=== PATIENT | male | born 1950 | race Caucasian/White ===

== ENCOUNTER 2019-11-05 11:06 | Inpatient (IN) | payer MEDICARE, SELFPAY ==
[2019-11-05] VITALS (22 sets, daily range): BP systolic 121–153; BP diastolic 53–76; PULSE 72–90; RESP 16–32; TEMP 37.1; O2SAT 85–100; BMI 29.0
--- NOTE | ~2019-11-05 | XR_ITS ---
EXAMINATION: XR chest 1V portable INDICATION: Acute respiratory failure TECHNIQUE: Portable AP chest at 0506 hours COMPARISON: 11/06/2019 FINDINGS: Diffuse airspace opacities persist with slight worsening in the left midlung zone. There is subsegmental atelectasis in the right midlung zone. No pleural effusion or pneumothorax is identifie d. The cardiomediastinal silhouette is normal. IMPRESSION: 1. Diffuse airspace opacities with slight worsening in the left midlung zone, likely pneumonia. Reviewed, dictated and finalized at location A. NEERING OPERATOR IMPRESSION: 1. Diffuse airspace opacities with slight worsening in the left midlung zone, l ikely pneumonia.
--- NOTE | ~2019-11-05 | US_ITS ---
EXAMINATION:US venous doppler LE BI INDICATION:Acute respiratory failure with edema. TECHNIQUE: Multiple grayscale, color flow and Doppler images of the lower extremity deep venous syste ms were obtained and reviewed. COMPARISON:No prior studies for comparison. FINDINGS: The common femoral, superficial femoral and popliteal veins demonstrate normal respiratory variation, augmentation and compressibility. Color flow is also seen within the posterior tibial, pe roneal, greater saphenous and profunda veins. IMPRESSION: 1: No lower extremity deep venous thrombosis. Reviewed, dictated and finalized at location A. ERECTOR
--- NOTE | ~2019-11-05 | XR_ITS ---
EXAMINATION: XR chest 1V portable EXAM DATE: 11/05/2019 12:44 INDICATION: Shortness of breath and respiratory distress. TECHNIQUE: Portable AP frontal chest x-ray was obtained. There is no prior study for comparison. FINDINGS: Extensive bilateral reticulonodular airspace disease, could be acute or chronic infectious process or edema. Also possibility of superimposed chronic interstitial lung disease. Please clinical ly correlate. There is no pneumothorax suspected. There are no pleural effusions. Cardiomediastinal s ilhouette is normal. IMPRESSION: Extensive bilateral reticulonodular airspace disease appearance most consistent with inf ectious process but please clinically correlate. Reviewed, dictated and finalized at location B. ETRIC ANAESTHETIST IMPRESSION: Extensive bilateral reticulonodular airspace disease appearance mo st consistent with infectious process but please clinically correlate.
--- NOTE | ~2019-11-05 | XR_ITS ---
XR chest 1V portable DATE: 11/06/2019 07:55 INDICATION: Shortness of breath, respiratory distress. COPD. TECHNIQUE: Portable AP chest on 11/06/2019 at 0751 hours COMPARISON: 11/05/2019 portable AP chest FINDINGS: There are persistent diffuse bilateral reticulonodular infiltrates, mildly increased since 11/05/2019. There is mild discoid atelectasis or scarring in the right upper lung. Heart size appears normal. There is aortic calcification. No apparent pleural effusion. No pneumothor ax. Osteopenia. IMPRESSION: Diffuse bilateral reticulonodular infiltrates, mildly increased since 11/05/2019 Reviewed, dictated and finalized at location A. ING LOT CHAUFFEUR IMPRESSION: Diffuse bilateral reticulonodular infiltrates, mildly increased sin ce 11/05/2019
--- NOTE | ~2019-11-05 | XR_ITS ---
EXAMINATION: XR chest 1V portable DATE: 11/08/2019 05:51 INDICATION: Chronic obstructive pulmonary disease exacerbation. TECHNIQUE: A single frontal view of the chest was obtained on 2 radiographs. COMPARISON: Chest single view 11/07/2019, chest 2 views 06/03/2019 FINDINGS: The patient is rotated to his right. There are airspace opacities in all right lung zones a nd in left mid and lower lung zones. No pleural effusion or pneumothorax. The heart size is normal. IMPRESSION: 1. Diffuse lung disease with worsening on the left, consistent with pulmonary edema versus pneumonia. Reviewed, dictated and finalized at location A. CTOR OF MECHANICAL ENGINEERING IMPRESSION: 1. Diffuse lung disease with worsening on the left, consistent with pulmonary e robert versus pneumonia.
--- NOTE | 2019-11-05 11:24 | ED.SOB ---
HPI - SOB/Dyspnea General Chief Complaint: Shortness of Breath/Dyspnea Stated Complaint: RESP DISTRESS Time Seen by Provider: 11/05/19 11:21 Source: patient Mode of arrival: EMS Limitations: no limitations History of Present Illness HPI Narrative: Pt is a 69 y/o male with a H/o COPD, who presents to the ED, via EMS, from home with c/o SOB. He reports associated cough, but denies CP or a fever. Pt is on 3L home O2. His Pulmonoligist is Dr. Bonilla and his PCP is Dr. Shi. Per spouse, pt has bronchiectasis and the mid level game designer wanted to admit him to the hospital 2 days ago but he was stubborn and went home instead. Pt's spouse woke up at 3AM and the pt's O2 Sat was non-detectable and she upped his O2 and got a reading of 86%. Per spouse, pt's dilantin levels have been low and he is supposed to see a neurologist. Pt's spouse states that he refused to go to the ED and finally she decided she was not going to wait any longer and she called EMS. MD elicited complaint: shortness of breath Pertinent past history: COPD Onset (ago): unknown Context: recent illness (bronchiectasis) Timing: progressively worsening Relieving factors: oxygen Known history of: COPD Associated symptoms: cough Treatment prior to arrival: oxygen Related Data Home oxygen amount: 3 liters Home Medications Medication Instructions Recorded Confirmed albuterol sulfate 11/05/19 aspirin 81 mg PO DAILY 11/05/19 11/05/19 atorvastatin 11/05/19 lisinopril 11/05/19 phenytoin sodium extended PO 11/05/19 Allergies Allergy/AdvReac Type Severity Reaction Status Date / Time No Known Allergies Allergy Verified 11/05/19 11:31 Review of Systems Review of Systems: All systems reviewed & are unremarkable except as noted in HPI and below Constitutional: Constitutional: Denies fever(s) Cardiovascular: Cardiovascular: Denies chest pain Respiratory: Respiratory: Reports cough and Reports dyspnea PMFSH Past Medical History Medical History (Updated 11/05/19 @ 14:01 by Oumar Sumner MD) Bronchiectasis COPD (chronic obstructive pulmonary disease) On home O2 Surgical History Surgical History (Updated 11/05/19 @ 12:38 by Imtiaz Krishnan) No significant past surgical history Family History Family History (Updated 07/02/18 @ 15:03 by DOCTOR UNKNOWN) Other Diabetes mellitus Family history of coronary artery disease Social History Social History Smoking status: Former smoker Smoking end date: 10/08/10 Alcohol intake: never Gender identity (if verbalized by the patient): Male Exam Const: General: alert Nutritional Appearance: well nourished Limitations: no limitations HENMT: Head: normal to inspection Eyes: Pupils: Equal, round and reactive pupils present Neck: Neck: normal visual inspection Chest: Chest palpation & inspection: normal inspection of the chest Resp: Auscultation: wheezes and diminished lung sounds Cardio: Rate: regular rate GI: GI Palp: Yes Soft to palpation Skin: General skin exam: normal color Neuro: General: patient oriented x3 and moves all extremities Extrem: General: normal to inspection Course Course Emergency Course: Obtained history from his as well patient is been in and out with respiratory to difficulty over the last several years. After placing patient on the BiPAP for 1 and half hour his blood gases have markedly improved. I have discussed labs, EKG chest x-ray findings with the patient and the . We will admit him to the ICU for respiratory failure. Discussed with the Dr. Villafuerte and Dr. Lauren . Consultations Consultation #1: Discussed case with Dr. Lauren, the outpatient therapist. Accepted admission to the ICU. Date: 11/05/19 Time: 12:56 Vital Signs Vital signs: Vital Signs Pulse Rate 89 11/05/19 11:16 Respiratory Rate 32 H 11/05/19 11:16 Blood Pressure 139/64 11/05/19 11:16 Pulse Oximetry 100 11/05/19 11:16
--- NOTE | 2019-11-05 11:27 | ECG_ITS ---
Measurements Intervals [place] Rate: 88 P: 71 IL: 153 QRS: 75 QRSD: 91 T: 52 QT: 335 QTc: 406 Interpretive Statements SINUS RHYTHM BASELINE ARTIFACT- V1-V2 NORMAL ECG Electronically Signed On 11-05-2019 16:00:38 CASH SALES AUDIT CLERK by Julien Ku D.O.
[2019-11-05 11:50] LABS: Basophils Absolute Auto 0.1 K/mm3 (0.0-0.1); Basophils Percent Auto 0.5 % (0.2-1.2); Eosinophils Absolute Auto 0.1 K/mm3 (0-0.3); Eosinophils Percent Auto 1.1 % (0-4.4); Hematocrit 43.1 % (42.0-52.0); Hemoglobin 12.6 g/dL (14.0-18.0); Immature Granulocyte Percent A 1.1 % (0-0.5); Lymphocytes Absolute Auto 0.75 K/mm3 (0.9-3.2); Lymphocytes Percent Auto 8.1 % (18.3-44.2); Mean Corpuscular HGB Conc 29.2 g/dl (32-36); Mean Corpuscular Hemoglobin 31.8 pg (26-34); Mean Corpuscular Volume 108.8 fl (80-100); Mean Platelet Volume 9.8 fl (7.4-10.4); Monocytes Absolute Auto 0.9 K/mm3 (0.1-0.6); Monocytes Percent Auto 9.3 % (2.6-8.5); Neutrophils Absolute Auto 7.4 K/mm3 (1.3-6.7); Neutrophils Percent Auto 79.9 % (45.5-73.1); Nucleated Red Blood Cells Perc 0.2 % (0.0-0.2); Platelet Count Result 156 k/mm3 (150-375); Red Blood Count 3.96 M/mm3 (4.6-6.20); Red Cell Distribution Width 17.6 % (11.5-14.5); White Blood Count 9.3 K/mm3 (4.5-10.0)
[2019-11-05 11:52] LABS: Base Excess ABG 21.7 mEq/l (+/-2.0); Fractional Inspired Oxygen 32 %; HCO3 ABG 56.3 mEq/l (22.0-26.0); Oxygen Content ABG 15.3 %vol (16.0-22.0); Oxyhemoglobin 81.8 % THb (90.0-100.0); PO2 ABG 53.7 mmHg (80.0-100.0); PO2 FiO2 Ratio Arterial Blood 1.68 %; Total Hemoglobin 13.3 g/dL (12.0-18.0)
[2019-11-05 12:13] LABS: Add Urine Microscopic? YES; Appearance Urine Cloudy (Clear); Bilirubin Urine Negative (Negative); Blood Urine Negative (Negative); Color Urine Amber (Yellow); Glucose Urine UA Negative (Negative); Ketones Urine Negative (Negative); Leukocyte Esterase Ur Negative LEU/UL (Negative); Nitrate Urine Negative (Negative); Protein Urine 2+ mg/dL (Negative); RBC Urine 0-2 /hpf (0-2); Specific Grav Ur 1.028 (1.001-1.035); Squamous Epithelial Cell Urine Occasional /hpf (Few); WBC Urine 0-3 /hpf
[2019-11-05 12:29] LABS: Platelet Estimate Adequate (Adequate)
[2019-11-05 12:31] LABS: Device NASAL CANNULA; Modified Allen's Test Pass; Oxygen Saturation ABG 76.7 % (95.0-100.0); PCO2 ABG 140.6 mmHg (35.0-45.0); Site Drawn RIGHT RADIAL
[2019-11-05 13:28] LABS: Fractional Inspired Oxygen 40 %; HCO3 ABG 43.7 mEq/l (22.0-26.0); Methemoglobin ABG 0.2 %THb (0-1.5); Oxygen Content ABG 15.2 %vol (16.0-22.0); Oxyhemoglobin 81.8 % THb (90.0-100.0); PO2 FiO2 Ratio Arterial Blood 1.27 %; Total Hemoglobin 13.2 g/dL (12.0-18.0)
[2019-11-05 13:28] LABS: Alanine Aminotransferase 16 U/L (4-50); Albumin Level 3.3 g/dL (3.5-5.1); Alkaline Phosphatase 112 U/L (38-126); Aspartate Amino Transferase 28 U/L (17-59); Bilirubin,Total 0.2 mg/dL (0.2-1.3); Blood Urea Nitrogen 28 mg/dL (9-20); Calcium 8.6 mg/dL (8.4-10.2); Carbon Dioxide > 40 mmol/L (22-30); Chloride 90 mmol/L (98-107); Estimated CRCL calculation 62 ml/min; Estimated Glomerular Filt Rate > 60; Glucose 90 mg/dL (75-110); Potassium 5.1 mmol/L (3.4-5.0); Sodium 141 mmol/L (137-145)
[2019-11-05 13:31] LABS: pH ABG 7.246 (7.350-7.450)
[2019-11-05 13:32] LABS: Device NON-INVASIVE VENT; Modified Allen's Test Pass; PCO2 ABG 102.8 mmHg (35.0-45.0); Site Drawn RIGHT RADIAL
[2019-11-05 13:33] LABS: Non-Invasive Expiratory Pressure 12 CMH2O; Non-Invasive Inspiratory Pressure 20 CMH2O; Non-Invasive Vent Rate 14 /MIN
[2019-11-05 13:36] LABS: NT Pro B Type Natriuretic Pept 754 PG/ML (5-100)
--- NOTE | 2019-11-05 15:27 | ADMGEN ---
This patient, Manuel Zavaleta, was admitted to Intensive Care Unit-3. Patient/family oriented to hospital policies and general routines including ID bracelet, bed and alarms, visiting hours, pain management, procedures, bathroom and other care routines, personal items, smoking policy, room service/diet, and visiting hours. Valuables list has been completed. Information on how to activate the Rapid Response Team has been discussed. Patient/Family are encouraged to report perceived risks to care and to ask questions if they do not understand what they are told or what they should do.
[2019-11-05] MEDS: SODIUM CHLORIDE 0.9% IV 1,000 ML 100 ML IV CONT (16:09)
--- NOTE | 2019-11-05 16:46 | WPDCNINT ---
Assessment and Plan Assessment and plan (1) Acute and chronic respiratory failure: Qualifiers: Respiratory failure complication: hypercapnia Qualified Code(s): J96.22 - Acute and chronic respiratory failure with hypercapnia Code(s): J96.20 - Acute and chronic respiratory failure, unspecified whether with hypoxia or hypercapnia Status: Acute Assessment and Plan: Patient with acute on chronic respiratory failure with severe hypercapnia and hypoxia . However patient`s clinical presentation and vital signs not co-relating with ABG values. Cxr with chronic changes with no acute dense infiltrate or PVC. Patient has been started on Iv steroids for presumed COPD exacerbation . Will check influenza panel . WBC count is normal with no fever. Will hold off on abx. Continue nebs . Multiple BIPAP changes made however no improvement noted in ABG`s. Placed on AVAPS. May need intubation however alert and awake . Echo in past with severe pulmonary HTN . No significant PVC on cxr per my assessment . No LE edema . Hence will hold off any diuresis . However with significant hypoxia there is concern for opening of shunt from worsening pul HTN from long standing COPD. Will check echo in am . Continue supportive care with BIPAP for now . (2) COPD (chronic obstructive pulmonary disease): Code(s): J44.9 - Chronic obstructive pulmonary disease, unspecified Status: Acute Assessment and Plan: Placed on IV steroids , nebs . No significant wheezing but decreased b/l air entry noted.Patient is a current active smoker. started on levaquin . (3) Elevated troponin: Code(s): R79.89 - Other specified abnormal findings of blood chemistry Status: Acute Assessment and Plan: Troponin has gone up to 2. There is no EKG change. Could be secondary to the respiratory failure and demand ischemia. No chest pain. will place on full dose anticoagulation with sq lovenox and will recheck echo in am for wall motion abnormalities (4) Hypertension: Code(s): I10 - Essential (primary) hypertension Status: Acute Assessment and Plan: Blood pressure adequate . BMP with hyperkalemia. hold lisinopril. (5) Obstructive sleep apnea: Code(s): G47.33 - Obstructive sleep apnea (adult) (pediatric) Status: Acute Assessment and Plan: currently on continous BIPAP (6) Seizure disorder: Code(s): G40.909 - Epilepsy, unspecified, not intractable, without status epilepticus Status: Acute Assessment and Plan: Since on continous BIPAP , will change dilantin to IV. (7) DVT prophylaxis: Code(s): Z29.9 - Encounter for prophylactic measures, unspecified Status: Acute Assessment and Plan: on full dose lovenox [place]ider Consult Note Consult date: 11/05/19 Time Seen: 16:00 HPI: Manuel Zavaleta is a 69 year old male with PMHx of COPD, ? bronchiectasis and severe pulmonary HTN who presented to emergency room today due to worsening lethargy and respiratory distress. Per patient had seen his bulb grader on 11/03 who advised him to get admitted due to worsening respiratory status . However patient refused and went back home. Per today he was feeling very tired and lethargic and difficult to arouse . she had also noted edema of b/l LE . Hence she called EMS to bring him to hospital . In ER patient was noted to be in hypercapnic and hypoxic respiratory failure with Ph of 7.2 and Pco2 of 140 with Po2 of 47. He was however awake and alert and able to follow all commands. He was placed on BIPAP and there was some improvement in his ABG. He was tx to ICU for further care. In ICU further changes were made to his BIPAP settings and he was started on IV steroids and nebs. He continued to remain awake and alert with stable vitals . Review of Systems Review of Systems: All systems reviewed & are unremarkable except as noted in HPI and below Constitutional: Constitutional: Den
[2019-11-05 17:08] LABS: Alveolar/Arterial O2 Gradient 101.3 mmHg; Base Excess ABG 18.5 mEq/l (+/-2.0); Fractional Inspired Oxygen 40 %; HCO3 ABG 50.8 mEq/l (22.0-26.0); Oxygen Content ABG 15.3 %vol (16.0-22.0); Oxyhemoglobin 84.2 % THb (90.0-100.0); PO2 ABG 54.1 mmHg (80.0-100.0); PO2 FiO2 Ratio Arterial Blood 1.35 %; Total Hemoglobin 12.9 g/dL (12.0-18.0)
[2019-11-05 17:09] LABS: Oxygen Saturation ABG 80.4 % (95.0-100.0); PCO2 ABG 112.9 mmHg (35.0-45.0); Site Drawn LEFT BRACHIAL; pH ABG 7.271 (7.350-7.450)
[2019-11-05 17:10] LABS: Device NON-INVASIVE VENT; Non-Invasive Expiratory Pressure 10 CMH2O; Non-Invasive Inspiratory Pressure 20 CMH2O; Non-Invasive Vent Rate 14 /MIN
--- NOTE | 2019-11-05 17:36 | PM.IMHP ---
H&P: HPI History of Present Illness Chief complaint: Acute on chronic respiratory failure Narrative: Date of visit 11/05/2019 1630. Manuel Zavaleta is a 69 year old hypertensive white male with COPD and bronchiectasis on home O2 who presented to the emergency room with increasing lethargy she shortness of breath and edema. Been on home O2 for number of years with CPAP at night for his obstructive sleep apnea. He had seen his solar/renewable energy sales Dr. Joiner on 11/03 and was encouraged be admitted at that time but refused to return home. He has gotten more lethargic again short of breath still his brought him to the emergency room today. He denies any increasing cough fever chills or chest pain. Has had some pedal edema ,this somewhat chronic. He has been taking his medication regularly and uses updrafts at home. Been hospitalized here last May for COPD exacerbation respiratory failure he had an echo which showed severe pulmonary hypertension with normal size right ventricle and normal EF with over 70%. No history of DVT or PE. And as stated has chronic cough that has not changed Review of Systems Review of Systems: Narrative: Constitutional: No fever chills. Appetite has been decreased somewhat but weight has been stable Eye: No double vision scotoma Mouth no pharyngitis laryngitis Pulmonary as per present illness CV is stated no chest pain and no palpitation GI no melena hematochezia diarrhea constipation no dysuria no hematuria with history of radiation for prostate cancer Muscle skeletal occasionally upper back discomfort nothing new Integument no skin breakdown rashes Neuro as history of seizures but none since 2011 Psych affect appropriate cooperative The remainder review of systems if not documented here were evaluated and found to be negative [facility] Past Medical History Medical History (Updated 11/05/19 @ 17:46 by Bandar Villafuerte MD) Bronchiectasis COPD (chronic obstructive pulmonary disease) On home O2 Surgical History Surgical History (Updated 11/05/19 @ 12:38 by Imtiaz rKishnan) No significant past surgical history Family History Family History (Updated 07/02/18 @ 15:03 by DOCTOR UNKNOWN) Other Diabetes mellitus Family history of coronary artery disease Social History Social History Smoking packs per day: 0.2 Smoking cigarettes per day: 4.0 Years smoked: 55 Smoking pack-years: 11.00 Smoking status: Current every day smoker Tobacco type: cigarettes Smoking end date: 10/08/10 Alcohol intake: former Gender identity (if verbalized by the patient): Male Spiritual care concerns: No Agree to blood products: Yes Meds Home Medications and Allergies Home Medications Medication Instructions Recorded Confirmed Type albuterol sulfate 11/05/19 History aspirin 81 mg PO DAILY 11/05/19 11/05/19 History atorvastatin 11/05/19 History lisinopril 11/05/19 History phenytoin sodium extended PO 11/05/19 History Allergies Allergy/AdvReac Type Severity Reaction Status Date / Time No Known Allergies Allergy Verified 11/05/19 11:31 Vital Signs Vital Signs - 24 hr 11/05/19 11:16 11/05/19 11:19 11/05/19 11:32 Temperature 37.1 C Pulse Rate 89 89 90 Respiratory Rate 32 H 32 H 25 H Blood Pressure 139/64 139/64 143/58 H Pulse Oximetry 100 100 100 11/05/19 11:47 11/05/19 12:02 11/05/19 12:15 Temperature Pulse Rate 89 88 84 Respiratory Rate 28 H 30 H 28 H Blood Pressure 150/62 H 153/63 H Pulse Oximetry 91 100 11/05/19 12:46 11/05/19 14:33 11/05/19 14:45 Temperature Pulse Rate 85 82 80 Respiratory Rate 21 H 18 26 H Blood Pressure 121/53 L 140/63 Pulse Oximetry 90 98 90 11/05/19 15:05 11/05/19 15:57 11/05/19 16:00 Temperature Pulse Rate 79 78 Respiratory Rate 26 H 29 H Blood Pressure Pulse Oximetry 92 11/05/19 17:11 11/05/19 17:29 Temperature Pul
--- NOTE | 2019-11-05 18:00 | PM.IMHP ---
H&P: HPI History of Present Illness Chief complaint: Acute on chronic respiratory failure Narrative: Manuel Zavaleta is a 69 year old male [facility] Past Medical History Medical History (Updated 11/05/19 @ 17:46 by Bandar Villafuerte MD) Bronchiectasis COPD (chronic obstructive pulmonary disease) On home O2 Surgical History Surgical History (Updated 11/05/19 @ 18:03 by Bandar Villafuerte MD) No significant past surgical history AAA repair endoluminal Family History Family History (Updated 07/02/18 @ 15:03 by DOCTOR UNKNOWN) Other Diabetes mellitus Family history of coronary artery disease Social History Social History Smoking packs per day: 0.2 Smoking cigarettes per day: 4.0 Years smoked: 55 Smoking pack-years: 11.00 Smoking status: Current every day smoker Tobacco type: cigarettes Smoking end date: 10/08/10 Alcohol intake: former Gender identity (if verbalized by the patient): Male Spiritual care concerns: No Agree to blood products: Yes Meds Home Medications and Allergies Home Medications Medication Instructions Recorded Confirmed Type albuterol sulfate 11/05/19 History aspirin 81 mg PO DAILY 11/05/19 11/05/19 History atorvastatin 11/05/19 History lisinopril 11/05/19 History phenytoin sodium extended PO 11/05/19 History Allergies Allergy/AdvReac Type Severity Reaction Status Date / Time No Known Allergies Allergy Verified 11/05/19 11:31 Vital Signs Vital Signs - 24 hr 11/05/19 11:16 11/05/19 11:19 11/05/19 11:32 Temperature 37.1 C Pulse Rate 89 89 90 Respiratory Rate 32 H 32 H 25 H Blood Pressure 139/64 139/64 143/58 H Pulse Oximetry 100 100 100 11/05/19 11:47 11/05/19 12:02 11/05/19 12:15 Temperature Pulse Rate 89 88 84 Respiratory Rate 28 H 30 H 28 H Blood Pressure 150/62 H 153/63 H Pulse Oximetry 91 100 11/05/19 12:46 11/05/19 14:33 11/05/19 14:45 Temperature Pulse Rate 85 82 80 Respiratory Rate 21 H 18 26 H Blood Pressure 121/53 L 140/63 Pulse Oximetry 90 98 90 11/05/19 15:05 01/29/20 15:57 11/05/19 16:00 Temperature Pulse Rate 79 78 Respiratory Rate 26 H 29 H Blood Pressure Pulse Oximetry 92 11/05/19 17:11 11/05/19 17:29 Temperature Pulse Rate 81 77 Respiratory Rate 28 H 17 Blood Pressure Pulse Oximetry 92 95 H&P: Results Labs Labs: Short CBC 11/05/19 Range/Units 11:42 WBC 9.3 (4.5-10.0) K/mm3 Hgb 12.6 L (14.0-18.0) g/dL Hct 43.1 (42.0-52.0) % Plt Count 156 (150-375) k/mm3 BMP 11/05/19 13:08 Sodium 141 Potassium 5.1 H Chloride 90 L Carbon Dioxide > 40 H BUN 28 H Creatinine 1.00 Glucose 90 Calcium 8.6 Cardiac Enzymes 11/05/19 11/05/19 Range/Units 13:08 16:08 Troponin I 1.160 H* 2.160 H* D (0.000-0.034) ng/mL Liver Function 11/05/19 Range/Units 13:08 Total Bilirubin 0.2 (0.2-1.3) mg/dL AST 28 (17-59) U/L ALT 16 (4-50) U/L Alkaline Phosphatase 112 (38-126) U/L Albumin 3.3 L (3.5-5.1) g/dL Urine 11/05/19 Range/Units 12:05 Urine Color Maisha (Yellow) Urine Appearance Cloudy H (Clear) Urine pH 5.0 (5.0-9.0) Ur Specific [place] 1.028 (1.001-1.035) Urine Protein 2+ H (Negative) mg/dL Urine Glucose (UA) Negative (Negative) mg/dL
[2019-11-05] MEDS: MORPHINE SULFATE 4 MG/ML INJ 2 MG IV PUSH (18:02)
[2019-11-05] MEDS: ENOXAPARIN 100 MG/ML SYRINGE 90 MG SUB-Q (18:03)
[2019-11-05] MEDS: ALBUTEROL SULFATE NEB 2.5 MG/0.5 ML INH 5 MG INHALATION (19:56)
[2019-11-05] MEDS: IPRATROPIUM BR 0.02% INH SOLN 0.5 MG/2.5 ML VIAL INHALATION (19:56)
[2019-11-05 20:22] LABS: Alveolar/Arterial O2 Gradient 218.1 mmHg; Base Excess ABG 21.3 mEq/l (+/-2.0); Fractional Inspired Oxygen 60 %; HCO3 ABG 54.9 mEq/l (22.0-26.0); Oxygen Content ABG 16.1 %vol (16.0-22.0); Oxyhemoglobin 89.1 % THb (90.0-100.0); PO2 ABG 65.9 mmHg (80.0-100.0); Total Hemoglobin 12.8 g/dL (12.0-18.0)
[2019-11-05 20:25] LABS: Device NON-INVASIVE VENT; Modified Allen's Test Pass; Non-Invasive Expiratory Pressure 8 CMH2O; Non-Invasive Inspiratory Pressure 20 CMH2O; Non-Invasive Vent Rate 14 /MIN; Oxygen Saturation ABG 86.8 % (95.0-100.0); PCO2 ABG 130.7 mmHg (35.0-45.0); Site Drawn RIGHT RADIAL; pH ABG 7.241 (7.350-7.450)
[2019-11-05] MEDS: FAMOTIDINE 20 MG/2 ML VIAL IV PUSH (21:17)
[2019-11-05] MEDS: PHENYTOIN SODIUM INJ 100 MG/2 ML VIAL (*BKC) IV PUSH (21:17)
[2019-11-05] MEDS: methylPREDNISolone SOD SUCC 125 MG VIAL 60 MG IV PUSH (21:21)
[2019-11-05 22:45] LABS: Alveolar/Arterial O2 Gradient 216.3 mmHg; Base Excess ABG 21.6 mEq/l (+/-2.0); Carboxyhemoglobin 1.4 % THb (0-2.0); Fractional Inspired Oxygen 60 %; Methemoglobin ABG 0.4 %THb (0-1.5); Oxygen Content ABG 15.9 %vol (16.0-22.0); Oxygen Saturation ABG 88.2 % (95.0-100.0); Oxyhemoglobin 89.8 % THb (90.0-100.0); PO2 ABG 68.6 mmHg (80.0-100.0); PO2 FiO2 Ratio Arterial Blood 1.14 %; Reduced Hemoglobin 8.4 %THb (0-5.0); Total Hemoglobin 12.6 g/dL (12.0-18.0); pH ABG 7.245 (7.350-7.450)
[2019-11-05 22:46] LABS: Device NON-INVASIVE VENT; Modified Allen's Test Pass; Non-Invasive Vent Rate 20 /MIN; PCO2 ABG 129.9 mmHg (35.0-45.0); Site Drawn RIGHT RADIAL
[2019-11-05 22:47] LABS: Non-Invasive Expiratory Pressure 10 CMH2O
[2019-11-05 23:10] LABS: Influenza Control Positive
[2019-11-06] VITALS (28 sets, daily range): BP systolic 109–170; BP diastolic 64–76; PULSE 65–94; RESP 16–25; TEMP 36.6–36.9; O2SAT 90–96
--- NOTE | 2019-11-06 | ECHO_ITS ---
Patient Info Name: Quentin Zavaleta Age: 69 years : 1950 Gender: Male Ht: 69 in Wt: 197 lbs BSA: 2.11 m2 HR: 80 bpm BP: 147 / 72 mmHg Heart Rhythm: Sinus Rhythm Technical Quality: Fair Exam Date: 11/06/2019 10:07 AM Exam Location: [facility] Patient Status: Inpatient Admit Date: 11/05/2019 Staff Ordering Physician: Jessi Lauren MD Supervisor Rose Grading: Michele Carney RDCS Attending Provider: Bandar Villafuerte MD Exam Type: CA echo dop color flow w con Study Info Indications J96.02 - Acute respiratory failure with hypercapnia Complete two-dimensional, color flow and Doppler transthoracic echocardiogram is performed with contrast to opacify the left ventrical and to improve the deliniation of the left ventrical endocarial boarders. Strain analysis performed. Contrast/Agitated Saline Contrast/Ag. Saline: Definity Amount: 3.00 ml Administered By: Aj Teague RN IV Access Condition: patent with no signs of infiltration History/Risk Factors Acute on chronic respiratory failure; elevated trops, COPD, pHTN, Edema. Summary 1. There is mildly increased left ventricular wall thickness. 2. Left ventricular wall motion is grossly normal, however endocardial definition is limited. Definity Echo contrast used. EF estimated to be > 70%. 3. The left ventricular diastolic function is grade I diastolic dysfunction. 4. Global longitudinal strain is moderately decreased at -12 %, suggesting early systolic dysfunction. 5. Left atrial chamber dimension is mildly enlarged. 6. Severe pulmonary hypertension, estimated pulmonary arterial systolic pressure is 70 mmHg. 7. There is mild tricuspid valve regurgitation. Left Ventricle Left ventricular chamber dimension is normal. Left ventricular systolic function is normal, estimated at >70%. There is mildly increased left ventricular wall thickness. Left ventricular wall motion is grossly normal, however endocardial definition is limited. Definity Echo contrast used. EF estimated to be > 70%. The left ventricular diastolic function is grade I diastolic dysfunction. Global longitudinal strain is moderately decreased at -12 %, suggesting early systolic dysfunction. Right Ventricle Right ventricular chamber dimension is normal. Right ventricular systolic function is normal. Left Atria Left atrial chamber dimension is mildly enlarged. Right Atria Right atrial chamber dimension is normal. Aortic Valve The aortic valve is trileaflet. There is mild aortic valve sclerosis. There is no aortic valve stenosis. There is no aortic valve regurgitation. Pulmonic Valve The pulmonic valve is normal. There is no pulmonic valve stenosis. There is trace pulmonic regurgitation. Mitral Valve The mitral valve has normal leaflets. There is no mitral valve stenosis. There is no mitral valve regurgitation. Tricuspid Valve The tricuspid valve leaflets are normal. There is no significant tricuspid valve stenosis. There is mild tricuspid valve regurgitation. Severe pulmonary hypertension, estimated pulmonary arterial systolic pressure is 70 mmHg. Pericardium/Pleural The pericardium appears normal. There is no pericardial effusion. Inferior Vena Cava Normal inferior vena cava with >50% collapse upon inspiration consistent with Empty right atrial pressure, 15 mmHg. Aorta The aortic root size at the sinus of Valsalva is normal. The prox ascending aorta
[2019-11-06 00:53] LABS: Alveolar/Arterial O2 Gradient 272.2 mmHg; Base Excess ABG 16.2 mEq/l (+/-2.0); Carboxyhemoglobin 1.2 % THb (0-2.0); Device NON-INVASIVE VENT; Fractional Inspired Oxygen 60 %; Methemoglobin ABG 0.4 %THb (0-1.5); Oxygen Content ABG 15.7 %vol (16.0-22.0); Oxygen Saturation ABG 87.4 % (95.0-100.0); Oxyhemoglobin 88.6 % THb (90.0-100.0); PCO2 ABG 87.5 mmHg (35.0-45.0); PO2 ABG 59.4 mmHg (80.0-100.0); PO2 FiO2 Ratio Arterial Blood 0.99 %; Reduced Hemoglobin 9.8 %THb (0-5.0); Site Drawn RIGHT FEMORAL; Total Hemoglobin 12.6 g/dL (12.0-18.0); pH ABG 7.339 (7.350-7.450)
[2019-11-06 00:54] LABS: Non-Invasive Vent Rate 20 /MIN
[2019-11-06 00:55] LABS: Non-Invasive Expiratory Pressure 8 CMH2O; Non-Invasive Inspiratory Pressure 26 CMH2O
--- NOTE | 2019-11-06 01:03 | PM.EVENT ---
Event Note Event Note Event Note: 11/04/2019 at 11:00 p.m. with repeat evaluation at 11/05/2019 approximately 00:30 I was called by the finisher fiberglass boat parts to evaluate patient due to ABG's that were not improving despite multiple BiPAP/ventilator adjustments. The patient had been started out on BiPAP of 20/12 with a rate of 14 in the ER. Demonstrated worsening pH in his CO2 and climbed from 112 up to 130. His PO2 improved from 54-65. His BiPAP was changed to 20/8 with a rate of 14. However the patient himself was breathing at a rate of around 20. His repeat ABG remained the same. Patient was switched to assist control with no improvement in his ABG. The patient remained alert and oriented. The finisher fiberglass boat parts requested I evaluate the patient as he may need intubation. When I evaluated the patient he was actually alert and oriented x4 and joking with staff. Hit id intubate the patient when he was so alert and seemed relatively well compensated despite his ABG values. The patient did have a martino and had a significant leak around the BiPAP mask. I asked the patient if he would mind being shaved as this would hopefully help him ventilate better and prevent intubation. The patient agreed to being shaved. He stated that his home settings were between 8 and 20. I am unclear if this was 20/8 or on a auto titrating CPAP with a range between 8 and 20. Either way, I change the patient's BiPAP settings to 26/8 with a rate of 20 repeat ABG demonstrated pH is 7.33 pCO2 of 87 and PO2 of 59 with a bicarb of 46 the specimen was a slightly mixed specimen. I obtained the specimen with ultrasound guidance in the right femoral. However the vessel was deep and difficult to access with a 1.5 inch needle. The patient's oxygen saturations were between 93 and 96% while I was in the patient's room performing procedure. Given the significant improvement in the patient's ABG a will continue patient on current settings of 26/8 with a rate of 20. Will repeat ABG at 6:00 a.m.. I updated the finisher fiberglass boat parts on the patient's condition and she agrees with current plan. 30 minutes was spent in critical care activities including reviewing the patient's chart, discussion the patient's case with the finisher fiberglass boat parts, discussion with the patient, and nursing staff/RT.
[2019-11-06] MEDS: IPRATROPIUM BR 0.02% INH SOLN 0.5 MG/2.5 ML VIAL INHALATION ×4 (03:07→19:59)
[2019-11-06] MEDS: ALBUTEROL SULFATE NEB 2.5 MG/0.5 ML INH 5 MG INHALATION ×4 (03:07→19:59)
[2019-11-06 04:33] LABS: Basophils Percent Auto 0.5 % (0.2-1.2); Eosinophils Percent Auto 0.2 % (0-4.4); Hematocrit 38.2 % (42.0-52.0); Hemoglobin 11.2 g/dL (14.0-18.0); Immature Granulocyte Absolute 0.04 K/mm3 (0.00-0.031); Immature Granulocyte Percent A 0.7 % (0-0.5); Lymphocytes Absolute Auto 0.68 K/mm3 (0.9-3.2); Lymphocytes Percent Auto 11.7 % (18.3-44.2); Mean Corpuscular HGB Conc 29.3 g/dl (32-36); Mean Corpuscular Hemoglobin 31.4 pg (26-34); Mean Platelet Volume 9.4 fl (7.4-10.4); Monocytes Absolute Auto 0.5 K/mm3 (0.1-0.6); Monocytes Percent Auto 8.1 % (2.6-8.5); Neutrophils Absolute Auto 4.6 K/mm3 (1.3-6.7); Neutrophils Percent Auto 78.8 % (45.5-73.1); Platelet Count Result 133 k/mm3 (150-375); Red Blood Count 3.57 M/mm3 (4.6-6.20); Red Cell Distribution Width 17.2 % (11.5-14.5); White Blood Count 5.8 K/mm3 (4.5-10.0)
[2019-11-06 04:50] LABS: Blood Urea Nitrogen 35 mg/dL (9-20); Calcium 8.4 mg/dL (8.4-10.2); Carbon Dioxide > 40 mmol/L (22-30); Chloride 89 mmol/L (98-107); Estimated CRCL calculation 69 ml/min; Estimated Glomerular Filt Rate > 60; Glucose 90 mg/dL (75-110); Lactate Dehydrogenase 310 U/L (313-618); Potassium 5.1 mmol/L (3.4-5.0); Sodium 137 mmol/L (137-145)
[2019-11-06 05:07] LABS: Platelet Estimate Adequate (Adequate)
[2019-11-06 05:09] LABS: Hypochromasia 1+ (NORMAL)
[2019-11-06 05:12] LABS: Large Platelets Present; Stomatocytes 1+ (NORMAL)
[2019-11-06 05:37] LABS: Iron 29 ug/dL (49-181)
[2019-11-06 05:46] LABS: Percent Iron Saturation 9 % (20-50)
[2019-11-06 06:16] LABS: Alveolar/Arterial O2 Gradient 309.2 mmHg; Base Excess ABG 17.9 mEq/l (+/-2.0); Carboxyhemoglobin 0.8 % THb (0-2.0); Fractional Inspired Oxygen 65 %; HCO3 ABG 47.5 mEq/l (22.0-26.0); Methemoglobin ABG 0.3 %THb (0-1.5); Oxygen Content ABG 15.3 %vol (16.0-22.0); Oxygen Saturation ABG 88.2 % (95.0-100.0); PO2 ABG 59.9 mmHg (80.0-100.0); PO2 FiO2 Ratio Arterial Blood 0.92 %; Reduced Hemoglobin 9.9 %THb (0-5.0); Total Hemoglobin 12.2 g/dL (12.0-18.0); pH ABG 7.356 (7.350-7.450)
[2019-11-06 06:18] LABS: Device NON-INVASIVE VENT; Modified Allen's Test Pass; PCO2 ABG 86.8 mmHg (35.0-45.0); Site Drawn RIGHT RADIAL
[2019-11-06 06:19] LABS: Non-Invasive Expiratory Pressure 8 CMH2O; Non-Invasive Inspiratory Pressure 26 CMH2O; Non-Invasive Vent Rate 20 /MIN
[2019-11-06] MEDS: ENOXAPARIN 100 MG/ML SYRINGE 90 MG SUB-Q ×2 (06:34→16:36)
[2019-11-06] MEDS: PHENYTOIN SODIUM INJ 100 MG/2 ML VIAL (*BKC) IV PUSH ×3 (06:34→21:47)
[2019-11-06] MEDS: methylPREDNISolone SOD SUCC 125 MG VIAL 60 MG IV PUSH ×3 (06:40→21:47)
--- NOTE | 2019-11-06 07:03 | ECG_ITS ---
Measurements Intervals [place] Rate: 86 P: 11 SC: 133 QRS: 63 QRSD: 92 T: 56 QT: 337 QTc: 404 Interpretive Statements SINUS RHYTHM BORDERLINE R WAVE PROGRESSION, ANTERIOR LEADS BASELINE ARTIFACT- II, III, AVL BORDERLINE ECG Electronically Signed On 11-06-2019 10:36:07 SALES PROMOTION MANAGER by Julien Ku D.O.
[2019-11-06] MEDS: FAMOTIDINE 20 MG/2 ML VIAL IV PUSH ×2 (08:23→21:46)
--- NOTE | 2019-11-06 09:10 | WPDINTPN ---
Progress Note: A&P Assessment and Plan (1) Acute and chronic respiratory failure: Qualifiers: Respiratory failure complication: hypercapnia Qualified Code(s): J96.22 - Acute and chronic respiratory failure with hypercapnia Code(s): J96.20 - Acute and chronic respiratory failure, unspecified whether with hypoxia or hypercapnia Status: Acute Assessment and Plan: Patient with acute on chronic respiratory failure with severe hypercapnia and hypoxia . - However patient`s clinical presentation and vital signs not co-relating with ABG values. - Cxr and ABGs reviewed - if patient is more stable will obtain CT chest - continue IV steroids for presumed COPD exacerbation. - influenza panel is negativenegative - Echo in past with severe pulmonary HTN . No LE edema . Hence will hold off any diuresis. - However with significant hypoxia there is concern for opening of shunt from worsening pul HTN from long standing COPD. Will check echo in today . Continue supportive care with BIPAP for now . - pulmonology has been consulted (2) COPD (chronic obstructive pulmonary disease): Code(s): J44.9 - Chronic obstructive pulmonary disease, unspecified Status: Acute Assessment and Plan: Placed on IV steroids , nebs . No significant wheezing but decreased b/l air entry noted.Patient is a current active smoker. continue levaquin . (3) Elevated troponin: Code(s): R79.89 - Other specified abnormal findings of blood chemistry Status: Acute Assessment and Plan: Troponin has gone up to 2. There is no EKG change. Could be secondary to the respiratory failure and demand ischemia. No chest pain. - on full-dose Lovenox will check echocardiogram today for wall motion abnormalities (4) Hypertension: Code(s): I10 - Essential (primary) hypertension Status: Acute Assessment and Plan: Blood pressure adequate. BMP with hyperkalemia. hold lisinopril. - will add hydralazine p.r.n. (5) Obstructive sleep apnea: Code(s): G47.33 - Obstructive sleep apnea (adult) (pediatric) Status: Acute Assessment and Plan: currently on continous BIPAP (6) Seizure disorder: Code(s): G40.909 - Epilepsy, unspecified, not intractable, without status epilepticus Status: Acute Assessment and Plan: Since on continous BIPAP , - on IV Dilantin. (7) DVT prophylaxis: Code(s): Z29.9 - Encounter for prophylactic measures, unspecified Status: Acute Assessment and Plan: on full dose lovenox Additional Plan discussed with patient updated with his condition and plan of care. Code status: Full code Critical care time spent: 34 minutes Due to a high probability of clinically significant, life threatening deterioration, the patient required my highest level of preparedness to intervene emergently and I personally spent this critical care time directly and personally managing the patient. This critical care time included obtaining a history; examining the patient; pulse oximetry; ordering and review of studies; arranging urgent treatment with development of a management plan; evaluation of patient's response to treatment; frequent reassessment; and discussions with other providers. It was exclusive of separately billable procedures and treating other patients and teaching time. Please see Assessment and Plan section and the rest of the note for further information on patient assessment and treatment Subjective Date/time seen: 11/06/19 09:10 Reason for consult: Hypercapnic respiratory failure, troponin elevation 11/06/2019: Patient seen and examined the ICU, is alert, awake, follows simple commands. On BiPAP 26/8, 60% FiO2 with good O2 sats, ABGs this morning shows improvement in his pCO2, which is down to 86. urine output has been adequate. Patient is hemodynamically stable. Patient denies any chest pain, abdominal pain, nausea, vo
[2019-11-06] MEDS: MORPHINE SULFATE 4 MG/ML INJ 2 MG IV PUSH ×3 (09:22→19:36)
[2019-11-06] MEDS: hydrALAZINE HCL 20 MG/ML VIAL 10 MG IV PUSH ×2 (10:37→21:50)
[2019-11-06] MEDS: methylPREDNISolone SOD SUCC 125 MG VIAL IV PUSH (10:37)
[2019-11-06] MEDS: PERFLUTREN LIPID MICROSPHERES 1.5 ML VIAL DILUTED TO 10 ML TOTAL VOLUME IV PUSH (10:38)
[2019-11-06 10:46] LABS: Phenytoin Dilantin 4 ug/mL (10-20)
--- NOTE | 2019-11-06 16:54 | PM.IMPN ---
Progress Note: A&P Assessment and Plan (1) Acute and chronic respiratory failure: Qualifiers: Respiratory failure complication: hypercapnia Qualified Code(s): J96.22 - Acute and chronic respiratory failure with hypercapnia Code(s): J96.20 - Acute and chronic respiratory failure, unspecified whether with hypoxia or hypercapnia Status: Acute Assessment and Plan: His blood gases are not correlating clinically with a pulse ox. Also with the degree of CO2 retention would expect pH to be much lower since when he was here before his pH is were in the 7.3 range when his pCO2 was only in the 70s. Must be getting a mixed arterial venous or venous gas on the blood gas. Chest x-ray reticular nodular could be is chronic bronchiectasis, but could be infectious also. Blood cultures obtained and calcitonin level ordered, emperic levafloxacin Full-dose anticoagulation initially though doubt PE but if improves probable CTA, venous Doppler is negative of lower extremities (2) COPD (chronic obstructive pulmonary disease): Code(s): J44.9 - Chronic obstructive pulmonary disease, unspecified Status: Acute Assessment and Plan: Continue updrafts and steroids and initially cover with Levaquin for atypical infection also (3) Elevated troponin: Code(s): R79.89 - Other specified abnormal findings of blood chemistry Status: Acute Assessment and Plan: Troponin has gone up to 2. There is no EKG change. Could be secondary to the respiratory failure and demand ischemia. No chest pain. Snuff Container Inspector has started full anticoagulation and will recheck echo for wall motion abnormalities (4) Hypertension: Code(s): I10 - Essential (primary) hypertension Status: Acute Assessment and Plan: Blood pressure slightly higher in with potassium up sawmill relief worker started hydralazine (5) Obstructive sleep apnea: Code(s): G47.33 - Obstructive sleep apnea (adult) (pediatric) Status: Acute Assessment and Plan: Continue nocturnal BiPAP (6) Seizure disorder: Code(s): G40.909 - Epilepsy, unspecified, not intractable, without status epilepticus Status: Acute Assessment and Plan: Continue Dilantin therapy (7) Anemia: Code(s): D64.9 - Anemia, unspecified Status: Acute Assessment and Plan: Hemoglobin mildly depressed and much is same as it had been before. In May anemia parameters were compatible with iron deficiency anemia. Recheck iron studies and still more compatible with iron deficiency. Ferritin only 20. B12 is normal again above 500 (8) DVT prophylaxis: Code(s): Z29.9 - Encounter for prophylactic measures, unspecified Status: Acute Assessment and Plan: Full-dose Lovenox Subjective Date/time seen: 11/06/19 16:54 Interval history: Date of visit 11/06/19. 69-year-old hypertensive white male with COPD on home O2 admitted with acute on chronic respiratory failure and elevated troponin. No chest pain. According to he had been getting worse last few days. Today feels slightly better with the BiPAP all night Exam Narrative: Exam Narrative: Blood pressure is 160/66 pulse is 86 respirations 26 per minute on the BiPAP at 40% sat 92% with pulse ox Pupils equal reactive to light sclera anicteric BiPAP not removed to examine mouth Neck supple no adenopathy no carotid bruits Lungs prolonged expiratory phase there is some faint crackles throughout and some faint end expiratory wheezes CV slightly tacky no murmurs or gallops Abdomen soft nontender no masses slightly obese Extremities trace edema dorsalis pedis posterior tibial 0 1+ Neuro no focal deficits cranial nerves 2-12 are intact and mentating well to present time oriented x3 Objective Data Vital Signs Vital Signs: Vital Signs - 24 hr 11/05/19 17:11 11/05/19 17:29 11/05/19 18:00 Temperature Pulse Rate 81 77 79 Respiratory Rate 28 H 17 Blood Pre
[2019-11-07] VITALS (34 sets, daily range): BP systolic 122–151; BP diastolic 57–75; PULSE 74–108; RESP 15–28; TEMP 36.7–37; O2SAT 87–98
[2019-11-07] MEDS: ALBUTEROL SULFATE NEB 2.5 MG/0.5 ML INH 5 MG INHALATION ×4 (02:36→19:36)
[2019-11-07] MEDS: IPRATROPIUM BR 0.02% INH SOLN 0.5 MG/2.5 ML VIAL INHALATION ×4 (02:36→19:36)
[2019-11-07 04:32] LABS: Basophils Percent Auto 0.2 % (0.2-1.2); Hemoglobin 11.3 g/dL (14.0-18.0); Immature Granulocyte Absolute 0.07 K/mm3 (0.00-0.031); Immature Granulocyte Percent A 0.6 % (0-0.5); Immature Platelet Fraction Pct 2.3 % (0.9-11.2); Lymphocytes Absolute Auto 0.56 K/mm3 (0.9-3.2); Lymphocytes Percent Auto 4.7 % (18.3-44.2); Mean Corpuscular HGB Conc 30.5 g/dl (32-36); Mean Corpuscular Hemoglobin 31.8 pg (26-34); Mean Corpuscular Volume 104.2 fl (80-100); Mean Platelet Volume 9.3 fl (7.4-10.4); Monocytes Percent Auto 8.3 % (2.6-8.5); Neutrophils Absolute Auto 10.4 K/mm3 (1.3-6.7); Neutrophils Percent Auto 86.2 % (45.5-73.1); Platelet Count Result 163 k/mm3 (150-375); Red Blood Count 3.55 M/mm3 (4.6-6.20); Red Cell Distribution Width 17.1 % (11.5-14.5)
[2019-11-07 04:58] LABS: Alveolar/Arterial O2 Gradient 260.9 mmHg; Carboxyhemoglobin 0.3 % THb (0-2.0); Fractional Inspired Oxygen 60 %; HCO3 ABG 41.6 mEq/l (22.0-26.0); Methemoglobin ABG 0.4 %THb (0-1.5); Oxygen Content ABG 20.2 %vol (16.0-22.0); Oxygen Saturation ABG 96.5 % (95.0-100.0); Oxyhemoglobin 95.5 % THb (90.0-100.0); PO2 ABG 89.8 mmHg (80.0-100.0); Reduced Hemoglobin 3.8 %THb (0-5.0); pH ABG 7.391 (7.350-7.450)
[2019-11-07 04:59] LABS: PCO2 ABG 70.1 mmHg (35.0-45.0)
[2019-11-07 05:00] LABS: Device NON-INVASIVE VENT; Modified Allen's Test Pass; Site Drawn RIGHT RADIAL
[2019-11-07 05:01] LABS: Non-Invasive Expiratory Pressure 8 CMH2O; Non-Invasive Inspiratory Pressure 26 CMH2O; Non-Invasive Vent Rate 20 /MIN
[2019-11-07 05:01] LABS: Blood Urea Nitrogen 27 mg/dL (9-20); Calcium 8.5 mg/dL (8.4-10.2); Carbon Dioxide > 40 mmol/L (22-30); Chloride 88 mmol/L (98-107); Estimated CRCL calculation 77 ml/min; Estimated Glomerular Filt Rate > 60; Glucose 109 mg/dL (75-110); Magnesium 1.8 mg/dL (1.6-2.3); Phosphorus 3.7 mg/dL (2.5-4.5); Potassium 4.3 mmol/L (3.4-5.0); Sodium 135 mmol/L (137-145)
[2019-11-07] MEDS: ENOXAPARIN 100 MG/ML SYRINGE 90 MG SUB-Q (05:47)
[2019-11-07] MEDS: PHENYTOIN SODIUM INJ 100 MG/2 ML VIAL (*BKC) IV PUSH (05:47)
[2019-11-07] MEDS: methylPREDNISolone SOD SUCC 125 MG VIAL 60 MG IV PUSH ×2 (05:47→13:04)
--- NOTE | 2019-11-07 06:32 | P.CDI_ITS ---
CDI Query Clarification Request -COPD documented on problem list -Dr Fisher has documented, continue IV steroids for presumed COPD exac erbation. -No mention of exacerbation of COPD by hospitalist Please clarify if COPD is: * Exacerbated * Stable * Unable to determine
--- NOTE | 2019-11-07 06:32 | WPDCDIQUERY2 ---
CDI Query Clarification Request -COPD documented on problem list -Dr Fisher has documented, continue IV steroids for presumed COPD exacerbation. -No mention of exacerbation of COPD by hospitalist Please clarify if COPD is: Exacerbated Stable Unable to determine
[2019-11-07] MEDS: MORPHINE SULFATE 4 MG/ML INJ 2 MG IV PUSH (07:54)
[2019-11-07] MEDS: FAMOTIDINE 20 MG/2 ML VIAL IV PUSH ×2 (07:54→20:25)
--- NOTE | 2019-11-07 12:32 | WPDINTPN ---
Progress Note: A&P Assessment and Plan (1) Acute and chronic respiratory failure: Qualifiers: Respiratory failure complication: hypercapnia Qualified Code(s): J96.22 - Acute and chronic respiratory failure with hypercapnia Code(s): J96.20 - Acute and chronic respiratory failure, unspecified whether with hypoxia or hypercapnia Status: Acute Assessment and Plan: Patient with acute on chronic respiratory failure with severe hypercapnia and hypoxia . - However patient`s clinical presentation and vital signs not co-relating with ABG values. - Cxr and ABGs reviewed - if patient is able to lay flat will obtain CT chest - continue IV steroids for presumed COPD exacerbation. - influenza panel is negative - echocardiogram shows severe pulmonary hypertension with RVSP of 70 mmHg, LVEF 70%, Grade 1 diastolic dysfunction. - However with significant hypoxia there is concern for opening of shunt from worsening pul HTN from long standing COPD. . Continue supportive care with BIPAP for now . - pulmonology has been consulted (2) COPD (chronic obstructive pulmonary disease): Code(s): J44.9 - Chronic obstructive pulmonary disease, unspecified Status: Acute Assessment and Plan: continue IV steroids , bronchodilators and Levaquin. - Bilateral air entry is much improved - Patient is a current active smoker. (3) Elevated troponin: Code(s): R79.89 - Other specified abnormal findings of blood chemistry Status: Acute Assessment and Plan: Troponin has gone up to 2. There is no EKG change. Could be secondary to the respiratory failure and demand ischemia. No chest pain. - No wall motion abnormalities were seen on the echocardiogram, - stop full-dose Lovenox and start on prophylactic Lovenox dose. (4) Hypertension: Code(s): I10 - Essential (primary) hypertension Status: Acute Assessment and Plan: Restarted lisinopril since potassium is improved - also on hydralazine p.r.n. 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 it to the forensic social worker to decide (6) Seizure disorder: Code(s): G40.909 - Epilepsy, unspecified, not intractable, without status epilepticus Status: Acute Assessment and Plan: Since on continous BIPAP , - Dilantin levels were low, Dilantin dose has been increased - family requested neurology to evaluate the patient which was done. (7) DVT prophylaxis: Code(s): Z29.9 - Encounter for prophylactic measures, unspecified Status: Acute Assessment and Plan: On prophylactic Lovenox does SQ Additional Plan discussed with patient, his and daughter updated with his condition and plan of care. I did updated them with his lab and radiology reports. They aware that a forensic social worker will be evaluating the patient later today Code status: Full code Critical care time spent: 32 minutes Due to a high probability of clinically significant, life threatening deterioration, the patient required my highest level of preparedness to intervene emergently and I personally spent this critical care time directly and personally managing the patient. This critical care time included obtaining a history; examining the patient; pulse oximetry; ordering and review of studies; arranging urgent treatment with development of a management plan; evaluation of patient's response to treatment; frequent reassessment; and discussions with other providers. It was exclusive of separately billable procedures and treating other patients and teaching time. Please see Assessment and Plan section and the rest of the note for further information on patient assessment and treatment Subjective Date/time seen:
[2019-11-07] MEDS: PHENYTOIN SODIUM INJ 100 MG/2 ML VIAL (*BKC) 150 MG IV PUSH ×2 (13:04→23:03)
--- NOTE | 2019-11-07 15:09 | PM.IMPN ---
Progress Note: A&P Assessment and Plan (1) Acute and chronic respiratory failure: Qualifiers: Respiratory failure complication: hypercapnia Qualified Code(s): J96.22 - Acute and chronic respiratory failure with hypercapnia Code(s): J96.20 - Acute and chronic respiratory failure, unspecified whether with hypoxia or hypercapnia Status: Acute Assessment and Plan: Innitial blood gases were not correlating clinically with a pulse ox. Also with the degree of CO2 retention would expect pH to be much lower since when he was here before his pH is were in the 7.3 range when his pCO2 was only in the 70s. Must be getting a mixed arterial venous or venous gas on the blood gas. Chest x-ray reticular nodular could be is chronic bronchiectasis, but could be infectious also. Blood cultures negative still and calcitonin level ordered, emperic levafloxacin Full-dose anticoagulation initially and now back to prophylactic dose, venous Doppler is negative of lower extremities (2) COPD (chronic obstructive pulmonary disease): Code(s): J44.9 - Chronic obstructive pulmonary disease, unspecified Status: Acute Assessment and Plan: Continue updrafts and steroids and initially cover with Levaquin for atypical infection and possible acute acerbation (3) Elevated troponin: Code(s): R79.89 - Other specified abnormal findings of blood chemistry Status: Acute Assessment and Plan: Troponin has gone up to 2. There is no EKG change. Could be secondary to the respiratory failure and demand ischemia. No chest pain. Haacke old no wall motion abnormalities so back to prophylactic dose of Lovenox (4) Hypertension: Code(s): I10 - Essential (primary) hypertension Status: Acute Assessment and Plan: Blood pressure slightly higher and Armaan restarted now with lower potassium (5) Obstructive sleep apnea: Code(s): G47.33 - Obstructive sleep apnea (adult) (pediatric) Status: Acute Assessment and Plan: Continue nocturnal BiPAP (6) Seizure disorder: Code(s): G40.909 - Epilepsy, unspecified, not intractable, without status epilepticus Status: Acute Assessment and Plan: Continue Dilantin therapy and increase dose with low level (7) Anemia: Code(s): D64.9 - Anemia, unspecified Status: Acute Assessment and Plan: Hemoglobin mildly depressed and much is same as it had been before. In May anemia parameters were compatible with iron deficiency anemia. Recheck iron studies and still more compatible with iron deficiency. Ferritin only 20. B12 is normal again above 500 (8) DVT prophylaxis: Code(s): Z29.9 - Encounter for prophylactic measures, unspecified Status: Acute Assessment and Plan: [place] Subjective Date/time seen: 11/07/19 15:09 Interval history: Date of visit 11/07/19. 69-year-old hypertensive white male with COPD on home O2 admitted with acute on chronic respiratory failure and elevated troponin. No chest pain. According to he had been getting worse last few days. feels slightly better each day. Exam Narrative: Exam Narrative: Blood pressure is 136/64 pulse is 80 respirations 26 per minute on the BiPAP at 40% sat 92% with pulse ox Pupils equal reactive to light sclera anicteric BiPAP not removed to examine mouth Neck supple no adenopathy no carotid bruits Lungs prolonged expiratory phase and no wheezes today, moving air better CV slightly tacky no murmurs or gallops Abdomen soft nontender no masses slightly obese Extremities trace edema dorsalis pedis posterior tibial 0 1+ Neuro no focal deficits cranial nerves 2-12 are intact and mentating well, oriented x3 Objective Data Vital Signs Vital Signs: Vital Signs - 24 hr 11/06/19 15:18 11/06/19 16:00 11/06/19 17:00 Temperature 36.8 C Pulse Rate 86 88 90 Respiratory Rate 22 H 21 H 21 H Blood Pressure 166/68 H Pulse Oximetry 95 92
--- NOTE | 2019-11-07 16:48 | PM.PNPUL ---
Progress Note: A&P Assessment and Plan (1) Acute and chronic respiratory failure: Qualifiers: Respiratory failure complication: hypercapnia Qualified Code(s): J96.22 - Acute and chronic respiratory failure with hypercapnia Code(s): J96.20 - Acute and chronic respiratory failure, unspecified whether with hypoxia or hypercapnia Status: Acute Assessment and Plan: He was admitted with extreme elevation of pCO2 @ 102.8 mm Hg ; has been on BiPAP with improvement. His decompensation is a combination of possible pneumonia with increased infiltrates, leukocytosis with left shift, underlying COPD/ bronchiectasis -at home uses a vibratory vest twice a day for 30 minutes; on-going smoking; untreated FERNANDO; he was seen by his pulmonary doctor Nov 03 and was recommended to be admitted, however the patient refused, worsening on Nov 05 with extreme respiratory failure. 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 (2) COPD (chronic obstructive pulmonary disease): Qualifiers: COPD type: unspecified COPD Qualified Code(s): J44.9 - Chronic obstructive pulmonary disease, unspecified Code(s): J44.9 - Chronic obstructive pulmonary disease, unspecified Status: Acute Assessment and Plan: Has COPD and bronchiectasis. Home meds include Symbicort 160/4.5 TWO puffs bid and nebulizer with Duoneb 4 times a day. Will wean steroids as he is not wheezing, has improved gas exchange with normal pH, has (3) Obstructive sleep apnea: Code(s): G47.33 - Obstructive sleep apnea (adult) (pediatric) Status: Acute Assessment and Plan: Jul 22, 2019 CPAP titraiton showed optimal pressure 22/28 with 6 L/min O2 with an option for NPPV such as Trilogy or Astral device. says that he used NPPV for 2 weeks, could not tolerate it, and was on CPAP for the month or so before this admission. (4) Secondary pulmonary hypertension: Status: Acute Assessment and Plan: Severe increase in pulmonary artery pressures due to COPD, hypoxemia, untreated FERNANDO. (5) Tobacco abuse: Code(s): Z72.0 - Tobacco use Status: Acute Assessment and Plan: Has smoked 55 years, and was smoking 5 cigarettes per day before this admission. Smoked up to 2 ppd for about 10 years ~ 65-70 pack year history. Subjective Date/time seen: 11/07/19 16:48 Thank you for the consult. Please see dictation #[id number]. Diagnoses listed. Objective Data Vital Signs Vital Signs: Vital Signs - 24 hr 11/06/19 17:00 11/06/19 18:00 11/06/19 20:00 Temperature 36.9 C Pulse Rate 90 87 83 Respiratory Rate 21 H 20 16 Blood Pressure 161/75 H 154/76 H Pulse Oximetry 93 93 95 11/06/19 20:13 11/06/19 22:00 11/06/19 23:10 Temperature Pulse Rate 84 83 80 Respiratory Rate 20 20 23 H Blood Pressure 156/76 H Pulse Oximetry 93 96 94 11/07/19 00:00 11/07/19 02:00 11/07/19 02:36 Temperature 36.7 C Pulse Rate 85 84 84 Respiratory Rate 21 H 21 H 20 Blood Pressure 151/69 H 142/71 H Pulse Oximetry 94 96 11/07/19 02:43 11/07/19 04:00 11/07/19 05:07 Temperature 36.7 C Pulse Rate 86 82 82 Respiratory Rate 21 H 20 20 Blood Pressure 136/72 Pulse Oximetry 95 95 11/07/19 06:00 11/07/19 07:52 11/07/19 07:53 Temperature Pulse Rate 81 78 78 Respiratory Rate 20 21 H 21 H Blood Pressure 147/73 H Pulse Oximetry 97 97 11/07/19 07:57 11/07/19 08:00 11/07/19 08:01 Temperature 37.0 C Pulse Rate 91 83 88 Respiratory Rate 19 23 H
--- NOTE | 2019-11-07 20:36 | CONS_ITS ---
DATE OF CONSULTATION: 11/05/2019 HISTORY OF PRESENT ILLNESS: A 69-year-old right-handed male has been admitted to [facility] for the complaints of respiratory difficulties for which the patient has been on multiple BiPAP and ventilator adjustment in addition to the history of acute on chronic respiratory failure, COPD, elevated troponin, essential hypertension, obstructive sleep apnea, and seizure disorder. As per the information available from the patient's , the patient has been taking the Dilantin for long duration, though they were out of this fate. Most recently, he is taking Dilantin 400 mg per day. In addition, she was concerned about the possibility of the Parkinson disease because of his shaking. PHYSICAL EXAMINATION: GENERAL: He was awake, alert, cooperative, in no obvious acute distress. Throughout the examination when he was resting and when we were not paying attention to him, there was no evidence of any resting tremors. HEENT: Head was normocephalic with no cranial bruit. Ear, nose, throat exam was normal. NECK: Supple with no cervical bruit. No thyromegaly. No lymphadenopathy. HEART: Regular. LUNGS: Clear. ABDOMEN: Soft, and protuberant. NEUROLOGICAL: He was awake, alert, was able to follow the instructions. Pupils were round and regular. Razo of vision full. Extraocular full. Face symmetrical. Tongue midline. Motor examination revealed him to have symmetrical strength in upper and lower extremities. Plantars were downgoing. There was no evidence of gross cerebellar deficit on fnieck-ow-dcbz-to-finger. IMPRESSION: Ongoing history of seizure disorder in addition to the concern about the possibly Parkinson disease. At this stage, the patient has had the venous Doppler study, which is normal. Doppler echocardiogram, which has mild increased left ventricular wall thickness and motion abnormality, global strain and mild valvular regurgitation. I will obtain the CT scan of the head or else MRI of the brain once it came out of the ICU. In the meantime, I have advised the that we are not dealing with Parkinson disease. For the diagnosis of seizure disorder, we will follow him. VIKAS GARLAND M.D. [employer]ATER STEEL HEATER D I MT: Emily
[2019-11-07] MEDS: methylPREDNISolone SOD SUCC 40 MG VIAL IV PUSH (20:44)
[2019-11-08] VITALS (28 sets, daily range): BP systolic 129–153; BP diastolic 54–84; PULSE 65–97; RESP 16–26; TEMP 36.1–36.7; O2SAT 92–100
--- NOTE | 2019-11-08 00:01 | CONS_ITS ---
DATE OF CONSULTATION: 11/07/2019 REASON FOR THE CONSULTATION: Dr. Villafuerte consulted me to see this patient for [id number] respiratory failure. HISTORY OF PRESENT ILLNESS: This is a pleasant 69-year-old gentleman with multiple longstanding pulmonary problems. His provides much of the history as the patient is wearing high-flow cannula with moderate shortness of breath. He was seen by his pulmonary doctor, Dr. Wang on November 03 and was sick enough to be admitted to the hospital at [facility] in [place], [place]. The patient did not want to be admitted, went home and continued to deteriorate. He was admitted here at [facility] on November 05 with a pCO2 of 103 with extreme shortness of breath. He was placed on BiPAP at 22/18 with 6 L/minute. His blood gases have improved with pCO2 decreasing down into the 80 and in the 70 range. Currently, he is on a high-flow nasal cannula with oxygen at 55 L a minute and 50% oxygen. His saturation is now 96% and we are adjusting his high-flow settings. History from the indicates that he has had a long history of COPD. He has over a [id number]-larg history of smoking, at 1 point smoked 2 packs a day for 10 years. He had has a history of bronchiectasis, which was made about a year ago. The patient is using an Acapella valve at home and a vibratory vest for 30 minutes twice a day. He is also on Symbicort and DuoNeb 4 times a day. He has had 3 episodes of pneumonia since moving to [place] from [place] 2 years ago. He was last admitted at [facility] from July 01 through the and was seen on June 04. The patient has a diagnosis of severe obstructive sleep apnea syndrome and has had recent sleep studies. His most recent one was on July 22. He had a difficult CPAP titration. His final settings showed a pressure of 22/18 with 6 L of oxygen or his recommended use of a noninvasive positive-pressure device. His says that he did get the noninvasive positive pressure device, but he could only use it for 2 weeks because he could not tolerate it. His physician then switched him over to CPAP not BiPAP. The patient has been on CPAP for a month or more at home. His says that he has not had leg swelling or chest pain. His troponin has been elevated this admission. He did not have EKG change. ALLERGIES: NO KNOWN DRUG ALLERGIES. MEDICATIONS: Current hospital medications: 1. Albuterol nebulized 5 mg q.6 hours. 2. Enoxaparin 40 mg subcu daily. 3. Pepcid 20 mg IV q.12 hours. 4. Hydralazine 10 mg IV p.r.n. elevated blood pressure over 160 every 4 hours. 5. Ipratropium 0.02% 0.5 mg nebulized q.6 hours. 6. Levaquin 750 mg IV daily. 7. Lisinopril 10 mg p.o. daily. 8. Methylprednisolone 60 mg IV q.8 hours. 9. Morphine sulfate 2 mg IV q.4 hours p.r.n. severe pain. 10. Phenytoin 150 mg IV q.8 hours for seizure disorder. His home medication list does not show the Symbicort or the DuoNeb, which his says he takes. PAST MEDICAL HISTORY: 1. COPD with bronchiectasis. 2. Home oxygen use for over 2 years. 3. Recurrent pneumonia 3 times in the last 2 years. 4. Seizure disorder, which started 18 years ago. 5. Hypertension. 6. Severe obstructive sleep apnea syndrome. Most recent study was on July 22, 2019, at [facility] with an optimal pressure of 12/18 and 6 L of oxygen. 7. Pulmonary hypertension. 8. Peripheral vascular disease with history of bilateral iliac artery stents and an endovascular AAA stent. 9. Renal artery stenosis. SURGICAL HISTORY: As listed above. SOCIAL HISTORY: , is at the bedside. The patient has 2 biologic daughters. He has smoked since age of 14, 55 years total, longest quit attempt was 6 months. He also has a history of prostate cancer and has been treated with Linsey
[2019-11-08] MEDS: IPRATROPIUM BR 0.02% INH SOLN 0.5 MG/2.5 ML VIAL INHALATION ×5 (02:12→20:01)
[2019-11-08] MEDS: ALBUTEROL SULFATE NEB 2.5 MG/0.5 ML INH 5 MG INHALATION ×5 (02:12→20:02)
[2019-11-08 04:30] LABS: Alveolar/Arterial O2 Gradient 193.8 mmHg; Base Excess ABG 13.2 mEq/l (+/-2.0); Carboxyhemoglobin 0.5 % THb (0-2.0); Fractional Inspired Oxygen 50 %; HCO3 ABG 42.2 mEq/l (22.0-26.0); Methemoglobin ABG 0.4 %THb (0-1.5); Oxygen Content ABG 17.6 %vol (16.0-22.0); Oxygen Saturation ABG 94.2 % (95.0-100.0); Oxyhemoglobin 93.3 % THb (90.0-100.0); PO2 ABG 76.5 mmHg (80.0-100.0); PO2 FiO2 Ratio Arterial Blood 1.53 %; Reduced Hemoglobin 5.8 %THb (0-5.0); Total Hemoglobin 13.4 g/dL (12.0-18.0); pH ABG 7.359 (7.350-7.450)
[2019-11-08 04:32] LABS: Device NON-INVASIVE VENT; Modified Allen's Test Pass; Non-Invasive Expiratory Pressure 8 CMH2O; Non-Invasive Inspiratory Pressure 26 CMH2O; Non-Invasive Vent Rate 20 /MIN; PCO2 ABG 76.6 mmHg (35.0-45.0); Site Drawn LEFT RADIAL
[2019-11-08 04:55] LABS: Basophils Percent Auto 0.2 % (0.2-1.2); Hemoglobin 11.5 g/dL (14.0-18.0); Immature Granulocyte Absolute 0.04 K/mm3 (0.00-0.031); Immature Granulocyte Percent A 0.5 % (0-0.5); Lymphocytes Absolute Auto 0.65 K/mm3 (0.9-3.2); Lymphocytes Percent Auto 7.5 % (18.3-44.2); Mean Corpuscular HGB Conc 30.3 g/dl (32-36); Mean Corpuscular Hemoglobin 31.8 pg (26-34); Mean Platelet Volume 9.7 fl (7.4-10.4); Monocytes Absolute Auto 0.8 K/mm3 (0.1-0.6); Neutrophils Absolute Auto 7.2 K/mm3 (1.3-6.7); Neutrophils Percent Auto 82.8 % (45.5-73.1); Platelet Count Result 163 k/mm3 (150-375); Red Blood Count 3.62 M/mm3 (4.6-6.20); Red Cell Distribution Width 16.8 % (11.5-14.5); White Blood Count 8.7 K/mm3 (4.5-10.0)
[2019-11-08 05:18] LABS: Alanine Aminotransferase 14 U/L (4-50); Albumin Level 3.3 g/dL (3.5-5.1); Alkaline Phosphatase 86 U/L (38-126); Aspartate Amino Transferase 23 U/L (17-59); Bilirubin,Total 0.2 mg/dL (0.2-1.3); Blood Urea Nitrogen 25 mg/dL (9-20); Calcium 8.8 mg/dL (8.4-10.2); Carbon Dioxide > 40 mmol/L (22-30); Chloride 91 mmol/L (98-107); Estimated CRCL calculation 86 ml/min; Estimated Glomerular Filt Rate > 60; Glucose 95 mg/dL (75-110); Phosphorus 4.8 mg/dL (2.5-4.5); Potassium 4.4 mmol/L (3.4-5.0); Sodium 137 mmol/L (137-145)
[2019-11-08] MEDS: PHENYTOIN SODIUM INJ 100 MG/2 ML VIAL (*BKC) 150 MG IV PUSH ×3 (05:19→20:54)
[2019-11-08] MEDS: methylPREDNISolone SOD SUCC 40 MG VIAL IV PUSH ×2 (08:11→20:54)
[2019-11-08] MEDS: FAMOTIDINE 20 MG/2 ML VIAL IV PUSH ×2 (08:11→20:53)
[2019-11-08] MEDS: lisinopriL 10 MG TABLET PO (08:11)
[2019-11-08] MEDS: ENOXAPARIN 40 MG/0.4 ML SYRINGE SUB-Q (11:44)
--- NOTE | 2019-11-08 13:01 | PC.NURSE ---
Pt transferred to room 214 on tele and O2, bedside report given to ZEESHAN Acevedo. Belongings sent with pt.
--- NOTE | 2019-11-08 13:02 | WPDINTPN ---
Progress Note: A&P Assessment and Plan (1) Acute and chronic respiratory failure: Qualifiers: Respiratory failure complication: hypercapnia Qualified Code(s): J96.22 - Acute and chronic respiratory failure with hypercapnia Code(s): J96.20 - Acute and chronic respiratory failure, unspecified whether with hypoxia or hypercapnia Status: Acute Assessment and Plan: Patient with acute on chronic respiratory failure with severe hypercapnia and hypoxia . - Cxr and ABGs reviewed - if patient is able to lay flat will obtain CT chest - continue IV steroids for presumed COPD exacerbation. - influenza panel is negative - echocardiogram shows severe pulmonary hypertension with RVSP of 70 mmHg, LVEF 70%, Grade 1 diastolic dysfunction. - continue BiPAP at night and during the day when sleeping - appreciate pulmonology evaluation recommendation (2) COPD (chronic obstructive pulmonary disease): Qualifiers: COPD type: unspecified COPD Qualified Code(s): J44.9 - Chronic obstructive pulmonary disease, unspecified Code(s): J44.9 - Chronic obstructive pulmonary disease, unspecified Status: Acute Assessment and Plan: continue IV steroids , bronchodilators and Levaquin. - Bilateral air entry is much improved - Patient is a current active smoker. counseled patient on cessation of smoking to which the states that he will quit smoking from here onwards (3) Elevated troponin: Code(s): R79.89 - Other specified abnormal findings of blood chemistry Status: Acute Assessment and Plan: Troponin has gone up to 2. There is no EKG change. Could be secondary to the respiratory failure and demand ischemia. No chest pain. - No wall motion abnormalities were seen on the echocardiogram, - full-dose Lovenox will discontinued on 11/07/2019 and started on prophylactic Lovenox dose. (4) Hypertension: Code(s): I10 - Essential (primary) hypertension Status: Acute Assessment and Plan: continue lisinopril - also on hydralazine p.r.n. 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 I counseled on tobacco cessation and also wearing his BiPAP at night and during the day when sleeping Code status: Full code Critical care time spent: 31 minutes Due to a high probability of clinically significant, life threatening deterioration, the patient required my highest level of preparedness to intervene emergently and I personally spent this critical care time directly and personally managing the patient. This critical care time included obtaining a history; examining the patient; pulse oximetry; ordering and review of studies; arranging urgent treatment with development of a management plan; evaluation of patient's response to treatment; frequent reassessment; and discussions with other providers. It was exclusive of separately billable procedures and treating other patients and teaching time. Please see Assessment and Plan section and the rest of the note for further information on patient assessment and daily
[2019-11-08 14:10] LABS: Procalcitonin 0.33 ng/mL (<0.10)
--- NOTE | 2019-11-08 14:59 | PM.PNPUL ---
Progress Note: A&P Assessment and Plan (1) Acute and chronic respiratory failure: Qualifiers: Respiratory failure complication: hypoxia and hypercapnia Qualified Code(s): J96.21 - Acute and chronic respiratory failure with hypoxia; J96.22 - Acute and chronic respiratory failure with hypercapnia Code(s): J96.20 - Acute and chronic respiratory failure, unspecified whether with hypoxia or hypercapnia Status: Acute Assessment and Plan: He was admitted with extreme elevation of pCO2 @ 102.8 mm Hg ; has been on BiPAP with improvement since admission to the hospital. His decompensation is a combination of possible pneumonia with increased infiltrates, leukocytosis with left shift, underlying COPD/ bronchiectasis -at home uses a vibratory vest twice a day for 30 minutes; on-going smoking; untreated FERNANDO; he was seen by his pulmonary doctor Nov 03 and was recommended to be admitted, however the patient refused, worsening on Nov 05 with extreme respiratory failure. 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 (2) COPD (chronic obstructive pulmonary disease): Qualifiers: COPD type: unspecified COPD Qualified Code(s): J44.9 - Chronic obstructive pulmonary disease, unspecified Code(s): J44.9 - Chronic obstructive pulmonary disease, unspecified Status: Acute Assessment and Plan: Has COPD and bronchiectasis. Home meds include Symbicort 160/4.5 TWO puffs bid and nebulizer with Duoneb 4 times a day. Will wean steroids as he is not wheezing, has improved gas exchange with normal pH. (3) Obstructive sleep apnea: Code(s): G47.33 - Obstructive sleep apnea (adult) (pediatric) Status: Acute Assessment and Plan: Jul 22, 2019 CPAP titraiton showed optimal pressure 22/28 with 6 L/min O2 with an option for NPPV such as Trilogy or Astral device. says that he used NPPV for 2 weeks, could not tolerate it, and was on CPAP for the month or so before this admission. (4) Secondary pulmonary hypertension: Status: Acute Assessment and Plan: Severe increase in pulmonary artery pressures due to COPD, hypoxemia, untreated FERNANDO. This hsould improve with treatmentof FERNANDO and stopping smoking. (5) Tobacco abuse: Code(s): Z72.0 - Tobacco use Status: Acute Assessment and Plan: Has smoked 55 years, and was smoking 5 cigarettes per day before this admission. Smoked up to 2 ppd for about 10 years ~ 65-70 pack year history. Subjective Date/time seen: 11/08/19 14:59 This 69 yo man is seen in follow up for acute on chronic reps failure, COPD, tobacco; moved out of ICU . His is at the bedside. He is feeling less short of breath. Still weraing high flow nasal cannula at 45% and 50 L/minute. Review of Systems Review of Systems: All systems reviewed & are unremarkable except as noted in HPI and below Exam Narrative: Exam Narrative: 99 Const: General: cooperative and comfortable HENMT: Face and sinus: normal facial exam Mouth: Yes Normal oral and palatal mucosa present Eyes: General: appearance normal, both eyes and all related structures Neck: Neck: no lymphadenopathy Resp: Effort & Inspection: normal respiratory effort Auscultation: diminished lung sounds (overall better exam, not labored) Cardio: Rate: regular rate Rhythm: regular rhythm Heart sounds: S1 normal heart sound present and S2 normal heart sound present GI: Auscultation: normal bowel sounds Neuro: Speech: normal speech Extre
[2019-11-08 15:09] LABS: Pneumococcal Antigen Urine Not Detected (Not Detected)
--- NOTE | 2019-11-08 15:17 | PM.IMPN ---
Progress Note: A&P Assessment and Plan (1) Acute and chronic respiratory failure: Qualifiers: Respiratory failure complication: hypercapnia Qualified Code(s): J96.22 - Acute and chronic respiratory failure with hypercapnia Code(s): J96.20 - Acute and chronic respiratory failure, unspecified whether with hypoxia or hypercapnia Status: Acute Assessment and Plan: Innitial blood gases were not correlating clinically with a pulse ox. Also with the degree of CO2 retention would expect pH to be much lower since when he was here before his pH is were in the 7.3 range when his pCO2 was only in the 70s. Must be getting a mixed arterial venous or venous gas on the blood gas. Chest x-ray reticular nodular could be is chronic bronchiectasis, but could be infectious also. Blood cultures negative still and calcitonin level ordered, emperic levafloxacin Full-dose anticoagulation initially and now back to prophylactic dose, venous Doppler is negative of lower extremities (2) COPD (chronic obstructive pulmonary disease): Qualifiers: COPD type: unspecified COPD Qualified Code(s): J44.9 - Chronic obstructive pulmonary disease, unspecified Code(s): J44.9 - Chronic obstructive pulmonary disease, unspecified Status: Acute Assessment and Plan: Continue updrafts and steroids and initially cover with Levaquin for atypical infection and possible acute acerbation (3) Elevated troponin: Code(s): R79.89 - Other specified abnormal findings of blood chemistry Status: Acute Assessment and Plan: Troponin has gone up to 2. There is no EKG change. Could be secondary to the respiratory failure and demand ischemia. No chest pain. Haacke old no wall motion abnormalities so back to prophylactic dose of Lovenox 11/07 (4) Hypertension: Code(s): I10 - Essential (primary) hypertension Status: Acute Assessment and Plan: Blood pressure slightly higher and Armaan restarted now with lower potassium and better bp today (5) Obstructive sleep apnea: Code(s): G47.33 - Obstructive sleep apnea (adult) (pediatric) Status: Acute Assessment and Plan: Continue nocturnal BiPAP (6) Seizure disorder: Code(s): G40.909 - Epilepsy, unspecified, not intractable, without status epilepticus Status: Acute Assessment and Plan: Continue Dilantin therapy and increased dose and recheck level am (7) Anemia: Code(s): D64.9 - Anemia, unspecified Status: Acute Assessment and Plan: Hemoglobin mildly depressed and much is same as it had been before. In May anemia parameters were compatible with iron deficiency anemia. Recheck iron studies and still more compatible with iron deficiency. Ferritin only 20. B12 is normal again above 500 (8) DVT prophylaxis: Code(s): Z29.9 - Encounter for prophylactic measures, unspecified Status: Acute Assessment and Plan: Lovenox Subjective Date/time seen: 11/08/19 15:17 Interval history: Date of visit 11/08/19. 69-year-old hypertensive white male with COPD on home O2 admitted with acute on chronic respiratory failure and elevated troponin. No chest pain. According to he had been getting worse last few days prior to admission feels slightly better each day. off bipap most of day 11/07 Exam Narrative: Exam Narrative: Blood pressure is 140/64 pulse is 86 respirations 18 per minute on high flow 02 with 95% Pupils equal reactive to light sclera anicteric BiPAP not removed to examine mouth Neck supple no adenopathy no carotid bruits Lungs prolonged expiratory phase and no wheezes today, moving air better CV slightly tacky no murmurs or gallops Abdomen soft nontender no masses slightly obese Extremities trace edema dorsalis pedis posterior tibial 0 1+ Neuro no focal deficits cranial nerves 2-12 are intact and mentating well, oriented x3 Objective Data Vital Signs Vital Signs: Vital Si
[2019-11-08 16:25] LABS: Legionella pneumophila Ag Ur Not Detected (Not Detected)
[2019-11-09] VITALS (18 sets, daily range): BP systolic 126–149; BP diastolic 50–61; PULSE 68–84; RESP 16–26; TEMP 36.3–36.9; O2SAT 92–99
[2019-11-09] MEDS: ALBUTEROL SULFATE NEB 2.5 MG/0.5 ML INH 5 MG INHALATION ×4 (01:52→21:58)
[2019-11-09] MEDS: IPRATROPIUM BR 0.02% INH SOLN 0.5 MG/2.5 ML VIAL INHALATION ×4 (01:52→21:58)
[2019-11-09 04:39] LABS: Basophils Percent Auto 0.3 % (0.2-1.2); Eosinophils Absolute Auto 0.1 K/mm3 (0-0.3); Hematocrit 38.3 % (42.0-52.0); Hemoglobin 11.4 g/dL (14.0-18.0); Immature Granulocyte Absolute 0.03 K/mm3 (0.00-0.031); Immature Granulocyte Percent A 0.4 % (0-0.5); Lymphocytes Absolute Auto 0.65 K/mm3 (0.9-3.2); Lymphocytes Percent Auto 9.1 % (18.3-44.2); Mean Corpuscular HGB Conc 29.8 g/dl (32-36); Mean Corpuscular Hemoglobin 31.5 pg (26-34); Mean Corpuscular Volume 105.8 fl (80-100); Mean Platelet Volume 9.3 fl (7.4-10.4); Monocytes Absolute Auto 0.7 K/mm3 (0.1-0.6); Monocytes Percent Auto 9.1 % (2.6-8.5); Neutrophils Absolute Auto 5.8 K/mm3 (1.3-6.7); Neutrophils Percent Auto 80.1 % (45.5-73.1); Platelet Count Result 150 k/mm3 (150-375); Red Blood Count 3.62 M/mm3 (4.6-6.20); Red Cell Distribution Width 16.4 % (11.5-14.5); White Blood Count 7.2 K/mm3 (4.5-10.0)
[2019-11-09 04:59] LABS: Blood Urea Nitrogen 22 mg/dL (9-20); Calcium 8.6 mg/dL (8.4-10.2); Carbon Dioxide > 40 mmol/L (22-30); Chloride 91 mmol/L (98-107); Estimated CRCL calculation 77 ml/min; Estimated Glomerular Filt Rate > 60; Glucose 132 mg/dL (75-110); Phosphorus 4.5 mg/dL (2.5-4.5); Potassium 4.6 mmol/L (3.4-5.0); Sodium 137 mmol/L (137-145)
[2019-11-09 05:10] LABS: Platelet Estimate Adequate (Adequate)
[2019-11-09 05:11] LABS: Macrocytosis 1+ (NORMAL); Microcytosis 1+ (NORMAL)
[2019-11-09] MEDS: PHENYTOIN SODIUM INJ 100 MG/2 ML VIAL (*BKC) 150 MG IV PUSH (06:32)
[2019-11-09 08:46] LABS: Phenytoin Dilantin < 3 ug/mL (10-20)
[2019-11-09] MEDS: ENOXAPARIN 40 MG/0.4 ML SYRINGE SUB-Q (09:21)
[2019-11-09] MEDS: methylPREDNISolone SOD SUCC 40 MG VIAL IV PUSH ×2 (09:21→21:05)
[2019-11-09] MEDS: lisinopriL 10 MG TABLET PO (09:21)
--- NOTE | 2019-11-09 10:50 | PC.NURSE ---
This patient, Quentin Zavaleta, was received from [ ] on 11/09/19 at 1050. Personal belongings list checked and signed. Patient/family oriented to unit policies and routines
--- NOTE | 2019-11-09 10:53 | PC.NURSE ---
This patient, Quentin Zavaleta, was transferred to [ [id number]] on 11/09/19 at 1053. Personal belongings sent with patient. Belongings list checked and signed with receiving [ ]. Report given to [ rocky fernandez]. Appropriate documentation sent with patient.
[2019-11-09] MEDS: PHENYTOIN SODIUM 100 MG CAP 200 MG PO ×2 (15:42→21:05)
--- NOTE | 2019-11-09 16:43 | PM.IMPN ---
Progress Note: A&P Assessment and Plan (1) Acute and chronic respiratory failure: Qualifiers: Respiratory failure complication: hypercapnia Qualified Code(s): J96.22 - Acute and chronic respiratory failure with hypercapnia Code(s): J96.20 - Acute and chronic respiratory failure, unspecified whether with hypoxia or hypercapnia Status: Acute Assessment and Plan: Innitial blood gases were not correlating clinically with a pulse ox. Also with the degree of CO2 retention would expect pH to be much lower since when he was here before his pH is were in the 7.3 range when his pCO2 was only in the 70s. Must have been getting a mixed arterial venous or venous gas on the blood gas. Chest x-ray reticular nodular could be is chronic bronchiectasis, but could be infectious also. Blood cultures negative still and calcitonin level ordered, emperic levafloxacin( D#5) Full-dose anticoagulation initially and now back to prophylactic dose, venous Doppler is negative of lower extremities (2) COPD (chronic obstructive pulmonary disease): Qualifiers: COPD type: unspecified COPD Qualified Code(s): J44.9 - Chronic obstructive pulmonary disease, unspecified Code(s): J44.9 - Chronic obstructive pulmonary disease, unspecified Status: Acute Assessment and Plan: Continue updrafts and steroids with further taper to po 2/3 and cover with Levaquin for atypical infection and possible acute acerbation (3) Elevated troponin: Code(s): R79.89 - Other specified abnormal findings of blood chemistry Status: Acute Assessment and Plan: Troponin went up to 2. There is no EKG change. Could be secondary to the respiratory failure and demand ischemia. No chest pain. Had old no wall motion abnormalities so back to prophylactic dose of Lovenox 11/07 (4) Hypertension: Code(s): I10 - Essential (primary) hypertension Status: Acute Assessment and Plan: Blood pressure slightly higher and Armaan restarted now with lower potassium and better bp today (5) Obstructive sleep apnea: Code(s): G47.33 - Obstructive sleep apnea (adult) (pediatric) Status: Acute Assessment and Plan: Continue nocturnal BiPAP (6) Seizure disorder: Code(s): G40.909 - Epilepsy, unspecified, not intractable, without status epilepticus Status: Acute Assessment and Plan: Continue Dilantin therapy and increased dose 200 tid with level still low today after 450 qd (7) Anemia: Code(s): D64.9 - Anemia, unspecified Status: Acute Assessment and Plan: Hemoglobin mildly depressed and much is same as it had been before. In May anemia parameters were compatible with iron deficiency anemia. Recheck iron studies and still more compatible with iron deficiency. Ferritin only 20. B12 is normal again above 500 (8) DVT prophylaxis: Code(s): Z29.9 - Encounter for prophylactic measures, unspecified Status: Acute Assessment and Plan: Lovenox Subjective Date/time seen: 11/09/19 16:43 Interval history: Date of visit 11/09/19. 69-year-old hypertensive white male with COPD on home O2 admitted with acute on chronic respiratory failure and elevated troponin. No chest pain. According to he had been getting worse last few days prior to admission feels slightly better each day. off bipap most of day since 11/07 no cough per say Exam Narrative: Exam Narrative: Blood pressure is 146/60 pulse is 68 respirations 18 per minute on high flow 02 with 99% Pupils equal reactive to light sclera anicteric Neck supple no adenopathy no carotid bruits Lungs prolonged expiratory phase and no wheezes today, moving air better CV slightly tacky no murmurs or gallops Abdomen soft nontender no masses slightly obese Extremities trace edema dorsalis pedis posterior tibial 0 1+ Neuro no focal deficits cranial nerves 2-12 are intact and mentating well, oriented x3 Objective
--- NOTE | 2019-11-09 19:36 | PM.PNPUL ---
Progress Note: A&P Assessment and Plan (1) Acute and chronic respiratory failure: Qualifiers: Respiratory failure complication: hypoxia and hypercapnia Qualified Code(s): J96.21 - Acute and chronic respiratory failure with hypoxia; J96.22 - Acute and chronic respiratory failure with hypercapnia Code(s): J96.20 - Acute and chronic respiratory failure, unspecified whether with hypoxia or hypercapnia Status: Acute Assessment and Plan: He was admitted with extreme elevation of pCO2 at 102.8 mm Hg ; was on BiPAP with improvement then switched to high flow nasal cannula, with decreased O2 requirement. His decompensation is a combination of possible pneumonia with increased infiltrates, leukocytosis with left shift, underlying COPD/ bronchiectasis -at home uses a vibratory vest twice a day for 30 minutes; on-going smoking; untreated FERNANDO; he was seen by his pulmonary doctor Dr. Wang Nov 03 and was recommended to be admitted at [facility] in [place], however the patient refused, worsened Nov 05 with extreme respiratory failure. 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 (2) COPD (chronic obstructive pulmonary disease): Qualifiers: COPD type: unspecified COPD Qualified Code(s): J44.9 - Chronic obstructive pulmonary disease, unspecified Code(s): J44.9 - Chronic obstructive pulmonary disease, unspecified Status: Acute Assessment and Plan: Has COPD and bronchiectasis. Home meds include Symbicort 160/4.5 TWO puffs bid and nebulizer with Duoneb 4 times a day. Will wean steroids as he is not wheezing, has improved gas exchange with normal pH. Now on Iv and can transition to oral prednisone. (3) Obstructive sleep apnea: Code(s): G47.33 - Obstructive sleep apnea (adult) (pediatric) Status: Acute Assessment and Plan: Jul 22, 2019 CPAP titration showed optimal pressure 22/28 with 6 L/min O2 with an option for NPPV such as Trilogy or Astral device. says that he used NPPV for 2 weeks, could not tolerate it, and was on CPAP for the month or so before this admission. CPAP would not be expected to control his CO2 as well as Bipap or NPPV. This may have cotributed to his deterioration. (4) Secondary pulmonary hypertension: Status: Acute Assessment and Plan: Severe increase in pulmonary artery pressures due to COPD, hypoxemia, untreated FERNANDO. This hsould improve with treatmentof FERNANDO and stopping smoking. (5) Tobacco abuse: Code(s): Z72.0 - Tobacco use Status: Acute Assessment and Plan: Has smoked 55 years, and was smoking 5 cigarettes per day before this admission. Smoked up to 2 ppd for about 10 years ~ 65-70 pack year history. (6) Bronchiectasis: Code(s): J47.9 - Bronchiectasis, uncomplicated Status: Acute Assessment and Plan: He uses a vibratory vest at home; will arrange to have respiratory therapy see if we can arrange this while he is here, 30 min twice a day. Subjective Date/time seen: 11/09/19 19:36 This 69 yo man is seen in follow up for acute on chronic respiratory failure, COPD, tobacco; now in Room 324, feeling better, still has moist cough with little sputum expectorated. He is on lower settings on high flow cannula, 45% and 50 L/minute. He is dumping bicarbonate on his own, HCO3 was 56 and is now 42 so he is handling his post hypercapnic alkalosis without extra help from acetazolam
[2019-11-10] VITALS (14 sets, daily range): BP systolic 123–140; BP diastolic 49–68; PULSE 66–88; RESP 16–20; TEMP 36.6–36.8; O2SAT 86–99
[2019-11-10] MEDS: ALBUTEROL SULFATE NEB 2.5 MG/0.5 ML INH 5 MG INHALATION ×4 (01:17→22:07)
[2019-11-10] MEDS: IPRATROPIUM BR 0.02% INH SOLN 0.5 MG/2.5 ML VIAL INHALATION ×4 (01:17→22:07)
[2019-11-10] MEDS: lisinopriL 10 MG TABLET PO (08:58)
[2019-11-10] MEDS: ENOXAPARIN 40 MG/0.4 ML SYRINGE SUB-Q (08:58)
[2019-11-10] MEDS: PHENYTOIN SODIUM 100 MG CAP 200 MG PO ×3 (08:58→21:26)
[2019-11-10] MEDS: predniSONE 40 MG, predniSONE 10 MG 50 MG PO (09:00)
--- NOTE | 2019-11-10 17:57 | PM.IMPN ---
Progress Note: A&P Assessment and Plan (1) Acute and chronic respiratory failure: Qualifiers: Respiratory failure complication: hypoxia and hypercapnia Qualified Code(s): J96.21 - Acute and chronic respiratory failure with hypoxia; J96.22 - Acute and chronic respiratory failure with hypercapnia Code(s): J96.20 - Acute and chronic respiratory failure, unspecified whether with hypoxia or hypercapnia Status: Acute Assessment and Plan: Innitial blood gases were not correlating clinically with a pulse ox. Also with the degree of CO2 retention would expect pH to be much lower since when he was here before his pH is were in the 7.3 range when his pCO2 was only in the 70s. Must have been getting a mixed arterial venous or venous gas on the blood gas. Chest x-ray reticular nodular could be is chronic bronchiectasis, but could be infectious also. Blood cultures negative still and calcitonin level ordered, emperic levafloxacin( D#6) Full-dose anticoagulation initially and now back to prophylactic dose, venous Doppler is negative of lower extremities (2) COPD (chronic obstructive pulmonary disease): Qualifiers: COPD type: unspecified COPD Qualified Code(s): J44.9 - Chronic obstructive pulmonary disease, unspecified Code(s): J44.9 - Chronic obstructive pulmonary disease, unspecified Status: Acute Assessment and Plan: Continue updrafts and steroids with taper to po today and cover with Levaquin for atypical infection and possible acute acerbation urine antigens negative too (3) Elevated troponin: Code(s): R79.89 - Other specified abnormal findings of blood chemistry Status: Acute Assessment and Plan: Troponin went up to 2. There were no EKG change. Could be secondary to the respiratory failure and demand ischemia. No chest pain. Had no wall motion abnormalities so back to prophylactic dose of Lovenox 11/07 (4) Hypertension: Code(s): I10 - Essential (primary) hypertension Status: Acute Assessment and Plan: Blood pressure slightly higher and Armaan restarted now with lower potassium and better bp (5) Obstructive sleep apnea: Code(s): G47.33 - Obstructive sleep apnea (adult) (pediatric) Status: Acute Assessment and Plan: Continue nocturnal BiPAP (6) Seizure disorder: Code(s): G40.909 - Epilepsy, unspecified, not intractable, without status epilepticus Status: Acute Assessment and Plan: Continue Dilantin therapy and increased dose 200 tid 11/09 with level still low after 450 qd (7) Anemia: Code(s): D64.9 - Anemia, unspecified Status: Acute Assessment and Plan: Hemoglobin mildly depressed and much is same as it had been before. In May anemia parameters were compatible with iron deficiency anemia. Recheck iron studies and still more compatible with iron deficiency. Ferritin only 20. B12 is normal again above 500 (8) DVT prophylaxis: Code(s): Z29.9 - Encounter for prophylactic measures, unspecified Status: Acute Assessment and Plan: Lovenox Subjective Date/time seen: 11/10/19 17:57 Interval history: Date of visit 11/10/19. 69-year-old hypertensive white male with COPD on home O2 admitted with acute on chronic respiratory failure and elevated troponin. No chest pain. According to he had been getting worse last few days prior to admission feels slightly better each day. off bipap most of day since 11/07 no cough per say.and still on high flow. Feel better up with PT and wants to go home Exam Narrative: Exam Narrative: Blood pressure is 140/68 pulse is 76 respirations 18 per minute on high flow 02 with 92% Pupils equal reactive to light sclera anicteric Neck supple no adenopathy no carotid bruits Lungs prolonged expiratory phase and no wheezes today, moving air better today CV no murmurs or gallops Abdomen soft nontender no masses slightly obese Extremitie
[2019-11-10] MEDS: PANTOPRAZOLE 40 MG TABLET PO (18:22)
--- NOTE | 2019-11-10 19:06 | PM.PNPUL ---
Progress Note: A&P Assessment and Plan (1) Acute and chronic respiratory failure: Qualifiers: Respiratory failure complication: hypoxia and hypercapnia Qualified Code(s): J96.21 - Acute and chronic respiratory failure with hypoxia; J96.22 - Acute and chronic respiratory failure with hypercapnia Code(s): J96.20 - Acute and chronic respiratory failure, unspecified whether with hypoxia or hypercapnia Status: Acute Assessment and Plan: He was admitted with extreme elevation of pCO2 at 102.8 mm Hg ; was on BiPAP with improvement then switched to high flow nasal cannula, with decreased O2 requirement. His decompensation is a combination of possible pneumonia with increased infiltrates, leukocytosis with left shift, underlying COPD/ bronchiectasis -at home uses a vibratory vest twice a day for 30 minutes; on-going smoking; untreated FERNANDO; pulmonary doctor Dr. Wang Nov 03 recommended admission at [facility], pt refused; worsened Nov 05 with extreme respiratory failure. 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 (2) COPD (chronic obstructive pulmonary disease): Qualifiers: COPD type: unspecified COPD Qualified Code(s): J44.9 - Chronic obstructive pulmonary disease, unspecified Code(s): J44.9 - Chronic obstructive pulmonary disease, unspecified Status: Acute Assessment and Plan: Has COPD and bronchiectasis. Home meds include Symbicort 160/4.5 TWO puffs bid and nebulizer with Duoneb 4 times a day. Will continue to wean steroids as he is not wheezing, has improved gas exchange with normal pH. (3) Obstructive sleep apnea: Code(s): G47.33 - Obstructive sleep apnea (adult) (pediatric) Status: Acute Assessment and Plan: Jul 22, 2019 CPAP titration showed optimal pressure 22/28 with 6 L/min O2 with an option for NPPV such as Trilogy or Astral device. says that he used NPPV for 2 weeks, could not tolerate it, and was on CPAP for the month or so before this admission. CPAP would not be expected to control his CO2 as well as Bipap or NPPV. This may have cotributed to his deterioration. (4) Secondary pulmonary hypertension: Status: Acute Assessment and Plan: Severe increase in pulmonary artery pressures due to COPD, hypoxemia, untreated FERNANDO. This hsould improve with treatmentof FERNANDO and stopping smoking. (5) Tobacco abuse: Code(s): Z72.0 - Tobacco use Status: Acute Assessment and Plan: Has smoked 55 years, and was smoking 5 cigarettes per day before this admission. Smoked up to 2 ppd for about 10 years ~ 65-70 pack year history. (6) Bronchiectasis: Code(s): J47.9 - Bronchiectasis, uncomplicated Status: Acute Assessment and Plan: He uses a vibratory vest at home; continue use while in-patient. Subjective Date/time seen: 11/10/19 19:06 69 yo man is seen in follow up for acute on chronic respiratory failure, COPD, tobacco; Room 324, feeling better, still has moist cough with little sputum expectorated. He is on lower settings 40L/min, 40%. He is sitting on the side of the bed, appears comfortable. His WBC count was normal Feb 2. Review of Systems Review of Systems: All systems reviewed & are unremarkable except as noted in HPI and below Exam Narrative: Exam Narrative: 99 Const: General: cooperative and comfortable HENMT: Face and sinus: normal facial exam Mouth: Yes Nor
[2019-11-11] VITALS (8 sets, daily range): BP systolic 122–138; BP diastolic 56; PULSE 63–94; RESP 16–20; TEMP 36.4–36.7; O2SAT 91–99
[2019-11-11] MEDS: IPRATROPIUM BR 0.02% INH SOLN 0.5 MG/2.5 ML VIAL INHALATION ×3 (03:09→14:48)
[2019-11-11] MEDS: ALBUTEROL SULFATE NEB 2.5 MG/0.5 ML INH 5 MG INHALATION ×3 (03:09→14:48)
[2019-11-11] MEDS: PHENYTOIN SODIUM 100 MG CAP 200 MG PO ×2 (05:24→14:47)
[2019-11-11 06:13] LABS: Basophils Percent Auto 0.6 % (0.2-1.2); Eosinophils Absolute Auto 0.3 K/mm3 (0-0.3); Eosinophils Percent Auto 5.3 % (0-4.4); Hemoglobin 12.1 g/dL (14.0-18.0); Immature Granulocyte Absolute 0.03 K/mm3 (0.00-0.031); Immature Granulocyte Percent A 0.5 % (0-0.5); Lymphocytes Absolute Auto 1.24 K/mm3 (0.9-3.2); Lymphocytes Percent Auto 19.7 % (18.3-44.2); Mean Corpuscular HGB Conc 29.5 g/dl (32-36); Mean Corpuscular Hemoglobin 31.5 pg (26-34); Mean Corpuscular Volume 106.8 fl (80-100); Mean Platelet Volume 9.8 fl (7.4-10.4); Monocytes Absolute Auto 0.7 K/mm3 (0.1-0.6); Monocytes Percent Auto 11.5 % (2.6-8.5); Neutrophils Absolute Auto 3.9 K/mm3 (1.3-6.7); Neutrophils Percent Auto 62.4 % (45.5-73.1); Platelet Count Result 174 k/mm3 (150-375); Red Blood Count 3.84 M/mm3 (4.6-6.20); Red Cell Distribution Width 15.9 % (11.5-14.5); White Blood Count 6.3 K/mm3 (4.5-10.0)
[2019-11-11 06:29] LABS: Blood Urea Nitrogen 26 mg/dL (9-20); Carbon Dioxide > 40 mmol/L (22-30); Chloride 93 mmol/L (98-107); Estimated CRCL calculation 69 ml/min; Estimated Glomerular Filt Rate > 60; Glucose 94 mg/dL (75-110); Potassium 4.2 mmol/L (3.4-5.0); Sodium 139 mmol/L (137-145)
[2019-11-11 08:44] LABS: Platelet Estimate Adequate (Adequate)
[2019-11-11 08:45] LABS: Anisocytosis 1+ (NORMAL); Hypochromasia 1+ (NORMAL)
[2019-11-11] MEDS: predniSONE 40 MG, predniSONE 10 MG 50 MG PO (09:30)
[2019-11-11] MEDS: ENOXAPARIN 40 MG/0.4 ML SYRINGE SUB-Q (09:30)
[2019-11-11] MEDS: PANTOPRAZOLE 40 MG TABLET PO (09:30)
[2019-11-11] MEDS: lisinopriL 10 MG TABLET PO (09:31)
--- NOTE | 2019-11-11 14:10 | PM.IMPN ---
Progress Note: A&P Assessment and Plan (1) Acute and chronic respiratory failure: Qualifiers: Respiratory failure complication: hypoxia and hypercapnia Qualified Code(s): J96.21 - Acute and chronic respiratory failure with hypoxia; J96.22 - Acute and chronic respiratory failure with hypercapnia Code(s): J96.20 - Acute and chronic respiratory failure, unspecified whether with hypoxia or hypercapnia Status: Acute Assessment and Plan: Innitial blood gases were not correlating clinically with a pulse ox. Also with the degree of CO2 retention would expect pH to be much lower since when he was here before his pH is were in the 7.3 range when his pCO2 was only in the 70s. Must have been getting a mixed arterial venous or venous gas on the blood gas. Chest x-ray reticular nodular could be is chronic bronchiectasis, but could be infectious also. Blood cultures negative still and calcitonin level ordered, emperic levafloxacin( D#6) Full-dose anticoagulation initially and now back to prophylactic dose, venous Doppler is negative of lower extremities (2) COPD (chronic obstructive pulmonary disease): Qualifiers: COPD type: unspecified COPD Qualified Code(s): J44.9 - Chronic obstructive pulmonary disease, unspecified Code(s): J44.9 - Chronic obstructive pulmonary disease, unspecified Status: Acute Assessment and Plan: Continue updrafts and steroids with taper to po today and cover with Levaquin for atypical infection and possible acute acerbation urine antigens negative too (3) Elevated troponin: Code(s): R79.89 - Other specified abnormal findings of blood chemistry Status: Acute Assessment and Plan: Troponin went up to 2. There were no EKG change. Could be secondary to the respiratory failure and demand ischemia. No chest pain. Had no wall motion abnormalities so back to prophylactic dose of Lovenox 11/07 (4) Hypertension: Code(s): I10 - Essential (primary) hypertension Status: Acute Assessment and Plan: Blood pressure slightly higher and Armaan restarted now with lower potassium and better bp (5) Obstructive sleep apnea: Code(s): G47.33 - Obstructive sleep apnea (adult) (pediatric) Status: Acute Assessment and Plan: Continue nocturnal BiPAP (6) Seizure disorder: Code(s): G40.909 - Epilepsy, unspecified, not intractable, without status epilepticus Status: Acute Assessment and Plan: Continue Dilantin therapy and increased dose 200 tid 2/ with level still low after 450 qd (7) Anemia: Code(s): D64.9 - Anemia, unspecified Status: Acute Assessment and Plan: Hemoglobin mildly depressed and much is same as it had been before. In May anemia parameters were compatible with iron deficiency anemia. Recheck iron studies and still more compatible with iron deficiency. Ferritin only 20. B12 is normal again above 500 (8) DVT prophylaxis: Code(s): Z29.9 - Encounter for prophylactic measures, unspecified Status: Acute Assessment and Plan: Lovenox Subjective Date/time seen: 11/11/19 14:10 Interval history: 69-year-old hypertensive white male with COPD on home O2 admitted with acute on chronic respiratory failure and elevated troponin. No chest pain. He had been getting worse last few days prior to admission feels slightly better each day. off bipap most of day since 11/07 No cough per say.and still on high flow. Feel better up with PT and wants to go home Review of Systems Review of Systems: All systems reviewed & are unremarkable except as noted in HPI and below Exam Narrative: Exam Narrative: Blood pressure is 140/68 pulse is 76 respirations 18 per minute on high flow 02 with 92% Pupils equal reactive to light sclera anicteric Neck supple no adenopathy no carotid bruits Lungs prolonged expiratory phase and no wheezes today, moving air better today CV no murm
--- NOTE | 2019-11-11 14:17 | PM.DS ---
DS: Diagnosis Admitting Diagnosis Admitting Diagnosis: Acute and chronic respiratory failure with hypercapnia Discharge Diagnosis (1) Acute and chronic respiratory failure: Qualifiers: Respiratory failure complication: hypoxia and hypercapnia Qualified Code(s): J96.21 - Acute and chronic respiratory failure with hypoxia; J96.22 - Acute and chronic respiratory failure with hypercapnia Code(s): J96.20 - Acute and chronic respiratory failure, unspecified whether with hypoxia or hypercapnia Status: Acute Assessment and Plan: Compoeted 7 days IV levofloxacin (2) COPD (chronic obstructive pulmonary disease): Qualifiers: COPD type: unspecified COPD Qualified Code(s): J44.9 - Chronic obstructive pulmonary disease, unspecified Code(s): J44.9 - Chronic obstructive pulmonary disease, unspecified Status: Acute Assessment and Plan: Continue steroid taper, bronchodilators, CPT, bipap while sleeping. (3) Elevated troponin: Code(s): R79.89 - Other specified abnormal findings of blood chemistry Status: Acute Assessment and Plan: Troponin went up to 2. There were no EKG change. Could be secondary to the respiratory failure and demand ischemia. No chest pain. Had no wall motion abnormalities so back to prophylactic dose of Lovenox 11/07 (4) Hypertension: Code(s): I10 - Essential (primary) hypertension Status: Acute Assessment and Plan: Blood pressure slightly higher and Armaan restarted now with lower potassium and better bp (5) Obstructive sleep apnea: Code(s): G47.33 - Obstructive sleep apnea (adult) (pediatric) Status: Acute Assessment and Plan: Continue nocturnal BiPAP (6) Seizure disorder: Code(s): G40.909 - Epilepsy, unspecified, not intractable, without status epilepticus Status: Acute Assessment and Plan: Continue Dilantin therapy and increased dose 200 tid 2/ with level still low after 450 qd (7) Anemia: Code(s): D64.9 - Anemia, unspecified Status: Acute Assessment and Plan: Hemoglobin mildly depressed and much is same as it had been before. In May anemia parameters were compatible with iron deficiency anemia. Recheck iron studies and still more compatible with iron deficiency. Ferritin only 20. B12 is normal again above 500 (8) DVT prophylaxis: Code(s): Z29.9 - Encounter for prophylactic measures, unspecified Status: Acute Assessment and Plan: Lovenox while inpatient DS: Summary Hospital Course Reason for hospitalization: dyspnea Hospital Course: 69-year-old hypertensive white male with COPD on home O2 admitted with acute on chronic respiratory failure and elevated troponin. No chest pain. He had been getting worse last few days prior to admission feels slightly better each day. off bipap most of day since 11/07 Responded with to steroids, bronchodilators, levaquin, cpt, bipap while sleeping, and oxygen at 4 L by NC. Walked over 200 ft with standby with PT. No cough per say.and still on high flow. Feel better up with PT and wants to go home Time Spent with Patient Time attestation: Total time spent providing and/or coordinating discharge services: 35 min Exam Narrative: Exam Narrative: Pupils equal reactive to light sclera anicteric Neck supple no adenopathy no carotid bruits Lungs prolonged expiratory phase and no wheezes but mild rhonchi in lower lobes CV no murmurs or gallops Abdomen soft nontender no masses slightly obese Extremities trace edema dorsalis pedis posterior tibial 0 1+ Neuro no focal deficits, aerlt & oriented x3, CN grossly intact DS: Data Data Completed and Pending Labs on day of discharge: Labs from last 24 hours 11/11/19 11/11/19 05:54 05:54 WBC 6.3 RBC 3.84 L Hgb 12.1 L Hct 41.0 L MCV 106.8 H MCH 31.5 MCHC 29.5 L RDW 15.9 H Plt Count 174 MPV 9.8 Immature Gran % (Auto) 0.5 Ne
[2019-11-11 15:06] LABS: Procalcitonin 0.17 ng/mL (<0.10)
--- NOTE | 2019-11-11 16:16 | PM.PNPUL ---
Progress Note: A&P Assessment and Plan (1) Acute and chronic respiratory failure: Qualifiers: Respiratory failure complication: hypoxia and hypercapnia Qualified Code(s): J96.21 - Acute and chronic respiratory failure with hypoxia; J96.22 - Acute and chronic respiratory failure with hypercapnia Code(s): J96.20 - Acute and chronic respiratory failure, unspecified whether with hypoxia or hypercapnia Status: Acute Assessment and Plan: Admitted extreme elevation of pCO2 at 140 mm Hg ; was on BiPAP 31/05 with improvement then switched to high flow nasal cannula, with decreased O2 requirement. Now on 2.5 L/min. His decompensation is a combination of possible pneumonia with increased infiltrates, leukocytosis now normal; underlying COPD/ bronchiectasis -at home uses a vibratory vest twice a day for 30 minutes; on-going smoking; untreated FERNANDO; pulmonary doctor Dr. Wang Nov 03 recommended admission at [facility], pt refused; worsened Nov 05 with extreme respiratory failure. 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 PLAN: Call Dr. Dumont's office for follow up including instructions for use of BiPAP or Trilogy. Regular CPAP will not be sufficient. Do not smoke. Use your vibratory vest at home. (2) COPD (chronic obstructive pulmonary disease): Qualifiers: COPD type: unspecified COPD Qualified Code(s): J44.9 - Chronic obstructive pulmonary disease, unspecified Code(s): J44.9 - Chronic obstructive pulmonary disease, unspecified Status: Acute Assessment and Plan: Has COPD and bronchiectasis. Home meds include Symbicort 160/4.5 TWO puffs bid and nebulizer with Duoneb 4 times a day. Will continue to oral wean of prednisone. Has improved gas exchange with normal pH. (3) Obstructive sleep apnea: Code(s): G47.33 - Obstructive sleep apnea (adult) (pediatric) Status: Acute Assessment and Plan: Jul 22, 2019 CPAP titration showed optimal pressure 22/28 with 6 L/min O2 with an option for NPPV such as Trilogy or Astral device. says that he used NPPV for 2 weeks, could not tolerate it, and was on CPAP for the month or so before this admission. CPAP would not be expected to control his CO2 as well as Bipap or NPPV. This may have cotributed to his deterioration. (4) Secondary pulmonary hypertension: Status: Acute Assessment and Plan: Severe increase in pulmonary artery pressures due to COPD, hypoxemia, untreated FERNANDO. This hsould improve with treatmentof FERNANDO and stopping smoking. (5) Tobacco abuse: Code(s): Z72.0 - Tobacco use Status: Acute Assessment and Plan: Has smoked 55 years, and was smoking 5 cigarettes per day before this admission. Smoked up to 2 ppd for about 10 years ~ 65-70 pack year history. (6) Bronchiectasis: Code(s): J47.9 - Bronchiectasis, uncomplicated Status: Acute Assessment and Plan: He uses a vibratory vest at home; continue use while in-patient. Subjective Date/time seen: 11/11/19 16:16 This 69 yo man is seen for acute on chronic respiratory failure, down to 2.5 L/min; he is feeling better, is ready for discharge. He has a CPAP at home, needs to be on either bipap or NPPV at home due to hypercapnic resp failure. He was treated with a week of Levaquin, steroid taper. Review of Systems Review of Systems: All systems reviewed & are unremarkable except as noted in
== END 2019-11-11 19:05 | disposition home or self-care (01) | DRG 189 ==
LOC: ANHED 13:50 → ANHICU 14:01 → ANHIMU 11-08 19:35 → ANH3MEDSUR 11-10 04:39 → ANHICU 11-13 12:47 → ANHIMU 11-13 12:47
PROVIDERS: Internal Medicine; Internal Medicine Critical Care Medicine; Admitting Provider Internal Medicine; Emergency Provider Family Medicine; PCP Student in an Organized Health Care Education/Training Program; Visit Provider Internal Medicine
DX: J96.22 Acute and chronic respiratory failure with hypercapnia (principal); J44.1 Chronic obstructive pulmonary disease with (acute) exacerbation; I10 Essential (primary) hypertension; J44.9 Chronic obstructive pulmonary disease, unspecified; Z99.81 Dependence on supplemental oxygen; G47.33 Obstructive sleep apnea (adult) (pediatric); I27.20 Pulmonary hypertension, unspecified; F17.210 Nicotine dependence, cigarettes, uncomplicated; G40.909 Epilepsy, unspecified, not intractable, without status epilepticus; D64.9 Anemia, unspecified; Z85.46 Personal history of malignant neoplasm of prostate; Z85.828 Personal history of other malignant neoplasm of skin; G89.29 Other chronic pain; M54.9 Dorsalgia, unspecified; J96.21 Acute and chronic respiratory failure with hypoxia
CPT/HCPCS: 36415; 36600; 51701; 71045; 80048; 80053; 80069; 80185; 81001; 82375; 82607; 82728; 82805; 83050; 83540; 83550; 83615; 83735; 83880; 84100; 84145; 84484; 85025; 85055; 87040; 87070; 87081; 87205; 87449; 87804; 87899; 93005; 93970; 94002; 94003; 94640; 94669; 97110; 97116; 97161; 97165; 99285; A9270; C8929; J0360; J0696; J1165; J1650; J1956; J2270; J2920; J2930; J7030; J7512; Q9957

== ENCOUNTER 2019-11-25 10:02 | Outpatient (CLI) | payer MEDICARE, SELFPAY ==
--- NOTE | ~2019-11-25 | US_ITS ---
EXAMINATION: US venous doppler [facility] DATE: 11/25/2019 10:50 INDICATION: Left lower limb swelling TECHNIQUE: Grayscale ultrasound images without and with compression and Doppler ultrasound images of the left lower extremity veins were obtained. COMPARISON: 11/05/2019 FINDINGS: The visualized portions of left common femoral vein, profunda (deep) femoral vein, femoral vein, popl iteal vein, peroneal veins, posterior tibial veins, gastrocnemius vein and greater saphenous vein out flow are patent. IMPRESSION: 1. No deep venous thrombosis in the left lower limb. Reviewed, dictated and finalized at location A. [facility] [employer] MANAGER
== END 2019-11-25 10:03 | disposition home or self-care (01) ==
LOC: ANHIMG 10:03
PROVIDERS: PCP Student in an Organized Health Care Education/Training Program; Visit Provider Student in an Organized Health Care Education/Training Program
DX: M79.89 Other specified soft tissue disorders (principal)
CPT/HCPCS: 93971

== ENCOUNTER 2020-01-25 08:04 | Inpatient (IN) | payer MEDICARE, SELFPAY ==
[2020-01-25] VITALS (25 sets, daily range): BP systolic 115–167; BP diastolic 55–83; PULSE 76–98; RESP 17–36; TEMP 36.3–36.6; O2SAT 82–100; BMI 32.5
--- NOTE | ~2020-01-25 | XR_ITS ---
EXAMINATION: XR chest 1V portable DATE: 01/28/2020 06:05 INDICATION: Pneumonia. COPD exacerbation. TECHNIQUE: frontal view of the chest was obtained. COMPARISON: Chest radiograph dated 01/27/2020 FINDINGS: Endotracheal tube tip 3.4 cm above the luciano. Nasogastric tube extends below the left hemidiaphragm with distal tip collimated off the study. Interval increase in the diffuse increased indistinct interstitial pattern throughout both lungs. Ban dlike discoid atelectasis projects over the right hilum. There are few scattered calcified pulmonary nodules consistent with old granulomatous disease. No pneumothorax or pleural effusion. The cardiomed iastinal silhouette is normal. Visualized bones and soft tissues are unremarkable. IMPRESSION: 1. Slight increase in bilateral lung disease which could represent pulmonary edema, pneumonia or some combination thereof. Reviewed, dictated and finalized at location A. IMPRESSION: 1. Slight increase in bilateral lung disease which could represent pulmonary ed amy, pneumonia or some combination thereof.
--- NOTE | ~2020-01-25 | XR_ITS ---
EXAMINATION: XR chest 1V portable INDICATION: Pneumonia, COPD exacerbation TECHNIQUE: Portable AP chest at 0531 hours COMPARISON: 01/30/2020 FINDINGS: Airspace opacities in the lung bases and right midlung zone persist but have improved. Ther e is no pleural effusion or pneumothorax. The cardiomediastinal silhouette is normal. IMPRESSION: 1. Persistent but improved airspace opacities of the lung bases and right midlung zone, consistent wi th atelectasis and/or pneumonia and/or pulmonary edema. Reviewed, dictated and finalized at location A. IMPRESSION: 1. Persistent but improved airspace opacities of the lung bases and right midlu ng zone, consistent with atelectasis and/or pneumonia and/or pulmonary edema.
--- NOTE | ~2020-01-25 | XR_ITS ---
XR chest ET placement DATE: 01/26/2020 09:39 INDICATION: ET tube placement; confirm position TECHNIQUE: Portable AP chest on 01/26/2020 at 0921 hours COMPARISON: 01/26/2020 portable AP chest at 0521 hours FINDINGS: ET tube approximately 3.7 cm above luciano in satisfactory position. NG tube in stomach. There are patchy infiltrates involving primarily the right mid and lower lung zones. Normal heart siz e. Aortic calcification. IMPRESSION: ET and NG tubes in satisfactory position Patchy right mid and lower lung zone infiltrates Reviewed, dictated and finalized at Location A. Reviewed, dictated and finalized at location A.
--- NOTE | ~2020-01-25 | XR_ITS ---
XR abdomen NG/feed tube insert DATE: 01/26/2020 09:39 INDICATION: OG tube placement TECHNIQUE: Portable supine AP view on 01/26/2020 at 0923 hours COMPARISON: None FINDINGS: There is an orogastric tube extending approximately 10 cm into the stomach. Nonspecific bowel gas pattern. IMPRESSION: OG tube in proximal stomach Reviewed, dictated and finalized at Location A. Reviewed, dictated and finalized at location A. IMPRESSION: OG tube in proximal stomach
--- NOTE | ~2020-01-25 | XR_ITS ---
EXAMINATION: XR chest 1V portable DATE: 01/26/2020 06:20 INDICATION: Acute on chronic hypoxic respiratory failure. TECHNIQUE: frontal view of the chest was obtained. COMPARISON: Chest radiograph dated 01/25/2020 and 11/07/2019 FINDINGS: Bilateral increased interstitial pattern in the mid to lower lung zones, right greater than left whic h has progressed since the most recent study but which is decreased since 11/07/2019. Linear band of d iscoid atelectasis in the right midlung zone. Multiple scattered bilateral small calcified pulmonary nodules consistent with old granulomatous disease. No pleural effusion or pneumothorax. The cardiomed iastinal silhouette is normal. IMPRESSION: 1. Worsening lung disease in the bilateral mid and lower lung zones, right greater than left, which c ould represent increasing pulmonary edema or pneumonia. Reviewed, dictated and finalized at location A. IMPRESSION: 1. Worsening lung disease in the bilateral mid and lower lung zones, right grea ter than left, which could represent increasing pulmonary edema or pneumonia.
--- NOTE | ~2020-01-25 | XR_ITS ---
EXAMINATION: XR chest 1V portable DATE: 01/29/2020 05:45 INDICATION: Pneumonia. COPD exacerbation. TECHNIQUE: frontal view of the chest was obtained. COMPARISON: Chest radiograph dated 01/28/2020 FINDINGS: Endotracheal tube and nasogastric tube have been removed. Interval improvement in the increased inter stitial pattern throughout both lungs. Persistent bandlike discoid atelectasis/scarring in the right midlung zone. No pleural effusion or pneumothorax. Again seen are a few scattered bilateral small enrique cified pulmonary nodules consistent with old granulomatous disease. The cardiomediastinal silhouette is normal. IMPRESSION: 1. Slight improvement in bilateral interstitial opacities which could represent pulmonary edema, pneu monia or some combination thereof. Reviewed, dictated and finalized at location A. IMPRESSION: 1. Slight improvement in bilateral interstitial opacities which could represent pulmonary edema, pneumonia or some combination thereof.
--- NOTE | ~2020-01-25 | XR_ITS ---
EXAMINATION: XR chest 1V portable EXAM DATE: 01/25/2020 08:38 INDICATION: Dyspnea, labored breathing. TECHNIQUE: Portable AP frontal chest x-ray was obtained. Comparison is made to prior examination from 11/08/2019. FINDINGS: There is right basilar indistinct reticulation consistent with edema and/or pneumonia. Plea se note that there was much more extensive similar-appearing airspace disease on prior study from Fe ruary 1. The cardiomediastinal silhouette is prominent but magnified on this AP technique. Cardiac si lhouette is stable in size compared to prior exam. There is no pneumothorax suspected. There are no p leural effusions. There are no osseous abnormalities identified. IMPRESSION: Ill-defined multisegmental right basilar edema and/or pneumonia. Reviewed, dictated and finalized at location A.
--- NOTE | ~2020-01-25 | XR_ITS ---
EXAMINATION: XR chest 1V portable DATE: 01/30/2020 05:44 INDICATION: Pneumonia. COPD exacerbation. TECHNIQUE: frontal view of the chest was obtained. COMPARISON: Chest radiograph dated 01/29/2020 FINDINGS: No significant interval change in a reticular and mild airspace opacities in the right mid to lower a nd left lower lung zones. No pleural effusion or pneumothorax.. The cardiomediastinal silhouette is n ormal. IMPRESSION: 1. No significant change in opacities in the right mid to lower and left lower lung zones which could represent pneumonia, pulmonary edema, atelectasis or some combination thereof. Reviewed, dictated and finalized at location A. IMPRESSION: 1. No significant change in opacities in the right mid to lower and left lower lung zones which could represent pneumonia, pulmonary edema, atelectasis or lucina e combination thereof.
--- NOTE | ~2020-01-25 | XR_ITS ---
EXAMINATION: XR chest 1V portable DATE: 01/27/2020 06:14 INDICATION: Pneumonia. COPD exacerbation. TECHNIQUE: frontal view of the chest was obtained. COMPARISON: Chest radiograph dated 01/26/2020 FINDINGS: Endotracheal tube tip 4.3 cm above the luciano. Nasogastric tube extends below the left hemidiaphragm with distal tip collimated off the study. Oblique linear band of discoid atelectasis in the right midlung zone. Improvement in additional less well-defined opacities throughout the left lung and in the left lower lung zone. Scattered bilateral small calcified pulmonary nodules consistent with old granulomatous disease. The cardiomediastinal si lhouette is normal. IMPRESSION: 1. Slight improvement in bilateral lung disease which could represent pulmonary edema, pneumonia, ate lectasis or some combination thereof. Reviewed, dictated and finalized at location A. IMPRESSION: 1. Slight improvement in bilateral lung disease which could represent pulmonary edema, pneumonia, atelectasis or some combination thereof.
--- NOTE | 2020-01-25 08:27 | ECG_ITS ---
Measurements Intervals [place] Rate: 94 P: 69 NV: 163 QRS: 74 QRSD: 105 T: 57 QT: 327 QTc: 410 Interpretive Statements SINUS RHYTHM BORDERLINE ST ABNORMALITY- ANT/INF LEADS BASELINE WANDER- V3-V4 BORDERLINE ECG Electronically Signed On 01-25-2020 15:02:37 CDT by Julien Ku D.O.
--- NOTE | 2020-01-25 08:39 | ED.SOB ---
HPI - SOB/Dyspnea General Chief Complaint: Shortness of Breath/Dyspnea Stated Complaint: lethargic Time Seen by Provider: 01/25/20 08:08 Source: patient and old records reviewed Mode of arrival: EMS Limitations: clinical condition History of Present Illness HPI Narrative: Patient is a 69-year-old male presents to the emergency department with complaint of shortness of breath. Patient has history of severe COPD, bronchiectasis, chronic respiratory failure, and obstructive sleep apnea. Patient was hospitalized with similar symptoms and respiratory failure at the end of October. Patient and report he has been short of breath for the past couple of days. Patient said he did not wish to be intubated when asked by nursing staff and myself on arrival, but states he would want intubation. Patient of note had severe elevation of his PCO2 during previous hospitalization but was able to be managed with noninvasive ventilation and did not require intubation. Patient is awake and answering questions. Patient was noted to be rather hypoxic on arrival of EMS and placed on CPAP and remains hypoxic on arrival to the ED, hence transition to BiPAP and started on continuous neb treatment. MD elicited complaint: shortness of breath Pertinent past history: COPD Onset (ago): day(s) Timing: constant Known history of: COPD Treatment prior to arrival: oxygen and NIPPV (CPAP) Related Data Home oxygen amount: other (2.5 liters per D/C summary 11/11/19) Home Medications Medication Instructions Recorded Confirmed aspirin 81 mg PO DAILY 11/05/19 11/05/19 atorvastatin 20 mg PO DAILY 11/05/19 11/05/19 lisinopril 10 mg PO DAILY 11/05/19 11/05/19 bicalutamide 50 mg PO DAILY 01/25/20 budesonide-formoterol [Symbicort] 2 puff INHALATION DAILY 01/25/20 hydrocodone-acetaminophen 1 tablet PO Q8H PRN 01/25/20 phenytoin sodium extended 200 mg PO QID 01/25/20 [Dilantin Extended] ranitidine HCl 150 mg PO HS 01/25/20 Allergies Allergy/AdvReac Type Severity Reaction Status Date / Time No Known Allergies Allergy Verified 01/25/20 08:20 Review of Systems Review of Systems: All systems reviewed & are unremarkable except as noted in HPI and below Respiratory: Respiratory: Reports dyspnea PMFSH Past Medical History Medical History (Updated 01/25/20 @ 13:09 by Modesta Wisdom MD) Bronchiectasis COPD (chronic obstructive pulmonary disease) Hyperlipidemia Hypertension Obstructive sleep apnea On home O2 PAD (peripheral artery disease) Secondary pulmonary hypertension Seizure disorder Surgical History Surgical History (Updated 01/25/20 @ 08:47 by Modesta Wisdom MD) History of AAA (abdominal aortic aneurysm) repair Family History Family History (System 11/13/19 @ 14:02 by Pam Carmona) Other Diabetes mellitus Family history of coronary artery disease Social History Social History Smoking packs per day: 0.2 Smoking cigarettes per day: 4.0 Years smoked: 55 Smoking pack-years: 11.00 Smoking status: Former smoker Tobacco type: cigarettes Smoking end date: 10/08/10 Alcohol intake: never Gender identity (if verbalized by the patient): Male Spiritual care concerns: No Agree to blood products: Yes Exam Const: General: cooperative, alert and ill appearing acutely Nutritional Appearance: obese Orientation/consciousness: patient oriented x3 HENMT: Mouth: Yes lip normal and Yes moist mucous membranes Resp: Effort & Inspection: labored, respiratory distress and tachypneic Auscultation: diminished lung sounds diffuse Cardio: Rate: regular rate Rhythm: regular rhythm Peripheral pulses: radial pulses present bilateral 3+ and dorsalis pedis present bilateral 1+ GI: GI Palp: Yes Soft to palpation and No Tenderness to palpation present (GI) Auscultation: normal bowel sounds Skin: General skin exam: normal color Neuro: General: patient
[2020-01-25] MEDS: methylPREDNISolone SOD SUCC 125 MG VIAL IV PUSH (08:47)
[2020-01-25] MEDS: IPRATROPIUM BR 0.02% INH SOLN 0.5 MG/2.5 ML VIAL 1.5 MG INHALATION (08:59)
[2020-01-25] MEDS: ALBUTEROL SULFATE NEB 2.5 MG/0.5 ML INH 15 MG INHALATION (08:59)
--- NOTE | 2020-01-25 08:59 | PC.NURSE ---
Called lab to add on BNP.
[2020-01-25 09:03] LABS: Basophils Percent Auto 0.5 % (0.2-1.2); Eosinophils Absolute Auto 0.4 K/mm3 (0-0.3); Hematocrit 44.3 % (42.0-52.0); Hemoglobin 13.1 g/dL (14.0-18.0); Immature Granulocyte Absolute 0.14 K/mm3 (0.00-0.031); Immature Granulocyte Percent A 1.7 % (0-0.5); Immature Platelet Fraction Pct 3.6 % (0.9-11.2); Mean Corpuscular HGB Conc 29.6 g/dl (32-36); Mean Corpuscular Hemoglobin 32.3 pg (26-34); Mean Corpuscular Volume 109.1 fl (80-100); Mean Platelet Volume 10.1 fl (7.4-10.4); Monocytes Absolute Auto 0.9 K/mm3 (0.1-0.6); Monocytes Percent Auto 11.2 % (2.6-8.5); Neutrophils Absolute Auto 6.3 K/mm3 (1.3-6.7); Neutrophils Percent Auto 75.6 % (45.5-73.1); Platelet Count Result 111 k/mm3 (150-375); Red Blood Count 4.06 M/mm3 (4.6-6.20); Red Cell Distribution Width 16.8 % (11.5-14.5); White Blood Count 8.3 K/mm3 (4.5-10.0)
[2020-01-25 09:11] LABS: Basophilic Stippling 1+ (NORMAL); Platelet Estimate Decreased (Adequate); Stomatocytes 3+ (NORMAL)
[2020-01-25 09:18] LABS: Alanine Aminotransferase 13 U/L (4-50); Albumin Level 3.6 g/dL (3.5-5.1); Alkaline Phosphatase 142 U/L (38-126); Aspartate Amino Transferase 33 U/L (17-59); Bilirubin,Total 0.7 mg/dL (0.2-1.3); Blood Urea Nitrogen 20 mg/dL (9-20); Calcium 8.8 mg/dL (8.4-10.2); Carbon Dioxide > 40 mmol/L (22-30); Chloride 95 mmol/L (98-107); Estimated Glomerular Filt Rate > 60; Glucose 98 mg/dL (75-110); Potassium 4.9 mmol/L (3.4-5.0); Sodium 137 mmol/L (137-145)
[2020-01-25 09:19] LABS: NT Pro B Type Natriuretic Pept 260 PG/ML (5-100)
[2020-01-25 09:57] LABS: Lactic Acid Reflex 0.7 mmol/L (0.7-2.1)
[2020-01-25 10:23] LABS: Alveolar/Arterial O2 Gradient 504.7 mmHg; Base Excess ABG 14.2 mEq/l (+/-2.0); Fractional Inspired Oxygen 100 %; HCO3 ABG 50.9 mEq/l (22.0-26.0); Oxygen Content ABG 14.3 %vol (16.0-22.0); Oxyhemoglobin 71.2 % THb (90.0-100.0); PO2 FiO2 Ratio Arterial Blood 0.43 %; Total Hemoglobin 14.3 g/dL (12.0-18.0)
[2020-01-25 10:24] LABS: PCO2 ABG 164.9 mmHg (35.0-45.0); PO2 ABG 43.4 mmHg (80.0-100.0); pH ABG 7.107 (7.350-7.450)
[2020-01-25 10:25] LABS: Device NON-INVASIVE VENT; Modified Allen's Test Pass; Non-Invasive Expiratory Pressure 10 CMH2O; Non-Invasive Inspiratory Pressure 0 CMH2O; Non-Invasive Vent Rate 0 /MIN; Oxygen Saturation ABG 57.4 % (95.0-100.0); Site Drawn LEFT RADIAL
[2020-01-25 10:36] LABS: Alveolar/Arterial O2 Gradient 101.7 mmHg; Base Excess ABG 13.8 mEq/l (+/-2.0); Carboxyhemoglobin 2.8 % THb (0-2.0); Fractional Inspired Oxygen 50 %; HCO3 ABG 49.3 mEq/l (22.0-26.0); Methemoglobin ABG 0.2 %THb (0-1.5); Oxygen Content ABG 17.7 %vol (16.0-22.0); Oxygen Saturation ABG 90.9 % (95.0-100.0); Oxyhemoglobin 91.5 % THb (90.0-100.0); PO2 FiO2 Ratio Arterial Blood 1.68 %; Reduced Hemoglobin 5.5 %THb (0-5.0); Total Hemoglobin 13.7 g/dL (12.0-18.0)
[2020-01-25 10:39] LABS: Device NON-INVASIVE VENT; Modified Allen's Test Pass; PCO2 ABG 151.8 mmHg (35.0-45.0); Site Drawn LEFT RADIAL; pH ABG 7.129 (7.350-7.450)
[2020-01-25 10:41] LABS: Non-Invasive Expiratory Pressure 8 CMH2O; Non-Invasive Inspiratory Pressure 26 CMH2O; Non-Invasive Vent Rate 16 /MIN
--- NOTE | 2020-01-25 13:26 | PC.NURSE ---
PT O2 SATURATION NOTED TO BE 87% ON BIPAP AT 30% FIO2. PER ERP GELDMACHER FIO2 TO BE TURNED UP TO 40% FIO2. SETTINGS CHANGED AT THIS TIME, PT REPOSITIONED AND SAT UPRIGHT, RESPONDING WELL TO INCREASED FIO2, O2 SATURATION AT 93%.
--- NOTE | 2020-01-25 13:58 | WPDCNINT ---
Assessment and Plan Assessment and plan (1) Acute on chronic respiratory failure with hypoxia and hypercapnia: Code(s): J96.21 - Acute and chronic respiratory failure with hypoxia; J96.22 - Acute and chronic respiratory failure with hypercapnia Status: Acute Assessment and Plan: His baseline pCO2 seems to be in 70s/80s range. He is lethargic but easily arousable and alert when you have communication with him even with pCO2 of 150s and 160s. Will switch BiPAP to AVAPS settings as he did not respond to BiPAP with conventional sliding in the past. ABG in few hours from now after his settings are adjusted. Low threshold for intubation if his mental status deteriorated or ABG does not respond well to noninvasive mechanical ventilation. Will keep him on hypoxic side with oxygen saturation target between 89-92%. Adjust FiO2 on BiPAP. (2) COPD exacerbation: Code(s): J44.1 - Chronic obstructive pulmonary disease with (acute) exacerbation Status: Acute Assessment and Plan: Continue IV steroid. Start tapering the dose depending upon his clinical response. Will hold off nebulization for now until he is ruled out of COVID19 because of the concern for aerosole formation. Once he is ruled out then he can be started on DuoNebs nebulization. He can be on albuterol inhaler until then. (3) Secondary pulmonary hypertension: Status: Acute Assessment and Plan: Likely group 3 in nature. Continue to monitor. (4) Seizure disorder: Code(s): G40.909 - Epilepsy, unspecified, not intractable, without status epilepticus Status: Acute Assessment and Plan: He will be NPO. May switch Dilantin to IV if he remained NPO. (5) Obstructive sleep apnea: Code(s): G47.33 - Obstructive sleep apnea (adult) (pediatric) Status: Acute Assessment and Plan: He will be on BiPAP for now. (6) Hypertension: Code(s): I10 - Essential (primary) hypertension Status: Acute Assessment and Plan: Continue lisinopril. Continue to monitor renal parameters. (7) Suspected COVID-19 virus infection: Code(s): R68.89 - Other general symptoms and signs Status: Acute Assessment and Plan: Follow COVID19 testing. He will be in contact and droplet precaution. He will be placed in negative pressure room because of the BiPAP though he is being ruled out of COVID19. The likelihood of him having avalos virus infection is low as he remains at home with minimal contact with outside world. His does not have any suspected symptoms. Ideally he should be intubated but considering his significant respiratory comorbidities, he may need prolonged ventilation if he gets intubated (8) Pneumonia: Qualifiers: Laterality: right Lung location: lower lobe of lung Pneumonia type: due to unspecified organism Qualified Code(s): J18.9 - Pneumonia, unspecified organism Code(s): J18.9 - Pneumonia, unspecified organism Status: Acute Assessment and Plan: He has been started with ceftriaxone and azithromycin by the primary team for concern for possible pneumonia. Chest x-ray seems congested rather than true airspace disease. Will stop IV fluid and give him 1 dose of Lasix and repeat chest x-ray in a.m. Deescalate antibiotics if chest x-ray Shows resolution of the airspace disease. Will check procalcitonin level as well. Additional Plan DVT prophylaxis with Lovenox critical care time spent for more than 35 minutes Due to a high probability of clinically significant, life threatening deterioration, the patient required my highest level of preparedness to intervene emergently and I personally spent this critical care time directly and personally managing the patient. This critical care time included obtaining a history; examining the patient; pulse oximetry; ordering and review of studies; arranging urgent treatment wit
--- NOTE | 2020-01-25 14:36 | ADMGEN ---
This patient, Quentin Zavaleta, was admitted to Intensive Care Unit-4. Patient/family oriented to hospital policies and general routines including ID bracelet, bed and alarms, visiting hours, pain management, procedures, bathroom and other care routines, personal items, smoking policy, room service/diet, and visiting hours. Valuables list has been completed. Information on how to activate the Rapid Response Team has been discussed. Patient/Family are encouraged to report perceived risks to care and to ask questions if they do not understand what they are told or what they should do.
[2020-01-25] MEDS: FUROSEMIDE INJ 40 MG/4 ML VIAL IV PUSH (15:17)
[2020-01-25] MEDS: methylPREDNISolone SOD SUCC 125 MG VIAL 60 MG IV PUSH ×2 (15:17→21:41)
[2020-01-25 18:23] LABS: Alveolar/Arterial O2 Gradient 78.6 mmHg; Base Excess ABG 15.5 mEq/l (+/-2.0); Fractional Inspired Oxygen 35 %; HCO3 ABG 46.6 mEq/l (22.0-26.0); Oxygen Content ABG 16.8 %vol (16.0-22.0); PCO2 ABG 96.5 mmHg (35.0-45.0); PO2 ABG 58.8 mmHg (80.0-100.0); PO2 FiO2 Ratio Arterial Blood 1.68 %; Total Hemoglobin 13.6 g/dL (12.0-18.0); pH ABG 7.302 (7.350-7.450)
[2020-01-25 18:24] LABS: Device NON-INVASIVE VENT; Modified Allen's Test Pass; Oxygen Saturation ABG 85.7 % (95.0-100.0); Site Drawn LEFT RADIAL
[2020-01-25 18:28] LABS: Non-Invasive Vent Rate 32 /MIN
[2020-01-25] MEDS: ALBUTEROL SULFATE NEB 2.5 MG/0.5 ML INH 5 MG INHALATION (20:56)
[2020-01-25] MEDS: IPRATROPIUM BR 0.02% INH SOLN 0.5 MG/2.5 ML VIAL INHALATION (20:56)
--- NOTE | 2020-01-25 22:45 | PM.IMHP ---
H&P: HPI History of Present Illness Chief complaint: Shortness of breath. Narrative: Quentin Zavaleta is a 69 year old male with chronic hypoxic and hypercarbic respiratory failure on home oxygen, COPD, questionable history of bronchiectasis, obstructive sleep apnea, severe pulmonary hypertension, hypertension, peripheral vascular disease, and several other comorbidities who presented to the emergency department earlier this morning via EMS from home for evaluation of shortness of breath. At the time my evaluation, he is on a BiPAP but is able to provide a pretty good history despite the mask. He smoked up to 2 packs of cigarettes per day for at least 10 years, however smoked around a pack per day for nearly 40 years. He has told several providers that he has quit smoking, however his carboxyhemoglobin was a bit elevated on arrival today. In any regard, he has had worsening of his chronic dyspnea on exertion over the past several days. He has also been confused, much more so this morning, and that is what prompted to call 911 today. On EMS arrival, his SpO2 was 82% on his usual 3 liters of oxygen. Oxygen was increased to 6 liters with improvement in saturations to 90%. Ultimately he was placed on a non-rebreather and subsequently CPAP due to declining mental status during transport. On arrival to the emergency department, his SpO2 was 70% and he was started on BiPAP immediately. At the time of my evaluation, he is alert and oriented x4. He reports compliance with BiPAP at home. He has not had fever, chills, or sweats. He has a chronic cough, which is unchanged. He and his have been staying at home, and he denies known contact with anybody positive for COVID-19. No anosmia or dysgeusia. He denies nausea, vomiting, and diarrhea. No chest pain or pleuritic pain. Review of Systems Review of Systems: Narrative: Twelve systems were reviewed with pertinent positives and negatives as per HPI. Except as documented, all other systems were reviewed and are negative. [facility] Past Medical History Medical History (Updated 01/25/20 @ 23:54 by Maribel Ordaz PA-C) Bronchiectasis Apparently uses vibratory vest b.i.d. for [address] Wang. Chronic back pain COPD (chronic obstructive pulmonary disease) Diastolic dysfunction Echocardiogram in November 06, 2019 showed mild increase in LV wall thickness, grossly normal LV wall motion, ejection fraction estimated > 70%, grade 1 diastolic dysfunction, and mild tricuspid valve regurgitation. Hyperlipidemia Hypertension Macrocytic anemia Obstructive sleep apnea On home O2 PAD (peripheral artery disease) Prostate cancer Status post radiation. On anti androgens. Secondary pulmonary hypertension Noted on echocardiogram 11/06/2019 with an estimated peak RVSP of 70 millimeters of mercury. Seizure disorder Surgical History Surgical History (Updated 01/25/20 @ 23:49 by Maribel Ordaz PA-C) History of AAA (abdominal aortic aneurysm) repair History of vascular surgery Stents to bilateral lower extremities. Family History Family History Other Diabetes mellitus Family history of coronary artery disease Social History Social History (Updated 01/25/20 @ 23:50 by Maribel Ordaz PA-C) Social History: The patient is live in [place]. They have 4 children. He designates his , Jeanette, as his surrogate decision maker. He is currently listed as a full code at the urging of his . He has smoked for 55 years, smoking as much as 2 packs of cigarettes per day for 10 years. It is unclear if or when he actually has quit smoking. No alcohol or drug use. Smoking packs per day: 0.2 Smoking cigarettes per day: 4.0 Years smoked: 55 Smoking pack-years: 11.00 Smoking status: Former smoker Tobacco type: cigarettes Smoking end date: 10/08/10 Alcohol intake: never Substance use: ne
[2020-01-26] VITALS (26 sets, daily range): BP systolic 98–158; BP diastolic 56–134; PULSE 64–102; RESP 16–30; TEMP 36.2–37.7; O2SAT 91–100; BMI 32.8
[2020-01-26] MEDS: methylPREDNISolone SOD SUCC 125 MG VIAL 60 MG IV PUSH ×4 (02:54→20:30)
[2020-01-26] MEDS: ALBUTEROL SULFATE NEB 2.5 MG/0.5 ML INH 5 MG INHALATION ×3 (02:56→19:59)
[2020-01-26] MEDS: IPRATROPIUM BR 0.02% INH SOLN 0.5 MG/2.5 ML VIAL INHALATION ×3 (02:56→19:59)
[2020-01-26] MEDS: RAPID SEQUENCE INTUBATION KIT 1 EACH (09:20)
[2020-01-26] MEDS: ENOXAPARIN 40 MG/0.4 ML SYRINGE SUB-Q (09:47)
[2020-01-26 10:05] LABS: Alveolar/Arterial O2 Gradient 273.6 mmHg; Base Excess ABG 17.8 mEq/l (+/-2.0); Carboxyhemoglobin 1.4 % THb (0-2.0); Fractional Inspired Oxygen 60 %; HCO3 ABG 43.9 mEq/l (22.0-26.0); Methemoglobin ABG 0.3 %THb (0-1.5); Oxygen Content ABG 17.1 %vol (16.0-22.0); Oxygen Saturation ABG 97.3 % (95.0-100.0); Oxyhemoglobin 95.2 % THb (90.0-100.0); PCO2 ABG 57.9 mmHg (35.0-45.0); PO2 ABG 90.5 mmHg (80.0-100.0); PO2 FiO2 Ratio Arterial Blood 1.51 %; Reduced Hemoglobin 3.1 %THb (0-5.0); Total Hemoglobin 12.7 g/dL (12.0-18.0); pH ABG 7.498 (7.350-7.450)
[2020-01-26 10:06] LABS: Arterial Blood Gas PEEP 5 cmH2O; Arterial Blood Gas Pressure Support 0 cmH2O; Arterial Blood Gas Tidal Volume 490 ml; Arterial Blood Gas Vent Mode ASSIST CONTROL; Arterial Blood Gas Ventilator rate 18 /MIN; Device VENTILATOR; Site Drawn RIGHT BRACHIAL
[2020-01-26 10:07] LABS: Basophils Percent Auto 0.4 % (0.2-1.2); Eosinophils Absolute Auto 0.1 K/mm3 (0-0.3); Eosinophils Percent Auto 1.3 % (0-4.4); Hematocrit 38.1 % (42.0-52.0); Hemoglobin 11.6 g/dL (14.0-18.0); Immature Granulocyte Absolute 0.06 K/mm3 (0.00-0.031); Immature Granulocyte Percent A 0.7 % (0-0.5); Immature Platelet Fraction Pct 3.6 % (0.9-11.2); Lymphocytes Percent Auto 9.7 % (18.3-44.2); Mean Corpuscular HGB Conc 30.4 g/dl (32-36); Mean Corpuscular Volume 105.2 fl (80-100); Mean Platelet Volume 10.1 fl (7.4-10.4); Monocytes Absolute Auto 1.2 K/mm3 (0.1-0.6); Neutrophils Absolute Auto 6.1 K/mm3 (1.3-6.7); Neutrophils Percent Auto 73.9 % (45.5-73.1); Nucleated Red Blood Cells Perc 0.2 % (0.0-0.2); Platelet Count Result 111 k/mm3 (150-375); Red Blood Count 3.62 M/mm3 (4.6-6.20); Red Cell Distribution Width 16.4 % (11.5-14.5); White Blood Count 8.2 K/mm3 (4.5-10.0)
[2020-01-26 10:20] LABS: Blood Urea Nitrogen 25 mg/dL (9-20); Calcium 8.6 mg/dL (8.4-10.2); Carbon Dioxide > 40 mmol/L (22-30); Chloride 88 mmol/L (98-107); Estimated CRCL calculation 87 ml/min; Estimated Glomerular Filt Rate > 60; Glucose 93 mg/dL (75-110); Potassium 4.5 mmol/L (3.4-5.0); Sodium 138 mmol/L (137-145)
[2020-01-26] MEDS: PROPOFOL IV EMULSION 100 ML 17.6 MG IV CONT (10:23)
[2020-01-26 10:32] LABS: Phenytoin Dilantin < 3 ug/mL (10-20)
--- NOTE | 2020-01-26 11:42 | WPDPROCEDUR ---
Procedures Central Line Placement: Right Femoral: Discussed w/ patient and/or surrogate, the non-emergent placement of a central venous catheter, including its clinical necessity/indication & associated potential risks & complications.: Yes The patient and/or surrogate understand(s) and acknowledge(s) the need to proceed with central venous catheter insertion as an important element of the patient's clinical management.: Yes Emergently Placed - (Given emergent patient conditions, temporal constraints may not have permitted and aforementioned informed consent.): No Central Line Date: 01/26/20 Central Line Time: 08:20 Pre-procedural Time-Out was completed immediately before starting the procedure and confirmed: Patient Identification, Site, Procedure, Patient Position and the Availability of Requisite Equipment.: Yes Patient Position: supine Patient placed on monitor/pulse ox: Yes Provider Prep: mask, sterile gown, sterile gloves, Max. sterile barrier precautions and hand hygiene Central line prep: Chlorhexidine scrub and sterile full body sheet applied Local anesthesia used: lidocaine 1% Amount of anesthesia used (ml): 4 Ultrasound used for placement: Yes Central line lumen inserted: triple Icelandic: 16 Length (cm): 16 Depth of Insertion (cm): 16 Post procedure: sutured in place, good blood return, all ports aspirated, flushed, capped, tegaderm, hemostatic disc, antimicrobial disc and aseptic technique maintained throughout procedure Post procedure x-ray: tip of catheter in good position and no pneumothorax seen Patient tolerated procedure: well Complications: none
--- NOTE | 2020-01-26 11:52 | P.PCNBED_ITS ---
Procedures Intubation: Intubation Date: 01/26/20 Intubation Time: 08:50 A pre- procedural Time-Out was completed immediately before starting the procedure and confirmed: Patient Identification, Site, Procedure, Patient Position and the Availability of Requisite Equipment: Yes Sedative: etomidate Paralytic: succinylcholine Laryngoscope: fiber optic video scope Assist device used: fiber optic device ET tube size: 8 Tube secured depth (cm): 24 Tube secured location: lips Tube placement confirmation: visualized tube passing through cords, equal breath sounds bilaterally, no breath sounds over epigastrium and confirmation by capnometry Patient tolerated procedure: well Intubation complications: none Additional comments: After obtaining consent from the patient and explaining the rationale for intubation. it was decided to go ahead and intubate the patient. The patient was lying in the supine position. Preoxygenation via BVM was provided for a minimum of 3 minutes. The patient had continuous cardiac as well as pulse oximetry monitoring during the procedure. Rapid sequence induction was provided by administration of Etomidate and Succinylcholine. A Glidescope blade 4 was used to directly visualize the vocal cords. A 8 mm endotracheal tube was visualized advancing between the cords to a level of 24 cm at the lip. The stylette was then removed. Tube placement was also noted by fogging in the tube, equal and bilateral breath sounds, no sounds over the epigastrium, and end-tidal colorimetric monitoring. The cuff was then inflated with 10 ml of air and the tube secured using a commercially available device. A good pulse oximetry wave form was seen on the monitor throughout the procedure. The patient was then connected to the ventilator at a tidal volume of 490 ml; rate of 18; FiO2 of 60%; and PEEP of 5. A portable chest x-ray has been ordered for placement. Continued sedation will be provided by propofol continuous infusion titrated to a RASS of -2. The patient tolerated the procedure well.
--- NOTE | 2020-01-26 12:41 | WPDINTPN ---
Progress Note: A&P Assessment and Plan (1) Acute on chronic respiratory failure with hypoxia and hypercapnia: Code(s): J96.21 - Acute and chronic respiratory failure with hypoxia; J96.22 - Acute and chronic respiratory failure with hypercapnia Status: Acute Assessment and Plan: acute on chronic hypercapnic respiratory failure likely related to COPD exacerbation, noncompliance. - Patient was on BiPAP and was switched to AVAPS, patient was not tolerating the BiPAP mask and was pulling on it. Was confused but following simple commands and answer in a question. - His baseline pCO2 seems to be in the 70s and 80s range. - Patient was intubated on 01/26/2020 as he was not moving much air, was getting confused and agitated. - Maintain O2 sats > 88% - sedated with propofol (2) COPD exacerbation: Code(s): J44.1 - Chronic obstructive pulmonary disease with (acute) exacerbation Status: Acute Assessment and Plan: Continue IV steroid, mechanical ventilation, antibiotic - patient on ceftriaxone and azithromycin - rule out COVID19 and SArS-COV-2 PCR pending. - continue bronchodilators (3) Secondary pulmonary hypertension: Status: Acute Assessment and Plan: Likely group 3 in nature. Continue to monitor. (4) Seizure disorder: Code(s): G40.909 - Epilepsy, unspecified, not intractable, without status epilepticus Status: Acute Assessment and Plan: will switch Dilantin to IV (5) Hypertension: Qualifiers: Hypertension type: essential hypertension Qualified Code(s): I10 - Essential (primary) hypertension Code(s): I10 - Essential (primary) hypertension Status: Acute Assessment and Plan: hold all antihypertensives at this time (6) Suspected COVID-19 virus infection: Code(s): R68.89 - Other general symptoms and signs Status: Acute Assessment and Plan: Follow COVID19 testing. He will be in contact and droplet precaution. - he was placed a negative pressure room as he was on BiPAP. Currently intubated and sedated on mechanical ventilation (7) Pneumonia: Qualifiers: Laterality: right Lung location: lower lobe of lung Pneumonia type: due to unspecified organism Qualified Code(s): J18.9 - Pneumonia, unspecified organism Code(s): J18.9 - Pneumonia, unspecified organism Status: Acute Assessment and Plan: chest x-ray with patchy right mid and lower lung zone infiltrates - continue ceftriaxone and azithromycin (8) Obstructive sleep apnea: Code(s): G47.33 - Obstructive sleep apnea (adult) (pediatric) Status: Acute Assessment and Plan: currently intubated, once extubated patient may require BiPAP or CPAP. (9) DVT prophylaxis: Code(s): Z29.9 - Encounter for prophylactic measures, unspecified Status: Acute Assessment and Plan: DVT prophylaxis: Lovenox. stress ulcer prophylaxis: Protonix Additional Plan Will discuss with family code status: Full code Critical care time spent: 49 minutes Due to a high probability of clinically significant, life threatening deterioration, the patient required my highest level of preparedness to intervene emergently and I personally spent this critical care time directly and personally managing the patient. This critical care time included obtaining a history; examining the patient; pulse oximetry; ordering and review of studies; arranging urgent treatment with development of a management plan; evaluation of patient's response to treatment; frequent reassessment; and discussions with other providers. It was exclusive of separately billable procedures and treating other patients and teaching time. Please see Assessment and Plan section and the rest of the note for further information on patient assessment and treatment. Subjective Date/time seen: 01/26/20 12:41 reason for consult: Jean-Paul
[2020-01-26] MEDS: PROPOFOL IV EMULSION 100 ML 23.5 MG IV CONT ×3 (12:45→21:21)
[2020-01-26] MEDS: PANTOPRAZOLE SODIUM IV 40 MG VIAL IV PUSH (12:46)
[2020-01-26] MEDS: ALBUTEROL SULFATE NEB 2.5 MG/0.5 ML INH 15 MG INHALATION (13:16)
[2020-01-26] MEDS: IPRATROPIUM BR 0.02% INH SOLN 0.5 MG/2.5 ML VIAL 1.5 MG INHALATION (13:17)
[2020-01-26 13:55] LABS: SARS-CoV-2 RNA PCR Negative
[2020-01-26] MEDS: PHENYTOIN SODIUM INJ 100 MG/2 ML VIAL (*BKC) IV PUSH ×2 (14:31→20:31)
--- NOTE | 2020-01-26 18:40 | PM.IMPN ---
Progress Note: A&P Assessment and Plan (1) Acute on chronic respiratory failure with hypoxia and hypercapnia: Code(s): J96.21 - Acute and chronic respiratory failure with hypoxia; J96.22 - Acute and chronic respiratory failure with hypercapnia Status: Acute Assessment and Plan: Alert and oriented x4 at the time of my evaluation, with improvements and blood gases. These are currently being managed by trauma therapist whose input is appreciated. 01/26/20 18:40 Patient is 69-year-old male with long history heavy smoking history of severe COPD and hypercapnia his baseline pCO2 is close to 70, however last few days patient was more confused and desaturating at 3 L, his called the EMS upon arrival his his oxygen saturation was 82% on 3 L patient oxygen was increased to 6 L which did improve his pO2, upon arrival to emergency department was placed on BiPAP and was transferred to ICU, patient was more confused and was not able to maintain his BiPAP and patient was eventually intubated, and is found to have pneumonia there was a concern the patient may have COVID-19 and he was placed on isolation however COVID-19 was found to be negative, currently is on the vent unable to provide any history review of symptom (2) COPD exacerbation: Code(s): J44.1 - Chronic obstructive pulmonary disease with (acute) exacerbation Status: Acute Assessment and Plan: Been started on IV steroids. Albuterol MDI available. As he is COVID-19 rule out, will avoid nebulizers for now. Patient is seen trauma therapist COVID-19 is negative (3) Pneumonia: Qualifiers: Laterality: right Lung location: lower lobe of lung Pneumonia type: due to unspecified organism Qualified Code(s): J18.9 - Pneumonia, unspecified organism Code(s): J18.9 - Pneumonia, unspecified organism Status: Acute Assessment and Plan: He has been started on azithromycin and ceftriaxone. COVID-19 testing pending as detailed above. Which is negative Sputum to be attempted for culture. (4) Obstructive sleep apnea: Code(s): G47.33 - Obstructive sleep apnea (adult) (pediatric) Status: Acute Assessment and Plan: Currently on vent States compliance with such at home. (5) Hypertension: Qualifiers: Hypertension type: essential hypertension Qualified Code(s): I10 - Essential (primary) hypertension Code(s): I10 - Essential (primary) hypertension Status: Acute Assessment and Plan: Blood pressures were reviewed and they are running a bit high, and 160 systolic. Continue antihypertensives and monitor daily. (6) Seizure disorder: Code(s): G40.909 - Epilepsy, unspecified, not intractable, without status epilepticus Status: Acute Assessment and Plan: Continue phenytoin and check level in a.m. Time Spent With Patient Time with patient: 15 - 25 minutes Subjective Date/time seen: 01/26/20 18:40 Patient is 69-year-old male with long history heavy smoking history of severe COPD and hypercapnia his baseline pCO2 is close to 70, however last few days patient was more confused and desaturating at 3 L, his called the EMS upon arrival his his oxygen saturation was 82% on 3 L patient oxygen was increased to 6 L which did improve his pO2, upon arrival to emergency department was placed on BiPAP and was transferred to ICU, patient was more confused and was not able to maintain his BiPAP and patient was eventually intubated, and is found to have pneumonia there was a concern the patient may have COVID-19 and he was placed on isolation however COVID-19 was found to be negativ
[2020-01-27] VITALS (23 sets, daily range): BP systolic 106–150; BP diastolic 57–85; PULSE 51–635; RESP 14–16; TEMP 36.1–37.2; O2SAT 92–100
[2020-01-27] MEDS: PROPOFOL IV EMULSION 100 ML 29.3 MG IV CONT ×4 (01:09→21:34)
[2020-01-27] MEDS: IPRATROPIUM BR 0.02% INH SOLN 0.5 MG/2.5 ML VIAL INHALATION ×4 (02:13→20:23)
[2020-01-27] MEDS: ALBUTEROL SULFATE NEB 2.5 MG/0.5 ML INH 5 MG INHALATION ×4 (02:13→20:23)
[2020-01-27] MEDS: methylPREDNISolone SOD SUCC 125 MG VIAL 60 MG IV PUSH ×4 (02:24→20:29)
[2020-01-27 04:56] LABS: Alveolar/Arterial O2 Gradient 145.9 mmHg; Base Excess ABG 16.4 mEq/l (+/-2.0); Carboxyhemoglobin 0.5 % THb (0-2.0); Fractional Inspired Oxygen 40 %; HCO3 ABG 42.6 mEq/l (22.0-26.0); Methemoglobin ABG 0.3 %THb (0-1.5); Oxygen Content ABG 17.1 %vol (16.0-22.0); Oxygen Saturation ABG 95.3 % (95.0-100.0); PCO2 ABG 57.7 mmHg (35.0-45.0); PO2 ABG 72.9 mmHg (80.0-100.0); PO2 FiO2 Ratio Arterial Blood 1.82 %; Reduced Hemoglobin 5.2 %THb (0-5.0); Total Hemoglobin 12.9 g/dL (12.0-18.0); pH ABG 7.486 (7.350-7.450)
[2020-01-27 04:57] LABS: Hematocrit 36.7 % (42.0-52.0); Hemoglobin 11.5 g/dL (14.0-18.0); Mean Corpuscular HGB Conc 31.3 g/dl (32-36); Mean Corpuscular Volume 102.2 fl (80-100); Mean Platelet Volume 9.9 fl (7.4-10.4); Platelet Count Result 108 k/mm3 (150-375); Red Blood Count 3.59 M/mm3 (4.6-6.20); Red Cell Distribution Width 15.8 % (11.5-14.5); White Blood Count 7.1 K/mm3 (4.5-10.0)
[2020-01-27 04:57] LABS: Device VENTILATOR; Modified Allen's Test Pass; Site Drawn LEFT RADIAL
[2020-01-27 04:58] LABS: Arterial Blood Gas PEEP 5 cmH2O; Arterial Blood Gas Pressure Support 0 cmH2O; Arterial Blood Gas Tidal Volume 490 ml; Arterial Blood Gas Vent Mode CMV; Arterial Blood Gas Ventilator rate 16 /MIN
[2020-01-27] MEDS: PHENYTOIN SODIUM INJ 100 MG/2 ML VIAL (*BKC) IV PUSH ×3 (05:20→20:30)
[2020-01-27 05:22] LABS: Blood Urea Nitrogen 24 mg/dL (9-20); Calcium 8.8 mg/dL (8.4-10.2); Carbon Dioxide > 40 mmol/L (22-30); Chloride 87 mmol/L (98-107); Estimated CRCL calculation 77 ml/min; Estimated Glomerular Filt Rate > 60; Glucose 153 mg/dL (75-110); Potassium 3.5 mmol/L (3.4-5.0); Sodium 135 mmol/L (137-145)
[2020-01-27] MEDS: PROPOFOL IV EMULSION 100 ML 23.5 MG IV CONT ×2 (08:29→12:00)
[2020-01-27] MEDS: ENOXAPARIN 40 MG/0.4 ML SYRINGE SUB-Q (08:30)
[2020-01-27] MEDS: PANTOPRAZOLE SODIUM IV 40 MG VIAL IV PUSH (08:30)
--- NOTE | 2020-01-27 11:05 | PCDIET ---
Nutrition Follow-Up Complete: Nutrition Diagnosis: Inadequate oral intake related to oral intubation as evidenced by NPO status. Nutrition Goal: Patient to meet estimated nutritional needs. Goal in progress. Patient tolerating Vital at 40mL/hr (goal of 50mL/hr) with residuals 100mL and below. Last recorded weight is 93.8 kg which is decreased from last review. -I/O. Bowel Motility: No documented bowel movements. Labs Reviewed: Glu (153), BUN (24), Na (135) Meds Noted: Albuterol, Atrovent, Zithromax, Solu Medrol, IV Dilantin, Protonix, Propofol (current rate of 23.5mL/hr provides 620kcal over 24 hour period) Additional Notes: No reported skin breakdown. Tube feeding with Propofol providing 1940kcal/day. RN reports coming down on Propofol. No new recommendations at this time; would continue to advance tube feeding, as tolerated, to 50mL/hr. Nutrition Monitoring and Evaluation: Follow up every Sunday/Sunday. Follow daily in ICU rounds.
--- NOTE | 2020-01-27 12:29 | WPDINTPN ---
Progress Note: A&P Assessment and Plan (1) Acute on chronic respiratory failure with hypoxia and hypercapnia: Code(s): J96.21 - Acute and chronic respiratory failure with hypoxia; J96.22 - Acute and chronic respiratory failure with hypercapnia Status: Acute Assessment and Plan: acute on chronic hypercapnic respiratory failure likely related to COPD exacerbation, noncompliance. - Patient was on BiPAP and was switched to AVAPS, patient was not tolerating the BiPAP mask and was pulling on it. Was confused but following simple commands and answer in a question. - His baseline pCO2 seems to be in the 70s and 80s range. - Patient was intubated on 01/26/2020 as he was not moving much air, was getting confused and agitated. - Maintain O2 sats > 88% - sedated with propofol (2) COPD exacerbation: Code(s): J44.1 - Chronic obstructive pulmonary disease with (acute) exacerbation Status: Acute Assessment and Plan: Continue IV steroid, mechanical ventilation, antibiotic - patient on ceftriaxone and azithromycin - COVID19 and SArS-COV-2 PCR NEGATIVE - continue bronchodilators (3) Secondary pulmonary hypertension: Status: Acute Assessment and Plan: Likely group 3 in nature. Continue to monitor. (4) Seizure disorder: Code(s): G40.909 - Epilepsy, unspecified, not intractable, without status epilepticus Status: Acute Assessment and Plan: continue Dilantin IV (5) Hypertension: Qualifiers: Hypertension type: essential hypertension Qualified Code(s): I10 - Essential (primary) hypertension Code(s): I10 - Essential (primary) hypertension Status: Acute Assessment and Plan: hold all antihypertensives at this time (6) Suspected COVID-19 virus infection: Code(s): R68.89 - Other general symptoms and signs Status: Acute Assessment and Plan: COVID-19 test NEGATIVE. OFF contact and droplet precaution. (7) Pneumonia: Qualifiers: Laterality: right Lung location: lower lobe of lung Pneumonia type: due to unspecified organism Qualified Code(s): J18.9 - Pneumonia, unspecified organism Code(s): J18.9 - Pneumonia, unspecified organism Status: Acute Assessment and Plan: chest x-ray with patchy right mid and lower lung zone infiltrates - continue ceftriaxone and azithromycin (8) Obstructive sleep apnea: Code(s): G47.33 - Obstructive sleep apnea (adult) (pediatric) Status: Acute Assessment and Plan: currently intubated, once extubated patient may require BiPAP or CPAP. (9) DVT prophylaxis: Code(s): Z29.9 - Encounter for prophylactic measures, unspecified Status: Acute Assessment and Plan: DVT prophylaxis: Lovenox. stress ulcer prophylaxis: Protonix Additional Plan Will discuss with family code status: Full code Critical care time spent: 34 minutes Due to a high probability of clinically significant, life threatening deterioration, the patient required my highest level of preparedness to intervene emergently and I personally spent this critical care time directly and personally managing the patient. This critical care time included obtaining a history; examining the patient; pulse oximetry; ordering and review of studies; arranging urgent treatment with development of a management plan; evaluation of patient's response to treatment; frequent reassessment; and discussions with other providers. It was exclusive of separately billable procedures and treating other patients and teaching time. Please see Assessment and Plan section and the rest of the note for further information on patient assessment and treatment. Subjective Date/time seen: 01/27/20 12:29 reason for consult: Acute on chronic hypercapnic respiratory failure, pneumonia - 01/26/2020: patient intubated, central line placed 01/27/2020: Pt seen and examined.
--- NOTE | 2020-01-27 17:43 | PM.IMPN ---
Progress Note: A&P Assessment and Plan (1) Acute on chronic respiratory failure with hypoxia and hypercapnia: Code(s): J96.21 - Acute and chronic respiratory failure with hypoxia; J96.22 - Acute and chronic respiratory failure with hypercapnia Status: Acute Assessment and Plan: 01/26/20 18:40 Patient is 69-year-old male with long history heavy smoking history of severe COPD and hypercapnia his baseline pCO2 is close to 70, however last few days patient was more confused and desaturating at 3 L, his called the EMS upon arrival his his oxygen saturation was 82% on 3 L patient was eventually intubated and mechanically ventilated with further deterioration. (2) COPD exacerbation: Code(s): J44.1 - Chronic obstructive pulmonary disease with (acute) exacerbation Status: Acute Assessment and Plan: Been started on IV steroids. Albuterol MDI available. As he is COVID-19 negative, can use updrafts (3) Pneumonia: Qualifiers: Laterality: right Lung location: lower lobe of lung Pneumonia type: due to unspecified organism Qualified Code(s): J18.9 - Pneumonia, unspecified organism Code(s): J18.9 - Pneumonia, unspecified organism Status: Acute Assessment and Plan: on azithromycin and ceftriaxone. Day 3. COVID-19 testing pending as detailed above. Which is negative Sputum to be attempted for culture. So far negative (4) Obstructive sleep apnea: Code(s): G47.33 - Obstructive sleep apnea (adult) (pediatric) Status: Acute Assessment and Plan: Currently on vent (5) Hypertension: Qualifiers: Hypertension type: essential hypertension Qualified Code(s): I10 - Essential (primary) hypertension Code(s): I10 - Essential (primary) hypertension Status: Acute Assessment and Plan: Blood pressures were reviewed and they are running a bit high, and 160 systolic. Continue antihypertensives and monitor daily. (6) Seizure disorder: Code(s): G40.909 - Epilepsy, unspecified, not intractable, without status epilepticus Status: Acute Assessment and Plan: Continue phenytoin Subjective Date/time seen: 01/27/20 17:43 Interval history: Date of visit 01/26. 69-year-old white male with pneumonia and COPD on home O2 her with acute on chronic respiratory failure and now on a ventilator Exam Narrative: Exam Narrative: Flu blood pressure 130/64 pulse 60 sat 92% FiO2 of 45 of peep afebrile General: Well-nourished male . On ventilator. HEENT: Pupils reactive. Neck: Supple. Respiratory. . Diminished breath sounds at the bases with faint crackles. Cardiovascular: Regular rate and rhythm with S1-S2. Gastrointestinal: Abdomen is soft, nontender, and nondistended with positive bowel sounds. Skin: Warm and dry. Extremities: No edema. Radial and pedal pulses intact. Neurological: Sedated on a ventilator Psychiatric: Pleasant and cooperative with normal mood and affect. Objective Data Vital Signs Vital Signs: Vital Signs - 24 hr 01/26/20 19:59 01/26/20 20:00 01/26/20 20:16 Temperature 36.2 C L Pulse Rate 74 72 73 Respiratory Rate 16 16 16 Blood Pressure 121/66 Pulse Oximetry 96 96 01/26/20 22:00 01/26/20 23:18 01/26/20 23:48 Temperature 36.2 C L Pulse Rate 64 64 66 Respiratory Rate 20 16 Blood Pressure 139/71 158/81 H Pulse Oximetry 97 96 96 01/27/20 02:00 01/27/20 02:14 01/27/20 02:16 Temperature Pulse Rate 60 62 62 Respiratory Rate 16 16 Blood Pressure 131/64 Pulse Oximetry 96 96 01/27/20 04:00 01/27/20 04:08 01/27/20 06:00 Temperat
[2020-01-28] VITALS (24 sets, daily range): BP systolic 116–185; BP diastolic 58–92; PULSE 52–85; RESP 16–23; TEMP 35.6–37; O2SAT 89–100
[2020-01-28 00:04] LABS: Pneumococcal Antigen Urine Not Detected (Not Detected)
[2020-01-28] MEDS: PROPOFOL IV EMULSION 100 ML 29.3 MG IV CONT ×2 (01:03→04:38)
[2020-01-28] MEDS: ALBUTEROL SULFATE NEB 2.5 MG/0.5 ML INH 5 MG INHALATION ×4 (01:55→19:41)
[2020-01-28] MEDS: IPRATROPIUM BR 0.02% INH SOLN 0.5 MG/2.5 ML VIAL INHALATION ×4 (01:56→19:41)
[2020-01-28] MEDS: methylPREDNISolone SOD SUCC 125 MG VIAL 60 MG IV PUSH ×4 (02:02→20:33)
[2020-01-28 05:05] LABS: Alveolar/Arterial O2 Gradient 125.1 mmHg; Base Excess ABG 14.5 mEq/l (+/-2.0); Carboxyhemoglobin 0.3 % THb (0-2.0); Fractional Inspired Oxygen 40 %; HCO3 ABG 40.7 mEq/l (22.0-26.0); Methemoglobin ABG 0.3 %THb (0-1.5); Oxygen Content ABG 17.5 %vol (16.0-22.0); Oxygen Saturation ABG 97.4 % (95.0-100.0); PCO2 ABG 57.6 mmHg (35.0-45.0); PO2 ABG 93.9 mmHg (80.0-100.0); PO2 FiO2 Ratio Arterial Blood 2.35 %; Reduced Hemoglobin 3.4 %THb (0-5.0); Total Hemoglobin 12.9 g/dL (12.0-18.0); pH ABG 7.467 (7.350-7.450)
[2020-01-28 05:06] LABS: Arterial Blood Gas PEEP 5 cmH2O; Arterial Blood Gas Tidal Volume 490 ml; Arterial Blood Gas Vent Mode CMV; Arterial Blood Gas Ventilator rate 16 /MIN; Device VENTILATOR; Modified Allen's Test Unable to perform; Site Drawn RIGHT RADIAL
[2020-01-28 05:19] LABS: Hematocrit 35.7 % (42.0-52.0); Hemoglobin 11.4 g/dL (14.0-18.0); Mean Corpuscular HGB Conc 31.9 g/dl (32-36); Mean Corpuscular Hemoglobin 32.2 pg (26-34); Mean Corpuscular Volume 100.8 fl (80-100); Mean Platelet Volume 9.9 fl (7.4-10.4); Platelet Count Result 120 k/mm3 (150-375); Red Blood Count 3.54 M/mm3 (4.6-6.20); Red Cell Distribution Width 15.9 % (11.5-14.5); White Blood Count 7.4 K/mm3 (4.5-10.0)
[2020-01-28 05:38] LABS: Blood Urea Nitrogen 23 mg/dL (9-20); Calcium 8.8 mg/dL (8.4-10.2); Carbon Dioxide > 40 mmol/L (22-30); Chloride 90 mmol/L (98-107); Estimated CRCL calculation 85 ml/min; Estimated Glomerular Filt Rate > 60; Glucose 160 mg/dL (75-110); Magnesium 2.2 mg/dL (1.6-2.3); Phosphorus 4.1 mg/dL (2.5-4.5); Potassium 3.5 mmol/L (3.4-5.0); Sodium 132 mmol/L (137-145)
[2020-01-28] MEDS: PHENYTOIN SODIUM INJ 100 MG/2 ML VIAL (*BKC) IV PUSH ×3 (05:39→20:33)
--- NOTE | 2020-01-28 08:15 | WPDINTPN ---
Progress Note: A&P Assessment and Plan (1) Acute on chronic respiratory failure with hypoxia and hypercapnia: Code(s): J96.21 - Acute and chronic respiratory failure with hypoxia; J96.22 - Acute and chronic respiratory failure with hypercapnia Status: Acute Assessment and Plan: acute on chronic hypercapnic respiratory failure likely related to COPD exacerbation, noncompliance. - Patient was on BiPAP and was switched to AVAPS, patient was not tolerating the BiPAP mask and was pulling on it. Was confused but following simple commands and answer in a question. - His baseline pCO2 seems to be in the 70s and 80s range. - Patient was intubated on 01/26/2020 as he was not moving much air, was getting confused and agitated. Continue full mechanical ventilation support to prevent hypoxemia/hypercarbia and end organ damage. ABG and PCXR reviewed and will repeat in am. decrease tidal volume to 450 mL continue Bronchodilators - sedated with propofol. will start Precedex infusion to allow safe sedation holiday and breathing trial (2) COPD exacerbation: Code(s): J44.1 - Chronic obstructive pulmonary disease with (acute) exacerbation Status: Acute Assessment and Plan: Continue IV steroid, mechanical ventilation, antibiotic - patient on ceftriaxone and azithromycin - COVID19 and SArS-COV-2 PCR NEGATIVE - continue bronchodilators (3) Seizure disorder: Code(s): G40.909 - Epilepsy, unspecified, not intractable, without status epilepticus Status: Acute Assessment and Plan: continue Dilantin IV (4) Hypertension: Qualifiers: Hypertension type: essential hypertension Qualified Code(s): I10 - Essential (primary) hypertension Code(s): I10 - Essential (primary) hypertension Status: Acute Assessment and Plan: hold all antihypertensives at this time treat p.r.n. as needed (5) Suspected COVID-19 virus infection: Code(s): R68.89 - Other general symptoms and signs Status: Acute Assessment and Plan: COVID-19 test NEGATIVE. OFF contact and droplet precaution. (6) Pneumonia: Qualifiers: Laterality: right Lung location: lower lobe of lung Pneumonia type: due to unspecified organism Qualified Code(s): J18.9 - Pneumonia, unspecified organism Code(s): J18.9 - Pneumonia, unspecified organism Status: Acute Assessment and Plan: chest x-ray with patchy right mid and lower lung zone infiltrates - continue ceftriaxone and azithromycin (7) Obstructive sleep apnea: Code(s): G47.33 - Obstructive sleep apnea (adult) (pediatric) Status: Acute Assessment and Plan: currently intubated, once extubated patient may require BiPAP or CPAP. (8) DVT prophylaxis: Code(s): Z29.9 - Encounter for prophylactic measures, unspecified Status: Acute Assessment and Plan: DVT prophylaxis: Lovenox. stress ulcer prophylaxis: Protonix Additional Plan Nutrition - Tube Feeds Code Status - Full Code Critical care time spent: 32 minutes Due to a high probability of clinically significant, life threatening deterioration, the patient required my highest level of preparedness to intervene emergently and I personally spent this critical care time directly and personally managing the patient. This critical care time included obtaining a history; examining the patient; pulse oximetry; ordering and review of studies; arranging urgent treatment with development of a management plan; evaluation of patient's response to treatment; frequent reassessment; and discussions with other providers. It was exclusive of separately billable procedures and treating other patients and teaching time. Please see Assessment and Plan section and the rest of the note for further information on patient assessment and treatment. Subjective Date/time seen: 01/28/20 0815 Overnight events reviewed Afebrile Co
[2020-01-28] MEDS: PROPOFOL IV EMULSION 100 ML 23.5 MG IV CONT (09:06)
[2020-01-28] MEDS: PANTOPRAZOLE SODIUM IV 40 MG VIAL IV PUSH (09:16)
[2020-01-28] MEDS: ENOXAPARIN 40 MG/0.4 ML SYRINGE SUB-Q (09:17)
--- NOTE | 2020-01-28 10:36 | PCDIET ---
ICU Rounding Note: Patient tolerating Vital 1.2 at 50mL/hr goal rate. Residuals 175mL and below. Goal tube feeding x 22 hours/day with current Propofol infusion providing 1940kcal and 82g protein daily. Last recorded weight is 93.1kg which is stable. Bowel Motility: No reported bowel movement. Labs Reviewed: Glu (160), BUN (23), Na (132) Meds Noted: Albuterol, Atrovent, Zithromax, Solu Medrol, Rocephin, Protonix, Precedex, IV Dilantin, Propofol (current rate of 23.5mL/hr provides 620kcal over 24 hour period) Additional Notes: No documented skin breakdown. Recommend continuing present tube feeding. Following daily in ICU rounds. Assessing/reassessing every Sunday and Sunday.
[2020-01-28] MEDS: FUROSEMIDE INJ 40 MG/4 ML VIAL IV PUSH (11:51)
[2020-01-28 11:57] LABS: Glucose Point of Care 130 (65-105)
[2020-01-28 13:46] LABS: Alveolar/Arterial O2 Gradient 128.4 mmHg; Base Excess ABG 14.4 mEq/l (+/-2.0); Fractional Inspired Oxygen 40 %; HCO3 ABG 41.2 mEq/l (22.0-26.0); Oxygen Content ABG 17.9 %vol (16.0-22.0); Oxygen Saturation ABG 96.6 % (95.0-100.0); Oxyhemoglobin 95.2 % THb (90.0-100.0); PO2 ABG 86.5 mmHg (80.0-100.0); PO2 FiO2 Ratio Arterial Blood 2.16 %; Total Hemoglobin 13.3 g/dL (12.0-18.0); pH ABG 7.447 (7.350-7.450)
[2020-01-28 13:47] LABS: Device VENTILATOR; Modified Allen's Test Pass; PCO2 ABG 61.1 mmHg (35.0-45.0); Site Drawn LEFT RADIAL
[2020-01-28 13:48] LABS: Arterial Blood Gas Minute Volume 0 LPM; Arterial Blood Gas PEEP 5 cmH2O; Arterial Blood Gas Pressure Support 5 cmH2O; Arterial Blood Gas Tidal Volume 0 ml; Arterial Blood Gas Vent Mode SPONTANEOUS; Arterial Blood Gas Ventilator rate 0 /MIN; Peak Inspiratory Pressure 0 cmH2O
--- NOTE | 2020-01-28 13:49 | PM.EVENT ---
Event Note Event Note Event Note: 5/5 PSV SBT done for more than 1 hour. RSBI, ABGI and Vitals acceptable. Pt awake and following commands. Will extubate and monitor. NPO for now. Bipap PRN
--- NOTE | 2020-01-28 16:36 | PM.IMPN ---
Progress Note: A&P Assessment and Plan (1) Acute on chronic respiratory failure with hypoxia and hypercapnia: Code(s): J96.21 - Acute and chronic respiratory failure with hypoxia; J96.22 - Acute and chronic respiratory failure with hypercapnia Status: Acute Assessment and Plan: Patient is 69-year-old male with long history heavy smoking history of severe COPD and hypercapnia his baseline pCO2 is close to 70, however last few days prior to admission patient was more confused and desaturating at 3 L, his called the EMS upon arrival his his oxygen saturation was 82% on 3 L patient was eventually intubated and mechanically ventilated with further deterioration. Has steadily improved spontaneous breathing trial planned for today (2) COPD exacerbation: Code(s): J44.1 - Chronic obstructive pulmonary disease with (acute) exacerbation Status: Acute Assessment and Plan: on IV steroids. Albuterol MDI available. As he is COVID-19 negative, can use updrafts (3) Pneumonia: Qualifiers: Laterality: right Lung location: lower lobe of lung Pneumonia type: due to unspecified organism Qualified Code(s): J18.9 - Pneumonia, unspecified organism Code(s): J18.9 - Pneumonia, unspecified organism Status: Acute Assessment and Plan: on azithromycin and ceftriaxone. Day 4. COVID-19 testing is negative Sputum to be attempted for culture. So far negative BC negative (4) Obstructive sleep apnea: Code(s): G47.33 - Obstructive sleep apnea (adult) (pediatric) Status: Acute Assessment and Plan: Currently on vent (5) Hypertension: Qualifiers: Hypertension type: essential hypertension Qualified Code(s): I10 - Essential (primary) hypertension Code(s): I10 - Essential (primary) hypertension Status: Acute Assessment and Plan: Blood pressures were reviewed and they are running a bit high, and 160 systolic. Continue antihypertensives and monitor daily. (6) Seizure disorder: Code(s): G40.909 - Epilepsy, unspecified, not intractable, without status epilepticus Status: Acute Assessment and Plan: Continue phenytoin Subjective Date/time seen: 01/28/20 16:36 Interval history: Date of visit 01/27. 69-year-old white male with pneumonia and COPD on home O2 her with acute on chronic respiratory failure and now on a ventilator, off some sedation and awake and alert Exam Narrative: Exam Narrative: Flu blood pressure 144/62 pulse 52 sat 95% FiO2 of 44 afebrile General: Well-nourished male . On ventilator. HEENT: Pupils reactive. Neck: Supple. Respiratory. . Diminished breath sounds at the bases with faint crackles. Cardiovascular: Regular rate and rhythm with S1-S2. Gastrointestinal: Abdomen is soft, nontender, and nondistended with positive bowel sounds. Skin: Warm and dry. Extremities: No edema. Radial and pedal pulses intact. Neurological: on a ventilator and moving all extremities now Psychiatric: Coming off sedation Objective Data Vital Signs Vital Signs: Vital Signs - 24 hr 01/27/20 17:15 01/27/20 18:00 01/27/20 20:00 Temperature 36.1 C L Pulse Rate 58 L 61 56 L Respiratory Rate 16 16 Blood Pressure 106/76 119/57 L Pulse Oximetry 94 96 95 01/27/20 20:24 01/27/20 20:55 01/27/20 21:46 Temperature Pulse Rate 54 L 51 L 54 L Respiratory Rate 16 16 16 Blood Pressure 118/61 Pulse Oximetry 95 97 01/27/20 23:35 01/28/20 00:00 01/28/20 01:56 Temperature 36.1 C L Pulse Rate 58 L 54 L 52 L Respiratory Rate 16 Blood Pressure 128/63
[2020-01-28 18:00] LABS: Glucose Point of Care 144 (65-105)
[2020-01-28 18:28] LABS: Legionella pneumophila Ag Ur Not Detected (Not Detected)
--- NOTE | 2020-01-28 23:18 | PC.NURSE ---
pt. did not want his blood sugar taken tonight due to pt. states he is not a diabetic. Will check blood sugar with am blood draws.
[2020-01-29] VITALS (26 sets, daily range): BP systolic 135–183; BP diastolic 60–91; PULSE 58–82; RESP 14–24; TEMP 36–37.2; O2SAT 86–97
[2020-01-29] MEDS: ALBUTEROL SULFATE NEB 2.5 MG/0.5 ML INH 5 MG INHALATION ×4 (01:46→20:37)
[2020-01-29] MEDS: IPRATROPIUM BR 0.02% INH SOLN 0.5 MG/2.5 ML VIAL INHALATION ×4 (01:46→20:38)
[2020-01-29] MEDS: methylPREDNISolone SOD SUCC 125 MG VIAL 60 MG IV PUSH ×4 (02:16→20:46)
[2020-01-29] MEDS: ACETAMINOPHEN 500 MG TABLET 1000 MG PO (02:17)
[2020-01-29] MEDS: PHENYTOIN SODIUM INJ 100 MG/2 ML VIAL (*BKC) IV PUSH ×2 (05:21→15:06)
[2020-01-29 05:54] LABS: Hematocrit 39.9 % (42.0-52.0); Hemoglobin 12.8 g/dL (14.0-18.0); Mean Corpuscular HGB Conc 32.1 g/dl (32-36); Mean Corpuscular Hemoglobin 32.2 pg (26-34); Mean Corpuscular Volume 100.5 fl (80-100); Mean Platelet Volume 9.9 fl (7.4-10.4); Platelet Count Result 137 k/mm3 (150-375); Red Blood Count 3.97 M/mm3 (4.6-6.20); Red Cell Distribution Width 15.8 % (11.5-14.5)
[2020-01-29 06:01] LABS: Potassium 3.7 mmol/L (3.4-5.0)
[2020-01-29 06:08] LABS: Blood Urea Nitrogen 27 mg/dL (9-20); Calcium 8.9 mg/dL (8.4-10.2); Carbon Dioxide > 40 mmol/L (22-30); Chloride 94 mmol/L (98-107); Estimated CRCL calculation 85 ml/min; Estimated Glomerular Filt Rate > 60; Glucose 114 mg/dL (75-110); Magnesium 2.1 mg/dL (1.6-2.3); Phosphorus 5.2 mg/dL (2.5-4.5); Sodium 137 mmol/L (137-145)
--- NOTE | 2020-01-29 07:50 | WPDINTPN ---
Progress Note: A&P Assessment and Plan (1) Acute on chronic respiratory failure with hypoxia and hypercapnia: Code(s): J96.21 - Acute and chronic respiratory failure with hypoxia; J96.22 - Acute and chronic respiratory failure with hypercapnia Status: Acute Assessment and Plan: acute on chronic hypercapnic respiratory failure likely related to COPD exacerbation, noncompliance. - Patient was on BiPAP and was switched to AVAPS, patient was not tolerating the BiPAP mask and was pulling on it. Was confused but following simple commands and answer in a question. - His baseline pCO2 seems to be in the 70s and 80s range. - Patient was intubated on 01/26/2020 as he was not moving much air, was getting confused and agitated. - 01/27 patient was extubated after a successful weaning trial. Patient has done well overnight and wore BiPAP tonight and is now on nasal cannula. ABG and PCXR reviewed continue Bronchodilators continue BiPAP at night and p.r.n. - patient was given Lasix 40 mg IV x1 yesterday. will repeat another dose today (2) COPD exacerbation: Code(s): J44.1 - Chronic obstructive pulmonary disease with (acute) exacerbation Status: Acute Assessment and Plan: Continue IV steroid, mechanical ventilation, antibiotic - patient on ceftriaxone and azithromycin - COVID19 and SArS-COV-2 PCR NEGATIVE - continue bronchodilators (3) Seizure disorder: Code(s): G40.909 - Epilepsy, unspecified, not intractable, without status epilepticus Status: Acute Assessment and Plan: continue Dilantin IV will check level in the morning (4) Hypertension: Qualifiers: Hypertension type: essential hypertension Qualified Code(s): I10 - Essential (primary) hypertension Code(s): I10 - Essential (primary) hypertension Status: Acute Assessment and Plan: hold all antihypertensives at this time treat p.r.n. as needed (5) Suspected COVID-19 virus infection: Code(s): R68.89 - Other general symptoms and signs Status: Acute Assessment and Plan: COVID-19 test NEGATIVE. OFF contact and droplet precaution. (6) Pneumonia: Qualifiers: Laterality: right Lung location: lower lobe of lung Pneumonia type: due to unspecified organism Qualified Code(s): J18.9 - Pneumonia, unspecified organism Code(s): J18.9 - Pneumonia, unspecified organism Status: Acute Assessment and Plan: chest x-ray with patchy right mid and lower lung zone infiltrates - continue ceftriaxone and azithromycin (7) Obstructive sleep apnea: Code(s): G47.33 - Obstructive sleep apnea (adult) (pediatric) Status: Acute Assessment and Plan: currently intubated, once extubated patient may require BiPAP or CPAP. (8) DVT prophylaxis: Code(s): Z29.9 - Encounter for prophylactic measures, unspecified Status: Acute Assessment and Plan: DVT prophylaxis: Lovenox. stress ulcer prophylaxis: Protonix Additional Plan Nutrition - Advance diet Incentive spirometry PT consult Code Status - Full Code Transfer out of ICU today Subjective Date/time seen: 01/29/20 0750 Interval history: Date of visit 01/27. 69-year-old white male with pneumonia and COPD on home O2 her with acute on chronic respiratory failure requiring mechanical ventilation. Patient was extubated yesterday after a successful weaning trial. Patient has done well overnight and wore BiPAP tonight and is now on nasal cannula. He feels much better and denies any shortness of breath or respiratory distress. He does admit to having cough productive but is unable to tell me the color of the sputum. He denies any chest pain fever or shortness of breath Review of Systems Constitutional: Constitutional: Reports weakness Eyes: Eyes: Reports no additional eye complaints ENT: Reports system reviewed and no additional complaints, excep
[2020-01-29] MEDS: FUROSEMIDE INJ 40 MG/4 ML VIAL IV PUSH (08:12)
[2020-01-29] MEDS: PANTOPRAZOLE SODIUM IV 40 MG VIAL IV PUSH (08:15)
[2020-01-29] MEDS: ENOXAPARIN 40 MG/0.4 ML SYRINGE SUB-Q (08:15)
--- NOTE | 2020-01-29 10:13 | PCDIET ---
Nutrition Follow-Up Complete: Nutrition Diagnosis: Inadequate oral intake related to oral intubation as evidenced by NPO status. Nutrition Goal: Patient to meet estimated nutritional needs. Goal not met. However, MD notes suggest plan to advance diet today. Patient extubated 01/28/20. Last recorded weight is 92.9 kg which is stable. -I/O noted. Bowel Motility: No documented bowel movements. Labs Reviewed: Glu (114), BUN (27), PO4 (5.2) Meds Noted: Albuterol, Zithromax, Rocephin, Novolog, Atrovent, Protonix, Solu Medrol, IV Dilantin Additional Notes: No documented skin breakdown. Agree with diet advancement as tolerated. Will follow closely to ensure tolerance/adequate intake. If medically appropriate, would consider medication to promote BM. Nutrition Monitoring and Evaluation: Follow up every 3 days.
[2020-01-29 13:35] LABS: Glucose Point of Care 196 (65-105)
--- NOTE | 2020-01-29 16:34 | PM.IMPN ---
Progress Note: A&P Assessment and Plan (1) Acute on chronic respiratory failure with hypoxia and hypercapnia: Code(s): J96.21 - Acute and chronic respiratory failure with hypoxia; J96.22 - Acute and chronic respiratory failure with hypercapnia Status: Acute Assessment and Plan: Patient is 69-year-old male with long history heavy smoking history of severe COPD and hypercapnia his baseline pCO2 is close to 70, however last few days prior to admission patient was more confused and desaturating at 3 L, his called the EMS upon arrival his his oxygen saturation was 82% on 3 L patient was eventually intubated and mechanically ventilated with further deterioration. Has steadily improved and extubated 01/28 PM and now sat 90% 4L NC (2) COPD exacerbation: Code(s): J44.1 - Chronic obstructive pulmonary disease with (acute) exacerbation Status: Acute Assessment and Plan: on IV steroids tapering to q12h. Albuterol MDI available. As he is COVID-19 negative, can use updrafts (3) Pneumonia: Qualifiers: Laterality: right Lung location: lower lobe of lung Pneumonia type: due to unspecified organism Qualified Code(s): J18.9 - Pneumonia, unspecified organism Code(s): J18.9 - Pneumonia, unspecified organism Status: Acute Assessment and Plan: on azithromycin and ceftriaxone. Day 5. COVID-19 testing is negative Sputum to be attempted for culture. So far negative BC negative (4) Obstructive sleep apnea: Code(s): G47.33 - Obstructive sleep apnea (adult) (pediatric) Status: Acute Assessment and Plan: apparently noncomplliant at home (5) Hypertension: Qualifiers: Hypertension type: essential hypertension Qualified Code(s): I10 - Essential (primary) hypertension Code(s): I10 - Essential (primary) hypertension Status: Acute Assessment and Plan: Blood pressures were reviewed and they are running a bit high, and 160 systolic. restart richard (6) Seizure disorder: Code(s): G40.909 - Epilepsy, unspecified, not intractable, without status epilepticus Status: Acute Assessment and Plan: Continue phenytoin , now po (7) Thrombocytopenia: Code(s): D69.6 - Thrombocytopenia, unspecified Status: Acute Assessment and Plan: probable secondary to infectious process. up to 137K today and continuing lovenox Subjective Date/time seen: 01/29/20 16:34 Interval history: Date of visit 01/28. 69-year-old white male with pneumonia and COPD on home O2 her with acute on chronic respiratory failure, extubated 01/28, off some sedation and awake and alert. with no complaints Exam Narrative: Exam Narrative: Flu blood pressure 160/80 pulse 78 sat 92% 4 L afebrile General: Well-nourished male . . HEENT: Pupils reactive. Neck: Supple. Respiratory. . Diminished breath sounds at the bases with faint rhonchi Cardiovascular: Regular rate and rhythm with S1-S2. Gastrointestinal: Abdomen is soft, nontender, and nondistended with positive bowel sounds. Skin: Warm and dry. Extremities: No edema. Radial and pedal pulses intact. Neurological: No focal deficits Psychiatric: alert and appropriate Objective Data Vital Signs Vital Signs: Vital Signs - 24 hr 01/28/20 18:00 01/28/20 19:44 01/28/20 19:45 Temperature Pulse Rate 82 64 64 Pulse Rate [With Activity During Therapy Session] Respiratory Rate 20 18 18 Blood Pressure 168/74 H Pulse Oximetry 92 90 Pulse Oximetry [With Activity During Therapy Session] 01/28/20 19:51 01/28/20 20:00 01/28/20 22
[2020-01-29] MEDS: NEOMYCIN/POLYMYXIN/BACITRACIN OINTMENT PACKET 1 PACKET (17:33)
[2020-01-29] MEDS: PHENYTOIN SODIUM 100 MG CAP 200 MG PO ×2 (17:33→20:46)
[2020-01-29 17:41] LABS: Glucose Point of Care 90 (65-105)
--- NOTE | 2020-01-29 18:18 | PCDIET ---
Transfer received from ICU. Report received from ZEESHAN Luong.
--- NOTE | 2020-01-29 18:27 | PC.NURSE ---
This patient, Quentin Zavaleta, was transferred to [ [facility]] on 01/29/20 at 1820. Personal belongings sent with patient. Belongings list checked and signed with receiving [ ]. Report given to [ sofy]. Appropriate documentation sent with patient.
[2020-01-29] MEDS: FAMOTIDINE 20 MG TABLET PO (20:46)
[2020-01-30] VITALS (17 sets, daily range): BP systolic 127–157; BP diastolic 52–67; PULSE 60–78; RESP 16–24; TEMP 36.3–36.7; O2SAT 94–99
[2020-01-30] MEDS: ALBUTEROL SULFATE NEB 2.5 MG/0.5 ML INH 5 MG INHALATION ×4 (01:52→19:45)
[2020-01-30] MEDS: IPRATROPIUM BR 0.02% INH SOLN 0.5 MG/2.5 ML VIAL INHALATION ×4 (01:52→19:45)
[2020-01-30 05:47] LABS: Phenytoin Dilantin 4 ug/mL (10-20)
[2020-01-30 05:51] LABS: Blood Urea Nitrogen 35 mg/dL (9-20); Calcium 8.9 mg/dL (8.4-10.2); Carbon Dioxide 39 mmol/L (22-30); Chloride 95 mmol/L (98-107); Estimated CRCL calculation 85 ml/min; Estimated Glomerular Filt Rate > 60; Glucose 98 mg/dL (75-110); Sodium 137 mmol/L (137-145)
[2020-01-30 05:56] LABS: Hematocrit 43.8 % (42.0-52.0); Hemoglobin 13.7 g/dL (14.0-18.0); Mean Corpuscular HGB Conc 31.3 g/dl (32-36); Mean Corpuscular Hemoglobin 31.7 pg (26-34); Mean Corpuscular Volume 101.4 fl (80-100); Mean Platelet Volume 9.7 fl (7.4-10.4); Platelet Count Result 132 k/mm3 (150-375); Red Blood Count 4.32 M/mm3 (4.6-6.20); Red Cell Distribution Width 15.9 % (11.5-14.5); White Blood Count 8.1 K/mm3 (4.5-10.0)
[2020-01-30 07:24] LABS: Phosphorus 4.7 mg/dL (2.5-4.5)
[2020-01-30 07:25] LABS: Magnesium 2.2 mg/dL (1.6-2.3)
[2020-01-30] MEDS: ATORVASTATIN 20 MG TABLET PO (08:08)
[2020-01-30] MEDS: BICALUTAMIDE (*CHEMO) 50 MG TABLET PO (08:08)
[2020-01-30] MEDS: ENOXAPARIN 40 MG/0.4 ML SYRINGE SUB-Q (08:08)
[2020-01-30] MEDS: lisinopriL 10 MG TABLET PO (08:08)
[2020-01-30] MEDS: ASPIRIN 81 MG ENTERIC TABLET PO (08:08)
[2020-01-30] MEDS: methylPREDNISolone SOD SUCC 125 MG VIAL 60 MG IV PUSH (08:09)
[2020-01-30] MEDS: PANTOPRAZOLE SODIUM IV 40 MG VIAL IV PUSH (08:09)
[2020-01-30] MEDS: PHENYTOIN SODIUM 100 MG CAP 200 MG PO ×4 (08:09→20:44)
--- NOTE | 2020-01-30 15:28 | PM.IMPN ---
Progress Note: A&P Assessment and Plan (1) Acute on chronic respiratory failure with hypoxia and hypercapnia: Code(s): J96.21 - Acute and chronic respiratory failure with hypoxia; J96.22 - Acute and chronic respiratory failure with hypercapnia Status: Acute Assessment and Plan: Patient is 69-year-old male with long history heavy smoking history of severe COPD and hypercapnia his baseline pCO2 is close to 70, however last few days prior to admission patient was more confused and desaturating at 3 L, his called the EMS upon arrival his his oxygen saturation was 82% on 3 L patient was eventually intubated and mechanically ventilated with further deterioration. Has steadily improved and extubated 01/27 PM and now sat 98% 3L NC (2) COPD exacerbation: Code(s): J44.1 - Chronic obstructive pulmonary disease with (acute) exacerbation Status: Acute Assessment and Plan: on IV steroids tapering to po this pm. Albuterol MDI available. As he is COVID-19 negative, can use updrafts (3) Pneumonia: Qualifiers: Laterality: right Lung location: lower lobe of lung Pneumonia type: due to unspecified organism Qualified Code(s): J18.9 - Pneumonia, unspecified organism Code(s): J18.9 - Pneumonia, unspecified organism Status: Acute Assessment and Plan: on azithromycin and ceftriaxone. Day 6. COVID-19 testing is negative Sputum to be attempted for culture. So far negative BC negative (4) Obstructive sleep apnea: Code(s): G47.33 - Obstructive sleep apnea (adult) (pediatric) Status: Acute Assessment and Plan: apparently noncomplliant at home (5) Hypertension: Qualifiers: Hypertension type: essential hypertension Qualified Code(s): I10 - Essential (primary) hypertension Code(s): I10 - Essential (primary) hypertension Status: Acute Assessment and Plan: Blood pressures better after restarting richard 01/28 restart richard (6) Seizure disorder: Code(s): G40.909 - Epilepsy, unspecified, not intractable, without status epilepticus Status: Acute Assessment and Plan: Continue phenytoin , now po (7) Thrombocytopenia: Code(s): D69.6 - Thrombocytopenia, unspecified Status: Acute Assessment and Plan: probable secondary to infectious process. up to 132K today and continuing lovenox Subjective Date/time seen: 01/30/20 15:28 Interval history: Date of visit 01/29. 69-year-old white male with pneumonia and COPD on home O2 her with acute on chronic respiratory failure, extubated 01/28, off sedation and awake and alert. with no complaints. Feeling stronger Exam Narrative: Exam Narrative: Flu blood pressure 138/66 pulse 64 sat 98% 3 L afebrile . . HEENT: Pupils reactive.sclera anicteric Neck: Supple. Respiratory. . Diminished breath sounds at the bases with faint crackle R post base Cardiovascular: Regular rate and rhythm with S1-S2. Gastrointestinal: Abdomen is soft, nontender, and nondistended with positive bowel sounds. Skin: Warm and dry. Extremities: No edema. Radial and pedal pulses intact. Neurological: No focal deficits Psychiatric: alert and appropriate Objective Data Vital Signs Vital Signs: Vital Signs - 24 hr 01/29/20 16:00 01/29/20 18:00 01/29/20 20:39 Temperature 36.7 C Pulse Rate 68 70 65 Respiratory Rate 18 16 20 Blood Pressure 135/91 H 183/81 H Pulse Oximetry 91 97 01/29/20 20:42 01/29/20 20:48 01/29/20 20:59 Temperature 36.9 C Pulse Rate 64 66 Respiratory Rate 20 20 Blood Pressure 161/62 H Pulse Oximetry
--- NOTE | 2020-01-30 16:08 | PCDIET ---
Nutrition Follow-Up Complete: Inadequate oral intake related to oral intubation as evidenced by NPO status. Patient to meet estimated nutritional needs. Goal:Progressing towards goal. Continue current goal. Pt current nutrition is 4gm Na. Nutrition recommendation: Agree Last recorded weight is 88.6 kg. Bowel Motility: No BM yet since admit01/25. Just starting to eat per pt. Recommend magnesium citrate if no BM tomorrow Labs Reviewed:PO4 4.7, BUN 35 Meds Noted:Protonix Additional Notes: Pt extubated 01/27. No PO intakes documented but pt states he ate a large breakfast and lunch. Pt declined need for oral supplements. No BM since admit. Recommend mg citrate if no BM tomorrow. Wt is down to 88.6kg from admit wt of 97.8kg. We will continue to monitor for adequate intake, BM, and steady wt every five days.
[2020-01-30] MEDS: predniSONE 20 MG, predniSONE 10 MG 30 MG PO (16:47)
[2020-01-30] MEDS: FAMOTIDINE 20 MG TABLET PO (20:44)
[2020-01-30] MEDS: ACETAMINOPHEN 500 MG TABLET 1000 MG PO (20:56)
[2020-01-31] VITALS (9 sets, daily range): BP systolic 134; BP diastolic 58; PULSE 63–70; RESP 20–24; TEMP 36.6; O2SAT 94–96
[2020-01-31] MEDS: IPRATROPIUM BR 0.02% INH SOLN 0.5 MG/2.5 ML VIAL INHALATION ×3 (01:41→13:46)
[2020-01-31] MEDS: ALBUTEROL SULFATE NEB 2.5 MG/0.5 ML INH 5 MG INHALATION ×3 (01:41→13:46)
[2020-01-31] MEDS: PHENYTOIN SODIUM 100 MG CAP 200 MG PO ×2 (09:52→12:19)
[2020-01-31] MEDS: BICALUTAMIDE (*CHEMO) 50 MG TABLET PO (09:53)
[2020-01-31] MEDS: ATORVASTATIN 20 MG TABLET PO (09:53)
[2020-01-31] MEDS: lisinopriL 10 MG TABLET PO (09:53)
[2020-01-31] MEDS: ENOXAPARIN 40 MG/0.4 ML SYRINGE SUB-Q (09:53)
[2020-01-31] MEDS: ASPIRIN 81 MG ENTERIC TABLET PO (09:54)
[2020-01-31] MEDS: PANTOPRAZOLE SODIUM IV 40 MG VIAL IV PUSH (09:54)
[2020-01-31] MEDS: predniSONE 20 MG, predniSONE 10 MG 30 MG PO (11:06)
--- NOTE | 2020-01-31 18:09 | PM.DS ---
DS: Diagnosis Admitting Diagnosis Admitting Diagnosis: Acute and chronic respiratory failure with hypoxia Discharge Diagnosis (1) Acute on chronic respiratory failure with hypoxia and hypercapnia: Code(s): J96.21 - Acute and chronic respiratory failure with hypoxia; J96.22 - Acute and chronic respiratory failure with hypercapnia Status: Acute Assessment and Plan: Patient is 69-year-old male with long history heavy smoking history of severe COPD and hypercapnia his baseline pCO2 is close to 70, however last few days prior to admission patient was more confused and desaturating at 3 L, his called the EMS upon arrival his his oxygen saturation was 82% on 3 L patient was eventually intubated and mechanically ventilated with further deterioration. Has steadily improved and extubated 01/27 PM and now sat 94% 3L NC at time of discharge (2) COPD exacerbation: Code(s): J44.1 - Chronic obstructive pulmonary disease with (acute) exacerbation Status: Acute Assessment and Plan: Tapered to p.o. steroids before discharge and will have short course of tapering at home Albuterol MDI available. was COVID-19 negative (3) Pneumonia: Qualifiers: Laterality: right Lung location: lower lobe of lung Pneumonia type: due to unspecified organism Qualified Code(s): J18.9 - Pneumonia, unspecified organism Code(s): J18.9 - Pneumonia, unspecified organism Status: Acute Assessment and Plan: Completed 7 day course of azithromycin and ceftriaxone. COVID-19 testing was negative Sputum to be attempted for culture. So far negative BC negative (4) Obstructive sleep apnea: Code(s): G47.33 - Obstructive sleep apnea (adult) (pediatric) Status: Acute Assessment and Plan: apparently noncomplliant at home (5) Hypertension: Qualifiers: Hypertension type: essential hypertension Qualified Code(s): I10 - Essential (primary) hypertension Code(s): I10 - Essential (primary) hypertension Status: Acute Assessment and Plan: Restarted days and continue at home (6) Seizure disorder: Code(s): G40.909 - Epilepsy, unspecified, not intractable, without status epilepticus Status: Acute Assessment and Plan: Continue phenytoin po at discharge not active problem while here (7) Thrombocytopenia: Code(s): D69.6 - Thrombocytopenia, unspecified Status: Acute Assessment and Plan: probable secondary to infectious process. up to 132K date prior to discharge and had nadired at 108 DS: Summary Hospital Course Hospital Course: 69-year-old white male COPD home O2 presented with progressive shortness of breath and found to be in respiratory failure necessitating intubation. His mechanically ventilated from 01/24-01/27 and did well post extubation. By time of discharge saturating 94% on 3 L his usual O2 rated home. Chest x-ray revealed right middle lobe infiltrate and receive 7 days ceftriaxone and azithromycin. COVID testing was negative. He was ambulating in halls with physical therapy by discharge Follow-up with his primary care within the next 2 weeks and will have a repeat chest x-ray in the future Time Spent with Patient Time attestation: Total time spent providing and/or coordinating discharge services: 35 minutes Exam Narrative: Exam Narrative: Condition on discharge Blood pressure 134/50 D 8 pulse is 66 saturating 94% on 3 L cannula Lungs prolonged expiratory phase but no wheezing very faint crackle right posterior base CV regular rate rhythm no murmurs Abdomen soft nontender Extremities without kim
[2020-02-01 21:53] LABS: Phenytoin Dilantin Free 0.6 mg/L (1.0-2.0)
== END 2020-01-31 14:50 | disposition home health service (06) | DRG 208 ==
LOC: ANHED 13:09 → ANHICU 15:12 → ANH3MED 01-29 22:33 → ANHICU 02-03 13:29
PROVIDERS: Internal Medicine; Internal Medicine Critical Care Medicine; Physician Assistant; Admitting Provider Internal Medicine; Emergency Provider Emergency Medicine; PCP Student in an Organized Health Care Education/Training Program; Visit Provider Internal Medicine
DX: J18.9 Pneumonia, unspecified organism (principal); J96.21 Acute and chronic respiratory failure with hypoxia; J96.22 Acute and chronic respiratory failure with hypercapnia; J44.1 Chronic obstructive pulmonary disease with (acute) exacerbation; J44.0 Chronic obstructive pulmonary disease with (acute) lower respiratory infection; Z20.828 Contact with and (suspected) exposure to other viral communicable diseases; G47.33 Obstructive sleep apnea (adult) (pediatric); G40.909 Epilepsy, unspecified, not intractable, without status epilepticus; D69.59 Other secondary thrombocytopenia; I10 Essential (primary) hypertension; E78.5 Hyperlipidemia, unspecified; I73.9 Peripheral vascular disease, unspecified; D53.9 Nutritional anemia, unspecified; I27.20 Pulmonary hypertension, unspecified; Z99.81 Dependence on supplemental oxygen; Z87.891 Personal history of nicotine dependence; Z85.46 Personal history of malignant neoplasm of prostate; Z79.82 Long term (current) use of aspirin
CPT/HCPCS: 31500; 36415; 36600; 71045; 80048; 80053; 80185; 80186; 82375; 82805; 83050; 83605; 83735; 83880; 84100; 85025; 85027; 85055; 87040; 87070; 87077; 87086; 87184; 87186; 87205; 87449; 87635; 87899; 93005; 94002; 94003; 94640; 96365; 96375; 97110; 97116; 97162; 97165; 97530; 99291; A9270; C1751; C9113; J0456; J0696; J1165; J1650; J1940; J2250; J2704; J2930; J7512; U0003

== ENCOUNTER 2020-03-09 10:22 | Outpatient (CLI) | payer MEDICARE, SELFPAY ==
--- NOTE | ~2020-03-09 | CT_ITS ---
EXAMINATION: CTA abdomen pelvis EXAM DATE: 03/09/2020 11:07 INDICATION: Abdominal aortic aneurysm follow-up. History of prostate cancer. TECHNIQUE: Spiral CT of the abdomen and pelvis was performed following intravenous injection of 100 m L Omnipaque 350. Axial, coronal and sagittal images were reviewed. The dose-length product (DLP) fo r this examination was 1862.20 mGy-cm. The exposure was tailored according to patient size (auto mA exposure control), and iterative reconstruction (ASIR) was used as additional dose reduction techniqu e. There is no prior study for comparison. Correlation was made with lumbar spine MR 05/03/2019. FINDINGS: Abdominal aortic aneurysm has an aortobiiliac stent. The aneurysm measures 4.0 x 3.7 cm. Ot herwise moderate scattered arteriosclerotic disease. There is no evidence of endoleak. There are scattered liver and splenic calcified granulomas. Spleen, adrenal glands, pancreas are un remarkable. There are gallstones within an otherwise unremarkable gallbladder. No evidence of obstru ctive biliary disease. Portal and splenic veins are patent. Kidneys enhance symmetrically. There i s no hydronephrosis. There is no nephrolithiasis. The prostate is unremarkable. The bladder is unre markable. There is no retroperitoneal or pelvic lymphadenopathy. Small bilateral inguinal fat-cont aining hernias. The appendix is normal. The stomach and small bowel are unremarkable. There is moderate amount of c olonic stool. No free intraperitoneal gas. The heart is normal in size. There are no pericardial or pleural effusions. There is severe right basilar bronchiectasis with multiple tree-in-bud distribution reticular nodular opacities, with some more focal regions of confluence. There is mild right hilar lymphadenopathy. Th ere are 9 and 5 mm nodules identified in the posterior sulcus right lower lobe on image #30 of the omar ng window sequence. Larger 1.6 cm nodule more inferiorly located on image 37. These are most likely f rom chronic infectious process. Difficult to exclude malignancy for the larger nodules. Recommend 3-s ix-month follow-up low-dose chest CT. The bones are unremarkable. IMPRESSION: 1. Extensive right basilar bronchiectasis, reticular nodular opacities and several more sizable nodu les. Chronic infectious process. Mycobacterium or fungal infection should be considered. Consider 3-6 month follow-up chest CT. 2. Stented 4 cm abdominal aortic aneurysm without evidence of endoleak. 3. Cholelithiasis. 4. No evidence of metastatic disease. Reviewed, dictated and finalized at location A. IMPRESSION: 1. Extensive right basilar bronchiectasis, reticular nodular opacities and sev eral more sizable nodules. Chronic infectious process. Mycobacterium or fungal infection should be considered. Consider 3-6 month follow-up chest CT. 2. Stented 4 cm abdominal aortic aneurysm without evidence of endoleak. 3. Cholelithiasis. 4. No evidence of metastatic disease.
[2020-03-09 10:49] LABS: Estimated Glomerular Filt Rate > 60
== END 2020-03-09 10:23 | disposition home or self-care (01) ==
PROVIDERS: PCP Student in an Organized Health Care Education/Training Program; Visit Provider Specialist
DX: I71.4 Abdominal aortic aneurysm, without rupture (principal); K80.20 Calculus of gallbladder without cholecystitis without obstruction; J47.9 Bronchiectasis, uncomplicated
CPT/HCPCS: 36415; 74174; Q9967

== ENCOUNTER → 2020-07-22 10:09 | Outpatient (CLI) | payer MEDICARE, SELFPAY ==
--- NOTE | ~2020-07-22 | DEXA_ITS ---
Bone Density Report Name: Quentin Zavaleta Age: 69 Sex: Male Ethnicity: White Date of : 1950 Indication: cancer; seizure disorder; Referring Provider: Jose Guadalupe, Philip Study: Bone densitometry was performed. Exam Date: July 22, 2020 Accession number: [id number] Bone Density: Region BMD T-score Z-score Classification AP Spine (L1-L4) 1.142 0.5 1.3 Normal Femoral Neck (Left) 0.685 -1.8 -0.7 Osteopenia Total Hip (Left) 0.811 -1.5 -0.8 Osteopenia Femoral Neck (Right) 0.650 -2.1 -0.9 Osteopenia Total Hip (Right) 0.862 -1.1 -0.5 Osteopenia Total Hip Mean 0.837 -1.3 -0.7 Osteopenia World Health Organization criteria for BMD impression classify patients as: Normal (T-score at or above -1.0), Osteopenia (T-score between -1.0 and -2.5), or Osteoporosis (T-score at or below -2.5). 10-year Fracture Risk: FRAX not reported because: Treated for osteoporosis Clinical Information Provided by Patient: Is being treated for osteoporosis Has used the following medications: HRT (i.e. estrogen/hormone therapy), Vitamin D, MTV, hormone treatment in Oct 2019 Has the following medical conditions: Any Seizure Disorders, Cancer, asthma as a child, COPD, current prostate Cancer Patient maximum height was 69 No regular weight bearing exercise Does not regularly consume dairy products Drinks caffeinated beverages Impression: The patient has low bone mass, based on the Right Femoral Neck T-score. Discussion: It is important to ask patients whether they are taking their medications and to encourage continued and appropriate compliance with their osteoporosis therapies to reduce fracture risk. It is also important to review their risk factors and encourage appropriate calcium and vitamin D intakes, exercise, fall prevention and other lifestyle measures. Follow-Up: Consider repeating this study in 2 years to reassess this patient's status, or sooner if there is some new clinical indication. Reported by: TREASURE on 07/22/2020 11:38:00 AM. Reviewed, dictated and finalized at location A. NOELLE
== END ==
PROVIDERS: PCP Student in an Organized Health Care Education/Training Program; Visit Provider Student in an Organized Health Care Education/Training Program
DX: M85.852 Other specified disorders of bone density and structure, left thigh (principal); M85.851 Other specified disorders of bone density and structure, right thigh
CPT/HCPCS: 77080

== ENCOUNTER 2020-09-03 10:18 | Outpatient (NON) | payer MEDICARE, SELFPAY ==
[2020-09-04 13:43] LABS: SARS-CoV-2 RNA PCR Negative
== END 2020-09-03 10:19 ==
PROVIDERS: PCP Student in an Organized Health Care Education/Training Program; Visit Provider Student in an Organized Health Care Education/Training Program
DX: Z20.828 Contact with and (suspected) exposure to other viral communicable diseases (principal); J44.1 Chronic obstructive pulmonary disease with (acute) exacerbation
CPT/HCPCS: 87635; C9803; U0003

== ENCOUNTER → 2020-12-21 00:28 | Outpatient (CLI) | payer MEDICARE, SELFPAY ==
[2020-12-21 18:32] LABS: SARS-CoV-2 RNA PCR Negative
== END ==
PROVIDERS: PCP Student in an Organized Health Care Education/Training Program; Visit Provider Internal Medicine Gastroenterology
DX: Z01.812 Encounter for preprocedural laboratory examination (principal); Z20.822 Contact with and (suspected) exposure to COVID-19
CPT/HCPCS: C9803; U0003; U0005

== ENCOUNTER 2020-12-24 01:26 | Day surgery (SDC) | payer MEDICARE, SELFPAY ==
[2020-12-10 10:11] VITALS: BMI 31.9
[2020-12-24 10:57] VITALS: BP 152/57; PULSE 73; RESP 24; TEMP 36.6; O2SAT 91
--- NOTE | 2020-12-24 11:03 | WPDANESEPPF ---
Anes - Initial Pre Proc Eval Procedure: Operation Date: 12/24/20 12:00 Proposed Procedures p Screening Colonoscopy - Guy El MD Date/Time: 12/24/20 11:03 Surgeon: Guy El MD Pre Op Diagnosis: Neoplasm Screening Patient Data Age: 70 Gender: M Height: 5 ft 9 in Weight: 99.5 kg Last Vital Signs Temp 36.6 C 12/24/20 10:57 Pulse 73 12/24/20 10:57 Resp 24 H 12/24/20 10:57 BP 152/57 H 12/24/20 10:57 Pulse Ox 91 12/24/20 10:57 Allergies Allergy/AdvReac Type Severity Reaction Status Date / Time No Known Allergies Allergy Verified 12/24/20 10:53 Home Medications Medication Instructions Recorded Confirmed Type aspirin 81 mg PO DAILY 11/05/19 12/10/20 History atorvastatin 40 mg PO DAILY 11/05/19 12/10/20 History lisinopril 20 mg PO DAILY 11/05/19 12/10/20 History bicalutamide [Casodex] 50 mg PO DAILY 01/25/20 12/10/20 History budesonide-formoterol [Symbicort] 2 puff INHALATION DAILY 01/25/20 12/10/20 History hydrocodone-acetaminophen 1 tablet PO Q8H PRN 01/25/20 12/10/20 History phenytoin sodium extended 200 mg PO QID 01/25/20 12/10/20 History [Dilantin Extended] ranitidine HCl 150 mg PO HS 01/25/20 12/10/20 History prednisone 20 mg PO DIRECTED #8 tablet 01/31/20 12/10/20 Rx Neuriva De-Stress % 12/10/20 History azithromycin 500 mg PO 3XW 12/10/20 12/10/20 History Patient hx anesthesia problems: none Family hx anesthesia problems: none PMFSH Past Medical History Medical History Bronchiectasis Apparently uses vibratory vest b.i.d. for [address] Wang. Chronic back pain COPD (chronic obstructive pulmonary disease) Diastolic dysfunction Echocardiogram in November 06, 2019 showed mild increase in LV wall thickness, grossly normal LV wall motion, ejection fraction estimated > 70%, grade 1 diastolic dysfunction, and mild tricuspid valve regurgitation. Hyperlipidemia Hypertension Macrocytic anemia Obstructive sleep apnea On home O2 PAD (peripheral artery disease) Prostate cancer Status post radiation. On anti androgens. Secondary pulmonary hypertension Noted on echocardiogram 11/06/2019 with an estimated peak RVSP of 70 millimeters of mercury. Seizure disorder Surgical History Surgical History History of AAA (abdominal aortic aneurysm) repair History of vascular surgery Stents to bilateral lower extremities. Family History Family History Other Diabetes mellitus Family history of coronary artery disease Social History Social History Social History: The patient is live in [place]. They have 4 children. He designates his , Jeanette, as his surrogate decision maker. He is currently listed as a full code at the urging of his . He has smoked for 55 years, smoking as much as 2 packs of cigarettes per day for 10 years. It is unclear if or when he actually has quit smoking. No alcohol or drug use. Smoking packs per day: 0.2 Smoking cigarettes per day: 4.0 Years smoked: 50 Smoking pack-years: 10.00 Smoking status: Former smoker Tobacco type: cigarettes Smoking end date: 10/08/10 Alcohol intake: never Substance use: never Substance use type: does not use Living arrangements: with family Gender identity (if verbalized by the patient): Male Spiritual care concerns: No Agree to blood products: Yes Anes - Eval Final PreProcedure Day of Procedure 12/24/20 11:03 Patient weight: obese Heart: regular rate and rhythm Lungs: decreased breath sounds Airway: Mallampati scale class II Neurological: alert and oriented Last oral intake: >/= 8 hours ASA classification: IV Emergent: no Anesthetic plan: proceed Anesthesia type and monitoring: general
[2020-12-24] MEDS: LACTATED RINGERS 1,000 ML 150 ML IV CONT (11:10)
--- NOTE | 2020-12-24 11:43 | PM.HPGS ---
History of Present Illness History of Present Illness Consent: Risks, benefits, and alternatives have been discussed and questions answered. Patient agrees to proceed with procedure. Chief complaint: Neoplasm Screening Narrative: Quentin Zavaleta is a 70 year old male here for screening colonoscopy, last one ~ 12 years ago. Review of Systems Constitutional: Constitutional: Denies headache(s) and Denies weakness Eyes: Eyes: Denies blurry vision ENT: Reports Normal hearing present, Denies headache(s) and Denies neck pain Cardiovascular: Cardiovascular: Denies chest pain and Denies dyspnea Respiratory: Respiratory: Denies dyspnea Gastrointestinal: Gastrointestinal: Reports no additional gastrointestinal complaints Genitourinary: Genitourinary: Denies dysuria Musculoskeletal: Musculoskeletal: Denies neck pain Integumentary/Breasts: Skin/Breast: Denies dry skin Neurologic: Reports Normal hearing present, Denies headache(s) and Denies weakness Psychiatric: Psychiatric: Denies anxiety Endocrine: Endocrine: Denies change in body appearance Hematologic/Lymphatic: Hematologic/Lymphatic: Denies easy bleeding Allergic/Immunologic: Allergic/Immunologic: Denies urticaria PMFSH Past Medical History Medical History Bronchiectasis Apparently uses vibratory vest b.i.d. for [address] Wang. Chronic back pain COPD (chronic obstructive pulmonary disease) Diastolic dysfunction Echocardiogram in November 06, 2019 showed mild increase in LV wall thickness, grossly normal LV wall motion, ejection fraction estimated > 70%, grade 1 diastolic dysfunction, and mild tricuspid valve regurgitation. Hyperlipidemia Hypertension Macrocytic anemia Obstructive sleep apnea On home O2 PAD (peripheral artery disease) Prostate cancer Status post radiation. On anti androgens. Secondary pulmonary hypertension Noted on echocardiogram 11/06/2019 with an estimated peak RVSP of 70 millimeters of mercury. Seizure disorder Surgical History Surgical History History of AAA (abdominal aortic aneurysm) repair History of vascular surgery Stents to bilateral lower extremities. Family History Family History Other Diabetes mellitus Family history of coronary artery disease Social History Social History Social History: The patient is live in [place]. They have 4 children. He designates his , Jeanette, as his surrogate decision maker. He is currently listed as a full code at the urging of his . He has smoked for 55 years, smoking as much as 2 packs of cigarettes per day for 10 years. It is unclear if or when he actually has quit smoking. No alcohol or drug use. Smoking packs per day: 0.2 Smoking cigarettes per day: 4.0 Years smoked: 50 Smoking pack-years: 10.00 Smoking status: Former smoker Tobacco type: cigarettes Smoking end date: 10/08/10 Alcohol intake: never Substance use: never Substance use type: does not use Living arrangements: with family Gender identity (if verbalized by the patient): Male Spiritual care concerns: No Agree to blood products: Yes Meds Home Medications and Allergies Home Medications Medication Instructions Recorded Confirmed Type aspirin 81 mg PO DAILY 11/05/19 12/10/20 History atorvastatin 40 mg PO DAILY 11/05/19 12/10/20 History lisinopril 20 mg PO DAILY 11/05/19 12/10/20 History bicalutamide [Casodex] 50 mg PO DAILY 01/25/20 12/10/20 History budesonide-formoterol [Symbicort] 2 puff INHALATION DAILY 01/25/20 12/10/20 History hydrocodone-acetaminophen 1 tablet PO Q8H PRN 01/25/20 12/10/20 History phenytoin sodium extended 200 mg PO QID 01/25/20 12/10/20 History [Dilantin Extended] ranitidine HCl 150 mg PO HS
[2020-12-24 12:11] VITALS: BP 123/58; PULSE 78; RESP 26; O2SAT 96
[2020-12-24 12:21] VITALS: BP 136/71; PULSE 75; RESP 20; O2SAT 98
[2020-12-24 12:31] VITALS: BP 133/68; PULSE 75; RESP 15; O2SAT 92
== END 2020-12-24 12:49 | disposition home or self-care (01) ==
PROVIDERS: PCP Student in an Organized Health Care Education/Training Program; Visit Provider Internal Medicine Gastroenterology
PROC: 0DJD8ZZ Inspection of Lower Intestinal Tract, Via Natural or Artificial Opening Endoscopic (ICD-10-PCS; CPT 45378; principal; 2020-12-24 12:00)
DX: Z12.11 Encounter for screening for malignant neoplasm of colon (principal); K57.30 Diverticulosis of large intestine without perforation or abscess without bleeding; K63.5 Polyp of colon; K62.1 Rectal polyp; K64.8 Other hemorrhoids; J44.9 Chronic obstructive pulmonary disease, unspecified; I11.0 Hypertensive heart disease with heart failure; E78.5 Hyperlipidemia, unspecified; D64.9 Anemia, unspecified; G47.33 Obstructive sleep apnea (adult) (pediatric); I73.9 Peripheral vascular disease, unspecified; G40.909 Epilepsy, unspecified, not intractable, without status epilepticus; Z85.46 Personal history of malignant neoplasm of prostate; Z79.51 Long term (current) use of inhaled steroids; Z79.52 Long term (current) use of systemic steroids; Z99.81 Dependence on supplemental oxygen; E66.9 Obesity, unspecified; Z68.32 Body mass index [BMI] 32.0-32.9, adult; Z87.891 Personal history of nicotine dependence
CPT/HCPCS: 45385; 88305; C9803; J2704; J7120; U0003; U0005

== ENCOUNTER 2021-02-15 13:20 | Outpatient (CLI) | payer MEDICARE, SELFPAY ==
--- NOTE | ~2021-02-15 | US_ITS ---
EXAMINATION: US venous doppler LE RT DATE: 02/15/2021 13:48 INDICATION: Right lower limb swelling TECHNIQUE: Grayscale ultrasound images without and with compression and Doppler ultrasound images of the right lower extremity veins were obtained. COMPARISON: None. FINDINGS: The visualized portions of right common femoral vein, profunda (deep) femoral vein, femoral vein, pop liteal vein, peroneal trunk, posterior tibial veins, peroneal veins, gastrocnemius vein and greater s aphenous vein outflow are patent. IMPRESSION: 1. No deep venous thrombosis in the right lower limb. Reviewed, dictated and finalized at location A.
== END 2021-02-15 13:21 | disposition home or self-care (01) ==
PROVIDERS: PCP Student in an Organized Health Care Education/Training Program; Visit Provider Student in an Organized Health Care Education/Training Program
DX: R60.0 Localized edema (principal)
CPT/HCPCS: 93971

== ENCOUNTER 2021-03-02 16:25 | Day surgery (SDC) | payer MEDICARE, SELFPAY ==
[2021-03-02] VITALS (13 sets, daily range): BP systolic 119–177; BP diastolic 62–88; PULSE 68–84; RESP 16–29; TEMP 36.2–36.6; O2SAT 93–100
[2021-03-02] MEDS: HYOSCYAMINE SULFATE 0.5 MG/ML AMPUL 0.25 MG IM (18:12)
[2021-03-02] MEDS: GLUCAGON FOR INJ 1 MG VIAL IV PUSH (18:15)
--- NOTE | 2021-03-02 18:15 | ED.GENADULT ---
HPI - General Adult General Chief complaint: Skin/Abscess/Foreign Body Stated complaint: food bolus Time Seen by Provider: 03/02/21 17:32 Source: patient and RN notes reviewed Mode of arrival: ambulatory Limitations: no limitations History of Present Illness HPI narrative: Patient is a 70-year-old male who presents with esophageal foreign body with mild discomfort in the epigastrium that began at 11:00 last night after swallowing some steak has been unable to tolerate liquids, patient notes he has had this happen before but has been able to pass the food patient has been unable to do so today, patient is followed by Dr. Tse for gastroenterology, patient notes he had felt fine prior to this and denies other complaints or symptoms Related Data Home Medications Medication Instructions Recorded Confirmed aspirin 81 mg PO DAILY 11/05/19 12/10/20 atorvastatin 40 mg PO DAILY 11/05/19 12/10/20 lisinopril 20 mg PO DAILY 11/05/19 12/10/20 bicalutamide [Casodex] 50 mg PO DAILY 01/25/20 12/10/20 budesonide-formoterol [Symbicort] 2 puff INHALATION DAILY 01/25/20 12/10/20 hydrocodone-acetaminophen 1 tablet PO Q8H PRN 01/25/20 12/10/20 phenytoin sodium extended 200 mg PO QID 01/25/20 12/10/20 [Dilantin Extended] ranitidine HCl 150 mg PO HS 01/25/20 12/10/20 Neuriva De-Stress % 12/10/20 azithromycin 500 mg PO 3XW 12/10/20 12/10/20 Allergies Allergy/AdvReac Type Severity Reaction Status Date / Time No Known Allergies Allergy Verified 12/24/20 10:53 Review of Systems Review of Systems: All systems reviewed & are unremarkable except as noted in HPI and below PMFSH Past Medical History Medical History Bronchiectasis Apparently uses vibratory vest b.i.d. for [address] Wang. Chronic back pain Colon cancer screening COPD (chronic obstructive pulmonary disease) Diastolic dysfunction Echocardiogram in November 06, 2019 showed mild increase in LV wall thickness, grossly normal LV wall motion, ejection fraction estimated > 70%, grade 1 diastolic dysfunction, and mild tricuspid valve regurgitation. Hyperlipidemia Hypertension Macrocytic anemia Obstructive sleep apnea On home O2 PAD (peripheral artery disease) Prostate cancer Status post radiation. On anti androgens. Secondary pulmonary hypertension Noted on echocardiogram 11/06/2019 with an estimated peak RVSP of 70 millimeters of mercury. Seizure disorder Surgical History Surgical History History of AAA (abdominal aortic aneurysm) repair History of vascular surgery Stents to bilateral lower extremities. Family History Family History Other Diabetes mellitus Family history of coronary artery disease Social History Social History Social History: The patient is live in [place]. They have 4 children. He designates his , Jeanette, as his surrogate decision maker. He is currently listed as a full code at the urging of his . He has smoked for 55 years, smoking as much as 2 packs of cigarettes per day for 10 years. It is unclear if or when he actually has quit smoking. No alcohol or drug use. Smoking packs per day: 0.2 Smoking cigarettes per day: 4.0 Years smoked: 50 Smoking pack-years: 10.00 Smoking status: Former smoker Tobacco type: cigarettes Smoking end date: 10/08/10 Alcohol intake: never Substance use: never Substance use type: does not use Gender identity (if verbalized by the patient): Male Spiritual care concerns: No Agree to blood products: Yes Exam Narrative: Exam Narrative: GENERAL: Well-appearing, well-nourished, and in no acute distress. HEAD: Normocephalic, atraumatic. EYES: PERRLA and EOMI. ENT: Nares clear, no rhinorrhea or epistaxis. Mucous membranes lise
[2021-03-02] MEDS: NITROGLYCERIN SL 0.4 MG TABLET SUBLINGUAL (18:16)
[2021-03-02 18:32] LABS: Basophils Absolute Auto 0.1 K/mm3 (0.0-0.1); Basophils Percent Auto 0.5 % (0.2-1.2); Eosinophils Absolute Auto 0.5 K/mm3 (0-0.3); Eosinophils Percent Auto 5.6 % (0-4.4); Hematocrit 40.5 % (42.0-52.0); Hemoglobin 13.1 g/dL (14.0-18.0); Immature Granulocyte Absolute 0.07 K/mm3 (0.00-0.031); Immature Granulocyte Percent A 0.8 % (0-0.5); Lymphocytes Absolute Auto 0.97 K/mm3 (0.9-3.2); Lymphocytes Percent Auto 10.6 % (18.3-44.2); Mean Corpuscular HGB Conc 32.3 g/dl (32-36); Mean Corpuscular Hemoglobin 34.1 pg (26-34); Mean Corpuscular Volume 105.5 fl (80-100); Mean Platelet Volume 9.2 fl (7.4-10.4); Monocytes Absolute Auto 0.7 K/mm3 (0.1-0.6); Monocytes Percent Auto 7.7 % (2.6-8.5); Neutrophils Absolute Auto 6.8 K/mm3 (1.3-6.7); Neutrophils Percent Auto 74.8 % (45.5-73.1); Platelet Count Result 164 k/mm3 (150-375); Red Blood Count 3.84 M/mm3 (4.6-6.20); Red Cell Distribution Width 14.7 % (11.5-14.5); White Blood Count 9.1 K/mm3 (4.5-10.0)
[2021-03-02 18:48] LABS: Alanine Aminotransferase 22 U/L (4-50); Alkaline Phosphatase 138 U/L (38-126); Anion Gap 4 mmol/L (8-16); Aspartate Amino Transferase 35 U/L (17-59); Bilirubin,Total 0.4 mg/dL (0.2-1.3); Blood Urea Nitrogen 23 mg/dL (9-20); Calcium 9.1 mg/dL (8.4-10.2); Carbon Dioxide 39 mmol/L (22-30); Chloride 94 mmol/L (98-107); Estimated CRCL calculation 65 ml/min; Estimated Glomerular Filt Rate > 60; Glucose 102 mg/dL (75-110); Potassium 5.7 mmol/L (3.4-5.0); Sodium 137 mmol/L (137-145)
--- NOTE | 2021-03-02 18:52 | ECG_ITS ---
Measurements Intervals [place] Rate: 81 P: 68 ME: 173 QRS: 73 QRSD: 98 T: 71 QT: 339 QTc: 394 Interpretive Statements SINUS RHYTHM BASELINE ARTIFACT- I, II, AVR, V1-V2 NORMAL ECG Electronically Signed On 03-02-2021 20:00:40 CDT by Julien Ku D.O.
--- NOTE | 2021-03-02 19:36 | PC.NURSE ---
Glucose 121. Pt presents to ED after food bolus went down the wrong way . Per , onset was at 2300 yesterday night and states pt has several occurrences of food bolus and states he is usually able to expel food within one hour. Pt remains alert and oriented x4 and in no obvious distress. breathing noted to be even and unlabored at this time. is present at bedside. Pt advised to press call button for assistance.
--- NOTE | 2021-03-02 19:42 | PC.NURSE ---
EDPA states to hold meds until EKG is completed and then prep pt for GI lab.
[2021-03-02 20:10] LABS: Glucose Point of Care 121 mg/dl (65-105)
--- NOTE | 2021-03-02 20:10 | WPDANESEPP ---
Anes - Eval Pre Procedure Procedure: Labor epidural Operation Date: 03/02/21 21:15 Proposed Procedures p Esophagogastroduodenoscopy - Guy El MD Date/Time: 03/02/21 20:10 Surgeon: Dedrick Pre Op Diagnosis: food bolus Patient Data Age: 70 Gender: M Height: 5 ft 8 in Weight: 102 kg Last Vital Signs Temp 97.8 F 03/02/21 16:27 Pulse 81 03/02/21 19:41 Resp 21 H 03/02/21 19:41 BP 147/74 H 03/02/21 19:41 Pulse Ox 98 03/02/21 19:41 Allergies Allergy/AdvReac Type Severity Reaction Status Date / Time No Known Allergies Allergy Verified 12/24/20 10:53 Home Medications Medication Instructions Recorded Confirmed Type aspirin 81 mg PO DAILY 11/05/19 12/10/20 History atorvastatin 40 mg PO DAILY 11/05/19 12/10/20 History lisinopril 20 mg PO DAILY 11/05/19 12/10/20 History bicalutamide [Casodex] 50 mg PO DAILY 01/25/20 12/10/20 History budesonide-formoterol [Symbicort] 2 puff INHALATION DAILY 01/25/20 12/10/20 History hydrocodone-acetaminophen 1 tablet PO Q8H PRN 01/25/20 12/10/20 History phenytoin sodium extended 200 mg PO QID 01/25/20 12/10/20 History [Dilantin Extended] ranitidine HCl 150 mg PO HS 01/25/20 12/10/20 History prednisone 20 mg PO DIRECTED #8 tablet 01/31/20 12/10/20 Rx Neuriva De-Stress % 12/10/20 History azithromycin 500 mg PO 3XW 12/10/20 12/10/20 History Laboratory Tests 03/02/21 03/02/21 18:19 18:19 WBC 9.1 K/mm3 K/mm3 (4.5-10.0) RBC 3.84 M/mm3 L M/mm3 (4.6-6.20) Hgb 13.1 g/dL L g/dL (14.0-18.0) Hct 40.5 % L % (42.0-52.0) MCV 105.5 fl H fl (80-100) MCH 34.1 pg H pg (26-34) MCHC 32.3 g/dl g/dl (32-36) RDW 14.7 % H % (11.5-14.5) Plt Count 164 k/mm3 k/mm3 (150-375) MPV 9.2 fl fl (7.4-10.4) Immature Gran % (Auto) 0.8 % H % (0-0.5) Neut % (Auto) 74.8 % H % (45.5-73.1) Lymph % (Auto) 10.6 % L % (18.3-44.2) [place] % (Auto) 7.7 % % (2.6-8.5) Eos % (Auto) 5.6 % H % (0-4.4) Baso % (Auto) 0.5 % % (0.2-1.2) Lymph # (Auto) 0.97 K/mm3 K/mm3 (0.9-3.2) [place] # (Auto) 0.7 K/mm3 H K/mm3 (0.1-0.6) Eos # (Auto) 0.5 K/mm3 H K/mm3 (0-0.3) Baso # (Auto) 0.1 K/mm3 K/mm3 (0.0-0.1) Abs Immat Gran (auto) 0.07 K/mm3 H K/mm3 (0.00-0.031) Absolute Neuts (auto) 6.8 K/mm3 H K/mm3 (1.3-6.7) Absolute Nucleated RBC 0.0 K/mm3 K/mm3 (0.0-0.012) Nucleated RBC % 0.0 % % (0.0-0.2) Sodium 137 mmol/L mmol/L (137-145) Potassium 5.7 mmol/L H mmol/L (3.4-5.0) Chloride 94 mmol/L L mmol/L (98-107) Carbon Dioxide 39 mmol/L H mmol/L (22-30) Anion Gap 4 mmol/L L mmol/L (8-16) BUN 23 mg/dL H D mg/dL (9-20) Creatinine 1.10 mg/dL mg/dL (0.7-1.3) Estim Creat Clear Calc 65 ml/min ml/min Estimated GFR > 60 (59 - ) Glucose 102 mg/dL mg/dL (75-110) Calcium 9.1 mg/dL mg/dL (8.4-10.2) Total Bilirubin 0.4 mg/dL mg/dL (0.2-1.3) AST 35 U/L U/L (17-59) ALT 22 U/L U/L (4-50) Alkaline Phosphatase 138 U/L H U/L (38-126) Total Protein 8.0 g/dL g/dL (6.3-8.2) Albumin 4.0 g/dL g/dL (3.5-5.1) Patient hx anesthesia problems: none Family hx anesthesia problems: none [facility] Past Medical History Medical History Bronchiectasis Apparently uses vibratory vest b.i.d. for [address] Wang. Chronic back pain Colon cancer screening COPD (chronic obstructive pulmonary disease) Diastolic dysfunction Echocardiogram in November 06, 2019 showed mild increase in LV wall thickness, grossly normal LV wall motion, ejection fraction estimated > 70%, grade 1 diastolic dysfunction, and mild tricuspid valve regurgitation. Hyperlipidemia Hypertension Macrocytic anemia Obstructive sleep apnea On brenda
--- NOTE | 2021-03-02 20:14 | PC.NURSE ---
Spoke with Chantel in Endoscopy and report was given. States she will be down to get pt. Consent forms are at bedside.
--- NOTE | 2021-03-02 20:24 | PC.NURSE ---
Pt to GI lab with nurses. Pt noted to be alert and oriented x4. Breathing even and unlabored with stable vitals.
--- NOTE | 2021-03-02 20:29 | PM.HPGS ---
History of Present Illness History of Present Illness Consent: Risks, benefits, and alternatives have been discussed and questions answered. Patient agrees to proceed with procedure. Chief complaint: food bolus Narrative: Quentin Zavaleta is a 70 year old male here with history of dysphagia, last night ate piece of steak and since then unable to swallow. Came to ER, medical treatment did not help. He does not remember having EGD Review of Systems Constitutional: Constitutional: Denies headache(s) and Denies weakness Eyes: Eyes: Denies blurry vision ENT: Reports Normal hearing present, Denies headache(s) and Denies neck pain Cardiovascular: Cardiovascular: Denies chest pain and Denies dyspnea Respiratory: Respiratory: Denies dyspnea Gastrointestinal: Gastrointestinal: Reports no additional gastrointestinal complaints Genitourinary: Genitourinary: Denies dysuria Musculoskeletal: Musculoskeletal: Denies neck pain Integumentary/Breasts: Skin/Breast: Denies dry skin Neurologic: Reports Normal hearing present, Denies headache(s) and Denies weakness Psychiatric: Psychiatric: Denies anxiety Endocrine: Endocrine: Denies change in body appearance Hematologic/Lymphatic: Hematologic/Lymphatic: Denies easy bleeding Allergic/Immunologic: Allergic/Immunologic: Denies urticaria [facility] Past Medical History Medical History (Updated 03/02/21 @ 20:30 by Guy El MD) Bronchiectasis Apparently uses vibratory vest b.i.d. for [address] Wang. Chronic back pain Colon cancer screening COPD (chronic obstructive pulmonary disease) Diastolic dysfunction Echocardiogram in November 06, 2019 showed mild increase in LV wall thickness, grossly normal LV wall motion, ejection fraction estimated > 70%, grade 1 diastolic dysfunction, and mild tricuspid valve regurgitation. Dysphagia Hyperlipidemia Hypertension Macrocytic anemia Obstructive sleep apnea On home O2 PAD (peripheral artery disease) Prostate cancer Status post radiation. On anti androgens. Secondary pulmonary hypertension Noted on echocardiogram 11/06/2019 with an estimated peak RVSP of 70 millimeters of mercury. Seizure disorder Surgical History Surgical History History of AAA (abdominal aortic aneurysm) repair History of vascular surgery Stents to bilateral lower extremities. Family History Family History Other Diabetes mellitus Family history of coronary artery disease Social History Social History Social History: The patient is live in [place]. They have 4 children. He designates his , Jeanette, as his surrogate decision maker. He is currently listed as a full code at the urging of his . He has smoked for 55 years, smoking as much as 2 packs of cigarettes per day for 10 years. It is unclear if or when he actually has quit smoking. No alcohol or drug use. Smoking packs per day: 0.2 Smoking cigarettes per day: 4.0 Years smoked: 50 Smoking pack-years: 10.00 Smoking status: Former smoker Tobacco type: cigarettes Smoking end date: 10/08/10 Alcohol intake: never Substance use: never Substance use type: does not use Gender identity (if verbalized by the patient): Male Spiritual care concerns: No Agree to blood products: Yes Meds Home Medications and Allergies Home Medications Medication Instructions Recorded Confirmed Type aspirin 81 mg PO DAILY 11/05/19 12/10/20 History atorvastatin 40 mg PO DAILY 11/05/19 12/10/20 History lisinopril 20 mg PO DAILY 11/05/19 12/10/20 History bicalutamide [Casodex] 50 mg PO DAILY 01/25/20 12/10/20 History budesonide-formoterol [Symbicort] 2 puff INHALATION DAILY 01/25/20 12/10/20 History hydrocodone-acetaminophen 1 tablet PO Q8H PRN 01/25/20 12/10/20 History phenytoin sodium ex
[2021-03-02] MEDS: LACTATED RINGERS 1,000 ML 150 ML IV CONT (20:59)
== END 2021-03-02 21:41 | disposition home or self-care (01) ==
LOC: ANHED 19:25 → ANHSURGERY 19:26
PROVIDERS: Emergency Medicine Emergency Medical Services; Emergency Provider Emergency Medicine; PCP Student in an Organized Health Care Education/Training Program; Visit Provider Internal Medicine Gastroenterology
PROC: 0DJ08ZZ Inspection of Upper Intestinal Tract, Via Natural or Artificial Opening Endoscopic (ICD-10-PCS; CPT 43235; principal; 2021-03-02 21:15)
DX: T18.128A Food in esophagus causing other injury, initial encounter (principal); E87.5 Hyperkalemia; E86.0 Dehydration; K22.2 Esophageal obstruction; K44.9 Diaphragmatic hernia without obstruction or gangrene; J44.9 Chronic obstructive pulmonary disease, unspecified; I11.9 Hypertensive heart disease without heart failure; E78.5 Hyperlipidemia, unspecified; G47.33 Obstructive sleep apnea (adult) (pediatric); I73.9 Peripheral vascular disease, unspecified; Z99.81 Dependence on supplemental oxygen; G40.909 Epilepsy, unspecified, not intractable, without status epilepticus; D64.9 Anemia, unspecified; I27.20 Pulmonary hypertension, unspecified; Z85.46 Personal history of malignant neoplasm of prostate; Z92.3 Personal history of irradiation; Z79.82 Long term (current) use of aspirin; Z79.51 Long term (current) use of inhaled steroids; Z79.891 Long term (current) use of opiate analgesic; Z87.891 Personal history of nicotine dependence; E66.9 Obesity, unspecified; Z68.34 Body mass index [BMI] 34.0-34.9, adult
CPT/HCPCS: 43247; 36415; 80053; 82948; 85025; 93005; 96372; 96374; 99285; A9270; J1610; J1980; J7120

== ENCOUNTER → 2021-05-14 00:23 | Outpatient (CLI) | payer MEDICARE, SELFPAY ==
[2021-05-14 21:26] LABS: SARS-CoV-2 RNA PCR Negative
== END ==
PROVIDERS: PCP Student in an Organized Health Care Education/Training Program; Visit Provider Internal Medicine Gastroenterology
DX: Z01.812 Encounter for preprocedural laboratory examination (principal); Z20.822 Contact with and (suspected) exposure to COVID-19
CPT/HCPCS: C9803; U0003; U0005

== ENCOUNTER 2021-05-17 00:58 | Day surgery (SDC) | payer MEDICARE, SELFPAY ==
[2021-05-06 15:10] VITALS: BMI 39.5
--- NOTE | 2021-05-16 15:17 | PC.NURSE ---
Addendum entered by Madelin Oliveira RN 05/16/21 15:29: Printed note. Original Note: Pt. takes Plavix daily for history of BLE stents. Plavix is managed by Dr. Andrew Alatorre-vascular surgeon. Request was faxed to Dr. Alatorre's office on 05/09/21 to advise on Plavix for pt's EGD on 05/17/21. Called Dr[address] Alatorre's office 05/16/21 at 1003. Office states they could not locate faxed request, suggested Dr. Alatorre may have it. Called patient to see if he had possibly already stopped Plavix in anticipation of procedure, but no answer. Called Dr. Tse, updated with above information. States he will proceed with EGD tomorrow regardless. Lynette Isaac RN-Endo Manager Of Case Management made aware also. Edilma Oliveira RN 05/16/2021 [id number].
[2021-05-17 11:50] VITALS: BP 159/63; PULSE 87; RESP 22; TEMP 36.1; O2SAT 88
[2021-05-17] MEDS: LACTATED RINGERS 1,000 ML 150 ML IV CONT (11:53)
--- NOTE | 2021-05-17 11:56 | WPDANESEPPF ---
Anes - Initial Pre Proc Eval Procedure: Operation Date: 05/17/21 13:00 Proposed Procedures p Esophagogastroduodenoscopy - Guy El MD Date/Time: 05/17/21 11:56 Surgeon: Guy El MD Pre Op Diagnosis: dysphagia Patient Data Age: 70 Gender: M Height: 1.73 m Weight: 105.6 kg Last Vital Signs Temp 36.1 C L 05/17/21 11:50 Pulse 87 05/17/21 11:50 Resp 22 H 05/17/21 11:50 BP 159/63 H 05/17/21 11:50 Pulse Ox 88 L 05/17/21 11:50 Allergies Allergy/AdvReac Type Severity Reaction Status Date / Time No Known Allergies Allergy Verified 05/06/21 15:26 Home Medications Medication Instructions Recorded Confirmed Type aspirin 81 mg PO DAILY 11/05/19 05/06/21 History atorvastatin 40 mg PO DAILY 11/05/19 05/06/21 History lisinopril 20 mg PO DAILY 11/05/19 05/06/21 History bicalutamide [Casodex] 50 mg PO DAILY 01/25/20 05/06/21 History budesonide-formoterol [Symbicort] 2 puff INHALATION DAILY 01/25/20 05/06/21 History hydrocodone-acetaminophen 1 tablet PO Q8H PRN 01/25/20 05/06/21 History phenytoin sodium extended 200 mg PO QID 01/25/20 05/06/21 History [Dilantin Extended] Neuriva De-Stress % 12/10/20 History azithromycin 500 mg PO 3XW 12/10/20 05/06/21 History omeprazole 40 mg capsule,delayed 40 mg PO DAILY #30 cap 03/02/21 05/06/21 Rx release topiramate 25 mg tablet See Rx Instructions .ROUTE 05/03/21 05/06/21 Rx .COMPLEX #30 tablet clopidogrel 75 mg DAILY 05/06/21 05/06/21 History Patient hx anesthesia problems: none Family hx anesthesia problems: none PMFSH Past Medical History Medical History Bronchiectasis Apparently uses vibratory vest b.i.d. for [address] Wang. Chronic back pain Colon cancer screening COPD (chronic obstructive pulmonary disease) Diastolic dysfunction Echocardiogram in November 06, 2019 showed mild increase in LV wall thickness, grossly normal LV wall motion, ejection fraction estimated > 70%, grade 1 diastolic dysfunction, and mild tricuspid valve regurgitation. Dysphagia Hyperlipidemia Hypertension Macrocytic anemia Obstructive sleep apnea On home O2 PAD (peripheral artery disease) Prostate cancer Status post radiation. On anti androgens. Secondary pulmonary hypertension Noted on echocardiogram 11/06/2019 with an estimated peak RVSP of 70 millimeters of mercury. Seizure disorder Surgical History Surgical History History of AAA (abdominal aortic aneurysm) repair History of vascular surgery Stents to bilateral lower extremities. Family History Family History Other Diabetes mellitus Family history of coronary artery disease Social History Social History Social History: The patient is live in [place]. They have 4 children. He designates his , Jeanette, as his surrogate decision maker. He is currently listed as a full code at the urging of his . He has smoked for 55 years, smoking as much as 2 packs of cigarettes per day for 10 years. It is unclear if or when he actually has quit smoking. No alcohol or drug use. Smoking packs per day: 1 Smoking cigarettes per day: 20.0 Years smoked: 48 Smoking pack-years: 48.00 Smoking status: Former smoker Tobacco type: cigarettes Smoking end date: 10/08/10 Alcohol intake: never Substance use: never Substance use type: does not use Living arrangements: with family Gender identity (if verbalized by the patient): Male Spiritual care concerns: No Agree to blood products: Yes Anes - Eval Final PreProcedure Day of Procedure 05/17/21 11:56 Patient weight: obese Heart: regular rate and rhythm Lungs: decreased breath sounds Airway: Mallampati scale class II Neurological: alert and oriented
--- NOTE | 2021-05-17 12:38 | PM.HPGS ---
History of Present Illness History of Present Illness Consent: Risks, benefits, and alternatives have been discussed and questions answered. Patient agrees to proceed with procedure. Chief complaint: dysphagia Narrative: Quentin Zavaleta is a 70 year old male with food bolus that required egd 02/2021, taking omeprazole. No report of dysphagia. Review of Systems Constitutional: Constitutional: Denies headache(s) and Denies weakness Eyes: Eyes: Denies blurry vision ENT: Reports Normal hearing present, Denies headache(s) and Denies neck pain Cardiovascular: Cardiovascular: Denies chest pain and Denies dyspnea Respiratory: Respiratory: Denies dyspnea Gastrointestinal: Gastrointestinal: Reports no additional gastrointestinal complaints Genitourinary: Genitourinary: Denies dysuria Musculoskeletal: Musculoskeletal: Denies neck pain Integumentary/Breasts: Skin/Breast: Denies dry skin Neurologic: Reports Normal hearing present, Denies headache(s) and Denies weakness Psychiatric: Psychiatric: Denies anxiety Endocrine: Endocrine: Denies change in body appearance Hematologic/Lymphatic: Hematologic/Lymphatic: Denies easy bleeding Allergic/Immunologic: Allergic/Immunologic: Denies urticaria PMFSH Past Medical History Medical History Bronchiectasis Apparently uses vibratory vest b.i.d. for [address] Wang. Chronic back pain Colon cancer screening COPD (chronic obstructive pulmonary disease) Diastolic dysfunction Echocardiogram in November 06, 2019 showed mild increase in LV wall thickness, grossly normal LV wall motion, ejection fraction estimated > 70%, grade 1 diastolic dysfunction, and mild tricuspid valve regurgitation. Dysphagia Hyperlipidemia Hypertension Macrocytic anemia Obstructive sleep apnea On home O2 PAD (peripheral artery disease) Prostate cancer Status post radiation. On anti androgens. Secondary pulmonary hypertension Noted on echocardiogram 11/06/2019 with an estimated peak RVSP of 70 millimeters of mercury. Seizure disorder Surgical History Surgical History History of AAA (abdominal aortic aneurysm) repair History of vascular surgery Stents to bilateral lower extremities. Family History Family History Other Diabetes mellitus Family history of coronary artery disease Social History Social History Social History: The patient is live in [place]. They have 4 children. He designates his , Jeanette, as his surrogate decision maker. He is currently listed as a full code at the urging of his . He has smoked for 55 years, smoking as much as 2 packs of cigarettes per day for 10 years. It is unclear if or when he actually has quit smoking. No alcohol or drug use. Smoking packs per day: 1 Smoking cigarettes per day: 20.0 Years smoked: 48 Smoking pack-years: 48.00 Smoking status: Former smoker Tobacco type: cigarettes Smoking end date: 10/08/10 Alcohol intake: never Substance use: never Substance use type: does not use Living arrangements: with family Gender identity (if verbalized by the patient): Male Spiritual care concerns: No Agree to blood products: Yes Meds Home Medications and Allergies Home Medications Medication Instructions Recorded Confirmed Type aspirin 81 mg PO DAILY 11/05/19 05/06/21 History atorvastatin 40 mg PO DAILY 11/05/19 05/06/21 History lisinopril 20 mg PO DAILY 11/05/19 05/06/21 History bicalutamide [Casodex] 50 mg PO DAILY 01/25/20 05/06/21 History budesonide-formoterol [Symbicort] 2 puff INHALATION DAILY 01/25/20 05/06/21 History hydrocodone-acetaminophen 1 tablet PO Q8H PRN 01/25/20 05/06/21 History phenytoin sodium extended 200 mg PO QID 01/25/20 05/06/21 History [Dilantin Exte
[2021-05-17] MEDS: BENZOCAINE (*SP) 60 ML SPRAY CAN (HURRICAINE) 1 SPRAY MUCOUS MEM (12:46)
[2021-05-17 13:00] VITALS: BP 153/72; PULSE 75; RESP 24; O2SAT 95
[2021-05-17 13:10] VITALS: BP 148/73; PULSE 77; RESP 24; O2SAT 91
[2021-05-17 13:19] VITALS: BP 155/78; PULSE 74; RESP 24; O2SAT 94
== END 2021-05-17 13:40 | disposition home or self-care (01) ==
PROVIDERS: PCP Student in an Organized Health Care Education/Training Program; Visit Provider Internal Medicine Gastroenterology
PROC: 0DJ08ZZ Inspection of Upper Intestinal Tract, Via Natural or Artificial Opening Endoscopic (ICD-10-PCS; CPT 43235; principal; 2021-05-17 13:00)
DX: R13.19 Other dysphagia (principal); J44.9 Chronic obstructive pulmonary disease, unspecified; E78.5 Hyperlipidemia, unspecified; I11.9 Hypertensive heart disease without heart failure; D53.9 Nutritional anemia, unspecified; G47.33 Obstructive sleep apnea (adult) (pediatric); I73.9 Peripheral vascular disease, unspecified; G40.909 Epilepsy, unspecified, not intractable, without status epilepticus; Z87.891 Personal history of nicotine dependence; Z79.82 Long term (current) use of aspirin; Z85.46 Personal history of malignant neoplasm of prostate; Z92.3 Personal history of irradiation; I27.20 Pulmonary hypertension, unspecified
CPT/HCPCS: 43235; C9803; J2704; J7120; U0003; U0005

== ENCOUNTER 2021-06-01 13:28 | Emergency (ER) | payer MEDICARE, SELFPAY ==
[2021-06-01 13:37] VITALS: BP 176/64; PULSE 67; RESP 21; TEMP 36.3; O2SAT 100
--- NOTE | 2021-06-01 14:41 | ED.EPISTAXIS ---
HPI - Epistaxis General Chief complaint: Epistaxis Stated complaint: NOSE BLEED Time Seen by Provider: 06/01/21 14:13 Source: patient Mode of arrival: EMS Limitations: no limitations History of Present Illness HPI Narrative: This is a 70 year old male that presents to the ER for nosebleed present since this morning. No known injury or trauma to the area. Reports epistaxis from the right nare. He was unable to get the bleed to stop which prompted him to be seen. He does take Plavix and Aspirin. Was noted by EMS to have an oxygen saturation in the 70s on their arrival. He is usually on 3L via [place], but had tissue packed in the right nare. Was placed on NRB. Denies fever. Related Data Home Medications Medication Instructions Recorded Confirmed aspirin 81 mg PO DAILY 11/05/19 05/06/21 atorvastatin 40 mg PO DAILY 11/05/19 05/06/21 lisinopril 20 mg PO DAILY 11/05/19 05/06/21 bicalutamide [Casodex] 50 mg PO DAILY 01/25/20 05/06/21 budesonide-formoterol [Symbicort] 2 puff INHALATION DAILY 01/25/20 05/06/21 hydrocodone-acetaminophen 1 tablet PO Q8H PRN 01/25/20 05/06/21 phenytoin sodium extended 200 mg PO QID 01/25/20 05/06/21 [Dilantin Extended] Neuriva De-Stress % 12/10/20 azithromycin 500 mg PO 3XW 12/10/20 05/06/21 clopidogrel 75 mg DAILY 05/06/21 05/06/21 Allergies Allergy/AdvReac Type Severity Reaction Status Date / Time No Known Allergies Allergy Verified 05/06/21 15:26 Review of Systems Review of Systems: CONSTITUTIONAL: Denies fever ENT: Reports epistaxis RESPIRATORY: Denies current dyspnea. All systems reviewed & are unremarkable except as noted in HPI and below PMFSH Past Medical History Medical History Bronchiectasis Apparently uses vibratory vest b.i.d. for [address] Wang. Chronic back pain Colon cancer screening COPD (chronic obstructive pulmonary disease) Diastolic dysfunction Echocardiogram in November 06, 2019 showed mild increase in LV wall thickness, grossly normal LV wall motion, ejection fraction estimated > 70%, grade 1 diastolic dysfunction, and mild tricuspid valve regurgitation. Dysphagia Hyperlipidemia Hypertension Macrocytic anemia Obstructive sleep apnea On home O2 PAD (peripheral artery disease) Prostate cancer Status post radiation. On anti androgens. Secondary pulmonary hypertension Noted on echocardiogram 11/06/2019 with an estimated peak RVSP of 70 millimeters of mercury. Seizure disorder Surgical History Surgical History History of AAA (abdominal aortic aneurysm) repair History of vascular surgery Stents to bilateral lower extremities. Family History Family History Other Diabetes mellitus Family history of coronary artery disease Social History Social History Social History: The patient is live in [place]. They have 4 children. He designates his , Jeanette, as his surrogate decision maker. He is currently listed as a full code at the urging of his . He has smoked for 55 years, smoking as much as 2 packs of cigarettes per day for 10 years. It is unclear if or when he actually has quit smoking. No alcohol or drug use. Smoking packs per day: 1 Smoking cigarettes per day: 20.0 Years smoked: 48 Smoking pack-years: 48.00 Smoking status: Former smoker Tobacco type: cigarettes Smoking end date: 10/08/10 Alcohol intake: never Substance use: never Substance use type: does not use Gender identity (if verbalized by the patient): Male Spiritual care concerns: No Agree to blood products: Yes Exam Narrative: GENERAL: Well-appearing, well-nourished, and in no acute distress. HEAD: Normocephalic, atraumatic. EYES: EOMI. ENT: Right nare with dried blood, no active bleeding. Mucous membranes moist
[2021-06-01 15:08] VITALS: O2SAT 93
[2021-06-01 16:01] LABS: Basophils Absolute Auto 0.1 K/mm3 (0.0-0.1); Basophils Percent Auto 0.7 % (0.2-1.2); Eosinophils Absolute Auto 0.6 K/mm3 (0-0.3); Eosinophils Percent Auto 7.3 % (0-4.4); Hematocrit 40.6 % (42.0-52.0); Hemoglobin 12.8 g/dL (14.0-18.0); Immature Granulocyte Absolute 0.04 K/mm3 (0.00-0.031); Immature Granulocyte Percent A 0.5 % (0-0.5); Lymphocytes Absolute Auto 0.84 K/mm3 (0.9-3.2); Lymphocytes Percent Auto 10.3 % (18.3-44.2); Mean Corpuscular HGB Conc 31.5 g/dl (32-36); Mean Corpuscular Hemoglobin 31.4 pg (26-34); Mean Corpuscular Volume 99.5 fl (80-100); Monocytes Absolute Auto 0.9 K/mm3 (0.1-0.6); Monocytes Percent Auto 10.5 % (2.6-8.5); Neutrophils Absolute Auto 5.8 K/mm3 (1.3-6.7); Neutrophils Percent Auto 70.7 % (45.5-73.1); Platelet Count Result 209 k/mm3 (150-375); Red Blood Count 4.08 M/mm3 (4.6-6.20); Red Cell Distribution Width 15.8 % (11.5-14.5); White Blood Count 8.2 K/mm3 (4.5-10.0)
[2021-06-01 16:23] LABS: INR 0.9; Prothrombin Time 11.8 Seconds (11.1-14.7)
[2021-06-01 16:24] LABS: Partial Thromboplastin Time 27.4 SECONDS (22.3-36.8)
[2021-06-01 17:23] VITALS: BP 166/67; PULSE 69; RESP 18; O2SAT 94
== END 2021-06-01 17:24 | disposition home or self-care (01) ==
PROVIDERS: Physician Assistant; Emergency Provider Emergency Medicine; PCP Student in an Organized Health Care Education/Training Program
DX: R04.0 Epistaxis (principal); E78.5 Hyperlipidemia, unspecified; I10 Essential (primary) hypertension
CPT/HCPCS: 30901; 36415; 85025; 85610; 85730; 99282; A9270

== ENCOUNTER 2021-06-22 11:53 | Inpatient (IN) | payer MEDICARE, SELFPAY ==
[2021-06-22] VITALS (24 sets, daily range): BP systolic 113–168; BP diastolic 47–79; PULSE 65–99; RESP 14–26; TEMP 36.2–37; O2SAT 79–99; BMI 35.6
--- NOTE | ~2021-06-22 | CT_ITS ---
EXAMINATION: CTA chest PE protocol DATE: 06/26/2021 10:34 INDICATION: COPD with hypoxemia TECHNIQUE: Computed tomography angiography (CTA) of the chest was performed with 100 mL Omnipaque-350 intravenous contrast timed to evaluate the pulmonary arteries. Coronal maximum intensity projection 3D-reconstructions were created by the technologist. The dose-length product (DLP) was 742.45 mGy-cm. Automated exposure control and iterative reconstruction technique were employed. COMPARISON: None. FINDINGS: The pulmonary arteries are well-opacified. No pulmonary embolism is identified. There is mo derate emphysema. There are multiple pulmonary nodules which measure 6 mm. There are thin and thick w alled cysts throughout the lungs, right greater than left. There is a small right pleural effusion. N o pneumothorax is identified. There is bilateral hilar lymphadenopathy. Calcified coronary artery ath erosclerosis is noted. The heart size is normal. There is bilateral gynecomastia. A subcutaneous flui d attenuation lesion to the left of midline overlying the sternum likely represents a sebaceous cyst. Stones are present in the nondistended gallbladder. There are calcified periportal lymph nodes. IMPRESSION: 1. No pulmonary embolus identified. 2. Widespread nodular and cystic change of the lungs which may reflect pulmonary langerhans cell hist iocytosis. Follow-up CT in 3-6 months is recommended. 3. Moderate emphysema. Reviewed, dictated and finalized at location A. IMPRESSION: 1. No pulmonary embolus identified. 2. Widespread nodular and cystic change of the lungs which may reflect pulmonar y langerhans cell histiocytosis. Follow-up CT in 3-6 months is recommended. 3. Moderate emphysema.
--- NOTE | ~2021-06-22 | XR_ITS ---
EXAMINATION: XR chest 1V portable EXAM DATE: 06/22/2021 12:16 INDICATION: Shortness of breath. History hypertension COPD, prostate cancer. TECHNIQUE: Portable AP frontal chest x-ray was obtained. Comparison is made to prior examination from 01/31/2020. FINDINGS: Diffuse abnormal reticulation again noted. Could be chronic infectious process. No confluen t consolidation. Please correlate with prior CT report 03/09/2020, and prior chest x-ray reports delio mirza this year. There is no pneumothorax suspected. There are no pleural effusions. The cardiomediastinal silhouette is prominent but magnified on this AP technique. There are no osseous abnormalities identified. IMPRESSION: Diffuse abnormal reticulonodular airspace disease, not significant change compared to Ap ril. Consider chronic infectious process. Reviewed, dictated and finalized at location B. IMPRESSION: Diffuse abnormal reticulonodular airspace disease, not significant change compared to January. Consider chronic infectious process.
--- NOTE | ~2021-06-22 | XR_ITS ---
EXAMINATION: XR chest 1V portable INDICATION: Shortness of breath TECHNIQUE: Portable AP chest at 0531 hours COMPARISON: 06/22/2021 FINDINGS: Again noted are widespread reticular and nodular opacities with slight worsening in the rig ht upper lung zone. There is no pleural effusion or pneumothorax. The cardiomediastinal silhouette is normal. IMPRESSION: 1. Widespread reticular nodular opacities with slight worsening in the right upper lung zone which co uld reflect acute on chronic infection/inflammation. Reviewed, dictated and finalized at location A. IMPRESSION: 1. Widespread reticular nodular opacities with slight worsening in the right up per lung zone which could reflect acute on chronic infection/inflammation.
--- NOTE | ~2021-06-22 | US_ITS ---
EXAMINATION: US venous doppler [facility] DATE: 06/23/2021 10:59 INDICATION: Bilateral lower limb swelling TECHNIQUE: Cai scale images without and with compression and Doppler images of the bilateral lower e xtremity veins were obtained. COMPARISON: 02/15/2021 FINDINGS: The right common femoral vein, profunda femoral vein, femoral vein, popliteal vein, peroneal trunk, p osterior tibial veins, and greater saphenous vein are patent. The left common femoral vein, profunda femoral vein, femoral vein, popliteal vein, peroneal trunk, po sterior tibial veins, and greater saphenous vein are patent. IMPRESSION: 1. Patent bilateral lower extremity veins. No evidence of deep venous thrombosis. Reviewed, dictated and finalized at location A. IMPRESSION: 1. Patent bilateral lower extremity veins. No evidence of deep venous thrombosi s.
--- NOTE | 2021-06-22 12:02 | ECG_ITS ---
Measurements Intervals [place] Rate: 74 P: 59 FL: 175 QRS: 69 QRSD: 102 T: 66 QT: 358 QTc: 399 Interpretive Statements SINUS RHYTHM WITH SINUS ARRHYTHMIA BASELINE ARTIFACT- I, II, III, AVR, AVF, V1-V6 NORMAL ECG Electronically Signed On 06-22-2021 12:53:58 CDT by Julien Ku D.O.
--- NOTE | 2021-06-22 12:46 | ED.GENADULT ---
HPI - General Adult General Chief complaint: Shortness of Breath/Dyspnea Stated complaint: SOB Time Seen by Provider: 06/22/21 12:46 History of Present Illness HPI narrative: Patient is 70-year-old gentleman who presents the emergency department with chief complaint of shortness of breath. The patient reports that he has history of COPD and is normally on 3 L of oxygen and noticed over the last several weeks he has been having increasing shortness of breath. The patient states he was getting to see his doctor today but whenever he was ambulating on his 3 L got very short of breath. The patient called EMS when EMS arrived they found his pulse ox to be in the 80s on 3 L they decreased his oxygen to 4 L and his pulse ox improved to the low 90s. The patient reports that he has not been vaccinated for COVID-19 reports has not had any fevers or body aches but does report that he has had a cough that has been productive. Related Data Home Medications Medication Instructions Recorded Confirmed aspirin 81 mg PO DAILY 11/05/19 05/06/21 budesonide-formoterol [Symbicort] 2 puff INHALATION DAILY 01/25/20 05/06/21 Neuriva De-Stress % 12/10/20 atorvastatin 06/22/21 clopidogrel 06/22/21 fluoxetine mg 06/22/21 furosemide 06/22/21 hydrochlorothiazide 06/22/21 ipratropium-albuterol ml INHALATION 06/22/21 lisinopril 06/22/21 omeprazole 06/22/21 phenytoin sodium extended PO 06/22/21 topiramate 06/22/21 Allergies Allergy/AdvReac Type Severity Reaction Status Date / Time No Known Allergies Allergy Verified 06/22/21 12:17 Review of Systems Review of Systems: A 10 system review of systems was completed on the patient and is negative except for what is stated in the HPI. Nursing and ancillary documentation was reviewed. [facility] Past Medical History Medical History Bronchiectasis Apparently uses vibratory vest b.i.d. for [address] Wang. Chronic back pain Colon cancer screening COPD (chronic obstructive pulmonary disease) Diastolic dysfunction Echocardiogram in November 06, 2019 showed mild increase in LV wall thickness, grossly normal LV wall motion, ejection fraction estimated > 70%, grade 1 diastolic dysfunction, and mild tricuspid valve regurgitation. Dysphagia Hyperlipidemia Hypertension Macrocytic anemia Obstructive sleep apnea On home O2 PAD (peripheral artery disease) Prostate cancer Status post radiation. On anti androgens. Secondary pulmonary hypertension Noted on echocardiogram 11/06/2019 with an estimated peak RVSP of 70 millimeters of mercury. Seizure disorder Surgical History Surgical History History of AAA (abdominal aortic aneurysm) repair History of vascular surgery Stents to bilateral lower extremities. Family History Family History Other Diabetes mellitus Family history of coronary artery disease Social History Social History Social History: The patient is live in [place]. They have 4 children. He designates his , Jeanette, as his surrogate decision maker. He is currently listed as a full code at the urging of his . He has smoked for 55 years, smoking as much as 2 packs of cigarettes per day for 10 years. It is unclear if or when he actually has quit smoking. No alcohol or drug use. Smoking packs per day: 1 Smoking cigarettes per day: 20.0 Years smoked: 48 Smoking pack-years: 48.00 Smoking status: Former smoker Tobacco type: cigarettes Smoking end date: 10/08/10 Alcohol intake: never Substance use: never Substance use type: does not use Gender identity (if verbalized by the patient): Male Spiritual care concerns: No Agree to blood products: Yes Exam Narrative: GENE
[2021-06-22] MEDS: methylPREDNISolone SOD SUCC 125 MG VIAL IV PUSH (12:59)
[2021-06-22] MEDS: ALBUTEROL SULFATE NEB 2.5 MG/0.5 ML INH 5 MG INHALATION (13:00)
[2021-06-22] MEDS: IPRATROPIUM BR 0.02% INH SOLN 0.5 MG/2.5 ML VIAL INHALATION (13:00)
[2021-06-22 14:50] LABS: Alveolar/Arterial O2 Gradient 137.2 mmHg; Base Excess ABG 12.7 mEq/l (+/-2.0); Carboxyhemoglobin 1.4 % THb (0-2.0); Fractional Inspired Oxygen 40 %; HCO3 ABG 41.5 mEq/l (22.0-26.0); Methemoglobin ABG 0.2 %THb (0-1.5); Oxygen Saturation ABG 88.7 % (95.0-100.0); Oxyhemoglobin 88.7 % THb (90.0-100.0); PO2 ABG 60.3 mmHg (80.0-100.0); PO2 FiO2 Ratio Arterial Blood 1.51 %; Reduced Hemoglobin 9.7 %THb (0-5.0); Total Hemoglobin 12.8 g/dL (12.0-18.0); pH ABG 7.353 (7.350-7.450)
[2021-06-22 15:01] LABS: Basophils Absolute Auto 0.1 K/mm3 (0.0-0.1); Basophils Percent Auto 0.6 % (0.2-1.2); Eosinophils Absolute Auto 0.6 K/mm3 (0-0.3); Eosinophils Percent Auto 6.7 % (0-4.4); Hematocrit 37.5 % (42.0-52.0); Hemoglobin 11.8 g/dL (14.0-18.0); Immature Granulocyte Absolute 0.06 K/mm3 (0.00-0.031); Immature Granulocyte Percent A 0.7 % (0-0.5); Lymphocytes Absolute Auto 0.82 K/mm3 (0.9-3.2); Lymphocytes Percent Auto 9.3 % (18.3-44.2); Mean Corpuscular HGB Conc 31.5 g/dl (32-36); Mean Corpuscular Hemoglobin 31.5 pg (26-34); Mean Platelet Volume 9.7 fl (7.4-10.4); Monocytes Absolute Auto 1.1 K/mm3 (0.1-0.6); Monocytes Percent Auto 12.4 % (2.6-8.5); Neutrophils Absolute Auto 6.2 K/mm3 (1.3-6.7); Neutrophils Percent Auto 70.3 % (45.5-73.1); PCO2 ABG 76.3 mmHg (35.0-45.0); Platelet Count Result 178 k/mm3 (150-375); Red Blood Count 3.75 M/mm3 (4.6-6.20); Red Cell Distribution Width 15.7 % (11.5-14.5); White Blood Count 8.8 K/mm3 (4.5-10.0)
[2021-06-22 15:45] LABS: Anion Gap 5 mmol/L (8-16); Carbon Dioxide 39 mmol/L (22-30); Chloride 85 mmol/L (98-107); Potassium 4.1 mmol/L (3.4-5.0); Sodium 129 mmol/L (137-145)
[2021-06-22 15:46] LABS: Blood Urea Nitrogen 22 mg/dL (9-20); Calcium 8.6 mg/dL (8.4-10.2); Estimated CRCL calculation 79 ml/min; Estimated Glomerular Filt Rate > 60; Glucose 71 mg/dL (65-110); NT Pro B Type Natriuretic Pept 54 pg/mL (5-100); Troponin I < 0.012 ng/mL (0.000-0.034)
[2021-06-22 16:04] LABS: Device NASAL CANNULA; Modified Allen's Test Pass; Site Drawn LEFT RADIAL
[2021-06-22 16:39] LABS: INR 0.9; Partial Thromboplastin Time 29.2 SECONDS (22.3-36.8); Prothrombin Time 12.2 Seconds (11.1-14.7)
[2021-06-22] MEDS: methylPREDNISolone SOD SUCC 125 MG VIAL 60 MG IV PUSH (22:48)
--- NOTE | 2021-06-22 23:22 | PM.IMHP ---
H&P: HPI History of Present Illness Date/Time: 06/22/21 23:22 this is a 70-year-old male patient who has chronic hypoxic again is typically on oxygen at 3 L per nasal cannula. He also has COPD and he wears a vibrating vest twice a day. The patient came to the emergency room with complaints of shortness of breath. The patient has been hospitalized multiple times for COPD. Over the last several weeks the patient has increasing shortness of breath. The patient states he going to see the doctor but whenever he ambulates on the 3 L he gets very short of breath easily. Patient's pulse ox was found to be 80s on 3 L and was increased oxygen at 4 L per nasal cannula and then his oxygen levels came up to 90%. The patient reports that he has not been vaccinated for COVID-19. He has not had any fever chills but states that he has been having a cough that is productive. Chest x-ray was read as diffuse abnormal reticulonodular airspace disease, not significant change compared January. Consider chronic infectious process. The patient was started on azithromycin Rocephin, nebulizer treatment and Solu-Medrol. The patient also complained of increased edema to lower extremities. H&H 11.8 and 37.5. Arterial blood gases pH 7.353 and CO2 76.2. After reviewing his previous ABGs it looks like patient is a CO2 retainer. Sodium 129. Patient's COVID PCR is pending. The patient is being admitted for observation status on the date of service of 06/22/2021 Chief Complaint: Shortness of breath Review of Systems Review of Systems: All systems reviewed & are unremarkable except as noted in HPI and below Constitutional: Constitutional: Reports as per HPI and Reports no additional constitutional complaints Eyes: Eyes: Reports as per HPI and Reports no additional eye complaints ENT: Reports system reviewed and no additional complaints, except as documented and Reports Normal hearing present Cardiovascular: Cardiovascular: Reports no additional cardiovascular complaints Respiratory: Respiratory: Reports no additional respiratory complaints and Reports no additional respiratory complaints Gastrointestinal: Gastrointestinal: Reports as per HPI and Reports no additional gastrointestinal complaints Musculoskeletal: Musculoskeletal: Reports no additional musculoskeletal complaints Integumentary/Breasts: Skin/Breast: Reports system reviewed and no additional complaints, except as docu and Reports as per HPI Neurologic: Reports system reviewed and no additional complaints, except as documented, Reports as per HPI and Reports Normal hearing present Psychiatric: Psychiatric: Reports no additional psychiatric complaints and Reports as per HPI Endocrine: Endocrine: Reports no additional endocrine complaints Hematologic/Lymphatic: Hematologic/Lymphatic: Reports no additional hematologic/lymphatic complaints Allergic/Immunologic: Allergic/Immunologic: Reports no additional allergic/immunologic complaints [facility] Past Medical History Medical History (Updated 06/22/21 @ 23:45 by Mirian Medina NP) Bronchiectasis Apparently uses vibratory vest b.i.d. for [address] Wang. Chronic back pain Colon cancer screening COPD (chronic obstructive pulmonary disease) Diastolic dysfunction Echocardiogram in November 06, 2019 showed mild increase in LV wall thickness, grossly normal LV wall motion, ejection fraction estimated > 70%, grade 1 diastolic dysfunction, and mild tricuspid valve regurgitation. Dysphagia Hyperlipidemia Hypertension Macrocytic anemia Obstructive sleep apnea On home O2 PAD (peripheral artery disease) Prostate cancer Status post radiation. On anti androgens. Secondary pulmonary hypertension Noted on echocardiogram 11/06/2019 with an estimated peak RVSP of 70 millimeters of mercury. Seizure disorder Surgical History Surgical History (Updated 06/22/21 @ 23:36 by Mirian Medina NP) H/O eye surgery Left eye History of AAA (ab
[2021-06-23] VITALS (11 sets, daily range): BP systolic 140–163; BP diastolic 51–71; PULSE 60–71; RESP 18–25; TEMP 36.2–36.7; O2SAT 92–98
[2021-06-23] MEDS: ALBUTEROL SULFATE (*SP) INHALER 2 PUFF INHALATION ×2 (02:45→08:23)
[2021-06-23] MEDS: methylPREDNISolone SOD SUCC 125 MG VIAL 60 MG IV PUSH ×3 (05:17→20:42)
[2021-06-23 07:01] LABS: Basophils Percent Auto 0.3 % (0.2-1.2); Eosinophils Absolute Auto 0.4 K/mm3 (0-0.3); Eosinophils Percent Auto 4.4 % (0-4.4); Hemoglobin 12.4 g/dL (14.0-18.0); Immature Granulocyte Absolute 0.07 K/mm3 (0.00-0.031); Immature Granulocyte Percent A 0.8 % (0-0.5); Lymphocytes Absolute Auto 0.63 K/mm3 (0.9-3.2); Lymphocytes Percent Auto 7.1 % (18.3-44.2); Mean Corpuscular HGB Conc 31.8 g/dl (32-36); Mean Corpuscular Hemoglobin 31.5 pg (26-34); Mean Platelet Volume 9.5 fl (7.4-10.4); Monocytes Absolute Auto 0.6 K/mm3 (0.1-0.6); Monocytes Percent Auto 7.1 % (2.6-8.5); Neutrophils Absolute Auto 7.2 K/mm3 (1.3-6.7); Neutrophils Percent Auto 80.3 % (45.5-73.1); Platelet Count Result 177 k/mm3 (150-375); Red Blood Count 3.94 M/mm3 (4.6-6.20); Red Cell Distribution Width 15.7 % (11.5-14.5); White Blood Count 8.9 K/mm3 (4.5-10.0)
[2021-06-23 07:19] LABS: Lactic Acid Reflex 0.7 mmol/L (0.7-2.1)
[2021-06-23 07:25] LABS: Alanine Aminotransferase 16 U/L (4-50); Albumin Level 3.7 g/dL (3.5-5.1); Alkaline Phosphatase 150 U/L (38-126); Anion Gap 8 mmol/L (8-16); Aspartate Amino Transferase 27 U/L (17-59); Bilirubin,Total 0.4 mg/dL (0.2-1.3); Blood Urea Nitrogen 19 mg/dL (9-20); Calcium 8.5 mg/dL (8.4-10.2); Carbon Dioxide 37 mmol/L (22-30); Chloride 84 mmol/L (98-107); Estimated CRCL calculation 80 ml/min; Estimated Glomerular Filt Rate > 60; Glucose 100 mg/dL (65-110); Lactate Dehydrogenase 352 U/L (313-618); Potassium 4.3 mmol/L (3.4-5.0); Sodium 129 mmol/L (137-145)
--- NOTE | 2021-06-23 07:43 | P.PNIM_ITS ---
Progress Note: A&P Assessment and Plan (1) Acute on chronic respiratory failure with hypoxia and hypercapnia: Code(s): J96.21 - Acute and chronic respiratory failure with hypoxia; J96.22 - Acute and chronic respiratory failure with hypercapnia Status: Acute Assessment and Plan: * Chronic oxygen 3LNC at home * ABG shows compensated resp acidosis pH 7.353, pCO2 76.3, pO2 60.3, HCO3 41.5, Sat 88.7 (06/22/21) * Chest ray shows possible chronic infection (06/22/21) * supplemental oxygen to maintain saturation >90% * Last visit patient was intubated * CPAP at night * Trend SPO2 * PT/OT (2) COPD exacerbation: Code(s): J44.1 - Chronic obstructive pulmonary disease with (acute) exacerbation Status: Acute Assessment and Plan: * COPD exacerbation acute on chronic * Chest xray shows Diffuse abnormal reticulonodular airspace disease, not significant change compared to January. Consider chronic infectious process. * azithromycin and Rocephin * inhaler albuterol and symbicort * Solu-Medrol 60mg IV Q8hr * CPT or cornette therapy which ever is available * Supplemental oxygen wean to maintain saturation >90% * Home O2 3LNC (3) Asthma exacerbation in COPD: Code(s): J44.1 - Chronic obstructive pulmonary disease with (acute) exacerbation; J45.901 - Unspecified asthma with (acute) exacerbation Status: Acute Assessment and Plan: * See above (4) Suspected COVID-19 virus infection: Code(s): R68.89 - Other general symptoms and signs Status: Acute Assessment and Plan: * Covid swab pending * droplet and contact isolation for now * Solu-Medrol 60mg IV Q8hr * Supplemental oxygen wean to maintain saturation >90% (5) Hypertension: Qualifiers: Hypertension type: essential hypertension Qualified Code(s): I10 - Essential (primary) hypertension Code(s): I10 - Essential (primary) hypertension Status: Acute Assessment and Plan: * Current BP 163/69 * Continue home lisinopril 20mg PO daily, hydrochlorothiazide 12.5 PO Daily, and Lasix 20mg PO daily * Trend BP * Adjust medications as needed (6) Obstructive sleep apnea: Code(s): G47.33 - Obstructive sleep apnea (adult) (pediatric) Status: Acute Assessment and Plan: * Continue with home treatment * Cpap/Bipap ordered (7) Seizure disorder: Code(s): G40.909 - Epilepsy, unspecified, not intractable, without status epilepticus Status: Acute Assessment and Plan: * Continue home phenytoin if patient is still on topiramate * Phenytoin levels low on labs * Might need dosing adjustments if still on it (8) Depression with anxiety: Code(s): F41.8 - Other specified anxiety disorders Status: Acute Assessment and Plan: * Continue with Prozac * Monitor mood (9) Diastolic dysfunction: Code(s): I51.89 - Other ill-defined heart diseases Status: Chronic Assessment and Plan: * Echo from Oct shows wall thickness * Complaints of BLE edema * Repeat echo ordered * Could be contributing to shortness of breath * Could possibly be CHF, new onset since no report of history, but lasix 20mg PO daily * BNP 54 * venous dopple to BLE Time Spent With Patient Time with patient: Greater than 35 minutes Subjective Date/time seen: 06/23/21 07:43
--- NOTE | 2021-06-23 07:43 | PM.IMPN ---
Progress Note: A&P Assessment and Plan (1) Acute on chronic respiratory failure with hypoxia and hypercapnia: Code(s): J96.21 - Acute and chronic respiratory failure with hypoxia; J96.22 - Acute and chronic respiratory failure with hypercapnia Status: Acute Assessment and Plan: Chronic oxygen 3LNC at home ABG shows compensated resp acidosis pH 7.353, pCO2 76.3, pO2 60.3, HCO3 41.5, Sat 88.7 (06/22/21) Chest ray shows possible chronic infection (06/22/21) supplemental oxygen to maintain saturation >90% Last visit patient was intubated CPAP at night Trend SPO2 PT/OT (2) COPD exacerbation: Code(s): J44.1 - Chronic obstructive pulmonary disease with (acute) exacerbation Status: Acute Assessment and Plan: COPD exacerbation acute on chronic Chest xray shows Diffuse abnormal reticulonodular airspace disease, not significant change compared to January. Consider chronic infectious process. azithromycin and Rocephin inhaler albuterol and symbicort Solu-Medrol 60mg IV Q8hr CPT or cornette therapy which ever is available Supplemental oxygen wean to maintain saturation >90% Home O2 3LNC (3) Asthma exacerbation in COPD: Code(s): J44.1 - Chronic obstructive pulmonary disease with (acute) exacerbation; J45.901 - Unspecified asthma with (acute) exacerbation Status: Acute Assessment and Plan: See above (4) Suspected COVID-19 virus infection: Code(s): R68.89 - Other general symptoms and signs Status: Acute Assessment and Plan: Covid swab pending droplet and contact isolation for now Solu-Medrol 60mg IV Q8hr Supplemental oxygen wean to maintain saturation >90% (5) Hypertension: Qualifiers: Hypertension type: essential hypertension Qualified Code(s): I10 - Essential (primary) hypertension Code(s): I10 - Essential (primary) hypertension Status: Acute Assessment and Plan: Current BP 163/69 Continue home lisinopril 20mg PO daily, hydrochlorothiazide 12.5 PO Daily, and Lasix 20mg PO daily Trend BP Adjust medications as needed (6) Obstructive sleep apnea: Code(s): G47.33 - Obstructive sleep apnea (adult) (pediatric) Status: Acute Assessment and Plan: Continue with home treatment Cpap/Bipap ordered (7) Seizure disorder: Code(s): G40.909 - Epilepsy, unspecified, not intractable, without status epilepticus Status: Acute Assessment and Plan: Continue home phenytoin if patient is still on topiramate Phenytoin levels low on labs Might need dosing adjustments if still on it (8) Depression with anxiety: Code(s): F41.8 - Other specified anxiety disorders Status: Acute Assessment and Plan: Continue with Prozac Monitor mood (9) Diastolic dysfunction: Code(s): I51.89 - Other ill-defined heart diseases Status: Chronic Assessment and Plan: Echo from Oct shows wall thickness Complaints of BLE edema Repeat echo ordered Could be contributing to shortness of breath Could possibly be CHF, new onset since no report of history, but lasix 20mg PO daily BNP 54 venous dopple to BLE Time Spent With Patient Time with patient: Greater than 35 minutes Subjective Date/time seen: 06/23/21 07:43 Interval history: Patient is a 70 year old male who is here for shortness of breath. Patient stated that he is just very short of breath. Feels ok when getting up. He did state that worse SOB with activity. He also wears a CPAP at home. He did states that he is eating fine. He has a cough that is non-productive. Patient does seem short of breath just walking around the bed. He denies chest pain, weakness, fatigue, fevers, sweats, or chills. He did talk about his bilateral lower extremity swelling which he did state was better. He did say that the left is always worse the
[2021-06-23] MEDS: FLUoxetine HCL 10 MG CAPSULE PO (09:05)
[2021-06-23] MEDS: lisinopriL 20 MG TABLET PO (09:05)
[2021-06-23] MEDS: FUROSEMIDE 20 MG TABLET PO (09:05)
[2021-06-23] MEDS: CLOPIDOGREL BISULFATE 75 MG TABLET PO (09:05)
[2021-06-23] MEDS: PHENYTOIN SODIUM 100 MG CAP PO (09:05)
[2021-06-23] MEDS: ATORVASTATIN 40 MG TABLET PO (09:05)
[2021-06-23] MEDS: hydroCHLOROthiazide 12.5 MG CAPSULE PO (09:06)
[2021-06-23] MEDS: ENOXAPARIN 40 MG/0.4 ML SYRINGE SUB-Q (09:06)
[2021-06-23] MEDS: ASPIRIN 81 MG ENTERIC TABLET PO (10:13)
[2021-06-23] MEDS: PHENYTOIN SODIUM 100 MG CAP 200 MG PO ×2 (14:10→17:40)
[2021-06-23 19:52] LABS: SARS-CoV-2 RNA PCR Negative
[2021-06-23] MEDS: IPRATROPIUM BR 0.02% INH SOLN 0.5 MG/2.5 ML VIAL INHALATION (21:51)
[2021-06-23] MEDS: ALBUTEROL SULFATE NEB 2.5 MG/0.5 ML INH INHALATION (21:51)
[2021-06-24] VITALS (7 sets, daily range): BP systolic 124–171; BP diastolic 53–62; PULSE 55–64; RESP 18–23; TEMP 36.1–36.6; O2SAT 92–97
--- NOTE | 2021-06-24 | ECHO_ITS ---
Patient Info Name: Quentin Zavaleta Age: 70 years : 1950 Gender: Male Ht: 68 in Wt: 234 lbs BSA: 2.30 m2 HR: 62 bpm BP: 160 / 69 mmHg Heart Rhythm: Sinus Rhythm Exam Date: 06/24/2021 10:50 AM Exam Location: [facility] Patient Status: Inpatient Admit Date: 06/24/2021 Staff Ordering Physician: Mirian Medina NP Director Visual: Kanika Hays RDCS Attending Provider: Talon Centeno MD Referring Physician: Adam BRADY; Exam Type: CA echo dop color flow w con Study Info Indications - DIASTOLIC DYSFUNCTION AND EDEMA Complete two-dimensional, color flow and Doppler transthoracic echocardiogram is performed with contrast to opacify the left ventricle and to improve the deliniation of the left ventricle endocardial borders. Contrast/Agitated Saline Contrast/Ag. Saline: Definity Amount: 1.00 ml IV Access Condition: patent with no signs of infiltration New IV Access: Dorsum of Hand and Left Summary 1. Definity contrast used to improve visualization. 2. Left ventricular systolic function is normal, estimated at 65-70%. 3. The left ventricular diastolic function is grade II diastolic dysfunction. 4. Left atrial chamber dimension is mildly enlarged. 5. Compared to previous exam not much change. 6. Cannot accurately comment on PA pressure since tricuspid insufficiency was not seen. Left Ventricle Left ventricular chamber dimension is normal. Left ventricular systolic function is normal, estimated at 65-70%. The left ventricular diastolic function is grade II diastolic dysfunction. Definity contrast used to improve visualization. Right Ventricle Right ventricular chamber dimension is normal. Left Atria Left atrial chamber dimension is mildly enlarged. Right Atria Right atrial chamber dimension is normal. Aortic Valve The aortic valve is trileaflet. There is mild aortic valve sclerosis. Pulmonic Valve The pulmonic valve is not well visualized. Mitral Valve The mitral valve has normal leaflets. Tricuspid Valve The tricuspid valve leaflets are normal. Pericardium/Pleural The pericardium appears normal. Aorta The aortic root size at the sinus of Valsalva is normal. Left Ventricular Outflow Tract Name Value Normal LVOT 2D LVOT Diameter 2.10 cm LVOT Doppler LVOT Peak Gradient 5 mmHg LVOT Mean Gradient 3 mmHg LVOT VTI 28.44 cm LVOT VTI/AV VTI Ratio 0.83 LVOT Stroke Volume 98.54 ml LVOT CO 17.12 l/min LVOT CI 7.85 L/min/m2 Pulmonic Valve Name Value Normal PV Doppler PV Peak Gradient 3 mmHg Mitral Valve
[2021-06-24 06:25] LABS: Basophils Percent Auto 0.4 % (0.2-1.2); Eosinophils Absolute Auto 0.1 K/mm3 (0-0.3); Eosinophils Percent Auto 0.6 % (0-4.4); Hematocrit 36.5 % (42.0-52.0); Hemoglobin 11.9 g/dL (14.0-18.0); Immature Granulocyte Absolute 0.04 K/mm3 (0.00-0.031); Immature Granulocyte Percent A 0.5 % (0-0.5); Lymphocytes Absolute Auto 0.83 K/mm3 (0.9-3.2); Lymphocytes Percent Auto 9.8 % (18.3-44.2); Mean Corpuscular HGB Conc 32.6 g/dl (32-36); Mean Corpuscular Hemoglobin 31.2 pg (26-34); Mean Corpuscular Volume 95.5 fl (80-100); Mean Platelet Volume 9.5 fl (7.4-10.4); Monocytes Absolute Auto 1.1 K/mm3 (0.1-0.6); Monocytes Percent Auto 12.7 % (2.6-8.5); Neutrophils Absolute Auto 6.5 K/mm3 (1.3-6.7); Platelet Count Result 201 k/mm3 (150-375); Red Blood Count 3.82 M/mm3 (4.6-6.20); Red Cell Distribution Width 15.6 % (11.5-14.5); White Blood Count 8.5 K/mm3 (4.5-10.0)
[2021-06-24] MEDS: methylPREDNISolone SOD SUCC 125 MG VIAL 60 MG IV PUSH (06:48)
[2021-06-24 06:50] LABS: Alanine Aminotransferase 17 U/L (4-50); Albumin Level 3.8 g/dL (3.5-5.1); Alkaline Phosphatase 124 U/L (38-126); Aspartate Amino Transferase 29 U/L (17-59); Bilirubin,Total 0.2 mg/dL (0.2-1.3); Blood Urea Nitrogen 19 mg/dL (9-20); Calcium 8.7 mg/dL (8.4-10.2); Carbon Dioxide > 40 mmol/L (22-30); Chloride 82 mmol/L (98-107); Estimated CRCL calculation 80 ml/min; Estimated Glomerular Filt Rate > 60; Glucose 87 mg/dL (65-110); Potassium 4.4 mmol/L (3.4-5.0); Sodium 126 mmol/L (137-145)
[2021-06-24] MEDS: ASPIRIN 81 MG ENTERIC TABLET PO (09:10)
[2021-06-24] MEDS: ATORVASTATIN 40 MG TABLET PO (09:11)
[2021-06-24] MEDS: FLUoxetine HCL 10 MG CAPSULE PO (09:11)
[2021-06-24] MEDS: ENOXAPARIN 40 MG/0.4 ML SYRINGE SUB-Q (09:11)
[2021-06-24] MEDS: FUROSEMIDE 20 MG TABLET PO (09:12)
[2021-06-24] MEDS: CLOPIDOGREL BISULFATE 75 MG TABLET PO (09:12)
[2021-06-24] MEDS: lisinopriL 20 MG TABLET PO (09:12)
[2021-06-24] MEDS: hydroCHLOROthiazide 12.5 MG CAPSULE PO (09:12)
[2021-06-24] MEDS: PHENYTOIN SODIUM 100 MG CAP 200 MG PO ×3 (09:19→18:56)
[2021-06-24] MEDS: ALBUTEROL SULFATE (*SP) INHALER 2 PUFF INHALATION ×3 (09:24→20:19)
[2021-06-24 11:10] LABS: NT Pro B Type Natriuretic Pept 99 pg/mL (5-100)
[2021-06-24] MEDS: PERFLUTREN LIPID MICROSPHERES 1.5 ML VIAL DILUTED TO 10 ML TOTAL VOLUME IV PUSH (11:10)
[2021-06-24] MEDS: acetaZOLAMIDE SODIUM FOR INJ 500 MG VIAL IV PUSH (12:06)
--- NOTE | 2021-06-24 13:40 | P.PNIM_ITS ---
Progress Note: A&P Assessment and Plan (1) Acute on chronic respiratory failure with hypoxia and hypercapnia: Code(s): J96.21 - Acute and chronic respiratory failure with hypoxia; J96.22 - Acute and chronic respiratory failure with hypercapnia Status: Acute Assessment and Plan: * Chronic oxygen 3LNC at home * ABG shows compensated resp acidosis pH 7.353, pCO2 76.3, pO2 60.3, HCO3 41.5, Sat 88.7 (06/22/21) * Chest ray shows possible chronic infection (06/22/21) * supplemental oxygen to maintain saturation >90%, back to baseline oxygen needs * IV antibiotics * Last visit patient was intubated * CPAP at night * Trend SPO2 * PT/OT (2) COPD exacerbation: Code(s): J44.1 - Chronic obstructive pulmonary disease with (acute) exacerbation Status: Acute Assessment and Plan: * COPD exacerbation acute on chronic * Chest xray shows Diffuse abnormal reticulonodular airspace disease, not significant change compared to January. Consider chronic infectious process. * azithromycin and Rocephin * inhaler albuterol and symbicort * Solu-Medrol 60mg IV Q8hr, changed to prednisone 50mg PO daily * CPT or cornette therapy which ever is available * Supplemental oxygen wean to maintain saturation >90% * Home O2 3LNC (3) Asthma exacerbation in COPD: Code(s): J44.1 - Chronic obstructive pulmonary disease with (acute) exacerbation; J45.901 - Unspecified asthma with (acute) exacerbation Status: Acute Assessment and Plan: * See above (4) Suspected COVID-19 virus infection: Code(s): R68.89 - Other general symptoms and signs Status: Acute Assessment and Plan: * Covid swab pending * droplet and contact isolation for now * Solu-Medrol 60mg IV Q8hr, changed to 50mg PO daily * Supplemental oxygen wean to maintain saturation >90% (5) Hypertension: Qualifiers: Hypertension type: essential hypertension Qualified Code(s): I10 - Essential (primary) hypertension Code(s): I10 - Essential (primary) hypertension Status: Acute Assessment and Plan: * Current BP 171/59 * Continue home lisinopril 20mg PO daily, hydrochlorothiazide 12.5 PO Daily, and Lasix 20mg PO daily * Trend BP * Adjust medications as needed (6) Obstructive sleep apnea: Code(s): G47.33 - Obstructive sleep apnea (adult) (pediatric) Status: Acute Assessment and Plan: * Continue with home treatment * Cpap/Bipap ordered (7) Seizure disorder: Code(s): G40.909 - Epilepsy, unspecified, not intractable, without status epilepticus Status: Acute Assessment and Plan: * Continue home phenytoin if patient is still on topiramate * Phenytoin levels low on labs * Might need dosing adjustments if still on it (8) Depression with anxiety: Code(s): F41.8 - Other specified anxiety disorders Status: Acute Assessment and Plan: * Continue with Prozac * Monitor mood (9) Diastolic dysfunction: Code(s): I51.89 - Other ill-defined heart diseases Status: Chronic Assessment and Plan: * Echo from Oct shows wall thickness * Complaints of BLE edema * Repeat echo pending * Could be contributing to shortness of breath * Could possibly be CHF, new onset since no report of history, but lasix 20mg PO daily * BNP 99 * venous dopple to BLE
--- NOTE | 2021-06-24 13:40 | PM.IMPN ---
Progress Note: A&P Assessment and Plan (1) Acute on chronic respiratory failure with hypoxia and hypercapnia: Code(s): J96.21 - Acute and chronic respiratory failure with hypoxia; J96.22 - Acute and chronic respiratory failure with hypercapnia Status: Acute Assessment and Plan: Chronic oxygen 3LNC at home ABG shows compensated resp acidosis pH 7.353, pCO2 76.3, pO2 60.3, HCO3 41.5, Sat 88.7 (06/22/21) Chest ray shows possible chronic infection (06/22/21) supplemental oxygen to maintain saturation >90%, back to baseline oxygen needs IV antibiotics Last visit patient was intubated CPAP at night Trend SPO2 PT/OT (2) COPD exacerbation: Code(s): J44.1 - Chronic obstructive pulmonary disease with (acute) exacerbation Status: Acute Assessment and Plan: COPD exacerbation acute on chronic Chest xray shows Diffuse abnormal reticulonodular airspace disease, not significant change compared to January. Consider chronic infectious process. azithromycin and Rocephin inhaler albuterol and symbicort Solu-Medrol 60mg IV Q8hr, changed to prednisone 50mg PO daily CPT or cornette therapy which ever is available Supplemental oxygen wean to maintain saturation >90% Home O2 3LNC (3) Asthma exacerbation in COPD: Code(s): J44.1 - Chronic obstructive pulmonary disease with (acute) exacerbation; J45.901 - Unspecified asthma with (acute) exacerbation Status: Acute Assessment and Plan: See above (4) Suspected COVID-19 virus infection: Code(s): R68.89 - Other general symptoms and signs Status: Acute Assessment and Plan: Covid swab pending droplet and contact isolation for now Solu-Medrol 60mg IV Q8hr, changed to 50mg PO daily Supplemental oxygen wean to maintain saturation >90% (5) Hypertension: Qualifiers: Hypertension type: essential hypertension Qualified Code(s): I10 - Essential (primary) hypertension Code(s): I10 - Essential (primary) hypertension Status: Acute Assessment and Plan: Current BP 171/59 Continue home lisinopril 20mg PO daily, hydrochlorothiazide 12.5 PO Daily, and Lasix 20mg PO daily Trend BP Adjust medications as needed (6) Obstructive sleep apnea: Code(s): G47.33 - Obstructive sleep apnea (adult) (pediatric) Status: Acute Assessment and Plan: Continue with home treatment Cpap/Bipap ordered (7) Seizure disorder: Code(s): G40.909 - Epilepsy, unspecified, not intractable, without status epilepticus Status: Acute Assessment and Plan: Continue home phenytoin if patient is still on topiramate Phenytoin levels low on labs Might need dosing adjustments if still on it (8) Depression with anxiety: Code(s): F41.8 - Other specified anxiety disorders Status: Acute Assessment and Plan: Continue with Prozac Monitor mood (9) Diastolic dysfunction: Code(s): I51.89 - Other ill-defined heart diseases Status: Chronic Assessment and Plan: Echo from Oct shows wall thickness Complaints of BLE edema Repeat echo pending Could be contributing to shortness of breath Could possibly be CHF, new onset since no report of history, but lasix 20mg PO daily BNP 99 venous dopple to BLE Subjective Date/time seen: 06/24/21 11:15 Interval history: Patient is a 70-year-old male who is here for shortness of breath. Patient stated that he is ready to go home today however his labs are little off. His sodium is 126 any still very short of breath just talking to me. Patient stated that he is ready to go other is why he is here is because he took his oxygen off at home for few minutes and became very short of breath. When he put his oxygen back on he was unable to recuperate so came to the ED to make sure nothing was wrong. Patient still has 3+ pitting e
[2021-06-25] VITALS (9 sets, daily range): BP systolic 126–157; BP diastolic 54–61; PULSE 65–78; RESP 20–26; TEMP 36.4–36.7; O2SAT 92–100
[2021-06-25] MEDS: ALBUTEROL SULFATE (*SP) INHALER 2 PUFF INHALATION ×4 (02:35→21:38)
[2021-06-25] MEDS: ENOXAPARIN 40 MG/0.4 ML SYRINGE SUB-Q (08:55)
[2021-06-25] MEDS: ASPIRIN 81 MG ENTERIC TABLET PO (08:56)
[2021-06-25] MEDS: CLOPIDOGREL BISULFATE 75 MG TABLET PO (08:57)
[2021-06-25] MEDS: PHENYTOIN SODIUM 100 MG CAP 200 MG PO ×3 (08:57→18:56)
[2021-06-25] MEDS: hydroCHLOROthiazide 12.5 MG CAPSULE PO (08:57)
[2021-06-25] MEDS: FUROSEMIDE 20 MG TABLET PO (08:58)
[2021-06-25] MEDS: FLUoxetine HCL 10 MG CAPSULE PO (08:58)
[2021-06-25] MEDS: lisinopriL 20 MG TABLET PO (08:58)
[2021-06-25] MEDS: ATORVASTATIN 40 MG TABLET PO (08:58)
[2021-06-25] MEDS: predniSONE 40 MG, predniSONE 10 MG 50 MG PO (08:58)
[2021-06-25 10:40] LABS: Basophils Absolute Auto 0.1 K/mm3 (0.0-0.1); Basophils Percent Auto 0.6 % (0.2-1.2); Eosinophils Absolute Auto 0.4 K/mm3 (0-0.3); Hematocrit 40.9 % (42.0-52.0); Immature Granulocyte Absolute 0.05 K/mm3 (0.00-0.031); Immature Granulocyte Percent A 0.6 % (0-0.5); Lymphocytes Absolute Auto 0.91 K/mm3 (0.9-3.2); Lymphocytes Percent Auto 11.3 % (18.3-44.2); Mean Corpuscular HGB Conc 31.8 g/dl (32-36); Mean Corpuscular Hemoglobin 31.3 pg (26-34); Mean Corpuscular Volume 98.6 fl (80-100); Mean Platelet Volume 9.5 fl (7.4-10.4); Monocytes Percent Auto 12.1 % (2.6-8.5); Neutrophils Absolute Auto 5.7 K/mm3 (1.3-6.7); Neutrophils Percent Auto 70.4 % (45.5-73.1); Platelet Count Result 208 k/mm3 (150-375); Red Blood Count 4.15 M/mm3 (4.6-6.20); Red Cell Distribution Width 16.1 % (11.5-14.5); White Blood Count 8.1 K/mm3 (4.5-10.0)
[2021-06-25 10:56] LABS: Alanine Aminotransferase 21 U/L (4-50); Alkaline Phosphatase 131 U/L (38-126); Aspartate Amino Transferase 32 U/L (17-59); Bilirubin,Total 0.2 mg/dL (0.2-1.3); Blood Urea Nitrogen 19 mg/dL (9-20); Calcium 8.9 mg/dL (8.4-10.2); Carbon Dioxide > 40 mmol/L (22-30); Chloride 81 mmol/L (98-107); Estimated CRCL calculation 67 ml/min; Estimated Glomerular Filt Rate > 60; Glucose 140 mg/dL (65-110); Potassium 3.9 mmol/L (3.4-5.0); Sodium 125 mmol/L (137-145)
[2021-06-25] MEDS: FUROSEMIDE INJ 40 MG/4 ML VIAL 20 MG IV PUSH (16:00)
[2021-06-25 16:40] LABS: Alveolar/Arterial O2 Gradient 69.5 mmHg; Base Excess ABG 4.5 mEq/l (+/-2.0); Fractional Inspired Oxygen 32 %; HCO3 ABG 33.3 mEq/l (22.0-26.0); Oxygen Content ABG 16.8 %vol (16.0-22.0); Oxygen Saturation ABG 92.6 % (95.0-100.0); Oxyhemoglobin 92.4 % THb (90.0-100.0); PO2 ABG 74.2 mmHg (80.0-100.0); PO2 FiO2 Ratio Arterial Blood 2.32 %; Total Hemoglobin 12.9 g/dL (12.0-18.0)
[2021-06-25 16:44] LABS: pH ABG 7.282 (7.350-7.450)
[2021-06-25 16:45] LABS: PCO2 ABG 72.2 mmHg (35.0-45.0); Site Drawn LEFT RADIAL
[2021-06-25 16:46] LABS: Device NASAL CANNULA; Modified Allen's Test Pass
--- NOTE | 2021-06-25 18:41 | P.PNIM_ITS ---
Progress Note: A&P Assessment and Plan (1) Acute on chronic respiratory failure with hypoxia and hypercapnia: Code(s): J96.21 - Acute and chronic respiratory failure with hypoxia; J96.22 - Acute and chronic respiratory failure with hypercapnia Status: Acute Assessment and Plan: * Chronic oxygen 3LNC at home * ABG shows worsening resp acidosis pH 7.28, pCO2 72, pO2 74., HCO3 33, Sat 92.6 (06/22/21) * Chest ray shows possible chronic infection (06/25/21).Widespread reticular nodular opacities with slight worsening in the right upper lung zone which could reflect acute on chronic infection/inflammation. Rales on exam: added lasix 20 mg IV once today. * Pulmonary consult * supplemental oxygen to maintain saturation >90%, back to baseline oxygen needs * Continue IV antibiotics * Last visit patient was intubated * Continue CPAP at night * Trend SPO2 * PT/OT (2) COPD exacerbation: Code(s): J44.1 - Chronic obstructive pulmonary disease with (acute) exacerbation Status: Acute Assessment and Plan: * COPD exacerbation acute on chronic * Chest xray shows Diffuse abnormal reticulonodular airspace disease, not significant change compared to January. Consider chronic infectious process. * Continue azithromycin and Rocephin * inhaler albuterol and symbicort * Solu-Medrol 60mg IV Q8hr, changed to prednisone 50mg PO daily * CPT or cornette therapy which ever is available * Supplemental oxygen wean to maintain saturation >90% * Home O2 3LNC (3) Asthma exacerbation in COPD: Code(s): J44.1 - Chronic obstructive pulmonary disease with (acute) exacerbation; J45.901 - Unspecified asthma with (acute) exacerbation Status: Acute Assessment and Plan: * See above (4) Suspected COVID-19 virus infection: Code(s): R68.89 - Other general symptoms and signs Status: Acute Assessment and Plan: * Covid swab pending * droplet and contact isolation for now * Solu-Medrol 60mg IV Q8hr, changed to 50mg PO daily * Supplemental oxygen wean to maintain saturation >90% (5) Hypertension: Qualifiers: Hypertension type: essential hypertension Qualified Code(s): I10 - Essential (primary) hypertension Code(s): I10 - Essential (primary) hypertension Status: Acute Assessment and Plan: * Current BP 157/61 * Continue home lisinopril 20mg PO daily, hydrochlorothiazide 12.5 PO Daily, and Lasix 20mg PO daily * Trend BP * Adjust medications as needed (6) Obstructive sleep apnea: Code(s): G47.33 - Obstructive sleep apnea (adult) (pediatric) Status: Acute Assessment and Plan: * Continue with home treatment * Cpap/Bipap ordered per home parameters. (7) Seizure disorder: Code(s): G40.909 - Epilepsy, unspecified, not intractable, without status epilepticus Status: Acute Assessment and Plan: * Continue home phenytoin if patient is still on topiramate * Phenytoin levels low on labs * Might need dosing adjustments if still on it * seizure precautions. (8) Depression with anxiety: Code(s): F41.8 - Other specified anxiety disorders Status: Acute Assessment and Plan: * Continue with Prozac * Monitor mood (9) Diastolic dysfunction: Code(s): I51.89 - Other ill-defined heart diseases Status: Chronic Assessment and Plan: * Echo from
--- NOTE | 2021-06-25 18:41 | PM.IMPN ---
Progress Note: A&P Assessment and Plan (1) Acute on chronic respiratory failure with hypoxia and hypercapnia: Code(s): J96.21 - Acute and chronic respiratory failure with hypoxia; J96.22 - Acute and chronic respiratory failure with hypercapnia Status: Acute Assessment and Plan: Chronic oxygen 3LNC at home ABG shows worsening resp acidosis pH 7.28, pCO2 72, pO2 74., HCO3 33, Sat 92.6 (06/22/21) Chest ray shows possible chronic infection (06/25/21).Widespread reticular nodular opacities with slight worsening in the right upper lung zone which could reflect acute on chronic infection/inflammation. Rales on exam: added lasix 20 mg IV once today. Pulmonary consult supplemental oxygen to maintain saturation >90%, back to baseline oxygen needs Continue IV antibiotics Last visit patient was intubated Continue CPAP at night Trend SPO2 PT/OT (2) COPD exacerbation: Code(s): J44.1 - Chronic obstructive pulmonary disease with (acute) exacerbation Status: Acute Assessment and Plan: COPD exacerbation acute on chronic Chest xray shows Diffuse abnormal reticulonodular airspace disease, not significant change compared to January. Consider chronic infectious process. Continue azithromycin and Rocephin inhaler albuterol and symbicort Solu-Medrol 60mg IV Q8hr, changed to prednisone 50mg PO daily CPT or cornette therapy which ever is available Supplemental oxygen wean to maintain saturation >90% Home O2 3LNC (3) Asthma exacerbation in COPD: Code(s): J44.1 - Chronic obstructive pulmonary disease with (acute) exacerbation; J45.901 - Unspecified asthma with (acute) exacerbation Status: Acute Assessment and Plan: See above (4) Suspected COVID-19 virus infection: Code(s): R68.89 - Other general symptoms and signs Status: Acute Assessment and Plan: Covid swab pending droplet and contact isolation for now Solu-Medrol 60mg IV Q8hr, changed to 50mg PO daily Supplemental oxygen wean to maintain saturation >90% (5) Hypertension: Qualifiers: Hypertension type: essential hypertension Qualified Code(s): I10 - Essential (primary) hypertension Code(s): I10 - Essential (primary) hypertension Status: Acute Assessment and Plan: Current BP 157/61 Continue home lisinopril 20mg PO daily, hydrochlorothiazide 12.5 PO Daily, and Lasix 20mg PO daily Trend BP Adjust medications as needed (6) Obstructive sleep apnea: Code(s): G47.33 - Obstructive sleep apnea (adult) (pediatric) Status: Acute Assessment and Plan: Continue with home treatment Cpap/Bipap ordered per home parameters. (7) Seizure disorder: Code(s): G40.909 - Epilepsy, unspecified, not intractable, without status epilepticus Status: Acute Assessment and Plan: Continue home phenytoin if patient is still on topiramate Phenytoin levels low on labs Might need dosing adjustments if still on it seizure precautions. (8) Depression with anxiety: Code(s): F41.8 - Other specified anxiety disorders Status: Acute Assessment and Plan: Continue with Prozac Monitor mood (9) Diastolic dysfunction: Code(s): I51.89 - Other ill-defined heart diseases Status: Chronic Assessment and Plan: Echo from Oct shows wall thickness Complaints of BLE edema Repeat echo pending Could be contributing to shortness of breath Could possibly be CHF, new onset since no report of history, but lasix 20mg PO daily. Added lasix 20 mg IV once today. BNP 99 venous doppler to BLE Subjective Date/time seen: 06/25/21 18:41 Interval history: Patient is a 70-year-old male who was admitted for worsening shortness of breath and has a history of acute on chronic respiratory failure. Review of Systems Review of Systems: All systems reviewed
[2021-06-25] MEDS: CALCIUM CARBONATE (TUMS) 500 MG (200 MG ELEMENTAL) 400 MG PO (23:36)
[2021-06-26] VITALS (10 sets, daily range): BP systolic 104–148; BP diastolic 46–52; PULSE 64–87; RESP 14–22; TEMP 36.4–36.6; O2SAT 90–96
[2021-06-26] MEDS: ALBUTEROL SULFATE (*SP) INHALER 2 PUFF INHALATION ×3 (02:44→13:49)
--- NOTE | 2021-06-26 06:52 | PM.CNPUL ---
Assessment and Plan Assessment and plan (1) COPD (chronic obstructive pulmonary disease): Qualifiers: COPD type: COPD with acute exacerbation Qualified Code(s): J44.1 - Chronic obstructive pulmonary disease with (acute) exacerbation Code(s): J44.9 - Chronic obstructive pulmonary disease, unspecified Status: Acute Assessment and Plan: 70-year-old male with a history of COPD followed by Dr. 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 of note patient does have eosinophilia this admission with a white blood cell count of 8.8 with 6.7% eosinophils resulting in 590 per micro L and a white blood cell count of 8.2 with 7.3% eosinophils on resulting in 599 eosinophils per micro L on 06/01/2021. He may have a component of asthma. Patient has been treated for COPD exacerbation with steroids, bronchodilators and antibiotics for possible pneumonia. He has improved and currently states he is at his baseline. I did perform a D-dimer and it is positive and will perform perform a CT angiogram which is negative for PE but with emphysema, bronchiectasis and multiple thin and thick walled cysts. Patient does have negative lower extremity Dopplers on 06/23/2021. the CT scan should be forwarded to his pipe installer for further review and to determine if any additional workup needs to be performed. Prednisone 50 mg p.o. Q days last dose 06/28 Levaquin 750 mg PO Q day X 5 days (last dose 07/01) Symbicort 160-4.5 at 2 puffs b.i.d. DuoNebs q.i.d. p.r.n. Oxygen per home O2 assess,emt ( I have ordered) continuation of his home BiPAP settings with 3 L bleed in. Follow up with his pipe installer, Dr Bonilla by phone on 06/27 to determine when they would like to see him in their clinic. (2) Obstructive sleep apnea: Code(s): G47.33 - Obstructive sleep apnea (adult) (pediatric) Status: Acute Assessment and Plan: Patient states that he wears BiPAP at home with 3 L nasal cannula bleed in. Currently he states that the hospital mask is uncomfortable but the current settings of 22/18 feel like they provide him with the same pressures that his home machine does. Would continue these while he is in the hospital. Follow-up as above. History of Present Illness History of Present Illness Consult date: 06/26/21 Reason for consult: COPD Chief complaint: COPD exacerbation, hypoxia Narrative: This is a new pulmonary encounter for COPD exacerbation with hypoxemia 70-year-old male with a history of COPD Followed by Dr. 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 [place] with chronic hypercarbic and hypoxemic respiratory failure on 3 L nasal cannula oxygen 24-7 and BiPAP, bronchiectasis, obstructive sleep apnea with an AHI of 32 on 12/16/2018 and a CPAP titration on 07/22/2019 demonstrated he needed BiPAP with 6 L bleed in resulting in an AHI of 1.2, severe pulmonary hypertension with a estimated pulmonary arterial systolic pressure of 70 and normal right ventricular size and function and normal right atrial size and function on echo 11/06/2019, hypertension, prostate cancer status post radiation, diastolic dysfunction presented to the hospital on 06/22 with worsening shortness of breath. Patient denied any fever, chills, rigors, chest pain, worsening cough, change in phlegm volume or change in phlegm production. At baseline patient states that he can walk 1 and half blocks and then has to stop for shortness of breath. Patient does states he uses a
[2021-06-26 08:33] LABS: D Dimer 2.66 ug/mL (<0.48)
[2021-06-26] MEDS: hydroCHLOROthiazide 12.5 MG CAPSULE PO (09:18)
[2021-06-26] MEDS: CLOPIDOGREL BISULFATE 75 MG TABLET PO (09:18)
[2021-06-26] MEDS: lisinopriL 20 MG TABLET PO (09:18)
[2021-06-26] MEDS: ATORVASTATIN 40 MG TABLET PO (09:18)
[2021-06-26] MEDS: ASPIRIN 81 MG ENTERIC TABLET PO (09:18)
[2021-06-26] MEDS: FLUoxetine HCL 10 MG CAPSULE PO (09:18)
[2021-06-26] MEDS: predniSONE 40 MG, predniSONE 10 MG 50 MG PO (09:18)
[2021-06-26] MEDS: ENOXAPARIN 40 MG/0.4 ML SYRINGE SUB-Q (09:18)
[2021-06-26] MEDS: PHENYTOIN SODIUM 100 MG CAP 200 MG PO ×2 (09:18→12:29)
[2021-06-26] MEDS: FUROSEMIDE 20 MG TABLET PO (09:19)
--- NOTE | 2021-06-26 11:41 | PCRCNOTE ---
HOME OXYGEN EVALUATION DONE. PT DOES NOT REQUIRE ANY CHANGES IN HOME OXYGEN PLAN. PATIENT CURRENTLY WEARS 3L AT HOME.
[2021-06-26] MEDS: CALCIUM CARBONATE (TUMS) 500 MG (200 MG ELEMENTAL) 400 MG PO (12:29)
--- NOTE | 2021-06-26 18:11 | PM.DS ---
DS: Admitting Diagnosis Discharge Date 06/26/21 Admitting Diagnosis Acute COPD exacerbation Acute asthma exacerbation DS: Discharge Diagnosis Discharge Diagnosis (1) Asthma exacerbation in COPD: Code(s): J44.1 - Chronic obstructive pulmonary disease with (acute) exacerbation; J45.901 - Unspecified asthma with (acute) exacerbation Status: Acute (2) COPD exacerbation: Code(s): J44.1 - Chronic obstructive pulmonary disease with (acute) exacerbation Status: Acute (3) Acute on chronic respiratory failure with hypoxia and hypercapnia: Code(s): J96.21 - Acute and chronic respiratory failure with hypoxia; J96.22 - Acute and chronic respiratory failure with hypercapnia Status: Acute (4) COPD (chronic obstructive pulmonary disease): Qualifiers: COPD type: COPD with acute exacerbation Qualified Code(s): J44.1 - Chronic obstructive pulmonary disease with (acute) exacerbation Code(s): J44.9 - Chronic obstructive pulmonary disease, unspecified Status: Acute (5) Bronchiectasis: Code(s): J47.9 - Bronchiectasis, uncomplicated Status: Acute (6) Secondary pulmonary hypertension: Status: Acute DS: Summary Hospital Course Reason for hospitalization: shortness of breath Hospital Course: This is a 70-year-old male patient with a complex medical history including but not limited to COPD, chronbic hypoxic hypercarbic respiratory failure, on home oxygen at at 3 L per nasal cannula. For his COPD, he wears a vibrating vest twice a day. HE also carries a diagnosis of severe pulmonary hypertension and obstructive sleep apnea on home CPAP. The patient was admitted after presenting to the emergency room with complaints of shortness of breath. The patient has been hospitalized multiple times for COPD. Over the last several weeks prior to presentation, the patient has noticed increasing shortness of breath. The patient states he going to see the doctor but whenever he ambulates on the 3 L he gets very short of breath easily. Patient's pulse ox was found to be 80s on 3 L and was increased oxygen at 4 L per nasal cannula on arrival and then his oxygen levels came up to 90%. The patient reports that he has not been vaccinated for COVID-19. He has not had any fever chills but states that he has been having a cough that is productive. Chest x-ray was read as diffuse abnormal reticulonodular airspace disease, not significant change compared January. Consider chronic infectious process. The patient was appropriately started on azithromycin Rocephin, receiving aggressive nebulizer treatments and intravenous Solu-Medrol. The patient also complained of increased edema to lower extremities. H&H 11.8 and 37.5. Arterial blood gases pH 7.353 and CO2 76.2. Patient tested negative for COVID. With aggressive management, the patient improved clinically. due to persistent faint rales he was given a single dose of intravenous 20 mg IV once. Noted he is already on oral lasix at home. At baseline he is a chronic CO2 retainer and after his ABG revealed 7.28/72/74/33/[address] pulmonary was consulted. 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 A home O2 assessment confirmed a baseline O2 requireement of 3 liters per minute which is his baseline. Patient was dischargeed home on a 5-day course of oral levofloxacin. He is scheduled to follow up with his head of loss prevention in [place] Dr Donte Bonilla. Follow-up CT in 3-6 months is recommended. Status at Discharge Functional status at discharge: uses cane/walker Overall status at discharge: patient is back to baseline Time Spent with Patient Time attestation: Total time spent providing and/or coordinating discharge services: Time spent: Greater than 30 minutes Exam Const: General: no acute distress Eyes: General
== END 2021-06-26 14:40 | disposition home or self-care (01) | DRG 190 ==
LOC: ANHED 12:54 → ANH3MEDSUR 18:29
PROVIDERS: Internal Medicine Pulmonary Disease; Nurse Practitioner; Admitting Provider Internal Medicine; Emergency Provider Emergency Medicine; PCP Student in an Organized Health Care Education/Training Program; Visit Provider Internal Medicine
DX: J44.1 Chronic obstructive pulmonary disease with (acute) exacerbation (principal); J96.22 Acute and chronic respiratory failure with hypercapnia; J96.21 Acute and chronic respiratory failure with hypoxia; G47.33 Obstructive sleep apnea (adult) (pediatric); Z20.822 Contact with and (suspected) exposure to COVID-19; E78.5 Hyperlipidemia, unspecified; I10 Essential (primary) hypertension; I51.89 Other ill-defined heart diseases; F41.8 Other specified anxiety disorders; D53.9 Nutritional anemia, unspecified; G40.909 Epilepsy, unspecified, not intractable, without status epilepticus; I27.20 Pulmonary hypertension, unspecified; Z85.46 Personal history of malignant neoplasm of prostate; Z99.81 Dependence on supplemental oxygen; Z87.891 Personal history of nicotine dependence
CPT/HCPCS: 36415; 36600; 71045; 71275; 80048; 80053; 82375; 82805; 83050; 83605; 83615; 83735; 83880; 84443; 84484; 85025; 85380; 85610; 85730; 87040; 93005; 93970; 94002; 94003; 94618; 94640; 94669; 96365; 96367; 96372; 96375; 96376; 97110; 97116; 97161; 97165; 99285; A9270; C8929; C9803; G0378; J0456; J0696; J1120; J1650; J1940; J2930; J7512; Q9957; Q9967; U0003; U0005

== ENCOUNTER 2021-07-18 13:00 | Inpatient (IN) | payer MEDICARE, SELFPAY ==
[2021-07-18] VITALS (14 sets, daily range): BP systolic 101–154; BP diastolic 56–83; PULSE 65–96; RESP 12–32; TEMP 36.6–37.2; O2SAT 96–100; BMI 31.4
--- NOTE | ~2021-07-18 | XR_ITS ---
EXAMINATION: XR chest 2V EXAM DATE: 07/18/2021 13:29 INDICATION: Shortness of breath. TECHNIQUE: Frontal and lateral projections of the chest obtained and reviewed. Comparison is made to prior examination from 06/25/2021. FINDINGS: Diffuse abnormal reticulation, similar appearance on previous examination. This is chronic airspace disease, correlate with recent pulmonary CT report. No evidence of superimposed confluent co nsolidation, superimposed acute airspace disease. No pneumothorax or pleural effusion. Cardiomediasti nal silhouette is normal. There are no osseous abnormalities identified. IMPRESSION: Chronic reticulonodular airspace disease, correlate with recent CT pulmonary report. Reviewed, dictated and finalized at location A.
--- NOTE | 2021-07-18 13:14 | ECG_ITS ---
Measurements Intervals [place] Rate: 83 P: 74 UT: 166 QRS: 66 QRSD: 100 T: 57 QT: 351 QTc: 414 Interpretive Statements SINUS RHYTHM WITH SINUS ARRHYTHMIA BASELINE WANDER- I, II, III, AVR, AVL, AVF, V1, V3 NORMAL ECG Electronically Signed On 07-18-2021 14:45:29 CDT by Julien Ku D.O.
--- NOTE | 2021-07-18 13:37 | ED.GENADULT ---
HPI - General Adult General Chief complaint: Shortness of Breath/Dyspnea Stated complaint: SOB Time Seen by Provider: 07/18/21 13:24 Source: patient and RN notes reviewed History of Present Illness HPI narrative: Patient is a 70 y/o male complaining of mild SOB since this morning. There is no known alleviating or exacerbating factor. He states that he is on 3L O2 at home for COPD. He has no chest pain, cough or fever. Related Data Home Medications Medication Instructions Recorded Confirmed aspirin 81 mg PO DAILY 11/05/19 07/18/21 atorvastatin 40 mg PO DAILY 06/22/21 07/18/21 clopidogrel 75 mg PO DAILY 06/22/21 07/18/21 fluoxetine 10 mg PO BID 06/22/21 07/18/21 hydrochlorothiazide 12.5 mg PO DAILY 06/22/21 07/18/21 ipratropium-albuterol 0.5 ml INHALATION QID PRN 06/22/21 07/18/21 lisinopril 20 mg PO DAILY 06/22/21 07/18/21 phenytoin sodium extended 100 mg PO Q8H 06/22/21 07/18/21 azithromycin [Zithromax] 500 mg PO QMWF 07/18/21 07/18/21 bicalutamide 50 mg PO DAILY 07/18/21 07/18/21 furosemide 20 mg PO DAILY PRN 07/18/21 07/18/21 omeprazole 40 mg PO DAILY 07/18/21 07/18/21 topiramate 25 mg PO DAILY 07/18/21 07/18/21 Allergies Allergy/AdvReac Type Severity Reaction Status Date / Time No Known Allergies Allergy Verified 06/22/21 12:17 Review of Systems Constitutional: Constitutional: Denies chills, Denies fever(s), Denies headache(s) and Denies weakness Eyes: Eyes: Denies blurry vision ENT: Denies headache(s) and Denies neck pain Cardiovascular: Cardiovascular: Denies chest pain and Reports dyspnea Respiratory: Respiratory: Denies cough and Reports dyspnea Gastrointestinal: Gastrointestinal: Denies abdominal pain, Denies diarrhea, Denies nausea and Denies vomiting Genitourinary: Genitourinary: Denies hematuria and Denies dysuria Musculoskeletal: Musculoskeletal: Denies back pain and Denies neck pain Neurologic: Denies headache(s) and Denies weakness [facility] Past Medical History Medical History Bronchiectasis Apparently uses vibratory vest b.i.d. for [address] Wang. Chronic back pain Colon cancer screening COPD (chronic obstructive pulmonary disease) Diastolic dysfunction Echocardiogram in November 06, 2019 showed mild increase in LV wall thickness, grossly normal LV wall motion, ejection fraction estimated > 70%, grade 1 diastolic dysfunction, and mild tricuspid valve regurgitation. Dysphagia Hyperlipidemia Hypertension Macrocytic anemia Obstructive sleep apnea On home O2 PAD (peripheral artery disease) Prostate cancer Status post radiation. On anti androgens. Secondary pulmonary hypertension Noted on echocardiogram 11/06/2019 with an estimated peak RVSP of 70 millimeters of mercury. Seizure disorder Surgical History Surgical History H/O eye surgery Left eye History of AAA (abdominal aortic aneurysm) repair History of vascular surgery Stents to bilateral lower extremities. Family History Family History Sibling Diabetes mellitus Mother Heart disease Social History Social History (Updated 07/18/21 @ 20:31 by Mirian Medina NP) Social History: The patient lives with his in [place]. They have 4 children. He designates his , Jeanette, as his surrogate decision maker. He is currently listed as a full code at the urging of his . He has smoked for 55 years, smoking as much as 2 packs of cigarettes per day for 10 years. It is unclear when he actually has quit smoking. No alcohol or drug use. Code status full code Smoking packs per day: 1 Smoking cigarettes per day: 20.0 Years smoked: 60 Smoking pack-years: 60.00 Smoking status: Former smoker Alcohol intake: never Substance use: never Substance use type: does not use Gender identity (if verbalized by the patient):
[2021-07-18] MEDS: IPRATROPIUM BR 0.02% INH SOLN 0.5 MG/2.5 ML VIAL INHALATION (13:53)
[2021-07-18] MEDS: ALBUTEROL SULFATE NEB 2.5 MG/0.5 ML INH INHALATION (13:53)
[2021-07-18 13:57] LABS: Base Excess ABG 11.3 mEq/l (+/-2.0); Fractional Inspired Oxygen 21 %; HCO3 ABG 42.7 mEq/l (22.0-26.0); Oxygen Content ABG 14.9 %vol (16.0-22.0); Oxyhemoglobin 80.7 % THb (90.0-100.0); PO2 ABG 51.8 mmHg (80.0-100.0); PO2 FiO2 Ratio Arterial Blood 2.47 %; Total Hemoglobin 13.1 g/dL (12.0-18.0)
[2021-07-18 13:58] LABS: pH ABG 7.245 (7.350-7.450)
[2021-07-18 13:59] LABS: Oxygen Saturation ABG 77.9 % (95.0-100.0); PCO2 ABG 100.8 mmHg (35.0-45.0)
[2021-07-18 14:00] LABS: Device ROOM AIR; Modified Allen's Test Unable to perform; Site Drawn RIGHT RADIAL
[2021-07-18] MEDS: methylPREDNISolone SOD SUCC 125 MG VIAL IV PUSH (14:24)
[2021-07-18 14:50] LABS: Basophils Absolute Auto 0.1 K/mm3 (0.0-0.1); Basophils Percent Auto 0.7 % (0.2-1.2); Eosinophils Absolute Auto 0.9 K/mm3 (0-0.3); Eosinophils Percent Auto 9.9 % (0-4.4); Hematocrit 38.6 % (42.0-52.0); Hemoglobin 11.8 g/dL (14.0-18.0); Immature Granulocyte Absolute 0.09 K/mm3 (0.00-0.031); Lymphocytes Absolute Auto 0.65 K/mm3 (0.9-3.2); Lymphocytes Percent Auto 7.5 % (18.3-44.2); Mean Corpuscular HGB Conc 30.6 g/dl (32-36); Mean Corpuscular Hemoglobin 30.4 pg (26-34); Mean Corpuscular Volume 99.5 fl (80-100); Mean Platelet Volume 9.1 fl (7.4-10.4); Monocytes Absolute Auto 0.8 K/mm3 (0.1-0.6); Monocytes Percent Auto 9.4 % (2.6-8.5); Neutrophils Absolute Auto 6.2 K/mm3 (1.3-6.7); Neutrophils Percent Auto 71.5 % (45.5-73.1); Platelet Count Result 183 k/mm3 (150-375); Red Blood Count 3.88 M/mm3 (4.6-6.20); Red Cell Distribution Width 16.2 % (11.5-14.5); White Blood Count 8.6 K/mm3 (4.5-10.0)
[2021-07-18 15:05] LABS: Blood Urea Nitrogen 27 mg/dL (9-20); Calcium 8.3 mg/dL (8.4-10.2); Carbon Dioxide > 40 mmol/L (22-30); Chloride 86 mmol/L (98-107); Estimated CRCL calculation 66 ml/min; Estimated Glomerular Filt Rate > 60; Glucose 126 mg/dL (65-110); Potassium 4.8 mmol/L (3.4-5.0); Sodium 132 mmol/L (137-145)
[2021-07-18 15:15] LABS: Alveolar/Arterial O2 Gradient 40.6 mmHg; Base Excess ABG 9.9 mEq/l (+/-2.0); Fractional Inspired Oxygen 30 %; HCO3 ABG 40.4 mEq/l (22.0-26.0); Oxygen Content ABG 16.3 %vol (16.0-22.0); Oxygen Saturation ABG 88.8 % (95.0-100.0)
[2021-07-18 15:16] LABS: Device NON-INVASIVE VENT; Modified Allen's Test Unable to perform; PCO2 ABG 91.3 mmHg (35.0-45.0); Site Drawn LEFT RADIAL; pH ABG 7.264 (7.350-7.450)
[2021-07-18 15:17] LABS: Non-Invasive Expiratory Pressure 16 CMH2O; Non-Invasive Inspiratory Pressure 22 CMH2O; Non-Invasive Vent Rate 12 /MIN
[2021-07-18 15:47] LABS: Troponin I < 0.012 ng/mL (0.000-0.034)
--- NOTE | 2021-07-18 17:46 | ADMGEN ---
This patient, Quentin Zavaleta, was admitted to IMU Room 204-01 at 1744. Patient/family oriented to hospital policies and general routines including ID bracelet, bed and alarms, visiting hours, pain management, procedures, bathroom and other care routines, personal items, smoking policy, room service/diet, and visiting hours. Information on how to activate the Rapid Response Team has been discussed. Patient/Family are encouraged to report perceived risks to care and to ask questions if they do not understand what they are told or what they should do.
[2021-07-18 18:40] LABS: Troponin I < 0.012 ng/mL (0.000-0.034)
[2021-07-18 19:09] LABS: Phenytoin Dilantin 6 ug/mL (10-20)
--- NOTE | 2021-07-18 20:12 | PM.IMHP ---
H&P: HPI History of Present Illness Date/Time: 07/18/21 20:12 this is a 70 year old male patient has a history of COPD and is chronically on oxygen at 3 L per nasal. Chest x-ray was read as chronic reticular nodular airspace disease, correlate with recent CT pulmonary report. His CTA from 06/26/2021 was read as the following 1. No pulmonary embolus identified. 2. 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 Follow-up CT in 3-6 months is recommended. 3. Moderate emphysema. H&H 11.8 and 38.6. Arterial blood gases were read as pH 7.264, CO2 91.3, PO2 66.0, and O2 saturation 88.8. Sodium 132. Phenytoin level was low at 6. The patient was placed on a BiPAP machine. Patient was given nebulizer treatments and Solu-Medrol in the emergency room. The patient was given nebulizer treatments and Solu-Medrol in the emergency The patient was admitted to inpatient services on the date of service of 07/18/2021. Chief Complaint: Shortness of breath Review of Systems Review of Systems: All systems reviewed & are unremarkable except as noted in HPI and below Constitutional: Constitutional: Reports as per HPI and Reports no additional constitutional complaints Eyes: Eyes: Reports as per HPI and Reports no additional eye complaints ENT: Reports system reviewed and no additional complaints, except as documented and Reports Normal hearing present Cardiovascular: Cardiovascular: Reports no additional cardiovascular complaints Respiratory: Respiratory: Reports no additional respiratory complaints and Reports no additional respiratory complaints Gastrointestinal: Gastrointestinal: Reports as per HPI and Reports no additional gastrointestinal complaints Musculoskeletal: Musculoskeletal: Reports no additional musculoskeletal complaints Integumentary/Breasts: Skin/Breast: Reports system reviewed and no additional complaints, except as docu and Reports as per HPI Neurologic: Reports system reviewed and no additional complaints, except as documented, Reports as per HPI and Reports Normal hearing present Psychiatric: Psychiatric: Reports no additional psychiatric complaints and Reports as per HPI Endocrine: Endocrine: Reports no additional endocrine complaints Hematologic/Lymphatic: Hematologic/Lymphatic: Reports no additional hematologic/lymphatic complaints Allergic/Immunologic: Allergic/Immunologic: Reports no additional allergic/immunologic complaints PMFSH Past Medical History Medical History Bronchiectasis Apparently uses vibratory vest b.i.d. for [address] Wang. Chronic back pain Colon cancer screening COPD (chronic obstructive pulmonary disease) Diastolic dysfunction Echocardiogram in November 06, 2019 showed mild increase in LV wall thickness, grossly normal LV wall motion, ejection fraction estimated > 70%, grade 1 diastolic dysfunction, and mild tricuspid valve regurgitation. Dysphagia Hyperlipidemia Hypertension Macrocytic anemia Obstructive sleep apnea On home O2 PAD (peripheral artery disease) Prostate cancer Status post radiation. On anti androgens. Secondary pulmonary hypertension Noted on echocardiogram 11/06/2019 with an estimated peak RVSP of 70 millimeters of mercury. Seizure disorder Surgical History Surgical History H/O eye surgery Left eye History of AAA (abdominal aortic aneurysm) repair History of vascular surgery Stents to bilateral lower extremities. Family History Family History Sibling Diabetes mellitus Mother Heart disease Social History Social History (Updated 07/18/21 @ 20:31 by Mirian Medina NP) Social History: The patient lives with his in [place]. They have 4 children. He designates his , Jeanette, as his surrogate decision maker. H
[2021-07-18 21:23] LABS: Alveolar/Arterial O2 Gradient 107.2 mmHg; Base Excess ABG 8.3 mEq/l (+/-2.0); Fractional Inspired Oxygen 45 %; HCO3 ABG 39.1 mEq/l (22.0-26.0); Oxygen Content ABG 18.1 %vol (16.0-22.0); Oxygen Saturation ABG 96.9 % (95.0-100.0); Oxyhemoglobin 95.8 % THb (90.0-100.0); PO2 FiO2 Ratio Arterial Blood 2.42 %; Total Hemoglobin 13.3 g/dL (12.0-18.0)
[2021-07-18 21:25] LABS: Device NON-INVASIVE VENT; Modified Allen's Test Pass; Site Drawn RIGHT RADIAL; pH ABG 7.246 (7.350-7.450)
[2021-07-18 21:26] LABS: Non-Invasive Expiratory Pressure 16 CMH2O; Non-Invasive Inspiratory Pressure 22 CMH2O; Non-Invasive Vent Rate 20 /MIN
[2021-07-18 21:30] LABS: Troponin I < 0.012 ng/mL (0.000-0.034)
[2021-07-18] MEDS: PANTOPRAZOLE 40 MG TABLET PO (22:05)
[2021-07-18] MEDS: FLUoxetine HCL 10 MG CAPSULE PO (22:05)
[2021-07-18] MEDS: PHENYTOIN SODIUM 100 MG CAP PO (22:05)
[2021-07-18] MEDS: methylPREDNISolone SOD SUCC 125 MG VIAL 80 MG IV PUSH (23:20)
[2021-07-19] VITALS (26 sets, daily range): BP systolic 138–153; BP diastolic 41–65; PULSE 64–88; RESP 18–25; TEMP 36.1–36.9; O2SAT 90–100
[2021-07-19] MEDS: IPRATROPIUM BR 0.02% INH SOLN 0.5 MG/2.5 ML VIAL INHALATION ×4 (02:02→20:21)
[2021-07-19] MEDS: ALBUTEROL SULFATE NEB 2.5 MG/0.5 ML INH 5 MG INHALATION ×2 (02:02→07:47)
[2021-07-19] MEDS: methylPREDNISolone SOD SUCC 125 MG VIAL 80 MG IV PUSH (04:57)
[2021-07-19] MEDS: PHENYTOIN SODIUM 100 MG CAP PO ×3 (04:57→20:40)
[2021-07-19 05:21] LABS: Basophils Percent Auto 0.3 % (0.2-1.2); Hematocrit 37.7 % (42.0-52.0); Hemoglobin 11.4 g/dL (14.0-18.0); Immature Granulocyte Absolute 0.09 K/mm3 (0.00-0.031); Immature Granulocyte Percent A 1.5 % (0-0.5); Lymphocytes Absolute Auto 0.26 K/mm3 (0.9-3.2); Lymphocytes Percent Auto 4.4 % (18.3-44.2); Mean Corpuscular HGB Conc 30.2 g/dl (32-36); Mean Corpuscular Hemoglobin 30.6 pg (26-34); Mean Corpuscular Volume 101.1 fl (80-100); Mean Platelet Volume 9.5 fl (7.4-10.4); Monocytes Absolute Auto 0.1 K/mm3 (0.1-0.6); Monocytes Percent Auto 2.2 % (2.6-8.5); Neutrophils Absolute Auto 5.5 K/mm3 (1.3-6.7); Neutrophils Percent Auto 91.6 % (45.5-73.1); Platelet Count Result 181 k/mm3 (150-375); Red Blood Count 3.73 M/mm3 (4.6-6.20)
[2021-07-19 05:42] LABS: Lactic Acid Reflex 0.8 mmol/L (0.7-2.1)
[2021-07-19 05:48] LABS: Alanine Aminotransferase 15 U/L (4-50); Albumin Level 3.7 g/dL (3.5-5.1); Alkaline Phosphatase 139 U/L (38-126); Aspartate Amino Transferase 23 U/L (17-59); Bilirubin,Total 0.4 mg/dL (0.2-1.3); Blood Urea Nitrogen 26 mg/dL (9-20); CRP 2.7 mg/dL (<1.0); Calcium 8.1 mg/dL (8.4-10.2); Carbon Dioxide > 40 mmol/L (22-30); Chloride 86 mmol/L (98-107); Estimated CRCL calculation 68 ml/min; Estimated Glomerular Filt Rate > 60; Glucose 146 mg/dL (65-110); Lactate Dehydrogenase 296 U/L (313-618); Magnesium 2.1 mg/dL (1.6-2.3); Sodium 131 mmol/L (137-145)
[2021-07-19 08:17] LABS: Alveolar/Arterial O2 Gradient 111.1 mmHg; Base Excess ABG 10.2 mEq/l (+/-2.0); Fractional Inspired Oxygen 36 %; HCO3 ABG 39.2 mEq/l (22.0-26.0); Oxygen Content ABG 15.7 %vol (16.0-22.0); Oxyhemoglobin 86.6 % THb (90.0-100.0); PO2 ABG 56.3 mmHg (80.0-100.0); PO2 FiO2 Ratio Arterial Blood 1.56 %; Total Hemoglobin 12.9 g/dL (12.0-18.0); pH ABG 7.325 (7.350-7.450)
[2021-07-19 08:19] LABS: Device NASAL CANNULA; Modified Allen's Test Pass; Oxygen Saturation ABG 85.6 % (95.0-100.0); Site Drawn RIGHT RADIAL
--- NOTE | 2021-07-19 09:03 | PM.IMPN ---
Progress Note: A&P Assessment and Plan (1) Acute and chronic respiratory failure: Qualifiers: Respiratory failure complication: hypoxia and hypercapnia Qualified Code(s): J96.21 - Acute and chronic respiratory failure with hypoxia; J96.22 - Acute and chronic respiratory failure with hypercapnia Code(s): J96.20 - Acute and chronic respiratory failure, unspecified whether with hypoxia or hypercapnia Status: Acute Assessment and Plan: The patient is chronically on 3 L per nasal cannula. Most likely has chronic hypercapnia. Chronic hypoxia. The patient is currently on 4L, took bipap off around 0400 as he was unable to tolerate it. ABG this morning with improved pH of 7.325 and Co2 of 77. Po2 decreased to 56. Increased to 5L nasal cannula. Will consider putting him back on bipap pending pulm consult. Pulm Dr. Gonzalez states to leave patient on 4L NC with Bipap overnight and as needed throughout the day. Will recheck ABG tomorrow morning. (2) COPD exacerbation: Code(s): J44.1 - Chronic obstructive pulmonary disease with (acute) exacerbation Status: Acute Assessment and Plan: Continue Solu-Medrol and nebulizer treatments. Continue Azithromycin 3x weekly. (3) Diastolic dysfunction: Code(s): I51.89 - Other ill-defined heart diseases Status: Chronic Assessment and Plan: Continue with Lasix. Continue hydrochlorothiazide. (4) Depression with anxiety: Code(s): F41.8 - Other specified anxiety disorders Status: Acute Assessment and Plan: Continue with Prozac (5) Hypertension: Qualifiers: Hypertension type: essential hypertension Qualified Code(s): I10 - Essential (primary) hypertension Code(s): I10 - Essential (primary) hypertension Status: Acute Assessment and Plan: Continue with lisinopril and hydrochlorothiazide (6) Obstructive sleep apnea: Code(s): G47.33 - Obstructive sleep apnea (adult) (pediatric) Status: Acute Assessment and Plan: The patient is currently on a BiPAP machine overnight, will continue with CPAP after he is off of the BiPAP (7) Seizure disorder: Code(s): G40.909 - Epilepsy, unspecified, not intractable, without status epilepticus Status: Acute Assessment and Plan: Patient seizure medicine level is on the low side. Continue with phenytoin and topiramate. (8) Anemia: Code(s): D64.9 - Anemia, unspecified Status: Acute Assessment and Plan: Press to be stable continue to monitor. Subjective Date/time seen: Date/Time: 07/18/21 20:12 this is a 70 year old male patient has a history of COPD and is chronically on oxygen at 3 L per nasal. Chest x-ray was read as chronic reticular nodular airspace disease, correlate with recent CT pulmonary report. His CTA from 06/26/2021 was read as the following 1. No pulmonary embolus identified. 2. 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 Follow-up CT in 3-6 months is recommended. 3. Moderate emphysema. H&H 11.8 and 38.6. Arterial blood gases were read as pH 7.264, CO2 91.3, PO2 66.0, and O2 saturation 88.8. Sodium 132. Phenytoin level was low at 6. The patient was placed on a BiPAP machine. Patient was given nebulizer treatments and Solu-Medrol in the emergency room. The patient was given nebulizer treatments and Solu-Medrol in the emergency The patient was admitted to inpatient services on the date of service of 07/18/2021. Interval change: 07/19/21 09:03 Pt states he is feeling better this morning, however remains mildly short of breath. Also notes slight dizziness when standing up. Pt was placed on Bipap yesterday at 22/16 but was unable to tolerate it throughout the night. He was taken down to 4L nasal cannula around 0400 today. Review of Systems Constitutional:
[2021-07-19] MEDS: FUROSEMIDE 20 MG TABLET PO (10:09)
[2021-07-19] MEDS: CLOPIDOGREL BISULFATE 75 MG TABLET PO (10:09)
[2021-07-19] MEDS: lisinopriL 20 MG TABLET PO (10:09)
[2021-07-19] MEDS: ATORVASTATIN 40 MG TABLET PO (10:09)
[2021-07-19] MEDS: ASPIRIN 81 MG ENTERIC TABLET PO (10:09)
[2021-07-19] MEDS: BICALUTAMIDE (*CHEMO) 50 MG TABLET PO (10:09)
[2021-07-19] MEDS: PANTOPRAZOLE 40 MG TABLET PO ×2 (10:09→16:40)
[2021-07-19] MEDS: TOPIRAMATE 25 MG TABLET PO (10:09)
[2021-07-19] MEDS: hydroCHLOROthiazide 12.5 MG CAPSULE PO (10:09)
[2021-07-19] MEDS: FLUoxetine HCL 10 MG CAPSULE PO ×2 (10:10→16:40)
--- NOTE | 2021-07-19 11:22 | PM.CNPUL ---
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 of note patient does have eosinophilia this admission with a white blood cell count of 8.8 with 6.7% eosinophils resulting in 590 per micro L and a white blood cell count of 8.2 with 7.3% eosinophils on resulting in 599 eosinophils per micro L on 06/01/2021. He may have a component of asthma. CT angiogram which is negative for PE but with emphysema, bronchiectasis and multiple thin and thick walled cysts. Patient does have negative lower extremity Dopplers on 06/23/2021. the CT scan should be forwarded to his forest fire warden for further review and to determine if any additional workup needs to be performed. 07/19/21 Patient has worsening shortness of breath, worsening dry cough with no fever, no leukocytosis, no purulence sputum and has been treated for possible COPD exacerbation with systemic steroids Solu-Medrol 80 mg IV q.6, albuterol 5 mg nebulized q.6 hours and ipratropium 0.5 mg nebs q.6 hours. His azithromycin at 500 3 times a week on Sunday has been continued. Patient currently states he is 60% better overnight with this treatment along with BiPAP which he is now off. I will change his Solu-Medrol to prednisone 40 mg p.o. q.day, I will continue his albuterol at 2.5 mg nebs q.6 hours standing and ipratropium 0.5 mg nebs q.6 hours standing. He has no change in his phlegm and no purulence phlegm and at this time I will not treat with antibiotics other than to continue his azithromycin 500 on Sunday. Patient is not COVID vaccinated and refuses to get is COVID vaccine at this time. He has no evidenceof COVID symptoms or infection at this time. will follow. (2) Obstructive sleep apnea: Code(s): G47.33 - Obstructive sleep apnea (adult) (pediatric) Status: Acute Assessment and Plan: Patient states that he wears BiPAP at home with 4 L nasal cannula bleed in And this was set up by his outpatient forest fire warden. I have told him to bring in his home machine including the electrical cord, machine, tubing and fullface nasal mask as his mask and machine or more comfortable than the hospital settings. If he cannot bring in his home machine I will continue his BiPAP with a rate of 20, pressure is 22/16 (states 18 is too much pressure on our machine) and 4 L bleed in. patient should use his home machine tonight if it is available. Will follow with you History of Present Illness History of Present Illness Consult date: 07/19/21 Chief complaint: Acute respiratory failure Narrative: 07/19/21 This is a new Pulmonary consult for acute on chronic hypoxemic and hypercarbic respiratory failure. 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
[2021-07-19] MEDS: predniSONE 20 MG TABLET 40 MG PO (12:43)
[2021-07-19] MEDS: ALBUTEROL SULFATE NEB 2.5 MG/0.5 ML INH INHALATION ×2 (14:04→20:21)
[2021-07-19] MEDS: WATER FOR IRRIGATION, STERILE 1,000 ML BOTTLE 1000 ML (20:40)
[2021-07-20] VITALS (22 sets, daily range): BP systolic 135–158; BP diastolic 55–65; PULSE 58–85; RESP 16–26; TEMP 36.6–36.9; O2SAT 90–100
[2021-07-20] MEDS: IPRATROPIUM BR 0.02% INH SOLN 0.5 MG/2.5 ML VIAL INHALATION ×4 (02:34→21:45)
[2021-07-20] MEDS: ALBUTEROL SULFATE NEB 2.5 MG/0.5 ML INH INHALATION ×4 (02:34→21:45)
[2021-07-20 05:00] LABS: Hematocrit 34.5 % (42.0-52.0); Hemoglobin 10.8 g/dL (14.0-18.0); Mean Corpuscular HGB Conc 31.3 g/dl (32-36); Mean Corpuscular Hemoglobin 30.4 pg (26-34); Mean Corpuscular Volume 97.2 fl (80-100); Mean Platelet Volume 8.8 fl (7.4-10.4); Platelet Count Result 201 k/mm3 (150-375); Red Blood Count 3.55 M/mm3 (4.6-6.20); Red Cell Distribution Width 15.9 % (11.5-14.5); White Blood Count 7.5 K/mm3 (4.5-10.0)
[2021-07-20 05:30] LABS: Blood Urea Nitrogen 29 mg/dL (9-20); Calcium 8.3 mg/dL (8.4-10.2); Carbon Dioxide > 40 mmol/L (22-30); Chloride 85 mmol/L (98-107); Estimated CRCL calculation 68 ml/min; Estimated Glomerular Filt Rate > 60; Glucose 96 mg/dL (65-110); Potassium 4.6 mmol/L (3.4-5.0); Sodium 130 mmol/L (137-145)
[2021-07-20] MEDS: PHENYTOIN SODIUM 100 MG CAP PO ×3 (05:32→21:13)
[2021-07-20 05:46] LABS: Alveolar/Arterial O2 Gradient 120.4 mmHg; Base Excess ABG 15.4 mEq/l (+/-2.0); Fractional Inspired Oxygen 40 %; HCO3 ABG 44.5 mEq/l (22.0-26.0); Oxygen Content ABG 15.9 %vol (16.0-22.0); Oxygen Saturation ABG 92.5 % (95.0-100.0); Oxyhemoglobin 92.4 % THb (90.0-100.0); PO2 ABG 70.6 mmHg (80.0-100.0); PO2 FiO2 Ratio Arterial Blood 1.76 %; Total Hemoglobin 12.2 g/dL (12.0-18.0); pH ABG 7.353 (7.350-7.450)
[2021-07-20 05:48] LABS: Device NASAL CANNULA; Modified Allen's Test Pass; PCO2 ABG 81.9 mmHg (35.0-45.0); Site Drawn RIGHT RADIAL
--- NOTE | 2021-07-20 08:11 | PM.PNPUL ---
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 of note patient does have eosinophilia this admission with a white blood cell count of 8.8 with 6.7% eosinophils resulting in 590 per micro L and a white blood cell count of 8.2 with 7.3% eosinophils on resulting in 599 eosinophils per micro L on 06/01/2021. He may have a component of asthma. CT angiogram which is negative for PE but with emphysema, bronchiectasis and multiple thin and thick walled cysts. Patient does have negative lower extremity Dopplers on 06/23/2021. the CT scan should be forwarded to his motor bike mechanic for further review and to determine if any additional workup needs to be performed. 07/19/21 Patient has worsening shortness of breath, worsening dry cough with no fever, no leukocytosis, no purulence sputum and has been treated for possible COPD exacerbation with systemic steroids Solu-Medrol 80 mg IV q.6, albuterol 5 mg nebulized q.6 hours and ipratropium 0.5 mg nebs q.6 hours. His azithromycin at 500 3 times a week on Sunday has been continued. Patient currently states he is 60% better overnight with this treatment along with BiPAP which he is now off. I will change his Solu-Medrol to prednisone 40 mg p.o. q.day, I will continue his albuterol at 2.5 mg nebs q.6 hours standing and ipratropium 0.5 mg nebs q.6 hours standing. He has no change in his phlegm and no purulence phlegm and at this time I will not treat with antibiotics other than to continue his azithromycin 500 on Sunday. Patient is not COVID vaccinated and refuses to get is COVID vaccine at this time. He has no evidenceof COVID symptoms or infection at this time. will follow. 07/20 Patient states that he is 90% back to normal with only an increased dry cough at this time while on prednisone 40 (day 3 steroids), albuterol 2.5 nebs q.6 hours and ipratropium 0.5 mg nebs q.6 hours. Will continue this regimen. (2) Obstructive sleep apnea: Code(s): G47.33 - Obstructive sleep apnea (adult) (pediatric) Status: Acute Assessment and Plan: 07/19 Patient states that he wears BiPAP at home with 4 L nasal cannula bleed in And this was set up by his outpatient motor bike mechanic. I have told him to bring in his home machine including the electrical cord, machine, tubing and fullface nasal mask as his mask and machine or more comfortable than the hospital settings. If he cannot bring in his home machine I will continue his BiPAP with a rate of 20, pressure is 22/16 (states 18 is too much pressure on our machine) and 4 L bleed in. patient should use his home machine tonight if it is available. 07/20 Speaking with patient and his nurse he was able to bring in his home BiPAP machine which was placed on him at 10:15 p.m. with 5 L bleed in. patient tells me he wore the machine for about an hour and then they switched him to the hospital machine because the patient had low saturations in the 60s per the respiratory therapy note and he was switched to the hospital BiPAP machine with a rate of
[2021-07-20] MEDS: ATORVASTATIN 40 MG TABLET PO (09:22)
[2021-07-20] MEDS: BICALUTAMIDE (*CHEMO) 50 MG TABLET PO (09:22)
[2021-07-20] MEDS: AZITHROMYCIN 250 MG TABLET 500 MG PO (09:22)
[2021-07-20] MEDS: hydroCHLOROthiazide 12.5 MG CAPSULE PO (09:22)
[2021-07-20] MEDS: PANTOPRAZOLE 40 MG TABLET PO ×2 (09:22→17:21)
[2021-07-20] MEDS: lisinopriL 20 MG TABLET PO (09:22)
[2021-07-20] MEDS: CLOPIDOGREL BISULFATE 75 MG TABLET PO (09:22)
[2021-07-20] MEDS: ASPIRIN 81 MG ENTERIC TABLET PO (09:22)
[2021-07-20] MEDS: TOPIRAMATE 25 MG TABLET PO (09:22)
[2021-07-20] MEDS: FUROSEMIDE 20 MG TABLET PO (09:24)
[2021-07-20] MEDS: FLUoxetine HCL 10 MG CAPSULE PO ×2 (09:26→17:21)
[2021-07-20] MEDS: predniSONE 20 MG TABLET 40 MG PO (09:26)
--- NOTE | 2021-07-20 11:08 | PM.IMPN ---
Progress Note: A&P Assessment and Plan (1) Acute and chronic respiratory failure: Qualifiers: Respiratory failure complication: hypoxia and hypercapnia Qualified Code(s): J96.21 - Acute and chronic respiratory failure with hypoxia; J96.22 - Acute and chronic respiratory failure with hypercapnia Code(s): J96.20 - Acute and chronic respiratory failure, unspecified whether with hypoxia or hypercapnia Status: Acute Assessment and Plan: The patient is chronically on 3 L per nasal cannula. Most likely has chronic hypercapnia. Chronic hypoxia. The patient is currently on 4L, took bipap off around 0400 as he was unable to tolerate it. ABG this morning with improved pH of 7.325 and Co2 of 77. Po2 decreased to 56. Increased to 5L nasal cannula. Will consider putting him back on bipap pending pulm consult. Pulm Dr. Gonzalez states to leave patient on 4L NC with Bipap overnight and as needed throughout the day. Will recheck ABG tomorrow morning. 07/20/21 Pt was on his home bipap last night for 1 hour but oxygen sats were reportedly in the 60s. He was switched to hospital Bipap after that with settings of 22/16 which patient has a very difficult time tolerating. He was on 5L NC when I evaluated him this morning. Pt evaluated this morning by Dr. Gonzalez. Plan is to continue prednisone, neb treatments, azithromycin 3x/week. He is also going to obtain a download from [facility] medical supplies to determine his settings and assess his compliance. Dr. Gonzalez is also going to put pt on his home machine and titer his oxygen up while on overnight oximetry so as to maintain adequate oxygenation. Appreciate Dr. Gonzalez's input. Will check another ABG tomorrow morning. (2) COPD exacerbation: Code(s): J44.1 - Chronic obstructive pulmonary disease with (acute) exacerbation Status: Acute Assessment and Plan: Continue Solu-Medrol and nebulizer treatments. Continue Azithromycin 3x weekly. (3) Diastolic dysfunction: Code(s): I51.89 - Other ill-defined heart diseases Status: Chronic Assessment and Plan: Continue with Lasix. Continue hydrochlorothiazide. (4) Depression with anxiety: Code(s): F41.8 - Other specified anxiety disorders Status: Acute Assessment and Plan: Continue with Prozac (5) Hypertension: Qualifiers: Hypertension type: essential hypertension Qualified Code(s): I10 - Essential (primary) hypertension Code(s): I10 - Essential (primary) hypertension Status: Acute Assessment and Plan: Continue with lisinopril and hydrochlorothiazide (6) Obstructive sleep apnea: Code(s): G47.33 - Obstructive sleep apnea (adult) (pediatric) Status: Acute Assessment and Plan: The patient is currently on a BiPAP machine overnight, will continue with CPAP after he is off of the BiPAP (7) Seizure disorder: Code(s): G40.909 - Epilepsy, unspecified, not intractable, without status epilepticus Status: Acute Assessment and Plan: Patient seizure medicine level is on the low side. Continue with phenytoin and topiramate. (8) Anemia: Code(s): D64.9 - Anemia, unspecified Status: Acute Assessment and Plan: Press to be stable continue to monitor. Subjective Date/time seen: 07/18/21 20:12 this is a 70 year old male patient has a history of COPD and is chronically on oxygen at 3 L per nasal. Chest x-ray was read as chronic reticular nodular airspace disease, correlate with recent CT pulmonary report. His CTA from 06/26/2021 was read as the following 1. No pulmonary embolus identified. 2. 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 Follow-up CT in 3-6 months is recommended. 3. Moderate emphysema. H&H 11.8 and 38.6. Arterial blood gases were read as pH 7.264, CO2 91.3, PO2 66.0, an
--- NOTE | 2021-07-20 12:00 | PC.NURSE ---
This patient, Quentin Zavaleta, was transferred to [facility] on 07/20/21 at 1120. Personal belongings sent with patient. Report given to ZEESHAN Rothman. Appropriate documentation sent with patient.
--- NOTE | 2021-07-20 12:18 | PC.NURSE ---
This patient, Quentin Zavaleta, was received from [facility] on 07/20/21 at 1120. Patient/family oriented to unit policies and routines
[2021-07-21] VITALS (20 sets, daily range): BP systolic 142–157; BP diastolic 58–68; PULSE 56–80; RESP 18–25; TEMP 36.6–36.8; O2SAT 85–97
[2021-07-21 03:18] LABS: Alveolar/Arterial O2 Gradient 89.8 mmHg; Base Excess ABG 14.6 mEq/l (+/-2.0); Fractional Inspired Oxygen 40 %; HCO3 ABG 44.7 mEq/l (22.0-26.0); Oxygen Content ABG 16.4 %vol (16.0-22.0); Oxygen Saturation ABG 95.5 % (95.0-100.0); PO2 ABG 89.9 mmHg (80.0-100.0); PO2 FiO2 Ratio Arterial Blood 2.25 %; Total Hemoglobin 12.2 g/dL (12.0-18.0); pH ABG 7.306 (7.350-7.450)
[2021-07-21 03:27] LABS: PCO2 ABG 91.7 mmHg (35.0-45.0)
[2021-07-21 03:28] LABS: Device NON-INVASIVE VENT; Modified Allen's Test Pass; Non-Invasive Vent Rate 20 /MIN; Site Drawn RIGHT RADIAL
[2021-07-21 03:29] LABS: Non-Invasive Expiratory Pressure 12 CMH2O
--- NOTE | 2021-07-21 03:42 | PCRCNOTE ---
ApneaLink used to obtain oximetry data. Pt on AVAPs for duration of study with the following settings per doctor order: target Vt 500, rate 20, EPAP 12, min I 13, max I 30, 40%. Pt woke up frequently during study and pulled off his mask several times, resulting in desaturation events. It was always put back on immediately and pt O2 saturation recovered. Pt remained intolerant to AVAPs and, after approximately 4 hours, pt demanded to come off AVAPs and be put back on nasal cannula. As ordered, ABG was obtained prior to taking off AVAPs. ABG results as reported to nurse were pH 7.306, pCO2 91.7, pO2 89.9, and HCO3 44.7.
[2021-07-21] MEDS: PHENYTOIN SODIUM 100 MG CAP PO ×2 (05:41→14:55)
[2021-07-21] MEDS: ALBUTEROL SULFATE NEB 2.5 MG/0.5 ML INH INHALATION ×2 (08:02→14:32)
[2021-07-21] MEDS: IPRATROPIUM BR 0.02% INH SOLN 0.5 MG/2.5 ML VIAL INHALATION ×2 (08:02→14:32)
[2021-07-21] MEDS: TOPIRAMATE 25 MG TABLET PO (08:48)
[2021-07-21] MEDS: CLOPIDOGREL BISULFATE 75 MG TABLET PO (08:48)
[2021-07-21] MEDS: BICALUTAMIDE (*CHEMO) 50 MG TABLET PO (08:48)
[2021-07-21] MEDS: lisinopriL 20 MG TABLET PO (08:49)
[2021-07-21] MEDS: FLUoxetine HCL 10 MG CAPSULE PO (08:49)
[2021-07-21] MEDS: ASPIRIN 81 MG ENTERIC TABLET PO (08:49)
[2021-07-21] MEDS: PANTOPRAZOLE 40 MG TABLET PO (08:49)
[2021-07-21] MEDS: ATORVASTATIN 40 MG TABLET PO (08:49)
[2021-07-21] MEDS: predniSONE 20 MG TABLET 40 MG PO (08:49)
[2021-07-21] MEDS: hydroCHLOROthiazide 12.5 MG CAPSULE PO (08:49)
[2021-07-21] MEDS: FUROSEMIDE 20 MG TABLET PO (08:50)
--- NOTE | 2021-07-21 09:54 | PM.PNPUL ---
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 of note patient does have eosinophilia this admission with a white blood cell count of 8.8 with 6.7% eosinophils resulting in 590 per micro L and a white blood cell count of 8.2 with 7.3% eosinophils on resulting in 599 eosinophils per micro L on 06/01/2021. He may have a component of asthma. CT angiogram which is negative for PE but with emphysema, bronchiectasis and multiple thin and thick walled cysts. Patient does have negative lower extremity Dopplers on 06/23/2021. the CT scan should be forwarded to his leasing agent for further review and to determine if any additional workup needs to be performed. 07/19/21 Patient has worsening shortness of breath, worsening dry cough with no fever, no leukocytosis, no purulence sputum and has been treated for possible COPD exacerbation with systemic steroids Solu-Medrol 80 mg IV q.6, albuterol 5 mg nebulized q.6 hours and ipratropium 0.5 mg nebs q.6 hours. His azithromycin at 500 3 times a week on Sunday has been continued. Patient currently states he is 60% better overnight with this treatment along with BiPAP which he is now off. I will change his Solu-Medrol to prednisone 40 mg p.o. q.day, I will continue his albuterol at 2.5 mg nebs q.6 hours standing and ipratropium 0.5 mg nebs q.6 hours standing. He has no change in his phlegm and no purulence phlegm and at this time I will not treat with antibiotics other than to continue his azithromycin 500 on Sunday. Patient is not COVID vaccinated and refuses to get is COVID vaccine at this time. He has no evidenceof COVID symptoms or infection at this time. will follow. 07/20 Patient states that he is 90% back to normal with only an increased dry cough at this time while on prednisone 40 (day 3 steroids), albuterol 2.5 nebs q.6 hours and ipratropium 0.5 mg nebs q.6 hours. Will continue this regimen. 07/21 Patient states that he is back to normal other than mildly increased cough. Patient is suitable for discharge from pulmonary perspective on these pulmonary medicines: Prednisone 40 mg PO X 1 day Symbicort 160-4.5 at 2 puffs b.i.d. DuoNeb q.i.d. rescue albuterol 2 puffs q.4 hours p.r.n. shortness of breath or wheezing oxygen per formal home O2 assessment prior to discharge, I have ordered this test we will coordinate discharge with noninvasive ventilation using AVAPS-AE mode: rate of 24, tidal volume 550, EPAP min 5, EPAP max 16, IPAP min 10, IPAP max 25, 5 L bleed in I spoke to the and he will follow up with us in the Pulmonary Clinic in 3-4 weeks. I have notified our sales expert. (2) Obstructive sleep apnea: Code(s): G47.33 - Obstructive sleep apnea (adult) (pediatric) Status: Acute Assessment and Plan: 07/19 Patient states that he wears BiPAP at home with 4 L nasal cannula bleed in And this was set up by his outpatient leasing agent. I have told him to bring in his home machine including the electrical cord, machine, tubing and fullface nasal
--- NOTE | 2021-07-21 10:16 | PCRCNOTE ---
Making arrangements for home Trilogy and overnight oximetry study with patient's DME company, [facility] ([phone])
--- NOTE | 2021-07-21 11:17 | PM.DS ---
DS: Admitting Diagnosis Discharge Date 07/21/21 <Maryana Valenzuela PA-C - Last Filed: 07/21/21 14:56> Admitting Diagnosis COPD exacerbation, acute and chronic respiratory failure <Maryana Valenzuela PA-C - Last Filed: 07/21/21 14:56> DS: Discharge Diagnosis Discharge Diagnosis (1) Acute and chronic respiratory failure: Qualifiers: Respiratory failure complication: hypoxia and hypercapnia Qualified Code(s): J96.21 - Acute and chronic respiratory failure with hypoxia; J96.22 - Acute and chronic respiratory failure with hypercapnia <Maryana Valenzuela PA-C - Last Filed: 07/21/21 14:56> Code(s): J96.20 - Acute and chronic respiratory failure, unspecified whether with hypoxia or hypercapnia <Maryana Valenzuela PA-C - Last Filed: 07/21/21 14:56> Status: Acute <Maryana Valenzuela PA-C - Last Filed: 07/21/21 14:56> Assessment and Plan: The patient is chronically on 3 L per nasal cannula. Most likely has chronic hypercapnia. Chronic hypoxia. The patient is currently on 4L, took bipap off around 0400 as he was unable to tolerate it. ABG this morning with improved pH of 7.325 and Co2 of 77. Po2 decreased to 56. Increased to 5L nasal cannula. Will consider putting him back on bipap pending pulm consult. Pulm Dr. Gonzalez states to leave patient on 4L NC with Bipap overnight and as needed throughout the day. Will recheck ABG tomorrow morning. 07/20/21 Pt was on his home bipap last night for 1 hour but oxygen sats were reportedly in the 60s. He was switched to hospital Bipap after that with settings of /16 which patient has a very difficult time tolerating. He was on 5L NC when I evaluated him this morning. Pt evaluated this morning by Dr. Gonzalez. Plan is to continue prednisone, neb treatments, azithromycin 3x/week. He is also going to obtain a download from [facility] medical supplies to determine his settings and assess his compliance. Dr. Gonzalez is also going to put pt on his home machine and titer his oxygen up while on overnight oximetry so as to maintain adequate oxygenation. Appreciate Dr. Gonzalez's input. Will check another ABG tomorrow morning. 07/21/[address] Gonzalez this morning. Pt w/ severe hypercapnic respiratory failure, ABG this morning w/ pH 7.[address] Gonzalez pulmonology states patient is ready for discharge. He would like pt to go home on Prednisone for 5 days total 40 mg BID, and continue his home meds including symbicort, duonebs QID, and azithromycin 3x/weekly. He also notes that he is currently working on coordinating an at home ventilator for the patient at this time. In the meantime he should go home on 5L NC, but is ordering a home O2 assessment. Pt will follow up in clinic 3-4 weeks. Appreciate the consult. Home O2 assessment, pt will go home on 3L at rest and 6L w/ exertion. <Maryana Valenzuela PA-C - Last Filed: 07/21/21 14:56> (2) COPD exacerbation: Code(s): J44.1 - Chronic obstructive pulmonary disease with (acute) exacerbation <Maryana Valenzuela PA-C - Last Filed: 07/21/21 14:56> Status: Acute <Maryana Valenzuela PA-C - Last Filed: 07/21/21 14:56> Assessment and Plan: As above. <Maryana Valenzuela PA-C - Last Filed: 07/21/21 14:56> (3) Diastolic dysfunction: Code(s): I51.89 - Other ill-defined heart diseases <Maryana Valenzuela PA-C - Last Filed: 07/21/21 14:56> Status: Chronic <Maryana Valenzuela PA-C - Last Filed: 07/21/21 14:56> Assessment and Plan: Continued his lasix and hydrochlorothiazide. <Maryana Valenzuela PA-C - Last Filed: 07/21/21 14:56> (4) Depression with anxiety: Code(s): F41.8 - Other specified anxiety disorders <Maryana Valenzuela PA-C - Last Filed: 07/21/21 14:56> Status: Acute <Maryana Valenzuela PA-C - Last Filed: 07/21/21 14:56> Assessment and Plan:
--- NOTE | 2021-07-21 11:22 | HOMEO2EVAL ---
Evaluation was performed at [facility] Home Oxygen Evaluation RC: Home Oxygen (O2) Evaluation Start: 07/21/21 08:52 Freq: ONCE Status: Active Protocol: RPE Activity Type Activity Date Activity User E-Sign Co-Sign Detail Recorded Client Recorded Date Recorded By Document 07/21/21 11:00 EMILE [email or web address] 07/21/21 11:22 EMILE Document 07/21/21 11:01 EMILE [email or web address] 07/21/21 11:22 EMILE Document 07/21/21 11:02 EMILE [email or web address] 07/21/21 11:22 EMILE Document 07/21/21 11:03 EMILE [email or web address] 07/21/21 11:22 EMILE Document 07/21/21 11:04 EMILE [email or web address] 07/21/21 11:22 EMILE Document 07/21/21 11:05 EMILE [email or web address] 07/21/21 11:22 EMILE Document 07/21/21 11:06 EMILE [email or web address] 07/21/21 11:22 EMILE Document 07/21/21 11:15 EMILE [email or web address] 07/21/21 11:22 EMILE 07/21/21 07/21/21 07/21/21 11:00 11:01 11:02 Home O2 Evaluation Test Phase Resting Resting Resting Oxygen Delivery Room Air Nasal Cannula Nasal Cannula Oxygen Flow Rate (L/min) 2 3 Pulse Oximetry (90-100 %) 87 L 87 L 93 Pulse Rate (60-100 beats/min) 66 Ambulation Distance (feet) Home Oxygen Evaluation Comments Treatment Charges O2 Evaluation - Inpatient 07/21/21 07/21/21 07/21/21 11:03 11:04 11:05 Home O2 Evaluation Test Phase Exercise Exercise Exercise Oxygen Delivery Nasal Cannula Nasal Cannula Nasal Cannula Oxygen Flow Rate (L/min) 3 4 5 Pulse Oximetry (90-100 %) 85 L 87 L 87 L Pulse Rate (60-100 beats/min) 80 Ambulation Distance (feet) Home Oxygen Evaluation Comments Treatment Charges 07/21/21 07/21/21 11:06 11:15 Home O2 Evaluation Test Phase Exercise Resting Oxygen Delivery Nasal Cannula Nasal Cannula Oxygen Flow Rate (L/min) 6 3 Pulse Oximetry (90-100 %) 89 L 94 Pulse Rate (60-100 beats/min) 64 Ambulation Distance (feet) 150 Home Oxygen Evaluation Comments Pt requires 3 L at rest and 6 L with exertion Treatment Charges
--- NOTE | 2021-07-21 11:22 | PCRCNOTE ---
Will bring pt a tank for transport home, now reqjuires 6L with exertion. Also, I will contact [facility] [employer] to ensure pt has all required o2 equipment at home to provide higher O2 flow requirement ( 6L with exertion and 5L blled-in with Trilogy unit)
--- NOTE | 2021-07-21 17:42 | PC.NURSE ---
Patient was discharged to home and [facility] was to bring out his supplies. He was due to have a trillogy machine to be set up at home. Call was made to PFT lab before discharge and they stated the paperwork for the trillogy was finished and the patient should be able to discharge. [facility] brought the family a concentrator and supplies but did not bring the trillogy or portable tanks. Family had called [facility] and stated that they open at 0800 the next day and she will follow up with them. Family said they will use their home cpap tonight until they can get the equipment tomorrow.
== END 2021-07-21 16:50 | disposition home or self-care (01) | DRG 190 ==
LOC: ANHED 13:24 → ANHIMU 07-19 04:11 → ANH3MEDSUR 07-21 13:51 → ANHIMU 07-25 14:28
PROVIDERS: Internal Medicine Pulmonary Disease; Nurse Practitioner; Admitting Provider Internal Medicine; Emergency Provider Emergency Medicine; PCP Student in an Organized Health Care Education/Training Program; Visit Provider Physician Assistant
DX: J44.1 Chronic obstructive pulmonary disease with (acute) exacerbation (principal); J96.21 Acute and chronic respiratory failure with hypoxia; J96.22 Acute and chronic respiratory failure with hypercapnia; E87.1 Hypo-osmolality and hyponatremia; G47.33 Obstructive sleep apnea (adult) (pediatric); I10 Essential (primary) hypertension; F41.8 Other specified anxiety disorders; G40.909 Epilepsy, unspecified, not intractable, without status epilepticus; D64.9 Anemia, unspecified; I51.89 Other ill-defined heart diseases; E78.5 Hyperlipidemia, unspecified; I73.9 Peripheral vascular disease, unspecified; Z99.81 Dependence on supplemental oxygen; Z79.82 Long term (current) use of aspirin; Z85.46 Personal history of malignant neoplasm of prostate; Z87.891 Personal history of nicotine dependence
CPT/HCPCS: 36415; 36600; 71046; 80048; 80053; 80185; 82805; 83605; 83615; 83735; 84443; 84484; 85025; 85027; 86140; 93005; 94002; 94003; 94618; 94640; 94762; 96374; 97116; 97162; 97165; 99285; A9270; J2930; J7512

== ENCOUNTER 2021-08-06 23:33 | Inpatient (IN) | payer MEDICARE, SELFPAY ==
--- NOTE | ~2021-08-06 | XR_ITS ---
EXAMINATION: XR abdomen NG/feed tube insert EXAM DATE: 08/07/2021 05:43 INDICATION: Orogastric tube placement. TECHNIQUE: Frontal projection(s) of the abdomen for interpretation. There is no prior study for franchesca christine. FINDINGS: Feeding tube tip overlies left upper quadrant, side port at the gastroesophageal junction level. This could be safely advanced 5-10 cm. The right upper quadrant calcifications are calcified p eriportal lymph nodes, correlate with a prior CT abdomen. There is aortoiliac stent. Nonobstructive u pper abdominal bowel gas pattern. Right basilar predominant airspace disease. IMPRESSION: 1. Feeding tube tip in stomach, but could be safely advanced 5-10 cm. Reviewed, dictated and finalized at location A.
--- NOTE | ~2021-08-06 | XR_ITS ---
EXAMINATION: XR chest 1V portable EXAM DATE: 08/06/2021 23:45 INDICATION: Shortness of breath TECHNIQUE: Portable AP frontal chest x-ray was obtained. Comparison is made to prior examination from 07/18/2021, 06/25/2021, 06/22/2021. FINDINGS: Again there is diffuse abnormal reticulonodular airspace disease which does not appear sign ificantly changed going back to 06/22/2021. Correlating with prior CT pulmonary scan, Langerhans' cell histiocytosis and/or chronic infectious process. No confluent consolidation, pneumothorax or pleural effusion suspected. Cardiomediastinal silhouette is normal. There is aortic arteriosclerosis. There are no osseous abnormalities identified. IMPRESSION: Chronic diffuse abnormal reticulonodular airspace disease. Correlating with prior CT pulm onary scan, Langerhans' cell histiocytosis and/or chronic infectious process. Reviewed, dictated and finalized at location A. IMPRESSION: Chronic diffuse abnormal reticulonodular airspace disease. Correlat ing with prior CT pulmonary scan, Langerhans' cell histiocytosis and/or chronic infectious process.
--- NOTE | ~2021-08-06 | XR_ITS ---
EXAMINATION: XR chest ET placement EXAM DATE: 08/07/2021 05:43 INDICATION: Respiratory failure. TECHNIQUE: Portable AP frontal chest x-ray was obtained. Comparison is made to prior examination from 08/06/2021. FINDINGS: Endotracheal tube tip is 2 centimeters above the luciano. There is a nasogastric tube seen with tip collimated off the study, but below the left hemidiaphragm. Again there is moderate amount o f right-sided, mild left-sided abnormal reticulation, consistent with edema and/or pneumonia. Please clinically correlate. The cardiomediastinal silhouette is prominent but magnified on this AP techniqu e. There is no pneumothorax suspected. There are no pleural effusions. IMPRESSION: 1. Tubes in position. 2. Moderate right, mild left abnormal reticulation, pneumonia and/or edema. Reviewed, dictated and finalized at location A.
--- NOTE | ~2021-08-06 | XR_ITS ---
EXAMINATION: XR chest 1V portable DATE: 08/10/2021 06:02 INDICATION: Acute hypercapnic respiratory failure. Pneumonia. TECHNIQUE: frontal view of the chest was obtained. COMPARISON: Chest radiograph dated 08/09/2021 and 01/29/2020 FINDINGS: No significant change in reticular nodular opacities throughout the right lung and in the left lower lung zone which remains above the baseline from several months prior. No pleural effusion or pneumoth orax. The cardiomediastinal silhouette is normal. Left internal jugular central venous catheter with distal tip at the cephalad superior vena cava. IMPRESSION: 1. Unchanged opacities scattered throughout the right lung and in the left lower lung zone consistent with pneumonia versus less likely pulmonary edema superimposed over chronic emphysema and bronchiect atic varicose bronchiectasis better appreciated on prior CT. Reviewed, dictated and finalized at location A. IMPRESSION: 1. Unchanged opacities scattered throughout the right lung and in the left lowe r lung zone consistent with pneumonia versus less likely pulmonary edema superi mposed over chronic emphysema and bronchiectatic varicose bronchiectasis better appreciated on prior CT.
--- NOTE | ~2021-08-06 | XR_ITS ---
EXAMINATION: XR chest 2V DATE: 08/15/2021 08:36 INDICATION: Pneumonia and pulmonary edema TECHNIQUE: AP and lateral views of the chest are obtained. COMPARISON: 08/10/2021 FINDINGS: Patchy opacities persist throughout the right lung and in the left lung base with slight im provement. There is no pleural effusion or pneumothorax. The cardiomediastinal silhouette is normal. There is mild thoracic spondylosis. IMPRESSION: 1. Patchy bilateral airspace opacities with slight improvement, likely improving pneumonia. Reviewed, dictated and finalized at location B. ROOM CULTIVATOR IMPRESSION: 1. Patchy bilateral airspace opacities with slight improvement, likely improvin g pneumonia.
--- NOTE | ~2021-08-06 | XR_ITS ---
EXAMINATION: XR chest 1V portable EXAM DATE: 08/07/2021 08:18 INDICATION: central line placement. TECHNIQUE: Portable AP frontal chest x-ray was obtained. Comparison is made to prior examination from 08/07/2021. FINDINGS: Endotracheal tube tip is 3 centimeters above the luciano. There is a nasogastric tube seen with tip collimated off the study, but below the left hemidiaphragm. There is left IJ venous line. Moderate amount of right-sided, mild left-sided abnormal reticulation, pneumonia and/or asymmetric ed amy. No pneumothorax or sizable pleural effusion. The cardiomediastinal silhouette is prominent but m agnified on this AP technique. The bones and soft tissues are unremarkable. There is no significant interval change compared to prior exam. IMPRESSION: 1. Line and tube(s) in position. 2. Stable airspace disease as above. Reviewed, dictated and finalized at location A.
--- NOTE | ~2021-08-06 | XR_ITS ---
EXAMINATION: XR chest 1V portable DATE: 08/08/2021 06:02 INDICATION: Acute hypercapnic respiratory failure TECHNIQUE: frontal view of the chest was obtained. COMPARISON: Chest radiograph dated 08/07/[address] dated 06/26/2021 FINDINGS: Endotracheal tube tip 3.6 cm above the luciano. Nasogastric tube extends below the left hemidiaphragm with distal tip collimated off the study. Unchanged airspace opacities throughout the right mid to lower and in the left lower lung zones cyst with pneumonia. Increased lucency at the upper lung zones consistent with emphysema which along with underlying bronchiectasis is better appreciated on prior CT. No pneumothorax or definitive pleural ef fusion. The cardiomediastinal silhouette is within normal limits conifer rightward rotation of the pa tient. IMPRESSION: 1. Unchanged right-sided and basilar predominant airspace disease consistent with pneumonia and/or pu lmonary edema superimposed over emphysema and bronchiectasis. Reviewed, dictated and finalized at location A. IMPRESSION: 1. Unchanged right-sided and basilar predominant airspace disease consistent wi th pneumonia and/or pulmonary edema superimposed over emphysema and bronchiecta sis.
--- NOTE | ~2021-08-06 | XR_ITS ---
EXAMINATION: XR chest 1V portable DATE: 08/09/2021 05:43 INDICATION: Acute hypercapnic respiratory failure. Pneumonia. TECHNIQUE: frontal view of the chest was obtained. COMPARISON: Chest radiograph dated 08/08/2021 FINDINGS: Endotracheal tube tip 4.1 cm above the luciano. Nasogastric tube extends to at least the distal esopha shar with distal tip collimated off the study. Left internal jugular central venous catheter with dist al tip at the cephalad superior vena cava. Persistent opacities scattered throughout the right lung and in the left lower lung zone superimposed over emphysema bronchiectasis which is better appreciated on prior CT. No pleural effusion or pneumo thorax. The cardiomediastinal silhouette is normal. IMPRESSION: 1. Unchanged opacity scattered throughout the right lung and in the left lower lung zone consistent w ith pneumonia and/or pulmonary edema superimposed over emphysema and bronchiectasis. Reviewed, dictated and finalized at location A. IMPRESSION: 1. Unchanged opacity scattered throughout the right lung and in the left lower lung zone consistent with pneumonia and/or pulmonary edema superimposed over em physema and bronchiectasis.
[2021-08-06 23:32] VITALS: BP 145/72; PULSE 87; RESP 26; TEMP 35.5; O2SAT 98
[2021-08-06 23:38] VITALS: PULSE 92; RESP 29; O2SAT 98
[2021-08-06 23:43] VITALS: O2SAT 100
[2021-08-06 23:43] LABS: Basophils Absolute Auto 0.1 K/mm3 (0.0-0.1); Basophils Percent Auto 0.5 % (0.2-1.2); Eosinophils Absolute Auto 0.2 K/mm3 (0-0.3); Eosinophils Percent Auto 1.4 % (0-4.4); Hematocrit 42.5 % (42.0-52.0); Hemoglobin 12.4 g/dL (14.0-18.0); Immature Granulocyte Absolute 0.15 K/mm3 (0.00-0.031); Immature Granulocyte Percent A 1.3 % (0-0.5); Lymphocytes Absolute Auto 0.49 K/mm3 (0.9-3.2); Lymphocytes Percent Auto 4.3 % (18.3-44.2); Mean Corpuscular HGB Conc 29.2 g/dl (32-36); Mean Corpuscular Volume 106.3 fl (80-100); Mean Platelet Volume 9.6 fl (7.4-10.4); Monocytes Percent Auto 9.1 % (2.6-8.5); Neutrophils Absolute Auto 9.5 K/mm3 (1.3-6.7); Neutrophils Percent Auto 83.4 % (45.5-73.1); Nucleated Red Blood Cells Perc 0.2 % (0.0-0.2); Platelet Count Result 159 k/mm3 (150-375); Red Cell Distribution Width 16.8 % (11.5-14.5); White Blood Count 11.4 K/mm3 (4.5-10.0)
[2021-08-07] VITALS (55 sets, daily range): BP systolic 83–166; BP diastolic 46–66; PULSE 65–99; RESP 17–29; TEMP 34.5–37.8; O2SAT 85–100; BMI 34.0
--- NOTE | 2021-08-07 00:01 | PC.NURSE ---
at bedside at this time. she states pt was here about 2 weeks ago for the same reason. she states he is normally alert and oriented but today he was not. updated on treatment and tests we have done so far.
[2021-08-07 00:07] LABS: Alveolar/Arterial O2 Gradient 419.7 mmHg; Base Excess ABG 14.4 mEq/l (+/-2.0); Fractional Inspired Oxygen 100 %; HCO3 ABG 49.9 mEq/l (22.0-26.0); Oxygen Content ABG 17.2 %vol (16.0-22.0); Oxygen Saturation ABG 96.8 % (95.0-100.0); Oxyhemoglobin 96.1 % THb (90.0-100.0); PO2 ABG 129.5 mmHg (80.0-100.0); PO2 FiO2 Ratio Arterial Blood 1.29 %; Total Hemoglobin 12.6 g/dL (12.0-18.0)
[2021-08-07 00:09] LABS: pH ABG 7.102 (7.350-7.450)
[2021-08-07 00:10] LABS: Device BIPAP; PCO2 ABG 163.8 mmHg (35.0-45.0); Site Drawn RIGHT RADIAL
[2021-08-07 00:11] LABS: Expiratory Pressure 8 cmH2O; Inspiratory Pressure 16 cmH2O
[2021-08-07 00:17] LABS: INR 0.9; Prothrombin Time 11.7 Seconds (11.1-14.7)
[2021-08-07 00:19] LABS: Alanine Aminotransferase 17 U/L (4-50); Albumin Level 3.8 g/dL (3.5-5.1); Alkaline Phosphatase 156 U/L (38-126); Aspartate Amino Transferase 23 U/L (17-59); Bilirubin,Total 0.8 mg/dL (0.2-1.3); Blood Urea Nitrogen 24 mg/dL (9-20); Calcium 9.2 mg/dL (8.4-10.2); Carbon Dioxide > 40 mmol/L (22-30); Chloride 92 mmol/L (98-107); Estimated CRCL calculation 75 ml/min; Estimated Glomerular Filt Rate > 60; Glucose 168 mg/dL (65-110); Potassium 5.5 mmol/L (3.4-5.0); Sodium 140 mmol/L (137-145)
[2021-08-07 00:28] LABS: NT Pro B Type Natriuretic Pept 81 pg/mL (5-100)
[2021-08-07] MEDS: ALBUTEROL SULFATE NEB 2.5 MG/0.5 ML INH 15 MG INHALATION (01:06)
[2021-08-07] MEDS: IPRATROPIUM BR 0.02% INH SOLN 0.5 MG/2.5 ML VIAL 1.5 MG INHALATION (01:06)
--- NOTE | 2021-08-07 01:18 | ED.SOB ---
HPI - SOB/Dyspnea General Chief Complaint: Shortness of Breath/Dyspnea Stated Complaint: respiratory distress History of Present Illness HPI Narrative: Patient is a 70-year-old male who presents ER with respiratory distress. Patient has had increased confusion and difficulty breathing according to my for the last couple days. He has been attempting to use his BiPAP without improvement. No new fevers or chills or sweats. Denies any productive cough. Per EMS patient was found with pulse oximetry in the 50s/60s. Minimal improvement with CPAP in route. Related Data Home Medications Medication Instructions Recorded Confirmed aspirin 81 mg PO DAILY 11/05/19 07/18/21 atorvastatin 40 mg PO DAILY 06/22/21 07/18/21 clopidogrel 75 mg PO DAILY 06/22/21 07/18/21 fluoxetine 10 mg PO BID 06/22/21 07/18/21 hydrochlorothiazide 12.5 mg PO DAILY 06/22/21 07/18/21 ipratropium-albuterol 0.5 ml INHALATION QID PRN 06/22/21 07/18/21 lisinopril 20 mg PO DAILY 06/22/21 07/18/21 phenytoin sodium extended 100 mg PO Q8H 06/22/21 07/18/21 azithromycin [Zithromax] 500 mg PO QMWF 07/18/21 07/18/21 bicalutamide 50 mg PO DAILY 07/18/21 07/18/21 furosemide 20 mg PO DAILY PRN 07/18/21 07/18/21 omeprazole 40 mg PO DAILY 07/18/21 07/18/21 topiramate 25 mg PO DAILY 07/18/21 07/18/21 Allergies Allergy/AdvReac Type Severity Reaction Status Date / Time No Known Allergies Allergy Verified 06/22/21 12:17 Review of Systems Review of Systems: ROS unobtainable: Yes unobtainable due to mental status PMFSH Past Medical History Medical History Bronchiectasis Apparently uses vibratory vest b.i.d. for [address] Wang. Chronic back pain Colon cancer screening COPD (chronic obstructive pulmonary disease) Diastolic dysfunction Echocardiogram in November 06, 2019 showed mild increase in LV wall thickness, grossly normal LV wall motion, ejection fraction estimated > 70%, grade 1 diastolic dysfunction, and mild tricuspid valve regurgitation. Dysphagia Hyperlipidemia Hypertension Macrocytic anemia Obstructive sleep apnea On home O2 PAD (peripheral artery disease) Prostate cancer Status post radiation. On anti androgens. Secondary pulmonary hypertension Noted on echocardiogram 11/06/2019 with an estimated peak RVSP of 70 millimeters of mercury. Seizure disorder Surgical History Surgical History H/O eye surgery Left eye History of AAA (abdominal aortic aneurysm) repair History of vascular surgery Stents to bilateral lower extremities. Family History Family History Sibling Diabetes mellitus Mother Heart disease Social History Social History (Updated 07/18/21 @ 20:31 by Mirian Medina NP) Social History: The patient lives with his in [place]. They have 4 children. He designates his , Jeanette, as his surrogate decision maker. He is currently listed as a full code at the urging of his . He has smoked for 55 years, smoking as much as 2 packs of cigarettes per day for 10 years. It is unclear when he actually has quit smoking. No alcohol or drug use. Code status full code Smoking packs per day: 1 Smoking cigarettes per day: 20.0 Years smoked: 60 Smoking pack-years: 60.00 Smoking status: Former smoker Alcohol intake: never Substance use: never Substance use type: does not use Gender identity (if verbalized by the patient): Male Spiritual care concerns: No Agree to blood products: Yes Exam Narrative: GENERAL: Ill-appearing, well-nourished, and in moderate distress. HEAD: Normocephalic, atraumatic. EYES: PERRL and EOMI. ENT: Mucous membranes moist. CHEST: Poor air movement and diffuse wheezing. Patient with moderate respiratory distress. HEART: Regular rate and rhythm. Normal peripheral pulses. ABDOMEN: So
[2021-08-07] MEDS: ALBUTEROL SULFATE NEB 2.5 MG/0.5 ML INH 5 MG INHALATION ×3 (02:02→20:44)
[2021-08-07] MEDS: IPRATROPIUM BR 0.02% INH SOLN 0.5 MG/2.5 ML VIAL INHALATION ×3 (02:03→20:44)
[2021-08-07 04:06] LABS: Alveolar/Arterial O2 Gradient 233.8 mmHg; Base Excess ABG 13.9 mEq/l (+/-2.0); Fractional Inspired Oxygen 100 %; HCO3 ABG 49.4 mEq/l (22.0-26.0); Oxygen Content ABG 17.1 %vol (16.0-22.0); Oxygen Saturation ABG 99.4 % (95.0-100.0); Oxyhemoglobin 97.8 % THb (90.0-100.0); PO2 ABG 308.3 mmHg (80.0-100.0); PO2 FiO2 Ratio Arterial Blood 3.08 %; Total Hemoglobin 11.9 g/dL (12.0-18.0)
[2021-08-07 04:08] LABS: Device NON-INVASIVE VENT; Modified Allen's Test Pass; PCO2 ABG 170.9 mmHg (35.0-45.0); Site Drawn RIGHT RADIAL; pH ABG 7.079 (7.350-7.450)
[2021-08-07 04:09] LABS: Non-Invasive Expiratory Pressure 8 CMH2O; Non-Invasive Inspiratory Pressure 16 CMH2O; Non-Invasive Vent Rate 24 /MIN
--- NOTE | 2021-08-07 04:24 | PC.NURSE ---
EDP at bedside at this time for intubation.
[2021-08-07] MEDS: FENTANYL 2,500MCG/NS250ML(*CRX 2,500 MCG/250 ML BAG IV CONT (04:55)
[2021-08-07 04:57] LABS: Lactic Acid Reflex 0.5 mmol/L (0.7-2.1)
[2021-08-07] MEDS: MIDAZOLAM 100MG/NS 100ML(*CRX) 100 MG/100 ML BAG IV CONT (04:57)
[2021-08-07] MEDS: FUROSEMIDE INJ 40 MG/4 ML VIAL (05:01)
[2021-08-07] MEDS: MIDAZOLAM HCL (*CRX) 2 MG/2 ML VIAL IV PUSH ×2 (05:19→07:50)
--- NOTE | 2021-08-07 05:19 | PM.IMHP ---
H&P: HPI History of Present Illness Date/Time: 08/07/21 05:19 Chief Complaint: Altered mental status Narrative: This is a 70-year-old male with past medical history significant for pulmonary hypertension, emphysema/COPD/asthma, chronic hypercarbic respiratory failure, hypo chronic hypoxic respiratory failure, patient is on 3 L of supplemental oxygen at rest and 6 L of oxygen with activity, obstructive sleep apnea on noninvasive home ventilator at nighttime. Patient does had a recent admission and discharge for COPD exacerbation and was discharged home most of the history has been obtained for upon review of medical records and who is at bedside in the emergency room according to her the patient really never did well after discharge she noticed a progressive decline on his mentation and today he was very sleepy on acid were getting ready for bed she walked him to the bathroom and decided to check his oxygen saturation according to the home O2 saturation devise his oxygen saturation was 50% call ambulance and the patient was rushed to the hospital. Preliminary workup was significant for a blood gas with pH of 7.1, a pCO2 of 160 a PO2 of 129 patient was placed on BiPAP but after temporary recovery patient then declined progressively requiring intubation and ventilator support. Review of Systems Review of Systems: ROS unobtainable: Yes unobtainable due to medical condition (On BiPAP) and unobtainable due to mental status (Altered mental status) [facility] Past Medical History Medical History (Updated 08/07/21 @ 05:34 by Byron Lee MD) Bronchiectasis Apparently uses vibratory vest b.i.d. for [address] Wang. Chronic back pain Colon cancer screening COPD (chronic obstructive pulmonary disease) Diastolic dysfunction Echocardiogram in November 06, 2019 showed mild increase in LV wall thickness, grossly normal LV wall motion, ejection fraction estimated > 70%, grade 1 diastolic dysfunction, and mild tricuspid valve regurgitation. Dysphagia Hyperlipidemia Hypertension Macrocytic anemia Obstructive sleep apnea On home O2 PAD (peripheral artery disease) Prostate cancer Status post radiation. On anti androgens. Secondary pulmonary hypertension Noted on echocardiogram 11/06/2019 with an estimated peak RVSP of 70 millimeters of mercury. Seizure disorder Surgical History Surgical History H/O eye surgery Left eye History of AAA (abdominal aortic aneurysm) repair History of vascular surgery Stents to bilateral lower extremities. Family History Family History Sibling Diabetes mellitus Mother Heart disease Social History Social History (Updated 07/18/21 @ 20:31 by Mirian Medina NP) Social History: The patient lives with his in [place]. They have 4 children. He designates his , Jeanette, as his surrogate decision maker. He is currently listed as a full code at the urging of his . He has smoked for 55 years, smoking as much as 2 packs of cigarettes per day for 10 years. It is unclear when he actually has quit smoking. No alcohol or drug use. Code status full code Smoking packs per day: 1 Smoking cigarettes per day: 20.0 Years smoked: 60 Smoking pack-years: 60.00 Smoking status: Former smoker Alcohol intake: never Substance use: never Substance use type: does not use Gender identity (if verbalized by the patient): Male Spiritual care concerns: No Agree to blood products: Yes Meds Home Medications and Allergies Home Medications Medication Instructions Recorded Confirmed Type aspirin 81 mg PO DAILY 11/05/19 07/18/21 History atorvastatin 40 mg PO DAILY 06/22/21 08/07/21 History clopidogrel 75 mg PO DAILY 06/22/21 08/07/21 History fluoxetine 10 mg PO BID 06/22/21 07/18/21 History hydrochlorothiazide 12.5 mg PO DAILY 06/22/21 08/07/21
[2021-08-07] MEDS: methylPREDNISolone SOD SUCC 125 MG VIAL IV PUSH ×2 (06:25→11:00)
--- NOTE | 2021-08-07 06:40 | PC.NURSE ---
This patient, Quentin Zavaleta, was admitted to Intensive Care Unit-6. Patient/family oriented to hospital policies and general routines including ID bracelet, bed and alarms, visiting hours, pain management, procedures, bathroom and other care routines, personal items, smoking policy, room service/diet, and visiting hours. Information on how to activate the Rapid Response Team has been discussed. Patient/Family are encouraged to report perceived risks to care and to ask questions if they do not understand what they are told or what they should do.
--- NOTE | 2021-08-07 07:07 | PC.NURSE ---
30mg of etomidate and 100mg of succinylcholine given at 0436 per EDP Tuan. pt intubated at 0438. 7.5 tube and 25cm at the lip. Barehugger applied to pt at 0441. 2mg of versed given IV push per EDP Cam for pt getting agitated. pt Blood pressure 83/54, EDP Tuan notified. VORB 200mL bolus of Normal Saline given at 0534.
--- NOTE | 2021-08-07 07:26 | PM.IMPN ---
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 Patient He was recently hospitalized from 07/18/21-07/21/21 He presented to ED with shortness of breath and appropriately started on BiPAP. Patient was failing BiPAP with PCO2 increasing to 170. Patient was intubated and accepted by Dr. Fisher to the ICU. Currently patient remains on ventilator support. V Continue albuterol and ipratropium nebulization. Chest x-ray: Chronic diffuse abnormal reticulonodular airspace disease. Correlating with prior CT pulmonary scan, Langerhans' cell histiocytosis and/or chronic infectious process. [id number] Sepsis workup in progress. Blood cultures are pending at the time of this dictation. Patient developed hypothermia Patient with recent hospitalization Will start broad-spectrum antibiotics Await cultures (2) Secondary pulmonary hypertension: Status: Acute Assessment and Plan: Currently on ventilator support (3) Obstructive sleep apnea: Code(s): G47.33 - Obstructive sleep apnea (adult) (pediatric) Status: Acute Assessment and Plan: On ventilator support (4) Bronchiectasis: Code(s): J47.9 - Bronchiectasis, uncomplicated Status: Acute Assessment and Plan: Pulmonary toilet with albuterol and ipratropium. (5) Altered mental status: Code(s): R41.82 - Altered mental status, unspecified Status: Acute Assessment and Plan: Likely secondary to hypercarbic respiratory failure. Currently intubated and sedated on mechanical ventilation. (6) Chronic back pain: Code(s): M54.9 - Dorsalgia, unspecified; G89.29 - Other chronic pain Status: Acute Assessment and Plan: Currently on fentanyl and Versed for sedation ventilator support (7) Diastolic dysfunction: Code(s): I51.89 - Other ill-defined heart diseases Status: Chronic Assessment and Plan: Medel in Creatinine is 1, BUN is 24. Strict monitoring of intake and output daily. Subjective Date/time seen: Background: This is a 70-year-old male with past medical history significant for pulmonary hypertension, emphysema/COPD/asthma, chronic hypercarbic respiratory failure, hypo chronic hypoxic respiratory failure, patient is on 3 L of supplemental oxygen at rest and 6 L of oxygen with activity, obstructive sleep apnea on noninvasive home ventilator at nighttime. Patient does had a recent admission and discharge for COPD exacerbation and was discharged home most of the history has been obtained for upon review of medical records and who is at bedside in the emergency room according to her the patient really never did well after discharge she noticed a progressive decline on his mentation and today he was very sleepy on acid were getting ready for bed she walked him to the bathroom and decided to check his oxygen saturation according to the home O2 saturation devise his oxygen saturation was 50% call ambulance and the patient was rushed to the hospital. Preliminary workup was significant for a blood gas with pH of 7.1, a pCO2 of 160 a PO2 of 129 patient was placed on BiPAP but after temporary recovery patient then declined progressively requiring intubation and ventilator support. Patient intubated and accepted by Dr. Fisher to
[2021-08-07] MEDS: LACTATED RINGERS 1,000 ML 999 ML IV CONT ×2 (07:30→09:24)
[2021-08-07 08:52] LABS: Alveolar/Arterial O2 Gradient 340.4 mmHg; Base Excess ABG 14.1 mEq/l (+/-2.0); Carboxyhemoglobin 0.2 % THb (0-2.0); Fractional Inspired Oxygen 100 %; HCO3 ABG 43.6 mEq/l (22.0-26.0); Methemoglobin ABG 0.3 %THb (0-1.5); Oxygen Content ABG 16.4 %vol (16.0-22.0); Oxygen Saturation ABG 99.6 % (95.0-100.0); Oxyhemoglobin 98.4 % THb (90.0-100.0); PO2 ABG 285.5 mmHg (80.0-100.0); PO2 FiO2 Ratio Arterial Blood 2.86 %; Reduced Hemoglobin 1.1 %THb (0-5.0); Total Hemoglobin 11.3 g/dL (12.0-18.0); pH ABG 7.317 (7.350-7.450)
[2021-08-07 08:55] LABS: PCO2 ABG 87.1 mmHg (35.0-45.0)
[2021-08-07 08:56] LABS: Arterial Blood Gas PEEP 5 cmH2O; Arterial Blood Gas Tidal Volume 350 ml; Arterial Blood Gas Vent Mode CMV; Arterial Blood Gas Ventilator rate 24 /MIN; Device VENTILATOR; Modified Allen's Test Pass; Site Drawn RIGHT RADIAL
[2021-08-07] MEDS: NOREPINEPHRINE 8 MG/D5W 250 ML 8 MG/250 ML BAG 9.38 MG IV CONT (10:35)
[2021-08-07] MEDS: ALBUTEROL SULFATE NEB 2.5 MG/0.5 ML INH 20 MG INHALATION (10:46)
[2021-08-07] MEDS: PANTOPRAZOLE SODIUM IV 40 MG VIAL IV PUSH (11:11)
[2021-08-07] MEDS: ENOXAPARIN 40 MG/0.4 ML SYRINGE SUB-Q (11:11)
[2021-08-07 11:13] LABS: Hematocrit 32.9 % (42.0-52.0); Mean Corpuscular HGB Conc 30.4 g/dl (32-36); Mean Corpuscular Hemoglobin 31.5 pg (26-34); Mean Corpuscular Volume 103.8 fl (80-100); Mean Platelet Volume 9.1 fl (7.4-10.4); Platelet Count Result 129 k/mm3 (150-375); Red Blood Count 3.17 M/mm3 (4.6-6.20); Red Cell Distribution Width 16.8 % (11.5-14.5); White Blood Count 10.7 K/mm3 (4.5-10.0)
[2021-08-07 11:26] LABS: Alanine Aminotransferase 15 U/L (4-50); Albumin Level 3.1 g/dL (3.5-5.1); Alkaline Phosphatase 110 U/L (38-126); Aspartate Amino Transferase 24 U/L (17-59); Bilirubin,Total 1.4 mg/dL (0.2-1.3); Blood Urea Nitrogen 27 mg/dL (9-20); Calcium 8.7 mg/dL (8.4-10.2); Carbon Dioxide > 40 mmol/L (22-30); Chloride 92 mmol/L (98-107); Estimated CRCL calculation 56 ml/min; Estimated Glomerular Filt Rate 55; Glucose 96 mg/dL (65-110); Magnesium 1.9 mg/dL (1.6-2.3); Phosphorus 3.6 mg/dL (2.5-4.5); Potassium 5.5 mmol/L (3.4-5.0); Sodium 137 mmol/L (137-145)
[2021-08-07 11:36] LABS: Anisocytosis 1+ (NORMAL); Band Neutrophils Percent 17 % (0-6); Monocytes Absolute Manual 0.85 K/mm3 (0.1-0.90); Monocytes Percent Manual 8 % (3-9); Neutrophils Absolute Manual 9.84 K/mm3 (1.3-6.7); Neutrophils Percent Manual 75 % (46-73); Platelet Estimate Decreased (Adequate); Total Cells Counted 100
[2021-08-07] MEDS: methylPREDNISolone SOD SUCC 125 MG VIAL 60 MG IV PUSH ×3 (12:07→23:18)
--- NOTE | 2021-08-07 12:26 | WPDCNINT ---
Assessment and Plan Assessment and plan (1) Acute and chronic respiratory failure with hypercapnia: Code(s): J96.22 - Acute and chronic respiratory failure with hypercapnia Status: Acute Assessment and Plan: Acute hypercapnic respiratory failure likely related to COPD exacerbation, possible pneumonia -patient was encephalopathic which could be likely related to hypercapnia -currently on CMV mode of ventilation peep of 5, FiO2 decreased to 50%. Patient has had elevated peak pressures, will give continues nebulizer -sedated with fentanyl and Versed infusion -continue bronchodilators -will add Pulmicort (2) COPD exacerbation: Code(s): J44.1 - Chronic obstructive pulmonary disease with (acute) exacerbation Status: Acute Assessment and Plan: Significant hypercapnia on ABGs, failed BiPAP -continue steroids, antibiotics, bronchodilators (3) Shock: Code(s): R57.9 - Shock, unspecified Status: Acute Assessment and Plan: Shock could be related to sepsis, positive-pressure ventilation, hypovolemia -patient has been adequately fluid resuscitated -lactic acid is 0.5 -will continue maintenance IV fluids -patient on Levophed, will target mean arterial pressures > 65 mmHg for adequate end organ perfusion -continue vancomycin and Zosyn -blood cultures have been obtained and pending -patient has thick ETT secretions, will check sputum culture (4) Encephalopathy: Code(s): G93.40 - Encephalopathy, unspecified Status: Acute Assessment and Plan: Encephalopathy likely related to severe hypercapnia with a pCO2 level of 170 -currently on mechanical ventilation, pCO2 trending down -sedation vacation to evaluate mentation (5) DVT prophylaxis: Code(s): Z29.9 - Encounter for prophylactic measures, unspecified Status: Acute Assessment and Plan: DVT prophylaxis: Lovenox Stress ulcer prophylaxis: Protonix Additional Plan Code status: Full code Critical care time spent: 46 minutes This dictation may have been done utilizing a voice recognition system. Attempts have been made to correct errors. However, there may be uncorrected grammatical, spelling, and recognition errors present. Due to a high probability of clinically significant, life threatening deterioration, the patient required my highest level of preparedness to intervene emergently and I personally spent this critical care time directly and personally managing the patient. This critical care time included obtaining a history; examining the patient; pulse oximetry; ordering and review of studies; arranging urgent treatment with development of a management plan; evaluation of patient's response to treatment; frequent reassessment; and discussions with other providers. It was exclusive of separately billable procedures and treating other patients and teaching time. Please see Assessment and Plan section and the rest of the note for further information on patient assessment and treatment [facility] Consult Note Consult date: 08/07/21 Time Seen: 06:58 Reason for consult: Acute respiratory failure, COPD exacerbation, possible pneumonia HPI: Quentin Zavaleta is a 70 year old male with past medical history of COPD, chronic respiratory failure on 3 L oxygen at rest and 6 L oxygen via nasal cannula with activity, hyperlipidemia, anemia, obstructive sleep apnea, peripheral artery disease, prostate cancer status post radiation, seizure disorder, chronic back pain, bronchiectasis presented the ED with increasing shortness of breath and respiratory distress along with confusion for the last few days. According the since his discharge on 07/21 patient has not been doing too well and has had progressive decline of his mentation and has been very somnolent on the day of admission. She checked his O2 sats at home which were 50% in the EMS was called. In the ER ABGs showed a pH of 7.1 pCO2 of 160 and PO2 of 129. Patient was p
--- NOTE | 2021-08-07 12:53 | P.PCNBED_ITS ---
Procedures Central Line Placement Left IJ: Central Line Date: 08/07/21 Performed Emergently - Given emergent patient condition, temporal constraints may have precluded informed consent.: Yes Time Out Performed: Yes Patient Position: supine Patient placed on monitor/pulse ox: Yes Provider Prep: mask, sterile gown, sterile gloves, Max. sterile barrier precautions, cap and hand hygiene with conventional soap/water or alcohol based hand rub Central line prep: 2% Chlorhexidine scrub Local anesthesia used: lidocaine 1% Amount of anesthesia used (ml): 3 Sterile US Technique with sterile gel/sterile probe covers: Yes Central line lumen inserted: triple [place] Citizen: 12 Length (cm): 16 Depth of Insertion (cm): 16 Post Procedure: sutured in place, good blood return, all ports aspirated, flushed, capped, transparent dressing, hemostatic product, antimicrobial product, securement product and aseptic technique maintained throughout procedure Post procedure x-ray: tip of catheter in good position Patient tolerated procedure: well and no complications Complications: none
[2021-08-07] MEDS: SODIUM CHLORIDE 0.9% IV 1,000 ML 75 ML IV CONT (12:57)
[2021-08-07] MEDS: CENTRAL LINE FLUSH 10 ML IV PUSH ×3 (14:10→19:53)
--- NOTE | 2021-08-07 18:05 | PC.NURSE ---
Updated spouse, Jenaette, on patient condition and plan of care.
[2021-08-07] MEDS: BUDESONIDE RESPULE NEB 0.5 MG/2 ML AMP INHALATION (20:44)
[2021-08-08] VITALS (32 sets, daily range): BP systolic 105–138; BP diastolic 53–106; PULSE 72–89; RESP 24–25; TEMP 36.4–37.8; O2SAT 90–98; BMI 33.9
[2021-08-08] MEDS: IPRATROPIUM BR 0.02% INH SOLN 0.5 MG/2.5 ML VIAL INHALATION ×4 (02:28→20:22)
[2021-08-08] MEDS: ALBUTEROL SULFATE NEB 2.5 MG/0.5 ML INH 5 MG INHALATION ×4 (02:28→20:21)
[2021-08-08 04:37] LABS: Basophils Percent Auto 0.2 % (0.2-1.2); Eosinophils Percent Auto 0.1 % (0-4.4); Hematocrit 30.7 % (42.0-52.0); Hemoglobin 9.3 g/dL (14.0-18.0); Immature Granulocyte Absolute 0.11 K/mm3 (0.00-0.031); Immature Granulocyte Percent A 0.9 % (0-0.5); Lymphocytes Absolute Auto 0.27 K/mm3 (0.9-3.2); Lymphocytes Percent Auto 2.2 % (18.3-44.2); Mean Corpuscular HGB Conc 30.3 g/dl (32-36); Mean Corpuscular Hemoglobin 30.4 pg (26-34); Mean Corpuscular Volume 100.3 fl (80-100); Mean Platelet Volume 9.6 fl (7.4-10.4); Monocytes Absolute Auto 0.7 K/mm3 (0.1-0.6); Neutrophils Absolute Auto 11.3 K/mm3 (1.3-6.7); Neutrophils Percent Auto 90.6 % (45.5-73.1); Platelet Count Result 139 k/mm3 (150-375); Red Blood Count 3.06 M/mm3 (4.6-6.20); Red Cell Distribution Width 16.6 % (11.5-14.5); White Blood Count 12.4 K/mm3 (4.5-10.0)
[2021-08-08 04:50] LABS: Alveolar/Arterial O2 Gradient 127.9 mmHg; Base Excess ABG 10.4 mEq/l (+/-2.0); Carboxyhemoglobin 0.9 % THb (0-2.0); Fractional Inspired Oxygen 40 %; HCO3 ABG 39.9 mEq/l (22.0-26.0); Methemoglobin ABG 0.3 %THb (0-1.5); Oxygen Content ABG 15.9 %vol (16.0-22.0); Oxygen Saturation ABG 88.8 % (95.0-100.0); Oxyhemoglobin 89.4 % THb (90.0-100.0); PO2 ABG 63.2 mmHg (80.0-100.0); PO2 FiO2 Ratio Arterial Blood 1.58 %; Reduced Hemoglobin 9.4 %THb (0-5.0); Total Hemoglobin 12.6 g/dL (12.0-18.0); pH ABG 7.306 (7.350-7.450)
[2021-08-08 04:51] LABS: Lactic Acid Reflex 0.9 mmol/L (0.7-2.1)
[2021-08-08 04:51] LABS: Modified Allen's Test Pass; PCO2 ABG 81.8 mmHg (35.0-45.0); Site Drawn LEFT RADIAL
[2021-08-08 04:52] LABS: Arterial Blood Gas PEEP 5 cmH2O; Arterial Blood Gas Tidal Volume 350 ml; Arterial Blood Gas Vent Mode CMV; Arterial Blood Gas Ventilator rate 24 /MIN; Device VENTILATOR
[2021-08-08 05:12] LABS: Anisocytosis 1+ (NORMAL); Hypochromasia 1+ (NORMAL)
[2021-08-08 05:36] LABS: Alanine Aminotransferase 15 U/L (4-50); Alkaline Phosphatase 92 U/L (38-126); Aspartate Amino Transferase 24 U/L (17-59); Bilirubin,Total 0.6 mg/dL (0.2-1.3); Blood Urea Nitrogen 30 mg/dL (9-20); Calcium 8.5 mg/dL (8.4-10.2); Carbon Dioxide > 40 mmol/L (22-30); Chloride 92 mmol/L (98-107); Estimated CRCL calculation 65 ml/min; Estimated Glomerular Filt Rate > 60; Glucose 107 mg/dL (65-110); Phosphorus 3.9 mg/dL (2.5-4.5); Potassium 4.7 mmol/L (3.4-5.0); Sodium 136 mmol/L (137-145)
[2021-08-08] MEDS: CENTRAL LINE FLUSH 10 ML IV PUSH ×4 (05:36→23:09)
[2021-08-08] MEDS: methylPREDNISolone SOD SUCC 125 MG VIAL 60 MG IV PUSH ×4 (05:36→23:20)
[2021-08-08] MEDS: SODIUM CHLORIDE 0.9% IV 1,000 ML 75 ML IV CONT ×2 (05:38→23:25)
[2021-08-08] MEDS: ENOXAPARIN 40 MG/0.4 ML SYRINGE SUB-Q (08:14)
[2021-08-08] MEDS: PANTOPRAZOLE SODIUM IV 40 MG VIAL IV PUSH (08:14)
[2021-08-08] MEDS: BUDESONIDE RESPULE NEB 0.5 MG/2 ML AMP INHALATION ×2 (09:12→20:22)
[2021-08-08] MEDS: FENTANYL 2,500MCG/NS250ML(*CRX 2,500 MCG/250 ML BAG 10 MCG IV CONT (12:42)
[2021-08-08] MEDS: MIDAZOLAM 100MG/NS 100ML(*CRX) 100 MG/100 ML BAG IV CONT (12:43)
--- NOTE | 2021-08-08 13:16 | WPDINTPN ---
Progress Note: A&P Assessment and Plan (1) Acute and chronic respiratory failure with hypercapnia: Code(s): J96.22 - Acute and chronic respiratory failure with hypercapnia Status: Acute Assessment and Plan: Acute hypercapnic respiratory failure likely related to COPD exacerbation, possible pneumonia -patient was encephalopathic which could be likely related to hypercapnia -currently on CMV mode of ventilation peep of 5, 40% FiO2. Peak pressures have improved, will increase tidal volume to 430 mL -sedated with fentanyl and Versed infusion -continue bronchodilators -continue Pulmicort (2) COPD exacerbation: Code(s): J44.1 - Chronic obstructive pulmonary disease with (acute) exacerbation Status: Acute Assessment and Plan: Significant hypercapnia on ABGs, failed BiPAP -continue steroids, antibiotics, bronchodilators (3) Shock: Code(s): R57.9 - Shock, unspecified Status: Acute Assessment and Plan: RESOLVED, OFF LEVOPHED Shock could be related to sepsis, positive-pressure ventilation, hypovolemia -patient has been adequately fluid resuscitated -lactic acid is 0.5 -will continue maintenance IV fluids -patient on Levophed, will target mean arterial pressures > 65 mmHg for adequate end organ perfusion -continue vancomycin and Zosyn -08/07: BLOOD CULTURES NEGATIVE X2, -08/07: SPUTUM CULTURE -no organism seen (4) Encephalopathy: Code(s): G93.40 - Encephalopathy, unspecified Status: Acute Assessment and Plan: Encephalopathy likely related to severe hypercapnia with a pCO2 level of 170 -currently on mechanical ventilation, pCO2 trending down -sedation vacation to evaluate mentation -improving, patient opens his eyes, follows simple commands in all extremities mother is pCO2 levels in the 80s (5) DVT prophylaxis: Code(s): Z29.9 - Encounter for prophylactic measures, unspecified Status: Acute Assessment and Plan: DVT prophylaxis: Lovenox Stress ulcer prophylaxis: Protonix Additional Plan D/w , Jeanette, in the conference room. And updated with patient's condition plan of care. She stated that he did not want to be intubated but consented to the ER physician's to intubate him. She is feeling remorseful about that. She stated that she will withdraw support by , 08/11/2021 if he is not extubated by then. But she wants her 4 children who are out of state to come and visit him. The bedside nurse did tell her that there is a visitor policy of 1 person per day, I did tell her that we will try our best to see if we can get all her 4 children to see the patient for withdrawal of support. Code status: Full code Critical care time spent: 36 minutes This dictation may have been done utilizing a voice recognition system. Attempts have been made to correct errors. However, there may be uncorrected grammatical, spelling, and recognition errors present. Due to a high probability of clinically significant, life threatening deterioration, the patient required my highest level of preparedness to intervene emergently and I personally spent this critical care time directly and personally managing the patient. This critical care time included obtaining a history; examining the patient; pulse oximetry; ordering and review of studies; arranging urgent treatment with development of a management plan; evaluation of patient's response to treatment; frequent reassessment; and discussions with other providers. It was exclusive of separately billable procedures and treating other patients and teaching time. Please see Assessment and Plan section and the rest of the note for further information on patient assessment and treatment Subjective Date/time seen: 08/08/21 13:16 Interval history: Reason for consult: Acute respiratory failure, COPD exacerbation, possible pneumonia 08/08/2021: Patient seen and examined the ICU, remains intubated, on CMV mode of ventila
[2021-08-08 14:57] LABS: CRP 28.1 mg/dL (<1.0)
[2021-08-08] MEDS: MINERAL OIL/WHITE PETROLATUM OINTMENT 1 APPLIC EACH EYE (19:58)
[2021-08-08 23:38] LABS: Glucose Point of Care 137 mg/dl (65-105)
[2021-08-09] VITALS (27 sets, daily range): BP systolic 129–165; BP diastolic 51–79; PULSE 67–100; RESP 19–28; TEMP 36.3–36.8; O2SAT 24–100
[2021-08-09] MEDS: ALBUTEROL SULFATE NEB 2.5 MG/0.5 ML INH 5 MG INHALATION ×4 (01:39→20:32)
[2021-08-09] MEDS: IPRATROPIUM BR 0.02% INH SOLN 0.5 MG/2.5 ML VIAL INHALATION ×4 (01:40→20:33)
[2021-08-09 04:50] LABS: Alveolar/Arterial O2 Gradient 132.6 mmHg; Base Excess ABG 7.9 mEq/l (+/-2.0); Carboxyhemoglobin 0.3 % THb (0-2.0); Fractional Inspired Oxygen 40 %; Methemoglobin ABG 0.2 %THb (0-1.5); Oxygen Content ABG 13.4 %vol (16.0-22.0); Oxygen Saturation ABG 94.9 % (95.0-100.0); Oxyhemoglobin 93.5 % THb (90.0-100.0); PO2 ABG 79.2 mmHg (80.0-100.0); PO2 FiO2 Ratio Arterial Blood 1.98 %; Total Hemoglobin 10.1 g/dL (12.0-18.0); pH ABG 7.357 (7.350-7.450)
[2021-08-09 04:52] LABS: Arterial Blood Gas PEEP 5 cmH2O; Arterial Blood Gas Tidal Volume 450 ml; Arterial Blood Gas Vent Mode CMV; Arterial Blood Gas Ventilator rate 24 /MIN; Device VENTILATOR; Modified Allen's Test Pass; PCO2 ABG 63.8 mmHg (35.0-45.0); Site Drawn RIGHT RADIAL
[2021-08-09] MEDS: methylPREDNISolone SOD SUCC 125 MG VIAL 60 MG IV PUSH ×2 (05:36→21:05)
[2021-08-09] MEDS: CENTRAL LINE FLUSH 10 ML IV PUSH ×4 (05:38→21:06)
[2021-08-09 06:54] LABS: Basophils Percent Auto 0.2 % (0.2-1.2); Eosinophils Percent Auto 0.1 % (0-4.4); Hematocrit 28.5 % (42.0-52.0); Hemoglobin 8.8 g/dL (14.0-18.0); Immature Granulocyte Absolute 0.07 K/mm3 (0.00-0.031); Immature Granulocyte Percent A 0.8 % (0-0.5); Lymphocytes Percent Auto 5.6 % (18.3-44.2); Mean Corpuscular HGB Conc 30.9 g/dl (32-36); Mean Corpuscular Hemoglobin 31.5 pg (26-34); Mean Corpuscular Volume 102.2 fl (80-100); Mean Platelet Volume 9.4 fl (7.4-10.4); Monocytes Absolute Auto 0.8 K/mm3 (0.1-0.6); Monocytes Percent Auto 8.7 % (2.6-8.5); Neutrophils Absolute Auto 7.5 K/mm3 (1.3-6.7); Neutrophils Percent Auto 84.6 % (45.5-73.1); Nucleated Red Blood Cells Perc 0.2 % (0.0-0.2); Platelet Count Result 136 k/mm3 (150-375); Red Blood Count 2.79 M/mm3 (4.6-6.20); Red Cell Distribution Width 16.4 % (11.5-14.5); White Blood Count 8.9 K/mm3 (4.5-10.0)
[2021-08-09 07:06] LABS: Lactic Acid Reflex 0.8 mmol/L (0.7-2.1)
[2021-08-09] MEDS: ENOXAPARIN 40 MG/0.4 ML SYRINGE SUB-Q (07:44)
[2021-08-09] MEDS: PANTOPRAZOLE SODIUM IV 40 MG VIAL IV PUSH (07:44)
[2021-08-09] MEDS: MINERAL OIL/WHITE PETROLATUM OINTMENT 1 APPLIC EACH EYE (07:44)
[2021-08-09] MEDS: BUDESONIDE RESPULE NEB 0.5 MG/2 ML AMP INHALATION ×2 (08:03→20:32)
[2021-08-09 08:10] LABS: Alanine Aminotransferase 14 U/L (4-50); Alkaline Phosphatase 82 U/L (38-126); Aspartate Amino Transferase 25 U/L (17-59); Bilirubin,Total 0.3 mg/dL (0.2-1.3); Blood Urea Nitrogen 33 mg/dL (9-20); Calcium 8.5 mg/dL (8.4-10.2); Carbon Dioxide > 40 mmol/L (22-30); Chloride 94 mmol/L (98-107); Estimated CRCL calculation 65 ml/min; Estimated Glomerular Filt Rate > 60; Glucose 139 mg/dL (65-110); Magnesium 2.4 mg/dL (1.6-2.3); Phosphorus 4.6 mg/dL (2.5-4.5); Potassium 4.7 mmol/L (3.4-5.0); Sodium 135 mmol/L (137-145)
[2021-08-09 09:26] LABS: Alveolar/Arterial O2 Gradient 131.5 mmHg; Base Excess ABG 5.7 mEq/l (+/-2.0); Fractional Inspired Oxygen 40 %; HCO3 ABG 33.1 mEq/l (22.0-26.0); Oxygen Content ABG 13.7 %vol (16.0-22.0); Oxygen Saturation ABG 94.5 % (95.0-100.0); Oxyhemoglobin 92.9 % THb (90.0-100.0); PO2 ABG 79.2 mmHg (80.0-100.0); PO2 FiO2 Ratio Arterial Blood 1.98 %; Total Hemoglobin 10.4 g/dL (12.0-18.0); pH ABG 7.326 (7.350-7.450)
[2021-08-09 09:28] LABS: Device VENTILATOR; Modified Allen's Test Pass; PCO2 ABG 64.8 mmHg (35.0-45.0); Site Drawn RIGHT RADIAL
[2021-08-09 09:29] LABS: Arterial Blood Gas PEEP 5 cmH2O; Arterial Blood Gas Pressure Support 8 cmH2O; Arterial Blood Gas Vent Mode SPONTANEOUS
--- NOTE | 2021-08-09 10:59 | PCDIET ---
Nutrition Follow-Up Complete: Nutrition Diagnosis: Inadequate oral intake related to oral intubation as evidenced by NPO status. Nutrition Goal: Patient to meet estimated nutritional needs. Goal in progress. Tube feedings currently held for anticipated extubation. Recommend resuming tube feeds later today if unable to extubate. Last recorded weight is 101.4 kg which is stable with last review. Bowel Motility: No documented BM as of yet. Labs Reviewed: RBC (2.79), Hgb (8.8), Hct (28.5), Glu (139), BUN (33), Na (135), Alb (3.0), PO4 (4.6), Mg (2.4) Meds Noted: Albuterol, Pulmicort, Fentanyl, Atrovent, Solu Medrol, Versed, Protonix, Zosyn, Vancomycin Additional Notes: No documented skin breakdown. Will continue to monitor with same goal. Nutrition Monitoring and Evaluation: Follow up every Sunday/Sunday.
--- NOTE | 2021-08-09 11:00 | WPDINTPN ---
Progress Note: A&P Assessment and Plan (1) Acute and chronic respiratory failure with hypercapnia: Code(s): J96.22 - Acute and chronic respiratory failure with hypercapnia Status: Acute Assessment and Plan: Acute hypercapnic respiratory failure likely related to COPD exacerbation, possible pneumonia -patient was encephalopathic which could be likely related to hypercapnia -currently on CMV mode of ventilation peep of 5, 40% FiO2. - 8/5 PSV SBT done for more than 1 hour. RSBI, ABGI and Vitals acceptable. Pt awake and following commands. Will extubate and monitor. NPO for now. Bipap PRN and nightly -continue bronchodilators -continue Pulmicort (2) COPD exacerbation: Code(s): J44.1 - Chronic obstructive pulmonary disease with (acute) exacerbation Status: Acute Assessment and Plan: Significant hypercapnia on ABGs, failed BiPAP requiring intubation and mechanical ventilation -continue steroids but decrease dose -continue antibiotics, bronchodilators (3) Shock: Code(s): R57.9 - Shock, unspecified Status: Acute Assessment and Plan: RESOLVED, OFF LEVOPHED Shock could be related to sepsis, positive-pressure ventilation, hypovolemia -patient has been adequately fluid resuscitated and off IV fluids -lactic acid is 0.5 -will continue maintenance IV fluids -patient on Levophed, will target mean arterial pressures > 65 mmHg for adequate end organ perfusion -currently on vancomycin and Zosyn -I will deescalate by discontinue vancomycin 1st -08/07: BLOOD CULTURES NEGATIVE X2, -08/07: SPUTUM CULTURE -no organism seen (4) Encephalopathy: Code(s): G93.40 - Encephalopathy, unspecified Status: Acute Assessment and Plan: Encephalopathy likely related to severe hypercapnia with a pCO2 level of 170 Improved (5) DVT prophylaxis: Code(s): Z29.9 - Encounter for prophylactic measures, unspecified Status: Acute Assessment and Plan: DVT prophylaxis: Lovenox Stress ulcer prophylaxis: Protonix (6) Hypertension: Code(s): I10 - Essential (primary) hypertension Status: Acute Assessment and Plan: Resume lisinopril Additional Plan Code status: Full code Critical care time spent: 32 minutes This dictation may have been done utilizing a voice recognition system. Attempts have been made to correct errors. However, there may be uncorrected grammatical, spelling, and recognition errors present. Due to a high probability of clinically significant, life threatening deterioration, the patient required my highest level of preparedness to intervene emergently and I personally spent this critical care time directly and personally managing the patient. This critical care time included obtaining a history; examining the patient; pulse oximetry; ordering and review of studies; arranging urgent treatment with development of a management plan; evaluation of patient's response to treatment; frequent reassessment; and discussions with other providers. It was exclusive of separately billable procedures and treating other patients and teaching time. Please see Assessment and Plan section and the rest of the note for further information on patient assessment and treatment Subjective Date/time seen: 08/09/21 11:00 Overnight events reviewed. Afebrile Continues to be on mechanical ventilation Continues to be on sedation and tube feeds Vitals acceptable Easily arousable despite sedation and follows commands Interval history: Reason for consult: Acute respiratory failure, COPD exacerbation, possible pneumonia Review of Systems Review of Systems: ROS unobtainable: Yes unobtainable due to endotracheal tube Exam Const: General: comfortable and no acute distress HENMT: Other: ETT in place Eyes: Sclera: sclerae normal Pupils: Equal, round and reactive pupils present Neck: Neck: supple Thyroid: abnormal thyroid Resp: Effort & Inspection: normal re
[2021-08-09] MEDS: lisinopriL 20 MG TABLET PO (12:09)
[2021-08-09] MEDS: CLOPIDOGREL BISULFATE 75 MG TABLET PO (12:09)
[2021-08-09] MEDS: ATORVASTATIN 40 MG TABLET PO (12:09)
[2021-08-09] MEDS: ASPIRIN 81 MG ENTERIC TABLET PO (12:09)
[2021-08-09] MEDS: TOPIRAMATE 25 MG TABLET PO (12:09)
[2021-08-09] MEDS: PHENYTOIN SODIUM 100 MG EXTENDED RELEASE CAP PO ×2 (14:30→21:06)
--- NOTE | 2021-08-09 15:47 | PM.IMPN ---
Progress Note: A&P Assessment and Plan (1) Acute and chronic respiratory failure with hypercapnia: Code(s): J96.22 - Acute and chronic respiratory failure with hypercapnia Status: Acute Assessment and Plan: Acute hypercapnic respiratory failure likely related to COPD exacerbation, possible pneumonia -patient was encephalopathic which could be likely related to hypercapnia -currently on CMV mode of ventilation peep of 5, 40% FiO2. -continue bronchodilators -continue Pulmicort Status post extubation 08/09/2021 nasal cannula with BiPAP at night/p.r.n. during daytime was at [facility] setting at home prior to this from his last discharge which did not work out as compared to previous BiPAP settings. He follows with Dr. Gonzalez at pulmonary clinic for his chronic respiratory failure and noninvasive ventilation therapy. Consult Dr. Gonzalez for his BiPAP adjustments (2) COPD exacerbation: Code(s): J44.1 - Chronic obstructive pulmonary disease with (acute) exacerbation Status: Acute Assessment and Plan: Significant hypercapnia on ABGs, failed BiPAP requiring intubation and mechanical ventilation -continue steroids but decrease dose -continue antibiotics, bronchodilators (3) Shock: Code(s): R57.9 - Shock, unspecified Status: Acute Assessment and Plan: RESOLVED, OFF LEVOPHED Shock could be related to sepsis, positive-pressure ventilation, hypovolemia -patient has been adequately fluid resuscitated and off IV fluids -lactic acid is 0.5 On maintenance IV fluids -patient on Levophed, will target mean arterial pressures > 65 mmHg for adequate end organ perfusion -currently on vancomycin and Zosyn -I will deescalate by discontinue vancomycin 1st -08/07: BLOOD CULTURES NEGATIVE X2, -08/07: SPUTUM CULTURE -no organism seen (4) Encephalopathy: Code(s): G93.40 - Encephalopathy, unspecified Status: Acute Assessment and Plan: Encephalopathy likely related to severe hypercapnia with a pCO2 level of 170 Improved (5) DVT prophylaxis: Code(s): Z29.9 - Encounter for prophylactic measures, unspecified Status: Acute Assessment and Plan: DVT prophylaxis: Lovenox Stress ulcer prophylaxis: Protonix (6) Hypertension: Code(s): I10 - Essential (primary) hypertension Status: Acute Assessment and Plan: Resume lisinopril Subjective Date/time seen: 08/09/21 15:47 Interval history: Background: This is a 70-year-old male with past medical history significant for pulmonary hypertension, emphysema/COPD/asthma, chronic hypercarbic respiratory failure, hypo chronic hypoxic respiratory failure, patient is on 3 L of supplemental oxygen at rest and 6 L of oxygen with activity, obstructive sleep apnea on noninvasive home ventilator at nighttime. Patient does had a recent admission and discharge for COPD exacerbation and was discharged home most of the history has been obtained for upon review of medical records and who is at bedside in the emergency room according to her the patient really never did well after discharge she noticed a progressive decline on his mentation and today he was very sleepy on acid were getting ready for bed she walked him to the bathroom and decided to check his oxygen saturation according to the home O2 saturation devise his oxygen saturation was 50% call ambulance and the patient was rushed to the hospital. Preliminary workup was significant for a blood gas with pH of 7.1, a pCO2 of 160 a PO2 of 129 patient was placed on BiPAP but after temporary recovery patient then declined progressively requiring intubation and ventilator support. Patient intubated and accepted by Dr. Fisher to the ICU. 08/09/2021 he was extubated this morning. Remained on oxygen via nasal cannula after that currently back on BiPAP as he is trying to sleep. Discussed with his at bedside. Discussed with the nursing staff Review of Systems Review of Sy
[2021-08-09] MEDS: hydrALAZINE HCL 20 MG/ML VIAL IV PUSH (16:06)
[2021-08-09 18:00] LABS: Alveolar/Arterial O2 Gradient 190.1 mmHg; Base Excess ABG 8.5 mEq/l (+/-2.0); Fractional Inspired Oxygen 50 %; HCO3 ABG 35.6 mEq/l (22.0-26.0); Oxygen Content ABG 14.6 %vol (16.0-22.0); Oxygen Saturation ABG 96.8 % (95.0-100.0); Oxyhemoglobin 95.5 % THb (90.0-100.0); PO2 ABG 94.5 mmHg (80.0-100.0); PO2 FiO2 Ratio Arterial Blood 1.89 %; Total Hemoglobin 10.8 g/dL (12.0-18.0); pH ABG 7.364 (7.350-7.450)
[2021-08-09 18:02] LABS: Device NON-INVASIVE VENT; Modified Allen's Test Pass; PCO2 ABG 63.9 mmHg (35.0-45.0); Site Drawn RIGHT RADIAL
[2021-08-09 18:03] LABS: Non-Invasive Expiratory Pressure 8 CMH2O; Non-Invasive Inspiratory Pressure 16 CMH2O; Non-Invasive Vent Rate 15 /MIN
[2021-08-10] VITALS (21 sets, daily range): BP systolic 117–172; BP diastolic 45–78; PULSE 67–102; RESP 18–75; TEMP 36.4–37.1; O2SAT 93–99
[2021-08-10] MEDS: ALBUTEROL SULFATE NEB 2.5 MG/0.5 ML INH 5 MG INHALATION ×4 (02:10→20:38)
[2021-08-10] MEDS: IPRATROPIUM BR 0.02% INH SOLN 0.5 MG/2.5 ML VIAL INHALATION ×4 (02:11→20:38)
[2021-08-10 04:51] LABS: Basophils Percent Auto 0.2 % (0.2-1.2); Eosinophils Percent Auto 0.1 % (0-4.4); Hematocrit 31.1 % (42.0-52.0); Hemoglobin 9.5 g/dL (14.0-18.0); Immature Granulocyte Absolute 0.09 K/mm3 (0.00-0.031); Immature Granulocyte Percent A 0.9 % (0-0.5); Lymphocytes Absolute Auto 0.42 K/mm3 (0.9-3.2); Lymphocytes Percent Auto 4.3 % (18.3-44.2); Mean Corpuscular HGB Conc 30.5 g/dl (32-36); Mean Corpuscular Hemoglobin 31.3 pg (26-34); Mean Corpuscular Volume 102.3 fl (80-100); Mean Platelet Volume 8.8 fl (7.4-10.4); Monocytes Absolute Auto 0.9 K/mm3 (0.1-0.6); Neutrophils Absolute Auto 8.3 K/mm3 (1.3-6.7); Neutrophils Percent Auto 85.5 % (45.5-73.1); Platelet Count Result 156 k/mm3 (150-375); Red Blood Count 3.04 M/mm3 (4.6-6.20); Red Cell Distribution Width 16.6 % (11.5-14.5); White Blood Count 9.7 K/mm3 (4.5-10.0)
[2021-08-10 05:04] LABS: Base Excess ABG 12.2 mEq/l (+/-2.0); Carboxyhemoglobin 0.4 % THb (0-2.0); Fractional Inspired Oxygen 36 %; HCO3 ABG 39.3 mEq/l (22.0-26.0); Methemoglobin ABG 0.1 %THb (0-1.5); Oxygen Content ABG 13.6 %vol (16.0-22.0); Oxygen Saturation ABG 94.4 % (95.0-100.0); Oxyhemoglobin 92.4 % THb (90.0-100.0); PO2 ABG 75.2 mmHg (80.0-100.0); PO2 FiO2 Ratio Arterial Blood 2.09 %; Reduced Hemoglobin 7.1 %THb (0-5.0); Total Hemoglobin 10.4 g/dL (12.0-18.0); pH ABG 7.388 (7.350-7.450)
[2021-08-10 05:06] LABS: Device NASAL CANNULA; Modified Allen's Test Pass; PCO2 ABG 66.8 mmHg (35.0-45.0); Site Drawn LEFT RADIAL
[2021-08-10 05:20] LABS: Alanine Aminotransferase 19 U/L (4-50); Albumin Level 3.3 g/dL (3.5-5.1); Alkaline Phosphatase 107 U/L (38-126); Aspartate Amino Transferase 28 U/L (17-59); Bilirubin,Total 0.5 mg/dL (0.2-1.3); Blood Urea Nitrogen 28 mg/dL (9-20); Calcium 8.9 mg/dL (8.4-10.2); Carbon Dioxide > 40 mmol/L (22-30); Chloride 96 mmol/L (98-107); Estimated CRCL calculation 65 ml/min; Estimated Glomerular Filt Rate > 60; Glucose 126 mg/dL (65-110); Magnesium 2.2 mg/dL (1.6-2.3); Phosphorus 4.9 mg/dL (2.5-4.5); Potassium 4.4 mmol/L (3.4-5.0); Sodium 139 mmol/L (137-145)
[2021-08-10] MEDS: PHENYTOIN SODIUM 100 MG EXTENDED RELEASE CAP PO ×3 (05:29→20:59)
[2021-08-10] MEDS: CENTRAL LINE FLUSH 10 ML IV PUSH ×4 (05:30→21:06)
--- NOTE | 2021-08-10 05:46 | PC.NURSE ---
Pt weight incorrect. Pt lifted with ceiling lift and bed zeroes-weight still off. Will notify RN caring for pt today.
--- NOTE | 2021-08-10 07:17 | P.CDI_ITS ---
CDI Query Clarification Request 1) -Encephalopathy, unspecified and Encephalopathy likely related to severe hypercapnia has been documented Please further clarify type of encephalopathy: * Metabolic * Toxic * Hypertensive * Hepatic * Other * Unable to determine 2) - Shock could be related to sepsis, positive-pressure ventilation, hypovolemia documented since 08/07 -Possible pneumonia documented Please clarify if sepsis has been ruled in or ruled out or unable to determine. <Sowmya Gore RN - Last Filed: 08/12/21 07:26> sepsis confirmed metabolic encephalopathy <Yudelka Parra MD - Last Filed: 08/12/21 15:54>
[2021-08-10] MEDS: BUDESONIDE RESPULE NEB 0.5 MG/2 ML AMP INHALATION ×2 (08:49→20:39)
[2021-08-10] MEDS: ATORVASTATIN 40 MG TABLET PO (09:48)
[2021-08-10] MEDS: ENOXAPARIN 40 MG/0.4 ML SYRINGE SUB-Q (09:48)
[2021-08-10] MEDS: CLOPIDOGREL BISULFATE 75 MG TABLET PO (09:48)
[2021-08-10] MEDS: ASPIRIN 81 MG ENTERIC TABLET PO (09:48)
[2021-08-10] MEDS: TOPIRAMATE 25 MG TABLET PO (09:48)
[2021-08-10] MEDS: methylPREDNISolone SOD SUCC 125 MG VIAL 60 MG IV PUSH ×2 (09:48→20:57)
[2021-08-10] MEDS: lisinopriL 20 MG TABLET PO (09:48)
[2021-08-10] MEDS: PANTOPRAZOLE SODIUM IV 40 MG VIAL IV PUSH (09:49)
--- NOTE | 2021-08-10 10:08 | WPDINTPN ---
Progress Note: A&P Assessment and Plan (1) Acute and chronic respiratory failure with hypercapnia: Code(s): J96.22 - Acute and chronic respiratory failure with hypercapnia Status: Acute Assessment and Plan: Acute hypercapnic respiratory failure likely related to COPD exacerbation, possible pneumonia 08/09 - 05/12 PSV SBT done for more than 1 hour. RSBI, ABGI and Vitals acceptable. Pt awake and following commands. Patient was extubated - patient has done well and tolerated nasal cannula during the day and wore BiPAP at night - continue Bipap PRN and nightly -continue bronchodilators -continue Pulmicort - discussed with pulmonary (2) COPD exacerbation: Code(s): J44.1 - Chronic obstructive pulmonary disease with (acute) exacerbation Status: Acute Assessment and Plan: Significant hypercapnia on ABGs, failed BiPAP requiring intubation and mechanical ventilation -continue steroids -continue antibiotics, bronchodilators (3) Shock: Code(s): R57.9 - Shock, unspecified Status: Acute Assessment and Plan: RESOLVED, OFF LEVOPHED Shock could be related to sepsis, positive-pressure ventilation, hypovolemia -patient has been adequately fluid resuscitated and off IV fluids -lactic acid is 0.5 -will continue maintenance IV fluids -patient on Levophed, will target mean arterial pressures > 65 mmHg for adequate end organ perfusion -currently on Zosyn - 08/09 vancomycin was discontinued -08/07: BLOOD CULTURES NEGATIVE X2, -08/07: SPUTUM CULTURE -no organism seen (4) Encephalopathy: Code(s): G93.40 - Encephalopathy, unspecified Status: Acute Assessment and Plan: Encephalopathy likely related to severe hypercapnia with a pCO2 level of 170 resolved (5) DVT prophylaxis: Code(s): Z29.9 - Encounter for prophylactic measures, unspecified Status: Acute Assessment and Plan: DVT prophylaxis: Lovenox Stress ulcer prophylaxis: Protonix (6) Hypertension: Code(s): I10 - Essential (primary) hypertension Status: Acute Assessment and Plan: Resume lisinopril Additional Plan Code status: Full code advance p.o. diet DC Medel catheter PT OT consult, up in chair, incentive spirometry Transfer to step-down unit today Subjective Date/time seen: 08/10/21 10:08 patient was extubated yesterday and has done well since then. Patient was saturating well on 4 L nasal cannula which is his home oxygen need. He wore BiPAP at night. ABGs this morning were acceptable and he has stable vital signs otherwise. He states he feels much better. Denies feeling short of breath. Review system is positive for dry cough which is chronic patient also reports pain in his hip which is also chronic. he is requesting that his Medel catheter be removed and he would like to eat food this morning. All other systems were reviewed and were negative. Interval history: Reason for consult: Acute respiratory failure, COPD exacerbation, possible pneumonia Review of Systems Review of Systems: All systems reviewed & are unremarkable except as noted in HPI and below ( Subjective) Exam Narrative: General: Pt is alert awake and in NAD Lungs/Chest: Trachea central coarse BS B/L, No crackles, occasional wheezing. Cardiac: RRR. Normal S1 S2. No murmurs Circulation: Pedal pulses are intact and symmetrical. Abdomen: Normal bowel sounds. obese. Soft. NT. ND. Extremities: No clubbing, cyanosis or edema. Warm : Medel in place Neurologic: Follows commands. Moves all 4 extremities PERRL alert oriented x3 Skin: No Rash Objective Data Vital Signs Vital Signs: Vital Signs - 24 hr 08/09/21 10:50 08/09/21 12:00 08/09/21 14:00 Temperature 36.6 C Pulse Rate 93 80 Respiratory Rate 20 20 Blood Pressure 158/68 H 134/64 Pulse Oximetry 90 91 91 08/09/21 14:49 08/09/21 14:57 08/09/21 15:22 Temperature Pulse Rate 76 67 68 Respiratory Rate 21 H 19 2
--- NOTE | 2021-08-10 10:30 | PM.CNPUL ---
Assessment and Plan Assessment and plan (1) Acute and chronic respiratory failure with hypercapnia: Code(s): J96.22 - Acute and chronic respiratory failure with hypercapnia Status: Acute Assessment and Plan: 70-year-old man with COPD chronic hypoxemic hypercapnic respiratory failure related to COPD and/or sleep disordered breathing, multiple hospitalizations for respiratory failure, presented again with acute on chronic hypercarbic respiratory failure requiring treatment with mechanical ventilation in the intensive care unit. Likely cause of the new episode of acute on chronic hypercapnic respiratory failure is the patients inability to tolerate the new settings of the NIV consisting of relatively high minute ventilation and high pressures with resultant air leak. There is no evidence of COPD/ Bronchiectasis exacerbation as he has no wheezing on physical exam, and has been no change in his sputum color or production. The patient seems to be tolerating the current BiPAP settings 16/8 well with normalization of his pH on arterial blood gases. At this point, we will continue with current BIPAP settings at night and p.r.n. during the day, monitor arterial blood gases, and overnight oximetry. I would discontinue IV steroids, continue with the nebulized short-acting bronchodilators q.i.d. while awake. (2) Obstructive sleep apnea: Code(s): G47.33 - Obstructive sleep apnea (adult) (pediatric) Status: Acute (3) Secondary pulmonary hypertension: Status: Acute (4) Bronchiectasis: Qualifiers: Bronchiectasis type: uncomplicated Qualified Code(s): J47.9 - Bronchiectasis, uncomplicated Code(s): J47.9 - Bronchiectasis, uncomplicated Status: Acute Assessment and Plan: Cause of bronchiectasis unclear. The patient will need further workup to exclude ABPA, possible underlying autoimmune disease such as rheumatoid arthritis, atypical mycobacterial disease. Unlikely to have a forme fruste of cystic fibrosis. in the past he grew Pseudomonas in his sputum. Most recent sputum culture showed no organisms. Will send sputum for atypical mycobacterial culture. History of Present Illness History of Present Illness Consult date: 08/10/21 Chief complaint: Hypercapnic Respiratory Failure Narrative: This 70-year-old man was brought into the hospital with acute mental status changes. The patient has multiple medical problems including COPD bronchiectasis chronic hypoxemic hypercapnic respiratory failure related to COPD and or sleep disorder breathing, on home noninvasive ventilatory support for chronic hypercapnic respiratory failure, with frequent hospitalizations related to COPD exacerbation or or to his poorly controlled sleep disorder breathing. The patient was hospitalized approximately 3 weeks ago with acute on chronic hypercapnic respiratory failure. He was discharged home after he was treated for COPD exacerbation. The patient was switched from Trelegy AVAPS to Astral IVAPS and a DME respiratory therapist went to his home to set him up on the new noninvasive ventilator. The settings on the IVAPS were as follows: rate of 24, tidal volume 550, EPAP minimum 5, EPAP maximum 16, IPAP minimum 10, IPAP maximum 25, 5 L oxygen bleed in. the patient stated that he stopped using the new a ventilator because of increased air leak around his face. Of note the last sleep study done in 2018 suggested BiPAP . The patient became progressively somnolent and short of breath. He was brought into the emergency room where he was found to have acute on chronic hypercapnic respiratory failure with a pH of 7.1 and pCO2 169. The patient was transferred to the intensive care unit where he was initially placed on BiPAP support. Despite treatment with BiPAP support the patient's clinical condition did not improve and the patient was then intubated and placed on mechanical ventilation. He was extubated yesterday to BiPAP
[2021-08-10] MEDS: hydrALAZINE HCL 20 MG/ML VIAL IV PUSH (12:18)
--- NOTE | 2021-08-10 12:54 | PCDIET ---
Nutrition Follow-Up Complete: Nutrition Diagnosis: Inadequate oral intake related to oral intubation as evidenced by NPO status. Nutrition Goal: Patient to meet estimated nutritional needs. Goal in progress. Patient extubated and placed on heart healthy diet. Eating breakfast at time of visit. Reports decreased appetite, but does not feel he needs nutritional supplements at this time. Will follow closely. Last recorded weight is 62.8 kg which is significantly down from previous weights. Recommend re-weighing to ensure accuracy. Bowel Motility: No documented BM. If medically appropriate, could consider medication to promote BM. Labs Reviewed: RBC (3.04), Hgb (9.5), Hct (31.1), Glu (126), BUN (28), Alb (3.3), PO4 (4.9) Meds Noted: Albuterol, Lipitor, Pulmicort, Atrovent, Prinivil, Solu Medrol, Protonix, Dilantin, Zosyn Additional Notes: No documented skin breakdown. Will continue to monitor with same goal. Nutrition Monitoring and Evaluation: Follow up in 3 days.
[2021-08-11] VITALS (28 sets, daily range): BP systolic 146–157; BP diastolic 52–70; PULSE 67–107; RESP 16–24; TEMP 36.4–37.1; O2SAT 92–97
[2021-08-11] MEDS: IPRATROPIUM BR 0.02% INH SOLN 0.5 MG/2.5 ML VIAL INHALATION ×4 (02:40→20:00)
[2021-08-11] MEDS: ALBUTEROL SULFATE NEB 2.5 MG/0.5 ML INH 5 MG INHALATION ×4 (02:40→20:00)
--- NOTE | 2021-08-11 02:40 | PC.NURSE ---
This patient, Quentin Zavaleta, was transferred to [facility] on 08/11/21 at 0240. Personal belongings sent with patient. Report given to Monica. Appropriate documentation sent with patient.
--- NOTE | 2021-08-11 02:50 | PC.NURSE ---
This patient, Quentin Zavaleta, was received from ICU-6 on 08/11/21 at 0230. Patient/family oriented to unit policies and routines
[2021-08-11] MEDS: PHENYTOIN SODIUM 100 MG EXTENDED RELEASE CAP PO ×3 (05:21→21:52)
[2021-08-11] MEDS: CENTRAL LINE FLUSH 10 ML IV PUSH ×4 (05:22→21:52)
[2021-08-11 05:35] LABS: Basophils Percent Auto 0.5 % (0.2-1.2); Eosinophils Percent Auto 0.5 % (0-4.4); Hematocrit 34.8 % (42.0-52.0); Hemoglobin 10.3 g/dL (14.0-18.0); Immature Granulocyte Absolute 0.14 K/mm3 (0.00-0.031); Immature Granulocyte Percent A 1.7 % (0-0.5); Lymphocytes Absolute Auto 0.52 K/mm3 (0.9-3.2); Lymphocytes Percent Auto 6.3 % (18.3-44.2); Mean Corpuscular HGB Conc 29.6 g/dl (32-36); Mean Corpuscular Hemoglobin 30.4 pg (26-34); Mean Corpuscular Volume 102.7 fl (80-100); Mean Platelet Volume 9.2 fl (7.4-10.4); Monocytes Absolute Auto 0.8 K/mm3 (0.1-0.6); Neutrophils Absolute Auto 6.8 K/mm3 (1.3-6.7); Platelet Count Result 185 k/mm3 (150-375); Red Blood Count 3.39 M/mm3 (4.6-6.20); White Blood Count 8.3 K/mm3 (4.5-10.0)
[2021-08-11 06:23] LABS: Alanine Aminotransferase 22 U/L (4-50); Albumin Level 3.4 g/dL (3.5-5.1); Alkaline Phosphatase 119 U/L (38-126); Aspartate Amino Transferase 31 U/L (17-59); Bilirubin,Total 0.5 mg/dL (0.2-1.3); Blood Urea Nitrogen 28 mg/dL (9-20); Calcium 9.1 mg/dL (8.4-10.2); Carbon Dioxide > 40 mmol/L (22-30); Chloride 96 mmol/L (98-107); Estimated CRCL calculation 69 ml/min; Estimated Glomerular Filt Rate > 60; Glucose 174 mg/dL (65-110); Magnesium 2.2 mg/dL (1.6-2.3); Phosphorus 4.3 mg/dL (2.5-4.5); Potassium 4.2 mmol/L (3.4-5.0); Sodium 141 mmol/L (137-145)
[2021-08-11] MEDS: BUDESONIDE RESPULE NEB 0.5 MG/2 ML AMP INHALATION ×2 (08:50→20:00)
[2021-08-11] MEDS: TOPIRAMATE 25 MG TABLET PO (09:23)
[2021-08-11] MEDS: CLOPIDOGREL BISULFATE 75 MG TABLET PO (09:24)
[2021-08-11] MEDS: ASPIRIN 81 MG ENTERIC TABLET PO (09:24)
[2021-08-11] MEDS: ATORVASTATIN 40 MG TABLET PO (09:24)
[2021-08-11] MEDS: lisinopriL 20 MG TABLET PO (09:24)
[2021-08-11] MEDS: ENOXAPARIN 40 MG/0.4 ML SYRINGE SUB-Q (09:25)
[2021-08-11] MEDS: PANTOPRAZOLE SODIUM IV 40 MG VIAL IV PUSH (09:26)
[2021-08-11] MEDS: methylPREDNISolone SOD SUCC 125 MG VIAL 60 MG IV PUSH (09:26)
--- NOTE | 2021-08-11 10:40 | PM.PNPUL ---
Progress Note: A&P Assessment and Plan (1) Acute on chronic respiratory failure with hypoxia and hypercapnia: Code(s): J96.21 - Acute and chronic respiratory failure with hypoxia; J96.22 - Acute and chronic respiratory failure with hypercapnia Status: Acute Assessment and Plan: 70-year-old man with multiple medical problems including obesity sleep apnea, COPD, severe bronchiectasis chronically on Zithromax, history of noncompliance with noninvasive ventilatory support at home presented with episode of acute on chronic hypercapnic respiratory failure. Patient has improved following intubation and mechanical ventilation in the ICU followed by generic BiPAP 16/8 at night and p.r.n. during the day. Respiratory status has been stable for approximately 48 hours. A sputum culture showing Pseudomonas. Susceptibility testing pending. Plan as follows. Check blood gases today. Will continue with the same BiPAP settings and measure overnight oximetry. Continue with current antibiotic until susceptibility testing for Pseudomonas is out. Will require treatment for Pseudomonas in sputum based on susceptibility testing. IV steroids were discontinued and the patient was placed on prednisone 30 mg p.o. daily. Will continue with the nebulized short-acting bronchodilators. Patient will be screened for diseases causing severe bronchiectasis such as acquired immune deficiency, alpha-1 antitrypsin deficiency, autoimmune diseases like rheumatoid arthritis, and ABPA. (2) COPD (chronic obstructive pulmonary disease): Qualifiers: COPD type: COPD with acute exacerbation Qualified Code(s): J44.1 - Chronic obstructive pulmonary disease with (acute) exacerbation Code(s): J44.9 - Chronic obstructive pulmonary disease, unspecified Status: Acute (3) Bronchiectasis: Qualifiers: Bronchiectasis type: uncomplicated Qualified Code(s): J47.9 - Bronchiectasis, uncomplicated Code(s): J47.9 - Bronchiectasis, uncomplicated Status: Acute (4) Obstructive sleep apnea: Code(s): G47.33 - Obstructive sleep apnea (adult) (pediatric) Status: Acute (5) Secondary pulmonary hypertension: Status: Acute Subjective Date/time seen: 08/11/21 10:40 Patient was transferred to regular med/surg [facility]. he has no new respiratory symptoms. Used BiPAP again last night. He stated he slept well on same BiPAP settings. Currently on supplemental oxygen via nasal cannula sitting up in bed. Review of Systems Review of Systems: All systems reviewed & are unremarkable except as noted in HPI and below (H & p and bellow.) Exam Narrative: GENERAL APPEARANCE: Well developed, well nourished, alert and cooperative, and appears to be in mild respiratory distress while breathing oxygen at 3 liters/minute SKIN: Inspection of the skin reveals no rashes, ulcerations or petechiae. HEENT: Sclerae anicteric and conjunctivae pink and moist. Extraocular movements were intact and pupils were equal, round, and reactive to light. NECK: Supple. There was no thyroid enlargement, and no tenderness, or masses were felt. CHEST: Increased AP diameter and normal contour without any kyphoscoliosis. LUNGS: Auscultation of the lungs revealed distant breath sounds with rare crackles at bases. CARDIAC: There was a regular rate and rhythm without any murmurs, gallops, rubs. ABDOMEN: Soft and nontender with normal bowel sounds. LYMPH NODES: No lymphadenopathy was appreciated in the neck. EXTREMITIES: No cyanosis, clubbing; trace edema. NEUROLOGIC: Alert and oriented x 3. Normal affect. Objective Data Vital Signs Vital Signs: Vital Signs - 24 hr 08/10/21 12:00 08/10/21 13:15 08/10/21 13:25 Temperature 36.9 C Pulse Rate 79 92 92 Respiratory Rate 24 H 25 H 27 H Blood Pressure 172/78 H Pulse Oximetry 94 08/10/21 14:00 08/10/21 16:00 08/10/21 18:00 Temperature 36.4 C L Pulse Rate 93 87 94 Respiratory Rate 18 Blood P
[2021-08-11 11:14] LABS: Base Excess ABG 10.7 mEq/l (+/-2.0); Fractional Inspired Oxygen 36 %; HCO3 ABG 38.4 mEq/l (22.0-26.0); Oxygen Content ABG 14.6 %vol (16.0-22.0); Oxygen Saturation ABG 92.4 % (95.0-100.0); Oxyhemoglobin 91.6 % THb (90.0-100.0); PO2 ABG 68.5 mmHg (80.0-100.0); Total Hemoglobin 11.3 g/dL (12.0-18.0); pH ABG 7.363 (7.350-7.450)
--- NOTE | 2021-08-11 11:15 | PM.IMPN ---
Progress Note: A&P Assessment and Plan (1) Acute and chronic respiratory failure with hypercapnia: Code(s): J96.22 - Acute and chronic respiratory failure with hypercapnia Status: Acute Assessment and Plan: Acute hypercapnic respiratory failure likely related to COPD exacerbation, possible pneumonia 08/09 - 05/12 PSV SBT done for more than 1 hour. RSBI, ABGI and Vitals acceptable. Pt awake and following commands. Patient was extubated - patient has done well and tolerated nasal cannula during the day and wore BiPAP at night - continue Bipap PRN and nightly -continue bronchodilators -continue Pulmicort - discussed with pulmonary (2) COPD exacerbation: Code(s): J44.1 - Chronic obstructive pulmonary disease with (acute) exacerbation Status: Acute Assessment and Plan: Significant hypercapnia on ABGs, failed BiPAP requiring intubation and mechanical ventilation -continue steroids -continue antibiotics, bronchodilators (3) Shock: Code(s): R57.9 - Shock, unspecified Status: Acute Assessment and Plan: RESOLVED, OFF LEVOPHED Shock could be related to sepsis, positive-pressure ventilation, hypovolemia -patient has been adequately fluid resuscitated and off IV fluids -lactic acid is 0.5 -will continue maintenance IV fluids -patient on Levophed, will target mean arterial pressures > 65 mmHg for adequate end organ perfusion -currently on Zosyn - 08/09 vancomycin was discontinued -08/07: BLOOD CULTURES NEGATIVE X2, -08/07: SPUTUM CULTURE -no organism seen (4) Encephalopathy: Code(s): G93.40 - Encephalopathy, unspecified Status: Acute Assessment and Plan: Encephalopathy likely related to severe hypercapnia with a pCO2 level of 170 resolved (5) Hypertension: Code(s): I10 - Essential (primary) hypertension Status: Acute Assessment and Plan: Resume lisinopril (6) Pseudomonas pneumonia: Code(s): J15.1 - Pneumonia due to Pseudomonas Status: Acute (7) Tobacco abuse: Code(s): Z72.0 - Tobacco use Status: Acute (8) Seizure disorder: Code(s): G40.909 - Epilepsy, unspecified, not intractable, without status epilepticus Status: Acute (9) Obstructive sleep apnea: Code(s): G47.33 - Obstructive sleep apnea (adult) (pediatric) Status: Acute Additional Plan Code status: Full code advance p.o. diet DC Medel catheter PT OT consult, up in chair, incentive spirometry Transfer to step-down unit today 08/11/21 BiPAP settings and measure overnight oximetry. Continue with current antibiotic until susceptibility testing for Pseudomonas resulted IV steroids were discontinued and the patient was placed on prednisone 30 mg p.o. daily. cont nebulized short-acting bronchodilators. pulm screening for diseases causing severe bronchiectasis such as acquired immune deficiency, alpha-1 antitrypsin deficiency, autoimmune diseases like rheumatoid arthritis, and ABPA. Respiratory status has been stable for approximately 48 hours. cont current care dc planning when cleared by pulm to home Subjective Date/time seen: 08/11/21 11:15 pt states that he is feelign better today would like to know when he can go home pt advised in a couple more days most likely Exam Narrative: Const: Alert and oriented x3 comfortable and no acute distress sitting up in chair HENMT: NCAT EOMI Neck: Neck: supple nontender Resp: Bilateral equal air entry, on full support Cardio: Rate: regular rate Rhythm: regular rhythm GI: Soft obese Skin: normal color and no rashes or lesions noted Neuro: Alert and oriented x3 no focal neurological deficits Extrem: No edema cyanosis or clubbing Objective Data Vital Signs Vital Signs: Vital Signs - 24 hr 08/10/21 12:00 08/10/21 13:15 08/10/21 13:25 Temperature 98.4 F Pulse Rate 79 92 92 Respiratory Rate 24 H 25 H 27 H Blood Pressure 172/78 H Pulse Oximetry
[2021-08-11 11:16] LABS: Device NASAL CANNULA; Modified Allen's Test Pass; Site Drawn LEFT RADIAL
[2021-08-11 11:17] LABS: PCO2 ABG 69.1 mmHg (35.0-45.0)
--- NOTE | 2021-08-11 11:32 | PCOTNOTE ---
Attempted to see Patient for A.M. treatment session at this time. Patient was unavailable due to being with Physical Therapy. Will try back at a later time.
[2021-08-11 11:51] LABS: Immunoglobulin A 262 mg/dL (70-400); Immunoglobulin G 1506 mg/dL (700-1600); Immunoglobulin M 32 mg/dL (40-230); Rheumatoid Factor < 8.6 IU/ML (<12)
--- NOTE | 2021-08-11 12:04 | PCDIET ---
Nutrition Follow-Up Complete: Nutrition Diagnosis: Inadequate oral intake related to oral intubation as evidenced by NPO status. Nutrition Goal: Patient to meet estimated nutritional needs. Goal not met. Patient consuming 25-50% of meals on heart healthy diet. Recommend adding Ensure Compact (220kcal, 9g protein, 32g carb) twice per day. Last recorded weight is 112.8 kg which is increased from previous weights, despite -I/O. Will monitor. Bowel Motility: +BM x 1 today. Labs Reviewed: RBC (3.39), Hgb (10.3), Hct (34.8), Glu (174), Alb (3.4) Meds Noted: Albuterol, Lipitor, Pulmicort, Atrovent, Prinivil, Protonix, Dilantin, Zosyn, Prednisone Additional Notes: No documented skin breakdown. Will continue to monitor with same goal. Nutrition Monitoring and Evaluation: Follow up in 5 days.
--- NOTE | 2021-08-11 13:28 | PC.NURSE ---
On 08/11/21, the student, [Mónica Marshall], provided care and completed [facility] documentation on this patient. I have reviewed the student's documentation and agree with the findings.
[2021-08-12] VITALS (22 sets, daily range): BP systolic 126–166; BP diastolic 52–69; PULSE 64–101; RESP 14–29; TEMP 36.1–37; O2SAT 92–99
[2021-08-12] MEDS: PHENYTOIN SODIUM 100 MG EXTENDED RELEASE CAP PO ×3 (05:48→21:24)
[2021-08-12] MEDS: CENTRAL LINE FLUSH 20 ML IV PUSH (05:49)
[2021-08-12] MEDS: CENTRAL LINE FLUSH 10 ML IV PUSH ×3 (05:49→21:24)
[2021-08-12 06:10] LABS: Basophils Absolute Auto 0.1 K/mm3 (0.0-0.1); Basophils Percent Auto 0.8 % (0.2-1.2); Eosinophils Absolute Auto 0.3 K/mm3 (0-0.3); Eosinophils Percent Auto 4.5 % (0-4.4); Hemoglobin 9.9 g/dL (14.0-18.0); Immature Granulocyte Absolute 0.15 K/mm3 (0.00-0.031); Lymphocytes Absolute Auto 0.65 K/mm3 (0.9-3.2); Lymphocytes Percent Auto 8.9 % (18.3-44.2); Mean Corpuscular Hemoglobin 30.6 pg (26-34); Mean Corpuscular Volume 101.9 fl (80-100); Mean Platelet Volume 8.9 fl (7.4-10.4); Monocytes Absolute Auto 0.9 K/mm3 (0.1-0.6); Monocytes Percent Auto 11.6 % (2.6-8.5); Neutrophils Absolute Auto 5.3 K/mm3 (1.3-6.7); Neutrophils Percent Auto 72.2 % (45.5-73.1); Platelet Count Result 194 k/mm3 (150-375); Red Blood Count 3.24 M/mm3 (4.6-6.20); Red Cell Distribution Width 16.9 % (11.5-14.5); White Blood Count 7.3 K/mm3 (4.5-10.0)
[2021-08-12 06:18] LABS: Alanine Aminotransferase 24 U/L (4-50); Albumin Level 3.3 g/dL (3.5-5.1); Alkaline Phosphatase 104 U/L (38-126); Aspartate Amino Transferase 35 U/L (17-59); Bilirubin,Total 0.5 mg/dL (0.2-1.3); Blood Urea Nitrogen 21 mg/dL (9-20); Calcium 9.1 mg/dL (8.4-10.2); Carbon Dioxide > 40 mmol/L (22-30); Chloride 97 mmol/L (98-107); Estimated CRCL calculation 69 ml/min; Estimated Glomerular Filt Rate > 60; Glucose 100 mg/dL (65-110); Phosphorus 4.2 mg/dL (2.5-4.5); Potassium 4.1 mmol/L (3.4-5.0); Sodium 140 mmol/L (137-145)
[2021-08-12] MEDS: ASPIRIN 81 MG ENTERIC TABLET PO (08:37)
[2021-08-12] MEDS: PANTOPRAZOLE SODIUM IV 40 MG VIAL IV PUSH (08:38)
[2021-08-12] MEDS: ATORVASTATIN 40 MG TABLET PO (08:38)
[2021-08-12] MEDS: lisinopriL 20 MG TABLET PO (08:38)
[2021-08-12] MEDS: predniSONE 20 MG, predniSONE 10 MG 30 MG PO (08:38)
[2021-08-12] MEDS: ENOXAPARIN 40 MG/0.4 ML SYRINGE SUB-Q (08:38)
[2021-08-12] MEDS: CLOPIDOGREL BISULFATE 75 MG TABLET PO (08:38)
[2021-08-12] MEDS: TOPIRAMATE 25 MG TABLET PO (08:38)
[2021-08-12] MEDS: ALBUTEROL SULFATE NEB 2.5 MG/0.5 ML INH 5 MG INHALATION ×3 (08:46→20:39)
[2021-08-12] MEDS: BUDESONIDE RESPULE NEB 0.5 MG/2 ML AMP INHALATION ×2 (08:46→20:39)
[2021-08-12] MEDS: IPRATROPIUM BR 0.02% INH SOLN 0.5 MG/2.5 ML VIAL INHALATION ×3 (08:47→20:39)
--- NOTE | 2021-08-12 11:56 | PM.PNPUL ---
Progress Note: A&P Assessment and Plan (1) Acute on chronic respiratory failure with hypoxia and hypercapnia: Code(s): J96.21 - Acute and chronic respiratory failure with hypoxia; J96.22 - Acute and chronic respiratory failure with hypercapnia Status: Acute Assessment and Plan: 70-year-old man with multiple medical problems including obesity sleep apnea, COPD, severe bronchiectasis chronically on Zithromax, history of noncompliance with noninvasive ventilatory support at home presented with episode of acute on chronic hypercapnic respiratory failure. Patient has improved following intubation and mechanical ventilation in the ICU followed by generic BiPAP 16/8 at night and p.r.n. during the day. Respiratory status has been stable for approximately 72 hours. A sputum culture showing Pseudomonas. Susceptibility testing still pending. With overnight oximetry on BiPAP support 16/8 and FiO2 of 40% showed average saturation 95% and lowest desaturation at 77%. The duration of saturations less than 88% was 3 minutes only or 1%. Overall this is an adequate oxygenation with no clinically significant desaturation on current BiPAP settings and FiO2 40%. Plan as follows: Will continue with the same BiPAP settings. Continue with current antibiotic until susceptibility testing for Pseudomonas is out. Will require treatment for Pseudomonas in sputum based on susceptibility testing. IV steroids were discontinued and the patient was placed on prednisone 30 mg p.o. daily. Will continue with the nebulized short-acting bronchodilators. Patient will be screened for diseases causing severe bronchiectasis such as acquired immune deficiency, alpha-1 antitrypsin deficiency, autoimmune diseases like rheumatoid arthritis, and ABPA. (2) COPD (chronic obstructive pulmonary disease): Qualifiers: COPD type: COPD with acute exacerbation Qualified Code(s): J44.1 - Chronic obstructive pulmonary disease with (acute) exacerbation Code(s): J44.9 - Chronic obstructive pulmonary disease, unspecified Status: Acute (3) Bronchiectasis: Qualifiers: Bronchiectasis type: uncomplicated Qualified Code(s): J47.9 - Bronchiectasis, uncomplicated Code(s): J47.9 - Bronchiectasis, uncomplicated Status: Acute (4) Obstructive sleep apnea: Code(s): G47.33 - Obstructive sleep apnea (adult) (pediatric) Status: Acute (5) Secondary pulmonary hypertension: Status: Acute Subjective Date/time seen: 08/12/21 11:56 patient has no new respiratory symptoms. He slept well last night while on BiPAP support. He underwent overnight pulse oximetry on current supplemental oxygen and BiPAP support 23/05. He has been afebrile. His willing to go home. Still coughing phlegm as before. He has no fever or change in his shortness of breath. Review of Systems Review of Systems: All systems reviewed & are unremarkable except as noted in HPI and below (H & p and bellow.) Exam Narrative: GENERAL APPEARANCE: Well developed, well nourished, alert and cooperative, and appears to be in mild respiratory distress while breathing oxygen at 3 liters/minute SKIN: Inspection of the skin reveals no rashes, ulcerations or petechiae. HEENT: Sclerae anicteric and conjunctivae pink and moist. Extraocular movements were intact and pupils were equal, round, and reactive to light. NECK: Supple. There was no thyroid enlargement, and no tenderness, or masses were felt. CHEST: Increased AP diameter and normal contour without any kyphoscoliosis. LUNGS: Auscultation of the lungs revealed distant breath sounds with rare crackles at bases. CARDIAC: There was a regular rate and rhythm without any murmurs, gallops, rubs. ABDOMEN: Soft and nontender with normal bowel sounds. LYMPH NODES: No lymphadenopathy was appreciated in the neck. EXTREMITIES: No cyanosis, clubbing; trace edema. NEUROLOGIC: Alert and oriented x 3. Normal affect. Object
--- NOTE | 2021-08-12 15:37 | PM.IMPN ---
Progress Note: A&P Assessment and Plan (1) Acute and chronic respiratory failure with hypercapnia: Code(s): J96.22 - Acute and chronic respiratory failure with hypercapnia Status: Acute Assessment and Plan: Acute hypercapnic respiratory failure likely related to COPD exacerbation, possible pneumonia 08/09 - 05/12 PSV SBT done for more than 1 hour. RSBI, ABGI and Vitals acceptable. Pt awake and following commands. Patient was extubated - patient has done well and tolerated nasal cannula during the day and wore BiPAP at night - continue Bipap PRN and nightly -continue bronchodilators -continue Pulmicort - discussed with pulmonary (2) COPD exacerbation: Code(s): J44.1 - Chronic obstructive pulmonary disease with (acute) exacerbation Status: Acute Assessment and Plan: Significant hypercapnia on ABGs, failed BiPAP requiring intubation and mechanical ventilation -continue steroids -continue antibiotics, bronchodilators (3) Shock: Code(s): R57.9 - Shock, unspecified Status: Acute Assessment and Plan: RESOLVED, OFF LEVOPHED Shock could be related to sepsis, positive-pressure ventilation, hypovolemia -patient has been adequately fluid resuscitated and off IV fluids -lactic acid is 0.5 -will continue maintenance IV fluids -patient on Levophed, will target mean arterial pressures > 65 mmHg for adequate end organ perfusion -currently on Zosyn - 08/09 vancomycin was discontinued -08/07: BLOOD CULTURES NEGATIVE X2, -08/07: SPUTUM CULTURE -no organism seen (4) Encephalopathy: Code(s): G93.40 - Encephalopathy, unspecified Status: Acute Assessment and Plan: Encephalopathy likely related to severe hypercapnia with a pCO2 level of 170 resolved (5) Hypertension: Code(s): I10 - Essential (primary) hypertension Status: Acute Assessment and Plan: Resume lisinopril (6) Pseudomonas pneumonia: Code(s): J15.1 - Pneumonia due to Pseudomonas Status: Acute (7) Tobacco abuse: Code(s): Z72.0 - Tobacco use Status: Acute (8) Seizure disorder: Code(s): G40.909 - Epilepsy, unspecified, not intractable, without status epilepticus Status: Acute (9) Obstructive sleep apnea: Code(s): G47.33 - Obstructive sleep apnea (adult) (pediatric) Status: Acute Additional Plan Code status: Full code advance p.o. diet DC Medel catheter PT OT consult, up in chair, incentive spirometry Transfer to step-down unit today 08/11/21 BiPAP settings and measure overnight oximetry. Continue with current antibiotic until susceptibility testing for Pseudomonas resulted IV steroids were discontinued and the patient was placed on prednisone 30 mg p.o. daily. cont nebulized short-acting bronchodilators. pulm screening for diseases causing severe bronchiectasis such as acquired immune deficiency, alpha-1 antitrypsin deficiency, autoimmune diseases like rheumatoid arthritis, and ABPA. Respiratory status has been stable for approximately 48 hours. cont current care dc planning when cleared by pulm to home 08/12/21 pending sensitivities for pseudomas in sputum previously 01/2021 Ceftazidime S Cefepime S Ciprofloxacin S Levofloxacin S Gentamycin S Imipenem S Piperacillin/Tazobactam S Tobramycin S cont zosyn for now follow cultures chronic lung disesase currently at baseline o2 requirements chronic LE swelling on lasix at home dc planning when cleared by pulm home w C Subjective Date/time seen: 08/12/21 15:37 doing ok feels back to baseline wants to go home. pt advised i will speak w pulmonoligist for clearance prior to dc
[2021-08-13] VITALS (27 sets, daily range): BP systolic 124–154; BP diastolic 52–74; PULSE 59–96; RESP 18–24; TEMP 36.2–36.9; O2SAT 63–99
[2021-08-13] MEDS: ALBUTEROL SULFATE NEB 2.5 MG/0.5 ML INH 5 MG INHALATION ×4 (02:09→21:18)
[2021-08-13] MEDS: IPRATROPIUM BR 0.02% INH SOLN 0.5 MG/2.5 ML VIAL INHALATION ×4 (02:09→21:18)
[2021-08-13 05:07] LABS: Basophils Percent Auto 0.5 % (0.2-1.2); Eosinophils Absolute Auto 0.4 K/mm3 (0-0.3); Eosinophils Percent Auto 6.2 % (0-4.4); Hematocrit 30.5 % (42.0-52.0); Hemoglobin 9.2 g/dL (14.0-18.0); Immature Granulocyte Absolute 0.12 K/mm3 (0.00-0.031); Immature Granulocyte Percent A 1.9 % (0-0.5); Lymphocytes Absolute Auto 0.68 K/mm3 (0.9-3.2); Lymphocytes Percent Auto 10.7 % (18.3-44.2); Mean Corpuscular HGB Conc 30.2 g/dl (32-36); Mean Corpuscular Hemoglobin 30.8 pg (26-34); Mean Platelet Volume 8.9 fl (7.4-10.4); Monocytes Absolute Auto 0.7 K/mm3 (0.1-0.6); Monocytes Percent Auto 11.4 % (2.6-8.5); Neutrophils Absolute Auto 4.4 K/mm3 (1.3-6.7); Neutrophils Percent Auto 69.3 % (45.5-73.1); Platelet Count Result 178 k/mm3 (150-375); Red Blood Count 2.99 M/mm3 (4.6-6.20); Red Cell Distribution Width 16.6 % (11.5-14.5); White Blood Count 6.3 K/mm3 (4.5-10.0)
[2021-08-13] MEDS: PHENYTOIN SODIUM 100 MG EXTENDED RELEASE CAP PO ×3 (05:20→21:34)
[2021-08-13] MEDS: CENTRAL LINE FLUSH 10 ML IV PUSH ×3 (05:22→17:05)
[2021-08-13 05:38] LABS: Blood Urea Nitrogen 19 mg/dL (9-20); Calcium 8.8 mg/dL (8.4-10.2); Carbon Dioxide > 40 mmol/L (22-30); Chloride 99 mmol/L (98-107); Estimated CRCL calculation 68 ml/min; Estimated Glomerular Filt Rate > 60; Glucose 93 mg/dL (65-110); Potassium 4.1 mmol/L (3.4-5.0); Sodium 140 mmol/L (137-145)
[2021-08-13] MEDS: ENOXAPARIN 40 MG/0.4 ML SYRINGE SUB-Q (08:56)
[2021-08-13] MEDS: FUROSEMIDE INJ 40 MG/4 ML VIAL 20 MG IV PUSH (08:56)
[2021-08-13] MEDS: lisinopriL 20 MG TABLET PO (08:56)
[2021-08-13] MEDS: PANTOPRAZOLE SODIUM IV 40 MG VIAL IV PUSH (08:56)
[2021-08-13] MEDS: TOPIRAMATE 25 MG TABLET PO (08:56)
[2021-08-13] MEDS: CLOPIDOGREL BISULFATE 75 MG TABLET PO (08:57)
[2021-08-13] MEDS: ATORVASTATIN 40 MG TABLET PO (08:57)
[2021-08-13] MEDS: ASPIRIN 81 MG ENTERIC TABLET PO (08:57)
[2021-08-13] MEDS: predniSONE 20 MG, predniSONE 10 MG 30 MG PO (08:57)
[2021-08-13] MEDS: BUDESONIDE RESPULE NEB 0.5 MG/2 ML AMP INHALATION ×2 (10:57→21:18)
--- NOTE | 2021-08-13 14:43 | PM.PNPUL ---
Progress Note: A&P Assessment and Plan (1) Acute on chronic respiratory failure with hypoxia and hypercapnia: Code(s): J96.21 - Acute and chronic respiratory failure with hypoxia; J96.22 - Acute and chronic respiratory failure with hypercapnia Status: Acute Assessment and Plan: PLAN: 1. Stop piperacillin IV; start oral Levaquin for esteban-sensitive Pseudomonas; 2. I stopped the ondansetron due to the drug interaction with Levaquin. 3. His is going to deliver the Astral NPPV or other unit that he has at home. Will see if he can use this while he is here, and if not, continue BiPAP at 16/6 instead of 16/8. He needs a larger difference between his inspiratory and expiratory pressures to ventilate better. His pCO2 is staying in the high 60s, and he would be better off if this could be reduced. He was intubated this admission. This is a big deal. It is not clear if he really cannot tolerate the Astral or other device, or if he is not complaint, and ended up intubated. He decided to stay with [facility] for all admissions, and he wants to be seen in the pulmonary office here, so all his care is in one place. His DME is [facility]; He is going to keep all his care at [facility] including out patient Treatment. He was seeing a speeder worker Dr Melvin Bonilla in [place], [place]. 4. Continue oral prednisone, nebulized short-acting bronchodilators. Screening for diseases causing severe bronchiectasis such as acquired immune deficiency, alpha-1 antitrypsin deficiency, autoimmune diseases like rheumatoid arthritis, and ABPA. 70-year-old man with multiple medical problems including obesity, sleep apnea, COPD, severe bronchiectasis chronically on Zithromax, history of noncompliance with noninvasive ventilatory support at home presented with episode of acute on chronic hypercapnic respiratory failure. Patient has improved following intubation and mechanical ventilation in the ICU followed by generic BiPAP 16/8 at night and p.r.n. during the day. Respiratory status has been stable for approximately 72 hours. A sputum culture showing Pseudomonas which is esteban-sensitive. With overnight oximetry on BiPAP support 16/8 and FiO2 of 40% showed average saturation 95% and lowest desaturation at 77%. The duration of saturations less than 88% was 3 minutes only or 1%. Overall this is an adequate oxygenation with no clinically significant desaturation on current BiPAP settings and FiO2 40%. (2) COPD (chronic obstructive pulmonary disease): Qualifiers: COPD type: COPD with acute exacerbation Qualified Code(s): J44.1 - Chronic obstructive pulmonary disease with (acute) exacerbation Code(s): J44.9 - Chronic obstructive pulmonary disease, unspecified Status: Acute Assessment and Plan: see above (3) Bronchiectasis: Qualifiers: Bronchiectasis type: uncomplicated Qualified Code(s): J47.9 - Bronchiectasis, uncomplicated Code(s): J47.9 - Bronchiectasis, uncomplicated Status: Acute Assessment and Plan: see above (4) Obstructive sleep apnea: Code(s): G47.33 - Obstructive sleep apnea (adult) (pediatric) Status: Acute Assessment and Plan: using NPPV or BiPAP treats this condition; he has overlap with COPD/ bronchiectasis with FERNANDO (5) Secondary pulmonary hypertension: Status: Acute Assessment and Plan: Echo 06/24/2021 shows RVSP 37 mmHg, technically difficult study Subjective Date/time seen: 08/13/21 14:43 Quentin Zavaleta is 70 years old, seen in follow up for acute on chronic hypercapnic hypoxemic respiratory failure. His is in the room.
--- NOTE | 2021-08-13 15:58 | PM.IMPN ---
Progress Note: A&P Assessment and Plan (1) Acute and chronic respiratory failure with hypercapnia: Code(s): J96.22 - Acute and chronic respiratory failure with hypercapnia Status: Acute Assessment and Plan: Acute hypercapnic respiratory failure likely related to COPD exacerbation, possible pneumonia 08/09 - 05/12 PSV SBT done for more than 1 hour. RSBI, ABGI and Vitals acceptable. Pt awake and following commands. Patient was extubated - patient has done well and tolerated nasal cannula during the day and wore BiPAP at night - continue Bipap PRN and nightly -continue bronchodilators -continue Pulmicort - discussed with pulmonary (2) COPD exacerbation: Code(s): J44.1 - Chronic obstructive pulmonary disease with (acute) exacerbation Status: Acute Assessment and Plan: Significant hypercapnia on ABGs, failed BiPAP requiring intubation and mechanical ventilation -continue steroids -continue antibiotics, bronchodilators (3) Shock: Code(s): R57.9 - Shock, unspecified Status: Acute Assessment and Plan: RESOLVED, OFF LEVOPHED Shock could be related to sepsis, positive-pressure ventilation, hypovolemia -patient has been adequately fluid resuscitated and off IV fluids -lactic acid is 0.5 -will continue maintenance IV fluids -patient on Levophed, will target mean arterial pressures > 65 mmHg for adequate end organ perfusion -currently on Zosyn - 08/09 vancomycin was discontinued -08/07: BLOOD CULTURES NEGATIVE X2, -08/07: SPUTUM CULTURE -no organism seen (4) Encephalopathy: Code(s): G93.40 - Encephalopathy, unspecified Status: Acute Assessment and Plan: Encephalopathy likely related to severe hypercapnia with a pCO2 level of 170 resolved (5) Hypertension: Code(s): I10 - Essential (primary) hypertension Status: Acute Assessment and Plan: Resume lisinopril (6) Pseudomonas pneumonia: Code(s): J15.1 - Pneumonia due to Pseudomonas Status: Acute (7) Tobacco abuse: Code(s): Z72.0 - Tobacco use Status: Acute (8) Seizure disorder: Code(s): G40.909 - Epilepsy, unspecified, not intractable, without status epilepticus Status: Acute (9) Obstructive sleep apnea: Code(s): G47.33 - Obstructive sleep apnea (adult) (pediatric) Status: Acute Additional Plan Code status: Full code advance p.o. diet DC Medel catheter PT OT consult, up in chair, incentive spirometry Transfer to step-down unit today 08/11/21 BiPAP settings and measure overnight oximetry. Continue with current antibiotic until susceptibility testing for Pseudomonas resulted IV steroids were discontinued and the patient was placed on prednisone 30 mg p.o. daily. cont nebulized short-acting bronchodilators. pulm screening for diseases causing severe bronchiectasis such as acquired immune deficiency, alpha-1 antitrypsin deficiency, autoimmune diseases like rheumatoid arthritis, and ABPA. Respiratory status has been stable for approximately 48 hours. cont current care dc planning when cleared by pulm to home 08/12/21 pending sensitivities for pseudomas in sputum previously 01/2021 Ceftazidime S Cefepime S Ciprofloxacin S Levofloxacin S Gentamycin S Imipenem S Piperacillin/Tazobactam S Tobramycin S cont zosyn for now follow cultures chronic lung disesase currently at baseline o2 requirements chronic LE swelling on lasix at home dc planning when cleared by pulm home w [facility] 08/13/21 repeat cultures released 08/12/21 pseudomonas in sputum again pansensitive anticipate dc home on cipro or levofloxacin to complete abx course cont
--- NOTE | 2021-08-13 16:46 | PC.NURSE ---
Home Trelegy machine brought from home. Maintenance and respiratory called.
--- NOTE | 2021-08-13 21:50 | PC.NURSE ---
This patient, Quentin Zavaleta, was transferred to [ [facility]] on 08/13/21 at 2145. Personal belongings sent with patient. Report given to [Aron ]. Appropriate documentation sent with patient.
[2021-08-14] VITALS (16 sets, daily range): BP systolic 127–158; BP diastolic 42–73; PULSE 61–98; RESP 1–23; TEMP 36.3–37.2; O2SAT 90–97
--- NOTE | 2021-08-14 01:59 | PC.NURSE ---
Daylight Savings Time For Daylight Savings Time Ending in the Fall - Clocks are moved back. For Daylight Savings Time Beginning in the Spring - Clocks are moved ahead. For [facility], the time of change occurs at 0200 hrs. Time is taken from the senior sql server developer. This entry on the patient's chart recognizes the change in time reflected during documentation. Example: 2 entries for vital signs may be charted for 0200 hrs.
[2021-08-14] MEDS: IPRATROPIUM BR 0.02% INH SOLN 0.5 MG/2.5 ML VIAL INHALATION ×4 (02:53→20:51)
[2021-08-14] MEDS: ALBUTEROL SULFATE NEB 2.5 MG/0.5 ML INH 5 MG INHALATION ×4 (02:53→20:51)
[2021-08-14 05:06] LABS: Alveolar/Arterial O2 Gradient 93.9 mmHg; Base Excess ABG 10.9 mEq/l (+/-2.0); Fractional Inspired Oxygen 32 %; HCO3 ABG 38.2 mEq/l (22.0-26.0); Oxygen Content ABG 13.1 %vol (16.0-22.0); Oxygen Saturation ABG 87.5 % (95.0-100.0); PO2 ABG 56.3 mmHg (80.0-100.0); PO2 FiO2 Ratio Arterial Blood 1.76 %; Total Hemoglobin 10.7 g/dL (12.0-18.0); pH ABG 7.376 (7.350-7.450)
[2021-08-14 05:09] LABS: Device CPAP; Modified Allen's Test Pass; PCO2 ABG 66.6 mmHg (35.0-45.0); Site Drawn RIGHT RADIAL
[2021-08-14] MEDS: PHENYTOIN SODIUM 100 MG EXTENDED RELEASE CAP PO ×3 (05:33→22:45)
[2021-08-14 08:30] LABS: Blood Urea Nitrogen 21 mg/dL (9-20); Calcium 8.8 mg/dL (8.4-10.2); Carbon Dioxide > 40 mmol/L (22-30); Chloride 97 mmol/L (98-107); Estimated CRCL calculation 74 ml/min; Estimated Glomerular Filt Rate > 60; Glucose 96 mg/dL (65-110); Potassium 3.8 mmol/L (3.4-5.0); Sodium 138 mmol/L (137-145)
[2021-08-14 08:32] LABS: Basophils Absolute Auto 0.1 K/mm3 (0.0-0.1); Basophils Percent Auto 0.7 % (0.2-1.2); Eosinophils Absolute Auto 0.4 K/mm3 (0-0.3); Eosinophils Percent Auto 5.9 % (0-4.4); Hematocrit 31.7 % (42.0-52.0); Hemoglobin 9.5 g/dL (14.0-18.0); Immature Granulocyte Absolute 0.24 K/mm3 (0.00-0.031); Immature Granulocyte Percent A 3.6 % (0-0.5); Lymphocytes Absolute Auto 0.68 K/mm3 (0.9-3.2); Lymphocytes Percent Auto 10.1 % (18.3-44.2); Mean Corpuscular Hemoglobin 30.5 pg (26-34); Mean Corpuscular Volume 101.9 fl (80-100); Mean Platelet Volume 9.5 fl (7.4-10.4); Monocytes Absolute Auto 0.7 K/mm3 (0.1-0.6); Monocytes Percent Auto 9.7 % (2.6-8.5); Neutrophils Absolute Auto 4.7 K/mm3 (1.3-6.7); Platelet Count Result 224 k/mm3 (150-375); Red Blood Count 3.11 M/mm3 (4.6-6.20); Red Cell Distribution Width 16.5 % (11.5-14.5); White Blood Count 6.7 K/mm3 (4.5-10.0)
[2021-08-14] MEDS: BUDESONIDE RESPULE NEB 0.5 MG/2 ML AMP INHALATION ×2 (08:32→20:51)
[2021-08-14] MEDS: FUROSEMIDE INJ 40 MG/4 ML VIAL 20 MG IV PUSH (08:48)
[2021-08-14] MEDS: TOPIRAMATE 25 MG TABLET PO (08:48)
[2021-08-14] MEDS: PANTOPRAZOLE SODIUM IV 40 MG VIAL IV PUSH (08:48)
[2021-08-14] MEDS: levoFLOXacin 500 MG TABLET PO (08:48)
[2021-08-14] MEDS: ENOXAPARIN 40 MG/0.4 ML SYRINGE SUB-Q (08:48)
[2021-08-14] MEDS: CLOPIDOGREL BISULFATE 75 MG TABLET PO (08:49)
[2021-08-14] MEDS: ASPIRIN 81 MG ENTERIC TABLET PO (08:49)
[2021-08-14] MEDS: lisinopriL 20 MG TABLET PO ×2 (08:49→22:44)
[2021-08-14] MEDS: predniSONE 20 MG, predniSONE 10 MG 30 MG PO (08:49)
[2021-08-14] MEDS: ATORVASTATIN 40 MG TABLET PO (08:49)
--- NOTE | 2021-08-14 16:40 | PM.PNPUL ---
Progress Note: A&P Assessment and Plan (1) Acute on chronic respiratory failure with hypoxia and hypercapnia: Code(s): J96.21 - Acute and chronic respiratory failure with hypoxia; J96.22 - Acute and chronic respiratory failure with hypercapnia Status: Acute Assessment and Plan: PLAN: 1. Use hospital BiPAP 16/6 with 4L - 5 L /minute with sleep tonight. Plan to let him go home switching his Astral for BiPAP. He uses [facility] as his DME. 2. Continue oral prednisone, nebulized short-acting bronchodilators. Screening for diseases causing severe bronchiectasis such as acquired immune deficiency, alpha-1 antitrypsin deficiency, autoimmune diseases like rheumatoid arthritis, and ABPA. His DIGNA is pending. Alpha-1 is ordered however I do not see that it has been sent. IgM is slightly low, IgA and IgG are normal. IgE is result is pending. 3. CXR 2 views in am. f/u from Aug 10 with bilateral infiltrates/edema 70-year-old man with multiple medical problems including obesity, sleep apnea, COPD, severe bronchiectasis chronically on Zithromax, history of noncompliance with noninvasive ventilatory support at home presented with episode of acute on chronic hypercapnic respiratory failure. Patient has improved following intubation and mechanical ventilation in the ICU followed by BiPAP 16/8 at night and p.r.n. during the day. This is now changed to 16/6 to increase ventilation. Respiratory status has been stable for 5 days. A sputum culture showing Pseudomonas which is esteban-sensitive. (2) COPD (chronic obstructive pulmonary disease): Qualifiers: COPD type: COPD with acute exacerbation Qualified Code(s): J44.1 - Chronic obstructive pulmonary disease with (acute) exacerbation Code(s): J44.9 - Chronic obstructive pulmonary disease, unspecified Status: Acute Assessment and Plan: see above (3) Bronchiectasis: Qualifiers: Bronchiectasis type: uncomplicated Qualified Code(s): J47.9 - Bronchiectasis, uncomplicated Code(s): J47.9 - Bronchiectasis, uncomplicated Status: Acute Assessment and Plan: see above (4) Obstructive sleep apnea: Code(s): G47.33 - Obstructive sleep apnea (adult) (pediatric) Status: Acute Assessment and Plan: Has had Astral device at home; he likes BiPAP better; he has overlap with COPD/ bronchiectasis with FERNANDO (5) Secondary pulmonary hypertension: Status: Acute Assessment and Plan: Echo 06/24/2021 shows RVSP 37 mmHg, technically difficult study Subjective Date/time seen: 08/14/21 16:40 Quentin Zavaleta is 70 years old, seen in follow up for acute on chronic hypercapnic hypoxemic respiratory failure. He is better, has been moved to [facility], so he is out of the IMU. He wore his Astral last night, did not sleep well. He says that he sleeps better using the hospital BiPAP than his Astral. ABG today after Astral was similar to other ABGs this admission. 7.37/66.6/56.3 pO2/ 38.2 HCO3. He still has a cough, has small amounts of sputum, still feels short of breath, and wants to go home tomorrow. He has been using BiPAP since extubation. His sputum is growing esteban-sensitive Pseudomonas and he was started on Levaquin orally yesterday. . 08/13 - po Levaquin started; Astral from home worn overnight Aug 13 to 08/14 - moved to Room 328; ABG after Astral 7.37/66.6/56.3/38.3 on FiO2 32% Review of Systems Review of Systems: All systems reviewed & are unremarkable except as noted in HPI and below (history) Exam Narrative: GEN: Alert, oriented, not in distress. He is sitting up in a chair, not in distress. HEENT: pupils ar
--- NOTE | 2021-08-14 19:15 | PM.IMPN ---
Progress Note: A&P Assessment and Plan (1) Acute and chronic respiratory failure with hypercapnia: Code(s): J96.22 - Acute and chronic respiratory failure with hypercapnia Status: Acute (2) COPD exacerbation: Code(s): J44.1 - Chronic obstructive pulmonary disease with (acute) exacerbation Status: Acute (3) Shock: Code(s): R57.9 - Shock, unspecified Status: Acute (4) Encephalopathy: Code(s): G93.40 - Encephalopathy, unspecified Status: Acute (5) Hypertension: Code(s): I10 - Essential (primary) hypertension Status: Acute Assessment and Plan: Resume lisinopril (6) Pseudomonas pneumonia: Code(s): J15.1 - Pneumonia due to Pseudomonas Status: Acute (7) Tobacco abuse: Code(s): Z72.0 - Tobacco use Status: Acute (8) Seizure disorder: Code(s): G40.909 - Epilepsy, unspecified, not intractable, without status epilepticus Status: Acute (9) Obstructive sleep apnea: Code(s): G47.33 - Obstructive sleep apnea (adult) (pediatric) Status: Acute Additional Plan 08/10/21 Acute hypercapnic respiratory failure likely related to COPD exacerbation, possible pneumonia 08/09 - 05/12 PSV SBT done for more than 1 hour. RSBI, ABGI and Vitals acceptable. Pt awake and following commands. Patient was extubated - patient has done well and tolerated nasal cannula during the day and wore BiPAP at night - continue Bipap PRN and nightly -continue bronchodilators -continue Pulmicort - discussed with pulmonary Significant hypercapnia on ABGs, failed BiPAP requiring intubation and mechanical ventilation -continue steroids -continue antibiotics, bronchodilators RESOLVED, OFF LEVOPHED Shock could be related to sepsis, positive-pressure ventilation, hypovolemia -patient has been adequately fluid resuscitated and off IV fluids -lactic acid is 0.5 -will continue maintenance IV fluids -patient on Levophed, will target mean arterial pressures > 65 mmHg for adequate end organ perfusion -currently on Zosyn - 08/09 vancomycin was discontinued -08/07: BLOOD CULTURES NEGATIVE X2, -08/07: SPUTUM CULTURE -no organism seen Encephalopathy likely related to severe hypercapnia with a pCO2 level of 170 resolved Code status: Full code advance p.o. diet DC Medel catheter PT OT consult, up in chair, incentive spirometry Transfer to step-down unit today 08/11/21 BiPAP settings and measure overnight oximetry. Continue with current antibiotic until susceptibility testing for Pseudomonas resulted IV steroids were discontinued and the patient was placed on prednisone 30 mg p.o. daily. cont nebulized short-acting bronchodilators. pulm screening for diseases causing severe bronchiectasis such as acquired immune deficiency, alpha-1 antitrypsin deficiency, autoimmune diseases like rheumatoid arthritis, and ABPA. Respiratory status has been stable for approximately 48 hours. cont current care dc planning when cleared by pulm to home 08/12/21 pending sensitivities for pseudomas in sputum previous + culture for pseudomonas on 01/2021 PANSENSITIVE Ceftazidime S Cefepime S Ciprofloxacin S Levofloxacin S Gentamycin S Imipenem S Piperacillin/Tazobactam S Tobramycin S cont zosyn for now follow cultures chronic lung disesase currently at baseline o2 requirements chronic LE swelling on lasix at home dc planning when cleared by pulm home w [facility] 08/13/21 repeat cultures released 08/12/21 pseudomonas in sputum again pansensitive anticipate dc home on cipro or levofloxacin to complete abx course cont home O2 3L pt to bring BIPAP machine to hospital to be adjusted
[2021-08-15] VITALS (16 sets, daily range): BP systolic 116–157; BP diastolic 40–70; PULSE 63–109; RESP 12–18; TEMP 36.1–37.1; O2SAT 82–100
[2021-08-15] MEDS: ALBUTEROL SULFATE NEB 2.5 MG/0.5 ML INH 5 MG INHALATION ×3 (02:01→14:20)
[2021-08-15] MEDS: IPRATROPIUM BR 0.02% INH SOLN 0.5 MG/2.5 ML VIAL INHALATION ×3 (02:01→14:19)
[2021-08-15] MEDS: PHENYTOIN SODIUM 100 MG EXTENDED RELEASE CAP PO ×2 (06:14→13:14)
[2021-08-15 06:49] LABS: Basophils Percent Auto 0.6 % (0.2-1.2); Eosinophils Absolute Auto 0.3 K/mm3 (0-0.3); Eosinophils Percent Auto 4.1 % (0-4.4); Hematocrit 31.8 % (42.0-52.0); Hemoglobin 9.7 g/dL (14.0-18.0); Immature Granulocyte Absolute 0.16 K/mm3 (0.00-0.031); Immature Granulocyte Percent A 2.4 % (0-0.5); Lymphocytes Absolute Auto 0.72 K/mm3 (0.9-3.2); Mean Corpuscular HGB Conc 30.5 g/dl (32-36); Mean Corpuscular Hemoglobin 30.8 pg (26-34); Mean Platelet Volume 9.4 fl (7.4-10.4); Monocytes Absolute Auto 0.7 K/mm3 (0.1-0.6); Monocytes Percent Auto 10.5 % (2.6-8.5); Neutrophils Absolute Auto 4.7 K/mm3 (1.3-6.7); Neutrophils Percent Auto 71.4 % (45.5-73.1); Platelet Count Result 243 k/mm3 (150-375); Red Blood Count 3.15 M/mm3 (4.6-6.20); Red Cell Distribution Width 16.8 % (11.5-14.5); White Blood Count 6.6 K/mm3 (4.5-10.0)
[2021-08-15 07:19] LABS: Blood Urea Nitrogen 18 mg/dL (9-20); Calcium 8.9 mg/dL (8.4-10.2); Carbon Dioxide > 40 mmol/L (22-30); Chloride 97 mmol/L (98-107); Estimated CRCL calculation 78 ml/min; Estimated Glomerular Filt Rate > 60; Glucose 111 mg/dL (65-110); Potassium 3.7 mmol/L (3.4-5.0); Sodium 138 mmol/L (137-145)
[2021-08-15] MEDS: CLOPIDOGREL BISULFATE 75 MG TABLET PO (09:56)
[2021-08-15] MEDS: FUROSEMIDE 20 MG TABLET PO (09:56)
[2021-08-15] MEDS: ATORVASTATIN 40 MG TABLET PO (09:56)
[2021-08-15] MEDS: ENOXAPARIN 40 MG/0.4 ML SYRINGE SUB-Q (09:56)
[2021-08-15] MEDS: predniSONE 20 MG, predniSONE 10 MG 30 MG PO (09:57)
[2021-08-15] MEDS: lisinopriL 20 MG TABLET PO (09:57)
[2021-08-15] MEDS: TOPIRAMATE 25 MG TABLET PO (09:57)
[2021-08-15] MEDS: PANTOPRAZOLE SODIUM IV 40 MG VIAL IV PUSH (09:57)
[2021-08-15] MEDS: ASPIRIN 81 MG ENTERIC TABLET PO (09:57)
[2021-08-15] MEDS: levoFLOXacin 500 MG TABLET PO (09:57)
--- NOTE | 2021-08-15 11:25 | PM.PNPUL ---
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 He was admitted from 07/18/21 to 07/21/21 and discharged on a home noninvasive ventilator with an AVAPS AE mode But could not tolerate this noninvasive ventilator and was switched to an ask straw noninvasive ventilator. At home he said he struggled with this asked for a noninvasive ventilator and was unable to wear it much. 70-year-old man with multiple medical problems including obesity, sleep apnea, COPD, severe bronchiectasis chronically on Zithromax, history of noncompliance with noninvasive ventilatory support at home presented with episode of acute on chronic hypercapnic respiratory failure. Patient has improved following intubation and mechanical ventilation in the ICU followed by BiPAP 16/8 at night and p.r.n. during the day. This is now changed to 16/6 to increase ventilation. Respiratory status has been stable for 5 days. A sputum culture showing Pseudomonas which is esteban-sensitive including levaquin. 08/14 PLAN: 1. Use hospital BiPAP 16/6 with 4L - 5 L /minute with sleep tonight. Plan to let him go home switching his Astral for BiPAP. He uses [facility] [employer] as his DME. 2. Continue oral prednisone, nebulized short-acting bronchodilators. Screening for diseases causing severe bronchiectasis such as acquired immune deficiency, alpha-1 antitrypsin deficiency, autoimmune diseases like rheumatoid arthritis, and ABPA. His DIGNA is pending. Alpha-1 is ordered however I do not see that it has been sent. IgM is slightly low, IgA and IgG are normal. IgE is result is pending. 3. CXR 2 views in am. f/u from Aug 10 with bilateral infiltrates/edema 08/15 Patient states that he is 100% back to his baseline for him. In the past he has been unable to tolerate a noninvasive ventilator with AVAPS-AE mode, an astral noninvasive ventilation and now states he is able to tolerate straight BiPAP with rate of 12 and 16/6. CXR with slight improved in infiltrates. I spoken with the city wellness coordinator and at this time his [employer] company, [employer], will attempt to reprogrammed his Astral to mimic the BiPAP setting of rate 12, I pressure 16, E pressure is 6. Patient should continue 4 L bleed in. I spoke with the patient and at this time he wishes to go home today and wear his Astral tonight and have it reprogrammed in the morning. Patient is suitable from a pulmonary perspective to be discharged home on these pulmonary medicines: Prednisone 30 mg PO Q day last dose 08/16 Levaquin 500 mg PO Q day, last dose 08/20 (14 days total antibiotics) Duonebs QID Budesonide 500 mcg neb BID azithromycin 500 mg PO ,, Daliresp 500 mg PO Q day Oxygen per home O2 assessment today ( I have ordered this test) Astral noninvasive ventilation with BiPAP rate of 12, inspiratory pressure 16, EPAP 6 and 4 L bleed in whenever he sleeps. Follow up in pulmonary clinic in 3-4 weeks. He should have an outpatient overnight oximetry on 4 L bleed in. I have informed our hydroblaster. Discussed with Dr. Green.
--- NOTE | 2021-08-15 12:01 | PCNFU ---
Nutrition Follow-Up Complete: Inadequate oral intake related to oral intubation as evidenced by NPO status. Goal: Patient to meet estimated nutritional needs. Patient is progressing towards goal. No new goal at this time. Pt current nutrition is a heart healthy diet with ensure compact BID providing an additional 220 calories and 9 grams of protein. Last recorded weight is 100.4 kg. Recommend re-weighing pt. prior to discharge to further monitor weight loss/gain. Bowel Motility: + BM 08/12/2021 Labs Reviewed: Hgb 9.7, Hct 31.8, Glu 111 Meds Noted: Albuterol, Lipitor, Plavix, Lovenox, Aspirin, Budesonide, Hydralazine Hcl, Atrovent Neb, Prinivil, Levofloxacin, Topamax, Prednisone Additional Notes: Spoke with patient and patient's . They are aware they need to make some lifestyle changes as they are heading down the wrong path. We discussed taking it one day at a time and incorporating small changes at first to make it a more sustainable lifestyle change. He states having an okay appetite consuming on average 90% of all meals ordered. No significant skin issues documented. Pt. had no additional nutritional questions and/or concerns at this time. Follow up in 5 days.
--- NOTE | 2021-08-15 13:16 | PCRCNOTE ---
Order for Astral setting changes faxed to patient's DME, [facility].
--- NOTE | 2021-08-15 13:33 | PM.DS ---
DS: Admitting Diagnosis Discharge Date 08/15/21 Admitting Diagnosis Respiratory Distress DS: Discharge Diagnosis Discharge Diagnosis (1) Acute and chronic respiratory failure with hypercapnia: Code(s): J96.22 - Acute and chronic respiratory failure with hypercapnia Status: Acute (2) COPD exacerbation: Code(s): J44.1 - Chronic obstructive pulmonary disease with (acute) exacerbation Status: Acute (3) Shock: Code(s): R57.9 - Shock, unspecified Status: Acute (4) Encephalopathy: Code(s): G93.40 - Encephalopathy, unspecified Status: Acute (5) Hypertension: Code(s): I10 - Essential (primary) hypertension Status: Acute (6) Pseudomonas pneumonia: Code(s): J15.1 - Pneumonia due to Pseudomonas Status: Acute (7) Tobacco abuse: Code(s): Z72.0 - Tobacco use Status: Acute (8) Seizure disorder: Code(s): G40.909 - Epilepsy, unspecified, not intractable, without status epilepticus Status: Acute (9) Obstructive sleep apnea: Code(s): G47.33 - Obstructive sleep apnea (adult) (pediatric) Status: Acute DS: Summary Hospital Course Reason for hospitalization: 70yo male with COPD and chronic respiratory failure here for SOB and found to be in acute respiratory failure. Please see H&P for details. Hospital Course: Patient presents to the ED in respiratory failure with increasing confusion and difficulty breathing. BiPAP was attempted without benefit. Per EMS, SpO2 was in the 50-60% range. PH was 7.08/171/308. Patient was intubated and moved to the ICU. Patient also with septic shock requiring Levophed. Patient had bibasilar airspace disease. He was started on broad-spectrum IV antibiotics. Patient was started Solu-Medrol as well. Patient was stabilized. He was able to be extubated on 08/09/2021. Was held weaned off Levophed. Grocery Stock Clerk and pulmonary service were consulted. Blood cultures were negative. Sputum culture grew Pseudomonas that was pansensitive. He was able to weaned down to 3 L nasal cannula which is his baseline. His BiPAP was adjusted which he tolerated well (pulmonary will request [email or web address] company to reset BiPAP with the new changes). He worked with therapy. He is up walking in the room. Antibiotics were adjusted and narrowed. He overall did well. He feels ready for discharge. Patient did well and was able to discharge home on 08/15/2021. Patient is not vaccinated against COVID or influenza and these vaccines were recommended. He refuses to have COVID vaccine and voices understanding of the risks of not having this vaccine including respiratory failure and . Padmini interacts with Dilantin so this was not ordered. Status at Discharge Cognitive/behavioral status at discharge: Stable Time Spent with Patient Time attestation: Total time spent providing and/or coordinating discharge services: 35 minutes Time spent: Greater than 30 minutes Exam Narrative: AF 97.0 116/40 70 18 94% 3L Gen - NARD Chest - bilaterally crackles, nml RR CV - RRR S1/S2 Abd - Soft, NT Ext - trace pedal edema. Negative Pamela's Psych - Nml mood and affect Skin - Warm and dry DS: Data Data Completed and Pending Labs on day of discharge: Labs from last 24 hours 08/15/21 08/15/21 06:13 06:13 WBC 6.6 RBC 3.15 L Hgb 9.7 L Hct 31.8 L MCV 101.0 H MCH 30.8 MCHC 30.5 L RDW 16.8 H Plt Count 243 MPV 9.4 Immature Gran % (Auto) 2.4 H Neut % (Auto) 71.4 Lymph % (Auto) 11.0 L Bay % (Auto) 10.5 H Eos % (Auto) 4.1 Baso % (Auto) 0.6 Lymph # (Auto) 0.72 L Bay # (Auto) 0.7 H Eos # (Auto) 0.3 Baso # (Auto) 0.0 Abs Immat Gran (auto) 0.16 H Absolute Neuts (auto) 4.7 Absolute Nucleated RBC 0.0 Nucleated RBC % 0.0 Sodium 138 Potassium 3.7 Chloride 97 L Carbon Dioxide > 40 H Anion Gap BUN 18 Creatinine 0.90 Estim Creat Clear Calc 78 Estim
--- NOTE | 2021-08-15 13:55 | HOMEO2EVAL ---
Evaluation was performed at [facility] Home Oxygen Evaluation RC: Home Oxygen (O2) Evaluation Start: 08/15/21 11:25 Freq: ONCE Status: Active Protocol: RPE Activity Type Activity Date Activity User E-Sign Co-Sign Detail Recorded Client Recorded Date Recorded By Document 08/15/21 13:37 [email or web address] [email or web address] 08/15/21 13:55 KRM Document 08/15/21 13:37 [email or web address] [email or web address] 08/15/21 13:55 KRM Document 08/15/21 13:38 [email or web address] [email or web address] 08/15/21 13:55 KRM Document 08/15/21 13:39 [email or web address] [email or web address] 08/15/21 13:55 KRM Document 08/15/21 13:40 [email or web address] [email or web address] 08/15/21 13:55 KRM Document 08/15/21 13:41 [email or web address] [email or web address] 08/15/21 13:55 KRM Document 08/15/21 13:42 KRM [email or web address] 08/15/21 13:55 KRM 08/15/21 08/15/21 08/15/21 13:37 13:37 13:38 Home O2 Evaluation Test Phase Resting Resting Resting Oxygen Delivery Room Air Nasal Cannula Nasal Cannula Oxygen Flow Rate (L/min) 1 2 Pulse Oximetry (90-100 %) 86 L 85 L 86 L Pulse Rate (60-100 beats/min) 80 71 71 Activity Tolerance Ambulation Distance (feet) Home Oxygen Evaluation Comments Treatment Charges 08/15/21 08/15/21 08/15/21 13:39 13:40 13:41 Home O2 Evaluation Test Phase Resting Exercise Exercise Oxygen Delivery Nasal Cannula Nasal Cannula Nasal Cannula Oxygen Flow Rate (L/min) 3 3 4 Pulse Oximetry (90-100 %) 90 85 L 82 L Pulse Rate (60-100 beats/min) 73 108 H 109 H Activity Tolerance Fair Fair Ambulation Distance (feet) Home Oxygen Evaluation Comments Treatment Charges 08/15/21 13:42 Home O2 Evaluation Test Phase Exercise Oxygen Delivery Nasal Cannula Oxygen Flow Rate (L/min) 6 Pulse Oximetry (90-100 %) 90 Pulse Rate (60-100 beats/min) 104 H Activity Tolerance Fair Ambulation Distance (feet) 50 Home Oxygen Evaluation Comments 3LPM AT REST, 6LPM WITH ACTIVITY. Treatment Charges O2 Evaluation - Inpatient
--- NOTE | 2021-08-15 13:56 | PCRCNOTE ---
HOME OXYGEN EVALUATION COMPLETE. PT. O2 NEEDS HAVE NOT CHANGED. CURRENT HOME O2 SETTING OF 3LPM AT REST AND 6LPM ARE APPROPRIATE. RN AND PROVIDER AWARE.
--- NOTE | 2021-08-15 14:54 | PCNSR ---
On 08/15/21, the student, Elodia Naranjo, provided care and completed [facility] documentation on this patient. I have reviewed the student's documentation and agree with the findings.
[2021-08-15 16:24] LABS: Aspergillus fumigatus (m3) IgG 96.1 mcg/mL (<2.0)
[2021-08-15 20:59] LABS: ANA Cascade Screen Negative (Negative)
--- NOTE | 2021-08-17 10:10 | PC.NURSE ---
DIGNA is negative.
[2021-08-17 10:15] LABS: Aspergillus Fumigatus K/UL <0.10 (<0.10); Conventional Class 0 (0)
[2021-08-18 00:46] LABS: Anti Cyclic Citrullinated Pept <16 Units (<20)
--- NOTE | 2021-08-23 08:34 | PC.NURSE ---
DIGNA is negative ANTI CCPR WNL ASpergillus IgG elevated at 96.1 IgE is WNL at <0.10 Dr. Norma frazier.
--- NOTE | 2021-08-23 13:18 | PC.NURSE ---
Aspergillus fumigatus IgG antibody is elevated at 96.1. Normal is <2.0. Dr. Norma frazier.
== END 2021-08-15 15:46 | disposition home health service (06) | DRG 871 ==
LOC: ANHED 08-07 01:36 → ANHIMU 08-07 03:32 → ANHICU 08-07 04:25 → ANH3MEDSUR 08-15 13:57 → ANHICU 08-16 10:20 → ANHIMU 08-16 10:20
PROVIDERS: Internal Medicine; Internal Medicine Critical Care Medicine; Internal Medicine Pulmonary Disease; Admitting Provider Internal Medicine; Emergency Provider Emergency Medicine; PCP Student in an Organized Health Care Education/Training Program; Visit Provider Hospitalist
DX: A41.9 Sepsis, unspecified organism (principal); J96.22 Acute and chronic respiratory failure with hypercapnia; R65.21 Severe sepsis with septic shock; G93.41 Metabolic encephalopathy; J15.1 Pneumonia due to Pseudomonas; J96.11 Chronic respiratory failure with hypoxia; J43.9 Emphysema, unspecified; G89.29 Other chronic pain; M54.9 Dorsalgia, unspecified; R13.10 Dysphagia, unspecified; E78.5 Hyperlipidemia, unspecified; I10 Essential (primary) hypertension; G47.33 Obstructive sleep apnea (adult) (pediatric); D53.9 Nutritional anemia, unspecified; Z99.81 Dependence on supplemental oxygen; I73.9 Peripheral vascular disease, unspecified; Z85.46 Personal history of malignant neoplasm of prostate; Z92.3 Personal history of irradiation; I27.20 Pulmonary hypertension, unspecified; G40.909 Epilepsy, unspecified, not intractable, without status epilepticus; Z87.891 Personal history of nicotine dependence; Z79.82 Long term (current) use of aspirin; R68.0 Hypothermia, not associated with low environmental temperature; J47.9 Bronchiectasis, uncomplicated
CPT/HCPCS: 31500; 36415; 36600; 51702; 71045; 71046; 80048; 80053; 80202; 82375; 82784; 82805; 82948; 83050; 83605; 83735; 83880; 84100; 84443; 85025; 85610; 86001; 86003; 86038; 86140; 86200; 86430; 87040; 87070; 87077; 87184; 87186; 87205; 94003; 94618; 94640; 94660; 94762; 96365; 96366; 96367; 96375; 97110; 97116; 97161; 97165; 97530; 97535; 99232; 99291; A9270; C1751; C9113; G0378; J0131; J0330; J0360; J1650; J1940; J2250; J2543; J2930; J3010; J3370; J7030; J7050; J7120; J7512

== ENCOUNTER 2022-01-17 12:47 | Outpatient (CLI) | payer MEDICARE, SELFPAY ==
[2022-01-17] VITALS (9 sets, daily range): PULSE 70–100; O2SAT 85–91
--- NOTE | 2022-01-17 15:00 | HOMEO2EVAL ---
Evaluation was performed at [facility] Home Oxygen Evaluation RC: Home Oxygen (O2) Evaluation Start: 01/17/22 14:51 Freq: Status: Active Protocol: RPE Activity Type Activity Date Activity User E-Sign Co-Sign Detail Recorded Client Recorded Date Recorded By Document 01/17/22 13:45 [email or web address] [email or web address] 01/17/22 15:00 DJO Document 01/17/22 13:50 DJO [email or web address] 01/17/22 15:00 DJO Document 01/17/22 13:55 DJO [email or web address] 01/17/22 15:00 DJO Document 01/17/22 14:00 DJO [email or web address] 01/17/22 15:00 DJO Document 01/17/22 14:05 DJO [email or web address] 01/17/22 15:00 DJO Document 01/17/22 14:10 DJO [email or web address] 01/17/22 15:00 DJO Document 01/17/22 14:15 DJO [email or web address] 01/17/22 15:00 DJO Document 01/17/22 14:20 DJO [email or web address] 01/17/22 15:00 DJO Document 01/17/22 14:35 [email or web address] [email or web address] 01/17/22 15:00 DJO 01/17/22 01/17/22 01/17/22 13:45 13:50 13:55 Home O2 Evaluation Test Phase Resting Resting Resting Oxygen Delivery Room Air Nasal Cannula Nasal Cannula Oxygen Flow Rate (L/min) 1 2 Pulse Oximetry (90-100 %) 85 L 87 L 88 L Pulse Rate (60-100 beats/min) 72 75 74 Activity Tolerance Ambulation Distance (feet) Ambulation Distance (meters) Treatment Charges O2 Evaluation - Outpatient 01/17/22 01/17/22 01/17/22 14:00 14:05 14:10 Home O2 Evaluation Test Phase Resting Exercise Exercise Oxygen Delivery Nasal Cannula Nasal Cannula Nasal Cannula Oxygen Flow Rate (L/min) 3 3 4 Pulse Oximetry (90-100 %) 91 86 L 87 L Pulse Rate (60-100 beats/min) 70 95 96 Activity Tolerance Ambulation Distance (feet) Ambulation Distance (meters) Treatment Charges 01/17/22 01/17/22 01/17/22 14:15 14:20 14:35 Home O2 Evaluation Test Phase Exercise Exercise Resting Oxygen Delivery Nasal Cannula Nasal Cannula Nasal Cannula Oxygen Flow Rate (L/min) 5 6 3 Pulse Oximetry (90-100 %) 88 L 90 90 Pulse Rate (60-100 beats/min) 100 94 75 Activity Tolerance Poor Ambulation Distance (feet) 200 Ambulation Distance (meters) 60.95 Treatment Charges
--- NOTE | 2022-01-17 16:41 | WPDPFTINT ---
PFT Procedure Performed PFT Procedure Performed Spirometry with Pre/Post Bronchodilator Plethysmography (Lung Vol) Diffusing Cap (DLCO) Flow Vol Loop PFT Interpretation This is a pulmonary function test with pre and post-bronchodilator spirometry, plethysmography and diffusing capacity. The test was performed and results interpreted in accordance with the 2019 and 2005 ATS/ERS Task Force guidelines respectively using the Global Lung Function Initiative-2012 reference equations. Patient demonstrated good effort and cooperation. Reproducibility criteria were met. The quality of the pre bronchodilator spirometry maneuver was Grade A and post bronchodilator spirometry maneuver was Grade A. Findings: Spirometry: There is decreased maximal expiratory airflow at all lung volumes with a concave expiratory flow tracing. The contour the inspiratory flow tracing is normal. The pre bronchodilator FVC is 2.31 L, 58% predicted. The pre bronchodilator FEV1 is 0.76 L, 25% predicted. The pre bronchodilator FEV1: FVC ratio is 33%. The post bronchodilator FVC is 2.44 L, representing a 6% increase. The post bronchodilator FEV1 is 0.77 L, representing 1% increase. The post bronchodilator FEV1: FVC is ratio is 31%. Plethysmography: The total lung capacity is 6.63 L, 100% predicted. The functional residual capacity is 5.00 L, 142% predicted. The residual volume is 4.28 L, 182% predicted. Diffusing capacity: The diffusion capacity unadjusted for hemoglobin and carboxyhemoglobin is 6.0, 24% predicted. The diffusing capacity corrected for alveolar volume is 2.19, 54% predicted. Impression: There is a very severe obstructive abnormality without significant improvement after inhaling a single dose of albuterol. The increase in residual volume is consistent with air trapping from an obstructive abnormality. The diffusing capacity unadjusted for hemoglobin and carboxyhemoglobin is severely decreased and remains moderately decreased when adjusted for alveolar volume. There are no prior studies for comparison
== END 2022-01-17 12:48 | disposition home or self-care (01) ==
LOC: ANHPFT 12:49
PROVIDERS: PCP Student in an Organized Health Care Education/Training Program; Visit Provider Internal Medicine Pulmonary Disease
DX: R06.00 Dyspnea, unspecified (principal); R06.02 Shortness of breath; J44.9 Chronic obstructive pulmonary disease, unspecified
CPT/HCPCS: 94060; 94618; 94726; 94729

== ENCOUNTER 2022-02-18 08:27 | Inpatient (IN) | payer MEDICARE, SELFPAY ==
[2022-02-18] VITALS (25 sets, daily range): BP systolic 105–138; BP diastolic 46–69; PULSE 69–112; RESP 13–30; TEMP 36.9–38.1; O2SAT 92–99; BMI 33.0
--- NOTE | 2022-02-18 | ECHO_ITS ---
Patient Info Name: Quentin Zavaleta Age: 71 years : 1950 Gender: Male Ht: 69 in Wt: 223 lbs BSA: 2.25 m2 HR: 63 bpm BP: 113 / 51 mmHg Heart Rhythm: Sinus Rhythm Technical Quality: Poor, Other Exam Date: 02/18/2022 1:31 PM Exam Location: [facility] Pulmonary Patient Status: Inpatient Admit Date: 02/18/2022 Staff Ordering Physician: Zana King MD Electric Drill Operator: Sowmya Chahal RDCS Attending Provider: Joaquin Rees MD Exam Type: CA echo dop color flow w con Study Info Indications I50.20 - Unspecified systolic (congestive) heart failure Complete two-dimensional, color flow and Doppler transthoracic echocardiogram is performed with contrast to opacify the left ventricle and to improve the deliniation of the left ventricle endocardial borders. Patient on bipap, covid postive. Contrast/Agitated Saline Contrast/Ag. Saline: Definity Amount: 3.00 ml Reason for Poor Study: poor echocardiographic windows Summary 1. Left ventricular chamber dimension is normal. 2. Left ventricular systolic function is normal, estimated at 65-70%. 3. There is mildly increased left ventricular wall thickness. 4. The left ventricular diastolic function is normal. 5. Left atrial chamber dimension is mildly enlarged. 6. Dilated inferior vena cava with <50% collapse upon inspiration consistent with elevated right atrial pressure, 15 mmHg. Left Ventricle Left ventricular chamber dimension is normal. Left ventricular systolic function is normal, estimated at 65-70%. There is mildly increased left ventricular wall thickness. The left ventricular diastolic function is normal. Right Ventricle Right ventricular chamber dimension is normal. Right ventricular systolic function is normal. Left Atria Left atrial chamber dimension is mildly enlarged. Right Atria Right atrial chamber dimension is normal. Atrial Septum Intact interatrial septum visualized by color flow imaging. Aortic Valve The aortic valve is not well visualized. Pulmonic Valve The pulmonic valve is not well visualized. Mitral Valve The mitral valve has normal leaflets. There is no mitral valve stenosis. There is trace mitral valve regurgitation. Tricuspid Valve The tricuspid valve leaflets are normal. There is no significant tricuspid valve stenosis. There is trace tricuspid valve regurgitation. Pericardium/Pleural The pericardium appears normal. There is no pericardial effusion. Inferior Vena Cava Dilated inferior vena cava with <50% collapse upon inspiration consistent with elevated right atrial pressure, 15 mmHg. Aorta The aortic root size at the sinus of Valsalva is not well visualized. Left Ventricular Outflow Tract Name Value Normal LVOT Doppler LVOT Peak Gradient 6 mmHg LVOT Mean Gradient 3 mmHg LVOT VTI 27.96 cm LVOT VTI/AV VTI Ratio 1.13 Mitral Valve Name Value Normal MV Doppler --------
--- NOTE | ~2022-02-18 | XR_ITS ---
EXAMINATION: XR chest 1V portable DATE: 02/22/2022 05:58 INDICATION: Respiratory failure. TECHNIQUE: frontal view of the chest was obtained. COMPARISON: Chest radiograph dated 02/21/2022 and 08/15/2021 FINDINGS: Diffuse chronic reticulonodular pattern throughout both lungs. Persistent more recent opacities at th e right lung base silhouetting the right hemidiaphragm. No pneumothorax or definitive pleural effusio n. The cardiomediastinal silhouette is normal. IMPRESSION: 1. Persistent opacities at the right lung base consistent with pneumonia or atelectasis superimposed over more chronic diffuse bilateral interstitial lung disease. Reviewed, dictated and finalized at location A. IMPRESSION: 1. Persistent opacities at the right lung base consistent with pneumonia or ate lectasis superimposed over more chronic diffuse bilateral interstitial lung dis ease.
--- NOTE | ~2022-02-18 | XR_ITS ---
XR chest 1V portable DATE: 02/18/2022 09:15 INDICATION: Shortness of breath. Covid-positive. TECHNIQUE: Portable upright AP views on 02/18/2022 at 0907 hours COMPARISON: 08/15/2021 AP and lateral chest 07/18/2021 2 view chest 06/03/2019 PA and lateral chest FINDINGS: There are patchy infiltrates involving particularly the right mid and both lower lung zones , increased since 07/18/2021, suggesting pneumonia or pulmonary edema superimposed upon chronic inter stitial change. Mild prominence of the minor fissure, minimal right pleural effusion and interval pulmonary vascular redistribution since 07/18/2021 suggest congestive changes. Diffuse osteopenia. IMPRESSION: Increased bilateral pulmonary infiltrates superimposed upon chronic interstitial changes since 07/18/2021, mild prominence of minor fissure, minimal right pleural effusion, avascular redistr ibution, suggesting congestive changes. Pneumonia is not excluded. Reviewed, dictated and finalized at location A. IMPRESSION: Increased bilateral pulmonary infiltrates superimposed upon chronic interstitial changes since 07/18/2021, mild prominence of minor fissure, minim al right pleural effusion, avascular redistribution, suggesting congestive awan ges. Pneumonia is not excluded.
--- NOTE | ~2022-02-18 | XR_ITS ---
EXAMINATION: XR chest PICC line DATE: 02/27/2022 15:56 INDICATION: PICC line placement TECHNIQUE: frontal view of the chest was obtained. COMPARISON: Chest radiograph dated 02/27/2022 FINDINGS: Right upper extremity peripherally inserted central venous catheter (PICC) tip at the mid superior v anatoliy cava. Mild increased interstitial and airspace opacities in the bilateral mid and lower lung zones. No pleu ral effusion or pneumothorax. The cardiomediastinal silhouette is within normal limits for AP techniq ue. IMPRESSION: 1. Slight increase in interstitial and airspace opacities in bilateral mid and lower lung zones consi stent with pneumonia or pulmonary edema superimposed over emphysema and chronic interstitial lung dis ease but appreciated on CT dated 02/18/2022. Reviewed, dictated and finalized at location B. IMPRESSION: 1. Slight increase in interstitial and airspace opacities in bilateral mid and lower lung zones consistent with pneumonia or pulmonary edema superimposed over emphysema and chronic interstitial lung disease but appreciated on CT dated .
--- NOTE | ~2022-02-18 | XR_ITS ---
EXAMINATION: XR chest 1V portable DATE: 02/20/2022 05:19 INDICATION: Respiratory failure. COVID. TECHNIQUE: frontal view of the chest was obtained. COMPARISON: Chest radiograph dated 02/19/2022 08/15/[address] dated 02/18/2022 and 06/26/2021 FINDINGS: Chronic diffuse reticulonodular pattern. No significant change in patchy airspace opacities at the ri ght lower lung zone. No pleural effusion or pneumothorax. Cardiomediastinal silhouette is normal. IMPRESSION: 1. Persistent patchy airspace opacities in the right lower lung zone consistent with pneumonia superi mposed over more diffuse bilateral chronic interstitial lung disease. Reviewed, dictated and finalized at location A. IMPRESSION: 1. Persistent patchy airspace opacities in the right lower lung zone consistent with pneumonia superimposed over more diffuse bilateral chronic interstitial l charito disease.
--- NOTE | ~2022-02-18 | XR_ITS ---
EXAMINATION: XR chest 1V portable DATE: 02/25/2022 05:51 INDICATION: COVID pneumonia. COPD. TECHNIQUE: frontal view of the chest was obtained. COMPARISON: Chest radiograph dated 02/24/2022 FINDINGS: No significant change in diffuse bilateral coarse interstitial and airspace opacities. No pleural eff usion or pneumothorax. The cardiomediastinal silhouette is normal. IMPRESSION: 1. No significant change in diffuse bilateral lung disease consistent with pneumonia superimposed ove r chronic interstitial lung disease. Reviewed, dictated and finalized at location A. IMPRESSION: 1. No significant change in diffuse bilateral lung disease consistent with pneu monia superimposed over chronic interstitial lung disease.
--- NOTE | ~2022-02-18 | XR_ITS ---
EXAMINATION: XR chest 1V portable DATE: 02/27/2022 05:50 INDICATION: COVID-19 pneumonia. Chronic obstructive pulmonary disease. TECHNIQUE: A single frontal view of the chest was obtained. COMPARISON: Chest single view 02/26/2022, chest CT 02/18/2022, chest 2 views 08/15/2021 FINDINGS: There are lucencies and architectural distortion of the lungs, consistent with emphysema. R ight lung is relatively smaller than the left, which is chronic. There are mild airspace opacities in all right lung zones and left mid and lower lung zones. No pleural effusion or pneumothorax. The hea rt size is normal. IMPRESSION: 1. Stable diffuse lung disease, consistent with pneumonia superimposed on emphysema and chronic lung disease. Reviewed, dictated and finalized at location A. IMPRESSION: 1. Stable diffuse lung disease, consistent with pneumonia superimposed on emphy sema and chronic lung disease.
--- NOTE | ~2022-02-18 | XR_ITS ---
EXAMINATION: XR chest 1V portable DATE: 02/23/2022 05:54 INDICATION: COVID 19 pneumonia. COPD. TECHNIQUE: frontal view of the chest was obtained. COMPARISON: Chest radiograph dated 02/22/2022 and 08/15/2021 FINDINGS: Diffuse chronic reticulonodular pattern throughout both lungs. Slight improvement in more recent opac ities at the bilateral lower lung zones. No pleural effusion or pneumothorax. The cardiomediastinal s ilhouette is normal. IMPRESSION: 1. Slight decrease in opacities at the bilateral lower lung zones which could represent improving pne umonia or atelectasis superimposed over an unchanged pattern of more diffuse bilateral chronic inters titial lung disease. Reviewed, dictated and finalized at location A. IMPRESSION: 1. Slight decrease in opacities at the bilateral lower lung zones which could r epresent improving pneumonia or atelectasis superimposed over an unchanged gautam isai of more diffuse bilateral chronic interstitial lung disease.
--- NOTE | ~2022-02-18 | XR_ITS ---
EXAMINATION: XR chest 1V portable INDICATION: COVID 19 pneumonia TECHNIQUE: Portable AP chest at 0515 hours COMPARISON: 02/23/2022 FINDINGS: Patchy bilateral opacities persist without significant change. There is no pleural effusion or pneumothorax. The cardiomediastinal silhouette is stable. IMPRESSION: 1. Stable diffuse lung disease, consistent with pneumonia and/or pulmonary edema. Reviewed, dictated and finalized at location A. IMPRESSION: 1. Stable diffuse lung disease, consistent with pneumonia and/or pulmonary ellis a.
--- NOTE | ~2022-02-18 | US_ITS ---
EXAMINATION: US venous doppler LE DATE: 02/18/2022 15:07 INDICATION: LE edema TECHNIQUE: Grayscale images without and with compression and Doppler images of the bilateral lower ex tremity veins were obtained. COMPARISON: 06/23/2021 FINDINGS: The right common femoral vein, profunda (deep) femoral vein, femoral vein, popliteal vein, peroneal v ein, posterior tibial veins, gastrocnemius and greater saphenous vein are patent. The left common femoral vein, profunda femoral vein, femoral vein, popliteal vein, peroneal vein, pos terior tibial veins, gastrocnemius and greater saphenous vein are patent. IMPRESSION: 1. Patent bilateral lower extremity veins. No evidence of deep venous thrombosis. Reviewed, dictated and finalized at location K. IMPRESSION: 1. Patent bilateral lower extremity veins. No evidence of deep venous thrombos is.
--- NOTE | ~2022-02-18 | XR_ITS ---
XR chest 1V portable DATE: 02/19/2022 05:56 INDICATION: Respiratory failure TECHNIQUE: Portable AP chest on 02/19/2022 at 0532 hours COMPARISON: 02/18/2022 CT thorax 02/18/2022 portable AP chest FINDINGS: There are persistent patchy bilateral pulmonary infiltrates involving the right lung diffus syed, greater in the right mid and particularly lower lung zones and lesser patchy infiltrate in the l eft mid and lower lung zones. These infiltrates are superimposed upon chronic fibrotic and cystic changes. Heart size normal. Aortic arch calcification. Diffuse osteopenia. IMPRESSION: Persistent bilateral pulmonary infiltrates, without significant change since 02/18/2022 Reviewed, dictated and finalized at location A. IMPRESSION: Persistent bilateral pulmonary infiltrates, without significant ricky nge since 02/18/2022
--- NOTE | ~2022-02-18 | XR_ITS ---
EXAMINATION: XR chest 1V portable DATE: 02/26/2022 06:41 INDICATION: COVID 19 pneumonia. COPD. TECHNIQUE: frontal view of the chest was obtained. COMPARISON: Chest radiograph dated 02/25/2022 FINDINGS: No significant change in diffuse bilateral coarse interstitial and airspace opacities. No pleural eff usion or pneumothorax. The cardiomediastinal silhouette is normal. IMPRESSION: 1. No significant change in diffuse bilateral lung disease consistent with pneumonia superimposed ove r chronic interstitial lung disease. Reviewed, dictated and finalized at location A. IMPRESSION: 1. No significant change in diffuse bilateral lung disease consistent with pneu monia superimposed over chronic interstitial lung disease.
--- NOTE | ~2022-02-18 | CT_ITS ---
EXAMINATION: CT diagnostic chest wo con DATE: 02/18/2022 11:31 INDICATION: Positive Covid test. Shortness of breath, weakness. TECHNIQUE: Computed tomography (CT) of the chest was performed without intravenous contrast. Automate d exposure control and iterative reconstruction technique were employed. Exam dose: 822.97 mGy-cm to celina exam DLP. COMPARISON: 02/18/2022 portable AP chest 06/26/2021 CT pulmonary scan FINDINGS: Scattered bilateral pulmonary calcifications and calcified hilar nodes consistent with old pulmonary granulomatous disease. Stable 7 mm medial right upper lobe pulmonary nodule (series 4 image 23). There is extensive septal t hickening and cystic change of the right lung, most pronounced in the right lower lobe. Irregular approximately 10 mm nodule in the middle lobe (image 62), previously measuring 5.5 mm on . Stable 5 mm calcified middle lobe granuloma (image 77). A couple of 3.5 mm left upper lobe peripheral nodules are noted, one calcified, likely due to old gra nulomatous disease, the other noncalcified, indeterminate 7 mm left lower lobe nodule (image 95), measuring 6 mm on 06/26/2021. Couple of additional 25 mm left lobe pulmonary nodules are noted (image 101). Minimal dependent atelectasis at the left lower lobe There is interval right lung infiltrates including patchy consolidation in the right lower lobe in pa rticular. There is patchy interstitial infiltrates involving the lingula and left lower lobe. Increased prominence of mediastinal lymph nodes may be some reactive, secondary to bilateral pneumoni a Aortic and great vessel and coronary artery calcifications. Normal heart size. No pericardial effusio n. No thoracic aortic aneurysm. Cholelithiasis Normal morphology of the adrenal glands. Calcified hepatic and splenic granulomas consistent with old granulomatous disease IMPRESSION: Patchy consolidating right lower lobe infiltrate and scattered patchy new bilateral pulm onary infiltrates since 06/26/2021 suggesting multifocal pneumonia superimposed upon chronic interstit ial and cystic lung changes Reviewed, dictated and finalized at Location A. Reviewed, dictated and finalized at location A. IMPRESSION: Patchy consolidating right lower lobe infiltrate and scattered pat paris new bilateral pulmonary infiltrates since 06/26/2021 suggesting multifocal p neumonia superimposed upon chronic interstitial and cystic lung changes
--- NOTE | ~2022-02-18 | XR_ITS ---
EXAMINATION: XR chest 1V portable DATE: 02/21/2022 05:44 INDICATION: Respiratory failure TECHNIQUE: frontal view of the chest was obtained. COMPARISON: Chest radiograph dated 02/20/2022 and 08/15/2021 FINDINGS: No significant interval change in airspace opacities in the right lower lung zone superimposed over a more diffuse chronic reticular nodular pattern throughout both lungs. No pleural effusion or pneumot horax. The cardiomediastinal silhouette is normal. Left upper extremity peripherally inserted central venous catheter (PICC) tip at the superior cavoatrial junction. IMPRESSION: 1. Persistent opacities in the right lower lung zone consistent with pneumonia or atelectasis superim posed over the more chronic diffuse bilateral interstitial lung disease. Reviewed, dictated and finalized at location A. IMPRESSION: 1. Persistent opacities in the right lower lung zone consistent with pneumonia or atelectasis superimposed over the more chronic diffuse bilateral interstitia l lung disease.
--- NOTE | 2022-02-18 08:40 | ECG_ITS ---
Measurements Intervals [place] Rate: 103 P: 61 NH: 167 QRS: 63 QRSD: 99 T: 50 QT: 303 QTc: 398 Interpretive Statements SINUS TACHYCARDIA FREQUENT VENTRICULAR PREMATURE COMPLEXES BASELINE WANDER- I, III ABNORMAL ECG Electronically Signed On 02-18-2022 15:01:51 CDT by Julien Ku D.O.
[2022-02-18 08:54] LABS: Base Excess ABG 8.2 mEq/l (+/-2.0); Carboxyhemoglobin 0.7 % THb (0-2.0); Fractional Inspired Oxygen 36 %; HCO3 ABG 37.7 mEq/l (22.0-26.0); Methemoglobin ABG 0.2 %THb (0-1.5); Oxygen Content ABG 15.3 %vol (16.0-22.0); Oxygen Saturation ABG 94.2 % (95.0-100.0); Oxyhemoglobin 93.5 % THb (90.0-100.0); PO2 ABG 83.2 mmHg (80.0-100.0); PO2 FiO2 Ratio Arterial Blood 2.31 %; Reduced Hemoglobin 5.6 %THb (0-5.0); Total Hemoglobin 11.6 g/dL (12.0-18.0)
[2022-02-18 08:57] LABS: Device NASAL CANNULA; Modified Allen's Test Pass; Site Drawn RIGHT RADIAL
[2022-02-18 08:57] LABS: Basophils Percent Auto 0.3 % (0.2-1.2); Eosinophils Percent Auto 0.1 % (0-4.4); Hematocrit 35.8 % (42.0-52.0); Hemoglobin 10.7 g/dL (14.0-18.0); Immature Granulocyte Absolute 0.07 K/mm3 (0.00-0.031); Lymphocytes Absolute Auto 0.46 K/mm3 (0.9-3.2); Lymphocytes Percent Auto 6.7 % (18.3-44.2); Mean Corpuscular HGB Conc 29.9 g/dl (32-36); Mean Corpuscular Hemoglobin 31.9 pg (26-34); Mean Corpuscular Volume 106.9 fl (80-100); Monocytes Absolute Auto 0.7 K/mm3 (0.1-0.6); Monocytes Percent Auto 10.7 % (2.6-8.5); Neutrophils Absolute Auto 5.6 K/mm3 (1.3-6.7); Neutrophils Percent Auto 81.2 % (45.5-73.1); Platelet Count Result 113 k/mm3 (150-375); Red Blood Count 3.35 M/mm3 (4.6-6.20); Red Cell Distribution Width 16.6 % (11.5-14.5); White Blood Count 6.9 K/mm3 (4.5-10.0)
--- NOTE | 2022-02-18 09:05 | ED.SOB ---
HPI - SOB/Dyspnea General Chief Complaint: Shortness of Breath/Dyspnea Stated Complaint: SOB, COVID + Time Seen by Provider: 02/18/22 08:58 History of Present Illness HPI Narrative: pt here with sob, cough h/o copd bipap and home oxygen low sats better by increasing his oxygen and positive covid yseterday when symptoms started all family sick with same, no vaccine did get flu vaccine no other symptoms Related Data Home Medications Medication Instructions Recorded Confirmed aspirin 81 mg PO DAILY 11/05/19 11/24/21 atorvastatin 40 mg PO DAILY 06/22/21 11/24/21 clopidogrel 75 mg PO DAILY 06/22/21 11/24/21 fluoxetine 10 mg PO BID 06/22/21 11/24/21 hydrochlorothiazide 12.5 mg PO DAILY 06/22/21 11/24/21 lisinopril 20 mg PO DAILY 06/22/21 11/24/21 phenytoin sodium extended 100 mg PO Q8H 06/22/21 11/24/21 azithromycin [Zithromax] 500 mg PO QMWF 07/18/21 11/24/21 bicalutamide 50 mg PO DAILY 07/18/21 11/24/21 furosemide 20 mg PO DAILY 07/18/21 11/24/21 omeprazole 40 mg PO DAILY 07/18/21 11/24/21 Allergies Allergy/AdvReac Type Severity Reaction Status Date / Time No Known Allergies Allergy Verified 11/24/21 11:24 Review of Systems Review of Systems: CONSTITUTIONAL: Denies fever, chills, or sweats. EYES: Denies visual changes, redness, or discharge. ENT: Denies rhinorrhea, congestion, sore throat, or otalgia. CARDIOVASCULAR: Denies chest pain, palpitations, or edema. RESPIRATORY: has cough/sob GASTROINTESTINAL: Denies abdominal pain, nausea, vomiting, or diarrhea. GENITOURINARY: Denies dysuria or hematuria. SKIN: Denies rash or itching. MUSCULOSKELETAL: Denies back pain, joint pain, or myalgia. NEUROLOGIC: Denies headache, numbness, or weakness. PSYCHIATRIC: Denies anxiety or depression. [facility] Past Medical History Medical History Bronchiectasis Apparently uses vibratory vest b.i.d. for [address] Wang. Chronic back pain Colon cancer screening COPD (chronic obstructive pulmonary disease) Diastolic dysfunction Echocardiogram in November 06, 2019 showed mild increase in LV wall thickness, grossly normal LV wall motion, ejection fraction estimated > 70%, grade 1 diastolic dysfunction, and mild tricuspid valve regurgitation. Dysphagia Hyperlipidemia Hypertension Macrocytic anemia Obstructive sleep apnea On home O2 PAD (peripheral artery disease) Prostate cancer Status post radiation. On anti androgens. Secondary pulmonary hypertension Noted on echocardiogram 11/06/2019 with an estimated peak RVSP of 70 millimeters of mercury. Seizure disorder Surgical History Surgical History H/O eye surgery Left eye History of AAA (abdominal aortic aneurysm) repair History of vascular surgery Stents to bilateral lower extremities. Family History Family History Sibling Diabetes mellitus Mother Heart disease Social History Social History Social History: The patient lives with his in [place]. They have 4 children. He designates his , Jeanette, as his surrogate decision maker. He is currently listed as a full code at the urging of his . He has smoked for 55 years, smoking as much as 2 packs of cigarettes per day for 10 years. It is unclear when he actually has quit smoking. No alcohol or drug use. Code status full code Smoking packs per day: 1 Smoking cigarettes per day: 20.0 Years smoked: 60 Smoking pack-years: 60.00 Smoking status: Former smoker Tobacco type: cigarettes Alcohol intake: unknown Substance use: unknown Substance use type: does not use Gender identity (if verbalized by the patient): Male Spiritual care concerns: No Agree to blood products: Yes Exam Narrative: APPEARANCE: Well appearing, no pain in distress, well-nouris
[2022-02-18 09:09] LABS: INR 1.1; Prothrombin Time 13.7 Seconds (11.1-14.7)
[2022-02-18 09:10] LABS: Partial Thromboplastin Time 35.1 SECONDS (22.3-36.8)
[2022-02-18] MEDS: ALBUTEROL SULFATE NEB 2.5 MG/3 ML INH 5 MG INHALATION (09:11)
[2022-02-18] MEDS: IPRATROPIUM BR 0.02% INH SOLN 0.5 MG/2.5 ML VIAL INHALATION ×2 (09:12→20:29)
[2022-02-18 09:18] LABS: Lactic Acid Reflex 0.8 mmol/L (0.7-2.0)
[2022-02-18 09:22] LABS: Hypochromasia 1+ (NORMAL); Platelet Estimate Decreased (Adequate)
[2022-02-18 09:23] LABS: Stomatocytes 1+ (NORMAL)
[2022-02-18 09:27] LABS: Alanine Aminotransferase 20 U/L (6-50); Albumin Level 3.5 g/dL (3.5-5.1); Alkaline Phosphatase 204 U/L (38-126); Anion Gap 5 mmol/L (8-16); Aspartate Amino Transferase 46 U/L (17-59); Bilirubin,Total 0.4 mg/dL (0.2-1.3); Blood Urea Nitrogen 44 mg/dL (9-20); Calcium 7.5 mg/dL (8.4-10.2); Carbon Dioxide 39 mmol/L (22-30); Chloride 93 mmol/L (98-107); Estimated CRCL calculation 56 ml/min; Estimated Glomerular Filt Rate 55; Glucose 109 mg/dL (65-110); Potassium 4.2 mmol/L (3.4-5.0); Sodium 137 mmol/L (137-145)
[2022-02-18 09:30] LABS: CRP 21.1 mg/dL (<1.0)
[2022-02-18 10:25] LABS: NT Pro B Type Natriuretic Pept 207 pg/mL (5-100)
[2022-02-18 10:59] LABS: Alveolar/Arterial O2 Gradient 392.3 mmHg; Base Excess ABG 7.3 mEq/l (+/-2.0); Fractional Inspired Oxygen 80 %; HCO3 ABG 36.7 mEq/l (22.0-26.0); Oxygen Content ABG 15.6 %vol (16.0-22.0); Oxygen Saturation ABG 95.7 % (95.0-100.0); Oxyhemoglobin 95.2 % THb (90.0-100.0); PO2 ABG 92.7 mmHg (80.0-100.0); PO2 FiO2 Ratio Arterial Blood 1.16 %; Total Hemoglobin 11.6 g/dL (12.0-18.0)
[2022-02-18 11:00] LABS: Device NON-INVASIVE VENT; Modified Allen's Test Pass; PCO2 ABG 81.3 mmHg (35.0-45.0); Site Drawn RIGHT RADIAL; pH ABG 7.272 (7.350-7.450)
[2022-02-18 11:01] LABS: Non-Invasive Expiratory Pressure 8 CMH2O; Non-Invasive Inspiratory Pressure 18 CMH2O; Non-Invasive Vent Rate 20 /MIN
[2022-02-18 11:22] LABS: Influenza A QL RT-PCR Negative (Negative); Influenza B QL RT-PCR Negative (Negative); SARS-CoV-2 RNA PCR Positive
--- NOTE | 2022-02-18 11:40 | WPDCNINT ---
Assessment and Plan Assessment and plan (1) Acute on chronic respiratory failure with hypoxia and hypercapnia: Code(s): J96.21 - Acute and chronic respiratory failure with hypoxia; J96.22 - Acute and chronic respiratory failure with hypercapnia Status: Acute Assessment and Plan: Multifactorial Acute over chronic Respiratory failure secondary to severe baseline COPD, component of heart failure, COVID-19 pneumonia, and possible bacterial infection Patient placed on BiPAP and settings reviewed Repeat ABG reviewed. Will change to AVAPS Wean FiO2 Lasix 40 mg IV x1 Dexamethasone, bronchodilators, remdesivir Check CT chest without contrast Check echo Check procalcitonin Patient grew Pseudomonas on his last admission pansensitive hence will treat empiric antibiotics with cefepime and azithromycin Since he has a mixed picture I will hold on tocilizumab until I review CT scan and see if changes are consistent with COVID-19 pneumonia (2) Pneumonia due to COVID-19 virus: Code(s): U07.1 - COVID-19; J12.82 - Pneumonia due to coronavirus disease 2018 Status: Acute Assessment and Plan: See above (3) COPD exacerbation: Code(s): J44.1 - Chronic obstructive pulmonary disease with (acute) exacerbation Status: Acute Assessment and Plan: See above PFT's 01/17/22 There is a very severe obstructive abnormality without significant improvement after inhaling a single dose of albuterol. The increase in residual volume is consistent with air trapping from an obstructive abnormality. The diffusing capacity unadjusted for hemoglobin and carboxyhemoglobin is severely decreased and remains moderately decreased when adjusted for alveolar volume. (4) Community acquired pneumonia: Code(s): J18.9 - Pneumonia, unspecified organism Status: Acute Assessment and Plan: See above (5) Congestive heart failure: Code(s): I50.9 - Heart failure, unspecified Status: Acute Assessment and Plan: Patient has lower extremity edema and chest x-ray suggestive of pulmonary edema Patient likely has cor pulmonale from COPD Check echocardiogram Lasix IV x1 (6) Seizure disorder: Code(s): G40.909 - Epilepsy, unspecified, not intractable, without status epilepticus Status: Acute Assessment and Plan: Continue phenytoin (7) Hypertension: Code(s): I10 - Essential (primary) hypertension Status: Acute Assessment and Plan: Blood pressure in controlled range at this time. Monitor Hold p.o. meds Additional Plan DVT prophylaxis -Lovenox Stress ulcer prophylaxis -PPI Nutrition -NPO at this Code Status -I discussed with patient in detail about current findings and current treatment plan. He requests to be DNR he does not want CPR or resuscitation in the event of cardiac arrest but he is agreeable to intubation for respiratory failure. He states that he is unsure about intubation also but will give it a thought as of now if his respiratory status deteriorates he is agreeable for intubation and mechanical ventilation Total Critical Care Time - 40 minutes Due to a high probability of clinically significant, life threatening deterioration, the patient required my highest level of preparedness to intervene emergently and I personally spent this critical care time directly and personally managing the patient. This critical care time included obtaining a history; examining the patient; pulse oximetry; ordering and review of studies; arranging urgent treatment with development of a management plan; evaluation of patient's response to treatment; frequent reassessment; and discussions with other providers. It was exclusive of separately billable procedures and treating other patients and teaching time. Please see Assessment and Plan section and the rest of the note for further information on patient assessment and treatment Airline Pilot/First Officer Consult Note Consult date: 02/18/22 HPI:
[2022-02-18] MEDS: ENOXAPARIN 40 MG/0.4 ML SYRINGE SUB-Q (11:50)
[2022-02-18] MEDS: PANTOPRAZOLE SODIUM IV 40 MG VIAL IV PUSH (11:51)
[2022-02-18] MEDS: FUROSEMIDE INJ 40 MG/4 ML VIAL IV PUSH (12:00)
[2022-02-18] MEDS: REMDESIVIR 200 MG/NS 250 ML 200 MG/250 ML BAG 250 MG IVPB (12:06)
--- NOTE | 2022-02-18 12:10 | ADMGEN ---
This patient, Quentin Zavaleta, was admitted to Intensive Care Unit-7 at 1131. Patient/family oriented to hospital policies and general routines including ID bracelet, bed and alarms, visiting hours, pain management, procedures, bathroom and other care routines, personal items, smoking policy, room service/diet, and visiting hours. Information on how to activate the Rapid Response Team has been discussed. Patient/Family are encouraged to report perceived risks to care and to ask questions if they do not understand what they are told or what they should do.
[2022-02-18 12:34] LABS: D Dimer 1.83 ug/mL (<0.48)
[2022-02-18 13:12] LABS: Procalcitonin 0.5 ng/mL
[2022-02-18] MEDS: PERFLUTREN LIPID MICROSPHERES 1.5 ML VIAL DILUTED TO 10 ML TOTAL VOLUME IV PUSH (13:31)
--- NOTE | 2022-02-18 15:15 | PM.IMHP ---
H&P: HPI History of Present Illness Date/Time: 02/18/22 15:15 <Maribel Ordaz PA-C - Last Filed: 02/18/22 23:33> Chief Complaint: Shortness of breath. <Maribel Ordaz PA-C - Last Filed: 02/18/22 23:33> Narrative: This is a pleasant 71-year-old male with chronic hypoxic and hypercarbic respiratory failure on home oxygen, COPD, sleep apnea, severe pulmonary hypertension, hypertension, peripheral vascular disease, and several other comorbidities who presented to the emergency department via EMS from home for evaluation of shortness of breath. He has not felt well for the past 3 days with chills, fever, body aches, poor appetite, cough productive of clear and occasionally oneill sputum, and increasing shortness of breath from baseline. His daughter was recently infected with COVID and the patient tested positive on a home kit 2 days ago. Family members wanted him to come to the ER yesterday however he refused though did acquiesce this morning as he was extremely short of breath. He was found to have acute on chronic hypoxic and hypercarbic respiratory failure and was started on BiPAP. SARS-CoV-2 by PCR was positive and he has since been started on dexamethasone and remdesivir. At the time my evaluation he is resting comfortably on BiPAP and he has no specific complaints. He denies headache, sore throat, chest pain, pleuritic pain, palpitations, vomiting, and diarrhea. <Maribel Ordaz PA-C - Last Filed: 02/18/22 23:33> Review of Systems Review of Systems: Twelve systems were reviewed and are negative except for as per HPI. <Maribel Ordaz PA-C - Last Filed: 02/18/22 23:33> [facility] Past Medical History Medical History: Medical History Bronchiectasis Previously used a vibratory vest b.i.d. for 30 minutes. Chronic back pain Chronic obstructive pulmonary disease Chronic respiratory failure with hypoxia and hypercapnia 3 L with rest and 6 L with ambulation. BiPAP at nighttime, 16/6 with 4 L bleed in. Diastolic dysfunction Echocardiogram in November 06, 2019 showed mild increase in LV wall thickness, grossly normal LV wall motion, ejection fraction estimated > 70%, grade 1 diastolic dysfunction, and mild tricuspid valve regurgitation. Hyperlipidemia Hypertension Macrocytic anemia Obstructive sleep apnea Peripheral arterial disease Prostate cancer Status post radiation. On anti androgens. Secondary pulmonary hypertension Noted on echocardiogram 11/06/2019 with an estimated peak RVSP of 70 millimeters of mercury. Seizure disorder <Maribel Ordaz PA-C - Last Filed: 02/18/22 23:33> Surgical History Surgical History: Surgical History History of abdominal aortic aneurysm repair History of colonoscopy with polypectomy Diverticulosis, internal hemorrhoids, and benign colon and rectal polyps. History of esophagogastroduodenoscopy (02/2021) Esophageal ring and hiatal hernia. History of vascular surgery Stents to bilateral lower extremities. <Maribel Ordaz PA-C - Last Filed: 02/18/22 23:33> Family History Family History: Family History Sibling Diabetes mellitus Mother Heart disease <Maribel Ordaz PA-C - Last Filed: 02/18/22 23:33> Social History Social History: Social History Social History: Lives with his in [place]. They have 4 children. Smoker for 55 years. Two packs a day for 10 years, 1 pack thereafter. He quit for good approximately 4 years ago. No alcohol or illicit substance abuse. Surrogate decision maker: Jeanette Zavaleta, . Code status: No CPR, may consider intubation. Spiritual care concerns: No Agree to blood products: Yes <AMELIA Fitch Last Filed: 02/18/22 23:33> Meds Home Medications and Allergies
[2022-02-18] MEDS: CLOPIDOGREL BISULFATE 75 MG TABLET PO (15:53)
[2022-02-18] MEDS: PHENYTOIN SODIUM 100 MG EXTENDED RELEASE CAP PO (15:53)
[2022-02-18] MEDS: ASPIRIN 325 MG TABLET PO (15:54)
[2022-02-18] MEDS: ATORVASTATIN 40 MG TABLET PO (15:54)
[2022-02-18 16:18] LABS: Glucose Point of Care 150 mg/dl (65-105)
[2022-02-18 16:23] LABS: Glucose Point of Care 120 mg/dl (65-105)
[2022-02-18 17:17] LABS: Add Urine Microscopic? YES; Appearance Urine Clear (Clear); Bilirubin Urine Negative (Negative); Blood Urine Negative (Negative); Color Urine Yellow (Yellow); Glucose Urine UA Negative (Negative); Ketones Urine Negative (Negative); Leukocyte Esterase Ur Negative LEU/UL (Negative); Nitrate Urine Negative (Negative); Protein Urine 1+ mg/dL (Negative); Urobilinogen Urine 0.2 mg/dL (<2.0); pH Urine 5.5 (5.0-9.0)
[2022-02-18 17:32] LABS: Mucus Urine Rare /lpf; WBC Urine 0-3 /hpf
[2022-02-18] MEDS: ALBUTEROL SULFATE NEB 2.5 MG/3 ML INH INHALATION (20:30)
[2022-02-19] VITALS (26 sets, daily range): BP systolic 94–134; BP diastolic 51–66; PULSE 61–99; RESP 14–37; TEMP 36.2–37.7; O2SAT 89–100
[2022-02-19 01:26] LABS: Glucose Point of Care 87 mg/dl (65-105)
[2022-02-19] MEDS: ALBUTEROL SULFATE NEB 2.5 MG/3 ML INH INHALATION ×4 (02:09→20:20)
[2022-02-19] MEDS: IPRATROPIUM BR 0.02% INH SOLN 0.5 MG/2.5 ML VIAL INHALATION ×4 (02:09→20:20)
[2022-02-19 04:50] LABS: Basophils Percent Auto 0.3 % (0.2-1.2); Hematocrit 35.8 % (42.0-52.0); Hemoglobin 10.9 g/dL (14.0-18.0); Immature Granulocyte Absolute 0.06 K/mm3 (0.00-0.031); Immature Granulocyte Percent A 0.8 % (0-0.5); Lymphocytes Absolute Auto 0.59 K/mm3 (0.9-3.2); Lymphocytes Percent Auto 8.2 % (18.3-44.2); Mean Corpuscular HGB Conc 30.4 g/dl (32-36); Mean Corpuscular Hemoglobin 32.3 pg (26-34); Mean Corpuscular Volume 106.2 fl (80-100); Mean Platelet Volume 10.1 fl (7.4-10.4); Monocytes Absolute Auto 0.4 K/mm3 (0.1-0.6); Monocytes Percent Auto 5.7 % (2.6-8.5); Neutrophils Absolute Auto 6.1 K/mm3 (1.3-6.7); Platelet Count Result 102 k/mm3 (150-375); Red Blood Count 3.37 M/mm3 (4.6-6.20); Red Cell Distribution Width 16.9 % (11.5-14.5); White Blood Count 7.2 K/mm3 (4.5-10.0)
[2022-02-19 05:01] LABS: Prothrombin Time 13.1 Seconds (11.1-14.7)
[2022-02-19 05:10] LABS: Alanine Aminotransferase 20 U/L (6-50); Alkaline Phosphatase 188 U/L (38-126); Aspartate Amino Transferase 48 U/L (17-59); Bilirubin,Total 0.3 mg/dL (0.2-1.3); Blood Urea Nitrogen 42 mg/dL (9-20); Calcium 7.6 mg/dL (8.4-10.2); Carbon Dioxide > 40 mmol/L (22-30); Chloride 94 mmol/L (98-107); Estimated CRCL calculation 60 ml/min; Estimated Glomerular Filt Rate 60; Glucose 88 mg/dL (65-110); Phenytoin Dilantin 7 ug/mL (10-20); Potassium 4.3 mmol/L (3.4-5.0); Sodium 137 mmol/L (137-145)
[2022-02-19 05:14] LABS: Stomatocytes 1+ (NORMAL)
[2022-02-19 05:15] LABS: Poikilocytosis 1+ (NORMAL)
[2022-02-19 05:26] LABS: Lactate Dehydrogenase 464 U/L (313-618)
[2022-02-19 05:32] LABS: Alveolar/Arterial O2 Gradient 190.9 mmHg; Base Excess ABG 9.9 mEq/l (+/-2.0); Carboxyhemoglobin 0.4 % THb (0-2.0); Fractional Inspired Oxygen 50 %; HCO3 ABG 40.1 mEq/l (22.0-26.0); Methemoglobin ABG 0.2 %THb (0-1.5); Oxygen Content ABG 14.8 %vol (16.0-22.0); PO2 ABG 62.9 mmHg (80.0-100.0); PO2 FiO2 Ratio Arterial Blood 1.26 %; Reduced Hemoglobin 10.4 %THb (0-5.0); Total Hemoglobin 11.8 g/dL (12.0-18.0)
[2022-02-19 05:38] LABS: Modified Allen's Test Pass; Oxygen Saturation ABG 87.1 % (95.0-100.0); PCO2 ABG 91.3 mmHg (35.0-45.0); Site Drawn LEFT RADIAL
[2022-02-19 05:39] LABS: Device NON-INVASIVE VENT; Non-Invasive Expiratory Pressure 8 CMH2O; Non-Invasive Vent Rate 20 /MIN
[2022-02-19 05:40] LABS: Non-Invasive Inspiratory Pressure 30 CMH2O
--- NOTE | 2022-02-19 08:50 | WPDINTPN ---
Progress Note: A&P Assessment and Plan (1) Acute on chronic respiratory failure with hypoxia and hypercapnia: Code(s): J96.21 - Acute and chronic respiratory failure with hypoxia; J96.22 - Acute and chronic respiratory failure with hypercapnia Status: Acute Assessment and Plan: Multifactorial Acute over chronic Respiratory failure secondary to severe baseline COPD, component of heart failure, COVID-19 pneumonia, and possible bacterial infection Patient placed on BiPAP and settings reviewed Repeat ABG done this morning reviewed and shows some worsening. I reposition the patient and have him set up which led to increase in volumes on the BiPAP Increased FiO2 and titrate to keep his sat above 90 I will repeat Lasix 40 mg IV x1 this morning Continue Dexamethasone, bronchodilators, remdesivir CT chest without contrast IMPRESSION: Patchy consolidating right lower lobe infiltrate and scattered patchy new bilateral pulmonary infiltrates since 06/26/2021 suggesting multifocal pneumonia superimposed upon chronic interstitial and cystic lung change Pending echo Procalcitonin was 0.5 Patient grew Pseudomonas on his last admission pansensitive hence will continue empiric antibiotics with cefepime and azithromycin Since he has a mixed picture and CT is not correct sticks for a COVID-19 pneumonia I will hold on tocilizumab until discussed with pulmonary which has been consulted (2) Pneumonia due to COVID-19 virus: Code(s): U07.1 - COVID-19; J12.82 - Pneumonia due to coronavirus disease 2018 Status: Acute Assessment and Plan: See above (3) COPD exacerbation: Code(s): J44.1 - Chronic obstructive pulmonary disease with (acute) exacerbation Status: Acute Assessment and Plan: See above PFT's 01/17/22 There is a very severe obstructive abnormality without significant improvement after inhaling a single dose of albuterol. The increase in residual volume is consistent with air trapping from an obstructive abnormality. The diffusing capacity unadjusted for hemoglobin and carboxyhemoglobin is severely decreased and remains moderately decreased when adjusted for alveolar volume. (4) Community acquired pneumonia: Code(s): J18.9 - Pneumonia, unspecified organism Status: Acute Assessment and Plan: See above (5) Congestive heart failure: Code(s): I50.9 - Heart failure, unspecified Status: Acute Assessment and Plan: Patient has lower extremity edema and chest x-ray suggestive of pulmonary edema Patient likely has cor pulmonale from COPD Check echocardiogram Continue Lasix (6) Seizure disorder: Code(s): G40.909 - Epilepsy, unspecified, not intractable, without status epilepticus Status: Acute Assessment and Plan: Continue phenytoin (7) Hypertension: Code(s): I10 - Essential (primary) hypertension Status: Acute Assessment and Plan: Blood pressure in controlled range at this time. Monitor Hold p.o. meds Additional Plan DVT prophylaxis -Lovenox Stress ulcer prophylaxis -PPI Nutrition -NPO at this Code Status -02/18 I discussed with patient in detail about current findings and current treatment plan. He requests to be DNR he does not want CPR or resuscitation in the event of cardiac arrest but he is agreeable to intubation for respiratory failure. He states that he is unsure about intubation also but will give it a thought as of now if his respiratory status deteriorates he is agreeable for intubation and mechanical ventilation 02/19 -patient mentioned to the nurse that he is not sure whether he would like to go on a ventilator. I again spoke to patient this morning and mentioned possibility of be needing intubation and mechanical ventilation. He asked me questions regarding what ventilator is and how it works which I answered he told me that he does not think that he would want to go on a ventilator. I explained him that if his respirato
[2022-02-19] MEDS: FUROSEMIDE INJ 40 MG/4 ML VIAL IV PUSH ×2 (09:12→16:07)
[2022-02-19] MEDS: ENOXAPARIN 40 MG/0.4 ML SYRINGE SUB-Q (09:13)
[2022-02-19] MEDS: PANTOPRAZOLE SODIUM IV 40 MG VIAL IV PUSH (09:14)
[2022-02-19] MEDS: TOPIRAMATE 25 MG TABLET PO (09:15)
[2022-02-19] MEDS: ASPIRIN 325 MG TABLET PO (09:16)
[2022-02-19] MEDS: PHENYTOIN SODIUM 100 MG EXTENDED RELEASE CAP PO ×3 (09:16→16:10)
[2022-02-19] MEDS: REMDESIVIR 100 MG/NS 250 ML 100 MG/250 ML BAG 250 MG IVPB (10:02)
[2022-02-19] MEDS: ATORVASTATIN 40 MG TABLET PO (10:02)
[2022-02-19] MEDS: CLOPIDOGREL BISULFATE 75 MG TABLET PO (10:02)
[2022-02-19 10:11] LABS: Glucose Point of Care 157 mg/dl (65-105)
--- NOTE | 2022-02-19 11:48 | PM.CNPUL ---
Assessment and Plan Assessment and plan (1) COVID-19: Code(s): U07.1 - COVID-19 Status: Acute Assessment and Plan: He has severe COVID pneumonia with underlying severe COPD. He has worsening of his underlying hypercapnic hypoxemic respiratory failure. He is currently receiving standard of care including dexamethasone in remdesivir. I agree with not treating with tocilizumab. The patient is able to sit in a chair, has good cognition at this time. He is requiring significant support using NPPV AVAPS mode with FiO2 0.50; considering uses oxygen at home this is not too bad. I recommend continuing his current COVID treatment, management of COPD using short-acting bronchodilator, inhaled corticosteroid, DVT prophylaxis and monitoring of his labs. son he states that he is not to be intubated which is reasonable given his severe underlying medical conditions. The case was discussed with Dr King. (2) Chronic obstructive pulmonary disease: Code(s): J44.9 - Chronic obstructive pulmonary disease, unspecified Status: Acute Assessment and Plan: Severe emphysema, last pulmonary function test January 17 showed an FEV1 of 0.76 L, 25% predicted with severe air trapping RV 182%, TLC 100% and DLCO 24% predicted (3) Acute on chronic respiratory failure with hypoxia and hypercapnia: Code(s): J96.21 - Acute and chronic respiratory failure with hypoxia; J96.22 - Acute and chronic respiratory failure with hypercapnia Status: Acute Assessment and Plan: See above History of Present Illness History of Present Illness Consult date: 02/20/22 Requesting physician: Zana King MD Reason for consult: pneumonia (with COVID, acute on chronic hypercapnic hypoxemic respiratory failure) Chief complaint: COVID Pneumonia, COPD Narrative: NEW CONSULT: Quentin Zavaleta is a 71 year old man, ex-smoker, with centrilobular emphysema with eosinophilia noted on multiple occasions, bronchiectasis who takes on azithromycin 3 times a week, chronic hypercapnic hypoxemic respiratory failure on O2 in the day and BiPAP at night; has failed Trilogy with AVAPS AE settings and Astral in late 2020; severe secondary pulmonary hypertension; he is followed in our pulmonary clinic; he presented with increased shortness of breath, had a COVID test at home that was positive 2 days prior to admission. His COVID PCR Was (+) February 18 on admission. He was started on 10 mg dexamethasone now on 6 mg a day and remdesivir, 200 mg yesterday and 100 mg a day for 5 day. Treatment also includes empiric antibiotics - azithromycin, Cefepime. 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 PMH : HTN, PAD, prostate cancer s/p radiation, seizure disorder, FERNANDO, COPD -chronic hypercarbic and hypoxemic respiratory failure on 3 L rest and 6 L with ambulation, BiPAP rate 12, 16/6 with 4 L bleed in, varicose and cystic bronchiectasis on azithromycin TIW, obstructive sleep apnea with an AHI of 32 on 12/16/2018 and a CPAP titration on 07/22/2019 demonstrated he needed BiPAP 22/18 with 6 L bleed in resulting in an AHI of 1.2, severe pulmonary hypertension with an estimated pulmonary arterial systolic pressure of 70 and normal right ventricular size and function and normal right atrial size and function on echo 11/06/2019. Chronic back pain Prior hospital admissions: *07/18/21 to 07/21/21; discharged on a home noninvasive carlos
[2022-02-20] VITALS (27 sets, daily range): BP systolic 111–136; BP diastolic 41–84; PULSE 64–92; RESP 19–90; TEMP 36.2–37.1; O2SAT 90–100
[2022-02-20 00:13] LABS: Glucose Point of Care 73 mg/dl (65-105)
[2022-02-20] MEDS: IPRATROPIUM BR 0.02% INH SOLN 0.5 MG/2.5 ML VIAL INHALATION ×4 (02:30→20:19)
[2022-02-20] MEDS: ALBUTEROL SULFATE NEB 2.5 MG/3 ML INH INHALATION ×4 (02:30→20:19)
[2022-02-20 04:25] LABS: Hematocrit 37.2 % (42.0-52.0); Hemoglobin 11.1 g/dL (14.0-18.0); Immature Platelet Fraction Pct 3.1 % (0.9-11.2); Mean Corpuscular HGB Conc 29.8 g/dl (32-36); Mean Corpuscular Hemoglobin 31.7 pg (26-34); Mean Corpuscular Volume 106.3 fl (80-100); Mean Platelet Volume 10.1 fl (7.4-10.4); Platelet Count Result 117 k/mm3 (150-375); Red Cell Distribution Width 17.1 % (11.5-14.5); White Blood Count 7.6 K/mm3 (4.5-10.0)
[2022-02-20 04:33] LABS: Prothrombin Time 12.7 Seconds (11.1-14.7)
[2022-02-20 04:36] LABS: Alanine Aminotransferase 19 U/L (6-50); Alkaline Phosphatase 180 U/L (38-126); Aspartate Amino Transferase 50 U/L (17-59); Bilirubin,Total 0.3 mg/dL (0.2-1.3); Blood Urea Nitrogen 50 mg/dL (9-20); Calcium 7.7 mg/dL (8.4-10.2); Carbon Dioxide > 40 mmol/L (22-30); Chloride 93 mmol/L (98-107); Estimated CRCL calculation 55 ml/min; Estimated Glomerular Filt Rate 55; Glucose 103 mg/dL (65-110); Potassium 4.7 mmol/L (3.4-5.0); Sodium 137 mmol/L (137-145)
[2022-02-20 04:56] LABS: Band Neutrophils Percent 7 % (0-6); Monocytes Percent Manual 8 % (3-9); Neutrophils Absolute Manual 6.38 K/mm3 (1.3-6.7); Neutrophils Percent Manual 77 % (46-73); Platelet Estimate Adequate (Adequate); Total Cells Counted 100
[2022-02-20 05:50] LABS: Alveolar/Arterial O2 Gradient 249.9 mmHg; Base Excess ABG 12.4 mEq/l (+/-2.0); Carboxyhemoglobin 0.1 % THb (0-2.0); Fractional Inspired Oxygen 60 %; HCO3 ABG 43.6 mEq/l (22.0-26.0); Methemoglobin ABG 0.2 %THb (0-1.5); Oxygen Content ABG 15.4 %vol (16.0-22.0); Oxyhemoglobin 90.2 % THb (90.0-100.0); PO2 ABG 64.6 mmHg (80.0-100.0); PO2 FiO2 Ratio Arterial Blood 1.08 %; Reduced Hemoglobin 9.5 %THb (0-5.0); Total Hemoglobin 12.1 g/dL (12.0-18.0)
[2022-02-20 05:54] LABS: Modified Allen's Test Pass; Oxygen Saturation ABG 87.2 % (95.0-100.0); Site Drawn RIGHT RADIAL; pH ABG 7.245 (7.350-7.450)
[2022-02-20 05:55] LABS: Device NON-INVASIVE VENT
[2022-02-20 05:57] LABS: Non-Invasive Expiratory Pressure 8 CMH2O; Non-Invasive Vent Rate 20 /MIN
[2022-02-20 06:09] LABS: Glucose Point of Care 163 mg/dl (65-105)
[2022-02-20] MEDS: PANTOPRAZOLE SODIUM IV 40 MG VIAL IV PUSH (08:46)
[2022-02-20] MEDS: ENOXAPARIN 40 MG/0.4 ML SYRINGE SUB-Q (08:46)
[2022-02-20] MEDS: ATORVASTATIN 40 MG TABLET PO (08:46)
[2022-02-20] MEDS: CLOPIDOGREL BISULFATE 75 MG TABLET PO (08:46)
[2022-02-20] MEDS: TOPIRAMATE 25 MG TABLET PO (08:46)
[2022-02-20] MEDS: PHENYTOIN SODIUM 100 MG EXTENDED RELEASE CAP 200 MG PO ×2 (08:46→20:35)
--- NOTE | 2022-02-20 08:46 | WPDINTPN ---
Progress Note: A&P Assessment and Plan (1) Acute on chronic respiratory failure with hypoxia and hypercapnia: Code(s): J96.21 - Acute and chronic respiratory failure with hypoxia; J96.22 - Acute and chronic respiratory failure with hypercapnia Status: Acute Assessment and Plan: Multifactorial Acute over chronic Respiratory failure secondary to severe baseline COPD, component of heart failure, COVID-19 pneumonia, and possible bacterial infection Patient has been on AVAPS since admission Chest x-ray reviewed Repeat ABG done this morning reviewed and shows worsening I again position the patient and changed EPAP. repeat ABG in 30-45 minutes. ABG does not show improvement to proceed with intubation And mechanical ventilation. currently on 60% FiO2 Continue Lasix Continue Dexamethasone, bronchodilators, remdesivir CT chest without contrast IMPRESSION: Patchy consolidating right lower lobe infiltrate and scattered patchy new bilateral pulmonary infiltrates since 06/26/2021 suggesting multifocal pneumonia superimposed upon chronic interstitial and cystic lung change Echo reviewed Procalcitonin was 0.5 Patient grew Pseudomonas on his last admission pansensitive hence will continue empiric antibiotics with cefepime and azithromycin Since he has a mixed picture and CT is not consistent with classical picture for a COVID-19 pneumonia, I have not administered tocilizumab. Pulmonary consulted and discussed case with Dr. Powell. Recommends continuing current treatment (2) Pneumonia due to COVID-19 virus: Code(s): U07.1 - COVID-19; J12.82 - Pneumonia due to coronavirus disease 2019 Status: Acute Assessment and Plan: See above (3) COPD exacerbation: Code(s): J44.1 - Chronic obstructive pulmonary disease with (acute) exacerbation Status: Acute Assessment and Plan: See above PFT's 01/17/22 There is a very severe obstructive abnormality without significant improvement after inhaling a single dose of albuterol. The increase in residual volume is consistent with air trapping from an obstructive abnormality. The diffusing capacity unadjusted for hemoglobin and carboxyhemoglobin is severely decreased and remains moderately decreased when adjusted for alveolar volume. (4) Community acquired pneumonia: Code(s): J18.9 - Pneumonia, unspecified organism Status: Acute Assessment and Plan: See above (5) Congestive heart failure: Code(s): I50.9 - Heart failure, unspecified Status: Acute Assessment and Plan: Patient has lower extremity edema and chest x-ray suggestive of pulmonary edema Patient likely has cor pulmonale from COPD echocardiogram shows dilated IVC with volume overload Continue Lasix (6) Seizure disorder: Code(s): G40.909 - Epilepsy, unspecified, not intractable, without status epilepticus Status: Acute Assessment and Plan: Continue phenytoin but increase dose to 200 mg q.12 hours (7) Hypertension: Code(s): I10 - Essential (primary) hypertension Status: Acute Assessment and Plan: Blood pressure in controlled range at this time. Monitor Hold p.o. meds Additional Plan DVT prophylaxis -Lovenox Stress ulcer prophylaxis -PPI Nutrition -NPO at this Code Status -02/18 I discussed with patient in detail about current findings and current treatment plan. He requests to be DNR he does not want CPR or resuscitation in the event of cardiac arrest but he is agreeable to intubation for respiratory failure. He states that he is unsure about intubation also but will give it a thought as of now if his respiratory status deteriorates he is agreeable for intubation and mechanical ventilation 02/19 -patient mentioned to the nurse that he is not sure whether he would like to go on a ventilator. I again spoke to patient this morning and mentioned possibility of be needing intubation and mechanical ventilation. He asked me questions re
[2022-02-20] MEDS: ASPIRIN 325 MG TABLET PO (08:48)
[2022-02-20 10:08] LABS: Alveolar/Arterial O2 Gradient 232.2 mmHg; Base Excess ABG 9.4 mEq/l (+/-2.0); Fractional Inspired Oxygen 55 %; HCO3 ABG 39.5 mEq/l (22.0-26.0); Oxygen Content ABG 15.1 %vol (16.0-22.0); Oxyhemoglobin 88.7 % THb (90.0-100.0); PO2 ABG 60.2 mmHg (80.0-100.0); PO2 FiO2 Ratio Arterial Blood 1.09 %; Total Hemoglobin 12.1 g/dL (12.0-18.0)
[2022-02-20 10:15] LABS: pH ABG 7.262 (7.350-7.450)
[2022-02-20 10:16] LABS: Oxygen Saturation ABG 85.6 % (95.0-100.0); PCO2 ABG 89.7 mmHg (35.0-45.0)
[2022-02-20 10:17] LABS: Device NON-INVASIVE VENT; Modified Allen's Test Pass; Non-Invasive Expiratory Pressure 6 CMH2O; Non-Invasive Vent Rate 16 /MIN; Site Drawn RIGHT RADIAL
--- NOTE | 2022-02-20 10:32 | PM.PNPUL ---
Progress Note: A&P Assessment and Plan (1) COVID-19: Code(s): U07.1 - COVID-19 Status: Acute (2) Chronic obstructive pulmonary disease: Code(s): J44.9 - Chronic obstructive pulmonary disease, unspecified Status: Acute (3) Acute on chronic respiratory failure with hypoxia and hypercapnia: Code(s): J96.21 - Acute and chronic respiratory failure with hypoxia; J96.22 - Acute and chronic respiratory failure with hypercapnia Status: Acute Assessment and Plan: 71-year-old man with multiple medical problems including advanced COPD, chronic hypoxemic hypercapnic respiratory failure on home ventilatory support via BiPAP and supplemental oxygen, history of bronchiectasis with previous sputum culture positive for Pseudomonas sensitive to antibiotics presented with acute on chronic hypercapnic respiratory failure related to COVID-19 infection. Patient has been on treatment for COVID-19 pneumonia as well as noninvasive ventilatory support for acute on chronic hypercapnic respiratory failure. Patient is DNR and may not consider intubation at this point. his AVAP settings were changed this a.m. by lowering his EPAP and also lower his backup respiratory rate as he had evidence of lung hyperinflation on physical exam. Blood gases are being monitored. case was discussed with Dr. King, the asphalt still operator. We will repeat sputum culture. (4) Bronchiectasis: Qualifiers: Bronchiectasis type: uncomplicated Qualified Code(s): J47.9 - Bronchiectasis, uncomplicated Code(s): J47.9 - Bronchiectasis, uncomplicated Status: Acute Subjective Date/time seen: 02/20/22 10:32 70-year-old male with a history of COPD with chronic hypercarbic and hypoxemic respiratory failure On supplemental oxygen at home as well as BiPAP support with history of severe bronchiectasis and previous culture of Pseudomonas in his sputum presented with worsening respiratory failure related to COVID 19 infection. The patient has been on antibiotics for possible coinfection as well as on remdesivir and Solu-Medrol. Has been receiving AVAPS treatment for acute on chronic hypercapnic respiratory failure. Currently sitting in chair while receiving noninvasive ventilatory support. He stated his breathing is better. He has no other respiratory symptoms such as cough wheezing or sputum production. He is afebrile. Review of Systems Review of Systems: All systems reviewed & are unremarkable except as noted in HPI and below Exam Narrative: GEN: Alert, oriented, In mild respiratory distress tachypneic while on noninvasive ventilatory support sitting in chair. HEENT: pupils are equal, EOMI, symmetrical NECK: Trachea is midline CHEST: Distant breath sounds bilaterally with a rare crackles at bases posteriorly, no wheezing CV: Regular S1S2 no m/g/r ABD : (+) bowel sounds Extremities : no clubbing, cyanosis; he has edema 1-2+ lower legs with erythema PSYCH: normal thought and speech Objective Data Vital Signs Vital Signs: Vital Signs - 24 hr 02/19/22 10:38 02/19/22 12:00 02/19/22 13:52 Temperature 37.1 C Pulse Rate 95 74 67 Respiratory Rate 30 H 21 H 21 H Blood Pressure 130/58 L Pulse Oximetry 90 93 93 02/19/22 14:00 02/19/22 14:05 02/19/22 16:00 Temperature 36.2 C L Pulse Rate 65 73 68 Respiratory Rate 14 26 H 21 H Blood Pressure 103/64 118/66 Pulse Oximetry 100 90 02/19/22 16:57 02/19/22 18:00 02/19/22 20:00 Temperature 36.2 C L 36.4 C L Pulse Rate 61 65 69 Respiratory Rate 22 H 14 28 H Blood Pressure 94/61 L 119/55 L Pulse Oximetry 91 98 93 02/19/22 20:19 02/19/22 20:20 02/19/22 20:30 Temperature Pulse Rate 73 74 69 Respiratory Rate 29 H 26 H 23 H Blood Pressure Pulse Oximetry 95 02/19/22 22:00 02/19/22 23:03 02/20/22 00:00 Temperature 36.6 C Pulse Rate 71 78 75 Respiratory Rate 37 H 25 H 23 H Blood Pressure 119/55 L 119/58 L Pulse Oximetry 94 93 91 0
[2022-02-20] MEDS: REMDESIVIR 100 MG/NS 250 ML 100 MG/250 ML BAG 250 MG IVPB (11:43)
[2022-02-20] MEDS: FUROSEMIDE INJ 40 MG/4 ML VIAL IV PUSH (11:58)
[2022-02-20] MEDS: LIDOCAINE HCL 1% PF INJ 5 ML VIAL INFILTRATE (12:35)
[2022-02-20 16:45] LABS: Glucose Point of Care 216 mg/dl (65-105)
[2022-02-20 16:45] LABS: Glucose Point of Care 171 mg/dl (65-105)
[2022-02-20] MEDS: CENTRAL LINE FLUSH 10 ML IV PUSH ×2 (18:10→20:35)
[2022-02-20] MEDS: INSULIN ASPART (*BKC) 100 UNITS/ML SUB-Q (18:10)
[2022-02-20 23:19] LABS: Glucose Point of Care 141 mg/dl (65-105)
[2022-02-21] VITALS (33 sets, daily range): BP systolic 118–165; BP diastolic 48–104; PULSE 59–80; RESP 18–30; TEMP 36.2–36.9; O2SAT 92–99
[2022-02-21] MEDS: IPRATROPIUM BR 0.02% INH SOLN 0.5 MG/2.5 ML VIAL INHALATION ×4 (02:09→20:11)
[2022-02-21] MEDS: ALBUTEROL SULFATE NEB 2.5 MG/3 ML INH INHALATION ×4 (02:09→20:11)
[2022-02-21 04:42] LABS: Alveolar/Arterial O2 Gradient 226.9 mmHg; Carboxyhemoglobin 0.3 % THb (0-2.0); Fractional Inspired Oxygen 55 %; HCO3 ABG 41.3 mEq/l (22.0-26.0); Methemoglobin ABG 0.2 %THb (0-1.5); Oxygen Content ABG 14.3 %vol (16.0-22.0); Oxygen Saturation ABG 91.4 % (95.0-100.0); Oxyhemoglobin 92.4 % THb (90.0-100.0); PO2 ABG 70.4 mmHg (80.0-100.0); PO2 FiO2 Ratio Arterial Blood 1.28 %; Reduced Hemoglobin 7.1 %THb (0-5.0); pH ABG 7.303 (7.350-7.450)
[2022-02-21 04:45] LABS: Modified Allen's Test Unable to perform; PCO2 ABG 85.3 mmHg (35.0-45.0); Site Drawn RIGHT RADIAL
[2022-02-21 04:46] LABS: Device OTHER DEVICE
[2022-02-21 05:31] LABS: Hematocrit 33.7 % (42.0-52.0); Hemoglobin 10.1 g/dL (14.0-18.0); Mean Corpuscular Hemoglobin 31.8 pg (26-34); Mean Platelet Volume 10.6 fl (7.4-10.4); Platelet Count Result 94 k/mm3 (150-375); Red Blood Count 3.18 M/mm3 (4.6-6.20); Red Cell Distribution Width 16.6 % (11.5-14.5)
[2022-02-21 05:49] LABS: Alanine Aminotransferase 17 U/L (6-50); Albumin Level 2.8 g/dL (3.5-5.1); Alkaline Phosphatase 161 U/L (38-126); Aspartate Amino Transferase 44 U/L (17-59); Bilirubin,Total 0.4 mg/dL (0.2-1.3); Blood Urea Nitrogen 61 mg/dL (9-20); Calcium 7.7 mg/dL (8.4-10.2); Carbon Dioxide > 40 mmol/L (22-30); Chloride 94 mmol/L (98-107); Estimated CRCL calculation 55 ml/min; Estimated Glomerular Filt Rate 55; Glucose 81 mg/dL (65-110); Potassium 4.5 mmol/L (3.4-5.0); Sodium 137 mmol/L (137-145)
[2022-02-21] MEDS: CENTRAL LINE FLUSH 10 ML IV PUSH ×3 (05:56→21:26)
[2022-02-21 06:09] LABS: Band Neutrophils Percent 16 % (0-6); Lymphocytes Absolute Manual 0.66 K/mm3 (1.1-4.5); Monocytes Absolute Manual 0.18 K/mm3 (0.1-0.90); Monocytes Percent Manual 3 % (3-9); Neutrophils Absolute Manual 5.16 K/mm3 (1.3-6.7); Neutrophils Percent Manual 70 % (46-73); Total Cells Counted 100
[2022-02-21 06:10] LABS: Platelet Estimate Adequate (Adequate)
[2022-02-21] MEDS: PHENYTOIN SODIUM 100 MG EXTENDED RELEASE CAP 200 MG PO ×2 (08:26→21:27)
[2022-02-21] MEDS: ENOXAPARIN 40 MG/0.4 ML SYRINGE SUB-Q (08:27)
[2022-02-21] MEDS: ATORVASTATIN 40 MG TABLET PO (08:27)
[2022-02-21] MEDS: ASPIRIN 325 MG TABLET PO (08:27)
[2022-02-21] MEDS: CLOPIDOGREL BISULFATE 75 MG TABLET PO (08:28)
[2022-02-21] MEDS: TOPIRAMATE 25 MG TABLET PO (08:29)
[2022-02-21] MEDS: PANTOPRAZOLE SODIUM IV 40 MG VIAL IV PUSH (08:29)
--- NOTE | 2022-02-21 09:31 | PM.PNPUL ---
Progress Note: A&P Assessment and Plan (1) COVID-19: Code(s): U07.1 - COVID-19 Status: Acute (2) Chronic obstructive pulmonary disease: Code(s): J44.9 - Chronic obstructive pulmonary disease, unspecified Status: Acute (3) Acute on chronic respiratory failure with hypoxia and hypercapnia: Code(s): J96.21 - Acute and chronic respiratory failure with hypoxia; J96.22 - Acute and chronic respiratory failure with hypercapnia Status: Acute Assessment and Plan: 71-year-old man with multiple medical problems including advanced COPD, chronic hypoxemic hypercapnic respiratory failure on home ventilatory support via BiPAP and supplemental oxygen, history of bronchiectasis with previous sputum culture positive for Pseudomonas sensitive to antibiotics presented with acute on chronic hypercapnic respiratory failure related to COVID-19 infection. Patient has been on treatment for COVID-19 pneumonia as well as noninvasive ventilatory support for acute on chronic hypercapnic respiratory failure. Patient is DNR and may not consider intubation at this point. Arterial blood gases have improved on current BiPAP settings. Chest x-ray no significant waste/materials exchange specialist the last 24 hours. Continue with current BiPAP settings, antibiotics. will repeat sputum culture. OOB to chair. (4) Bronchiectasis: Qualifiers: Bronchiectasis type: uncomplicated Qualified Code(s): J47.9 - Bronchiectasis, uncomplicated Code(s): J47.9 - Bronchiectasis, uncomplicated Status: Acute Subjective Date/time seen: 02/21/22 09:31 patient with no new respiratory symptoms. Remaining on BiPAP support. Receiving treatment for COVID-19 infection and also for possible coinfection. Review of Systems Review of Systems: All systems reviewed & are unremarkable except as noted in HPI and below Exam Narrative: GEN: Alert, oriented, In mild respiratory distress tachypneic while on noninvasive ventilatory support. HEENT: pupils are equal, EOMI, symmetrical NECK: Trachea is midline CHEST: Distant breath sounds bilaterally with a rare crackles at bases posteriorly, no wheezing CV: Regular S1S2 no m/g/r ABD : (+) bowel sounds Extremities : no clubbing, cyanosis; he has edema 1-2+ lower legs with erythema PSYCH: normal thought and speech Objective Data Vital Signs Vital Signs: Vital Signs - 24 hr 02/20/22 10:00 02/20/22 10:20 02/20/22 12:00 Temperature 36.6 C 36.5 C Pulse Rate 72 72 92 Respiratory Rate 90 H 26 H 24 H Blood Pressure 111/57 L 115/53 L Pulse Oximetry 90 91 92 02/20/22 14:00 02/20/22 14:40 02/20/22 16:00 Temperature 36.2 C L Pulse Rate 73 77 68 Respiratory Rate 21 H 30 H 27 H Blood Pressure 123/59 L 129/84 Pulse Oximetry 92 95 94 02/20/22 17:40 02/20/22 18:00 02/20/22 19:52 Temperature Pulse Rate 68 67 64 Respiratory Rate 28 H 20 Blood Pressure 136/47 L Pulse Oximetry 95 99 02/20/22 20:00 02/20/22 20:20 02/20/22 20:22 Temperature 36.4 C L Pulse Rate 71 70 67 Respiratory Rate 20 19 26 H Blood Pressure 127/41 L Pulse Oximetry 97 95 02/20/22 20:27 02/20/22 21:57 02/20/22 22:00 Temperature 36.4 C L Pulse Rate 64 69 69 Respiratory Rate 25 H 20 Blood Pressure 130/43 L Pulse Oximetry 98 02/20/22 23:19 02/21/22 00:00 02/21/22 02:00 Temperature 36.6 C 36.9 C Pulse Rate 67 65 77 Respiratory Rate 25 H 20 20 Blood Pressure 130/48 L 121/48 L Pulse Oximetry 95 96 95 02/21/22 02:10 02/21/22 02:12 02/21/22 02:19 Temperature Pulse Rate 78 75 67 Respiratory Rate 26 H 23 H 24 H Blood Pressure Pulse Oximetry 95 02/21/22 04:00 02/21/22 04:39 02/21/22 06:00 Temperature 36.9 C 36.9 C Pulse Rate 77 74 72 Respiratory Rate 20 27 H 20 Blood Pressure 131/48 L 122/48 L Pulse Oximetry 94 95 94 02/21/22 08:01 02/21/22 08:02 02/21/22 08:12 Temperature Pulse Rate 73 71 71 Respiratory Rate 26 H 25 H 25 H Blood Pressure
[2022-02-21] MEDS: REMDESIVIR 100 MG/NS 250 ML 100 MG/250 ML BAG 250 MG IVPB (11:06)
[2022-02-21] MEDS: INSULIN ASPART (*BKC) 100 UNITS/ML SUB-Q ×2 (11:06→18:03)
[2022-02-21 11:19] LABS: Glucose Point of Care 203 mg/dl (65-105)
--- NOTE | 2022-02-21 12:11 | WPDINTPN ---
Progress Note: A&P Assessment and Plan (1) Acute on chronic respiratory failure with hypoxia and hypercapnia: Code(s): J96.21 - Acute and chronic respiratory failure with hypoxia; J96.22 - Acute and chronic respiratory failure with hypercapnia Status: Acute Assessment and Plan: Multifactorial Acute over chronic Respiratory failure secondary to severe baseline COPD, component of heart failure, COVID-19 pneumonia, and possible bacterial infection Patient has been on AVAPS since admission Chest x-ray and ABGs reviewed -this morning ABGs seemed to be better, patient feels a little better too. Currently on 50% FiO2 with good O2 sats -hold Lasix as patient with contraction alkalosis, elevated BUN and increasing creatinine and -Continue Dexamethasone, bronchodilators, remdesivir 02/18:CT chest without contrast IMPRESSION: Patchy consolidating right lower lobe infiltrate and scattered patchy new bilateral pulmonary infiltrates since 06/26/2021 suggesting multifocal pneumonia superimposed upon chronic interstitial and cystic lung change 02/18/2022: Sputum cultures growing Pseudomonas , susceptible to cefepime. Will continue cefepime and azithromycin Patient grew Pseudomonas on his last admission (08/07/21) pansensitive Since he has a mixed picture and CT is not consistent with classical picture for a COVID-19 pneumonia, Dr. King decided not to administer tocilizumab, after discussion with pulmonology (2) Pneumonia due to COVID-19 virus: Code(s): U07.1 - COVID-19; J12.82 - Pneumonia due to coronavirus disease 2018 Status: Acute Assessment and Plan: See above (3) COPD exacerbation: Code(s): J44.1 - Chronic obstructive pulmonary disease with (acute) exacerbation Status: Acute Assessment and Plan: See above PFT's 01/17/22 There is a very severe obstructive abnormality without significant improvement after inhaling a single dose of albuterol. The increase in residual volume is consistent with air trapping from an obstructive abnormality. The diffusing capacity unadjusted for hemoglobin and carboxyhemoglobin is severely decreased and remains moderately decreased when adjusted for alveolar volume. (4) Community acquired pneumonia: Code(s): J18.9 - Pneumonia, unspecified organism Status: Acute Assessment and Plan: See above (5) Congestive heart failure: Code(s): I50.9 - Heart failure, unspecified Status: Acute Assessment and Plan: Patient has lower extremity edema and chest x-ray suggestive of pulmonary edema Patient likely has cor pulmonale from COPD 02/18/2022 echocardiogram: EF 65-70%, LV diastolic function is normal, dilated inferior vena cava with elevated right atrial pressures -patient on Lasix, currently on hold due to contraction alkalosis and elevated BUN (6) Seizure disorder: Code(s): G40.909 - Epilepsy, unspecified, not intractable, without status epilepticus Status: Acute Assessment and Plan: Continue phenytoin 200 mg q.12 hours (7) Hypertension: Code(s): I10 - Essential (primary) hypertension Status: Acute Assessment and Plan: Blood pressure in controlled range at this time. Monitor Hold p.o. meds Additional Plan DVT prophylaxis -Lovenox Stress ulcer prophylaxis -PPI Nutrition -full liquid diet for now Code Status -02/18 Dr King discussed with patient in detail about current findings and current treatment plan. He requested to be DNR, he does not want CPR or resuscitation in the event of cardiac arrest but he is agreeable to intubation for respiratory failure. He states that he is unsure about intubation also but will give it a thought as of now if his respiratory status deteriorates he is agreeable for intubation and mechanical ventilation 02/19 -patient mentioned to the nurse that he is not sure whether he would like to go on a ventilator. Dr King again spoke to patient on 02/20 and mention
--- NOTE | 2022-02-21 15:12 | PM.IMPN ---
Progress Note: A&P Assessment and Plan (1) Acute on chronic respiratory failure with hypoxia and hypercapnia: Code(s): J96.21 - Acute and chronic respiratory failure with hypoxia; J96.22 - Acute and chronic respiratory failure with hypercapnia Status: Acute Assessment and Plan: Multifactorial Acute over chronic Respiratory failure secondary to severe baseline COPD, component of heart failure, COVID-19 pneumonia, and possible bacterial infection Patient has been on AVAPS since admission Chest x-ray and ABGs reviewed -this morning ABGs seemed to be better, patient feels a little better too. Currently on 50% FiO2 with good O2 sats -hold Lasix as patient with contraction alkalosis, elevated BUN and increasing creatinine and -Continue Dexamethasone, bronchodilators, remdesivir 02/18:CT chest without contrast IMPRESSION: Patchy consolidating right lower lobe infiltrate and scattered patchy new bilateral pulmonary infiltrates since 06/26/2021 suggesting multifocal pneumonia superimposed upon chronic interstitial and cystic lung change 02/18/2022: Sputum cultures growing Pseudomonas , susceptible to cefepime. Will continue cefepime and azithromycin Patient grew Pseudomonas on his last admission (08/07/21) pansensitive Since he has a mixed picture and CT is not consistent with classical picture for a COVID-19 pneumonia, Dr. King decided not to administer tocilizumab, after discussion with pulmonology (2) Pneumonia due to COVID-19 virus: Code(s): U07.1 - COVID-19; J12.82 - Pneumonia due to coronavirus disease 2018 Status: Acute Assessment and Plan: See above (3) COPD exacerbation: Code(s): J44.1 - Chronic obstructive pulmonary disease with (acute) exacerbation Status: Acute Assessment and Plan: See above PFT's 01/17/22 There is a very severe obstructive abnormality without significant improvement after inhaling a single dose of albuterol. The increase in residual volume is consistent with air trapping from an obstructive abnormality. The diffusing capacity unadjusted for hemoglobin and carboxyhemoglobin is severely decreased and remains moderately decreased when adjusted for alveolar volume. 02/20/2022 interval history: patient is 71-year-old male with history of severe COPD emphysema on CT scan concerning for bronchiectasis he presented emergency department with a complaint of shortness of breath and patient is positive for COVID-19, patient is seen astrochemist patient is started on dexamethasone, remdesivir and bronchodilator, I discussed with astrochemist he is not convinced the patient is a true COVID-[address] scan does not show ground-glass appearance classically known COVID 19, patient is seen by flexographic press plate setter recommended to continue present management and will continue to monitor and appreciate (4) Community acquired pneumonia: Code(s): J18.9 - Pneumonia, unspecified organism Status: Acute Assessment and Plan: See above (5) Congestive heart failure: Code(s): I50.9 - Heart failure, unspecified Status: Acute Assessment and Plan: Patient has lower extremity edema and chest x-ray suggestive of pulmonary edema Patient likely has cor pulmonale from COPD 02/18/2022 echocardiogram: EF 65-70%, LV diastolic function is normal, dilated inferior vena cava with elevated right atrial pressures -patient on Lasix, currently on hold due to contraction alkalosis and elevated BUN (6) Seizure disorder: Code(s): G40.909 - Epilepsy, unspecified, not intractable, without status epilepticus Status: Acute Assessment and Plan: Continue phenytoin 200 mg q.12 hours (7) Hypertension: Code(s): I10 - Essential (primary) hypertension Status: Acute Assessment and Plan: Blood pressure in controlled range at this time. Monitor Hold p.o. meds Subjective Date/time seen: 02/20/22 15:12 HPI This is a pleasant 71-year-old male with chr
--- NOTE | 2022-02-21 15:26 | PM.IMPN ---
Progress Note: A&P Assessment and Plan (1) Acute on chronic respiratory failure with hypoxia and hypercapnia: Code(s): J96.21 - Acute and chronic respiratory failure with hypoxia; J96.22 - Acute and chronic respiratory failure with hypercapnia Status: Acute Assessment and Plan: Multifactorial Acute over chronic Respiratory failure secondary to severe baseline COPD, component of heart failure, COVID-19 pneumonia, and possible bacterial infection Patient has been on AVAPS since admission Chest x-ray and ABGs reviewed -this morning ABGs seemed to be better, patient feels a little better too. Currently on 50% FiO2 with good O2 sats -hold Lasix as patient with contraction alkalosis, elevated BUN and increasing creatinine and -Continue Dexamethasone, bronchodilators, remdesivir 02/18:CT chest without contrast IMPRESSION: Patchy consolidating right lower lobe infiltrate and scattered patchy new bilateral pulmonary infiltrates since 06/26/2021 suggesting multifocal pneumonia superimposed upon chronic interstitial and cystic lung change 02/18/2022: Sputum cultures growing Pseudomonas , susceptible to cefepime. Will continue cefepime and azithromycin Patient grew Pseudomonas on his last admission (08/07/21) pansensitive Since he has a mixed picture and CT is not consistent with classical picture for a COVID-19 pneumonia, Dr. King decided not to administer tocilizumab, after discussion with pulmonology (2) Pneumonia due to COVID-19 virus: Code(s): U07.1 - COVID-19; J12.82 - Pneumonia due to coronavirus disease 2018 Status: Acute Assessment and Plan: See above (3) COPD exacerbation: Code(s): J44.1 - Chronic obstructive pulmonary disease with (acute) exacerbation Status: Acute Assessment and Plan: See above PFT's 01/17/22 There is a very severe obstructive abnormality without significant improvement after inhaling a single dose of albuterol. The increase in residual volume is consistent with air trapping from an obstructive abnormality. The diffusing capacity unadjusted for hemoglobin and carboxyhemoglobin is severely decreased and remains moderately decreased when adjusted for alveolar volume. 02/20/2022 interval history: patient is 71-year-old male with history of severe COPD emphysema on CT scan concerning for bronchiectasis he presented emergency department with a complaint of shortness of breath and patient is positive for COVID-19, patient is seen log yard manager patient is started on dexamethasone, remdesivir and bronchodilator, I discussed with log yard manager he is not convinced the patient is a true COVID-[address] scan does not show ground-glass appearance classically known COVID 19, patient is seen by sports lawyer recommended to continue present management and will continue to monitor and appreciate. 02/21/2022 interval history: patient is 71-year-old male with history of severe COPD emphysema on CT scan concerning for bronchiectasis he presented emergency department with a complaint of shortness of breath and patient is positive for COVID-19, patient is seen log yard manager patient is started on dexamethasone, remdesivir and bronchodilator, again today I discussed with log yard manager he is not convinced the patient has a true COVID-[address] scan does not show ground-glass appearance classically known COVID 19, patient is seen by sports lawyer recommended to continue present management with BiPAP as patient has hypercarbic respiratory failure patient is a DNR and may not be intubated, and will continue to monitor and appreciate (4) Community acquired pneumonia: Code(s): J18.9 - Pneumonia, unspecified organism Status: Acute Assessment and Plan: See above (5) Congestive heart failure: Code(s): I50.9 - Heart failure, unspecified Status: Acute Assessment and Plan: Patient has lower extremity edema and chest x-ray suggestive of pulmonary edema Patient likely has cor
[2022-02-21 21:21] LABS: Glucose Point of Care 267 mg/dl (65-105)
[2022-02-21 22:42] LABS: Pneumococcal Antigen Urine Not Detected (Not Detected)
[2022-02-21 23:55] LABS: Glucose Point of Care 122 mg/dl (65-105)
[2022-02-22] VITALS (30 sets, daily range): BP systolic 134–187; BP diastolic 56–88; PULSE 64–78; RESP 19–34; TEMP 36.1–36.7; O2SAT 90–96; BMI 31.7
[2022-02-22] MEDS: ALBUTEROL SULFATE NEB 2.5 MG/3 ML INH INHALATION ×4 (02:18→20:22)
[2022-02-22] MEDS: IPRATROPIUM BR 0.02% INH SOLN 0.5 MG/2.5 ML VIAL INHALATION ×4 (02:18→20:22)
[2022-02-22 04:06] LABS: Basophils Percent Auto 0.5 % (0.2-1.2); Eosinophils Percent Auto 0.2 % (0-4.4); Hematocrit 33.6 % (42.0-52.0); Hemoglobin 10.2 g/dL (14.0-18.0); Immature Granulocyte Absolute 0.18 K/mm3 (0.00-0.031); Immature Granulocyte Percent A 3.3 % (0-0.5); Lymphocytes Percent Auto 10.9 % (18.3-44.2); Mean Corpuscular HGB Conc 30.4 g/dl (32-36); Mean Corpuscular Hemoglobin 31.9 pg (26-34); Mean Platelet Volume 10.2 fl (7.4-10.4); Monocytes Absolute Auto 0.7 K/mm3 (0.1-0.6); Neutrophils Percent Auto 72.1 % (45.5-73.1); Platelet Count Result 98 k/mm3 (150-375); Red Cell Distribution Width 16.2 % (11.5-14.5); White Blood Count 5.5 K/mm3 (4.5-10.0)
[2022-02-22 05:12] LABS: Alanine Aminotransferase 19 U/L (6-50); Alkaline Phosphatase 180 U/L (38-126); Aspartate Amino Transferase 49 U/L (17-59); Bilirubin,Total 0.4 mg/dL (0.2-1.3); Blood Urea Nitrogen 55 mg/dL (9-20); Calcium 8.2 mg/dL (8.4-10.2); Carbon Dioxide > 40 mmol/L (22-30); Chloride 95 mmol/L (98-107); Estimated CRCL calculation 65 ml/min; Estimated Glomerular Filt Rate > 60; Glucose 77 mg/dL (65-110); Potassium 4.5 mmol/L (3.4-5.0); Sodium 138 mmol/L (137-145)
[2022-02-22 05:23] LABS: Alveolar/Arterial O2 Gradient 162.5 mmHg; Base Excess ABG 9.7 mEq/l (+/-2.0); Carboxyhemoglobin 0.3 % THb (0-2.0); Fractional Inspired Oxygen 45 %; HCO3 ABG 38.2 mEq/l (22.0-26.0); Methemoglobin ABG 0.2 %THb (0-1.5); Oxygen Content ABG 15.3 %vol (16.0-22.0); Oxygen Saturation ABG 93.1 % (95.0-100.0); Oxyhemoglobin 92.8 % THb (90.0-100.0); PO2 ABG 73.7 mmHg (80.0-100.0); PO2 FiO2 Ratio Arterial Blood 1.64 %; Reduced Hemoglobin 6.7 %THb (0-5.0); Total Hemoglobin 11.7 g/dL (12.0-18.0); pH ABG 7.328 (7.350-7.450)
[2022-02-22 05:25] LABS: Modified Allen's Test Pass; PCO2 ABG 74.4 mmHg (35.0-45.0); Site Drawn RIGHT RADIAL
[2022-02-22 05:26] LABS: Device OTHER DEVICE
[2022-02-22] MEDS: CENTRAL LINE FLUSH 10 ML IV PUSH ×2 (05:47→18:08)
[2022-02-22 07:30] LABS: Glucose Point of Care 90 mg/dl (65-105)
--- NOTE | 2022-02-22 08:37 | P.PNINT_ITS ---
Progress Note: A&P Assessment and Plan (1) Acute on chronic respiratory failure with hypoxia and hypercapnia: Code(s): J96.21 - Acute and chronic respiratory failure with hypoxia; J96.22 - Acute and chronic respiratory failure with hypercapnia Status: Acute Assessment and Plan: Multifactorial Acute over chronic Respiratory failure secondary to severe baseline COPD, component of heart failure, COVID-19 pneumonia, and possible bacterial infection Patient has been on AVAPS since admission Chest x-ray and ABGs reviewed -this morning ABGs seemed to be better, patient feels a little better too. Currently on 50% FiO2 with good O2 sats -hold Lasix as patient with contraction alkalosis, elevated BUN and increasing creatinine and -Continue Dexamethasone, bronchodilators, remdesivir 02/18:CT chest without contrast IMPRESSION: Patchy consolidating right lower lobe infiltrate and scattered patchy new bilateral pulmonary infiltrates since 06/26/2021 suggesting multifocal pneumonia superimposed upon chronic interstitial and cystic lung change 02/18/2022: Sputum cultures growing Pseudomonas , susceptible to cefepime. Will continue cefepime and azithromycin Patient grew Pseudomonas on his last admission (08/07/21) pansensitive Since he has a mixed picture and CT is not consistent with classical picture for a COVID-19 pneumonia, Dr. King decided not to administer tocilizumab, after discussion with pulmonology (2) Pneumonia due to COVID-19 virus: Code(s): U07.1 - COVID-19; J12.82 - Pneumonia due to coronavirus disease 2018 Status: Acute Assessment and Plan: See above (3) COPD exacerbation: Code(s): J44.1 - Chronic obstructive pulmonary disease with (acute) exacerbation Status: Acute Assessment and Plan: See above PFT's 01/17/22 There is a very severe obstructive abnormality without significant improvement after inhaling a single dose of albuterol. The increase in residual volume is consistent with air trapping from an obstructive abnormality. The diffusing capacity unadjusted for hemoglobin and carboxyhemoglobin is severely decreased and remains moderately decreased when adjusted for alveolar volume. (4) Community acquired pneumonia: Code(s): J18.9 - Pneumonia, unspecified organism Status: Acute Assessment and Plan: See above (5) Congestive heart failure: Code(s): I50.9 - Heart failure, unspecified Status: Acute Assessment and Plan: Patient has lower extremity edema and chest x-ray suggestive of pulmonary edema Patient likely has cor pulmonale from COPD 02/18/2022 echocardiogram: EF 65-70%, LV diastolic function is normal, dilated inferior vena cava with elevated right atrial pressures -patient on Lasix, currently on hold due to contraction alkalosis and elevated BUN (6) Seizure disorder: Code(s): G40.909 - Epilepsy, unspecified, not intractable, without status epilepticus Status: Acute Assessment and Plan: Continue phenytoin 200 mg q.12 hours (7) Hypertension: Code(s): I10 - Essential (primary) hypertension Status: Acute Assessment and Plan: Blood pressure in controlled range at this time. Monitor Hold p.o. meds Additional Plan DVT prophylaxis -Lovenox Stress ulcer prophylaxis -PPI Nutrition -full liquid diet for now Code Status -02/18 Dr King discussed with patient in detail about current findings and current treatment plan. He requested to be DNR, he does not want CPR or resuscitation in the event of cardiac arrest but he is agreeable to intubation fo
[2022-02-22] MEDS: REMDESIVIR 100 MG/NS 250 ML 100 MG/250 ML BAG 250 MG IVPB (09:24)
[2022-02-22] MEDS: ATORVASTATIN 40 MG TABLET PO (09:40)
[2022-02-22] MEDS: PANTOPRAZOLE SODIUM IV 40 MG VIAL IV PUSH (09:40)
[2022-02-22] MEDS: ASPIRIN 325 MG TABLET PO (09:40)
[2022-02-22] MEDS: TOPIRAMATE 25 MG TABLET PO (09:41)
[2022-02-22] MEDS: ENOXAPARIN 40 MG/0.4 ML SYRINGE SUB-Q (09:41)
[2022-02-22] MEDS: CLOPIDOGREL BISULFATE 75 MG TABLET PO (09:41)
[2022-02-22] MEDS: PHENYTOIN SODIUM 100 MG EXTENDED RELEASE CAP 200 MG PO ×2 (09:41→21:51)
[2022-02-22 11:53] LABS: Glucose Point of Care 389 mg/dl (65-105)
[2022-02-22] MEDS: INSULIN ASPART (*BKC) 100 UNITS/ML SUB-Q (12:10)
--- NOTE | 2022-02-22 15:01 | PM.IMPN ---
Progress Note: A&P Assessment and Plan (1) Acute on chronic respiratory failure with hypoxia and hypercapnia: Code(s): J96.21 - Acute and chronic respiratory failure with hypoxia; J96.22 - Acute and chronic respiratory failure with hypercapnia Status: Acute Assessment and Plan: Multifactorial Acute over chronic Respiratory failure secondary to severe baseline COPD, component of heart failure, COVID-19 pneumonia, and possible bacterial infection Patient has been on AVAPS since admission Chest x-ray and ABGs reviewed Continued treatment for COVID hand COPD (2) Pneumonia due to COVID-19 virus: Code(s): U07.1 - COVID-19; J12.82 - Pneumonia due to coronavirus disease 2019 Status: Acute Assessment and Plan: See above (3) COPD exacerbation: Code(s): J44.1 - Chronic obstructive pulmonary disease with (acute) exacerbation Status: Acute (4) Community acquired pneumonia: Code(s): J18.9 - Pneumonia, unspecified organism Status: Acute Assessment and Plan: Azithromycin and cefepime (5) Congestive heart failure: Code(s): I50.9 - Heart failure, unspecified Status: Acute Assessment and Plan: Continue to monitor volume status (6) Seizure disorder: Code(s): G40.909 - Epilepsy, unspecified, not intractable, without status epilepticus Status: Acute Assessment and Plan: Continue phenytoin 200 mg q.12 hours (7) Hypertension: Code(s): I10 - Essential (primary) hypertension Status: Acute Assessment and Plan: Blood pressure in controlled range at this time. Monitor Hold p.o. meds Subjective Date/time seen: 02/22/22 15:01 Patient appears to be in good spirits. Currently on BiPAP Exam Narrative: General: Pt is alert awake and on BiPAP Lungs/Chest: Trachea central Clear BS B/L, bilateral crackles present no respiratory distress or use of accessory muscles Decreased air entry bilaterally Cardiac: RRR. Normal S1 S2. No murmurs Circulation: Feet are warm. Abdomen: Normal bowel sounds. Obese. Soft. NT. ND. Extremities: No clubbing, cyanosis, bilateral lower extremity pitting edema, Warm : Medel in place Neurologic: Follows commands. Moves all 4 extremities PERRL AO x3 follows commands with all 4 extremities Skin: No Rash Objective Data Vital Signs Vital Signs: Vital Signs - 24 hr 02/21/22 16:00 02/21/22 16:08 02/21/22 17:40 Temperature 97.4 F L Pulse Rate 68 67 66 Respiratory Rate 25 H 18 27 H Blood Pressure 165/75 H Pulse Oximetry 93 94 97 02/21/22 18:00 02/21/22 19:52 02/21/22 19:53 Temperature 97.5 F L Pulse Rate 63 63 63 Respiratory Rate 25 H 22 H Blood Pressure 160/62 H Pulse Oximetry 99 97 02/21/22 20:00 02/21/22 20:11 02/21/22 20:12 Temperature 97.2 F L Pulse Rate 63 59 L 61 Respiratory Rate 20 27 H 27 H Blood Pressure 140/64 Pulse Oximetry 96 96 02/21/22 20:13 02/21/22 20:26 02/21/22 22:00 Temperature 97.8 F Pulse Rate 64 67 Respiratory Rate 25 H 20 Blood Pressure 137/56 L Pulse Oximetry 95 92 02/21/22 23:10 02/22/22 00:00 02/22/22 02:00 Temperature 98.1 F 97.6 F Pulse Rate 66 73 68 Respiratory Rate 23 H 20 22 H Blood Pressure 137/56 L 147/86 H Pulse Oximetry 95 95 94 02/22/22 02:17 02/22/22 02:18 02/22/22 02:32 Temperature Pulse Rate 71 71 73 Respiratory Rate 21 H 21 H 21 H Blood Pressure Pulse Oximetry 94 02/22/22 04:00 02/22/22 05:06 02/22/22 05:52 Temperature 97.3 F L Pulse Rate 70 64 73 Respiratory Rate 22 H 23 H Blood Pressure 148/63 H Pulse Oximetry 93 92 02/22/22 06:00 02/22/22 08:00 02/22/22 08:13 Temperature 97 F L 97.2 F L Pulse Rate 72 74 78 Respiratory Rate 20 23 H 21 H Blood Pressure 160/65 H 139/85 Pulse Oximetry 92 93 02/22/22 08:16 02/22/22 08:20 02/22/22 10:00 Temperature Pulse Rate 66 77 72 Respiratory Rate 22 H 21 H Blood Pressure Pulse Oximetry 94 02/22/22 1
[2022-02-22 17:05] LABS: Legionella pneumophila Ag Ur Not Detected (Not Detected)
[2022-02-22 18:24] LABS: Glucose Point of Care 155 mg/dl (65-105)
[2022-02-23] VITALS (35 sets, daily range): BP systolic 133–191; BP diastolic 63–79; PULSE 58–95; RESP 13–32; TEMP 36–36.6; O2SAT 88–100
[2022-02-23 00:49] LABS: Glucose Point of Care 84 mg/dl (65-105)
[2022-02-23] MEDS: ALBUTEROL SULFATE NEB 2.5 MG/3 ML INH INHALATION ×4 (01:54→20:39)
[2022-02-23] MEDS: IPRATROPIUM BR 0.02% INH SOLN 0.5 MG/2.5 ML VIAL INHALATION ×4 (01:54→20:39)
[2022-02-23] MEDS: hydrALAZINE HCL 20 MG/ML VIAL IV PUSH (02:14)
[2022-02-23 04:49] LABS: Basophils Percent Auto 0.3 % (0.2-1.2); Eosinophils Percent Auto 0.6 % (0-4.4); Hematocrit 34.7 % (42.0-52.0); Hemoglobin 10.4 g/dL (14.0-18.0); Immature Granulocyte Percent A 3.2 % (0-0.5); Immature Platelet Fraction Pct 3.5 % (0.9-11.2); Lymphocytes Absolute Auto 0.71 K/mm3 (0.9-3.2); Lymphocytes Percent Auto 11.4 % (18.3-44.2); Mean Corpuscular Hemoglobin 31.3 pg (26-34); Mean Corpuscular Volume 104.5 fl (80-100); Mean Platelet Volume 9.7 fl (7.4-10.4); Monocytes Absolute Auto 0.8 K/mm3 (0.1-0.6); Monocytes Percent Auto 12.8 % (2.6-8.5); Neutrophils Absolute Auto 4.5 K/mm3 (1.3-6.7); Neutrophils Percent Auto 71.7 % (45.5-73.1); Platelet Count Result 154 k/mm3 (150-375); Red Blood Count 3.32 M/mm3 (4.6-6.20); Red Cell Distribution Width 15.8 % (11.5-14.5); White Blood Count 6.2 K/mm3 (4.5-10.0)
[2022-02-23 05:08] LABS: Alanine Aminotransferase 23 U/L (6-50); Albumin Level 2.9 g/dL (3.5-5.1); Alkaline Phosphatase 179 U/L (38-126); Aspartate Amino Transferase 51 U/L (17-59); Bilirubin,Total 0.5 mg/dL (0.2-1.3); Blood Urea Nitrogen 44 mg/dL (9-20); Calcium 8.8 mg/dL (8.4-10.2); Carbon Dioxide > 40 mmol/L (22-30); Chloride 94 mmol/L (98-107); Estimated CRCL calculation 70 ml/min; Estimated Glomerular Filt Rate > 60; Glucose 123 mg/dL (65-110); Magnesium 2.2 mg/dL (1.6-2.3); Phosphorus 3.4 mg/dL (2.5-4.5); Potassium 4.3 mmol/L (3.4-5.0); Sodium 141 mmol/L (137-145)
[2022-02-23 06:09] LABS: Alveolar/Arterial O2 Gradient 158.3 mmHg; Base Excess ABG 14.9 mEq/l (+/-2.0); Carboxyhemoglobin 0.3 % THb (0-2.0); Fractional Inspired Oxygen 45 %; HCO3 ABG 42.9 mEq/l (22.0-26.0); Methemoglobin ABG 0.1 %THb (0-1.5); Oxygen Content ABG 15.3 %vol (16.0-22.0); Oxygen Saturation ABG 95.1 % (95.0-100.0); Oxyhemoglobin 94.2 % THb (90.0-100.0); PO2 ABG 79.7 mmHg (80.0-100.0); PO2 FiO2 Ratio Arterial Blood 1.77 %; Reduced Hemoglobin 5.4 %THb (0-5.0); Total Hemoglobin 11.5 g/dL (12.0-18.0); pH ABG 7.388 (7.350-7.450)
[2022-02-23 06:12] LABS: Device NON-INVASIVE VENT; Modified Allen's Test Pass; Non-Invasive Vent Rate 16 /MIN; PCO2 ABG 72.8 mmHg (35.0-45.0); Site Drawn RIGHT RADIAL
[2022-02-23 06:13] LABS: Non-Invasive Expiratory Pressure 6 CMH2O
[2022-02-23] MEDS: ASPIRIN 325 MG TABLET PO (08:07)
[2022-02-23] MEDS: PANTOPRAZOLE SODIUM IV 40 MG VIAL IV PUSH (08:08)
[2022-02-23] MEDS: ENOXAPARIN 40 MG/0.4 ML SYRINGE SUB-Q (08:08)
[2022-02-23] MEDS: PHENYTOIN SODIUM 100 MG EXTENDED RELEASE CAP 200 MG PO ×2 (08:11→21:14)
[2022-02-23] MEDS: CLOPIDOGREL BISULFATE 75 MG TABLET PO (08:12)
[2022-02-23] MEDS: TOPIRAMATE 25 MG TABLET PO (08:13)
[2022-02-23] MEDS: ATORVASTATIN 40 MG TABLET PO (08:13)
[2022-02-23 10:38] LABS: Prothrombin Time 12.8 Seconds (11.1-14.7)
--- NOTE | 2022-02-23 10:58 | PCFNICU ---
ICU Rounding Note: Pt current nutrition is Heart Healthy with Ensure Enlive and Nutritional Ice Cream TID. Last recorded weight is 105.9 kg, up from 97.5 kg on admit. Bowel Motility: No BM reported Labs Reviewed: Glu 123, BUN 44, Alb 2.9,Hct 34.7, Hgb 10.4 Meds Noted:Albuterol, Lipitor, Zithromax,Maxipime, Plavix, Remdesivir, Decadron, Topamax, Lovenox, Atrovent, Protonix. Skin: WNL Additional Notes: Diet order has advanced to a regular feedings, diet order changed today to heart healthy diet. Patient has been drinking diet supplements of Ensure Enlive providing 350 kcals and 20 gms protein. Nutritional Ice cream providing an additional 290 kcals and 9 gms protein. High Flow with Nasal Canula for O2 delivery. PT/OT ordered. Nursing getting patient food and up in chair. Agree with diet orders. Following daily in ICU rounds. RD will monitor every 3 days.
[2022-02-23] MEDS: REMDESIVIR 100 MG/NS 250 ML 100 MG/250 ML BAG 250 MG IVPB (11:23)
[2022-02-23 11:28] LABS: Glucose Point of Care 176 mg/dl (65-105)
--- NOTE | 2022-02-23 11:43 | PM.IMPN ---
Progress Note: A&P Assessment and Plan (1) Acute on chronic respiratory failure with hypoxia and hypercapnia: Code(s): J96.21 - Acute and chronic respiratory failure with hypoxia; J96.22 - Acute and chronic respiratory failure with hypercapnia Status: Acute Assessment and Plan: Multifactorial Acute over chronic Respiratory failure secondary to severe baseline COPD, component of heart failure, COVID-19 pneumonia, and possible bacterial infection Patient has been on AVAPS since admission Chest x-ray and ABGs reviewed Continued treatment for COVID hand COPD (2) Pneumonia due to COVID-19 virus: Code(s): U07.1 - COVID-19; J12.82 - Pneumonia due to coronavirus disease 2019 Status: Acute Assessment and Plan: See above (3) COPD exacerbation: Code(s): J44.1 - Chronic obstructive pulmonary disease with (acute) exacerbation Status: Acute (4) Community acquired pneumonia: Code(s): J18.9 - Pneumonia, unspecified organism Status: Acute Assessment and Plan: Azithromycin and cefepime (5) Congestive heart failure: Code(s): I50.9 - Heart failure, unspecified Status: Acute Assessment and Plan: Continue to monitor volume status (6) Seizure disorder: Code(s): G40.909 - Epilepsy, unspecified, not intractable, without status epilepticus Status: Acute Assessment and Plan: Continue phenytoin 200 mg q.12 hours (7) Hypertension: Code(s): I10 - Essential (primary) hypertension Status: Acute Assessment and Plan: Blood pressure in controlled range at this time. Monitor Hold p.o. meds Subjective Date/time seen: 02/23/22 11:43 no new issues overnight Exam Narrative: General: Pt is alert awake and on BiPAP Lungs/Chest: Trachea central Clear BS B/L, bilateral crackles present no respiratory distress or use of accessory muscles Decreased air entry bilaterally Cardiac: RRR. Normal S1 S2. No murmurs Circulation: Feet are warm. Abdomen: Normal bowel sounds. Obese. Soft. NT. ND. Extremities: No clubbing, cyanosis, bilateral lower extremity pitting edema, Warm : Medel in place Neurologic: Follows commands. Moves all 4 extremities PERRL AO x3 follows commands with all 4 extremities Skin: No Rash Objective Data Vital Signs Vital Signs: Vital Signs - 24 hr 02/22/22 11:49 02/22/22 12:00 02/22/22 14:00 Temperature 97.2 F L 97.2 F L Pulse Rate 72 74 72 Respiratory Rate 22 H 23 H 22 H Blood Pressure 139/69 158/67 H Pulse Oximetry 93 93 94 02/22/22 14:01 02/22/22 14:07 02/22/22 16:00 Temperature 97.6 F Pulse Rate 68 75 69 Respiratory Rate 22 H 20 24 H Blood Pressure 166/68 H Pulse Oximetry 94 93 02/22/22 18:00 02/22/22 20:00 02/22/22 20:02 Temperature 97.5 F L 97.4 F L Pulse Rate 68 74 72 Respiratory Rate 26 H 31 H Blood Pressure 163/73 H 187/88 H Pulse Oximetry 95 96 96 02/22/22 20:22 02/22/22 20:25 02/22/22 20:28 Temperature Pulse Rate 71 69 70 Respiratory Rate 34 H 30 H 30 H Blood Pressure Pulse Oximetry 95 02/22/22 21:02 02/22/22 22:00 02/22/22 22:02 Temperature 97.7 F 97.5 F L Pulse Rate 66 77 75 Respiratory Rate 19 23 H Blood Pressure 134/76 172/69 H Pulse Oximetry 93 90 02/22/22 23:30 02/23/22 00:00 02/23/22 00:02 Temperature 97.8 F Pulse Rate 77 81 67 Respiratory Rate 23 H 26 H Blood Pressure 154/77 H Pulse Oximetry 90 93 94 02/23/22 00:43 02/23/22 01:53 02/23/22 01:55 Temperature 97.8 F Pulse Rate 69 75 74 Respiratory Rate 30 H 32 H 32 H Blood Pressure 149/72 H Pulse Oximetry 90 92 02/23/22 02:00 02/23/22 02:01 02/23/22 03:56 Temperature 97.5 F L Pulse Rate 74 73 Respiratory Rate 27 H Blood Pressure 167/73 H Pulse Oximetry 91 88 L 02/23/22 04:00 02/23/22 04:01 02/23/22 05:51 Temperature 97.0 F L Pulse Rate 94 95 85 Respiratory Rate 30 H 32 H Blood Pressure 144/63 H Pulse Oximetry 88 L 94 02/23/22
--- NOTE | 2022-02-23 12:19 | WPDINTPN ---
Progress Note: A&P Assessment and Plan (1) Acute on chronic respiratory failure with hypoxia and hypercapnia: Code(s): J96.21 - Acute and chronic respiratory failure with hypoxia; J96.22 - Acute and chronic respiratory failure with hypercapnia Status: Acute Assessment and Plan: Multifactorial Acute over chronic Respiratory failure secondary to severe baseline COPD, component of heart failure, COVID-19 pneumonia, and possible bacterial infection Patient has been on AVAPS since admission, will switch patient to high-flow therapy with Airvo Chest x-ray and ABGs reviewed -ABGs have continue to improve . Currently on 45% FiO2 with good O2 sats -hold Lasix as patient with contraction alkalosis, elevated BUN and increasing creatinine and -Continue Dexamethasone, bronchodilators, will re-dose remdesivir for additional 5 days 02/18:CT chest without contrast IMPRESSION: Patchy consolidating right lower lobe infiltrate and scattered patchy new bilateral pulmonary infiltrates since 06/26/2021 suggesting multifocal pneumonia superimposed upon chronic interstitial and cystic lung change 02/18/2022: Sputum cultures growing Pseudomonas , susceptible to cefepime. Will continue cefepime and azithromycin (02/18) Patient grew Pseudomonas on his last admission (08/07/21) pansensitive Since he has a mixed picture and CT is not consistent with classical picture for a COVID-19 pneumonia, Dr. King decided not to administer tocilizumab, after discussion with pulmonology (2) Pneumonia due to COVID-19 virus: Code(s): U07.1 - COVID-19; J12.82 - Pneumonia due to coronavirus disease 2018 Status: Acute Assessment and Plan: See above (3) COPD exacerbation: Code(s): J44.1 - Chronic obstructive pulmonary disease with (acute) exacerbation Status: Acute Assessment and Plan: See above PFT's 01/17/22 There is a very severe obstructive abnormality without significant improvement after inhaling a single dose of albuterol. The increase in residual volume is consistent with air trapping from an obstructive abnormality. The diffusing capacity unadjusted for hemoglobin and carboxyhemoglobin is severely decreased and remains moderately decreased when adjusted for alveolar volume. (4) Community acquired pneumonia: Code(s): J18.9 - Pneumonia, unspecified organism Status: Acute Assessment and Plan: See above (5) Congestive heart failure: Code(s): I50.9 - Heart failure, unspecified Status: Acute Assessment and Plan: Patient has lower extremity edema and chest x-ray suggestive of pulmonary edema Patient likely has cor pulmonale from COPD 02/18/2022 echocardiogram: EF 65-70%, LV diastolic function is normal, dilated inferior vena cava with elevated right atrial pressures -patient on Lasix, currently on hold due to contraction alkalosis and elevated BUN (6) Seizure disorder: Code(s): G40.909 - Epilepsy, unspecified, not intractable, without status epilepticus Status: Acute Assessment and Plan: Continue phenytoin 200 mg q.12 hours (7) Hypertension: Code(s): I10 - Essential (primary) hypertension Status: Acute Assessment and Plan: Blood pressure in controlled range at this time. Monitor Hold p.o. meds Additional Plan DVT prophylaxis -Lovenox Stress ulcer prophylaxis -PPI Nutrition -full liquid diet for now Discussed with patient updated with his condition and plan of care, answered all questions. I did tell him that the COVID-19 may have tipped him into COPD exacerbation as he has severe obstructive lung disease on the PFTs that were done of in January 2022. I did updated that his kidney functions are better, his oxygen requirements are trending down and that we will switch him to a different kind of oxygen support with Airvo/high-flow therapy Code Status -02/18 Dr King discussed with patient in detail about current findings and current treatment p
--- NOTE | 2022-02-23 15:17 | PC.NURSE ---
Patient on phone with spouse. Patient states i m done, I want to give up. Dr. Fisher aware of patient wishes and was notified patient spoke to spouse.
[2022-02-23 18:07] LABS: Glucose Point of Care 154 mg/dl (65-105)
[2022-02-24] VITALS (34 sets, daily range): BP systolic 123–170; BP diastolic 45–103; PULSE 62–96; RESP 18–35; TEMP 36.1–36.8; O2SAT 89–96
[2022-02-24 01:02] LABS: Glucose Point of Care 90 mg/dl (65-105)
[2022-02-24] MEDS: hydrALAZINE HCL 20 MG/ML VIAL IV PUSH (02:15)
[2022-02-24] MEDS: ALBUTEROL SULFATE NEB 2.5 MG/3 ML INH INHALATION ×4 (02:34→20:15)
[2022-02-24] MEDS: IPRATROPIUM BR 0.02% INH SOLN 0.5 MG/2.5 ML VIAL INHALATION ×4 (02:34→20:15)
[2022-02-24 04:59] LABS: Alveolar/Arterial O2 Gradient 172.5 mmHg; Base Excess ABG 9.9 mEq/l (+/-2.0); Carboxyhemoglobin 0.4 % THb (0-2.0); Fractional Inspired Oxygen 45 %; HCO3 ABG 37.6 mEq/l (22.0-26.0); Methemoglobin ABG 0.1 %THb (0-1.5); Oxygen Content ABG 18.5 %vol (16.0-22.0); Oxygen Saturation ABG 94.4 % (95.0-100.0); Oxyhemoglobin 93.1 % THb (90.0-100.0); PO2 FiO2 Ratio Arterial Blood 1.67 %; Reduced Hemoglobin 6.4 %THb (0-5.0); Total Hemoglobin 14.1 g/dL (12.0-18.0); pH ABG 7.383 (7.350-7.450)
[2022-02-24 05:00] LABS: Device HIGH FLOW THERAPY; Modified Allen's Test Pass; PCO2 ABG 64.5 mmHg (35.0-45.0); Site Drawn RIGHT RADIAL
[2022-02-24 05:15] LABS: Basophils Percent Auto 0.6 % (0.2-1.2); Eosinophils Absolute Auto 0.1 K/mm3 (0-0.3); Eosinophils Percent Auto 1.8 % (0-4.4); Hematocrit 35.1 % (42.0-52.0); Hemoglobin 10.4 g/dL (14.0-18.0); Immature Granulocyte Absolute 0.29 K/mm3 (0.00-0.031); Immature Granulocyte Percent A 4.6 % (0-0.5); Lymphocytes Absolute Auto 0.69 K/mm3 (0.9-3.2); Mean Corpuscular HGB Conc 29.6 g/dl (32-36); Mean Corpuscular Volume 104.8 fl (80-100); Mean Platelet Volume 9.5 fl (7.4-10.4); Monocytes Absolute Auto 0.8 K/mm3 (0.1-0.6); Monocytes Percent Auto 13.4 % (2.6-8.5); Neutrophils Absolute Auto 4.3 K/mm3 (1.3-6.7); Neutrophils Percent Auto 68.6 % (45.5-73.1); Platelet Count Result 144 k/mm3 (150-375); Red Blood Count 3.35 M/mm3 (4.6-6.20); Red Cell Distribution Width 15.7 % (11.5-14.5); White Blood Count 6.3 K/mm3 (4.5-10.0)
[2022-02-24 05:24] LABS: Alanine Aminotransferase 23 U/L (6-50); Estimated CRCL calculation 79 ml/min; Estimated Glomerular Filt Rate > 60; Magnesium 2.2 mg/dL (1.6-2.3); Phosphorus 3.8 mg/dL (2.5-4.5)
[2022-02-24 05:28] LABS: INR 1.1
[2022-02-24 06:20] LABS: Anion Gap 7 mmol/L (8-16); Blood Urea Nitrogen 40 mg/dL (9-20); Calcium 8.7 mg/dL (8.4-10.2); Carbon Dioxide 37 mmol/L (22-30); Chloride 98 mmol/L (98-107); Estimated CRCL calculation 79 ml/min; Estimated Glomerular Filt Rate > 60; Glucose 115 mg/dL (65-110); Potassium 4.4 mmol/L (3.4-5.0); Sodium 142 mmol/L (137-145)
--- NOTE | 2022-02-24 08:59 | WPDINTPN ---
Progress Note: A&P Assessment and Plan (1) Acute on chronic respiratory failure with hypoxia and hypercapnia: Code(s): J96.21 - Acute and chronic respiratory failure with hypoxia; J96.22 - Acute and chronic respiratory failure with hypercapnia Status: Acute Assessment and Plan: Multifactorial Acute over chronic Respiratory failure secondary to severe baseline COPD, component of heart failure, COVID-19 pneumonia, and possible bacterial infection Patient has been on AVAPS since admission, will switch patient to high-flow therapy with Airvo Chest x-ray and ABGs reviewed -ABGs have continue to improve . -patient placed on Airvo 02/23, currently on 45% FiO2 and 60 L flow rate and tolerating well. Maintain O2 sats greater than 90% -Continue Dexamethasone, bronchodilators, will re-dose remdesivir for additional 5 days (02/23) 02/18:CT chest without contrast IMPRESSION: Patchy consolidating right lower lobe infiltrate and scattered patchy new bilateral pulmonary infiltrates since 06/26/2021 suggesting multifocal pneumonia superimposed upon chronic interstitial and cystic lung change 02/18/2022: Sputum cultures growing Pseudomonas , susceptible to cefepime. Will continue cefepime and azithromycin (02/19) Patient grew Pseudomonas on his last admission (08/07/21) pansensitive Since he has a mixed picture and CT is not consistent with classical picture for a COVID-19 pneumonia, Dr. King decided not to administer tocilizumab, after discussion with pulmonology (2) Pneumonia due to COVID-19 virus: Code(s): U07.1 - COVID-19; J12.82 - Pneumonia due to coronavirus disease 2019 Status: Acute Assessment and Plan: See above (3) COPD exacerbation: Code(s): J44.1 - Chronic obstructive pulmonary disease with (acute) exacerbation Status: Acute Assessment and Plan: See above PFT's 01/17/22 There is a very severe obstructive abnormality without significant improvement after inhaling a single dose of albuterol. The increase in residual volume is consistent with air trapping from an obstructive abnormality. The diffusing capacity unadjusted for hemoglobin and carboxyhemoglobin is severely decreased and remains moderately decreased when adjusted for alveolar volume. (4) Community acquired pneumonia: Code(s): J18.9 - Pneumonia, unspecified organism Status: Acute Assessment and Plan: See above (5) Congestive heart failure: Code(s): I50.9 - Heart failure, unspecified Status: Acute Assessment and Plan: Patient has lower extremity edema and chest x-ray suggestive of pulmonary edema Patient likely has cor pulmonale from COPD 02/18/2022 echocardiogram: EF 65-70%, LV diastolic function is normal, dilated inferior vena cava with elevated right atrial pressures -patient on Lasix, currently on hold due to contraction alkalosis and elevated BUN (6) Seizure disorder: Code(s): G40.909 - Epilepsy, unspecified, not intractable, without status epilepticus Status: Acute Assessment and Plan: Continue phenytoin 200 mg q.12 hours (7) Hypertension: Code(s): I10 - Essential (primary) hypertension Status: Acute Assessment and Plan: Blood pressure in controlled range at this time. Monitor Will restart his blood pressure medications along with statin,Aspirin, Plavix which were his home meds Additional Plan DVT prophylaxis -Lovenox Stress ulcer prophylaxis -PPI Nutrition -fHeart healthy diet 02/24: Discussed with patient updated with his condition and plan of care, answered all questions. I did tell him that the COVID-19 may have tipped him into COPD exacerbation as he has severe obstructive lung disease on the PFTs that were done of in January 2022. I did updated that his kidney functions are better, his oxygen requirements are trending down. He is more comfortable on the Airvo. He is sitting up in the chair Code Status -02/18 Dr King discussed
[2022-02-24] MEDS: PANTOPRAZOLE SODIUM IV 40 MG VIAL IV PUSH (09:12)
[2022-02-24] MEDS: ENOXAPARIN 40 MG/0.4 ML SYRINGE SUB-Q (09:14)
[2022-02-24] MEDS: CLOPIDOGREL BISULFATE 75 MG TABLET PO (09:15)
[2022-02-24] MEDS: PHENYTOIN SODIUM 100 MG EXTENDED RELEASE CAP 200 MG PO ×2 (09:15→21:05)
[2022-02-24] MEDS: TOPIRAMATE 25 MG TABLET PO (09:15)
[2022-02-24] MEDS: FLUoxetine HCL 20 MG CAPSULE PO ×2 (09:16→21:05)
[2022-02-24] MEDS: ASPIRIN 81 MG ENTERIC TABLET PO (09:16)
[2022-02-24] MEDS: hydroCHLOROthiazide 12.5 MG CAPSULE PO (09:17)
[2022-02-24] MEDS: lisinopriL 20 MG TABLET PO (09:17)
[2022-02-24] MEDS: REMDESIVIR 100 MG/NS 250 ML 100 MG/250 ML BAG 250 MG IVPB (10:47)
--- NOTE | 2022-02-24 11:35 | WPDCDIQUERY2 ---
CDI Query Clarification Request 02/24 Speech Language Pathologist Prn documented: Congestive heart failure: Code(s): I50.9 - Heart failure, unspecified Status: Acute Assessment and Plan: Patient has lower extremity edema and chest x-ray suggestive of pulmonary edema Patient likely has cor pulmonale from COPD 02/18/2022 echocardiogram: EF 65-70%, LV diastolic function is normal, dilated inferior vena cava with elevated right atrial pressures -patient on Lasix, currently on hold due to contraction alkalosis and elevated BUN CXR 02/24 results: Ordering Physician: Cleve Fisher MD Date of Service: 02/24/22 Procedure(s): XR chest 1V portable Accession Number(s): [id number] cc: Joaquin Rees MD; Cleve Fisher MD; Jose Guadalupe, Philip SETH EXAMINATION: XR chest 1V portable INDICATION: COVID 19 pneumonia TECHNIQUE: Portable AP chest at 0515 hours COMPARISON: 02/23/2022 FINDINGS: Patchy bilateral opacities persist without significant change. There is no pleural effusion or pneumothorax. The cardiomediastinal silhouette is stable. IMPRESSION: 1. Stable diffuse lung disease, consistent with pneumonia and/or pulmonary edema. Please clarify if diagnosis Congestive Heart Failure is Systolic, Diastolic, combined, other or undetermined. For coding purposes, lab values/reports cannot be used for diagnosis
--- NOTE | 2022-02-24 11:51 | PCNFU ---
Nutrition Follow-Up Complete: Inadequate Oral Intake as related to COVID pneumonia as evidenced by poor po intake. Goal: Adequate Intake of at least 75% of meals/supplements Patient has limited progress towards goal. We will continue current goal. Pt current nutrition is Heart Healthy with diet supplements Last recorded weight is 102.1 kg, up from 97.5 kg on admit. Bowel Motility:+Bm reported 02/24 Labs Reviewed:Hct 35.1,Hgb 10.4,Glu 113,BUN 40 Meds Noted:Albuterol, Lipitor, Zithromax,Maxipime, Plavix, Remdesivir, Decadron, Topamax, Lovenox, Atrovent, Protonix. Skin: WNL Additional Notes: Patient currently on heart healthy diet. Breakfast today patient had eggs. Diet supplements orders for Ensure Enlive BID and Nutritional Ice cream providing an additional 290 kcals and 9 gms protein. O2 requirements high flow with Airvo. Patient was up in the chair today. PO intake encouraged. Agree with diet orders. Monitoring in ICU rounds and reassessing every 3 days.
[2022-02-24] MEDS: INSULIN ASPART (*BKC) 100 UNITS/ML SUB-Q (12:05)
[2022-02-24 12:20] LABS: Glucose Point of Care 240 mg/dl (65-105)
[2022-02-24] MEDS: ATORVASTATIN 40 MG TABLET PO (21:05)
[2022-02-24 21:21] LABS: Glucose Point of Care 147 mg/dl (65-105)
[2022-02-25] VITALS (33 sets, daily range): BP systolic 127–162; BP diastolic 59–100; PULSE 59–80; RESP 16–27; TEMP 36.1–37.2; O2SAT 87–100
[2022-02-25] MEDS: ACETAMINOPHEN 500 MG TABLET 1000 MG PO (02:33)
[2022-02-25] MEDS: ALBUTEROL SULFATE NEB 2.5 MG/3 ML INH INHALATION ×3 (02:38→20:05)
[2022-02-25] MEDS: IPRATROPIUM BR 0.02% INH SOLN 0.5 MG/2.5 ML VIAL INHALATION ×3 (02:39→20:05)
[2022-02-25 04:47] LABS: Anion Gap 2 mmol/L (8-16); Blood Urea Nitrogen 36 mg/dL (9-20); Calcium 8.7 mg/dL (8.4-10.2); Carbon Dioxide 39 mmol/L (22-30); Chloride 94 mmol/L (98-107); Estimated CRCL calculation 81 ml/min; Estimated Glomerular Filt Rate > 60; Glucose 97 mg/dL (65-110); Magnesium 2.2 mg/dL (1.6-2.3); Phosphorus 4.6 mg/dL (2.5-4.5); Potassium 4.7 mmol/L (3.4-5.0); Sodium 135 mmol/L (137-145)
[2022-02-25 05:47] LABS: Alveolar/Arterial O2 Gradient 153.5 mmHg; Base Excess ABG 11.5 mEq/l (+/-2.0); Carboxyhemoglobin 0.1 % THb (0-2.0); Fractional Inspired Oxygen 45 %; HCO3 ABG 40.3 mEq/l (22.0-26.0); Methemoglobin ABG 0.2 %THb (0-1.5); Oxygen Content ABG 16.5 %vol (16.0-22.0); Oxygen Saturation ABG 94.6 % (95.0-100.0); Oxyhemoglobin 93.6 % THb (90.0-100.0); PO2 ABG 80.3 mmHg (80.0-100.0); PO2 FiO2 Ratio Arterial Blood 1.78 %; Reduced Hemoglobin 6.1 %THb (0-5.0); Total Hemoglobin 12.5 g/dL (12.0-18.0); pH ABG 7.339 (7.350-7.450)
[2022-02-25 05:50] LABS: Device NON-INVASIVE VENT; Modified Allen's Test Pass; PCO2 ABG 76.5 mmHg (35.0-45.0); Site Drawn RIGHT RADIAL
[2022-02-25 05:51] LABS: Non-Invasive Expiratory Pressure 6 CMH2O; Non-Invasive Vent Rate 16 /MIN
[2022-02-25 05:52] LABS: Non-Invasive Inspiratory Pressure 30 CMH2O
[2022-02-25 06:03] LABS: Glucose Point of Care 147 mg/dl (65-105)
[2022-02-25 06:52] LABS: Basophils Percent Auto 0.6 % (0.2-1.2); Eosinophils Absolute Auto 0.2 K/mm3 (0-0.3); Eosinophils Percent Auto 3.8 % (0-4.4); Hematocrit 34.2 % (42.0-52.0); Hemoglobin 10.2 g/dL (14.0-18.0); Immature Granulocyte Absolute 0.29 K/mm3 (0.00-0.031); Immature Granulocyte Percent A 4.6 % (0-0.5); Lymphocytes Absolute Auto 0.84 K/mm3 (0.9-3.2); Lymphocytes Percent Auto 13.2 % (18.3-44.2); Mean Corpuscular HGB Conc 29.8 g/dl (32-36); Mean Corpuscular Hemoglobin 30.9 pg (26-34); Mean Corpuscular Volume 103.6 fl (80-100); Mean Platelet Volume 9.4 fl (7.4-10.4); Monocytes Absolute Auto 0.9 K/mm3 (0.1-0.6); Monocytes Percent Auto 13.7 % (2.6-8.5); Neutrophils Absolute Auto 4.1 K/mm3 (1.3-6.7); Neutrophils Percent Auto 64.1 % (45.5-73.1); Platelet Count Result 171 k/mm3 (150-375); Red Cell Distribution Width 15.8 % (11.5-14.5); White Blood Count 6.4 K/mm3 (4.5-10.0)
[2022-02-25 07:13] LABS: Alanine Aminotransferase 21 U/L (6-50); INR 1.1; Prothrombin Time 13.9 Seconds (11.1-14.7)
[2022-02-25] MEDS: PHENYTOIN SODIUM 100 MG EXTENDED RELEASE CAP 200 MG PO ×2 (08:48→20:43)
[2022-02-25] MEDS: PANTOPRAZOLE SODIUM IV 40 MG VIAL IV PUSH (08:48)
[2022-02-25] MEDS: lisinopriL 20 MG TABLET PO (08:48)
[2022-02-25] MEDS: TOPIRAMATE 25 MG TABLET PO (08:48)
[2022-02-25] MEDS: hydroCHLOROthiazide 12.5 MG CAPSULE PO (08:49)
[2022-02-25] MEDS: ASPIRIN 81 MG ENTERIC TABLET PO (08:49)
[2022-02-25] MEDS: CLOPIDOGREL BISULFATE 75 MG TABLET PO (08:49)
[2022-02-25] MEDS: ENOXAPARIN 40 MG/0.4 ML SYRINGE SUB-Q (08:49)
[2022-02-25] MEDS: FLUoxetine HCL 20 MG CAPSULE PO ×2 (08:49→20:43)
[2022-02-25] MEDS: REMDESIVIR 100 MG/NS 250 ML 100 MG/250 ML BAG 250 MG IVPB (09:54)
--- NOTE | 2022-02-25 10:11 | PM.IMPN ---
Progress Note: A&P Assessment and Plan (1) Acute on chronic respiratory failure with hypoxia and hypercapnia: Code(s): J96.21 - Acute and chronic respiratory failure with hypoxia; J96.22 - Acute and chronic respiratory failure with hypercapnia Status: Acute Assessment and Plan: Currently on Airvo -Continue Dexamethasone, bronchodilators, will re-dose remdesivir for additional 5 days (02/23) +sputum cx - on abx for pna (2) Pneumonia due to COVID-19 virus: Code(s): U07.1 - COVID-19; J12.82 - Pneumonia due to coronavirus disease 2018 Status: Acute Assessment and Plan: See above (3) COPD exacerbation: Code(s): J44.1 - Chronic obstructive pulmonary disease with (acute) exacerbation Status: Acute Assessment and Plan: monitor continue suppoortive care (4) Community acquired pneumonia: Code(s): J18.9 - Pneumonia, unspecified organism Status: Acute Assessment and Plan: See above (5) Congestive heart failure: Code(s): I50.9 - Heart failure, unspecified Status: Acute Assessment and Plan: monitor volume status (6) Seizure disorder: Code(s): G40.909 - Epilepsy, unspecified, not intractable, without status epilepticus Status: Acute Assessment and Plan: Continue phenytoin 200 mg q.12 hours (7) Hypertension: Code(s): I10 - Essential (primary) hypertension Status: Acute Assessment and Plan: Monitor Subjective Date/time seen: 02/25/22 10:11 currently on Airvo no new complaints Exam Narrative: General: Pt is alert awake and on airvo Lungs/Chest: Trachea central Clear BS B/L, bilateral crackles present no respiratory distress or use of accessory muscles Decreased air entry bilaterally Cardiac: RRR. Normal S1 S2. No murmurs Circulation: Feet are warm. Abdomen: Normal bowel sounds. Obese. Soft. NT. ND. Extremities: No clubbing, cyanosis, bilateral lower extremity pitting edema, Warm : Medel in place Neurologic: Follows commands. Moves all 4 extremities PERRL AO x3 follows commands with all 4 extremities Skin: No Rash Objective Data Vital Signs Vital Signs: Vital Signs - 24 hr 02/24/22 10:26 02/24/22 12:00 02/24/22 14:00 Temperature 97.0 F L 97.0 F L Pulse Rate 75 74 Respiratory Rate 32 H 28 H Blood Pressure 156/70 H 158/69 H Pulse Oximetry 96 90 91 02/24/22 14:15 02/24/22 14:16 02/24/22 14:26 Temperature Pulse Rate 81 78 Respiratory Rate 24 H 22 H Blood Pressure Pulse Oximetry 95 02/24/22 14:27 02/24/22 15:05 02/24/22 16:00 Temperature 97.3 F L Pulse Rate 69 65 Respiratory Rate 22 H 26 H Blood Pressure 150/67 H Pulse Oximetry 94 91 92 02/24/22 16:41 02/24/22 18:00 02/24/22 20:00 Temperature 97.5 F L 98.2 F Pulse Rate 71 78 82 Respiratory Rate 20 18 28 H Blood Pressure 155/70 H 164/65 H Pulse Oximetry 93 92 94 02/24/22 20:19 02/24/22 20:29 02/24/22 21:00 Temperature Pulse Rate 75 75 Respiratory Rate 24 H 24 H Blood Pressure Pulse Oximetry 96 92 02/24/22 21:17 02/24/22 22:00 02/24/22 22:15 Temperature 98.3 F Pulse Rate 66 79 62 Respiratory Rate 26 H 24 H 24 H Blood Pressure 150/67 H 154/77 H Pulse Oximetry 96 96 96 02/25/22 00:00 02/25/22 00:56 02/25/22 02:00 Temperature 97.7 F 97.4 F L Pulse Rate 70 65 75 Respiratory Rate 22 H 25 H 23 H Blood Pressure 127/100 H 154/73 H Pulse Oximetry 97 92 93 02/25/22 02:39 02/25/22 02:49 02/25/22 04:00 Temperature 97.4 F L Pulse Rate 67 67 72 Respiratory Rate 26 H 27 H 25 H Blood Pressure 143/79 H Pulse Oximetry 93 92 02/25/22 05:30 02/25/22 05:47 02/25/22 05:53 Temperature Pulse Rate 64 64 Respiratory Rate 24 H 24 H Blood Pressure Pulse Oximetry 92 94 92 02/25/22 05:54 02/25/22 06:00 02/25/22 08:00 Temperature 97.3 F L Pulse Rate 68 68 Respiratory Rate 24 H 24 H Blood Pressure 142/59 H Pulse Oximetry 92 93 93 0
--- NOTE | 2022-02-25 11:19 | WPDINTPN ---
Progress Note: A&P Assessment and Plan (1) Acute on chronic respiratory failure with hypoxia and hypercapnia: Code(s): J96.21 - Acute and chronic respiratory failure with hypoxia; J96.22 - Acute and chronic respiratory failure with hypercapnia Status: Acute Assessment and Plan: Multifactorial Acute over chronic Respiratory failure secondary to severe baseline COPD, component of heart failure, COVID-19 pneumonia, and possible bacterial infection Patient has been on Airvo 40% FiO2 and 40 L flow rate and tolerating well with adequate O2 sats. -patient is on BiPAP/AVAPS overnight Chest x-ray and ABGs reviewed -will continue to wean FiO2 to maintain O2 sats greater than 90% -Continue Dexamethasone, bronchodilators, on 2nd round of remdesivir for additional 5 days (02/23) 02/18:CT chest without contrast IMPRESSION: Patchy consolidating right lower lobe infiltrate and scattered patchy new bilateral pulmonary infiltrates since 06/26/2021 suggesting multifocal pneumonia superimposed upon chronic interstitial and cystic lung change 02/18/2022: Sputum cultures growing Pseudomonas , susceptible to cefepime. Will continue cefepime and azithromycin (02/19) Patient grew Pseudomonas on his last admission (08/07/21) pansensitive Since he has a mixed picture and CT is not consistent with classical picture for a COVID-19 pneumonia, Dr. King decided not to administer tocilizumab, after discussion with pulmonology (2) Pneumonia due to COVID-19 virus: Code(s): U07.1 - COVID-19; J12.82 - Pneumonia due to coronavirus disease 2018 Status: Acute Assessment and Plan: See above (3) COPD exacerbation: Code(s): J44.1 - Chronic obstructive pulmonary disease with (acute) exacerbation Status: Acute Assessment and Plan: See above PFT's 01/17/22 There is a very severe obstructive abnormality without significant improvement after inhaling a single dose of albuterol. The increase in residual volume is consistent with air trapping from an obstructive abnormality. The diffusing capacity unadjusted for hemoglobin and carboxyhemoglobin is severely decreased and remains moderately decreased when adjusted for alveolar volume. (4) Community acquired pneumonia: Code(s): J18.9 - Pneumonia, unspecified organism Status: Acute Assessment and Plan: See above (5) Congestive heart failure: Code(s): I50.9 - Heart failure, unspecified Status: Acute Assessment and Plan: Patient has lower extremity edema and chest x-ray suggestive of pulmonary edema Patient likely has cor pulmonale from COPD 02/18/2022 echocardiogram: EF 65-70%, LV diastolic function is normal, dilated inferior vena cava with elevated right atrial pressures -patient on Lasix, currently on hold due to contraction alkalosis and elevated BUN (6) Seizure disorder: Code(s): G40.909 - Epilepsy, unspecified, not intractable, without status epilepticus Status: Acute Assessment and Plan: Continue phenytoin 200 mg q.12 hours (7) Hypertension: Code(s): I10 - Essential (primary) hypertension Status: Acute Assessment and Plan: Blood pressure in controlled range at this time. Monitor Continue home blood pressure medicationswith statin,Aspirin, Plavix Additional Plan DVT prophylaxis -Lovenox Stress ulcer prophylaxis -PPI Nutrition -Heart healthy diet Discussed with hospitalist, lalito Gibbs to transfer to intermediate Unit 02/25: Discussed with patient updated with his condition and plan of care, answered all questions. I did tell him that the COVID-19 may have tipped him into COPD exacerbation as he has severe obstructive lung disease on the PFTs that were done of in January 2022. I did updated that his kidney functions are better, his oxygen requirements are trending down. He is more comfortable on the Airvo. He is sitting up in the chair Code Status -02/18 Dr King discussed with lita
[2022-02-25] MEDS: ATORVASTATIN 40 MG TABLET PO (20:43)
[2022-02-26] VITALS (26 sets, daily range): BP systolic 124–159; BP diastolic 52–65; PULSE 58–79; RESP 19–25; TEMP 35.8–36.9; O2SAT 92–100
[2022-02-26] MEDS: ALBUTEROL SULFATE NEB 2.5 MG/3 ML INH INHALATION ×4 (02:05→20:30)
[2022-02-26] MEDS: IPRATROPIUM BR 0.02% INH SOLN 0.5 MG/2.5 ML VIAL INHALATION ×4 (02:05→20:30)
[2022-02-26 04:51] LABS: Basophils Absolute Auto 0.1 K/mm3 (0.0-0.1); Basophils Percent Auto 0.9 % (0.2-1.2); Eosinophils Absolute Auto 0.4 K/mm3 (0-0.3); Eosinophils Percent Auto 6.5 % (0-4.4); Hemoglobin 10.5 g/dL (14.0-18.0); Immature Granulocyte Absolute 0.27 K/mm3 (0.00-0.031); Lymphocytes Absolute Auto 0.79 K/mm3 (0.9-3.2); Lymphocytes Percent Auto 14.6 % (18.3-44.2); Mean Corpuscular Hemoglobin 31.8 pg (26-34); Mean Corpuscular Volume 106.1 fl (80-100); Mean Platelet Volume 9.6 fl (7.4-10.4); Monocytes Absolute Auto 0.8 K/mm3 (0.1-0.6); Monocytes Percent Auto 14.6 % (2.6-8.5); Neutrophils Absolute Auto 3.2 K/mm3 (1.3-6.7); Neutrophils Percent Auto 58.4 % (45.5-73.1); Platelet Count Result 184 k/mm3 (150-375); Red Cell Distribution Width 15.7 % (11.5-14.5); White Blood Count 5.4 K/mm3 (4.5-10.0)
[2022-02-26 05:09] LABS: Alanine Aminotransferase 20 U/L (6-50); Blood Urea Nitrogen 30 mg/dL (9-20); Calcium 8.8 mg/dL (8.4-10.2); Carbon Dioxide > 40 mmol/L (22-30); Chloride 96 mmol/L (98-107); Estimated CRCL calculation 80 ml/min; Estimated Glomerular Filt Rate > 60; Glucose 91 mg/dL (65-110); Magnesium 2.2 mg/dL (1.6-2.3); Phosphorus 5.6 mg/dL (2.5-4.5); Sodium 143 mmol/L (137-145)
[2022-02-26 05:43] LABS: Alveolar/Arterial O2 Gradient 200.6 mmHg; Base Excess ABG 11.4 mEq/l (+/-2.0); Carboxyhemoglobin 0.5 % THb (0-2.0); Fractional Inspired Oxygen 55 %; Methemoglobin ABG 0.1 %THb (0-1.5); Oxygen Saturation ABG 95.4 % (95.0-100.0); Oxyhemoglobin 95.1 % THb (90.0-100.0); PO2 ABG 90.8 mmHg (80.0-100.0); PO2 FiO2 Ratio Arterial Blood 1.65 %; Reduced Hemoglobin 4.3 %THb (0-5.0); Total Hemoglobin 13.4 g/dL (12.0-18.0); pH ABG 7.284 (7.350-7.450)
[2022-02-26 05:44] LABS: Device OTHER DEVICE; Modified Allen's Test Pass; PCO2 ABG 90.6 mmHg (35.0-45.0); Site Drawn RIGHT RADIAL
[2022-02-26 07:26] LABS: INR 1.1; Prothrombin Time 13.5 Seconds (11.1-14.7)
[2022-02-26] MEDS: PHENYTOIN SODIUM 100 MG EXTENDED RELEASE CAP 200 MG PO ×2 (08:54→20:11)
[2022-02-26] MEDS: ASPIRIN 81 MG ENTERIC TABLET PO (08:54)
[2022-02-26] MEDS: hydroCHLOROthiazide 12.5 MG CAPSULE PO (08:54)
[2022-02-26] MEDS: lisinopriL 20 MG TABLET PO (08:55)
[2022-02-26] MEDS: TOPIRAMATE 25 MG TABLET PO (08:55)
[2022-02-26] MEDS: PANTOPRAZOLE SODIUM IV 40 MG VIAL IV PUSH (08:55)
[2022-02-26] MEDS: CLOPIDOGREL BISULFATE 75 MG TABLET PO (08:55)
[2022-02-26] MEDS: FLUoxetine HCL 20 MG CAPSULE PO ×2 (08:55→20:10)
[2022-02-26] MEDS: ENOXAPARIN 40 MG/0.4 ML SYRINGE SUB-Q (08:55)
[2022-02-26] MEDS: REMDESIVIR 100 MG/NS 250 ML 100 MG/250 ML BAG 250 MG IVPB (11:12)
--- NOTE | 2022-02-26 11:29 | PM.PNPUL ---
Progress Note: A&P Assessment and Plan (1) Acute on chronic respiratory failure with hypoxia and hypercapnia: Code(s): J96.21 - Acute and chronic respiratory failure with hypoxia; J96.22 - Acute and chronic respiratory failure with hypercapnia Status: Acute Assessment and Plan: 71-year-old man with advanced COPD, chronic hypoxemic hypercapnic respiratory failure, on home oxygen and BiPAP support at home, history of bronchiectasis with previous Pseudomonas growth sensitive to antibiotics, presented with a acute on chronic hypercapnic respiratory failure hypoxemia related to COVID-19 infection. The patient was treated in the intensive care unit and has received noninvasive ventilatory support via BiPAP also on medications for COVID-19 infection and antibiotics for possible bacterial coinfection. Respiratory status has improved and patient was transferred to [facility]. Today's blood gases showed hypercapnic respiratory acidosis with a lower pH while the patient was off BiPAP on high-flow nasal cannula. Chest x-ray showed no significant change management manager the last for 8 hours. Has no leukocytosis. Plan: Will continue with BiPAP support for most of the day, and also at night, continue with current antibiotic regimen and also treatment for COVID-19 infection. Monitor arterial blood gases. (2) Pneumonia due to COVID-19 virus: Code(s): U07.1 - COVID-19; J12.82 - Pneumonia due to coronavirus disease 2019 Status: Acute (3) Chronic obstructive pulmonary disease: Code(s): J44.9 - Chronic obstructive pulmonary disease, unspecified Status: Acute (4) Bronchiectasis: Qualifiers: Bronchiectasis type: uncomplicated Qualified Code(s): J47.9 - Bronchiectasis, uncomplicated Code(s): J47.9 - Bronchiectasis, uncomplicated Status: Acute Subjective Date/time seen: 02/26/22 11:29 Patient has no new respiratory symptoms. Transferred to [facility]. denied having cough, wheezing shortness of breath or fever. Remaining on BiPAP support at night. Currently on high-flow nasal cannula for breakfast. Still on treatment for COVID-19 infection and also on antibiotics for possible co infection. He has got severe COPD with bronchiectasis, chronic hypoxemic hypercapnic respiratory failure on ventilatory support at home via BiPAP. Review of Systems Review of Systems: All systems reviewed & are unremarkable except as noted in HPI and below Exam Narrative: GENERAL APPEARANCE: Well developed, well nourished, alert and cooperative, and appears to be in no acute distress While on high-flow nasal cannula SKIN: Inspection of the skin reveals no rashes, ulcerations or petechiae. HEENT: Sclerae anicteric and conjunctivae pink and moist. Extraocular movements were intact and pupils were equal. NECK: Supple. There was no thyroid enlargement, and no tenderness, or masses were felt. CHEST: Normal AP diameter and normal contour without any kyphoscoliosis. LUNGS: Auscultation of the lungs revealed distant breath sounds bilaterally with rare crackles at bases posteriorly no wheezing CARDIAC: There was a regular rate and rhythm without any murmurs. ABDOMEN: Soft and nontender with normal bowel sounds. There was no organomegaly. LYMPH NODES: No lymphadenopathy was appreciated in the neck. EXTREMITIES: No cyanosis, clubbing or edema. NEUROLOGIC: Alert and oriented x 3. Normal affect. Objective Data Vital Signs Vital Signs: Vital Signs - 24 hr 02/25/22 12:00 02/25/22 12:01 02/25/22 13:02 Temperature 36.1 C L 36.2 C L Pulse Rate 62 59 L 69 Respiratory Rate 25 H 27 H Blood Pressure 159/72 H 151/66 H Pulse Oximetry 90 95 91 Pulse Oximetry [With Activity During Therapy Session] 02/25/22 13:50 02/25/22 14:00 02/25/22 16:00 Temperature 36.2 C L 36.5 C Pulse Rate 71 66 Respiratory Rate 21 H 16 Blood Pressure 148/68 H Pulse Oximetry 92 94 Pulse Oximetry [With Activity During
--- NOTE | 2022-02-26 11:41 | PM.IMPN ---
Progress Note: A&P Assessment and Plan (1) Acute on chronic respiratory failure with hypoxia and hypercapnia: Code(s): J96.21 - Acute and chronic respiratory failure with hypoxia; J96.22 - Acute and chronic respiratory failure with hypercapnia Status: Acute Assessment and Plan: Multifactorial Acute over chronic Respiratory failure secondary to severe baseline COPD, component of heart failure, COVID-19 pneumonia, and possible bacterial infection Continue airvo and monitor respiratory status. -Continue Dexamethasone, bronchodilators, on 2nd round of remdesivir for additional 5 days (02/23) -on antibiotics for possible bacterial superinfection (2) Pneumonia due to COVID-19 virus: Code(s): U07.1 - COVID-19; J12.82 - Pneumonia due to coronavirus disease 2019 Status: Acute Assessment and Plan: See above (3) COPD exacerbation: Code(s): J44.1 - Chronic obstructive pulmonary disease with (acute) exacerbation Status: Acute Assessment and Plan: Continue supportive care. (4) Community acquired pneumonia: Code(s): J18.9 - Pneumonia, unspecified organism Status: Acute Assessment and Plan: See above (5) Congestive heart failure: Code(s): I50.9 - Heart failure, unspecified Status: Acute Assessment and Plan: Monitor volume status. (6) Seizure disorder: Code(s): G40.909 - Epilepsy, unspecified, not intractable, without status epilepticus Status: Acute Assessment and Plan: Continue phenytoin 200 mg q.12 hours (7) Hypertension: Code(s): I10 - Essential (primary) hypertension Status: Acute Assessment and Plan: Blood pressure in controlled range at this time. Monitor Continue home blood pressure medicationswith statin,Aspirin, Plavix Subjective Date/time seen: 02/26/22 11:41 doing about the same bipap overnight - co2 retention on abg appears to be about the same, no worsening sob subjectively Exam Narrative: General: Pt is alert awake and on airvo Lungs/Chest: Trachea central Clear BS B/L, bilateral crackles present no respiratory distress or use of accessory muscles Decreased air entry bilaterally Cardiac: RRR. Normal S1 S2. No murmurs Circulation: Feet are warm. Abdomen: Normal bowel sounds. Obese. Soft. NT. ND. Extremities: No clubbing, cyanosis, bilateral lower extremity pitting edema, Warm : Medel in place Neurologic: Follows commands. Moves all 4 extremities PERRL AO x3 follows commands with all 4 extremities Skin: No Rash Objective Data Vital Signs Vital Signs: Vital Signs - 24 hr 02/25/22 12:00 02/25/22 12:01 02/25/22 13:02 Temperature 97.0 F L 97.1 F L Pulse Rate 62 59 L 69 Respiratory Rate 25 H 27 H Blood Pressure 159/72 H 151/66 H Pulse Oximetry 90 95 91 Pulse Oximetry [With Activity During Therapy Session] 02/25/22 13:50 02/25/22 14:00 02/25/22 16:00 Temperature 97.1 F L 97.7 F Pulse Rate 71 66 Respiratory Rate 21 H 16 Blood Pressure 148/68 H Pulse Oximetry 92 94 Pulse Oximetry [With Activity During Therapy Session] 87 L 02/25/22 18:00 02/25/22 19:22 02/25/22 20:00 Temperature 97.6 F Pulse Rate 62 67 67 Respiratory Rate 24 H Blood Pressure 150/62 H Pulse Oximetry 98 99 Pulse Oximetry [With Activity During Therapy Session] 02/25/22 20:05 02/25/22 20:15 02/25/22 20:22 Temperature Pulse Rate 76 76 80 Respiratory Rate 26 H 26 H 26 H Blood Pressure Pulse Oximetry 93 Pulse Oximetry [With Activity During Therapy Session] 02/25/22 23:33 02/26/22 00:00 02/26/22 00:05 Temperature 98.9 F Pulse Rate 65 59 L 58 L Respiratory Rate 22 H 21 H Blood Pressure 162/65 H Pulse Oximetry 100 99 100 Pulse Oximetry [With Activity During Therapy Session] 02/26/22 01:00 02/26/22 02:05 02/26/22 02:28 Temperature Pulse Rate 61 69 Respiratory Rate 20 20 Blood Pressure Pulse Oximetry 99 Pulse Oximetry [With
[2022-02-26 11:44] LABS: Alveolar/Arterial O2 Gradient 171.1 mmHg; Base Excess ABG 9.9 mEq/l (+/-2.0); Fractional Inspired Oxygen 46 %; HCO3 ABG 39.1 mEq/l (22.0-26.0); Oxygen Content ABG 14.2 %vol (16.0-22.0); Oxygen Saturation ABG 88.9 % (95.0-100.0); Oxyhemoglobin 89.3 % THb (90.0-100.0); PO2 FiO2 Ratio Arterial Blood 1.39 %; Total Hemoglobin 11.3 g/dL (12.0-18.0)
[2022-02-26 11:46] LABS: Device HIGH FLOW THERAPY; Modified Allen's Test Pass; PCO2 ABG 81.8 mmHg (35.0-45.0); Site Drawn RIGHT RADIAL; pH ABG 7.297 (7.350-7.450)
[2022-02-26 17:21] LABS: Alveolar/Arterial O2 Gradient 126.8 mmHg; Base Excess ABG 11.2 mEq/l (+/-2.0); Fractional Inspired Oxygen 40 %; HCO3 ABG 40.1 mEq/l (22.0-26.0); Oxygen Content ABG 16.1 %vol (16.0-22.0); Oxygen Saturation ABG 91.8 % (95.0-100.0); Oxyhemoglobin 92.1 % THb (90.0-100.0); PO2 ABG 69.2 mmHg (80.0-100.0); PO2 FiO2 Ratio Arterial Blood 1.73 %; Total Hemoglobin 12.4 g/dL (12.0-18.0); pH ABG 7.331 (7.350-7.450)
[2022-02-26 17:22] LABS: Device HIGH FLOW THERAPY; Modified Allen's Test Pass; PCO2 ABG 77.6 mmHg (35.0-45.0); Site Drawn RIGHT RADIAL
[2022-02-26] MEDS: ATORVASTATIN 40 MG TABLET PO (20:11)
[2022-02-27] VITALS (25 sets, daily range): BP systolic 107–162; BP diastolic 46–65; PULSE 62–110; RESP 19–26; TEMP 36.1–36.8; O2SAT 93–99
[2022-02-27] MEDS: ALBUTEROL SULFATE NEB 2.5 MG/3 ML INH INHALATION ×2 (02:02→21:12)
[2022-02-27] MEDS: IPRATROPIUM BR 0.02% INH SOLN 0.5 MG/2.5 ML VIAL INHALATION ×4 (02:02→21:13)
[2022-02-27 05:37] LABS: Alveolar/Arterial O2 Gradient 155.2 mmHg; Base Excess ABG 14.7 mEq/l (+/-2.0); Carboxyhemoglobin 0.2 % THb (0-2.0); Fractional Inspired Oxygen 45 %; HCO3 ABG 43.9 mEq/l (22.0-26.0); Oxygen Content ABG 14.8 %vol (16.0-22.0); Oxygen Saturation ABG 91.7 % (95.0-100.0); Oxyhemoglobin 91.8 % THb (90.0-100.0); PO2 ABG 69.4 mmHg (80.0-100.0); PO2 FiO2 Ratio Arterial Blood 1.54 %; Total Hemoglobin 11.4 g/dL (12.0-18.0); pH ABG 7.333 (7.350-7.450)
[2022-02-27 05:39] LABS: Device NON-INVASIVE VENT; Modified Allen's Test Pass; PCO2 ABG 84.6 mmHg (35.0-45.0); Site Drawn RIGHT RADIAL
[2022-02-27 05:40] LABS: Non-Invasive Expiratory Pressure 6 CMH2O; Non-Invasive Vent Rate 16 /MIN
[2022-02-27 05:56] LABS: Basophils Absolute Auto 0.1 K/mm3 (0.0-0.1); Basophils Percent Auto 0.6 % (0.2-1.2); Eosinophils Absolute Auto 0.4 K/mm3 (0-0.3); Eosinophils Percent Auto 4.7 % (0-4.4); Hematocrit 34.9 % (42.0-52.0); Hemoglobin 10.4 g/dL (14.0-18.0); Immature Granulocyte Absolute 0.32 K/mm3 (0.00-0.031); Lymphocytes Absolute Auto 0.85 K/mm3 (0.9-3.2); Lymphocytes Percent Auto 10.5 % (18.3-44.2); Mean Corpuscular HGB Conc 29.8 g/dl (32-36); Mean Corpuscular Hemoglobin 31.5 pg (26-34); Mean Corpuscular Volume 105.8 fl (80-100); Mean Platelet Volume 9.9 fl (7.4-10.4); Monocytes Percent Auto 12.6 % (2.6-8.5); Neutrophils Absolute Auto 5.5 K/mm3 (1.3-6.7); Neutrophils Percent Auto 67.6 % (45.5-73.1); Platelet Count Result 217 k/mm3 (150-375); Red Cell Distribution Width 15.8 % (11.5-14.5); White Blood Count 8.1 K/mm3 (4.5-10.0)
[2022-02-27 06:00] LABS: Prothrombin Time 12.8 Seconds (11.1-14.7)
[2022-02-27 06:09] LABS: Anion Gap 10 mmol/L (8-16); Blood Urea Nitrogen 31 mg/dL (9-20); Calcium 7.9 mg/dL (8.4-10.2); Carbon Dioxide 36 mmol/L (22-30); Chloride 91 mmol/L (98-107); Estimated CRCL calculation 89 ml/min; Estimated Glomerular Filt Rate > 60; Glucose 94 mg/dL (65-110); Potassium 4.9 mmol/L (3.4-5.0); Sodium 137 mmol/L (137-145)
[2022-02-27 06:40] LABS: NT Pro B Type Natriuretic Pept 105 pg/mL (5-100)
[2022-02-27 08:23] LABS: Alanine Aminotransferase 23 U/L (6-50)
[2022-02-27] MEDS: ALBUTEROL SULFATE NEB 2.5 MG/0.5 ML INH ×2 (08:25→13:56)
[2022-02-27] MEDS: CLOPIDOGREL BISULFATE 75 MG TABLET PO (11:14)
[2022-02-27] MEDS: ASPIRIN 81 MG ENTERIC TABLET PO (11:14)
[2022-02-27] MEDS: ENOXAPARIN 40 MG/0.4 ML SYRINGE SUB-Q (11:16)
[2022-02-27] MEDS: FLUoxetine HCL 20 MG CAPSULE PO ×2 (11:17→20:14)
[2022-02-27] MEDS: PANTOPRAZOLE SODIUM IV 40 MG VIAL IV PUSH (11:17)
[2022-02-27] MEDS: hydroCHLOROthiazide 12.5 MG CAPSULE PO (11:17)
[2022-02-27] MEDS: lisinopriL 20 MG TABLET PO (11:17)
[2022-02-27] MEDS: TOPIRAMATE 25 MG TABLET PO (11:18)
[2022-02-27] MEDS: PHENYTOIN SODIUM 100 MG EXTENDED RELEASE CAP 200 MG PO ×2 (11:18→20:14)
[2022-02-27] MEDS: REMDESIVIR 100 MG/NS 250 ML 100 MG/250 ML BAG 250 MG IVPB (11:23)
--- NOTE | 2022-02-27 12:01 | PM.IMPN ---
Progress Note: A&P Assessment and Plan (1) Acute on chronic respiratory failure with hypoxia and hypercapnia: Code(s): J96.21 - Acute and chronic respiratory failure with hypoxia; J96.22 - Acute and chronic respiratory failure with hypercapnia Status: Acute Assessment and Plan: Multifactorial Acute over chronic Respiratory failure secondary to severe baseline COPD, component of heart failure, COVID-19 pneumonia, and possible bacterial infection Continue airvo and monitor respiratory status. -Continue Dexamethasone, bronchodilators, on 2nd round of remdesivir for additional 5 days (02/23) -on antibiotics for possible bacterial superinfection (2) Pneumonia due to COVID-19 virus: Code(s): U07.1 - COVID-19; J12.82 - Pneumonia due to coronavirus disease 2019 Status: Acute Assessment and Plan: See above (3) COPD exacerbation: Code(s): J44.1 - Chronic obstructive pulmonary disease with (acute) exacerbation Status: Acute Assessment and Plan: Continue supportive care. (4) Community acquired pneumonia: Code(s): J18.9 - Pneumonia, unspecified organism Status: Acute Assessment and Plan: See above (5) Congestive heart failure: Code(s): I50.9 - Heart failure, unspecified Status: Acute Assessment and Plan: Monitor volume status. (6) Seizure disorder: Code(s): G40.909 - Epilepsy, unspecified, not intractable, without status epilepticus Status: Acute Assessment and Plan: Continue phenytoin 200 mg q.12 hours (7) Hypertension: Code(s): I10 - Essential (primary) hypertension Status: Acute Assessment and Plan: Blood pressure in controlled range at this time. Monitor Continue home blood pressure medicationswith statin,Aspirin, Plavix Subjective Date/time seen: 02/27/22 12:01 Breathing better according to him. No new complaints Objective Data Vital Signs Vital Signs: Vital Signs - 24 hr 02/26/22 14:00 02/26/22 14:14 02/26/22 14:22 Temperature Pulse Rate 71 70 74 Respiratory Rate 19 19 Blood Pressure Pulse Oximetry 02/26/22 16:00 02/26/22 18:00 02/26/22 20:00 Temperature 97.6 F 97.0 F L Pulse Rate 70 73 60 Respiratory Rate 24 H 22 H Blood Pressure 131/60 153/65 H Pulse Oximetry 96 97 02/26/22 20:31 02/26/22 20:40 02/26/22 21:15 Temperature Pulse Rate 79 69 79 Respiratory Rate 20 20 Blood Pressure Pulse Oximetry 96 02/26/22 21:30 02/26/22 21:58 02/27/22 00:00 Temperature 97 F L Pulse Rate 62 72 67 Respiratory Rate 23 H 25 H Blood Pressure 162/65 H Pulse Oximetry 98 93 02/27/22 02:00 02/27/22 02:02 02/27/22 02:10 Temperature Pulse Rate 76 78 73 Respiratory Rate 20 25 H Blood Pressure Pulse Oximetry 95 02/27/22 03:29 02/27/22 04:00 02/27/22 05:05 Temperature 97.2 F L Pulse Rate 79 66 Respiratory Rate 23 H 24 H Blood Pressure 122/49 L Pulse Oximetry 98 98 97 02/27/22 05:49 02/27/22 08:00 02/27/22 08:20 Temperature 97.6 F Pulse Rate 75 66 101 H Respiratory Rate 20 20 Blood Pressure 134/46 L Pulse Oximetry 97 96 02/27/22 08:27 02/27/22 10:00 02/27/22 11:58 Temperature Pulse Rate 110 H 62 Respiratory Rate 20 Blood Pressure Pulse Oximetry 99 Intake/Output Intake/Output: Intake & Output 02/24/22 02/25/22 02/26/22 02/27/22 23:59 23:59 23:59 23:59 Intake Total 2240 1667 1550 375 Output Total 1775 1625 1500 825 Balance 465 42 50 -450 Meds/Results Medications: Active Medications Generic Name Dose Route Start Last Admin Trade Name Kristina PRN Reason Stop Dose Admin Acetaminophen 1,000 mg 02/25/22 02:19 02/25/22 02:33 Acetaminophen 500 Mg Tablet PO 1,000 mg Q6H PRN Administration Mild Pain (1-3) or Fever Albuterol 2.5 mg 02/19/22 02:00 02/27/22 08:25 Albuterol Sulfate Neb 2.5 Mg/3 Ml Inh INHALATION Not Given Q6HRT [facility] Aspirin 81 mg 02/24
--- NOTE | 2022-02-27 12:10 | WPDCDIQUERY2 ---
CDI Query Clarification Request 02/26 Hospitalist documented: Acute on chronic respiratory failure with hypoxia and hypercapnia: Code(s): J96.21 - Acute and chronic respiratory failure with hypoxia; J96.22 - Acute and chronic respiratory failure with hypercapnia Status: Acute Assessment and Plan: Multifactorial Acute over chronic Respiratory failure secondary to severe baseline COPD, component of heart failure, COVID-19 pneumonia, and possible bacterial infection Continue airvo and monitor respiratory status. 02/27 Hospitalist documented: Congestive heart failure: Code(s): I50.9 - Heart failure, unspecified Status: Acute Assessment and Plan: Monitor volume status. EXAMINATION: XR chest 1V portable DATE: 02/26/2022 06:41 INDICATION: COVID 19 pneumonia. COPD. TECHNIQUE: frontal view of the chest was obtained. COMPARISON: Chest radiograph dated 02/25/2022 FINDINGS: No significant change in diffuse bilateral coarse interstitial and airspace opacities. No pleural effusion or pneumothorax. The cardiomediastinal silhouette is normal. IMPRESSION: 1. No significant change in diffuse bilateral lung disease consistent with pneumonia superimposed over chronic interstitial lung disease. Please clarify if diagnosis of CHF (Congestive Heart Failure), is acute, chronic, acute on chronic, or unable to determine. Please clarify if diagnosis of CHF (Congestive Heart Failure, is systolic, diastolic, combined, or unable to determine.
--- NOTE | 2022-02-27 13:52 | PCNFU ---
Nutrition Follow-Up Complete: Inadequate Oral Intake as related to COVID pneumonia as evidenced by poor po intake. Goal:Adequate Intake of at least 75% of meals/supplements Pt is slowly progressing towards goal. Continue with current goal at this time. Pt current nutrition is heart healthy diet and dietary supplements Last recorded weight is 105.4 kg, stable. Bowel Motility: LBM reported 02/24 Labs Reviewed: Hgb 10.4, Hct 34.9, PO4 5.6, Cl 91, CO2 36, Ca 7.9, BUN 31, BNP 105 Meds Noted: Aspirin, Zithromax, Cefepime Hcl, Plavix, Decadron, Lovenox, Prozac, Hydrochlorothiazide, Prinivil, Protonix, Phenytoin Sodium, Topamax Skin: Bilateral upper nose abrasion Additional Notes: Pt transferred from ICU to IMU. Current nutrition is a heart healthy diet and dietary supplements of Ensure Enlive TID and Frozen Nutritional Treat. Ensure Enlive is providing an additional 350kcal and 20g of protein per shake. Frozen Nutritional Treat is providing an additional 300kcal and 9g of protein per treat. Appetite appears to be improving. Reported intake is 10%, 35%, and 50% x3. Continue encouraging intake of diet and dietary supplements. Agree with diet orders at this time. Will continue to follow. RD will monitor every 3 days.
--- NOTE | 2022-02-27 13:53 | PM.PNPUL ---
Progress Note: A&P Assessment and Plan (1) Pneumonia due to COVID-19 virus: Code(s): U07.1 - COVID-19; J12.82 - Pneumonia due to coronavirus disease 2019 Status: Acute Assessment and Plan: Patient was unwilling to get vaccinated and tested COVID positive on 02/18/2022. Patient is currently receiving REM de severe started on 02/18/2022 and dexamethasone started on 02/19/2022. Today will be his 10th and last day of REM de severe and he will receive 10 days of dexamethasone which will and tomorrow. He is currently on day 8 of azithromycin and I will discontinue this today. Tomorrow will be his 10th day of cefepime and I will discontinue that tomorrow. (2) Acute on chronic respiratory failure with hypoxia and hypercapnia: Code(s): J96.21 - Acute and chronic respiratory failure with hypoxia; J96.22 - Acute and chronic respiratory failure with hypercapnia Status: Acute Assessment and Plan: Patient has GOLD grade 4 group D COPD with chronic hypoxemic and hypercarbic respiratory failure requiring 3 L at rest and 6 with ambulation and BiPAP at night with a rate of 12, IPAP 16, EPAP 6 with 4 L bleed in. he has worsening hypoxemia currently due to his COVID pneumonia. He was on continuous BiPAP from 02/19/2020 through 02/23/202202/26 22:00 Airvo 45L 45% with sats 97% 02/27 08:15 Airvo 35L 45% with sats 96% 02/27 11:45 8 L NC with sats 99% (3) COPD (chronic obstructive pulmonary disease): Qualifiers: COPD type: unspecified COPD Qualified Code(s): J44.9 - Chronic obstructive pulmonary disease, unspecified Code(s): J44.9 - Chronic obstructive pulmonary disease, unspecified Status: Acute Assessment and Plan: COPD on duonebs and nebulized budesonide with chronic hypercarbic and hypoxemic respiratory failure on 3 L rest and 6 L with ambulation, BiPAP rate 12, 16/6 with 4 L bleed in (he did not tolerate home AVAPS-AE or astral but does tolerate BiPAP), varicose and cystic bronchiectasis on vest and azithromycin TIW, severe panlobular emphysema on his CT scan from 06/26/2021, severe pulmonary hypertension with an estimated pulmonary arterial systolic pressure of 70 and normal right ventricular size and function and normal right atrial size and function on echo 11/06/2019. his M MRC is grade 4, he can walk 1/2 to 1 block and stops for back pain and shortness of breath and his CAT score is 28. He quit smoking 4 years ago. 02/27 currently there is no wheezing and no evidence of a COPD exacerbation. At this time I will continue ipratropium nebulizer 0.5 mg q.6 hours, albuterol nebulizers 2.5 mg q.6 hours, and will start budesonide 0.5 mg b.i.d. in anticipation of discontinuing his IV steroids on 02/28. I told the patient to have his family bring in his home machine as he stated is that his home machine is more comfortable in the hospital machine. I have adjusted his hospital a VATS mode to comfort and currently is on a rate of 12, tidal volume 500, EPAP 6, minimal inspiratory pressure 7, maximal inspiratory pressure 30, inspiratory time 1.0 seconds, rise of 4. Will follow with you Subjective Date/time seen: 02/27/22 13:53 Interval history: 71 YO male followed by me in pulmonary clinic and last seen on 11/24/2021. He has GOLD grade 4 group D COPD on duonebs and nebulized budesonide with chronic hypercarbic and hypoxemic respiratory failure on 3 L rest and 6 L with ambulation, BiPAP rate 12, 16/6 with 4 L bleed in (he did not tolerate home AVAPS-AE or astral mode but does tolerate BiPAP), varicose and cystic bronchiectasis on vest and azithromycin TIW, severe panlobular emphysema on his CT scan from 06/26/2021, severe pulmonary hypertension with an estimated pulmonary arterial systolic pressure of 70 and normal right ventricular size and function and normal right atrial size and function on echo 11/06/2019. I started noninvasive ventilation in July as he was
[2022-02-27] MEDS: LIDOCAINE HCL 1% PF INJ 5 ML VIAL INFILTRATE (15:00)
[2022-02-27] MEDS: ATORVASTATIN 40 MG TABLET PO (20:14)
[2022-02-27] MEDS: CENTRAL LINE FLUSH 10 ML IV PUSH (20:14)
[2022-02-27] MEDS: BUDESONIDE RESPULE NEB 0.5 MG/2 ML AMP INHALATION (21:13)
[2022-02-28] VITALS (22 sets, daily range): BP systolic 121–132; BP diastolic 47–71; PULSE 57–84; RESP 16–24; TEMP 36.6–37.1; O2SAT 94–100
[2022-02-28] MEDS: IPRATROPIUM BR 0.02% INH SOLN 0.5 MG/2.5 ML VIAL INHALATION ×4 (01:58→20:26)
[2022-02-28] MEDS: ALBUTEROL SULFATE NEB 2.5 MG/3 ML INH INHALATION ×4 (01:58→20:26)
[2022-02-28] MEDS: CENTRAL LINE FLUSH 10 ML IV PUSH ×3 (06:22→21:18)
--- NOTE | 2022-02-28 08:29 | PM.PNPUL ---
Progress Note: A&P Assessment and Plan (1) Pneumonia due to COVID-19 virus: Code(s): U07.1 - COVID-19; J12.82 - Pneumonia due to coronavirus disease 2019 Status: Acute Assessment and Plan: 02/27 Patient was unwilling to get vaccinated and tested COVID positive on 02/18/2022. Patient is currently receiving REM de severe started on 02/18/2022 and dexamethasone started on 02/19/2022. Today will be his 10th and last day of REM de severe and he will receive 10 days of dexamethasone which will and tomorrow. He is currently on day 8 of azithromycin and I will discontinue this today. Tomorrow will be his 10th day of cefepime and I will discontinue that tomorrow. 02/28 I have discontinued his cefepime today. Today will be his 10th and last dose of dexamethasone 6 mg IV. (2) Acute on chronic respiratory failure with hypoxia and hypercapnia: Code(s): J96.21 - Acute and chronic respiratory failure with hypoxia; J96.22 - Acute and chronic respiratory failure with hypercapnia Status: Acute Assessment and Plan: Patient has GOLD grade 4 group D COPD with chronic hypoxemic and hypercarbic respiratory failure requiring 3 L at rest and 6 with ambulation and BiPAP at night with a rate of 12, IPAP 16, EPAP 6 with 4 L bleed in. he has worsening hypoxemia currently due to his COVID pneumonia. He was on continuous BiPAP from 02/19/2020 through 02/23/202202/26 22:00 Airvo 45L 45% with sats 97% 02/27 08:15 Airvo 35L 45% with sats 96% 02/27 11:45 8 L NC with sats 99% 02/27 20:00 8 L NC with sats 93% 02/28 08:00 on hospital AVAPS mode 45% with sats 94%, Tonight I will attempt to place the patient on his home BiPAP rate of 12, pressure 16/6 with 6 L bleed in and perform an overnight oximetry. (3) COPD (chronic obstructive pulmonary disease): Qualifiers: COPD type: unspecified COPD Qualified Code(s): J44.9 - Chronic obstructive pulmonary disease, unspecified Code(s): J44.9 - Chronic obstructive pulmonary disease, unspecified Status: Acute Assessment and Plan: COPD on duonebs and nebulized budesonide with chronic hypercarbic and hypoxemic respiratory failure on 3 L rest and 6 L with ambulation, BiPAP rate 12, 16/6 with 4 L bleed in (started 08/2021 and he did not tolerate home AVAPS-AE or astral but does tolerate BiPAP), varicose and cystic bronchiectasis on vest and azithromycin 500 TIW, severe panlobular emphysema on his CT scan from 06/26/2021, severe pulmonary hypertension with an estimated pulmonary arterial systolic pressure of 70 and normal right ventricular size and function and normal right atrial size and function on echo 11/06/2019. His Echo on this admission NL LVEF 65-70%, normal RA and RV size and function, trace TR and no PASP listed. His M MRC is grade 4, on a good day he can walk 1/2 to 1 block and stops for back pain and shortness of breath and his CAT score is 28 on last clinic visit on 11/24/2021. He quit smoking 4 years ago. 02/27 currently there is no wheezing and no evidence of a COPD exacerbation. At this time I will continue ipratropium nebulizer 0.5 mg q.6 hours, albuterol nebulizers 2.5 mg q.6 hours, and will start budesonide 0.5 mg b.i.d. in anticipation of discontinuing his IV steroids on 02/28. I told the patient to have his family bring in his home machine as he stated is that his home machine is more comfortable in the hospital machine. I have adjusted his hospital a VATS mode to comfort and currently is on a rate of 12, tidal volume 500, EPAP 6, minimal inspiratory pressure 7, maximal inspiratory pressure 30, inspiratory time 1.0 seconds, rise of 4. 5 No wheezing today. I will continue his ipratropium, albuterol nebulizers q.6 and continue his budesonide 0.5 mg b.i.d.. We will continue aggressive physical therapy in hopes to discharge patient home in the next few days. Tonight I will attempt to place the patient on his home BiPAP rate of 12, pressure 16/6 w
[2022-02-28] MEDS: BUDESONIDE RESPULE NEB 0.5 MG/2 ML AMP INHALATION ×2 (08:36→20:26)
[2022-02-28] MEDS: ENOXAPARIN 40 MG/0.4 ML SYRINGE SUB-Q (09:29)
[2022-02-28] MEDS: CLOPIDOGREL BISULFATE 75 MG TABLET PO (09:30)
[2022-02-28] MEDS: FLUoxetine HCL 20 MG CAPSULE PO ×2 (09:30→21:18)
[2022-02-28] MEDS: ASPIRIN 81 MG ENTERIC TABLET PO (09:30)
[2022-02-28] MEDS: lisinopriL 20 MG TABLET PO (09:30)
[2022-02-28] MEDS: PANTOPRAZOLE SODIUM IV 40 MG VIAL IV PUSH (09:30)
[2022-02-28] MEDS: hydroCHLOROthiazide 12.5 MG CAPSULE PO (09:30)
[2022-02-28] MEDS: PHENYTOIN SODIUM 100 MG EXTENDED RELEASE CAP 200 MG PO ×2 (09:30→21:18)
[2022-02-28] MEDS: TOPIRAMATE 25 MG TABLET PO (09:31)
--- NOTE | 2022-02-28 12:27 | PM.IMPN ---
Progress Note: A&P Assessment and Plan (1) Acute on chronic respiratory failure with hypoxia and hypercapnia: Code(s): J96.21 - Acute and chronic respiratory failure with hypoxia; J96.22 - Acute and chronic respiratory failure with hypercapnia Status: Acute Assessment and Plan: Multifactorial Acute over chronic Respiratory failure secondary to severe baseline COPD, component of heart failure, COVID-19 pneumonia, and possible bacterial infection Continue airvo and monitor respiratory status. -Continue bronchodilators off antibiotics, off dexamethasone, off remdesivir - likely discharge within 2 days, will need home oxygen evaluation (2) Pneumonia due to COVID-19 virus: Code(s): U07.1 - COVID-19; J12.82 - Pneumonia due to coronavirus disease 2018 Status: Acute Assessment and Plan: See above (3) COPD exacerbation: Code(s): J44.1 - Chronic obstructive pulmonary disease with (acute) exacerbation Status: Acute Assessment and Plan: Continue supportive care. (4) Community acquired pneumonia: Code(s): J18.9 - Pneumonia, unspecified organism Status: Acute Assessment and Plan: See above (5) Congestive heart failure: Code(s): I50.9 - Heart failure, unspecified Status: Acute Assessment and Plan: Monitor volume status. (6) Seizure disorder: Code(s): G40.909 - Epilepsy, unspecified, not intractable, without status epilepticus Status: Acute Assessment and Plan: Continue phenytoin 200 mg q.12 hours (7) Hypertension: Code(s): I10 - Essential (primary) hypertension Status: Acute Assessment and Plan: Blood pressure in controlled range at this time. Monitor Continue home blood pressure medicationswith statin,Aspirin, Plavix Additional Plan DVT prophylaxis -Lovenox Stress ulcer prophylaxis -PPI Nutrition -Heart healthy diet Discussed with hospitalist, lalito Gibbs to transfer to intermediate Unit 02/25: Discussed with patient updated with his condition and plan of care, answered all questions. I did tell him that the COVID-19 may have tipped him into COPD exacerbation as he has severe obstructive lung disease on the PFTs that were done of in January 2022. I did updated that his kidney functions are better, his oxygen requirements are trending down. He is more comfortable on the Airvo. He is sitting up in the chair Code Status -02/18 Dr King discussed with patient in detail about current findings and current treatment plan. He requested to be DNR, he does not want CPR or resuscitation in the event of cardiac arrest but he is agreeable to intubation for respiratory failure. He states that he is unsure about intubation also but will give it a thought as of now if his respiratory status deteriorates he is agreeable for intubation and mechanical ventilation 02/19 -patient mentioned to the nurse that he is not sure whether he would like to go on a ventilator. Dr King again spoke to patient on 02/20 and mentioned possibility of be requiring intubation and mechanical ventilation. He asked Dr King answered questions regarding what ventilator is and how it works which Dr King answered, he told me that he does not think that he would want to go on a ventilator. Dr King also explained him that if his respiratory status does not improve or continue to worsen and we cannot maintain his oxygenation and ventilation with BiPAP then that would be only option left. He states that he still would not want intubation and mechanical ventilation even if that means that he would . I called and spoke to patient's Jeanette and updated her with patient's current status and current treatment plan. I also updated her with patient's wishes when it comes to code status. I answered all her questions. 02/20 - yesterday patient told me that he does not want intubation and invasive mechanical ventilation. He had video call h
[2022-02-28] MEDS: ATORVASTATIN 40 MG TABLET PO (21:18)
[2022-03-01] VITALS (19 sets, daily range): BP systolic 112–129; BP diastolic 52–62; PULSE 62–99; RESP 18–20; TEMP 36.2–36.8; O2SAT 82–96
[2022-03-01 05:12] LABS: Alveolar/Arterial O2 Gradient 143.5 mmHg; Base Excess ABG 13.8 mEq/l (+/-2.0); Fractional Inspired Oxygen 44 %; HCO3 ABG 43.5 mEq/l (22.0-26.0); Oxygen Content ABG 16.8 %vol (16.0-22.0); Oxygen Saturation ABG 92.6 % (95.0-100.0); Oxyhemoglobin 93.3 % THb (90.0-100.0); PO2 ABG 72.9 mmHg (80.0-100.0); PO2 FiO2 Ratio Arterial Blood 1.66 %; Total Hemoglobin 12.8 g/dL (12.0-18.0); pH ABG 7.325 (7.350-7.450)
[2022-03-01 05:14] LABS: Modified Allen's Test Pass; PCO2 ABG 85.4 mmHg (35.0-45.0); Site Drawn RIGHT RADIAL
[2022-03-01 05:15] LABS: Device OTHER DEVICE
[2022-03-01 06:09] LABS: Hematocrit 33.7 % (42.0-52.0); Hemoglobin 10.1 g/dL (14.0-18.0); Mean Corpuscular Hemoglobin 31.2 pg (26-34); Mean Platelet Volume 10.1 fl (7.4-10.4); Platelet Count Result 215 k/mm3 (150-375); Red Blood Count 3.24 M/mm3 (4.6-6.20); Red Cell Distribution Width 15.8 % (11.5-14.5); White Blood Count 6.7 K/mm3 (4.5-10.0)
[2022-03-01 06:16] LABS: Blood Urea Nitrogen 26 mg/dL (9-20); Calcium 8.1 mg/dL (8.4-10.2); Carbon Dioxide > 40 mmol/L (22-30); Chloride 90 mmol/L (98-107); Estimated CRCL calculation 89 ml/min; Estimated Glomerular Filt Rate > 60; Glucose 99 mg/dL (65-110); Sodium 133 mmol/L (137-145)
[2022-03-01] MEDS: PANTOPRAZOLE SODIUM IV 40 MG VIAL IV PUSH (08:10)
[2022-03-01] MEDS: PHENYTOIN SODIUM 100 MG EXTENDED RELEASE CAP 200 MG PO (08:10)
[2022-03-01] MEDS: CLOPIDOGREL BISULFATE 75 MG TABLET PO (08:11)
[2022-03-01] MEDS: TOPIRAMATE 25 MG TABLET PO (08:11)
[2022-03-01] MEDS: ASPIRIN 81 MG ENTERIC TABLET PO (08:11)
[2022-03-01] MEDS: hydroCHLOROthiazide 12.5 MG CAPSULE PO (08:11)
[2022-03-01] MEDS: ENOXAPARIN 40 MG/0.4 ML SYRINGE SUB-Q (08:11)
[2022-03-01] MEDS: lisinopriL 20 MG TABLET PO (08:11)
[2022-03-01] MEDS: FLUoxetine HCL 20 MG CAPSULE PO (08:11)
--- NOTE | 2022-03-01 08:37 | PM.PNPUL ---
Progress Note: A&P Assessment and Plan (1) Pneumonia due to COVID-19 virus: Code(s): U07.1 - COVID-19; J12.82 - Pneumonia due to coronavirus disease 2019 Status: Acute Assessment and Plan: 02/27 Patient was unwilling to get vaccinated and tested COVID positive on 02/18/2022. Patient is currently receiving REM de severe started on 02/18/2022 and dexamethasone started on 02/19/2022. Today will be his 10th and last day of REM de severe and he will receive 10 days of dexamethasone which will and tomorrow. He is currently on day 8 of azithromycin and I will discontinue this today. Tomorrow will be his 10th day of cefepime and I will discontinue that tomorrow. 02/28 I have discontinued his cefepime today. Today will be his 10th and last dose of dexamethasone 6 mg IV. 03/01 Completed 10 days of remdesivir on 02/27 and 10 days of dexamethasone on 02/28. Clinically improving. (2) Acute on chronic respiratory failure with hypoxia and hypercapnia: Code(s): J96.21 - Acute and chronic respiratory failure with hypoxia; J96.22 - Acute and chronic respiratory failure with hypercapnia Status: Acute Assessment and Plan: Patient has GOLD grade 4 group D COPD with chronic hypoxemic and hypercarbic respiratory failure requiring 3 L at rest and 6 with ambulation and BiPAP at night with a rate of 12, IPAP 16, EPAP 6 with 4 L bleed in. he has worsening hypoxemia currently due to his COVID pneumonia. He was on continuous BiPAP from 02/19/2020 through 02/23/202202/26 22:00 Airvo 45L 45% with sats 97% 02/27 08:15 Airvo 35L 45% with sats 96% 02/27 11:45 8 L NC with sats 99% 02/27 20:00 8 L NC with sats 93% 02/28 08:00 on hospital AVAPS mode 45% with sats 94%, Sanket[place] I will attempt to place the patient on his home BiPAP rate of 12, pressure 16/6 with 6 L bleed in and perform an overnight oximetry. 02/28 08:45 6 L NC sats 96% 02/28 20:15 6 L NC sats 94% 03/01 08:30 4 L NC sats 90% (3) COPD (chronic obstructive pulmonary disease): Qualifiers: COPD type: unspecified COPD Qualified Code(s): J44.9 - Chronic obstructive pulmonary disease, unspecified Code(s): J44.9 - Chronic obstructive pulmonary disease, unspecified Status: Acute Assessment and Plan: COPD on duonebs and nebulized budesonide with chronic hypercarbic and hypoxemic respiratory failure on 3 L rest and 6 L with ambulation, BiPAP rate 12, 16/6 with 4 L bleed in (started 08/2021 and he did not tolerate home AVAPS-AE or astral but does tolerate BiPAP), varicose and cystic bronchiectasis on vest and azithromycin 500 TIW, severe panlobular emphysema on his CT scan from 06/26/2021, severe pulmonary hypertension with an estimated pulmonary arterial systolic pressure of 70 and normal right ventricular size and function and normal right atrial size and function on echo 11/06/2019. His Echo on this admission NL LVEF 65-70%, normal RA and RV size and function, trace TR and no PASP listed. His M MRC is grade 4, on a good day he can walk 1/2 to 1 block and stops for back pain and shortness of breath and his CAT score is 28 on last clinic visit on 11/24/2021. He quit smoking 4 years ago. 02/27 currently there is no wheezing and no evidence of a COPD exacerbation. At this time I will continue ipratropium nebulizer 0.5 mg q.6 hours, albuterol nebulizers 2.5 mg q.6 hours, and will start budesonide 0.5 mg b.i.d. in anticipation of discontinuing his IV steroids on 02/28. I told the patient to have his family bring in his home machine as he stated is that his home machine is more comfortable in the hospital machine. I have adjusted his hospital a VATS mode to comfort and currently is on a rate of 12, tidal volume 500, EPAP 6, minimal inspiratory pressure 7, maximal inspiratory pressure 30, inspiratory time 1.0 seconds, rise of 4. 02/28 No wheezing today. I will continue his ipratropium, albuterol nebulizers q.6 and continue his budesonide 0.5 mg b.i.d..
[2022-03-01] MEDS: ALBUTEROL SULFATE NEB 2.5 MG/3 ML INH INHALATION (08:48)
[2022-03-01] MEDS: BUDESONIDE RESPULE NEB 0.5 MG/2 ML AMP INHALATION (08:48)
[2022-03-01] MEDS: IPRATROPIUM BR 0.02% INH SOLN 0.5 MG/2.5 ML VIAL INHALATION (08:48)
[2022-03-01] MEDS: CENTRAL LINE FLUSH 10 ML IV PUSH (13:29)
--- NOTE | 2022-03-01 14:45 | PM.DS ---
DS: Admitting Diagnosis Discharge Date 03/01/2022 Admitting Diagnosis shortness of breath DS: Discharge Diagnosis Discharge Diagnosis (1) Acute on chronic respiratory failure with hypoxia and hypercapnia: Code(s): J96.21 - Acute and chronic respiratory failure with hypoxia; J96.22 - Acute and chronic respiratory failure with hypercapnia Status: Acute Assessment and Plan: Multifactorial Acute over chronic Respiratory failure secondary to severe baseline COPD, component of heart failure, COVID-19 pneumonia, and possible bacterial infection Continue airvo and monitor respiratory status. -Continue bronchodilators off antibiotics, off dexamethasone, off remdesivir - likely discharge within 2 days, will need home oxygen evaluation (2) Pneumonia due to COVID-19 virus: Code(s): U07.1 - COVID-19; J12.82 - Pneumonia due to coronavirus disease 2018 Status: Acute Assessment and Plan: See above (3) COPD exacerbation: Code(s): J44.1 - Chronic obstructive pulmonary disease with (acute) exacerbation Status: Acute Assessment and Plan: Continue supportive care. (4) Community acquired pneumonia: Code(s): J18.9 - Pneumonia, unspecified organism Status: Acute Assessment and Plan: See above (5) Congestive heart failure: Code(s): I50.9 - Heart failure, unspecified Status: Acute Assessment and Plan: Monitor volume status. (6) Seizure disorder: Code(s): G40.909 - Epilepsy, unspecified, not intractable, without status epilepticus Status: Acute Assessment and Plan: Continue phenytoin 200 mg q.12 hours (7) Hypertension: Code(s): I10 - Essential (primary) hypertension Status: Acute Assessment and Plan: Blood pressure in controlled range at this time. Monitor Continue home blood pressure medicationswith statin,Aspirin, Plavix DS: Summary Hospital Course Reason for hospitalization: ? ? This is a pleasant 71-year-old male with chronic hypoxic and hypercarbic respiratory failure on home oxygen, COPD, sleep apnea, severe pulmonary hypertension, hypertension, peripheral vascular disease, and several other comorbidities who presented to the emergency department via EMS from home for evaluation of shortness of breath. He has not felt well for the past 3 days with chills, fever, body aches, poor appetite, cough productive of clear and occasionally oneill sputum, and increasing shortness of breath from baseline. His daughter was recently infected with COVID and the patient tested positive on a home kit 2 days ago. Family members wanted him to come to the ER yesterday however he refused though did acquiesce this morning as he was extremely short of breath. He was found to have acute on chronic hypoxic and hypercarbic respiratory failure and was started on BiPAP.? SARS-CoV-2 by PCR was positive and he has since been started on dexamethasone and remdesivir. At the time my evaluation he is resting comfortably on BiPAP and he has no specific complaints. He denies headache, sore throat, chest pain, pleuritic pain, palpitations, vomiting, and diarrhea. 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 Status at Discharge Cognitive/beh
[2022-03-01] MEDS: NEOMYCIN/POLYMYXIN/BACITRACIN OINTMENT PACKET 1 PACKET (15:28)
== END 2022-03-01 16:20 | disposition home or self-care (01) | DRG 177 ==
LOC: ANHED 10:02 → ANHICU 11:10 → ANHIMU 02-25 14:21 → ANH3MEDSUR 02-28 15:41
PROVIDERS: Chiropractor; Internal Medicine; Internal Medicine Pulmonary Disease; Physician Assistant; Admitting Provider Family Medicine; Emergency Provider Emergency Medicine; PCP Student in an Organized Health Care Education/Training Program; Visit Provider Family Medicine
DX: U07.1 COVID-19 (principal); J12.82 Pneumonia due to coronavirus disease 2019; J96.22 Acute and chronic respiratory failure with hypercapnia; J96.21 Acute and chronic respiratory failure with hypoxia; J15.9 Unspecified bacterial pneumonia; J47.0 Bronchiectasis with acute lower respiratory infection; Z66 Do not resuscitate; J43.2 Centrilobular emphysema; Z28.310 Unvaccinated for COVID-19; G89.29 Other chronic pain; M54.9 Dorsalgia, unspecified; E78.5 Hyperlipidemia, unspecified; Z99.81 Dependence on supplemental oxygen; I73.9 Peripheral vascular disease, unspecified; Z85.46 Personal history of malignant neoplasm of prostate; G47.33 Obstructive sleep apnea (adult) (pediatric); I27.20 Pulmonary hypertension, unspecified; G40.909 Epilepsy, unspecified, not intractable, without status epilepticus; Z87.891 Personal history of nicotine dependence; I11.0 Hypertensive heart disease with heart failure; I50.9 Heart failure, unspecified; D72.10 Eosinophilia, unspecified
CPT/HCPCS: 36415; 36569; 36600; 71045; 71250; 80048; 80053; 80185; 81001; 82375; 82565; 82728; 82805; 82948; 83050; 83605; 83615; 83735; 83880; 84100; 84145; 84460; 85025; 85027; 85055; 85380; 85610; 85730; 86140; 87040; 87070; 87077; 87186; 87205; 87449; 87502; 87899; 93005; 93970; 94002; 94003; 94640; 94762; 96365; 96375; 97110; 97162; 97165; 97530; 97535; 99285; A9270; C1751; C8929; C9113; C9803; J0131; J0248; J0360; J0456; J0692; J0696; J1100; J1650; J1815; J1940; Q9957; U0003; U0005

== ENCOUNTER 2022-04-11 09:53 | Inpatient (IN) | payer MEDICARE, SELFPAY ==
[2022-04-11] VITALS (17 sets, daily range): BP systolic 127–152; BP diastolic 50–63; PULSE 66–99; RESP 20–30; TEMP 36.3–37.1; O2SAT 91–99; BMI 34.0
--- NOTE | 2022-04-11 | ECHO_ITS ---
Patient Info Name: Quentin Zavaleta Age: 71 years : 1950 Gender: Male Ht: 68 in Wt: 493 lbs BSA: 3.43 m2 HR: 88 bpm BP: 140 / 55 mmHg Heart Rhythm: Sinus Rhythm Technical Quality: Fair Exam Date: 04/11/2022 3:52 PM Exam Location: [facility] Pulmonary Patient Status: Inpatient Admit Date: 04/11/2022 Staff Ordering Physician: Mirian Medina NP Perl Programmer: Gala Ramirez RDCS Attending Provider: Krista Coon DO Referring Physician: Adam BRADY; Exam Type: CA echo doppler color flow Study Info Indications - sob and edema Complete two-dimensional, color flow and Doppler transthoracic echocardiogram is performed. Summary 1. Complete two-dimensional, color flow and Doppler transthoracic echocardiogram is performed. 2. Technically difficult echocardiogram because of obesity. 3. Grossly normal-appearing left and right ventricular systolic function. 4. No significant valvular dysfunction by Doppler. 5. Compared to examination done in this laboratory 2 months ago there is no obvious change. Left Ventricle Left ventricular chamber dimension is normal. Left ventricular systolic function is normal, estimated at 65-70%. There is mild concentric increased left ventricular wall thickness. The left ventricular diastolic function is normal. Right Ventricle Right ventricular chamber dimension is normal. Left Atria Left atrial chamber dimension is normal. Right Atria Right atrial chamber dimension is normal. Aortic Valve The aortic valve is normal. Pulmonic Valve The pulmonic valve is not well visualized. Mitral Valve The mitral valve has normal leaflets. Tricuspid Valve The tricuspid valve leaflets are not well visualized. Pericardium/Pleural The pericardium appears normal. Aorta The aortic root size at the sinus of Valsalva is normal. Left Ventricular Outflow Tract Name Value Normal LVOT 2D LVOT Diameter 2.0 cm Mitral Valve Name Value Normal MV Doppler MV Decel [place] 345 cm/s2 MV PHT 56 ms MV Area (PHT) 4.0 cm2 4.0-5.0 MV Diastolic Function MV E Peak Velocity 66 cm/s MV A Peak Velocity 77 cm/s MV E/A 0.9 MV Decel Time 192 ms MV Annular TDI MV Septal e' Velocity 7.7 cm/s >=8.0 MV E/e' (Septal) 8.6 <=8.0 MV Lateral e' Velocity 9.7 cm/s >=10.0 MV E/e' (Lateral) 6.8 <=8.0 MV e' Average 8.70 MV E/e' (Average) 7.7 Tricuspid Valve
--- NOTE | ~2022-04-11 | US_ITS ---
EXAMINATION: US venous doppler [facility] DATE: 04/11/2022 15:48 INDICATION: Shortness of breath TECHNIQUE: Cai scale images without and with compression and Doppler images of the bilateral lower e xtremity veins were obtained. COMPARISON: 02/18/2022 FINDINGS: The right common femoral vein, profunda femoral vein, femoral vein, popliteal vein, peroneal trunk, p osterior tibial veins, and greater saphenous vein are patent. The left common femoral vein, profunda femoral vein, femoral vein, popliteal vein, peroneal trunk, po sterior tibial veins, and greater saphenous vein are patent. IMPRESSION: 1. Patent bilateral lower extremity veins. No evidence of deep venous thrombosis. Reviewed, dictated and finalized at location A. IMPRESSION: 1. Patent bilateral lower extremity veins. No evidence of deep venous thrombosi s.
--- NOTE | ~2022-04-11 | XR_ITS ---
EXAMINATION: XR chest 1V portable DATE: 04/15/2022 05:52 INDICATION: COVID with respiratory failure TECHNIQUE: frontal view of the chest was obtained. COMPARISON: Chest radiographs dated 04/13/2022 and 06/25/[address] studies dated 04/11/2022, 02/18/2022 a nd 06/26/2021 FINDINGS: No significant interval change in predominantly coarse reticular opacities throughout both lungs, rig ht greater than left with additional mild more patchy airspace opacities in the bilateral lower lung zones likely related to chronic interstitial lung disease superimposed over emphysema with chronic va ricose bronchiectasis. Could not exclude superimposed mild pulmonary edema or pneumonia. No pleural e ffusion or pneumothorax. The cardiomediastinal silhouette is normal. IMPRESSION: 1. Relatively stable appearance of diffuse bilateral lung disease most likely chronic interstitial omar ng disease superimposed over emphysema and bronchiectasis. Cannot exclude superimposed mild pulmonary edema or pneumonia. Reviewed, dictated and finalized at location A. IMPRESSION: 1. Relatively stable appearance of diffuse bilateral lung disease most likely c hronic interstitial lung disease superimposed over emphysema and bronchiectasis . Cannot exclude superimposed mild pulmonary edema or pneumonia.
--- NOTE | ~2022-04-11 | XR_ITS ---
EXAMINATION: XR chest 1V portable INDICATION: Shortness of breath TECHNIQUE: Portable AP chest at 1111 hours COMPARISON: 02/27/2022 FINDINGS: There are widespread airspace opacities of the lungs superimposed on chronic lung disease. No pleural effusion or pneumothorax. The cardiomediastinal silhouette is stable. IMPRESSION: 1. Widespread opacities superimposed on a background of chronic lung disease, consistent with pneumon ia/or pulmonary edema. Reviewed, dictated and finalized at location B. IMPRESSION: 1. Widespread opacities superimposed on a background of chronic lung disease, c onsistent with pneumonia/or pulmonary edema.
--- NOTE | ~2022-04-11 | CT_ITS ---
EXAMINATION: CTA chest PE protocol DATE: 04/11/2022 16:24 INDICATION: Shortness of breath. Chest pain. COPD. History of prostate cancer. TECHNIQUE: Computed tomography angiography (CTA) of the chest was performed with 100 mL Omnipaque-350 intravenous contrast timed to evaluate the pulmonary arteries. Coronal maximum intensity projection 3D-reconstructions were created by the technologist. Automated exposure control and iterative reconst ruction technique were employed. Exam dose: 1006.07 mGy-cm total exam DLP. COMPARISON: 04/11/2022 portable AP chest FINDINGS: There is diagnostic contrast enhancement of the pulmonary arteries and no evidence of pulmo nary embolism. There is thoracic aortic, great vessel and extensive coronary calcification. No thoracic aortic aneur ysm or dissection. Heart size is normal. No pericardial effusion. Trace left pleural effusion. Cholelithiasis. Included portions of the adrenal glands appear normal. Hepatic and splenic calcified granulomas. Mild bilateral hilar and mediastinal lymph node prominence, likely reactive. Severe emphysema is noted. There is bronchiectasis and septal soft tissue thickening in the right upp er lobe and lingula and particularly severe bronchiectasis and septal soft tissue thickening througho ut the right lower lobe with some atelectasis or consolidation in the dependent and lower lateral asp ect of the right lower lobe. There is also some patchy infiltrate and lower deep tendon left lower lobe atelectasis and/or consoli dation. Consider bilateral lower pneumonia and/or aspiration pneumonitis. IMPRESSION: No evidence of pulmonary embolism Severe emphysema Bronchiectasis involving particularly the right upper lobe, lingula and most prominently the right lo wer lobe Bilateral lower lobe infiltrate and/or atelectasis, right greater than left, suggesting pneumonia and /or aspiration pneumonitis Cholelithiasis Reviewed, dictated and finalized at Location A. Reviewed, dictated and finalized at location A. IMPRESSION: No evidence of pulmonary embolism Severe emphysema Bronchiectasis involving particularly the right upper lobe, lingula and most pr ominently the right lower lobe Bilateral lower lobe infiltrate and/or atelectasis, right greater than left, bartholomew ggesting pneumonia and/or aspiration pneumonitis Cholelithiasis
--- NOTE | ~2022-04-11 | XR_ITS ---
EXAMINATION: XR chest 1V portable INDICATION: Respiratory failure, COVID 19 TECHNIQUE: Portable AP chest at 0803 hours COMPARISON: 04/11/2022 FINDINGS: Diffuse interstitial and airspace opacities persist with interval improvement. There are pe rsistent chronic opacities of the lung bases. No pleural effusion or pneumothorax. The cardiomediasti nal silhouette is stable. IMPRESSION: 1. Diffuse lung disease with interval improvement, consistent with pneumonia and/or pulmonary edema s uperimposed on a background of chronic lung disease. Reviewed, dictated and finalized at location B. IMPRESSION: 1. Diffuse lung disease with interval improvement, consistent with pneumonia an d/or pulmonary edema superimposed on a background of chronic lung disease.
--- NOTE | 2022-04-11 10:17 | ECG_ITS ---
Measurements Intervals Raymond Rate: 90 P: 122 ND: 154 QRS: 116 QRSD: 97 T: 129 QT: 321 QTc: 393 Interpretive Statements SINUS RHYTHM VENTRICULAR PREMATURE COMPLEX ARM LEADS REVERSED BORDERLINE ECG Electronically Signed On 04-11-2022 10:58:59 CDT by Julien Ku D.O.
--- NOTE | 2022-04-11 10:18 | ED.SOB ---
HPI - SOB/Dyspnea General Chief Complaint: Shortness of Breath/Dyspnea Stated Complaint: SOB Time Seen by Provider: 04/11/22 10:11 History of Present Illness HPI Narrative: 71-year-old male with history of COPD, CAD presenting with several days of chest tightness and difficulty breathing, he does state that albuterol makes him feel better when he used it. No fevers or chills, cough, nausea or vomiting, abdominal pain, focal numbness or weakness. No swelling in his legs or pain. Has had similar symptoms with his COPD. Related Data Home Medications Medication Instructions Recorded Confirmed aspirin 81 mg tablet,delayed 81 mg PO DAILY 11/05/19 02/18/22 release atorvastatin 40 mg tablet 40 mg PO HS 06/22/21 02/18/22 clopidogrel 75 mg tablet 75 mg PO DAILY 06/22/21 02/18/22 fluoxetine 10 mg capsule 20 mg PO BID 06/22/21 02/18/22 hydrochlorothiazide 12.5 mg tablet 12.5 mg PO DAILY 06/22/21 02/18/22 lisinopril 20 mg tablet 20 mg PO DAILY 06/22/21 02/18/22 phenytoin sodium extended 100 mg 200 mg PO Q8H 06/22/21 02/18/22 capsule bicalutamide 50 mg tablet 50 mg PO DAILY 07/18/21 02/18/22 furosemide 20 mg tablet 20 mg PO DAILY 07/18/21 02/18/22 omeprazole 40 mg capsule,delayed 40 mg PO DAILY 07/18/21 02/18/22 release topiramate 25 mg tablet 25 mg PO DAILY 02/18/22 02/18/22 Allergies Allergy/AdvReac Type Severity Reaction Status Date / Time No Known Allergies Allergy Verified 04/04/22 15:24 Review of Systems Review of Systems: CONST: No fever. HEENT: No sore throat C/V: Chest comfort RESP: Difficulty breathing but no cough GI: No nausea or vomiting : No dysuria. M/S: No joint pain. SKIN: No rash. NEURO: [No headache or focal numbness or weakness] PSYCH: [No depression] [facility], [facility] Past Medical History Medical History Bronchiectasis Previously used a vibratory vest b.i.d. for 30 minutes. Chronic back pain Chronic obstructive pulmonary disease Chronic respiratory failure with hypoxia and hypercapnia 3 L with rest and 6 L with ambulation. BiPAP at nighttime, 16/6 with 4 L bleed in. Diastolic dysfunction Echocardiogram in November 06, 2019 showed mild increase in LV wall thickness, grossly normal LV wall motion, ejection fraction estimated > 70%, grade 1 diastolic dysfunction, and mild tricuspid valve regurgitation. Hyperlipidemia Hypertension Macrocytic anemia Obstructive sleep apnea Peripheral arterial disease Prostate cancer Status post radiation. On anti androgens. Secondary pulmonary hypertension Noted on echocardiogram 11/06/2019 with an estimated peak RVSP of 70 millimeters of mercury. Seizure disorder Surgical History Surgical History History of abdominal aortic aneurysm repair History of colonoscopy with polypectomy Diverticulosis, internal hemorrhoids, and benign colon and rectal polyps. History of esophagogastroduodenoscopy (02/2021) Esophageal ring and hiatal hernia. History of vascular surgery Stents to bilateral lower extremities. Family History Family History Sibling Diabetes mellitus Mother Heart disease Social History Social History Social History: Lives with his in [place]. They have 4 children. Smoker for 55 years. Two packs a day for 10 years, 1 pack thereafter. He quit for good approximately 4 years ago. No alcohol or illicit substance abuse. Surrogate decision maker: Jeanette Zavaleta, . Code status: No CPR, may consider intubation. Smoking status: Former smoker Spiritual care concerns: No Agree to blood products: Yes Exam Narrative: EXAMINATION OF ORGAN SYSTEMS/BODY AREAS: Constitutional: Vital signs per nursing GENERAL:[No acute distress, non-toxic appearing.] HEAD: Normal with no signs of head trauma. EYES: EOMI, conjunctiva normal ENT: Hearing g
[2022-04-11] MEDS: ALBUTEROL SULFATE NEB 2.5 MG/3 ML INH 15 MG INHALATION (10:34)
[2022-04-11] MEDS: IPRATROPIUM BR 0.02% INH SOLN 0.5 MG/2.5 ML VIAL 1 MG INHALATION (10:34)
[2022-04-11 10:38] LABS: Basophils Percent Auto 0.4 % (0.2-1.2); Eosinophils Absolute Auto 0.4 K/mm3 (0-0.3); Eosinophils Percent Auto 4.3 % (0-4.4); Hematocrit 34.1 % (42.0-52.0); Hemoglobin 9.7 g/dL (14.0-18.0); Immature Granulocyte Absolute 0.11 K/mm3 (0.00-0.031); Immature Granulocyte Percent A 1.2 % (0-0.5); Lymphocytes Absolute Auto 0.74 K/mm3 (0.9-3.2); Lymphocytes Percent Auto 7.8 % (18.3-44.2); Mean Corpuscular HGB Conc 28.4 g/dl (32-36); Mean Corpuscular Hemoglobin 30.4 pg (26-34); Mean Corpuscular Volume 106.9 fl (80-100); Mean Platelet Volume 9.4 fl (7.4-10.4); Monocytes Percent Auto 10.8 % (2.6-8.5); Neutrophils Absolute Auto 7.2 K/mm3 (1.3-6.7); Neutrophils Percent Auto 75.5 % (45.5-73.1); Platelet Count Result 161 k/mm3 (150-375); Red Blood Count 3.19 M/mm3 (4.6-6.20); Red Cell Distribution Width 16.4 % (11.5-14.5); White Blood Count 9.5 K/mm3 (4.5-10.0)
[2022-04-11 10:48] LABS: Blood Urea Nitrogen 24 mg/dL (9-20); Carbon Dioxide > 40 mmol/L (22-30); Chloride 92 mmol/L (98-107); Estimated CRCL calculation 112 ml/min; Estimated Glomerular Filt Rate > 60; Glucose 135 mg/dL (65-110); Magnesium 2.2 mg/dL (1.6-2.3); Sodium 137 mmol/L (137-145)
[2022-04-11] MEDS: predniSONE 20 MG TABLET 60 MG PO (10:49)
[2022-04-11 11:00] LABS: NT Pro B Type Natriuretic Pept 177 pg/mL (5-100); Troponin I < 0.012 ng/mL (0.000-0.034)
[2022-04-11 11:20] LABS: Platelet Estimate Adequate (Adequate)
[2022-04-11 11:21] LABS: Macrocytosis 1+ (NORMAL)
--- NOTE | 2022-04-11 12:14 | PC.NURSE ---
Pt noted to be 83% , oxygen placed back in nostril and at 6lpm nc per ERP order.
[2022-04-11 12:33] LABS: SARS-CoV-2 RNA PCR Positive
--- NOTE | 2022-04-11 12:45 | PM.IMHP ---
H&P: HPI History of Present Illness Date/Time: 04/11/22 12:45 Chief Complaint: Shortness of breath Narrative: This is a 71-year-old male patient who has a history of COPD and coronary artery disease. The patient came in to the emergency room complaining of chest tightness and difficulty breathing. The patient is chronically on oxygen at 2 L but was bumped up to 6 L per nasal cannula today. The patient denies any fever chills. No cough nausea vomiting abdominal pain or any weakness. He has 2+ pitting edema to lower extremities. The patient stated that he uses see above uterine it makes him feel better when he uses it. The patient was given a nebulizer and prednisone in the emergency room. The patient continues to be on 6 L per nasal cannula and is now wheezing. Chest x-ray was read as wide spread opacities superimposed on a background of chronic lung disease consistent with pneumonia or pulmonary edema. His H&H is 9.7 and 34.1 which is slightly lower than 2 months ago. (on a side note the patient was seen by his sheetmetal patternmaker on 04/04/2022 which shows the patient was using 4-5 L at rest with home oxygen levels being 92-93% and 6 L with ambulation.)(02/18/22-03/01/22 was treated here at [place] with 10 days of remdesivir and dexamethasone) Review of Systems Review of Systems: All systems reviewed & are unremarkable except as noted in HPI and below Constitutional: Constitutional: Reports as per HPI and Reports no additional constitutional complaints Eyes: Eyes: Reports as per HPI and Reports no additional eye complaints ENT: Reports system reviewed and no additional complaints, except as documented and Reports Normal hearing present Cardiovascular: Cardiovascular: Reports no additional cardiovascular complaints Respiratory: Respiratory: Reports no additional respiratory complaints and Reports no additional respiratory complaints Gastrointestinal: Gastrointestinal: Reports as per HPI and Reports no additional gastrointestinal complaints Musculoskeletal: Musculoskeletal: Reports no additional musculoskeletal complaints Integumentary/Breasts: Skin/Breast: Reports system reviewed and no additional complaints, except as docu and Reports as per HPI Neurologic: Reports system reviewed and no additional complaints, except as documented, Reports as per HPI and Reports Normal hearing present Psychiatric: Psychiatric: Reports no additional psychiatric complaints and Reports as per HPI Endocrine: Endocrine: Reports no additional endocrine complaints Hematologic/Lymphatic: Hematologic/Lymphatic: Reports no additional hematologic/lymphatic complaints Allergic/Immunologic: Allergic/Immunologic: Reports no additional allergic/immunologic complaints [facility] Past Medical History Medical History (Updated 04/11/22 @ 14:59 by Mirian Medina NP) Bronchiectasis Previously used a vibratory vest b.i.d. for 30 minutes. Chronic back pain Chronic obstructive pulmonary disease Chronic respiratory failure with hypoxia and hypercapnia 3 L with rest and 6 L with ambulation. BiPAP at nighttime, 16/6 with 4 L bleed in. Diastolic dysfunction Echocardiogram in November 06, 2019 showed mild increase in LV wall thickness, grossly normal LV wall motion, ejection fraction estimated > 70%, grade 1 diastolic dysfunction, and mild tricuspid valve regurgitation. History of CVA (cerebrovascular accident) Hyperlipidemia Hypertension Macrocytic anemia Obstructive sleep apnea Peripheral arterial disease Prostate cancer Status post radiation. On anti androgens. Secondary pulmonary hypertension Noted on echocardiogram 11/06/2019 with an estimated peak RVSP of 70 millimeters of mercury. Seizure disorder Surgical History Surgical History History of abdominal aortic aneurysm repair History of colonoscopy with polypectomy Diverticulosis, internal hemorrhoids, and benign colon and rectal polyps. Hist
--- NOTE | 2022-04-11 13:17 | PC.NURSE ---
Pt noted to be 82% on 6 lpm nc , ERP made aware, states pt will be placed on bipap. Pt is asymptomatic and has no complaints at this time.
--- NOTE | 2022-04-11 13:41 | PC.NURSE ---
Resp states unable to transport on the vision bipap.
[2022-04-11] MEDS: FUROSEMIDE INJ 40 MG/4 ML VIAL IV PUSH (15:31)
--- NOTE | 2022-04-11 19:31 | ADMGEN ---
This patient, Quentin Zavaleta, was admitted to IMU 214. Patient/family oriented to hospital policies and general routines including ID bracelet, bed and alarms, visiting hours, pain management, procedures, bathroom and other care routines, personal items, smoking policy, room service/diet, and visiting hours. Information on how to activate the Rapid Response Team has been discussed. Patient/Family are encouraged to report perceived risks to care and to ask questions if they do not understand what they are told or what they should do. Patient arrived via time announced on [employer] at 1902. Nurse in the patient's room by 191 where she found no ER personal, patient was not on traffic monitor specialist, and the room door was wide open without appropriate isolation signs in place. Call light was also not in place and the bed was up in the air with no bed alarm on. Nurse quickly remedied all these problems, orientated patient to lele, and addressed all immediate patient concerns.
[2022-04-11] MEDS: methylPREDNISolone SOD SUCC 125 MG VIAL 80 MG IV PUSH (21:28)
[2022-04-11] MEDS: ATORVASTATIN 40 MG TABLET PO (21:48)
[2022-04-11] MEDS: PHENYTOIN SODIUM 100 MG EXTENDED RELEASE CAP 200 MG PO (21:48)
[2022-04-11] MEDS: ALBUTEROL SULFATE NEB 2.5 MG/3 ML INH INHALATION (22:23)
[2022-04-11] MEDS: IPRATROPIUM BR 0.02% INH SOLN 0.5 MG/2.5 ML VIAL 0.75 MG INHALATION (22:23)
[2022-04-12] VITALS (26 sets, daily range): BP systolic 123–154; BP diastolic 46–61; PULSE 8–95; RESP 18–29; TEMP 35.5–37.1; O2SAT 91–100
[2022-04-12] MEDS: ALBUTEROL SULFATE NEB 2.5 MG/3 ML INH INHALATION ×4 (02:20→21:07)
[2022-04-12] MEDS: IPRATROPIUM BR 0.02% INH SOLN 0.5 MG/2.5 ML VIAL 0.75 MG INHALATION ×4 (02:20→21:07)
[2022-04-12] MEDS: methylPREDNISolone SOD SUCC 125 MG VIAL 80 MG IV PUSH ×2 (05:15→15:00)
[2022-04-12] MEDS: PHENYTOIN SODIUM 100 MG EXTENDED RELEASE CAP 200 MG PO ×3 (05:15→21:59)
[2022-04-12 06:21] LABS: Basophils Percent Auto 0.3 % (0.2-1.2); Eosinophils Percent Auto 0.2 % (0-4.4); Hematocrit 32.6 % (42.0-52.0); Hemoglobin 9.4 g/dL (14.0-18.0); Immature Granulocyte Absolute 0.07 K/mm3 (0.00-0.031); Immature Granulocyte Percent A 1.1 % (0-0.5); Lymphocytes Absolute Auto 0.39 K/mm3 (0.9-3.2); Lymphocytes Percent Auto 6.4 % (18.3-44.2); Mean Corpuscular HGB Conc 28.8 g/dl (32-36); Mean Corpuscular Hemoglobin 30.7 pg (26-34); Mean Corpuscular Volume 106.5 fl (80-100); Mean Platelet Volume 10.1 fl (7.4-10.4); Monocytes Absolute Auto 0.3 K/mm3 (0.1-0.6); Monocytes Percent Auto 4.4 % (2.6-8.5); Neutrophils Absolute Auto 5.4 K/mm3 (1.3-6.7); Neutrophils Percent Auto 87.6 % (45.5-73.1); Platelet Count Result 162 k/mm3 (150-375); Red Blood Count 3.06 M/mm3 (4.6-6.20); Red Cell Distribution Width 16.1 % (11.5-14.5); White Blood Count 6.1 K/mm3 (4.5-10.0)
[2022-04-12 07:01] LABS: Alanine Aminotransferase 15 U/L (6-50); Albumin Level 3.5 g/dL (3.5-5.1); Alkaline Phosphatase 118 U/L (38-126); Aspartate Amino Transferase 20 U/L (17-59); Bilirubin,Total < 0.1 mg/dL (0.2-1.3); Blood Urea Nitrogen 27 mg/dL (9-20); Calcium 8.3 mg/dL (8.4-10.2); Carbon Dioxide > 40 mmol/L (22-30); Chloride 90 mmol/L (98-107); Estimated CRCL calculation 70 ml/min; Estimated Glomerular Filt Rate > 60; Glucose 133 mg/dL (65-110); Sodium 136 mmol/L (137-145)
[2022-04-12 07:37] LABS: Hypochromasia 1+ (NORMAL); Macrocytosis 1+ (NORMAL); Platelet Estimate Adequate (Adequate)
[2022-04-12 10:12] LABS: Alveolar/Arterial O2 Gradient 127.4 mmHg; Base Excess ABG 15.5 mEq/l (+/-2.0); Fractional Inspired Oxygen 45 %; HCO3 ABG 43.8 mEq/l (22.0-26.0); Oxygen Content ABG 14.5 %vol (16.0-22.0); Oxygen Saturation ABG 97.3 % (95.0-100.0); Oxyhemoglobin 96.9 % THb (90.0-100.0); PO2 ABG 104.7 mmHg (80.0-100.0); PO2 FiO2 Ratio Arterial Blood 2.33 %; Total Hemoglobin 10.5 g/dL (12.0-18.0)
[2022-04-12 10:14] LABS: Site Drawn RIGHT RADIAL; pH ABG 7.367 (7.350-7.450)
[2022-04-12 10:15] LABS: Device NON-INVASIVE VENT; Modified Allen's Test Pass; Non-Invasive Expiratory Pressure 6 CMH2O; Non-Invasive Inspiratory Pressure 12 CMH2O; Non-Invasive Vent Rate 16 /MIN
[2022-04-12] MEDS: ENOXAPARIN 40 MG/0.4 ML SYRINGE SUB-Q (11:35)
[2022-04-12] MEDS: FUROSEMIDE 40 MG TABLET PO (11:36)
[2022-04-12] MEDS: ASPIRIN 81 MG ENTERIC TABLET PO (11:36)
[2022-04-12] MEDS: CLOPIDOGREL BISULFATE 75 MG TABLET PO (11:37)
[2022-04-12] MEDS: PANTOPRAZOLE 40 MG TABLET PO ×2 (11:37→21:59)
[2022-04-12] MEDS: AZITHROMYCIN 250 MG TABLET 500 MG PO (11:37)
[2022-04-12] MEDS: FAMOTIDINE 20 MG TABLET PO (11:37)
[2022-04-12] MEDS: lisinopriL 20 MG TABLET PO (11:38)
[2022-04-12] MEDS: TOPIRAMATE 25 MG TABLET PO (11:38)
[2022-04-12] MEDS: hydroCHLOROthiazide 12.5 MG CAPSULE PO (11:38)
[2022-04-12] MEDS: BICALUTAMIDE (*CHEMO) 50 MG TABLET PO (11:39)
[2022-04-12] MEDS: FLUoxetine HCL 20 MG CAPSULE PO ×2 (11:39→17:22)
--- NOTE | 2022-04-12 14:42 | PM.IMPN ---
Progress Note: A&P Assessment and Plan (1) Acute on chronic respiratory failure with hypoxia and hypercapnia: Code(s): J96.21 - Acute and chronic respiratory failure with hypoxia; J96.22 - Acute and chronic respiratory failure with hypercapnia Status: Acute Assessment and Plan: Patient started on BiPAP due to acute on chronic respiratory failure. No ABG in the chart. Chest x-ray shows widespread opacities superimposed on a background of chronic lung disease consistent with pneumonia or pulmonary edema. CTA of the chest showed no evidence of pulmonary embolism but did show severe emphysema and bronchiectasis. He also had bilateral lower infiltrates or atelectasis right greater than left. ABG noted with 7.37/78/105 on bipap. Consider pneumonia or aspiration pneumonitis but feel more likely related to COVID. Continue Solu-Medrol and nebulizer treatments. Other treatment as mentioned below. Speech therapy to evaluate and treat. Lasix IV. Trial off bipap. (2) COPD exacerbation: Code(s): J44.1 - Chronic obstructive pulmonary disease with (acute) exacerbation Status: Acute Assessment and Plan: Minimal wheezing but very distant breath sounds. Continue with nebulizer treatments and Solu-Medrol. Returns Supervisor consulted. Minimal cough without excessive sputum production but will add abx to cover for pseudomonas. (3) COVID-19: Code(s): U07.1 - COVID-19 Status: Acute Assessment and Plan: Patient tested positive May for COVID. He completed 10 days of remdesivir and dexamethasone at that time. Currently on Solu-Medrol. Discussed with organ grinder. Will resume Remdesivir. Defer to pulmonology about changing steroids. Continue nebulizer treatment (4) Hypertension: Code(s): I10 - Essential (primary) hypertension Status: Acute Assessment and Plan: Patient's blood pressure was reviewed on 04/12 Blood pressure remains well controlled. Will continue current medications. (5) Diastolic dysfunction: Code(s): I51.89 - Other ill-defined heart diseases Status: Chronic Assessment and Plan: Echocardiogram showing EF of 65-70% with normal diastolic function. It was a technically difficult study. Oral Lasix have been continued. Will switch to IV for 24 hours see this improves his respiratory condition. (6) Obstructive sleep apnea: Code(s): G47.33 - Obstructive sleep apnea (adult) (pediatric) Status: Acute Assessment and Plan: Patient with chronic FERNANDO. As above. (7) Seizure disorder: Code(s): G40.909 - Epilepsy, unspecified, not intractable, without status epilepticus Status: Acute Assessment and Plan: Patient with seizure disorder. Continue Topamax and Dilantin. Check level. (8) Anemia: Code(s): D64.9 - Anemia, unspecified Status: Acute Assessment and Plan: On chart review, patient a hemoglobin at runs mostly in the 9-10 range. Hemoglobin low in the 9 range currently. No recent anemia workup. Proceed with workup. Plan DVT prophylaxis: Lovenox Code status: Modified code Subjective Date/time seen: 04/12/22 14:42 Interval history: 71-year-old male with COPD and chronic respiratory failure here for increasing shortness of breath. Assuming care. Chart reviewed. Patient presents with shortness of breath and chest tightness which is typical for him when he has his COPD exacerbations. He denies any cough. Denies any trigger that may explain why his COPD was flaring. He was wheezing. He wears 4 L at rest and 6 L with activity chronically. He is also on BiPAP at night with 5 L bleed in. He is passing flatus. Exam Narrative: AF 97.1 135/57 77 24 95% HFNC Gen - NARD on bipap (at the time of my exam) Chest - distant BS with scattered wheezes CV - RRR S1/S2; tele showing no significant dysrhythmias Abd - Soft, protuberant, positive bowel sounds for Ext -
--- NOTE | 2022-04-12 15:00 | PM.CNPUL ---
Assessment and Plan Assessment and plan (1) Acute on chronic respiratory failure with hypoxia and hypercapnia: Code(s): J96.21 - Acute and chronic respiratory failure with hypoxia; J96.22 - Acute and chronic respiratory failure with hypercapnia Status: Acute Assessment and Plan: He normally uses O2 at home, 4-5 L/min at rest and 6 L a minute with exertion, has COPD, and had COVID at the end of February. He saw my partner Dr Gonzalez in pulmonary clinic on April 04, and he was completely back to baseline after COVID. He felt fine. He developed symptoms 3 days prior to this admission, increasing shortness of breath but really no cough and no excessive sputum production. He did not have fever, loss of sense of taste or smell, and he was eating normally. His ABG today shoed PH 7.36, pCO2 78, PO2 104.7, bicarbonate 43.8 saturation 97.3% on BiPAP 12/6, 45% and a rate of 16. He used BiPAP last night and today is on high flow nasal cannula at 7 L/min. This man looks amazingly stable sitting on the side of the bed playing solitaire. He looks like he has nothing wrong with him. This may be the 'happy hypoxia' that COVID is known for, with shunting in the periphery. His pH is compensated, he is able to tolerate BiPAP at night and high flow nasal cannula in the day. Can be retested for oxygen need prior to discharge. (2) Pneumonia due to COVID-19 virus: Code(s): U07.1 - COVID-19; J12.82 - Pneumonia due to coronavirus disease 2019 Status: Acute Assessment and Plan: Had COVID in February, recovered, and now admitted with (+) COVID PCR again with new symptoms aklthough he is not that ill. He looks great, sitting up in bed, playing solitaire, mentation is great. I think this is a new episode fo COVID and not a lingering episode. I d/w dr Green, and he can be re=treated for this new event. I stopped solumedrol, started dexamethasone 6 mg IV Q day for 10 days, stopped azithromycin three times a week that he uses for bronchiectasis management; he is starting on IV Cefepime and I will add Levaquin po so he has 2 anti-pseudomonal medications. He is on a lower remdesivir dose for his COVID, 100 mg a day. (3) Chronic obstructive pulmonary disease: Code(s): J44.9 - Chronic obstructive pulmonary disease, unspecified Status: Acute Assessment and Plan: He has COPD and bronchiectasis, has grown Pseudomonas in the past which was a pansensitive strain. Will continue bronchodilator therapy and will have steroids dexamethasone 6 mg IV a day for COVID pneumonia. This will suffice for steroid treatment for his baseline COPD. He was on Is the mycin Sunday at home. He is now on IV cefepime and oral Levaquin so he does not need the azithromycin. Plan I will continue to follow with you. Thank you for the consult. I spoke with Dr Green, and this does appear to be a repeat COVID episode, not the same case that he had in February. He actually got completely better and had lower O2 needs prior to this episode. He has not been vaccinated yet. Maybe he would benefit from vaccination against COVID when he is post-infection 3 months or so. History of Present Illness History of Present Illness Consult date: 04/12/22 Requesting physician: Mirian Medina NP Chief complaint: COVID + Hypoxic, COPD Narrative: NEW: Quentin Zavaleta is a 71 yo man with bronchiectasis, COPD, chronic respiratory failure on home O2, had episode of COVID March 04, improved and was seen in our office by my associate on April 04, was much better, back to his baseline as far as O2 use, shortness of breath and level of energy. He is now requiring more O2, 7 L/min .............. . He has deteriorated ove
[2022-04-12 15:41] LABS: Alanine Aminotransferase 14 U/L (6-50); Estimated CRCL calculation 64 ml/min; Estimated Glomerular Filt Rate > 60
[2022-04-12 15:59] LABS: Prothrombin Time 13.2 Seconds (11.1-14.7)
[2022-04-12] MEDS: REMDESIVIR 200 MG/NS 250 ML 200 MG/250 ML BAG 250 MG IVPB (17:21)
[2022-04-12] MEDS: FUROSEMIDE INJ 40 MG/4 ML VIAL IV PUSH (17:22)
[2022-04-12] MEDS: ATORVASTATIN 40 MG TABLET PO (21:59)
[2022-04-13] VITALS (30 sets, daily range): BP systolic 111–161; BP diastolic 55–67; PULSE 66–87; RESP 18–31; TEMP 36.1–36.7; O2SAT 91–100
[2022-04-13] MEDS: IPRATROPIUM BR 0.02% INH SOLN 0.5 MG/2.5 ML VIAL 0.75 MG INHALATION ×4 (02:59→20:28)
[2022-04-13] MEDS: ALBUTEROL SULFATE NEB 2.5 MG/3 ML INH INHALATION ×4 (02:59→20:28)
[2022-04-13] MEDS: PHENYTOIN SODIUM 100 MG EXTENDED RELEASE CAP 200 MG PO ×3 (05:24→21:22)
[2022-04-13 05:37] LABS: Basophils Percent Auto 0.4 % (0.2-1.2); Eosinophils Percent Auto 0.4 % (0-4.4); Immature Granulocyte Absolute 0.11 K/mm3 (0.00-0.031); Immature Granulocyte Percent A 1.3 % (0-0.5); Lymphocytes Absolute Auto 0.97 K/mm3 (0.9-3.2); Lymphocytes Percent Auto 11.4 % (18.3-44.2); Mean Corpuscular Hemoglobin 30.3 pg (26-34); Mean Platelet Volume 9.8 fl (7.4-10.4); Monocytes Percent Auto 12.2 % (2.6-8.5); Neutrophils Absolute Auto 6.3 K/mm3 (1.3-6.7); Neutrophils Percent Auto 74.3 % (45.5-73.1); Platelet Count Result 176 k/mm3 (150-375); Red Blood Count 2.97 M/mm3 (4.6-6.20); Red Cell Distribution Width 15.9 % (11.5-14.5); White Blood Count 8.5 K/mm3 (4.5-10.0)
[2022-04-13 05:58] LABS: Iron 27 ug/dL (49-181)
[2022-04-13 06:03] LABS: Alanine Aminotransferase 10 U/L (6-50); Albumin Level 3.3 g/dL (3.5-5.1); Alkaline Phosphatase 104 U/L (38-126); Aspartate Amino Transferase 17 U/L (17-59); Bilirubin,Total 0.2 mg/dL (0.2-1.3); Blood Urea Nitrogen 38 mg/dL (9-20); Calcium 8.1 mg/dL (8.4-10.2); Carbon Dioxide > 40 mmol/L (22-30); Chloride 87 mmol/L (98-107); Estimated CRCL calculation 59 ml/min; Estimated Glomerular Filt Rate 60; Glucose 92 mg/dL (65-110); Magnesium 2.2 mg/dL (1.6-2.3); Phenytoin Dilantin 4 ug/mL (10-20); Phosphorus 4.3 mg/dL (2.5-4.5); Potassium 4.1 mmol/L (3.4-5.0); Sodium 134 mmol/L (137-145)
[2022-04-13 06:08] LABS: Percent Iron Saturation 8 % (20-50)
[2022-04-13 06:57] LABS: Folic Acid 11.9 ng/mL (2.76->20)
--- NOTE | 2022-04-13 09:21 | PCSTNOTE ---
Please refer to the Bedside Swallow Evaluation in the EMR. Please note, silent aspiration cannot be ruled out at bedside.
[2022-04-13] MEDS: ASPIRIN 81 MG ENTERIC TABLET PO (09:22)
[2022-04-13] MEDS: BICALUTAMIDE (*CHEMO) 50 MG TABLET PO (09:22)
[2022-04-13] MEDS: levoFLOXacin 500 MG TABLET PO (09:22)
[2022-04-13] MEDS: CLOPIDOGREL BISULFATE 75 MG TABLET PO (09:22)
[2022-04-13] MEDS: DEXAMETHASONE SOD PHOS INJ 4 MG/ML VIAL 6 MG IV PUSH (09:22)
[2022-04-13] MEDS: hydroCHLOROthiazide 12.5 MG CAPSULE PO (09:22)
[2022-04-13] MEDS: FLUoxetine HCL 20 MG CAPSULE PO ×2 (09:22→17:34)
[2022-04-13] MEDS: ENOXAPARIN 40 MG/0.4 ML SYRINGE SUB-Q (09:22)
[2022-04-13] MEDS: lisinopriL 20 MG TABLET PO (09:22)
[2022-04-13] MEDS: TOPIRAMATE 25 MG TABLET PO (09:22)
[2022-04-13] MEDS: FUROSEMIDE INJ 40 MG/4 ML VIAL IV PUSH ×2 (09:22→17:34)
[2022-04-13] MEDS: PANTOPRAZOLE 40 MG TABLET PO ×2 (09:22→21:22)
[2022-04-13] MEDS: FAMOTIDINE 20 MG TABLET PO (09:22)
[2022-04-13] MEDS: REMDESIVIR 100 MG/NS 250 ML 100 MG/250 ML BAG 250 MG IVPB (09:29)
--- NOTE | 2022-04-13 11:19 | PM.IMPN ---
Progress Note: A&P Assessment and Plan (1) Acute on chronic respiratory failure with hypoxia and hypercapnia: Code(s): J96.21 - Acute and chronic respiratory failure with hypoxia; J96.22 - Acute and chronic respiratory failure with hypercapnia Status: Acute Assessment and Plan: Patient started on BiPAP due to acute on chronic respiratory failure. CXR shows widespread opacities superimposed on a background of chronic lung disease consistent with pneumonia or pulmonary edema. CTA of the chest showed no evidence of pulmonary embolism but did show severe emphysema and bronchiectasis. He also had bilateral lower infiltrates or atelectasis right greater than left. ABG 7.37/78/105 on bipap. COVID positive. Consider CHF, pneumonia, and/or COVID. Speech therapy recommended easy to chew but no concerns for aspiration. Was started on treatment for COVID. Also on Lasix IV. Continue steroids and nebulizer treatments. Better. Continue to wean O2 to baseline O2 of 4L at rest, 6L with exertion. (2) COPD exacerbation: Code(s): J44.1 - Chronic obstructive pulmonary disease with (acute) exacerbation Status: Acute Assessment and Plan: No further wheezing with distant breath sounds. Continue with nebulizer treatments and steroids. WBC normal and no fever. Persistent cough with abnml CXR. Cefepime and Levaquin added. Sputum ordered. (3) COVID-19: Code(s): U07.1 - COVID-19 Status: Acute Assessment and Plan: Patient tested positive May for COVID. He completed 10 days of remdesivir and dexamethasone at that time. He was on Solu-Medrol but changed to Decadron and Remdesivir added. Also started on lasix with interval improvement in his CXR and clinical exam. 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 Continue nebulizer treatment (4) Hypertension: Code(s): I10 - Essential (primary) hypertension Status: Acute Assessment and Plan: Patient's blood pressure was reviewed on 04/13 Blood pressure remains reasonably well controlled. Will continue current medications. (5) Diastolic dysfunction: Code(s): I51.89 - Other ill-defined heart diseases Status: Chronic Assessment and Plan: Echocardiogram showing EF of 65-70% with normal diastolic function. It was a technically difficult study. He was switched to IV Lasix with improvement in his CXR findings and clinical situation. Will continue lasix IV for one more day. (6) Obstructive sleep apnea: Code(s): G47.33 - Obstructive sleep apnea (adult) (pediatric) Status: Acute Assessment and Plan: Patient with chronic FERNANDO. Continue BiPAP at night and with naps. As above. (7) Seizure disorder: Code(s): G40.909 - Epilepsy, unspecified, not intractable, without status epilepticus Status: Acute Assessment and Plan: Patient with seizure disorder. Dilatin level okay. Continue Topamax and Dilantin. (8) Anemia: Code(s): D64.9 - Anemia, unspecified Status: Acute Assessment and Plan: On chart review, patient a hemoglobin at runs mostly in the 9-10 range. Hemoglobin low in the 9 range currently. No recent anemia workup. Proceeded with workup with finding iron deficiency. B12 level still pending. Replace iron. Plan DVT prophylaxis: Lovenox Code status: Modified code Subjective Date/time seen: 04/13/22 11:19 Interval history: 71-year-old male with COPD and chronic respiratory failure here for increasing shortness of breath. Feels better. Shortness of breath is improved. Still with wet cough. No issues overnight. He did wear the BiPAP last night. Exam Narrative: AF 97.9 143/67 66 18 97% HFNC 6L Gen - NARD siting at the side of the bed Chest - distant BS with right base inspiratory crackles. nml RR. no conversational dyspnea CV - RRR S1/S2; tele showing PVCs but no significant dysrhythmias Abd - Soft, protuberant, positive bowel sounds, NT Ex
[2022-04-13] MEDS: FERROUS SULFATE 324 MG TABLET PO (17:34)
[2022-04-13] MEDS: ATORVASTATIN 40 MG TABLET PO (21:21)
[2022-04-14] VITALS (22 sets, daily range): BP systolic 116–163; BP diastolic 46–65; PULSE 62–88; RESP 16–23; TEMP 35.9–36.7; O2SAT 90–97
[2022-04-14] MEDS: ALBUTEROL SULFATE NEB 2.5 MG/3 ML INH INHALATION ×4 (01:55→21:06)
[2022-04-14] MEDS: IPRATROPIUM BR 0.02% INH SOLN 0.5 MG/2.5 ML VIAL 0.75 MG INHALATION ×4 (01:55→21:06)
[2022-04-14 05:00] LABS: Hematocrit 30.7 % (42.0-52.0); Hemoglobin 9.3 g/dL (14.0-18.0); Mean Corpuscular HGB Conc 30.3 g/dl (32-36); Mean Corpuscular Hemoglobin 30.3 pg (26-34); Mean Platelet Volume 9.3 fl (7.4-10.4); Platelet Count Result 162 k/mm3 (150-375); Red Blood Count 3.07 M/mm3 (4.6-6.20); Red Cell Distribution Width 16.2 % (11.5-14.5); White Blood Count 7.7 K/mm3 (4.5-10.0)
[2022-04-14 05:08] LABS: INR 1.1; Prothrombin Time 13.9 Seconds (11.1-14.7)
[2022-04-14] MEDS: PHENYTOIN SODIUM 100 MG EXTENDED RELEASE CAP 200 MG PO ×3 (05:13→20:27)
[2022-04-14 05:28] LABS: Alanine Aminotransferase 9 U/L (6-50); Blood Urea Nitrogen 35 mg/dL (9-20); Calcium 8.3 mg/dL (8.4-10.2); Carbon Dioxide > 40 mmol/L (22-30); Chloride 84 mmol/L (98-107); Estimated CRCL calculation 59 ml/min; Estimated Glomerular Filt Rate 60; Glucose 91 mg/dL (65-110); Potassium 4.2 mmol/L (3.4-5.0); Sodium 134 mmol/L (137-145)
[2022-04-14] MEDS: FERROUS SULFATE 324 MG TABLET PO ×2 (07:22→16:12)
[2022-04-14] MEDS: ENOXAPARIN 40 MG/0.4 ML SYRINGE SUB-Q (08:27)
[2022-04-14] MEDS: REMDESIVIR 100 MG/NS 250 ML 100 MG/250 ML BAG 250 MG IVPB (08:27)
[2022-04-14] MEDS: CLOPIDOGREL BISULFATE 75 MG TABLET PO (08:28)
[2022-04-14] MEDS: DEXAMETHASONE SOD PHOS INJ 4 MG/ML VIAL 6 MG IV PUSH (08:28)
[2022-04-14] MEDS: FAMOTIDINE 20 MG TABLET PO (08:28)
[2022-04-14] MEDS: BICALUTAMIDE (*CHEMO) 50 MG TABLET PO (08:28)
[2022-04-14] MEDS: TOPIRAMATE 25 MG TABLET PO (08:28)
[2022-04-14] MEDS: levoFLOXacin 500 MG TABLET PO (08:28)
[2022-04-14] MEDS: FLUoxetine HCL 20 MG CAPSULE PO ×2 (08:28→16:12)
[2022-04-14] MEDS: ASPIRIN 81 MG ENTERIC TABLET PO (08:28)
[2022-04-14] MEDS: hydroCHLOROthiazide 12.5 MG CAPSULE PO (08:28)
[2022-04-14] MEDS: lisinopriL 20 MG TABLET PO (08:28)
[2022-04-14] MEDS: PANTOPRAZOLE 40 MG TABLET PO ×2 (08:28→20:27)
[2022-04-14] MEDS: FUROSEMIDE 40 MG TABLET PO (09:26)
--- NOTE | 2022-04-14 10:23 | PM.IMPN ---
Progress Note: A&P Assessment and Plan (1) Acute on chronic respiratory failure with hypoxia and hypercapnia: Code(s): J96.21 - Acute and chronic respiratory failure with hypoxia; J96.22 - Acute and chronic respiratory failure with hypercapnia Status: Acute Assessment and Plan: Patient started on BiPAP due to acute on chronic respiratory failure. CXR shows widespread opacities superimposed on a background of chronic lung disease consistent with pneumonia or pulmonary edema. CTA of the chest showed no evidence of pulmonary embolism but did show severe emphysema and bronchiectasis. He also had bilateral lower infiltrates or atelectasis right greater than left. ABG 7.37/78/105 on bipap. COVID positive. Consider CHF, pneumonia, and/or COVID. Speech therapy recommended easy to chew but no concerns for aspiration. Was started on treatment for COVID. Also on Lasix IV. Condition much improved and close to baseline O2 requirement. Continue steroids and nebulizer treatments. Continue to wean O2 to baseline O2 of 4L at rest, 6L with exertion. Add vest therapy. Change back to oral Lasix. (2) COPD exacerbation: Code(s): J44.1 - Chronic obstructive pulmonary disease with (acute) exacerbation Status: Acute Assessment and Plan: No further wheezing but with distant breath sounds. Continue with nebulizer treatments and steroids. WBC normal and no fever. Mild nonproductive cough now with abnml CXR. Continue Cefepime and Levaquin for now. Sputum ordered but not collected. Will check urine antigens. (3) COVID-19: Code(s): U07.1 - COVID-19 Status: Acute Assessment and Plan: Patient tested positive May for COVID. He completed 10 days of remdesivir and dexamethasone at that time. He tested positive for COVID again this admission. He was started on Solu-Medrol but changed to Decadron; Remdesivir added. Also started on lasix with interval improvement in his CXR and clinical exam. Appreciate heel breaster input. Continue nebulizer treatment, steroids and remdesivir. Change Lasix back to oral route. (4) Hypertension: Code(s): I10 - Essential (primary) hypertension Status: Acute Assessment and Plan: Patient's blood pressure was reviewed on 04/14 Blood pressure well controlled. Will continue current medications. (5) Diastolic dysfunction: Code(s): I51.89 - Other ill-defined heart diseases Status: Chronic Assessment and Plan: Echocardiogram showing EF of 65-70% with normal diastolic function. It was a technically difficult study. He was switched to IV Lasix with improvement in his CXR findings and clinical situation. Will change back to oral Lasix since he is close to baseline. (6) Obstructive sleep apnea: Code(s): G47.33 - Obstructive sleep apnea (adult) (pediatric) Status: Acute Assessment and Plan: Patient with chronic FERNANDO. Continue BiPAP at night and with naps. As above. (7) Seizure disorder: Code(s): G40.909 - Epilepsy, unspecified, not intractable, without status epilepticus Status: Acute Assessment and Plan: Patient with seizure disorder. Dilatin level okay. Continue Topamax and Dilantin. (8) Anemia: Code(s): D64.9 - Anemia, unspecified Status: Acute Assessment and Plan: On chart review, patient a hemoglobin at runs mostly in the 9-10 range. Hemoglobin low but stable in the 9 range. Anemia workup showing iron deficiency. B12 level still pending. Replace iron. Check stool guaiac. Plan DVT prophylaxis: Lovenox Code status: Modified code Subjective Date/time seen: 04/14/22 10:23 Interval history: 71-year-old male with COPD and chronic respiratory failure here for increasing shortness of breath. No issues overnight. Tolerated BiPAP well. No chest pain. Shortness of breath is close to baseline. No nausea or vomiting. Eating normally. Minimal nonproductive c
--- NOTE | 2022-04-14 16:45 | PM.PNPUL ---
Progress Note: A&P Assessment and Plan (1) Acute on chronic respiratory failure with hypoxia and hypercapnia: Code(s): J96.21 - Acute and chronic respiratory failure with hypoxia; J96.22 - Acute and chronic respiratory failure with hypercapnia Status: Acute Assessment and Plan: Improved, now at 4 L .min which is home flow. He has COPD, and had COVID at the end of February. He has a recurrent episode of COVID this month. He had hypercapnea and hypoxemia which improved on BiPAP. He is on a NPPV at home, Astral 100 ST mode with a back up rate of 12. (2) Pneumonia due to COVID-19 virus: Code(s): U07.1 - COVID-19; J12.82 - Pneumonia due to coronavirus disease 2018 Status: Acute Assessment and Plan: Had COVID in February, recovered, 04/11 admitted with (+) COVID PCR again with new symptoms, although not severely ill. This is a new episode fo COVID and not a lingering episode. he is on a repeat treatment for this w dexamethasone and remdesivir. Stopped azithromycin three times a week that he uses for bronchiectasis management; he is starting on IV Cefepime and oral Levaquin, 2 anti-pseudomonal medications. He is on a lower remdesivir dose for his COVID, 100 mg a day. (3) Chronic obstructive pulmonary disease: Code(s): J44.9 - Chronic obstructive pulmonary disease, unspecified Status: Acute Assessment and Plan: He has COPD and bronchiectasis, has grown Pseudomonas in the past which was a pansensitive strain. Will continue bronchodilator therapy and will have steroids dexamethasone 6 mg IV a day for COVID pneumonia. This will suffice for steroid treatment for his baseline COPD. Plan He has not been vaccinated yet against COVID. Maybe he would benefit from vaccination against COVID when he is post-infection 3 months or so. He has CO2 retention, however acetazolamide is contraindicated with his Topiramate which he has to take for his seizure disorder. Subjective Date/time seen: 04/14/22 16:45 Interval history: Hospital follow up : Quentin Zavaleta is a 71 yo man with a recurrent episode of COVID after an episode in February. He was admitted April 11 with acute on chronic hypoxemic respiratory failure and worsening shortness of breath, O2 requirement up to 6 L/min, chest tightness, but no fever, chills, or symptoms to suggest a COPD exacerbation.?He had no change in cough, no sputum or wheezing. He has not been vaccinated against COVID. He is now down to 4 L/min which wsa his baseline before getting sick this admission. CXR 04/13/22 yesterday showed improvement in bilateral infiltrates. His lower extremity edema is improved. His H/H is improving. WBC is normal. PMH: CAD, bronchiectasis, COPD, chronic respiratory failure on home O2, had episode of COVID February. Review of Systems Review of Systems: All systems reviewed & are unremarkable except as noted in HPI and below (HPI) Exam Narrative: GEN: Alert, oriented, not in distress. He is sitting up in a chair. HEENT: pupils are equal, EOMI, symmetrical face; oral membranes moist, Mallampati II airway NECK: Trachea is midline CHEST: Equal air entry, symmetric excursion, no crackles heard today. Lungs are clearer. CV: Regular S1S2 no m/g/r ABD : (+) bowel sounds Extremities : mild clubbing in fingertips; no cyanosis, trace edema lower legs PSYCH: normal thought and speech, gait is not tested. Objective Data Vital Signs Vital Signs: Vital Signs - 24 hr 04/13/22 16:52 04/13/22 18:00 04/13/22 20:00 Temperature 36.4 C 36.6 C Pulse Rate 75 81 70 Respiratory Rate 21 H 20 Blood Pressure 161/57 H 131/65 Pulse Oximetry 92 97 Oxygen Delivery Oxygen Flow Rate 0
--- NOTE | 2022-04-14 16:56 | PC.NURSE ---
This patient, Quentin Zavaleta, was transferred to [ [id number]] on 04/14/22 at 1656. Personal belongings sent with patient. Report given to [ZEESHAN Zepeda @ [phone] ]. Appropriate documentation sent with patient. Delay of transfer, d/t completion on antibiotics prior to transfer
--- NOTE | 2022-04-14 17:17 | PC.NURSE ---
pt transferred into room 311 via bed, oriented to new room and environment, reviewed plan of care, isolation precautions continued
[2022-04-14] MEDS: ATORVASTATIN 40 MG TABLET PO (20:27)
[2022-04-15] VITALS (14 sets, daily range): BP systolic 127–133; BP diastolic 54–59; PULSE 65–76; RESP 18–27; TEMP 36.1–36.9; O2SAT 93–99
[2022-04-15] MEDS: ALBUTEROL SULFATE NEB 2.5 MG/3 ML INH INHALATION ×4 (02:58→20:33)
[2022-04-15] MEDS: IPRATROPIUM BR 0.02% INH SOLN 0.5 MG/2.5 ML VIAL 0.75 MG INHALATION ×4 (03:02→20:33)
[2022-04-15] MEDS: PHENYTOIN SODIUM 100 MG EXTENDED RELEASE CAP 200 MG PO ×3 (05:06→21:25)
[2022-04-15] MEDS: FERROUS SULFATE 324 MG TABLET PO ×2 (06:49→17:03)
[2022-04-15 06:52] LABS: Hematocrit 31.8 % (42.0-52.0); Hemoglobin 9.6 g/dL (14.0-18.0); Mean Corpuscular HGB Conc 30.2 g/dl (32-36); Mean Corpuscular Hemoglobin 29.8 pg (26-34); Mean Corpuscular Volume 98.8 fl (80-100); Mean Platelet Volume 9.6 fl (7.4-10.4); Platelet Count Result 159 k/mm3 (150-375); Red Blood Count 3.22 M/mm3 (4.6-6.20); Red Cell Distribution Width 15.9 % (11.5-14.5); White Blood Count 7.3 K/mm3 (4.5-10.0)
[2022-04-15 07:01] LABS: INR 1.1; Prothrombin Time 13.7 Seconds (11.1-14.7)
[2022-04-15 07:13] LABS: Alanine Aminotransferase 11 U/L (6-50); Blood Urea Nitrogen 33 mg/dL (9-20); Calcium 8.1 mg/dL (8.4-10.2); Carbon Dioxide > 40 mmol/L (22-30); Chloride 85 mmol/L (98-107); Estimated CRCL calculation 64 ml/min; Estimated Glomerular Filt Rate > 60; Glucose 99 mg/dL (65-110); Potassium 4.1 mmol/L (3.4-5.0); Sodium 130 mmol/L (137-145)
[2022-04-15] MEDS: lisinopriL 20 MG TABLET PO (10:04)
[2022-04-15] MEDS: CLOPIDOGREL BISULFATE 75 MG TABLET PO (10:04)
[2022-04-15] MEDS: BICALUTAMIDE (*CHEMO) 50 MG TABLET PO (10:04)
[2022-04-15] MEDS: FLUoxetine HCL 20 MG CAPSULE PO ×2 (10:04→17:04)
[2022-04-15] MEDS: levoFLOXacin 500 MG TABLET PO (10:04)
[2022-04-15] MEDS: TOPIRAMATE 25 MG TABLET PO (10:04)
[2022-04-15] MEDS: ASPIRIN 81 MG ENTERIC TABLET PO (10:04)
[2022-04-15] MEDS: FUROSEMIDE 40 MG TABLET PO (10:04)
[2022-04-15] MEDS: PANTOPRAZOLE 40 MG TABLET PO ×2 (10:04→21:25)
[2022-04-15] MEDS: hydroCHLOROthiazide 12.5 MG CAPSULE PO (10:04)
[2022-04-15] MEDS: FAMOTIDINE 20 MG TABLET PO (10:05)
[2022-04-15] MEDS: ENOXAPARIN 40 MG/0.4 ML SYRINGE SUB-Q (10:05)
[2022-04-15] MEDS: DEXAMETHASONE SOD PHOS INJ 4 MG/ML VIAL 6 MG IV PUSH (10:05)
--- NOTE | 2022-04-15 10:20 | PC.NURSE ---
waiting on remdesivir dose to be delivered by clinical pharmacy specialist
[2022-04-15] MEDS: REMDESIVIR 100 MG/NS 250 ML 100 MG/250 ML BAG 250 MG IVPB (11:37)
--- NOTE | 2022-04-15 13:07 | PM.IMPN ---
Progress Note: A&P Assessment and Plan (1) Acute on chronic respiratory failure with hypoxia and hypercapnia: Code(s): J96.21 - Acute and chronic respiratory failure with hypoxia; J96.22 - Acute and chronic respiratory failure with hypercapnia Status: Acute Assessment and Plan: Patient started on BiPAP due to acute on chronic respiratory failure. CXR shows widespread opacities superimposed on a background of chronic lung disease consistent with pneumonia or pulmonary edema. CTA of the chest showed no evidence of pulmonary embolism but did show severe emphysema and bronchiectasis. He also had bilateral lower infiltrates or atelectasis right greater than left. ABG 7.37/78/105 on bipap. COVID positive. Consider CHF, pneumonia, and/or COVID. Speech therapy recommended easy to chew but no concerns for aspiration. Was started on treatment for COVID. Also on Lasix IV but has since changed back to oral. Condition much improved and at baseline O2 requirement of 4L at rest and 6L with exertion. CXR reviewed today showing probably chronic findings. Continue Remdesivir, steroids and nebulizer treatments. Continue vest therapy. (2) COPD exacerbation: Code(s): J44.1 - Chronic obstructive pulmonary disease with (acute) exacerbation Status: Acute Assessment and Plan: No further wheezing. Continue with nebulizer treatments and steroids. WBC normal and no fever. Resolving mild nonproductive cough. Continue Cefepime and Levaquin for now. Sputum ordered but not collected. Stop Abx? (3) COVID-19: Code(s): U07.1 - COVID-19 Status: Acute Assessment and Plan: Patient tested positive in February for COVID. He completed 10 days of remdesivir and dexamethasone at that time. He tested positive for COVID again this admission. He was started on Solu-Medrol but changed to Decadron; Remdesivir added. Also started on lasix with interval improvement in his CXR and clinical exam. Appreciate safety sitter input. Continue nebulizer treatment, steroids and remdesivir. Changed Lasix back to oral route. Finish Remdesivir tomorrow. (4) Hypertension: Code(s): I10 - Essential (primary) hypertension Status: Acute Assessment and Plan: Patient's blood pressure was reviewed on 04/15 Blood pressure elevated at times. Will continue current medications. (5) Diastolic dysfunction: Code(s): I51.89 - Other ill-defined heart diseases Status: Chronic Assessment and Plan: Echocardiogram showing EF of 65-70% with normal diastolic function. It was a technically difficult study. He was switched to IV Lasix with improvement in his CXR findings and clinical situation. Back to oral Lasix now. Follow (6) Obstructive sleep apnea: Code(s): G47.33 - Obstructive sleep apnea (adult) (pediatric) Status: Acute Assessment and Plan: Patient with chronic FERNANDO. Continue BiPAP at night and with naps. As above. (7) Seizure disorder: Code(s): G40.909 - Epilepsy, unspecified, not intractable, without status epilepticus Status: Acute Assessment and Plan: Patient with seizure disorder. Dilatin level okay. Continue Topamax and Dilantin. (8) Anemia: Code(s): D64.9 - Anemia, unspecified Status: Acute Assessment and Plan: On chart review, patient a hemoglobin at runs mostly in the 9-10 range. Hemoglobin low but stable in the 9 range. Anemia workup showing iron deficiency. Continue oral iron replacement. Plan DVT prophylaxis: Lovenox Code status: Modified code Subjective Date/time seen: 04/15/22 13:07 Interval history: 71-year-old male with COPD and chronic respiratory failure here for increasing shortness of breath. No chest pain or shortness of breath. Denies cough. Eating well. No nausea or vomiting. He has not had a COVID vaccine but is considering it. Exam Narrative: AF 96.9 163/63 70 20 99% 4L Gen - NARD
[2022-04-15] MEDS: ATORVASTATIN 40 MG TABLET PO (21:25)
[2022-04-16] VITALS (10 sets, daily range): BP systolic 113–144; BP diastolic 36–88; PULSE 68–88; RESP 18–20; TEMP 35.9–36.8; O2SAT 90–100
[2022-04-16] MEDS: IPRATROPIUM BR 0.02% INH SOLN 0.5 MG/2.5 ML VIAL 0.75 MG INHALATION ×2 (02:09→09:20)
[2022-04-16] MEDS: ALBUTEROL SULFATE NEB 2.5 MG/3 ML INH INHALATION ×2 (02:09→09:19)
[2022-04-16] MEDS: FERROUS SULFATE 324 MG TABLET PO (06:10)
[2022-04-16] MEDS: PHENYTOIN SODIUM 100 MG EXTENDED RELEASE CAP 200 MG PO ×2 (06:10→14:12)
[2022-04-16 06:58] LABS: Alanine Aminotransferase 13 U/L (6-50); Estimated CRCL calculation 64 ml/min; Estimated Glomerular Filt Rate > 60
[2022-04-16 07:14] LABS: INR 1.1; Prothrombin Time 13.6 Seconds (11.1-14.7)
[2022-04-16] MEDS: PANTOPRAZOLE 40 MG TABLET PO (09:00)
[2022-04-16] MEDS: FAMOTIDINE 20 MG TABLET PO (09:01)
[2022-04-16] MEDS: hydroCHLOROthiazide 12.5 MG CAPSULE PO (09:01)
[2022-04-16] MEDS: ASPIRIN 81 MG ENTERIC TABLET PO (09:01)
[2022-04-16] MEDS: BICALUTAMIDE (*CHEMO) 50 MG TABLET PO (09:01)
[2022-04-16] MEDS: TOPIRAMATE 25 MG TABLET PO (09:01)
[2022-04-16] MEDS: FLUoxetine HCL 20 MG CAPSULE PO (09:01)
[2022-04-16] MEDS: CLOPIDOGREL BISULFATE 75 MG TABLET PO (09:01)
[2022-04-16] MEDS: levoFLOXacin 500 MG TABLET PO (09:01)
[2022-04-16] MEDS: ENOXAPARIN 40 MG/0.4 ML SYRINGE SUB-Q (09:02)
[2022-04-16] MEDS: FUROSEMIDE 40 MG TABLET PO (09:02)
[2022-04-16] MEDS: DEXAMETHASONE SOD PHOS INJ 4 MG/ML VIAL 6 MG IV PUSH (09:02)
[2022-04-16] MEDS: lisinopriL 20 MG TABLET PO (09:02)
[2022-04-16] MEDS: REMDESIVIR 100 MG/NS 250 ML 100 MG/250 ML BAG 250 MG IVPB (09:50)
--- NOTE | 2022-04-16 13:28 | PM.DS ---
DS: Admitting Diagnosis Discharge Date 04/16/22 Admitting Diagnosis Shortness of breath DS: Discharge Diagnosis Discharge Diagnosis (1) Acute on chronic respiratory failure with hypoxia and hypercapnia: Code(s): J96.21 - Acute and chronic respiratory failure with hypoxia; J96.22 - Acute and chronic respiratory failure with hypercapnia Status: Acute Assessment and Plan: Patient was started on BiPAP in the ED due to acute on chronic respiratory failure. CXR showed widespread opacities superimposed on a background of chronic lung disease consistent with pneumonia and/or pulmonary edema. CTA of the chest showed no evidence of pulmonary embolism but did show severe emphysema and bronchiectasis. He also had bilateral lower infiltrates or atelectasis right greater than left. ABG 7.37/78/105 on bipap. COVID-19 positive. Speech therapy recommended easy to chew but no concerns for aspiration. Was started on treatment for COVID as well as for bacterial PNA. Also started on Lasix IV. Condition much improved and we were able to wean O2 back to baseline requirement of 4L at rest and 6L with exertion. Patient feels much better today. He has completed 5 days of remdesivir. He feels ready for discharge. Home today. (2) COPD exacerbation: Code(s): J44.1 - Chronic obstructive pulmonary disease with (acute) exacerbation Status: Acute Assessment and Plan: Patient was treated with nebulizer treatments and steroids. WBC normal and no fever. Resolving mild nonproductive cough. No further wheezing. (3) COVID-19: Code(s): U07.1 - COVID-19 Status: Acute Assessment and Plan: Patient tested positive in February for COVID. He completed 10 days of remdesivir and dexamethasone at that time. He has been unwilling to take the COVID vaccine. He tested positive for COVID again this admission. He was started on Solu-Medrol but changed to Decadron; Remdesivir added. Also treated with IV Lasix with interval improvement in his CXR and clinical exam. Appreciated gasoline service attendant input. Home with dexamethasone to complete a 10 day course. (4) Hypertension: Code(s): I10 - Essential (primary) hypertension Status: Acute Assessment and Plan: Patient's blood pressure was monitored closely. (5) Diastolic dysfunction: Code(s): I51.89 - Other ill-defined heart diseases Status: Chronic Assessment and Plan: Echocardiogram 04/11 showing EF of 65-70% with normal diastolic function. It was a technically difficult study. He was switched to IV Lasix with improvement in his CXR findings and clinical situation. Back to oral Lasix now. (6) Obstructive sleep apnea: Code(s): G47.33 - Obstructive sleep apnea (adult) (pediatric) Status: Acute Assessment and Plan: Patient with chronic FERNANDO. Patient was compliant with BiPAP. Continue the same at home. (7) Seizure disorder: Code(s): G40.909 - Epilepsy, unspecified, not intractable, without status epilepticus Status: Acute Assessment and Plan: Patient with seizure disorder. Dilatin level okay. We continued his Topamax and Dilantin. (8) Anemia: Code(s): D64.9 - Anemia, unspecified Status: Acute Assessment and Plan: On chart review, patient has a hemoglobin at runs mostly in the 9-10 range. Hemoglobin low but stable in the 9 range. Anemia workup showing iron deficiency. Continue oral iron replacement. Stool for occult blood ordered but not able to be collected. DS: Summary Hospital Course Reason for hospitalization: 71-year-old male with COPD and chronic respiratory failure here for increasing shortness of breath. Please see H&P for details. Hospital Course: Please see above for details of hospital course. Status at Discharge Cognitive/behavioral status at discharge: Stable Time Spent with Patient Time attestation: Total time spent providi
[2022-04-16 22:55] LABS: Pneumococcal Antigen Urine Not Detected (Not Detected)
[2022-04-17 21:32] LABS: Legionella pneumophila Ag Ur Not Detected (Not Detected)
--- NOTE | 2022-04-25 10:07 | PC.NURSE ---
Urine legionella and Pneumococcal AG are both negative. Dr. Norma frazier.
== END 2022-04-16 14:10 | disposition home or self-care (01) | DRG 177 ==
LOC: ANHED 12:57 → ANH3MEDSUR 19:14 → ANHIMU 23:59 → ANH3MEDSUR 04-16 13:42 → ANHIMU 04-17 16:23
PROVIDERS: Nurse Practitioner; Admitting Provider Student in an Organized Health Care Education/Training Program; Emergency Provider Emergency Medicine; PCP Student in an Organized Health Care Education/Training Program; Visit Provider Internal Medicine
DX: U07.1 COVID-19 (principal); J12.82 Pneumonia due to coronavirus disease 2019; J96.21 Acute and chronic respiratory failure with hypoxia; J96.22 Acute and chronic respiratory failure with hypercapnia; J15.9 Unspecified bacterial pneumonia; J43.9 Emphysema, unspecified; G47.33 Obstructive sleep apnea (adult) (pediatric); I10 Essential (primary) hypertension; D50.9 Iron deficiency anemia, unspecified; G40.909 Epilepsy, unspecified, not intractable, without status epilepticus; I51.89 Other ill-defined heart diseases; I25.10 Atherosclerotic heart disease of native coronary artery without angina pectoris; E78.5 Hyperlipidemia, unspecified; I73.9 Peripheral vascular disease, unspecified; Z79.82 Long term (current) use of aspirin; Z85.46 Personal history of malignant neoplasm of prostate; Z87.891 Personal history of nicotine dependence; Z99.81 Dependence on supplemental oxygen; Z86.73 Personal history of transient ischemic attack (TIA), and cerebral infarction without residual deficits; Z86.16 Personal history of COVID-19
CPT/HCPCS: 36415; 36600; 71045; 71275; 80048; 80053; 80185; 82565; 82607; 82728; 82746; 82805; 83540; 83550; 83735; 83880; 84100; 84460; 84484; 85025; 85027; 85610; 87449; 87899; 92610; 93005; 93306; 93970; 94002; 94003; 94640; 94660; 94669; 97161; 97165; 99291; A9270; C9803; J0248; J0692; J1100; J1650; J1940; J2930; J7512; Q9967; U0003; U0005

== ENCOUNTER 2022-05-02 21:00 | Inpatient (IN) | payer MEDICARE, SELFPAY ==
[2022-05-02] VITALS (14 sets, daily range): BP systolic 95–148; BP diastolic 51–73; PULSE 80–90; RESP 21–27; TEMP 36.8; O2SAT 98–100
--- NOTE | ~2022-05-02 | CT_ITS ---
EXAMINATION: CTA chest PE protocol DATE: 05/02/2022 23:27 INDICATION: Prior COVID presenting with severe hypoxia TECHNIQUE: Computed tomography (CT) pulmonary angiogram of the chest was performed with 100 mL Omnipa que-350 intravenous contrast. Additional 3D reconstructions utilizing coronal maximum intensity proje ction (MIP) were performed. Automated exposure control and iterative reconstruction technique were em ployed. The dose-length product was 968.76 mGy-cm. COMPARISON: 04/11/2022 FINDINGS: Good contrast opacification of the pulmonary arteries. There is moderate streak artifact from dense c ontrast in the veins draining the right upper extremity, the superior vena cava and right atrium. Is also moderate scattered respiratory motion artifact. Together this significantly decreases sensitivit y in some of the subsegmental pulmonary arteries particularly at the lung bases where assessment of t he subsegmental pulmonary arteries is nondiagnostic. No pulmonary embolism. Severe emphysema. Persist ent bronchiectasis with some nucleus plugging, predominantly in the right lower lobe and to lesser de gree in the right upper lobe. Multiple small centrilobular nodules and some patchy groundglass opacit ies predominantly in the right middle and lower lobes and more subtly in the right upper and left low er lobes which appear without significant interval change, likely postinfectious in etiology. No pleu ral effusion or pneumothorax. Heart size is normal. Atherosclerotic coronary artery calcifications. N o pericardial effusion. Enlargement of the central pulmonary arteries consistent with pulmonary arter ial hypertension. Atherosclerotic calcifications along the normal caliber thoracic aorta with no diss ection or hemodynamically significant stenosis. Mildly prominent likely reactive right hilar lymph no aliyah. A few small calcified pulmonary nodules as well as calcified bilateral hilar and periportal lymp h nodes and multiple hepatic and splenic calcifications, all consistent with old granulomatous diseas e. Bilateral gynecomastia. 2.2 x 1.2 cm subcutaneous likely epidermoid cyst located anterior to the s ternum. Moderate lower cervical and mild thoracic spondylosis.. IMPRESSION: 1. No pulmonary embolism with sensitivity decreased in some of the smaller subsegmental pulmonary art eries particularly at the lung bases where it is essentially nondiagnostic. 2. Likely chronic scattered pneumonia most severe in the right lower lobe where there is associated b ronchiectasis. 3. Severe emphysema. Reviewed, dictated and finalized at location A. IMPRESSION: 1. No pulmonary embolism with sensitivity decreased in some of the smaller subs egmental pulmonary arteries particularly at the lung bases where it is essentia lly nondiagnostic. 2. Likely chronic scattered pneumonia most severe in the right lower lobe where there is associated bronchiectasis. 3. Severe emphysema.
--- NOTE | ~2022-05-02 | XR_ITS ---
XR chest 1V portable 05/12/2022 10:09 Indication: Hypercapnia. Hypoxia. Procedure: AP portable chest Comparison: Comparison to multiple prior studies sequentially, with oldest reviewed study dated 05/02. Findings: Cardiomegaly. Diffuse bilateral airspace disease. No significant effusion or pneumothorax. Impression: 1: Persistent diffuse bilateral opacities have increased which may represent edema or pneumonia. Reviewed, dictated and finalized at location A. Impression: 1: Persistent diffuse bilateral opacities have increased which may represent ed amy or pneumonia.
--- NOTE | ~2022-05-02 | XR_ITS ---
EXAMINATION: XR chest 1V portable Exam Date/Time: 05/02/2022 21:15 CDT HISTORY: respiratory distress, LOW O2 STATS TODAY, HX COVID Comparison: 04/15/2022. RESULT: Lines, tubes, and devices: None. Lungs and pleura: Slightly increased fine reticular and groundglass opacity mid and peripheral lungs , overlying coarse interstitial opacities. Cardiomediastinal silhouette: Stable. Other: No acute osseous or upper abdominal finding. IMPRESSION: Pulmonary opacities may reflect infection or interstitial edema, overlying chronic interstitial pulliam e. Reviewed, dictated and finalized at location K. IMPRESSION: Pulmonary opacities may reflect infection or interstitial edema, overlying driller and broacher diana interstitial change.
--- NOTE | ~2022-05-02 | XR_ITS ---
EXAMINATION: XR chest 1V portable DATE: 05/04/2022 05:29 INDICATION: COPD exacerbation. Pneumonia. TECHNIQUE: frontal view of the chest was obtained. COMPARISON: Chest radiograph and CT dated 05/02/2022 FINDINGS: Consider coarse reticular and mild patchy airspace opacities in the right mid to lower and left lower lung zones. No pleural effusion or pneumothorax. The cardiomediastinal silhouette is within normal l imits for AP technique. IMPRESSION: 1. Unchanged bilateral lung disease, greatest at the right lung base which could represent atelectasi s/scarring, pulmonary edema or pneumonia superimposed over emphysema and bronchiectatic changes in th e right lower lung. Reviewed, dictated and finalized at location A. IMPRESSION: 1. Unchanged bilateral lung disease, greatest at the right lung base which coul d represent atelectasis/scarring, pulmonary edema or pneumonia superimposed ove r emphysema and bronchiectatic changes in the right lower lung.
--- NOTE | ~2022-05-02 | XR_ITS ---
EXAMINATION: XR chest 1V portable DATE: 05/10/2022 10:30 INDICATION: Pneumonia TECHNIQUE: frontal view of the chest was obtained. COMPARISON: Chest radiograph dated 05/08/2022 FINDINGS: Streaky discoid atelectasis in the right midlung zone. Mild and less well-defined airspace opacities in the right lower lung zone which could represent additional atelectasis or pneumonia. No pleural ef fusion or pneumothorax. The cardiomediastinal silhouette is normal. IMPRESSION: 1. Persistent opacities in the right lower lung zone which could represent atelectasis or pneumonia. Reviewed, dictated and finalized at location A. IMPRESSION: 1. Persistent opacities in the right lower lung zone which could represent atel ectasis or pneumonia.
--- NOTE | ~2022-05-02 | XR_ITS ---
EXAMINATION: XR chest 1V portable DATE: 05/08/2022 12:53 INDICATION: Pneumonia TECHNIQUE: frontal view of the chest was obtained. COMPARISON: Chest radiograph dated 05/04/[address] dated 05/02/2022 FINDINGS: No significant interval change in coarse reticular and mild airspace opacities in the left lower lung zone and throughout the right lung with lower lung predominance. No pleural effusion or pneumothorax . The cardiomediastinal silhouette is normal. IMPRESSION: 1. No significant change in bilateral lung disease, greatest at the right lung base which could repre sent atelectasis/scarring, pulmonary edema or pneumonia superimposed over emphysema and bronchiectati c changes in the right lower lung Reviewed, dictated and finalized at location A. IMPRESSION: 1. No significant change in bilateral lung disease, greatest at the right lung base which could represent atelectasis/scarring, pulmonary edema or pneumonia s uperimposed over emphysema and bronchiectatic changes in the right lower lung
--- NOTE | 2022-05-02 21:09 | ECG_ITS ---
Measurements Intervals Spencer Rate: 85 P: 61 DE: 168 QRS: 69 QRSD: 98 T: 59 QT: 337 QTc: 403 Interpretive Statements SINUS RHYTHM WITH SINUS ARRHYTHMIA BASELINE WANDER- V4, V6 NORMAL ECG Electronically Signed On 05-03-2022 6:41:34 CDT by Julien Ku D.O.
[2022-05-02] MEDS: IPRATROPIUM BR 0.02% INH SOLN 0.5 MG/2.5 ML VIAL 1 MG INHALATION (21:22)
[2022-05-02] MEDS: ALBUTEROL SULFATE NEB 2.5 MG/3 ML INH 10 MG INHALATION (21:22)
[2022-05-02 21:28] LABS: Alveolar/Arterial O2 Gradient 343.2 mmHg; Base Excess ABG 17.1 mEq/l (+/-2.0); Fractional Inspired Oxygen 100 %; HCO3 ABG 51.5 mEq/l (22.0-26.0); Oxygen Content ABG 15.8 %vol (16.0-22.0); Oxygen Saturation ABG 98.9 % (95.0-100.0); Oxyhemoglobin 97.4 % THb (90.0-100.0); PO2 ABG 211.2 mmHg (80.0-100.0); PO2 FiO2 Ratio Arterial Blood 2.11 %; Total Hemoglobin 11.2 g/dL (12.0-18.0)
[2022-05-02 21:29] LABS: PCO2 ABG 158.6 mmHg (35.0-45.0); pH ABG 7.129 (7.350-7.450)
[2022-05-02 21:30] LABS: Device NON-REBREATHER MASK; Modified Allen's Test Pass; Site Drawn RIGHT RADIAL
[2022-05-02 21:49] LABS: Glucose Point of Care 187 mg/dl (65-105)
[2022-05-02 21:55] LABS: Basophils Percent Auto 0.3 % (0.2-1.2); Eosinophils Absolute Auto 0.6 K/mm3 (0-0.3); Eosinophils Percent Auto 7.2 % (0-4.4); Hematocrit 35.8 % (42.0-52.0); Immature Granulocyte Absolute 0.07 K/mm3 (0.00-0.031); Immature Granulocyte Percent A 0.8 % (0-0.5); Lymphocytes Absolute Auto 0.42 K/mm3 (0.9-3.2); Lymphocytes Percent Auto 4.9 % (18.3-44.2); Mean Corpuscular HGB Conc 27.9 g/dl (32-36); Mean Corpuscular Hemoglobin 29.4 pg (26-34); Mean Corpuscular Volume 105.3 fl (80-100); Mean Platelet Volume 9.5 fl (7.4-10.4); Monocytes Absolute Auto 0.9 K/mm3 (0.1-0.6); Monocytes Percent Auto 10.5 % (2.6-8.5); Neutrophils Absolute Auto 6.6 K/mm3 (1.3-6.7); Neutrophils Percent Auto 76.3 % (45.5-73.1); Platelet Count Result 172 k/mm3 (150-375); Red Cell Distribution Width 15.6 % (11.5-14.5); White Blood Count 8.6 K/mm3 (4.5-10.0)
[2022-05-02 22:05] LABS: Hypochromasia 1+ (NORMAL); Macrocytosis 1+ (NORMAL); Platelet Estimate Adequate (Adequate); Stomatocytes 1+ (NORMAL)
[2022-05-02 22:06] LABS: Alanine Aminotransferase 12 U/L (6-50); Albumin Level 3.7 g/dL (3.5-5.1); Alkaline Phosphatase 153 U/L (38-126); Aspartate Amino Transferase 19 U/L (17-59); Bilirubin,Total 0.3 mg/dL (0.2-1.3); Blood Urea Nitrogen 26 mg/dL (9-20); Carbon Dioxide > 40 mmol/L (22-30); Chloride 92 mmol/L (98-107); Estimated CRCL calculation 65 ml/min; Estimated Glomerular Filt Rate > 60; Glucose 187 mg/dL (65-110); Magnesium 2.9 mg/dL (1.6-2.3); Prothrombin Time 12.7 Seconds (11.1-14.7); Sodium 139 mmol/L (137-145)
[2022-05-02 22:07] LABS: Partial Thromboplastin Time 30.7 SECONDS (22.3-36.8); Phenytoin Dilantin 8 ug/mL (10-20)
[2022-05-02 22:13] LABS: Add Urine Microscopic? YES; Appearance Urine Clear (Clear); Bilirubin Urine 1+ (Negative); Blood Urine Negative (Negative); Color Urine Yellow (Yellow); Glucose Urine UA Negative (Negative); Ketones Urine Negative (Negative); Leukocyte Esterase Ur Negative LEU/UL (Negative); Nitrate Urine Negative (Negative); Protein Urine Trace mg/dL (Negative); Specific Grav Ur >= 1.030 (1.001-1.035); Urobilinogen Urine 0.2 mg/dL (<2.0); pH Urine 5.5 (5.0-9.0)
[2022-05-02 22:17] LABS: Bacteria Urine Trace /hpf; Mucus Urine Rare /lpf; RBC Urine 0-2 /hpf (0-2); Squamous Epithelial Cell Urine Occasional /hpf (Few); WBC Urine 0-3 /hpf
[2022-05-02 22:17] LABS: NT Pro B Type Natriuretic Pept 149 pg/mL (5-100); Troponin I < 0.012 ng/mL (0.000-0.034)
[2022-05-02 22:38] LABS: Lactic Acid Reflex < 0.5 mmol/L (0.7-2.0)
--- NOTE | 2022-05-02 22:50 | ED.SOB ---
HPI - SOB/Dyspnea General Chief Complaint: Shortness of Breath/Dyspnea Stated Complaint: RESPIRATORY DISTRESS Source: patient, EMS, RN notes reviewed and old records reviewed Mode of arrival: EMS Limitations: clinical condition History of Present Illness HPI Narrative: This is a 71 year old male with history of COPD, CHF , chronic respiratory failure on 4 L NC who presents for evaluation of shortness of breath. He was diagnosed with covid 3 weeks ago. He states he developed shortness of breath yesterday. He has had constant diffuse pain across his chest since yesterday. EMS reports patient was 71 % on 4 L NC on their arrival. They placed patient on nonrebreather and gave him Decadron 10 mg, magnesium 2 grams and albuterol nebulizer. PAtient had improvement in his respiratory status. He denies worsening swelling in his legs. Pertinent past history: COPD and congestive heart failure Related Data Home Medications Medication Instructions Recorded Confirmed aspirin 81 mg tablet,delayed 81 mg PO DAILY 11/05/19 04/11/22 release atorvastatin 40 mg tablet 40 mg PO HS 06/22/21 05/03/22 clopidogrel 75 mg tablet 75 mg PO DAILY 06/22/21 04/11/22 fluoxetine 10 mg capsule 20 mg PO BID 06/22/21 05/03/22 hydrochlorothiazide 12.5 mg tablet 12.5 mg PO DAILY 06/22/21 04/11/22 lisinopril 20 mg tablet 20 mg PO DAILY 06/22/21 05/03/22 phenytoin sodium extended 100 mg 200 mg PO Q8H 06/22/21 05/03/22 capsule bicalutamide 50 mg tablet 50 mg PO DAILY 07/18/21 05/03/22 omeprazole 40 mg capsule,delayed 40 mg PO DAILY 07/18/21 05/03/22 release topiramate 25 mg tablet 25 mg PO DAILY 02/18/22 04/11/22 famotidine 20 mg tablet 20 mg PO HS 04/11/22 05/03/22 furosemide 40 mg tablet 40 mg PO DAILY 04/11/22 04/11/22 ipratropium bromide 0.02 % 0.5 mg inhalation Q6HRT PRN 04/11/22 04/11/22 solution for inhalation Shortness Of Breath Or Wheezing Allergies Allergy/AdvReac Type Severity Reaction Status Date / Time No Known Allergies Allergy Verified 05/03/22 03:49 [facility] Past Medical History Medical History Bronchiectasis Previously used a vibratory vest b.i.d. for 30 minutes. Chronic back pain Chronic obstructive pulmonary disease Chronic respiratory failure with hypoxia and hypercapnia 3 L with rest and 6 L with ambulation. BiPAP at nighttime, 16/6 with 4 L bleed in. Diastolic dysfunction Echocardiogram in November 06, 2019 showed mild increase in LV wall thickness, grossly normal LV wall motion, ejection fraction estimated > 70%, grade 1 diastolic dysfunction, and mild tricuspid valve regurgitation. History of CVA (cerebrovascular accident) Hyperlipidemia Hypertension Macrocytic anemia Obstructive sleep apnea Peripheral arterial disease Prostate cancer Status post radiation. On anti androgens. Secondary pulmonary hypertension Noted on echocardiogram 11/06/2019 with an estimated peak RVSP of 70 millimeters of mercury. Seizure disorder Surgical History Surgical History History of abdominal aortic aneurysm repair History of colonoscopy with polypectomy Diverticulosis, internal hemorrhoids, and benign colon and rectal polyps. History of esophagogastroduodenoscopy (02/2021) Esophageal ring and hiatal hernia. History of vascular surgery Stents to bilateral lower extremities. Family History Family History Sibling Diabetes mellitus Mother Heart disease Social History Social History Social History: Lives with his in [place]. They have 4 children. Smoker for 55 years. Two packs a day for 10 years, 1 pack thereafter. He quit for good approximately 4 years ago. No alcohol or illicit substance abuse. Surrogate decision maker: Jeanette Zavaleta, . Code status: No CPR, may consider intubation. Smoking
[2022-05-02 23:00] LABS: Alveolar/Arterial O2 Gradient 154.8 mmHg; Base Excess ABG 17.8 mEq/l (+/-2.0); Carboxyhemoglobin 1.1 % THb (0-2.0); Fractional Inspired Oxygen 60 %; HCO3 ABG 51.6 mEq/l (22.0-26.0); Methemoglobin ABG 0.3 %THb (0-1.5); Oxygen Content ABG 15.2 %vol (16.0-22.0); Oxygen Saturation ABG 95.8 % (95.0-100.0); Oxyhemoglobin 95.5 % THb (90.0-100.0); PO2 ABG 109.7 mmHg (80.0-100.0); PO2 FiO2 Ratio Arterial Blood 1.83 %; Reduced Hemoglobin 3.1 %THb (0-5.0); Total Hemoglobin 11.2 g/dL (12.0-18.0)
[2022-05-02 23:01] LABS: pH ABG 7.159 (7.350-7.450)
[2022-05-02 23:02] LABS: Device NON-INVASIVE VENT; Modified Allen's Test Unable to perform; PCO2 ABG 148.5 mmHg (35.0-45.0); Site Drawn RIGHT RADIAL
[2022-05-02 23:03] LABS: Non-Invasive Expiratory Pressure 6 CMH2O; Non-Invasive Inspiratory Pressure 12 CMH2O; Non-Invasive Vent Rate 20 /MIN
[2022-05-02] MEDS: SODIUM CHLORIDE 0.9% IV 1,000 ML 999 ML IV CONT (23:07)
[2022-05-03] VITALS (52 sets, daily range): BP systolic 117–152; BP diastolic 43–64; PULSE 64–94; RESP 12–30; TEMP 36.3–36.7; O2SAT 87–100; BMI 30.8
[2022-05-03 01:20] LABS: SARS-CoV-2 RNA PCR Negative
[2022-05-03] MEDS: IPRATROPIUM BR 0.02% INH SOLN 0.5 MG/2.5 ML VIAL (01:49)
[2022-05-03] MEDS: ALBUTEROL SULFATE NEB 2.5 MG/3 ML INH (01:49)
[2022-05-03 01:52] LABS: Alveolar/Arterial O2 Gradient 120.8 mmHg; Base Excess ABG 14.3 mEq/l (+/-2.0); Fractional Inspired Oxygen 50 %; HCO3 ABG 47.3 mEq/l (22.0-26.0); Oxygen Content ABG 14.7 %vol (16.0-22.0); Oxygen Saturation ABG 92.3 % (95.0-100.0); Oxyhemoglobin 93.3 % THb (90.0-100.0); PO2 ABG 85.5 mmHg (80.0-100.0); PO2 FiO2 Ratio Arterial Blood 1.71 %; Total Hemoglobin 11.1 g/dL (12.0-18.0)
[2022-05-03 01:53] LABS: Device NON-INVASIVE VENT; Modified Allen's Test Unable to perform; PCO2 ABG 133.5 mmHg (35.0-45.0); Site Drawn RIGHT RADIAL; pH ABG 7.167 (7.350-7.450)
[2022-05-03 01:54] LABS: Non-Invasive Inspiratory Pressure 16 CMH2O; Non-Invasive Vent Rate 20 /MIN
[2022-05-03 01:55] LABS: Non-Invasive Expiratory Pressure 8 CMH2O
--- NOTE | 2022-05-03 03:20 | PC.NURSE ---
This patient, Quentin Zavaleta, was admitted to Intensive Care Unit-5. Patient/family oriented to hospital policies and general routines including ID bracelet, bed and alarms, visiting hours, pain management, procedures, bathroom and other care routines, personal items, smoking policy, room service/diet, and visiting hours. Information on how to activate the Rapid Response Team has been discussed. Patient/Family are encouraged to report perceived risks to care and to ask questions if they do not understand what they are told or what they should do.
[2022-05-03] MEDS: methylPREDNISolone SOD SUCC 125 MG VIAL 60 MG IV PUSH ×2 (05:21→12:45)
[2022-05-03 05:25] LABS: Alveolar/Arterial O2 Gradient 154.3 mmHg; Base Excess ABG 6.8 mEq/l (+/-2.0); Fractional Inspired Oxygen 50 %; HCO3 ABG 37.5 mEq/l (22.0-26.0); Oxygen Content ABG 14.6 %vol (16.0-22.0); Oxygen Saturation ABG 94.6 % (95.0-100.0); PO2 ABG 92.2 mmHg (80.0-100.0); PO2 FiO2 Ratio Arterial Blood 1.84 %; Total Hemoglobin 10.8 g/dL (12.0-18.0)
[2022-05-03 05:27] LABS: pH ABG 7.201 (7.350-7.450)
[2022-05-03 05:28] LABS: Device NON-INVASIVE VENT; Modified Allen's Test Pass; PCO2 ABG 97.8 mmHg (35.0-45.0); Site Drawn RIGHT RADIAL
[2022-05-03 05:30] LABS: Non-Invasive Expiratory Pressure 10 CMH2O; Non-Invasive Inspiratory Pressure 18 CMH2O; Non-Invasive Vent Rate 22 /MIN
--- NOTE | 2022-05-03 08:06 | WPDCNINT ---
Assessment and Plan Assessment and plan (1) Acute and chronic respiratory failure with hypercapnia: Code(s): J96.22 - Acute and chronic respiratory failure with hypercapnia Status: Acute Assessment and Plan: Patient presented with acute shortness breath, O2 sats were in the 70s on 4 L is with EMS arrived at his house. Patient stated that he accuses BiPAP the previous night -initial ABG showed a pCO2 of 158 with adequate oxygenation on 100% non-rebreather -EMS did provide Decadron, magnesium and albuterol nebs with improvement in his breathing. -he was placed on BiPAP in the ED, this morning is ABGs is 7.20/97/92/37/94% on 50% FiO2. -05/02: Chest x-ray on admission: Slightly increased fine reticular and groundglass opacity mid and peripheral lungs, overlying coarse interstitial opacities -05/02: CTA on admission: No pulmonary embolism. ?Likely chronic scattered pneumonia most severe in the right lower lobe where there is associated bronchiectasis. Severe emphysema. -on examination patient has diminished air entry, no wheezing, will give additional IV Solu-Medrol -continue steroids, bronchodilators and BiPAP for now -will have pulmonology evaluate the patient (2) Community acquired pneumonia: Code(s): J18.9 - Pneumonia, unspecified organism Status: Acute Assessment and Plan: Chest x-ray shows slightly increased fine reticular and ground ground-glass opacities in the mid and peripheral lungs, overlying coarse interstitial opacities. -patient has been started on ceftriaxone and azithromycin (05/03) -urine and blood cultures have been obtained pending (3) Diastolic dysfunction: Code(s): I51.89 - Other ill-defined heart diseases Status: Chronic Assessment and Plan: 04/11/2022 echocardiogram showed an EF of 60-70%, 04/20/2022: Echo EF 65-70%, left ventricular diastolic function is normal left atrial chamber dimension is mildly enlarged (4) DVT prophylaxis: Code(s): Z29.9 - Encounter for prophylactic measures, unspecified Status: Acute Assessment and Plan: Will start Lovenox (5) Anemia: Code(s): D64.9 - Anemia, unspecified Status: Acute Assessment and Plan: Chronic macrocytic anemia, hemoglobin is stable at this time, will continue to monitor (6) Seizure disorder: Code(s): G40.909 - Epilepsy, unspecified, not intractable, without status epilepticus Status: Acute Assessment and Plan: Continue phenytoin (7) Obstructive sleep apnea: Code(s): G47.33 - Obstructive sleep apnea (adult) (pediatric) Status: Acute Assessment and Plan: continue BiPAP Plan Continue BiPAP Start antibiotics Pulmonary consult Continue bronchodilator Additional Plan DVT prophylaxis: Lovenox Stress ulcer prophylaxis: Protonix Nutrition: NPO till patient is on BiPAP Code status: Full code Critical care time spent: 49 minutes This dictation may have been done utilizing a voice recognition system. Attempts have been made to correct errors. However, there may be uncorrected grammatical, spelling, and recognition errors present. Due to a high probability of clinically significant, life threatening deterioration, the patient required my highest level of preparedness to intervene emergently and I personally spent this critical care time directly and personally managing the patient. This critical care time included obtaining a history; examining the patient; pulse oximetry; ordering and review of studies; arranging urgent treatment with development of a management plan; evaluation of patient's response to treatment; frequent reassessment; and discussions with other providers. It was exclusive of separately billable procedures and treating other patients and teaching time. Please see Assessment and Plan section and the rest of the note for further information on patient assessment and treatment Checking Department Supervisor Consult Note Consult date: 05/03/22
[2022-05-03] MEDS: ALBUTEROL SULFATE NEB 2.5 MG/3 ML INH 5 MG INHALATION ×3 (08:17→15:58)
[2022-05-03] MEDS: IPRATROPIUM BR 0.02% INH SOLN 0.5 MG/2.5 ML VIAL INHALATION ×5 (08:18→23:56)
[2022-05-03] MEDS: PANTOPRAZOLE SODIUM IV 40 MG VIAL IV PUSH ×2 (08:34→21:03)
[2022-05-03] MEDS: methylPREDNISolone SOD SUCC 125 MG VIAL IV PUSH (08:35)
--- NOTE | 2022-05-03 09:00 | PC.NURSE ---
ok with keeping patient NPO until patient able to tolerate Bipap off for at least five mimtues and Dr. Gonzalez has seen patient.
--- NOTE | 2022-05-03 09:10 | PM.IMHP ---
H&P: HPI History of Present Illness Date/Time: 05/03/22 09:10 Chief Complaint: This is a 71 year old male with history of COPD, CHF , chronic respiratory failure on 4 L NC related to the ER with shortness of breath that started last night. He was recently diagnosed with COVID about 3 weeks ago. He denies any chest pain or increased swelling in the legs. EMS was called and he was noted to be 71% on 4 L nasal cannula on their arrival. He was placed on non-rebreather and was given a dose of Decadron 10 mg magnesium and an albuterol nebulizer. Patient had improvement in his respiratory status he he was brought to the ER. His ABG showed severe respiratory acidosis and was placed on a BiPAP. He denies any worsening swelling in his legs recently. He is alert and oriented x3 over a BiPAP currently. He is admitted to the ICU for further evaluation and management Review of Systems Review of Systems: - CONSTITUTIONAL: Denies weight loss, fever and chills. - HEENT: Denies changes in vision and hearing - RESPIRATORY: Reports SOB and cough. - CV: Denies palpitations and CP. - GI: Denies abdominal pain, nausea, vomiting and diarrhea. - : Denies dysuria and urinary frequency. - MSK: Denies myalgia and joint pain. - SKIN: Denies rash and pruritus. - NEUROLOGICAL: Denies headache and syncope. - PSYCHIATRIC: Denies recent changes in mood. Denies anxiety and depression. FORMERLY [facility] Past Medical History Medical History Bronchiectasis Previously used a vibratory vest b.i.d. for 30 minutes. Chronic back pain Chronic obstructive pulmonary disease Chronic respiratory failure with hypoxia and hypercapnia 3 L with rest and 6 L with ambulation. BiPAP at nighttime, 16/6 with 4 L bleed in. Diastolic dysfunction Echocardiogram in November 06, 2019 showed mild increase in LV wall thickness, grossly normal LV wall motion, ejection fraction estimated > 70%, grade 1 diastolic dysfunction, and mild tricuspid valve regurgitation. History of CVA (cerebrovascular accident) Hyperlipidemia Hypertension Macrocytic anemia Obstructive sleep apnea Peripheral arterial disease Prostate cancer Status post radiation. On anti androgens. Secondary pulmonary hypertension Noted on echocardiogram 11/06/2019 with an estimated peak RVSP of 70 millimeters of mercury. Seizure disorder Surgical History Surgical History History of abdominal aortic aneurysm repair History of colonoscopy with polypectomy Diverticulosis, internal hemorrhoids, and benign colon and rectal polyps. History of esophagogastroduodenoscopy (02/2021) Esophageal ring and hiatal hernia. History of vascular surgery Stents to bilateral lower extremities. Family History Family History Sibling Diabetes mellitus Mother Heart disease Social History Social History Social History: Lives with his in [place]. They have 4 children. Smoker for 55 years. Two packs a day for 10 years, 1 pack thereafter. He quit for good approximately 4 years ago. No alcohol or illicit substance abuse. Surrogate decision maker: Jeanette Zavaleta, . Code status: No CPR, may consider intubation. Smoking status: Former smoker Alcohol intake: unknown Substance use: unknown Spiritual care concerns: No Agree to blood products: Yes Meds Home Medications and Allergies Home Medications Medication Instructions Recorded Confirmed Type aspirin 81 mg tablet,delayed 81 mg PO DAILY 11/05/19 04/11/22 History release atorvastatin 40 mg tablet 40 mg PO HS 06/22/21 05/03/22 History clopidogrel 75 mg tablet 75 mg PO DAILY 06/22/21 04/11/22 History fluoxetine 10 mg capsule 20 mg PO BID 06/22/21 05/03/22 History hydrochlorothiazide 12.5 mg tablet 12.5 mg PO DAILY
[2022-05-03 09:12] LABS: Glucose Point of Care 86 mg/dl (65-105)
[2022-05-03] MEDS: ENOXAPARIN 40 MG/0.4 ML SYRINGE SUB-Q (09:43)
[2022-05-03 11:39] LABS: Alveolar/Arterial O2 Gradient 128.2 mmHg; Base Excess ABG 13.4 mEq/l (+/-2.0); Fractional Inspired Oxygen 45 %; HCO3 ABG 44.3 mEq/l (22.0-26.0); Oxygen Content ABG 14.1 %vol (16.0-22.0); Oxygen Saturation ABG 90.2 % (95.0-100.0); Oxyhemoglobin 91.6 % THb (90.0-100.0); PO2 ABG 72.1 mmHg (80.0-100.0); Total Hemoglobin 10.9 g/dL (12.0-18.0)
[2022-05-03 11:41] LABS: pH ABG 7.239 (7.350-7.450)
[2022-05-03 11:42] LABS: Site Drawn LEFT BRACHIAL
[2022-05-03 11:43] LABS: Device NON-INVASIVE VENT; Non-Invasive Expiratory Pressure 10 CMH2O; Non-Invasive Inspiratory Pressure 18 CMH2O; Non-Invasive Vent Rate 22 /MIN
[2022-05-03 12:09] LABS: Glucose Point of Care 144 mg/dl (65-105)
--- NOTE | 2022-05-03 14:37 | PM.CNPUL ---
Assessment and Plan Assessment and plan (1) Acute on chronic respiratory failure with hypoxia and hypercapnia: Code(s): J96.21 - Acute and chronic respiratory failure with hypoxia; J96.22 - Acute and chronic respiratory failure with hypercapnia Status: Acute Assessment and Plan: Patient is followed in the Pulmonary Clinic for COPD and FERNANDO and was last seen on 04/04/2022. GOLD grade 4 group D COPD with very severe obstructive abnormality with no bronchodilator response, air trapping and a moderately decreased DLCO when adjusted for alveolar volume, On BiPAP 16/6 plus 6 L bleed in (of note he did nt tolerate trelegy or Astral machines), on DuoNebs and nebulized budesonide, azithromycin 500 TIW, BiPAP 16/6 (started 08/16/2021 and previously did not tolerate trilogy or astral ventilator modes).? ?He required 4 to 5 L with rest and 6 L with activity. His M MRC was grade 4 he could walk 0.5 to 1 block and stopped for shortness of breath and his CAT score was 28.? He was unwilling to receive his COVID vaccine despite my recommendations. He previously was admitted in June 2021, July 2021 and August 2021 for COPD with respiratory failure then started on NIV. Admitted 02/18-03/01 with COVID pneumonia. Admitted 04/11/2022 through 04/16/2022 for COVID pneumonia. patient currently admitted with worsening shortness of breath, and acute on chronic hypoxemic and hypercarbic respiratory failure with no leukocytosis, afebrile and new infiltrates in his right lower lobe. I suspect his worsening respiratory status currently is related to his right lower lobe pneumonia. Patient has a history of Pseudomonas in his sputum and has been recently admitted to the hospital on 02/18/2022 and 04/11/2022. I would treat him for resistant organisms and will change him to vancomycin, cefepime and Levaquin. Cultures are pending. I will send a sputum culture as well as a nasal swab for extended respiratory viral pathogen panel. Continue BiPAP support at this time. Currently is on 25/07 with 45% FiO2 and saturations 96%. The patient is stating he is breathing much better and may be able to tolerate brief periods off the BiPAP now. Patient should wear this BiPAP overnight. will follow with you. (2) COPD exacerbation: Code(s): J44.1 - Chronic obstructive pulmonary disease with (acute) exacerbation Status: Acute Assessment and Plan: Patient is currently being treated for COPD exacerbation with solumedrol 60 mg IV q.6 hours, albuterol 5 mg nebs q.4 hours, ipratropium 0.5 nebs q.4 hours. I would decrease his Solu-Medrol to 40 mg IV q.6 and decreases albuterol to 2.5 mg nebs q.4 hours and continue the ipratropium. (3) Obstructive sleep apnea: Code(s): G47.33 - Obstructive sleep apnea (adult) (pediatric) Status: Acute Assessment and Plan: I have a download from [employer] from 01/01/2022 through 03/31/2022. ?The patient is on BiPAP rate of 12, inspiratory pressure 16, expiratory pressure 6.? Usage at greater than or equal to 4 hours is 67 of 90 days or 74%.? Average usage on days used is 6 hours and 40 minutes.? His AHI is 0.6, apnea index is 0.2, hypopnea index is 0.4.? Median leak is 0.0 liters/minute, 95th percentile leak is 3.20 liters/minute. ?His median tidal volume is 420, his median respiratory rate is 24. ?His median minute ventilation is 10.1. ?There was no usage between approximately February 17 and February 28?. which corresponds to the above admission.? Otherwise his compliance was near perfect. ?I interpret this download as adequate compliance, adequate pressures and minimal leak. Continue BiPAP for now. Will obtain more recent download from [employer] on 05/04/2022 History of Present Illness History of Present Illness Consult date: 05/03/22 Chief complaint: acute on chronic respiratory failure w/hypercapnea Narrative: 05/03/2022: This is new Pulmonary consult for acute on chronic hypercarbic and
--- NOTE | 2022-05-03 16:20 | PC.NURSE ---
Dr. Gonzalez to bedside.
[2022-05-03] MEDS: methylPREDNISolone SOD SUCC 40 MG VIAL IV PUSH (17:19)
[2022-05-03 17:39] LABS: Glucose Point of Care 144 mg/dl (65-105)
--- NOTE | 2022-05-03 18:00 | PC.NURSE ---
Patient placed on 10L HiFlo NC for dinner.
--- NOTE | 2022-05-03 18:05 | PC.NURSE ---
Patient angry because he only received one packet of sugar. Stated Where the fuck is my five packets of sugar? Reminded patient that abusive language was not tolerated at this facility and we were monitoring his blood sugar at this time. If his blood sugar remained stable tonight, medical staff will address his diet at that point.
[2022-05-03] MEDS: ALBUTEROL SULFATE NEB 2.5 MG/3 ML INH INHALATION ×2 (19:58→23:56)
[2022-05-03 21:14] LABS: Glucose Point of Care 197 mg/dl (65-105)
[2022-05-03 22:30] LABS: Phenytoin Dilantin 5 ug/mL (10-20)
[2022-05-03] MEDS: PHENYTOIN SODIUM INJ (*BKC) 1,000 MG in SODIUM CHLORIDE 0.9% IV 100 ML 180 MG IVPB (23:08)
[2022-05-04] VITALS (28 sets, daily range): BP systolic 133–158; BP diastolic 62–85; PULSE 66–87; RESP 16–27; TEMP 36.4–36.9; O2SAT 93–100
[2022-05-04] MEDS: methylPREDNISolone SOD SUCC 40 MG VIAL IV PUSH ×2 (00:11→05:02)
[2022-05-04] MEDS: ALBUTEROL SULFATE NEB 2.5 MG/3 ML INH INHALATION ×5 (04:12→20:20)
[2022-05-04] MEDS: IPRATROPIUM BR 0.02% INH SOLN 0.5 MG/2.5 ML VIAL INHALATION ×5 (04:12→20:20)
[2022-05-04 04:38] LABS: Alveolar/Arterial O2 Gradient 123.5 mmHg; Base Excess ABG 13.6 mEq/l (+/-2.0); Carboxyhemoglobin 0.3 % THb (0-2.0); Fractional Inspired Oxygen 40 %; Methemoglobin ABG 0.4 %THb (0-1.5); Oxygen Content ABG 12.7 %vol (16.0-22.0); Oxygen Saturation ABG 95.1 % (95.0-100.0); Oxyhemoglobin 94.1 % THb (90.0-100.0); PO2 ABG 80.1 mmHg (80.0-100.0); Reduced Hemoglobin 5.2 %THb (0-5.0); Total Hemoglobin 9.5 g/dL (12.0-18.0); pH ABG 7.379 (7.350-7.450)
[2022-05-04 04:41] LABS: Device NON-INVASIVE VENT; Modified Allen's Test Pass; Site Drawn RIGHT RADIAL
[2022-05-04 04:42] LABS: Non-Invasive Expiratory Pressure 10 CMH2O; Non-Invasive Inspiratory Pressure 18 CMH2O; Non-Invasive Vent Rate 22 /MIN
[2022-05-04 04:44] LABS: Basophils Percent Auto 0.2 % (0.2-1.2); Eosinophils Percent Auto 0.3 % (0-4.4); Hematocrit 28.8 % (42.0-52.0); Hemoglobin 8.5 g/dL (14.0-18.0); Immature Granulocyte Absolute 0.03 K/mm3 (0.00-0.031); Immature Granulocyte Percent A 0.5 % (0-0.5); Lymphocytes Absolute Auto 0.62 K/mm3 (0.9-3.2); Lymphocytes Percent Auto 10.6 % (18.3-44.2); Mean Corpuscular HGB Conc 29.5 g/dl (32-36); Mean Corpuscular Hemoglobin 29.7 pg (26-34); Mean Corpuscular Volume 100.7 fl (80-100); Monocytes Absolute Auto 0.6 K/mm3 (0.1-0.6); Monocytes Percent Auto 10.6 % (2.6-8.5); Neutrophils Absolute Auto 4.6 K/mm3 (1.3-6.7); Neutrophils Percent Auto 77.8 % (45.5-73.1); Platelet Count Result 152 k/mm3 (150-375); Red Blood Count 2.86 M/mm3 (4.6-6.20); Red Cell Distribution Width 15.4 % (11.5-14.5); White Blood Count 5.9 K/mm3 (4.5-10.0)
[2022-05-04 05:15] LABS: Alanine Aminotransferase 10 U/L (6-50); Albumin Level 3.3 g/dL (3.5-5.1); Alkaline Phosphatase 113 U/L (38-126); Aspartate Amino Transferase 16 U/L (17-59); Bilirubin,Total 0.2 mg/dL (0.2-1.3); Blood Urea Nitrogen 26 mg/dL (9-20); Calcium 8.1 mg/dL (8.4-10.2); Carbon Dioxide > 40 mmol/L (22-30); Chloride 92 mmol/L (98-107); Estimated CRCL calculation 69 ml/min; Estimated Glomerular Filt Rate > 60; Glucose 102 mg/dL (65-110); Magnesium 2.3 mg/dL (1.6-2.3); Phosphorus 3.3 mg/dL (2.5-4.5); Potassium 4.8 mmol/L (3.4-5.0); Sodium 138 mmol/L (137-145)
[2022-05-04] MEDS: PHENYTOIN SODIUM INJ 100 MG/2 ML VIAL (*BKC) 200 MG IV PUSH ×2 (06:00→16:43)
--- NOTE | 2022-05-04 09:30 | PM.PNPUL ---
Progress Note: A&P Assessment and Plan (1) Acute on chronic respiratory failure with hypoxia and hypercapnia: Code(s): J96.21 - Acute and chronic respiratory failure with hypoxia; J96.22 - Acute and chronic respiratory failure with hypercapnia Status: Acute Assessment and Plan: Patient is followed in the Pulmonary Clinic for COPD and FERNANDO and was last seen on 04/04/2022. GOLD grade 4 group D COPD with very severe obstructive abnormality with no bronchodilator response, air trapping and a moderately decreased DLCO when adjusted for alveolar volume, On BiPAP 16/6 plus 6 L bleed in (of note he did nt tolerate trelegy or Astral machines), on DuoNebs and nebulized budesonide, azithromycin 500 TIW, BiPAP 16/6 (started 08/16/2021 and previously did not tolerate trilogy or astral ventilator modes).? ?He required 4 to 5 L with rest and 6 L with activity. His M MRC was grade 4 he could walk 0.5 to 1 block and stopped for shortness of breath and his CAT score was 28.? He was unwilling to receive his COVID vaccine despite my recommendations. He previously was admitted in June 2021, July 2021 and August 2021 for COPD with respiratory failure then started on NIV. Admitted 02/18-03/01 with COVID pneumonia. Admitted 04/11/2022 through 04/16/2022 for COVID pneumonia. 05/03 patient currently admitted with worsening shortness of breath, and acute on chronic hypoxemic and hypercarbic respiratory failure with no leukocytosis, afebrile and new infiltrates in his right lower lobe. I suspect his worsening respiratory status currently is related to his right lower lobe pneumonia. Patient has a history of Pseudomonas in his sputum and has been recently admitted to the hospital on 02/18/2022 and 04/11/2022. I would treat him for resistant organisms and will change him to vancomycin, cefepime and Levaquin. Cultures are pending. I will send a sputum culture as well as a nasal swab for extended respiratory viral pathogen panel. Continue BiPAP support at this time. Currently is on 25/07 with 45% FiO2 and saturations 96%. The patient is stating he is breathing much better and may be able to tolerate brief periods off the BiPAP now. Patient should wear this BiPAP overnight. 05/04 Patient but has been on continuous BiPAP for the last 32 hours. He is awake and alert and says that he is feeling better. He is currently on BiPAP rate of 22 pressures 18/10 with tidal volumes 450-500 on 40% FiO2. His blood gas this morning is improved at 7.38/70 1. Can try patient off BiPAP as tolerated. Attempt out of bed if possible. will follow with you. (2) COPD exacerbation: Code(s): J44.1 - Chronic obstructive pulmonary disease with (acute) exacerbation Status: Acute Assessment and Plan: 05/03 Patient is currently being treated for COPD exacerbation with solumedrol 60 mg IV q.6 hours, albuterol 5 mg nebs q.4 hours, ipratropium 0.5 nebs q.4 hours. I would decrease his Solu-Medrol to 40 mg IV q.6 and decreases albuterol to 2.5 mg nebs q.4 hours and continue the ipratropium. 05/04 He has no wheezing. His white blood cell count is 5.9. His chest x-ray is unchanged bilateral lung disease more focal in the right lung base. Continue nebulizers. I will decrease his Solu-Medrol from 40 Q 6-20 q.6 today. For his more focal right lower lobe infiltrates with a history of Pseudomonas in his sputum and recent hospitalizations will continue vancomycin, cefepime and Levaquin (started 05/03). COVID RT PCR study negative. 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 (3) Obstructive sleep apnea: Code(s): G47.33 - Obstructive sleep apnea (adult) (pediatric) Status: Acute Assessment and Plan: At his office visit on 04/04 I had this download. I have a download from [employer] from 01/01/2022 through 03/31/2022. ?The patient is on BiPAP rate of 12, inspiratory pressure 16, expiratory pressure 6.? Usage at gr
[2022-05-04] MEDS: ENOXAPARIN 40 MG/0.4 ML SYRINGE SUB-Q (10:00)
[2022-05-04] MEDS: PANTOPRAZOLE SODIUM IV 40 MG VIAL IV PUSH ×2 (10:01→20:37)
--- NOTE | 2022-05-04 10:54 | WPDINTPN ---
Progress Note: A&P Assessment and Plan (1) Acute and chronic respiratory failure with hypercapnia: Code(s): J96.22 - Acute and chronic respiratory failure with hypercapnia Status: Acute Assessment and Plan: Patient presented with acute shortness breath, O2 sats were in the 70s on 4 L is with EMS arrived at his house. Patient stated that he accuses BiPAP the previous night -initial ABG showed a pCO2 of 158 with adequate oxygenation on 100% non-rebreather -EMS did provide Decadron, magnesium and albuterol nebs with improvement in his breathing. -he was placed on BiPAP in the ED, this morning is ABGs is 7.20/97/92/37/94% on 50% FiO2. -05/04: Chest x-ray: Unchanged bilateral lung disease, greatest at the right lung base which could represent atelectasis/scarring, pulmonary edema or pneumonia superimposed over emphysema and bronchiectatic changes in the right lower lung. -05/02: CTA on admission: No pulmonary embolism. ?Likely chronic scattered pneumonia most severe in the right lower lobe where there is associated bronchiectasis. Severe emphysema. -patient remains on BiPAP 18 /, 40% FiO2, backup rate of 22. -ABGs this morning 7.37/71/80/41/90 5% on 40% FiO2. -will transition patient from BiPAP to nasal cannula, he uses 5-6 L of oxygen at home -wean Solu-Medrol, continue bronchodilators -Appreciate pulmonology evaluation and recommendation (2) Community acquired pneumonia: Code(s): J18.9 - Pneumonia, unspecified organism Status: Acute Assessment and Plan: Chest x-ray shows slightly increased fine reticular and ground ground-glass opacities in the mid and peripheral lungs, overlying coarse interstitial opacities. -Pulmonology switched patient to cefepime, Levaquin, vancomycin on 05/03/2022 -05/03/2022 urine cultures are negative -05/02/2022 blood cultures have negative x2 so far (3) Diastolic dysfunction: Code(s): I51.89 - Other ill-defined heart diseases Status: Chronic Assessment and Plan: 04/11/2022 echocardiogram showed an EF of 60-70%, 04/20/2022: Echo EF 65-70%, left ventricular diastolic function is normal left atrial chamber dimension is mildly enlarged (4) DVT prophylaxis: Code(s): Z29.9 - Encounter for prophylactic measures, unspecified Status: Acute Assessment and Plan: Continue Lovenox (5) Anemia: Code(s): D64.9 - Anemia, unspecified Status: Acute Assessment and Plan: Chronic macrocytic anemia, hemoglobin is stable at this time, will continue to monitor (6) Seizure disorder: Code(s): G40.909 - Epilepsy, unspecified, not intractable, without status epilepticus Status: Acute Assessment and Plan: Continue phenytoin (7) Obstructive sleep apnea: Code(s): G47.33 - Obstructive sleep apnea (adult) (pediatric) Status: Acute Assessment and Plan: BiPAP at night Plan Will place patient on nasal cannula with intermittent BiPAP as needed Start antibiotics continue antibiotic Continue bronchodilator Wean steroids Additional Plan DVT prophylaxis: Lovenox Stress ulcer prophylaxis: Protonix Nutrition: Will start p.o. diet Code status: Full code Critical care time spent: 34 minutes This dictation may have been done utilizing a voice recognition system. Attempts have been made to correct errors. However, there may be uncorrected grammatical, spelling, and recognition errors present. Due to a high probability of clinically significant, life threatening deterioration, the patient required my highest level of preparedness to intervene emergently and I personally spent this critical care time directly and personally managing the patient. This critical care time included obtaining a history; examining the patient; pulse oximetry; ordering and review of studies; arranging urgent treatment with development of a management plan; evaluation of patient's response to treatment; frequent reassessment; and discu
[2022-05-04] MEDS: methylPREDNISolone SOD SUCC 40 MG VIAL 20 MG IV PUSH ×3 (12:40→23:53)
[2022-05-04 12:46] LABS: Glucose Point of Care 105 mg/dl (65-105)
[2022-05-04 17:06] LABS: Glucose Point of Care 84 mg/dl (65-105)
--- NOTE | 2022-05-04 17:09 | PM.IMPN ---
Progress Note: A&P Assessment and Plan (1) Acute and chronic respiratory failure with hypercapnia: Code(s): J96.22 - Acute and chronic respiratory failure with hypercapnia Status: Acute Assessment and Plan: Sudden-onset shortness of breath. Oxygen saturation in 70s on 4 L nasal cannula. PCO2 158 on arrival Placed on BiPAP in the ED improving ABG Chest x-ray with slightly increased fine reticular and ground-glass opacity mid and peripheral lungs overlying coarse interstitial opacities. CTA with no PE likely chronic scattered pneumonia most severe in the right lower lobe where there is associated bronchiectasis. Severe emphysema On steroid bronchodilators and BiPAP Pulmonary consultation ICU on board. BiPAP tapered off ABG improved Pulmonary following. (2) Community acquired pneumonia: Code(s): J18.9 - Pneumonia, unspecified organism Status: Acute Assessment and Plan: Chest x-ray shows slightly increased fine reticular and ground ground-glass opacities in the mid and peripheral lungs, overlying coarse interstitial opacities. -patient has been started on ceftriaxone and azithromycin (05/03) -urine and blood cultures have been obtained pending (3) Diastolic dysfunction: Code(s): I51.89 - Other ill-defined heart diseases Status: Chronic Assessment and Plan: 04/11/2022 echocardiogram showed an EF of 60-70%, 04/20/2022: Echo EF 65-70%, left ventricular diastolic function is normal left atrial chamber dimension is mildly enlarged Not in exacerbation (4) DVT prophylaxis: Code(s): Z29.9 - Encounter for prophylactic measures, unspecified Status: Acute Assessment and Plan: Lovenox (5) Anemia: Code(s): D64.9 - Anemia, unspecified Status: Acute Assessment and Plan: Chronic macrocytic anemia, hemoglobin is stable at this time, will continue to monitor (6) Seizure disorder: Code(s): G40.909 - Epilepsy, unspecified, not intractable, without status epilepticus Status: Acute Assessment and Plan: Continue phenytoin (7) Obstructive sleep apnea: Code(s): G47.33 - Obstructive sleep apnea (adult) (pediatric) Status: Acute Assessment and Plan: continue BiPAP Plan Nasal cannula BiPAP intermittently as needed and at bedtime Subjective Date/time seen: 05/04/22 17:09 Interval history: HPI:This is a 71 year old male with history of COPD, CHF , chronic respiratory failure on 4 L NC related to the ER with shortness of breath that started last night.? He was recently diagnosed with COVID about 3 weeks ago.? He denies any chest pain or increased swelling in the legs.? EMS was called and he was noted to be 71% on 4 L nasal cannula on their arrival.? He was placed on non-rebreather and was given a dose of Decadron 10 mg magnesium and an albuterol nebulizer.? Patient had improvement in his respiratory status he he was brought to the ER.? His ABG showed severe respiratory acidosis and was placed on a BiPAP.? He denies any worsening swelling in his legs recently.? He is alert and oriented x3 over a BiPAP currently.? He is admitted to the ICU for further evaluation and managementning were 7.37/71/80/41/95% on 40% FiO2. Patient is awake, alert, follows simple commands and answers to questions. Denies any chest pain, abdominal pain, nausea, vomiting, back pain. Urine output has been adequate, WBC count is normal. Creatinine is 1.0 05/04/2022 patient was on BiPAP overnight removed this a.m. he sees improved. Denies any new complaints feeling better. Review of Systems Review of Systems: All systems reviewed & are unremarkable except as noted in HPI and below Exam Narrative: General: Patient on Nasal cannula, lying comfortably in bed, no acute distress HEENT: Pupils equal and reactive, sclera is clear Neck: Supple, no lymphadenopathy Respiratory: Diminished breath sounds, no wheezing not in acute distres
[2022-05-04] MEDS: ATORVASTATIN 40 MG TABLET PO (20:37)
[2022-05-04 20:45] LABS: Glucose Point of Care 112 mg/dl (65-105)
[2022-05-04] MEDS: PHENYTOIN SODIUM 100 MG EXTENDED RELEASE CAP 200 MG PO (21:38)
[2022-05-05] VITALS (33 sets, daily range): BP systolic 130–157; BP diastolic 59–75; PULSE 59–97; RESP 16–27; TEMP 36.3–36.7; O2SAT 86–100
[2022-05-05] MEDS: IPRATROPIUM BR 0.02% INH SOLN 0.5 MG/2.5 ML VIAL INHALATION ×6 (01:23→20:29)
[2022-05-05] MEDS: ALBUTEROL SULFATE NEB 2.5 MG/3 ML INH INHALATION ×6 (01:23→20:29)
[2022-05-05 04:09] LABS: Basophils Percent Auto 0.3 % (0.2-1.2); Eosinophils Absolute Auto 0.1 K/mm3 (0-0.3); Eosinophils Percent Auto 2.3 % (0-4.4); Hematocrit 31.3 % (42.0-52.0); Hemoglobin 9.1 g/dL (14.0-18.0); Immature Granulocyte Absolute 0.03 K/mm3 (0.00-0.031); Immature Granulocyte Percent A 0.5 % (0-0.5); Lymphocytes Absolute Auto 0.52 K/mm3 (0.9-3.2); Lymphocytes Percent Auto 8.6 % (18.3-44.2); Mean Corpuscular HGB Conc 29.1 g/dl (32-36); Mean Corpuscular Hemoglobin 29.5 pg (26-34); Mean Corpuscular Volume 101.6 fl (80-100); Mean Platelet Volume 9.8 fl (7.4-10.4); Monocytes Absolute Auto 0.5 K/mm3 (0.1-0.6); Monocytes Percent Auto 8.2 % (2.6-8.5); Neutrophils Absolute Auto 4.9 K/mm3 (1.3-6.7); Neutrophils Percent Auto 80.1 % (45.5-73.1); Platelet Count Result 143 k/mm3 (150-375); Red Blood Count 3.08 M/mm3 (4.6-6.20); Red Cell Distribution Width 15.5 % (11.5-14.5); White Blood Count 6.1 K/mm3 (4.5-10.0)
[2022-05-05 04:34] LABS: Alanine Aminotransferase 13 U/L (6-50); Albumin Level 3.3 g/dL (3.5-5.1); Alkaline Phosphatase 119 U/L (38-126); Aspartate Amino Transferase 21 U/L (17-59); Bilirubin,Total 0.2 mg/dL (0.2-1.3); Blood Urea Nitrogen 27 mg/dL (9-20); Calcium 8.1 mg/dL (8.4-10.2); Carbon Dioxide > 40 mmol/L (22-30); Chloride 91 mmol/L (98-107); Estimated CRCL calculation 65 ml/min; Estimated Glomerular Filt Rate > 60; Glucose 175 mg/dL (65-110); Magnesium 2.1 mg/dL (1.6-2.3); Potassium 5.1 mmol/L (3.4-5.0); Sodium 137 mmol/L (137-145)
[2022-05-05] MEDS: methylPREDNISolone SOD SUCC 40 MG VIAL 20 MG IV PUSH (04:57)
[2022-05-05] MEDS: PHENYTOIN SODIUM 100 MG EXTENDED RELEASE CAP 200 MG PO ×3 (05:23→21:08)
[2022-05-05] MEDS: ENOXAPARIN 40 MG/0.4 ML SYRINGE SUB-Q (08:49)
[2022-05-05] MEDS: PANTOPRAZOLE SODIUM IV 40 MG VIAL IV PUSH ×2 (08:49→21:08)
[2022-05-05 08:55] LABS: Glucose Point of Care 141 mg/dl (65-105)
[2022-05-05] MEDS: SODIUM ZIRCONIUM CYCLOSILICATE 10 GM POWD.PACK PO (09:10)
--- NOTE | 2022-05-05 09:14 | WPDINTPN ---
Progress Note: A&P Assessment and Plan (1) Acute and chronic respiratory failure with hypercapnia: Code(s): J96.22 - Acute and chronic respiratory failure with hypercapnia Status: Acute Assessment and Plan: Patient presented with acute shortness breath, O2 sats were in the 70s on 4 L is with EMS arrived at his house. Patient stated that he accuses BiPAP the previous night Initial ABG showed a pCO2 of 158 with adequate oxygenation on 100% non-rebreather -05/04: Chest x-ray: Unchanged bilateral lung disease, greatest at the right lung base which could represent atelectasis/scarring, pulmonary edema or pneumonia superimposed over emphysema and bronchiectatic changes in the right lower lung. -05/02: CTA on admission: No pulmonary embolism. ?Likely chronic scattered pneumonia most severe in the right lower lobe where there is associated bronchiectasis. Severe emphysema. -continue BiPAP p.r.n. during the day and at night -wean down oxygen to maintain sat of 90-92% -change Solu-Medrol to p.o. prednisone - continue bronchodilators -discussed with Dr. Gonzalez from Pulmonary -continue antibiotics as below (2) Community acquired pneumonia: Code(s): J18.9 - Pneumonia, unspecified organism Status: Acute Assessment and Plan: Chest x-ray shows slightly increased fine reticular and ground ground-glass opacities in the mid and peripheral lungs, overlying coarse interstitial opacities. -Pulmonology switched patient to cefepime, Levaquin, vancomycin on 05/03/2022 which will be continued for now -05/03/2022 urine cultures are negative -05/02/2022 blood cultures have negative x2 so far (3) Diastolic dysfunction: Code(s): I51.89 - Other ill-defined heart diseases Status: Chronic Assessment and Plan: 04/11/2022 echocardiogram showed an EF of 60-70%, 04/20/2022: Echo EF 65-70%, left ventricular diastolic function is normal left atrial chamber dimension is mildly enlarged (4) DVT prophylaxis: Code(s): Z29.9 - Encounter for prophylactic measures, unspecified Status: Acute Assessment and Plan: Continue Lovenox (5) Anemia: Code(s): D64.9 - Anemia, unspecified Status: Acute Assessment and Plan: Chronic macrocytic anemia, hemoglobin is stable at this time, will continue to monitor (6) Seizure disorder: Code(s): G40.909 - Epilepsy, unspecified, not intractable, without status epilepticus Status: Acute Assessment and Plan: Continue phenytoin (7) Obstructive sleep apnea: Code(s): G47.33 - Obstructive sleep apnea (adult) (pediatric) Status: Acute Assessment and Plan: BiPAP at night (8) Hyperkalemia: Code(s): E87.5 - Hyperkalemia Status: Acute Assessment and Plan: Slightly elevated potassium at 5.1 with normal creatinine. Could be secondary to respiratory acidosis Will give 1 dose of Lokelma Monitor Additional Plan DVT prophylaxis: Lovenox Stress ulcer prophylaxis: Protonix Nutrition: p.o. diet Code status: Full code PT OT, discontinue Medel catheter, up in chair, incentive spirometry Subjective Date/time seen: 05/05/22 09:14 Hospitalist inpatient progress note Patient wore BiPAP at night. He states that he is feeling better and breathing is much better as compared to since he came in. He denies any shortness of breath at this time. He slept well. He does have some cough which is mostly dry. He would like to get out of bed today and wants his Medel to be removed. All other systems were reviewed and were negative He is afebrile and his other vital signs stable urine output adequate Interval history: HPI:This is a 71 year old male with history of COPD, CHF , chronic respiratory failure on 4 L NC related admitted with respiratory failure Review of Systems Review of Systems: All systems reviewed & are unremarkable except as noted in HPI and below Exam Narrative: General: Patien
--- NOTE | 2022-05-05 10:17 | PM.PNPUL ---
Progress Note: A&P Assessment and Plan (1) Acute on chronic respiratory failure with hypoxia and hypercapnia: Code(s): J96.21 - Acute and chronic respiratory failure with hypoxia; J96.22 - Acute and chronic respiratory failure with hypercapnia Status: Acute Assessment and Plan: Patient is followed in the Pulmonary Clinic for COPD and FERNANDO and was last seen on 04/04/2022. GOLD grade 4 group D COPD with very severe obstructive abnormality with no bronchodilator response, air trapping and a moderately decreased DLCO when adjusted for alveolar volume, On BiPAP 16/6 plus 6 L bleed in (of note he did nt tolerate trelegy or Astral machines), on DuoNebs and nebulized budesonide, azithromycin 500 TIW, BiPAP 16/6 (started 08/16/2021 and previously did not tolerate trilogy or astral ventilator modes).? ?He required 4 to 5 L with rest and 6 L with activity. His M MRC was grade 4 he could walk 0.5 to 1 block and stopped for shortness of breath and his CAT score was 28.? He was unwilling to receive his COVID vaccine despite my recommendations. He previously was admitted in June 2021, July 2021 and August 2021 for COPD with respiratory failure then started on NIV. Admitted 02/18-03/01 with COVID pneumonia. Admitted 04/11/2022 through 04/16/2022 for COVID pneumonia. 05/03 patient currently admitted with worsening shortness of breath, and acute on chronic hypoxemic and hypercarbic respiratory failure with no leukocytosis, afebrile and new infiltrates in his right lower lobe. I suspect his worsening respiratory status currently is related to his right lower lobe pneumonia. Patient has a history of Pseudomonas in his sputum and has been recently admitted to the hospital on 02/18/2022 and 04/11/2022. Continue BiPAP support at this time. Currently is on 25/07 with 45% FiO2 and saturations 96%. The patient is stating he is breathing much better and may be able to tolerate brief periods off the BiPAP now. Patient should wear this BiPAP overnight. 05/04 Patient but has been on continuous BiPAP for the last 32 hours. He is awake and alert and says that he is feeling better. He is currently on BiPAP rate of 22 pressures 25/07 with tidal volumes 450-500 on 40% FiO2. His blood gas this morning is improved at 7.38/70 . Can try patient off BiPAP as tolerated. Attempt out of bed if possible. Tolerated off BiPAP for 11 hours later in the day. 05/05 Patient wore BiPAP overnight and currently he is off the BiPAP on 8 L nasal cannula saturations 99%. He states he is breathing better than when he arrived to the hospital. His white blood cell count is 6.1. His creatinine is 1.1. He is afebrile and has no wheezes. Discussed with Dr. King. Will follow with you. (2) COPD exacerbation: Code(s): J44.1 - Chronic obstructive pulmonary disease with (acute) exacerbation Status: Acute Assessment and Plan: COPD exacerbation with pneumonia 05/03 Patient is currently being treated for COPD exacerbation with solumedrol 60 mg IV q.6 hours, albuterol 5 mg nebs q.4 hours, ipratropium 0.5 nebs q.4 hours. I would decrease his Solu-Medrol to 40 mg IV q.6 and decreases albuterol to 2.5 mg nebs q.4 hours and continue the ipratropium. I would treat him for resistant organisms and will change him to vancomycin, cefepime and Levaquin. Cultures are pending. I will send a sputum culture as well as a nasal swab for extended respiratory viral pathogen panel. 05/04 He has no wheezing. His white blood cell count is 5.9. His chest x-ray is unchanged bilateral lung disease more focal in the right lung base. Continue nebulizers. I will decrease his Solu-Medrol from 40 Q 6-20 q.6 today. For his more focal right lower lobe infiltrates with a history of Pseudomonas in his sputum and recent hospitalizations will continue vancomycin, cefepime and Levaquin (started 05/03). COVID RT PCR study negative. 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
[2022-05-05] MEDS: predniSONE 20 MG TABLET 40 MG PO (12:16)
[2022-05-05 12:52] LABS: Glucose Point of Care 80 mg/dl (65-105)
[2022-05-05 16:05] LABS: Glucose Point of Care 99 mg/dl (65-105)
[2022-05-05] MEDS: ATORVASTATIN 40 MG TABLET PO (21:08)
--- NOTE | 2022-05-05 22:52 | PC.NURSE ---
This patient, Quentin Zavaleta, was transferred to [facility] on 05/05/22 at 2235. Personal belongings sent with patient. Report given to ROBERTO CARLOS BYERS. Appropriate documentation sent with patient.
[2022-05-06] VITALS (26 sets, daily range): BP systolic 140–163; BP diastolic 49–78; PULSE 69–94; RESP 15–24; TEMP 36.3–36.9; O2SAT 91–99
[2022-05-06] MEDS: ALBUTEROL SULFATE NEB 2.5 MG/3 ML INH INHALATION ×6 (00:08→20:27)
[2022-05-06] MEDS: IPRATROPIUM BR 0.02% INH SOLN 0.5 MG/2.5 ML VIAL INHALATION ×6 (00:09→20:28)
[2022-05-06 00:41] LABS: Vancomycin Trough 16.7 ug/mL (10.0-20.0)
[2022-05-06 04:47] LABS: Hematocrit 31.9 % (42.0-52.0); Hemoglobin 9.2 g/dL (14.0-18.0); Mean Corpuscular HGB Conc 28.8 g/dl (32-36); Mean Corpuscular Hemoglobin 29.4 pg (26-34); Mean Corpuscular Volume 101.9 fl (80-100); Mean Platelet Volume 9.9 fl (7.4-10.4); Platelet Count Result 140 k/mm3 (150-375); Red Blood Count 3.13 M/mm3 (4.6-6.20); Red Cell Distribution Width 15.4 % (11.5-14.5)
[2022-05-06 04:57] LABS: Aspartate Amino Transferase 19 U/L (17-59); Bilirubin,Total 0.2 mg/dL (0.2-1.3); Blood Urea Nitrogen 24 mg/dL (9-20); Calcium 8.5 mg/dL (8.4-10.2); Carbon Dioxide > 40 mmol/L (22-30); Chloride 90 mmol/L (98-107); Estimated CRCL calculation 72 ml/min; Estimated Glomerular Filt Rate > 60; Glucose 83 mg/dL (65-110); Magnesium 2.1 mg/dL (1.6-2.3); Potassium 4.5 mmol/L (3.4-5.0); Sodium 138 mmol/L (137-145)
[2022-05-06 04:58] LABS: Alanine Aminotransferase 12 U/L (6-50); Albumin Level 3.3 g/dL (3.5-5.1); Alkaline Phosphatase 113 U/L (38-126)
[2022-05-06] MEDS: PHENYTOIN SODIUM 100 MG EXTENDED RELEASE CAP 200 MG PO ×3 (05:52→20:09)
--- NOTE | 2022-05-06 07:42 | PM.PNPUL ---
Progress Note: A&P Assessment and Plan (1) Acute on chronic respiratory failure with hypoxia and hypercapnia: Code(s): J96.21 - Acute and chronic respiratory failure with hypoxia; J96.22 - Acute and chronic respiratory failure with hypercapnia Status: Acute Assessment and Plan: Patient is followed in the Pulmonary Clinic for COPD and FERNANDO and was last seen on 04/04/2022. GOLD grade 4 group D COPD with very severe obstructive abnormality with no bronchodilator response, air trapping and a moderately decreased DLCO when adjusted for alveolar volume, On BiPAP 16/6 plus 6 L bleed in (of note he did nt tolerate trelegy or Astral machines), on DuoNebs and nebulized budesonide, azithromycin 500 TIW, BiPAP 16/6 (started 08/16/2021 and previously did not tolerate trilogy or astral ventilator modes).? ?He required 4 to 5 L with rest and 6 L with activity. His M MRC was grade 4 he could walk 0.5 to 1 block and stopped for shortness of breath and his CAT score was 28.? He was unwilling to receive his COVID vaccine despite my recommendations. He previously was admitted in June 2021, July 2021 and August 2021 for COPD with respiratory failure then started on NIV. Admitted 02/18-03/01 with COVID pneumonia. Admitted 04/11/2022 through 04/16/2022 for COVID pneumonia. 05/03 patient currently admitted with worsening shortness of breath, and acute on chronic hypoxemic and hypercarbic respiratory failure with no leukocytosis, afebrile and new infiltrates in his right lower lobe. I suspect his worsening respiratory status currently is related to his right lower lobe pneumonia. Patient has a history of Pseudomonas in his sputum and has been recently admitted to the hospital on 02/18/2022 and 04/11/2022. Continue BiPAP support at this time. Currently is on 25/07 with 45% FiO2 and saturations 96%. The patient is stating he is breathing much better and may be able to tolerate brief periods off the BiPAP now. Patient should wear this BiPAP overnight. 05/04 Patient but has been on continuous BiPAP for the last 32 hours. He is awake and alert and says that he is feeling better. He is currently on BiPAP rate of 22 pressures 25/07 with tidal volumes 450-500 on 40% FiO2. His blood gas this morning is improved at 7.38/70 . Can try patient off BiPAP as tolerated. Attempt out of bed if possible. Tolerated off BiPAP for 11 hours later in the day. 05/05 Patient wore BiPAP overnight and currently he is off the BiPAP on 8 L nasal cannula saturations 99%. He states he is breathing better than when he arrived to the hospital. His white blood cell count is 6.1. His creatinine is 1.1. He is afebrile and has no wheezes. Patient is on an Astral machine with a respiratory rate of 12, and EPAP of 6, an IPAP of 16, a TI minimum of 0.2 seconds. A TI maximum of 1.5 seconds. A cycle of 25%. 05/06 Patient wears home machine with 6 L bleed in and said he that he slept much better with his home machine. Currently states he is breathing close to his baseline. He has not been out of bed. His white blood cell count is 6.0. He is afebrile. Currently he is on 6 L nasal cannula saturation 91%. If the patient remains clinically stable he would be ready to discharge from a pulmonary perspective on 05/07 on these pulmonary medicines. Prednisone 40 mg PO (last dose on 05/07) Cefdinir 300 mg PO BID (last dose 05/09) Levaquin 750 mg PO Q day (last dose 05/09) albuterol 2.5 and ipratropium 0.5 mg nebs q.4 hours while awake azithromycin 500 mg on Wednesdays and Fridays oxygen per formal home O2 assessment on 05/07 when he sleeps or naps: home Astral machine with a respiratory rate of 12, and EPAP of 6, an IPAP of 16, a TI minimum of 0.2 seconds. A TI maximum of 1.5 seconds. A cycle of 25% with 8 L bleed in. Discussed with Dr. Sargent. Will follow with you. (2) COPD exacerbation: Code(s): J44.1 - Chronic obstructive pulmonary disease with (acute) exacerbation
[2022-05-06] MEDS: ENOXAPARIN 40 MG/0.4 ML SYRINGE SUB-Q (08:43)
[2022-05-06] MEDS: PANTOPRAZOLE SODIUM IV 40 MG VIAL IV PUSH ×2 (08:43→20:09)
[2022-05-06] MEDS: predniSONE 20 MG TABLET 40 MG PO (08:43)
[2022-05-06 08:48] LABS: Glucose Point of Care 140 mg/dl (65-105)
[2022-05-06 12:53] LABS: Glucose Point of Care 125 mg/dl (65-105)
--- NOTE | 2022-05-06 13:01 | PM.IMPN ---
Progress Note: A&P Assessment and Plan (1) Acute and chronic respiratory failure with hypercapnia: Code(s): J96.22 - Acute and chronic respiratory failure with hypercapnia Status: Acute Assessment and Plan: Sudden-onset shortness of breath. Oxygen saturation in 70s on 4 L nasal cannula. PCO2 158 on arrival Placed on BiPAP in the ED improving ABG Chest x-ray with slightly increased fine reticular and ground-glass opacity mid and peripheral lungs overlying coarse interstitial opacities. CTA with no PE likely chronic scattered pneumonia most severe in the right lower lobe where there is associated bronchiectasis. Severe emphysema On steroid bronchodilators and BiPAP Pulmonary consultation ICU on board. BiPAP tapered off ABG improved he is back on his home unit now. Pulmonary following. Contemplating discharge in the morning if stable. Will do home oxygen evaluation in a.m.. Is also overnight oxygen test denies his home machine and 8 L of oxygen bleed in Discussed with Pulmonary. (2) Community acquired pneumonia: Code(s): J18.9 - Pneumonia, unspecified organism Status: Acute Assessment and Plan: Chest x-ray shows slightly increased fine reticular and ground ground-glass opacities in the mid and peripheral lungs, overlying coarse interstitial opacities. -patient has been started on ceftriaxone and azithromycin (05/03) -urine and blood cultures have been obtained pending Currently on vancomycin and cefepime will plan to switch to cefdinir and Levaquin at discharge as discussed with Pulmonary (3) Diastolic dysfunction: Code(s): I51.89 - Other ill-defined heart diseases Status: Chronic Assessment and Plan: 04/11/2022 echocardiogram showed an EF of 60-70%, 04/20/2022: Echo EF 65-70%, left ventricular diastolic function is normal left atrial chamber dimension is mildly enlarged Not in exacerbation (4) DVT prophylaxis: Code(s): Z29.9 - Encounter for prophylactic measures, unspecified Status: Acute Assessment and Plan: Lovenox (5) Anemia: Code(s): D64.9 - Anemia, unspecified Status: Acute Assessment and Plan: Chronic macrocytic anemia, hemoglobin is stable at this time, will continue to monitor (6) Seizure disorder: Code(s): G40.909 - Epilepsy, unspecified, not intractable, without status epilepticus Status: Acute Assessment and Plan: Continue phenytoin (7) Obstructive sleep apnea: Code(s): G47.33 - Obstructive sleep apnea (adult) (pediatric) Status: Acute Assessment and Plan: continue BiPAP Plan Nasal cannula BiPAP intermittently as needed and at bedtime Subjective Date/time seen: 05/06/22 13:01 Interval history: HPI:This is a 71 year old male with history of COPD, CHF , chronic respiratory failure on 4 L NC related to the ER with shortness of breath that started last night.? He was recently diagnosed with COVID about 3 weeks ago.? He denies any chest pain or increased swelling in the legs.? EMS was called and he was noted to be 71% on 4 L nasal cannula on their arrival.? He was placed on non-rebreather and was given a dose of Decadron 10 mg magnesium and an albuterol nebulizer.? Patient had improvement in his respiratory status he he was brought to the ER.? His ABG showed severe respiratory acidosis and was placed on a BiPAP.? He denies any worsening swelling in his legs recently.? He is alert and oriented x3 over a BiPAP currently.? He is admitted to the ICU for further evaluation and managementning were 7.37/71/80/41/95% on 40% FiO2. Patient is awake, alert, follows simple commands and answers to questions. Denies any chest pain, abdominal pain, nausea, vomiting, back pain. Urine output has been adequate, WBC count is normal. Creatinine is 1.0 05/04/2022 patient was on BiPAP overnight removed this a.m. he sees improved. Denies any new complaints feeling better. 05/06/2022 feeling
[2022-05-06 17:11] LABS: Glucose Point of Care 101 mg/dl (65-105)
[2022-05-06] MEDS: ATORVASTATIN 40 MG TABLET PO (20:09)
[2022-05-06 20:16] LABS: Glucose Point of Care 142 mg/dl (65-105)
[2022-05-07] VITALS (25 sets, daily range): BP systolic 141–169; BP diastolic 57–85; PULSE 66–89; RESP 16–27; TEMP 36–36.6; O2SAT 94–100
--- NOTE | 2022-05-07 00:59 | PCRCNOTE ---
0000 UPD TREATMENT NOT GIVEN DUE TO [facility] STUDY. NEXT AVAILABLE ADMINISTRATION IS 0400.
--- NOTE | 2022-05-07 02:29 | PCRCNOTE ---
[facility] STUDY DISCONTINUED ON 05/07 AT 0145. PT DISASSEMBLED [facility] CARE HOME THROUGH STUDY AND [facility] WAS TURNED OFF. REDO MAY NEED TO BE DONE AGAIN TONIGHT.
[2022-05-07] MEDS: IPRATROPIUM BR 0.02% INH SOLN 0.5 MG/2.5 ML VIAL INHALATION ×5 (04:42→19:05)
[2022-05-07] MEDS: ALBUTEROL SULFATE NEB 2.5 MG/3 ML INH INHALATION ×5 (04:42→19:05)
[2022-05-07 04:45] LABS: Hematocrit 34.3 % (42.0-52.0); Hemoglobin 9.8 g/dL (14.0-18.0); Mean Corpuscular HGB Conc 28.6 g/dl (32-36); Mean Corpuscular Volume 101.5 fl (80-100); Mean Platelet Volume 10.1 fl (7.4-10.4); Platelet Count Result 166 k/mm3 (150-375); Red Blood Count 3.38 M/mm3 (4.6-6.20); Red Cell Distribution Width 15.7 % (11.5-14.5); White Blood Count 6.7 K/mm3 (4.5-10.0)
[2022-05-07 05:08] LABS: Alanine Aminotransferase 13 U/L (6-50); Albumin Level 3.7 g/dL (3.5-5.1); Alkaline Phosphatase 122 U/L (38-126); Aspartate Amino Transferase 22 U/L (17-59); Bilirubin,Total 0.4 mg/dL (0.2-1.3); Blood Urea Nitrogen 24 mg/dL (9-20); Calcium 8.4 mg/dL (8.4-10.2); Carbon Dioxide > 40 mmol/L (22-30); Chloride 91 mmol/L (98-107); Estimated CRCL calculation 72 ml/min; Estimated Glomerular Filt Rate > 60; Glucose 84 mg/dL (65-110); Potassium 4.6 mmol/L (3.4-5.0); Sodium 138 mmol/L (137-145)
[2022-05-07 05:49] LABS: Base Excess ABG 9.3 mEq/l (+/-2.0); Fractional Inspired Oxygen 60 %; HCO3 ABG 38.5 mEq/l (22.0-26.0); Oxygen Content ABG 13.7 %vol (16.0-22.0); PO2 ABG 58.8 mmHg (80.0-100.0); PO2 FiO2 Ratio Arterial Blood 0.98 %; Total Hemoglobin 11.3 g/dL (12.0-18.0)
[2022-05-07 05:50] LABS: pH ABG 7.286 (7.350-7.450)
[2022-05-07 05:51] LABS: Device NON-INVASIVE VENT; Modified Allen's Test Pass; Oxygen Saturation ABG 85.8 % (95.0-100.0); Oxyhemoglobin 85.9 % THb (90.0-100.0); PCO2 ABG 82.7 mmHg (35.0-45.0); Site Drawn LEFT RADIAL
[2022-05-07 05:52] LABS: Non-Invasive Expiratory Pressure 6 CMH2O; Non-Invasive Vent Rate 12 /MIN
[2022-05-07 05:54] LABS: Non-Invasive Inspiratory Pressure 16 CMH2O
[2022-05-07] MEDS: PHENYTOIN SODIUM 100 MG EXTENDED RELEASE CAP 200 MG PO ×3 (06:25→21:47)
[2022-05-07 07:28] LABS: Glucose Point of Care 117 mg/dl (65-105)
[2022-05-07] MEDS: PANTOPRAZOLE SODIUM IV 40 MG VIAL IV PUSH ×2 (08:56→21:48)
[2022-05-07] MEDS: predniSONE 20 MG TABLET 40 MG PO (08:56)
[2022-05-07] MEDS: ENOXAPARIN 40 MG/0.4 ML SYRINGE SUB-Q (08:56)
[2022-05-07 11:30] LABS: Alveolar/Arterial O2 Gradient 101.6 mmHg; Base Excess ABG 15.4 mEq/l (+/-2.0); Fractional Inspired Oxygen 40 %; HCO3 ABG 45.4 mEq/l (22.0-26.0); Oxygen Content ABG 14.7 %vol (16.0-22.0); Oxygen Saturation ABG 92.9 % (95.0-100.0); Oxyhemoglobin 92.9 % THb (90.0-100.0); PO2 ABG 76.1 mmHg (80.0-100.0); Total Hemoglobin 11.2 g/dL (12.0-18.0); pH ABG 7.304 (7.350-7.450)
[2022-05-07 11:32] LABS: Device BIPAP; Modified Allen's Test Pass; PCO2 ABG 93.5 mmHg (35.0-45.0); Site Drawn RIGHT RADIAL
[2022-05-07 11:33] LABS: Expiratory Pressure 10 cmH2O; Inspiratory Pressure 18 cmH2O
[2022-05-07 11:38] LABS: Glucose Point of Care 156 mg/dl (65-105)
--- NOTE | 2022-05-07 12:57 | PM.IMPN ---
Progress Note: A&P Assessment and Plan (1) Acute and chronic respiratory failure with hypercapnia: Code(s): J96.22 - Acute and chronic respiratory failure with hypercapnia Status: Acute Assessment and Plan: Sudden-onset shortness of breath. Oxygen saturation in 70s on 4 L nasal cannula. PCO2 158 on arrival Placed on BiPAP in the ED improving ABG Chest x-ray with slightly increased fine reticular and ground-glass opacity mid and peripheral lungs overlying coarse interstitial opacities. CTA with no PE likely chronic scattered pneumonia most severe in the right lower lobe where there is associated bronchiectasis. Severe emphysema On steroid bronchodilators and BiPAP Pulmonary consultation ICU on board. BiPAP tapered off ABG improved he is back on his home unit now. Pulmonary following. Contemplating discharge in the morning if stable. Will do home oxygen evaluation in a.m.. Is also overnight oxygen test denies his home machine and 8 L of oxygen bleed in Discussed with Pulmonary. 05/07/2022 ABG reviewed worsening respiratory acidosis however did not use BiPAP all night. BiPAP 18/ started with repeat ABG. Discussed with Pulmonary. Need repeat ABG in the morning with his home machine use all throughout the night (2) Community acquired pneumonia: Code(s): J18.9 - Pneumonia, unspecified organism Status: Acute Assessment and Plan: Chest x-ray shows slightly increased fine reticular and ground ground-glass opacities in the mid and peripheral lungs, overlying coarse interstitial opacities. -patient has been started on ceftriaxone and azithromycin (05/03) -urine and blood cultures have been obtained pending Currently on vancomycin and cefepime will plan to switch to cefdinir and Levaquin at discharge as discussed with Pulmonary (3) Diastolic dysfunction: Code(s): I51.89 - Other ill-defined heart diseases Status: Chronic Assessment and Plan: 04/11/2022 echocardiogram showed an EF of 60-70%, 04/20/2022: Echo EF 65-70%, left ventricular diastolic function is normal left atrial chamber dimension is mildly enlarged Not in exacerbation (4) DVT prophylaxis: Code(s): Z29.9 - Encounter for prophylactic measures, unspecified Status: Acute Assessment and Plan: Lovenox (5) Anemia: Code(s): D64.9 - Anemia, unspecified Status: Acute Assessment and Plan: Chronic macrocytic anemia, hemoglobin is stable at this time, will continue to monitor (6) Seizure disorder: Code(s): G40.909 - Epilepsy, unspecified, not intractable, without status epilepticus Status: Acute Assessment and Plan: Continue phenytoin (7) Obstructive sleep apnea: Code(s): G47.33 - Obstructive sleep apnea (adult) (pediatric) Status: Acute Assessment and Plan: continue BiPAP Plan Nasal cannula BiPAP intermittently as needed and at bedtime Additional Plan DVT prophylaxis: Lovenox Stress ulcer prophylaxis: Protonix Nutrition: p.o. diet Code status: Full code PT OT, discontinue Medel catheter, up in chair, incentive spirometry Subjective Date/time seen: 05/07/22 12:57 Interval history: HPI:This is a 71 year old male with history of COPD, CHF , chronic respiratory failure on 4 L NC related to the ER with shortness of breath that started last night.? He was recently diagnosed with COVID about 3 weeks ago.? He denies any chest pain or increased swelling in the legs.? EMS was called and he was noted to be 71% on 4 L nasal cannula on their arrival.? He was placed on non-rebreather and was given a dose of Decadron 10 mg magnesium and an albuterol nebulizer.? Patient had improvement in his respiratory status he he was brought to the ER.? His ABG showed severe respiratory acidosis and was placed on a BiPAP.? He denies any worsening swelling in his legs recently.? He is alert and oriented x3 over a BiPAP currently.? He is admitted to the ICU
[2022-05-07 16:59] LABS: Glucose Point of Care 106 mg/dl (65-105)
--- NOTE | 2022-05-07 18:02 | PM.PNPUL ---
Progress Note: A&P Assessment and Plan (1) Acute on chronic respiratory failure with hypoxia and hypercapnia: Code(s): J96.21 - Acute and chronic respiratory failure with hypoxia; J96.22 - Acute and chronic respiratory failure with hypercapnia Status: Acute Assessment and Plan: Patient is followed in the Pulmonary Clinic for COPD and FERNANDO and was last seen on 04/04/2022. GOLD grade 4 group D COPD with very severe obstructive abnormality with no bronchodilator response, air trapping and a moderately decreased DLCO when adjusted for alveolar volume, On BiPAP 16/6 plus 6 L bleed in (of note he did nt tolerate trelegy or Astral machines), on DuoNebs and nebulized budesonide, azithromycin 500 TIW, BiPAP 16/6 (started 08/16/2021 and previously did not tolerate trilogy or astral ventilator modes).? ?He required 4 to 5 L with rest and 6 L with activity. His M MRC was grade 4 he could walk 0.5 to 1 block and stopped for shortness of breath and his CAT score was 28.? He was unwilling to receive his COVID vaccine despite my recommendations. He previously was admitted in June 2021, July 2021 and August 2021 for COPD with respiratory failure then started on NIV. Admitted 02/18-03/01 with COVID pneumonia. Admitted 04/11/2022 through 04/16/2022 for COVID pneumonia. 05/03 patient currently admitted with worsening shortness of breath, and acute on chronic hypoxemic and hypercarbic respiratory failure with no leukocytosis, afebrile and new infiltrates in his right lower lobe. I suspect his worsening respiratory status currently is related to his right lower lobe pneumonia. Patient has a history of Pseudomonas in his sputum and has been recently admitted to the hospital on 02/18/2022 and 04/11/2022. Continue BiPAP support at this time. Currently is on 25/07 with 45% FiO2 and saturations 96%. The patient is stating he is breathing much better and may be able to tolerate brief periods off the BiPAP now. Patient should wear this BiPAP overnight. 05/04 Patient but has been on continuous BiPAP for the last 32 hours. He is awake and alert and says that he is feeling better. He is currently on BiPAP rate of 22 pressures 25/07 with tidal volumes 450-500 on 40% FiO2. His blood gas this morning is improved at 7.38/70 1. Can try patient off BiPAP as tolerated. Attempt out of bed if possible. Tolerated off BiPAP for 11 hours later in the day. 05/05 Patient wore BiPAP overnight and currently he is off the BiPAP on 8 L nasal cannula saturations 99%. He states he is breathing better than when he arrived to the hospital. His white blood cell count is 6.1. His creatinine is 1.1. He is afebrile and has no wheezes. Patient is on an Astral machine with a respiratory rate of 12, and EPAP of 6, an IPAP of 16, a TI minimum of 0.2 seconds. A TI maximum of 1.5 seconds. A cycle of 25%. 05/06 Patient wears home machine with 6 L bleed in and said he that he slept much better with his home machine. Currently states he is breathing close to his baseline. He has not been out of bed. His white blood cell count is 6.0. He is afebrile. Currently he is on 6 L nasal cannula saturation 91%. 05/07 Patient wears home machine with 8 L bleed in last night sporadically. He took his apnea link set up off so there was no data. Patient had an ABG of 7.29/83/59 but he may have been off his noninvasive for a number of hours. Currently today the patient feels like he is breathing back at his baseline and denies any fever, chills, phlegm production. He was then placed on BiPAP 18/10 and had a repeat gas of 7.30/94/76. It should be noted that the patient has a very difficult time tolerating noninvasive ventilation and after months of trying AVAPS-AE mode and then an Astral he eventually could only tolerate BiPAP 16/6. I talked to him and he thinks that he can tolerate more pressure and I will place him on his home Astral machine with a respiratory rate of 16, and EPAP of 6,
[2022-05-07 20:44] LABS: Glucose Point of Care 157 mg/dl (65-105)
[2022-05-07] MEDS: ATORVASTATIN 40 MG TABLET PO (21:48)
[2022-05-08] VITALS (25 sets, daily range): BP systolic 116–156; BP diastolic 46–75; PULSE 62–92; RESP 16–28; TEMP 36.2–36.7; O2SAT 88–100
[2022-05-08 04:53] LABS: Hematocrit 32.9 % (42.0-52.0); Hemoglobin 9.9 g/dL (14.0-18.0); Immature Platelet Fraction Pct 3.4 % (0.9-11.2); Mean Corpuscular HGB Conc 30.1 g/dl (32-36); Mean Corpuscular Hemoglobin 29.7 pg (26-34); Mean Corpuscular Volume 98.8 fl (80-100); Mean Platelet Volume 10.1 fl (7.4-10.4); Platelet Count Result 131 k/mm3 (150-375); Red Blood Count 3.33 M/mm3 (4.6-6.20); Red Cell Distribution Width 15.6 % (11.5-14.5); White Blood Count 6.4 K/mm3 (4.5-10.0)
[2022-05-08 05:30] LABS: Alveolar/Arterial O2 Gradient 164.6 mmHg; Base Excess ABG 10.2 mEq/l (+/-2.0); Fractional Inspired Oxygen 50 %; HCO3 ABG 40.1 mEq/l (22.0-26.0); Oxygen Content ABG 15.8 %vol (16.0-22.0); Oxygen Saturation ABG 95.5 % (95.0-100.0); Oxyhemoglobin 94.5 % THb (90.0-100.0); PO2 FiO2 Ratio Arterial Blood 1.84 %; Total Hemoglobin 11.8 g/dL (12.0-18.0)
[2022-05-08 05:32] LABS: Alanine Aminotransferase 12 U/L (6-50); Albumin Level 3.3 g/dL (3.5-5.1); Alkaline Phosphatase 106 U/L (38-126); Aspartate Amino Transferase 17 U/L (17-59); Bilirubin,Total 0.2 mg/dL (0.2-1.3); Blood Urea Nitrogen 23 mg/dL (9-20); Calcium 8.5 mg/dL (8.4-10.2); Carbon Dioxide > 40 mmol/L (22-30); Chloride 88 mmol/L (98-107); Estimated CRCL calculation 72 ml/min; Estimated Glomerular Filt Rate > 60; Glucose 93 mg/dL (65-110); Potassium 4.4 mmol/L (3.4-5.0); Sodium 134 mmol/L (137-145)
[2022-05-08 05:34] LABS: PCO2 ABG 88.8 mmHg (35.0-45.0); Site Drawn RIGHT RADIAL; pH ABG 7.273 (7.350-7.450)
[2022-05-08 05:35] LABS: Device NON-INVASIVE VENT; Modified Allen's Test Pass
[2022-05-08 05:37] LABS: Non-Invasive Expiratory Pressure 10 CMH2O; Non-Invasive Inspiratory Pressure 18 CMH2O; Non-Invasive Vent Rate 22 /MIN
[2022-05-08] MEDS: PHENYTOIN SODIUM 100 MG EXTENDED RELEASE CAP 200 MG PO ×3 (06:05→21:18)
[2022-05-08 07:34] LABS: Glucose Point of Care 155 mg/dl (65-105)
[2022-05-08] MEDS: ALBUTEROL SULFATE NEB 2.5 MG/3 ML INH INHALATION ×5 (09:16→23:52)
[2022-05-08] MEDS: IPRATROPIUM BR 0.02% INH SOLN 0.5 MG/2.5 ML VIAL INHALATION ×5 (09:16→23:52)
[2022-05-08] MEDS: ENOXAPARIN 40 MG/0.4 ML SYRINGE SUB-Q (09:31)
[2022-05-08] MEDS: PANTOPRAZOLE SODIUM IV 40 MG VIAL IV PUSH ×2 (09:32→21:18)
[2022-05-08 10:21] LABS: Alveolar/Arterial O2 Gradient 203.2 mmHg; Base Excess ABG 10.8 mEq/l (+/-2.0); Fractional Inspired Oxygen 52 %; HCO3 ABG 40.4 mEq/l (22.0-26.0); Oxygen Content ABG 14.6 %vol (16.0-22.0); Oxygen Saturation ABG 90.7 % (95.0-100.0); Oxyhemoglobin 90.6 % THb (90.0-100.0); PO2 ABG 69.5 mmHg (80.0-100.0); PO2 FiO2 Ratio Arterial Blood 1.34 %; Total Hemoglobin 11.4 g/dL (12.0-18.0)
[2022-05-08 10:23] LABS: pH ABG 7.282 (7.350-7.450)
[2022-05-08 10:25] LABS: Device HIGH FLOW NASAL CANN; Modified Allen's Test Pass; PCO2 ABG 87.6 mmHg (35.0-45.0); Site Drawn RIGHT RADIAL
--- NOTE | 2022-05-08 11:01 | PM.PNPUL ---
Progress Note: A&P Assessment and Plan (1) Acute respiratory failure with hypoxia: Code(s): J96.01 - Acute respiratory failure with hypoxia Status: Acute Assessment and Plan: 71-year-old man with very severe COPD, severe bronchiectasis bilaterally with previous history of Pseudomonas in sputum, history of obesity, obstructive sleep apnea, intolerant of home ventilatory support via a trilogy, history of frequent hospitalizations with acute on chronic hypercapnic and hypoxemic respiratory failure, very severe obstructive airway disease on recent testing, with previously elevated pulmonary artery systolic pressure on echocardiogram done 2 years ago presented with acute on chronic hypercapnic respiratory failure. The patient had a transient improvement of ABGs following noninvasive ventilatory support in the unit. over the last 2 days he continues to have persistent respiratory acidosis despite the treatment with antibiotics and noninvasive ventilatory support using own BiPAP machine. On ABGs done twice a day today he still had hypercapnic respiratory failure with pH of less than 7.3 and on ApneaLink done last night he still had significant oxyhemoglobin desaturation on his own BiPAP machine. On physical exam the patient has no evidence of wheezing or sputum production. His recent MRSA screen was negative. Plan: will continue with continuous BiPAP support using 12/6 pressures along with supplemental oxygen to keep O2 saturation greater than 90%. Vancomycin was discontinued. Will continue with levofloxacin and cefepime for another day. Patient will have repeat chest x-ray today, TSH and repeat ABGs in the morning. Will consider repeat ApneaLink prior to discharge home. (2) Chronic obstructive pulmonary disease: Code(s): J44.9 - Chronic obstructive pulmonary disease, unspecified Status: Acute (3) Acute on chronic respiratory failure with hypoxia and hypercapnia: Code(s): J96.21 - Acute and chronic respiratory failure with hypoxia; J96.22 - Acute and chronic respiratory failure with hypercapnia Status: Acute (4) Obstructive sleep apnea: Code(s): G47.33 - Obstructive sleep apnea (adult) (pediatric) Status: Acute (5) Seizure disorder: Code(s): G40.909 - Epilepsy, unspecified, not intractable, without status epilepticus Status: Acute (6) Secondary pulmonary hypertension: Status: Acute (7) Bronchiectasis: Qualifiers: Bronchiectasis type: uncomplicated Qualified Code(s): J47.9 - Bronchiectasis, uncomplicated Code(s): J47.9 - Bronchiectasis, uncomplicated Status: Acute (8) COPD (chronic obstructive pulmonary disease): Qualifiers: COPD type: unspecified COPD Qualified Code(s): J44.9 - Chronic obstructive pulmonary disease, unspecified Code(s): J44.9 - Chronic obstructive pulmonary disease, unspecified Status: Acute Subjective Date/time seen: 05/08/22 11:01 Patient is followed in the Pulmonary Clinic for COPD and FERNANDO and was last seen on 04/04/2022. GOLD grade 4 group D COPD with very severe obstructive abnormality with no bronchodilator response, air trapping and a moderately decreased DLCO when adjusted for alveolar volume, On BiPAP 16/6 plus 6 L bleed in (of note he did nt tolerate trelegy or Astral machines), on DuoNebs and nebulized budesonide, azithromycin 500 TIW, BiPAP 16/6 (started 08/16/2021 and previously did not tolerate trilogy or astral ventilator modes).? ?He required 4 to 5 L with rest and 6 L? with activity. His M MRC was grade 4 he could walk 0.5 to 1 block and stopped for shortness of breath and his CAT score was 28.? He was unwilling to receive his COVID vaccine despite my recommendations. He previously was admitted in June 2021, July 2021 and August 2021 for COPD with respiratory failure then started on NIV. Admitted 02/18-03/01 with COVID pneumonia. Admitted 04/11/2022 through 04/16/2022 for COVID pneumon
[2022-05-08 13:06] LABS: Glucose Point of Care 125 mg/dl (65-105)
--- NOTE | 2022-05-08 13:09 | PM.IMPN ---
Progress Note: A&P Assessment and Plan (1) Acute and chronic respiratory failure with hypercapnia: Code(s): J96.22 - Acute and chronic respiratory failure with hypercapnia Status: Acute Assessment and Plan: Sudden-onset shortness of breath. Oxygen saturation in 70s on 4 L nasal cannula. PCO2 158 on arrival Placed on BiPAP in the ED improving ABG Chest x-ray with slightly increased fine reticular and ground-glass opacity mid and peripheral lungs overlying coarse interstitial opacities. CTA with no PE likely chronic scattered pneumonia most severe in the right lower lobe where there is associated bronchiectasis. Severe emphysema On steroid bronchodilators and BiPAP Pulmonary consultation ICU on board. BiPAP tapered off ABG improved he is back on his home unit now. Pulmonary following. Contemplating discharge in the morning if stable. Will do home oxygen evaluation in a.m.. Is also overnight oxygen test denies his home machine and 8 L of oxygen bleed in Discussed with Pulmonary. 05/07/2022 ABG reviewed worsening respiratory acidosis however did not use BiPAP all night. BiPAP 25/07 started with repeat ABG. Discussed with Pulmonary. Need repeat ABG in the morning with his home machine use all throughout the night 05/08/2022 ABG with persistent respiratory acidosis. Discussed Pulmonary. Back on BiPAP with different settings at 12/6. Repeat ABG in a.m. and x-ray in a.m.. Chest x-ray today reviewed with no new changes (2) Community acquired pneumonia: Code(s): J18.9 - Pneumonia, unspecified organism Status: Acute Assessment and Plan: Chest x-ray shows slightly increased fine reticular and ground ground-glass opacities in the mid and peripheral lungs, overlying coarse interstitial opacities. -patient has been started on ceftriaxone and azithromycin (05/03) -urine and blood cultures have been obtained pending Currently on vancomycin and cefepime which will be kept as is. will plan to switch to cefdinir and Levaquin at discharge as discussed with Pulmonary (3) Diastolic dysfunction: Code(s): I51.89 - Other ill-defined heart diseases Status: Chronic Assessment and Plan: 04/11/2022 echocardiogram showed an EF of 60-70%, 04/20/2022: Echo EF 65-70%, left ventricular diastolic function is normal left atrial chamber dimension is mildly enlarged Not in exacerbation (4) DVT prophylaxis: Code(s): Z29.9 - Encounter for prophylactic measures, unspecified Status: Acute Assessment and Plan: Lovenox (5) Anemia: Code(s): D64.9 - Anemia, unspecified Status: Acute Assessment and Plan: Chronic macrocytic anemia, hemoglobin is stable at this time, will continue to monitor (6) Seizure disorder: Code(s): G40.909 - Epilepsy, unspecified, not intractable, without status epilepticus Status: Acute Assessment and Plan: Continue phenytoin (7) Obstructive sleep apnea: Code(s): G47.33 - Obstructive sleep apnea (adult) (pediatric) Status: Acute Assessment and Plan: continue BiPAP Plan Nasal cannula BiPAP intermittently as needed and at bedtime Additional Plan DVT prophylaxis: Lovenox Stress ulcer prophylaxis: Protonix Nutrition: p.o. diet Code status: Full code PT OT, discontinue Medel catheter, up in chair, incentive spirometry Subjective Date/time seen: 05/08/22 13:09 Interval history: HPI:This is a 71 year old male with history of COPD, CHF , chronic respiratory failure on 4 L NC related to the ER with shortness of breath that started last night.? He was recently diagnosed with COVID about 3 weeks ago.? He denies any chest pain or increased swelling in the legs.? EMS was called and he was noted to be 71% on 4 L nasal cannula on their arrival.? He was placed on non-rebreather and was given a dose of Decadron 10 mg magnesium and an albuterol nebulizer.? Patient had improvement in his respiratory stat
[2022-05-08 18:33] LABS: Glucose Point of Care 114 mg/dl (65-105)
[2022-05-08 20:45] LABS: Glucose Point of Care 157 mg/dl (65-105)
[2022-05-08] MEDS: ATORVASTATIN 40 MG TABLET PO (21:18)
[2022-05-09] VITALS (31 sets, daily range): BP systolic 142–152; BP diastolic 55–69; PULSE 65–81; RESP 18–26; TEMP 36.2–36.8; O2SAT 83–100
[2022-05-09] MEDS: IPRATROPIUM BR 0.02% INH SOLN 0.5 MG/2.5 ML VIAL INHALATION ×5 (03:43→20:25)
[2022-05-09] MEDS: ALBUTEROL SULFATE NEB 2.5 MG/3 ML INH INHALATION ×5 (03:43→20:25)
[2022-05-09 05:07] LABS: Hematocrit 35.8 % (42.0-52.0); Hemoglobin 10.5 g/dL (14.0-18.0); Mean Corpuscular HGB Conc 29.3 g/dl (32-36); Mean Corpuscular Hemoglobin 29.4 pg (26-34); Mean Corpuscular Volume 100.3 fl (80-100); Mean Platelet Volume 10.2 fl (7.4-10.4); Platelet Count Result 143 k/mm3 (150-375); Red Blood Count 3.57 M/mm3 (4.6-6.20); Red Cell Distribution Width 15.4 % (11.5-14.5); White Blood Count 6.1 K/mm3 (4.5-10.0)
[2022-05-09 05:37] LABS: Alanine Aminotransferase 13 U/L (6-50); Albumin Level 3.7 g/dL (3.5-5.1); Alkaline Phosphatase 117 U/L (38-126); Aspartate Amino Transferase 20 U/L (17-59); Bilirubin,Total 0.3 mg/dL (0.2-1.3); Blood Urea Nitrogen 24 mg/dL (9-20); Calcium 8.7 mg/dL (8.4-10.2); Carbon Dioxide > 40 mmol/L (22-30); Chloride 89 mmol/L (98-107); Estimated CRCL calculation 79 ml/min; Estimated Glomerular Filt Rate > 60; Glucose 87 mg/dL (65-110); Magnesium 2.1 mg/dL (1.6-2.3); Potassium 4.2 mmol/L (3.4-5.0); Sodium 135 mmol/L (137-145)
[2022-05-09] MEDS: PHENYTOIN SODIUM 100 MG EXTENDED RELEASE CAP 200 MG PO ×3 (05:57→22:17)
[2022-05-09 07:55] LABS: Glucose Point of Care 100 mg/dl (65-105)
[2022-05-09 08:00] LABS: Alveolar/Arterial O2 Gradient 137.4 mmHg; Base Excess ABG 12.1 mEq/l (+/-2.0); Fractional Inspired Oxygen 52 %; HCO3 ABG 41.4 mEq/l (22.0-26.0); Oxygen Content ABG 15.5 %vol (16.0-22.0); Oxygen Saturation ABG 98.3 % (95.0-100.0); Oxyhemoglobin 97.4 % THb (90.0-100.0); PO2 ABG 137.2 mmHg (80.0-100.0); PO2 FiO2 Ratio Arterial Blood 2.64 %; Total Hemoglobin 11.1 g/dL (12.0-18.0); pH ABG 7.301 (7.350-7.450)
[2022-05-09 08:05] LABS: Device HIGH FLOW NASAL CANN; Modified Allen's Test Pass; PCO2 ABG 85.9 mmHg (35.0-45.0); Site Drawn RIGHT RADIAL
--- NOTE | 2022-05-09 09:41 | PM.PNPUL ---
Progress Note: A&P Assessment and Plan (1) Acute respiratory failure with hypoxia: Code(s): J96.01 - Acute respiratory failure with hypoxia Status: Acute Assessment and Plan: 71-year-old man with very severe COPD, severe bronchiectasis bilaterally with previous history of Pseudomonas in sputum, history of obesity, obstructive sleep apnea, intolerant of home ventilatory support via trilogy, history of frequent hospitalizations with acute on chronic hypercapnic and hypoxemic respiratory failure, very severe obstructive airway disease on recent testing, with previously elevated pulmonary artery systolic pressure on echocardiogram done 2 years ago presented with acute on chronic hypercapnic respiratory failure. The patient had a transient improvement of ABGs following noninvasive ventilatory support in the unit. over the last 3 days he continues to have persistent respiratory acidosis despite treatment with antibiotics and noninvasive ventilatory support using own BiPAP machine. Since yesterday the patient was switched to just BiPAP support using lower pressures 09/12. The rationale for what these low pressure has to do with the patient's end-stage COPD and the the fact that high pressures might lead to lung overinflation. On ABGs done today, there was slight improvement of his hypercapnic respiratory failure although patient used BiPAP support for half of the night only. continue with BiPAP support during the day and repeat blood gases later on today. Will consider apnealink tonight if there is further improvement of hypercapnic respiratory failure on repeat blood gases. (2) Chronic obstructive pulmonary disease: Code(s): J44.9 - Chronic obstructive pulmonary disease, unspecified Status: Acute (3) Acute on chronic respiratory failure with hypoxia and hypercapnia: Code(s): J96.21 - Acute and chronic respiratory failure with hypoxia; J96.22 - Acute and chronic respiratory failure with hypercapnia Status: Acute (4) Obstructive sleep apnea: Code(s): G47.33 - Obstructive sleep apnea (adult) (pediatric) Status: Acute (5) Seizure disorder: Code(s): G40.909 - Epilepsy, unspecified, not intractable, without status epilepticus Status: Acute (6) Secondary pulmonary hypertension: Status: Acute (7) Bronchiectasis: Qualifiers: Bronchiectasis type: uncomplicated Qualified Code(s): J47.9 - Bronchiectasis, uncomplicated Code(s): J47.9 - Bronchiectasis, uncomplicated Status: Acute (8) COPD (chronic obstructive pulmonary disease): Qualifiers: COPD type: unspecified COPD Qualified Code(s): J44.9 - Chronic obstructive pulmonary disease, unspecified Code(s): J44.9 - Chronic obstructive pulmonary disease, unspecified Status: Acute Subjective Date/time seen: 05/09/22 09:41 patient has no new respiratory symptoms this morning. Used BiPAP support last night until approximately 4:00 a.m. after which time he was refusing further treatment with BiPAP. Currently on nasal cannula sitting up in bed. Arterial blood gases showed pH of around 7.30 which is slightly improved from last ABG done yesterday. Review of Systems Review of Systems: All system review is negative except as noted in HPI and below. Exam Narrative: GENERAL APPEARANCE: Well developed, well nourished, alert and cooperative, and appears to be in mild respiratory distress. SKIN: Inspection of the skin reveals no rashes, ulcerations or petechiae. HEENT: Sclerae anicteric and conjunctivae pink and moist. Extraocular movements were intact and pupils were equal, round, and reactive to light. NECK: Supple. There was no thyroid enlargement, and no tenderness, or masses were felt. LUNGS: Auscultation of the lungs revealed distant breath sounds with no wheezing. CARDIAC: There was a regular rate and rhythm without any murmurs, gallops, rubs. ABDOMEN: Soft and nontender wi
[2022-05-09] MEDS: PANTOPRAZOLE SODIUM IV 40 MG VIAL IV PUSH ×2 (10:40→20:09)
[2022-05-09] MEDS: ENOXAPARIN 40 MG/0.4 ML SYRINGE SUB-Q (10:40)
[2022-05-09 12:53] LABS: Glucose Point of Care 132 mg/dl (65-105)
--- NOTE | 2022-05-09 14:46 | PM.IMPN ---
Progress Note: A&P Assessment and Plan (1) Acute and chronic respiratory failure with hypercapnia: Code(s): J96.22 - Acute and chronic respiratory failure with hypercapnia Status: Acute Assessment and Plan: Sudden-onset shortness of breath. Oxygen saturation in 70s on 4 L nasal cannula. PCO2 158 on arrival Placed on BiPAP in the ED improving ABG Chest x-ray with slightly increased fine reticular and ground-glass opacity mid and peripheral lungs overlying coarse interstitial opacities. CTA with no PE likely chronic scattered pneumonia most severe in the right lower lobe where there is associated bronchiectasis. Severe emphysema On steroid bronchodilators and BiPAP Pulmonary consultation ICU on board. BiPAP tapered off ABG improved he is back on his home unit now. Pulmonary following. Contemplating discharge in the morning if stable. Will do home oxygen evaluation in a.m.. Is also overnight oxygen test denies his home machine and 8 L of oxygen bleed in Discussed with Pulmonary. 05/07/2022 ABG reviewed worsening respiratory acidosis however did not use BiPAP all night. BiPAP 25/07 started with repeat ABG. Discussed with Pulmonary. Need repeat ABG in the morning with his home machine use all throughout the night 05/08/2022 ABG with persistent respiratory acidosis. Discussed Pulmonary. Back on BiPAP with different settings at 12/6. Repeat ABG in a.m. and x-ray in a.m.. Chest x-ray today reviewed with no new changes 05/09/2022 ABG with persistent respiratory acidosis. Settings changed per Pulmonary to AVAPS. Chest x-ray unchanged. Repeat ABG in the morning (2) Community acquired pneumonia: Code(s): J18.9 - Pneumonia, unspecified organism Status: Acute Assessment and Plan: Chest x-ray shows slightly increased fine reticular and ground ground-glass opacities in the mid and peripheral lungs, overlying coarse interstitial opacities. -patient has been started on ceftriaxone and azithromycin (05/03) -urine and blood cultures have been obtained pending Currently on vancomycin and cefepime which will be kept as is. plan to switch to cefdinir and Levaquin at discharge as discussed with Pulmonary (3) Diastolic dysfunction: Code(s): I51.89 - Other ill-defined heart diseases Status: Chronic Assessment and Plan: 04/11/2022 echocardiogram showed an EF of 60-70%, 04/20/2022: Echo EF 65-70%, left ventricular diastolic function is normal left atrial chamber dimension is mildly enlarged Not in exacerbation (4) DVT prophylaxis: Code(s): Z29.9 - Encounter for prophylactic measures, unspecified Status: Acute Assessment and Plan: Lovenox (5) Anemia: Code(s): D64.9 - Anemia, unspecified Status: Acute Assessment and Plan: Chronic macrocytic anemia, hemoglobin is stable at this time, will continue to monitor (6) Seizure disorder: Code(s): G40.909 - Epilepsy, unspecified, not intractable, without status epilepticus Status: Acute Assessment and Plan: Continue phenytoin (7) Obstructive sleep apnea: Code(s): G47.33 - Obstructive sleep apnea (adult) (pediatric) Status: Acute Assessment and Plan: continue BiPAP Plan Nasal cannula BiPAP intermittently as needed and at bedtime Additional Plan DVT prophylaxis: Lovenox Stress ulcer prophylaxis: Protonix Nutrition: p.o. diet Code status: Full code PT OT, discontinue Medel catheter, up in chair, incentive spirometry Subjective Date/time seen: 05/09/22 14:46 Interval history: HPI:This is a 71 year old male with history of COPD, CHF , chronic respiratory failure on 4 L NC related to the ER with shortness of breath that started last night.? He was recently diagnosed with COVID about 3 weeks ago.? He denies any chest pain or increased swelling in the legs.? EMS was called and he was noted to be 71% on 4 L nasal cannula on their arrival.? He was placed on
[2022-05-09 16:45] LABS: Alveolar/Arterial O2 Gradient 127.6 mmHg; Base Excess ABG 10.2 mEq/l (+/-2.0); Fractional Inspired Oxygen 45 %; HCO3 ABG 39.7 mEq/l (22.0-26.0); Oxygen Content ABG 14.5 %vol (16.0-22.0); Oxygen Saturation ABG 95.6 % (95.0-100.0); Oxyhemoglobin 94.8 % THb (90.0-100.0); PO2 FiO2 Ratio Arterial Blood 2.07 %; Total Hemoglobin 10.8 g/dL (12.0-18.0)
[2022-05-09 16:46] LABS: PCO2 ABG 88.1 mmHg (35.0-45.0); Site Drawn RIGHT RADIAL; pH ABG 7.272 (7.350-7.450)
[2022-05-09 16:47] LABS: Device BIPAP; Expiratory Pressure 5 cmH2O; Modified Allen's Test Pass
[2022-05-09 20:00] LABS: Glucose Point of Care 151 mg/dl (65-105)
[2022-05-09] MEDS: ATORVASTATIN 40 MG TABLET PO (20:09)
[2022-05-10] VITALS (27 sets, daily range): BP systolic 119–160; BP diastolic 53–94; PULSE 61–97; RESP 18–27; TEMP 36.3–36.8; O2SAT 90–100
[2022-05-10 04:16] LABS: Alveolar/Arterial O2 Gradient 111.7 mmHg; Base Excess ABG 12.5 mEq/l (+/-2.0); Fractional Inspired Oxygen 45 %; HCO3 ABG 43.5 mEq/l (22.0-26.0); Oxygen Saturation ABG 95.4 % (95.0-100.0); Oxyhemoglobin 95.2 % THb (90.0-100.0); PO2 ABG 93.9 mmHg (80.0-100.0); PO2 FiO2 Ratio Arterial Blood 2.09 %; Total Hemoglobin 11.9 g/dL (12.0-18.0)
[2022-05-10 04:18] LABS: pH ABG 7.251 (7.350-7.450)
[2022-05-10 04:19] LABS: Device NON-INVASIVE VENT; Modified Allen's Test Pass; PCO2 ABG 101.3 mmHg (35.0-45.0); Site Drawn RIGHT RADIAL
[2022-05-10 04:20] LABS: Non-Invasive Expiratory Pressure 5 CMH2O; Non-Invasive Vent Rate 16 /MIN
[2022-05-10 05:24] LABS: Hematocrit 33.3 % (42.0-52.0); Hemoglobin 9.8 g/dL (14.0-18.0); Immature Platelet Fraction Pct 4.1 % (0.9-11.2); Mean Corpuscular HGB Conc 29.4 g/dl (32-36); Mean Corpuscular Hemoglobin 29.6 pg (26-34); Mean Corpuscular Volume 100.6 fl (80-100); Mean Platelet Volume 10.3 fl (7.4-10.4); Platelet Count Result 134 k/mm3 (150-375); Red Blood Count 3.31 M/mm3 (4.6-6.20); Red Cell Distribution Width 15.4 % (11.5-14.5)
[2022-05-10] MEDS: PHENYTOIN SODIUM 100 MG EXTENDED RELEASE CAP 200 MG PO ×3 (05:32→21:16)
[2022-05-10 06:03] LABS: Alanine Aminotransferase 11 U/L (6-50); Albumin Level 3.6 g/dL (3.5-5.1); Alkaline Phosphatase 108 U/L (38-126); Aspartate Amino Transferase 22 U/L (17-59); Bilirubin,Total 0.4 mg/dL (0.2-1.3); Blood Urea Nitrogen 23 mg/dL (9-20); Carbon Dioxide > 40 mmol/L (22-30); Chloride 89 mmol/L (98-107); Estimated CRCL calculation 80 ml/min; Estimated Glomerular Filt Rate > 60; Glucose 88 mg/dL (65-110); Potassium 4.8 mmol/L (3.4-5.0); Sodium 137 mmol/L (137-145)
[2022-05-10 07:48] LABS: Glucose Point of Care 101 mg/dl (65-105)
[2022-05-10] MEDS: IPRATROPIUM BR 0.02% INH SOLN 0.5 MG/2.5 ML VIAL INHALATION (09:19)
[2022-05-10] MEDS: ALBUTEROL SULFATE NEB 2.5 MG/3 ML INH INHALATION ×4 (09:19→21:45)
[2022-05-10 09:41] LABS: Alveolar/Arterial O2 Gradient 84.6 mmHg; Base Excess ABG 12.5 mEq/l (+/-2.0); Fractional Inspired Oxygen 35 %; HCO3 ABG 42.6 mEq/l (22.0-26.0); Oxygen Content ABG 13.6 %vol (16.0-22.0); PO2 ABG 56.7 mmHg (80.0-100.0); PO2 FiO2 Ratio Arterial Blood 1.62 %; Total Hemoglobin 11.2 g/dL (12.0-18.0)
[2022-05-10 09:45] LABS: Modified Allen's Test Pass; Site Drawn LEFT RADIAL
[2022-05-10 09:46] LABS: Device NON-INVASIVE VENT
[2022-05-10 09:47] LABS: Non-Invasive Expiratory Pressure 5 CMH2O; Non-Invasive Vent Rate 20 /MIN
--- NOTE | 2022-05-10 10:07 | PCNWS ---
Weekly nutritional screen. Patient is tolerating current heart healthy diet with adequate intake at 100% all meals. No weight loss reported. No nutritional needs at this time.
[2022-05-10] MEDS: ENOXAPARIN 40 MG/0.4 ML SYRINGE SUB-Q (10:18)
[2022-05-10] MEDS: methylPREDNISolone SOD SUCC 40 MG VIAL IV PUSH (10:24)
--- NOTE | 2022-05-10 10:43 | PM.PNPUL ---
Progress Note: A&P Assessment and Plan (1) Acute respiratory failure with hypoxia: Code(s): J96.01 - Acute respiratory failure with hypoxia Status: Acute Assessment and Plan: 71-year-old man with very severe COPD, severe bronchiectasis bilaterally with previous history of Pseudomonas in sputum, history of obesity, obstructive sleep apnea, intolerant of home ventilatory support via trilogy, history of frequent hospitalizations with acute on chronic hypercapnic and hypoxemic respiratory failure, very severe obstructive airway disease on recent testing, with previously elevated pulmonary artery systolic pressure on echocardiogram done 2 years ago presented with acute on chronic hypercapnic respiratory failure. The patient had a transient improvement of ABGs following noninvasive ventilatory support in the unit. over the last 4 days he continues to have persistent respiratory acidosis despite treatment with antibiotics and noninvasive ventilatory support using own BiPAP machine or AVAPS arterial blood gases this a.m. essentially unchanged, still showing acute on chronic hypercapnic respiratory failure with pH in the range of 7.25 to 7.27. The patient is fully awake cooperative and not in severe respiratory distress when was taken off the BiPAP support this morning. in view of inability to correct the respiratory acidosis via noninvasive ventilatory support the patient was placed on just nasal cannula using low-flow oxygen to maintain oxygen saturation near 90%. will start patient on Solu-Medrol 40 mg daily for 5 days and also on mucolytic agent to help expectorate retained secretions. Will repeat blood gases later on today and resume BiPAP support at night. (2) Chronic obstructive pulmonary disease: Code(s): J44.9 - Chronic obstructive pulmonary disease, unspecified Status: Acute (3) Acute on chronic respiratory failure with hypoxia and hypercapnia: Code(s): J96.21 - Acute and chronic respiratory failure with hypoxia; J96.22 - Acute and chronic respiratory failure with hypercapnia Status: Acute (4) Obstructive sleep apnea: Code(s): G47.33 - Obstructive sleep apnea (adult) (pediatric) Status: Acute (5) Seizure disorder: Code(s): G40.909 - Epilepsy, unspecified, not intractable, without status epilepticus Status: Acute (6) Secondary pulmonary hypertension: Status: Acute (7) Bronchiectasis: Qualifiers: Bronchiectasis type: uncomplicated Qualified Code(s): J47.9 - Bronchiectasis, uncomplicated Code(s): J47.9 - Bronchiectasis, uncomplicated Status: Acute (8) COPD (chronic obstructive pulmonary disease): Qualifiers: COPD type: unspecified COPD Qualified Code(s): J44.9 - Chronic obstructive pulmonary disease, unspecified Code(s): J44.9 - Chronic obstructive pulmonary disease, unspecified Status: Acute Subjective Date/time seen: 05/10/22 10:43 A patient has no new respiratory symptoms. Used AVAPS last night. Arterial blood gas still showing acute on chronic hypercapnic respiratory failure with pH is in the range of 7.25-7.27. the minute ventilation was in the range of 13-15 liters/minute patient's respiratory rate while on AVAPS approximately 25 per minute AVAPS settings: TV 550, EPAP 5. Review of Systems Review of Systems: review of systems is unremarkable except as noted in HPI and below Exam Narrative: GENERAL APPEARANCE: Well developed, well nourished, alert and cooperative, and appears to be in mild respiratory distress. SKIN: Inspection of the skin reveals no rashes, ulcerations or petechiae. HEENT: Sclerae anicteric and conjunctivae pink and moist. Extraocular movements were intact and pupils were equal, round, and reactive to light. NECK: Supple. There was no thyroid enlargement, and no tenderness, or masses were felt. LUNGS: Auscultation of the lungs revealed distant breath sounds with no wheezing.
[2022-05-10 12:16] LABS: Glucose Point of Care 166 mg/dl (65-105)
[2022-05-10] MEDS: ACETYLCYSTEINE 20% INHAL SOLN 800 MG/4 ML VIAL 200 MG INHALATION ×2 (13:54→21:45)
[2022-05-10 14:34] LABS: Oxygen Saturation ABG 83.6 % (95.0-100.0); Oxyhemoglobin 85.9 % THb (90.0-100.0)
[2022-05-10 14:35] LABS: PCO2 ABG 93.1 mmHg (35.0-45.0); pH ABG 7.278 (7.350-7.450)
[2022-05-10 15:05] LABS: Alveolar/Arterial O2 Gradient 146.3 mmHg; Base Excess ABG 11.5 mEq/l (+/-2.0); Fractional Inspired Oxygen 44 %; HCO3 ABG 41.7 mEq/l (22.0-26.0); Oxygen Content ABG 13.5 %vol (16.0-22.0); PO2 ABG 58.2 mmHg (80.0-100.0); PO2 FiO2 Ratio Arterial Blood 1.32 %; Total Hemoglobin 11.1 g/dL (12.0-18.0)
[2022-05-10 15:09] LABS: PCO2 ABG 95.8 mmHg (35.0-45.0); pH ABG 7.257 (7.350-7.450)
[2022-05-10 15:10] LABS: Oxygen Saturation ABG 83.9 % (95.0-100.0); Oxyhemoglobin 86.2 % THb (90.0-100.0); Site Drawn LEFT RADIAL
[2022-05-10 15:11] LABS: Device HIGH FLOW NASAL CANN; Modified Allen's Test Pass
[2022-05-10] MEDS: FUROSEMIDE INJ 40 MG/4 ML VIAL 20 MG IV PUSH (16:52)
[2022-05-10 17:00] LABS: Glucose Point of Care 223 mg/dl (65-105)
--- NOTE | 2022-05-10 17:29 | PM.IMPN ---
Progress Note: A&P Assessment and Plan (1) Acute and chronic respiratory failure with hypercapnia: Code(s): J96.22 - Acute and chronic respiratory failure with hypercapnia Status: Acute Assessment and Plan: Sudden-onset shortness of breath. Oxygen saturation in 70s on 4 L nasal cannula. PCO2 158 on arrival Placed on BiPAP in the ED improving ABG Chest x-ray with slightly increased fine reticular and ground-glass opacity mid and peripheral lungs overlying coarse interstitial opacities. CTA with no PE likely chronic scattered pneumonia most severe in the right lower lobe where there is associated bronchiectasis. Severe emphysema On steroid bronchodilators and BiPAP Pulmonary consultation ICU on board. BiPAP tapered off ABG improved he is back on his home unit now. Pulmonary following. Contemplating discharge in the morning if stable. Will do home oxygen evaluation in a.m.. Is also overnight oxygen test denies his home machine and 8 L of oxygen bleed in Discussed with Pulmonary. 05/07/2022 ABG reviewed worsening respiratory acidosis however did not use BiPAP all night. BiPAP 25/07 started with repeat ABG. Discussed with Pulmonary. Need repeat ABG in the morning with his home machine use all throughout the night 05/08/2022 ABG with persistent respiratory acidosis. Discussed Pulmonary. Back on BiPAP with different settings at 12/6. Repeat ABG in a.m. and x-ray in a.m.. Chest x-ray today reviewed with no new changes 05/09/2022 ABG with persistent respiratory acidosis. Settings changed per Pulmonary to AVAPS. Chest x-ray unchanged. Repeat ABG in the morning 05/10/2022 interval history: patient is 71-year-old male with history severe COPD and bronchiectasis presented hypercapnic respiratory failure patient is seen by pulmonology being treated with cefepime, methylprednisone 40 mg q.day bronchodilator and mucolytics, patient wore a BiPAP with AVAPS settings, however ABG this morning does not show significant improvement, with pH 7.257 and Co2 95.8, patient is also morbidly obese has hypoventilation patient is seen by pulmonology and further recommendation to follow. (2) Community acquired pneumonia: Code(s): J18.9 - Pneumonia, unspecified organism Status: Acute Assessment and Plan: Chest x-ray shows slightly increased fine reticular and ground ground-glass opacities in the mid and peripheral lungs, overlying coarse interstitial opacities. -patient has been started on ceftriaxone and azithromycin (05/03) -urine and blood cultures have been obtained pending Currently on vancomycin and cefepime which will be kept as is. plan to switch to cefdinir and Levaquin at discharge as discussed with Pulmonary (3) Diastolic dysfunction: Code(s): I51.89 - Other ill-defined heart diseases Status: Chronic Assessment and Plan: 04/11/2022 echocardiogram showed an EF of 60-70%, 04/20/2022: Echo EF 65-70%, left ventricular diastolic function is normal left atrial chamber dimension is mildly enlarged Not in exacerbation (4) DVT prophylaxis: Code(s): Z29.9 - Encounter for prophylactic measures, unspecified Status: Acute Assessment and Plan: Lovenox (5) Anemia: Code(s): D64.9 - Anemia, unspecified Status: Acute Assessment and Plan: Chronic macrocytic anemia, hemoglobin is stable at this time, will continue to monitor (6) Seizure disorder: Code(s): G40.909 - Epilepsy, unspecified, not intractable, without status epilepticus Status: Acute Assessment and Plan: Continue phenytoin (7) Obstructive sleep apnea: Code(s): G47.33 - Obstructive sleep apnea (adult) (pediatric) Status: Acute Assessment and Plan: continue BiPAP Plan Nasal cannula BiPAP intermittently as needed and at bedtime Subjective Date/time seen: 05/10/22 17:29 Interval history: HPI:This is a 71 year old male with history of COPD, CHF , chr
[2022-05-10] MEDS: INSULIN ASPART (*BKC) 100 UNITS/ML SUB-Q (17:58)
[2022-05-10 20:38] LABS: Glucose Point of Care 112 mg/dl (65-105)
[2022-05-10] MEDS: ATORVASTATIN 40 MG TABLET PO (21:17)
[2022-05-11] VITALS (34 sets, daily range): BP systolic 128–152; BP diastolic 48–64; PULSE 64–84; RESP 18–26; TEMP 36.2–37.1; O2SAT 90–100
[2022-05-11] MEDS: ALBUTEROL SULFATE NEB 2.5 MG/3 ML INH INHALATION ×7 (00:30→23:28)
[2022-05-11] MEDS: PHENYTOIN SODIUM 100 MG EXTENDED RELEASE CAP 200 MG PO ×3 (05:06→21:06)
[2022-05-11 06:28] LABS: Estimated CRCL calculation 80 ml/min; Estimated Glomerular Filt Rate > 60
[2022-05-11 08:23] LABS: Glucose Point of Care 170 mg/dl (65-105)
[2022-05-11 08:36] LABS: Alveolar/Arterial O2 Gradient 134.6 mmHg; Base Excess ABG 8.7 mEq/l (+/-2.0); Fractional Inspired Oxygen 40 %; HCO3 ABG 37.2 mEq/l (22.0-26.0); Oxygen Content ABG 13.3 %vol (16.0-22.0); Oxygen Saturation ABG 88.8 % (95.0-100.0); Oxyhemoglobin 88.8 % THb (90.0-100.0); PO2 ABG 62.9 mmHg (80.0-100.0); PO2 FiO2 Ratio Arterial Blood 1.57 %; Total Hemoglobin 10.6 g/dL (12.0-18.0); pH ABG 7.306 (7.350-7.450)
[2022-05-11 08:41] LABS: Device NASAL CANNULA; Modified Allen's Test Pass; PCO2 ABG 76.3 mmHg (35.0-45.0); Site Drawn LEFT RADIAL
--- NOTE | 2022-05-11 08:43 | PM.PNPUL ---
Progress Note: A&P Assessment and Plan (1) Acute respiratory failure with hypoxia: Code(s): J96.01 - Acute respiratory failure with hypoxia Status: Acute Assessment and Plan: 71-year-old man with very severe COPD, severe bronchiectasis bilaterally with previous history of Pseudomonas in sputum, history of obesity, obstructive sleep apnea, intolerant of home ventilatory support via trilogy, history of frequent hospitalizations with acute on chronic hypercapnic and hypoxemic respiratory failure, very severe obstructive airway disease on recent testing, with previously elevated pulmonary artery systolic pressure on echocardiogram done 2 years ago and prominent pulmonary artery on last CT all suggestive of pulmonary hypertension presented with acute on chronic hypercapnic respiratory failure. The patient had a transient improvement of ABGs following noninvasive ventilatory support in the unit. over the last 5 days, he has had persistent respiratory acidosis despite treatment with antibiotics and noninvasive ventilatory support using own BiPAP machine or AVAPS. Since yesterday the patient has been on Solu-Medrol 40 mg IV daily for 5 days, nebulized Mucomyst twice daily along with nebulized short-acting bronchodilators in an attempt to improve pulmonary toilet. In addition the patient was started on Lasix 20 mg IV. Spent last night on AVAPS. Arterial blood gases this a.m. showed pH of 7.30, Which is improved from yesterday. As stated the patient is requiring relatively high oxygen flow rate most likely related to end-stage COPD with development of pulmonary hypertension. He desaturates with any movement in bed or when trying to get out of bed. Last chest x-ray showed no evidence of new infiltrates and no pleural effusions. Plan: we will continue with current regimen consisting of IV steroids for 5 days, pulmonary toilet with nebulized mucolytic agents and short-acting bronchodilators and Lasix IV p.r.n.. Antibiotics were discontinued. Will repeat blood gases tomorrow am and resume BiPAP support at night. (2) Chronic obstructive pulmonary disease: Code(s): J44.9 - Chronic obstructive pulmonary disease, unspecified Status: Acute (3) Acute on chronic respiratory failure with hypoxia and hypercapnia: Code(s): J96.21 - Acute and chronic respiratory failure with hypoxia; J96.22 - Acute and chronic respiratory failure with hypercapnia Status: Acute (4) Obstructive sleep apnea: Code(s): G47.33 - Obstructive sleep apnea (adult) (pediatric) Status: Acute (5) Seizure disorder: Code(s): G40.909 - Epilepsy, unspecified, not intractable, without status epilepticus Status: Acute (6) Secondary pulmonary hypertension: Status: Acute (7) Bronchiectasis: Qualifiers: Bronchiectasis type: uncomplicated Qualified Code(s): J47.9 - Bronchiectasis, uncomplicated Code(s): J47.9 - Bronchiectasis, uncomplicated Status: Acute (8) COPD (chronic obstructive pulmonary disease): Qualifiers: COPD type: unspecified COPD Qualified Code(s): J44.9 - Chronic obstructive pulmonary disease, unspecified Code(s): J44.9 - Chronic obstructive pulmonary disease, unspecified Status: Acute Subjective Date/time seen: 05/11/22 08:43 Patient slept well last night. Spent the night on AVAPS support. fully awake alert on supplemental oxygen this a.m.. Currently on 6 L per minute oxygen via nasal cannula desaturating when standing up or taking couple of steps in room. has no fever or wheezing. Review of Systems Review of Systems: All system review is negative except as noted in HPI and below. Exam Narrative: GENERAL APPEARANCE: Well developed, well nourished, alert and cooperative, and appears to be in mild respiratory distress. SKIN: Inspection of the skin reveals no rashes, ulcerations or petechiae. HEENT: Sclerae anicteric and conjunctivae pi
[2022-05-11] MEDS: FUROSEMIDE INJ 40 MG/4 ML VIAL 20 MG IV PUSH (09:52)
[2022-05-11] MEDS: methylPREDNISolone SOD SUCC 40 MG VIAL IV PUSH (09:53)
[2022-05-11] MEDS: ENOXAPARIN 40 MG/0.4 ML SYRINGE SUB-Q (09:53)
[2022-05-11 09:56] LABS: NT Pro B Type Natriuretic Pept 78 pg/mL (5-100)
[2022-05-11 11:50] LABS: Glucose Point of Care 193 mg/dl (65-105)
--- NOTE | 2022-05-11 13:57 | PM.IMPN ---
Progress Note: A&P Assessment and Plan (1) Acute and chronic respiratory failure with hypercapnia: Code(s): J96.22 - Acute and chronic respiratory failure with hypercapnia Status: Acute Assessment and Plan: Sudden-onset shortness of breath. Oxygen saturation in 70s on 4 L nasal cannula. PCO2 158 on arrival Placed on BiPAP in the ED improving ABG Chest x-ray with slightly increased fine reticular and ground-glass opacity mid and peripheral lungs overlying coarse interstitial opacities. CTA with no PE likely chronic scattered pneumonia most severe in the right lower lobe where there is associated bronchiectasis. Severe emphysema On steroid bronchodilators and BiPAP Pulmonary consultation ICU on board. BiPAP tapered off ABG improved he is back on his home unit now. Pulmonary following. Contemplating discharge in the morning if stable. Will do home oxygen evaluation in a.m.. Is also overnight oxygen test denies his home machine and 8 L of oxygen bleed in Discussed with Pulmonary. 05/07/2022 ABG reviewed worsening respiratory acidosis however did not use BiPAP all night. BiPAP / started with repeat ABG. Discussed with Pulmonary. Need repeat ABG in the morning with his home machine use all throughout the night 05/08/2022 ABG with persistent respiratory acidosis. Discussed Pulmonary. Back on BiPAP with different settings at 12/6. Repeat ABG in a.m. and x-ray in a.m.. Chest x-ray today reviewed with no new changes 05/09/2022 ABG with persistent respiratory acidosis. Settings changed per Pulmonary to AVAPS. Chest x-ray unchanged. Repeat ABG in the morning 05/10/2022 interval history: patient is 71-year-old male with history severe COPD and bronchiectasis presented hypercapnic respiratory failure patient is seen by pulmonology being treated with cefepime, methylprednisone 40 mg q.day bronchodilator and mucolytics, patient wore a BiPAP with AVAPS settings, however ABG this morning does not show significant improvement, with pH 7.257 and Co2 95.8, patient is also morbidly obese has hypoventilation patient is seen by pulmonology and further recommendation to follow. 05/11/2022 interval history: patient is 71-year-old male with history severe COPD and bronchiectasis presented with hypercapnic respiratory failure patient is seen by pulmonology being treated with cefepime, methylprednisone 40 mg q.day bronchodilator and mucolytics, last night patient wore a BiPAP with AVAPS settings, his ABG this morning does show significant improvement, with pH 7.306 and Co2 76.3, currently patient on 6 L nasal cannula however, he does get desaturated with ambulation. patient is also morbidly obese has hypoventilation patient is seen by pulmonology and further recommendation to follow. (2) Community acquired pneumonia: Code(s): J18.9 - Pneumonia, unspecified organism Status: Acute Assessment and Plan: Chest x-ray shows slightly increased fine reticular and ground ground-glass opacities in the mid and peripheral lungs, overlying coarse interstitial opacities. -patient has been started on ceftriaxone and azithromycin (05/03) -urine and blood cultures have been obtained pending Currently on vancomycin and cefepime which will be kept as is. plan to switch to cefdinir and Levaquin at discharge as discussed with Pulmonary (3) Diastolic dysfunction: Code(s): I51.89 - Other ill-defined heart diseases Status: Chronic Assessment and Plan: 04/11/2022 echocardiogram showed an EF of 60-70%, 04/20/2022: Echo EF 65-70%, left ventricular diastolic function is normal left atrial chamber dimension is mildly enlarged Not in exacerbation (4) DVT prophylaxis: Code(s): Z29.9 - Encounter for prophylactic measures, unspecified Status: Acute Assessment and Plan: Lovenox (5) Anemia: Code(s): D64.9 - Anemia, unspecified Status: Acute Assessment and Plan: Chronic macrocytic anemia, hem
[2022-05-11 16:32] LABS: Glucose Point of Care 169 mg/dl (65-105)
[2022-05-11 20:21] LABS: Glucose Point of Care 133 mg/dl (65-105)
[2022-05-11] MEDS: ATORVASTATIN 40 MG TABLET PO (21:06)
[2022-05-12] VITALS (29 sets, daily range): BP systolic 136–161; BP diastolic 55–73; PULSE 64–85; RESP 16–30; TEMP 36.1–36.8; O2SAT 90–100
[2022-05-12] MEDS: ALBUTEROL SULFATE NEB 2.5 MG/3 ML INH INHALATION ×6 (04:35→23:50)
[2022-05-12 04:44] LABS: Alveolar/Arterial O2 Gradient 202.4 mmHg; Base Excess ABG 15.1 mEq/l (+/-2.0); Fractional Inspired Oxygen 60 %; HCO3 ABG 45.8 mEq/l (22.0-26.0); Oxygen Content ABG 14.9 %vol (16.0-22.0); Oxygen Saturation ABG 96.9 % (95.0-100.0); Oxyhemoglobin 96.3 % THb (90.0-100.0); PO2 ABG 110.5 mmHg (80.0-100.0); PO2 FiO2 Ratio Arterial Blood 1.84 %; Total Hemoglobin 10.9 g/dL (12.0-18.0)
[2022-05-12 04:45] LABS: Modified Allen's Test Unable to perform; PCO2 ABG 104.5 mmHg (35.0-45.0); Site Drawn LEFT RADIAL
[2022-05-12 04:46] LABS: Device NON-INVASIVE VENT
[2022-05-12 04:47] LABS: Non-Invasive Expiratory Pressure 6 CMH2O; Non-Invasive Inspiratory Pressure 20 CMH2O; Non-Invasive Vent Rate 16 /MIN
[2022-05-12 05:04] LABS: Blood Urea Nitrogen 23 mg/dL (9-20); Calcium 8.1 mg/dL (8.4-10.2); Carbon Dioxide > 40 mmol/L (22-30); Chloride 87 mmol/L (98-107); Estimated CRCL calculation 80 ml/min; Estimated Glomerular Filt Rate > 60; Glucose 95 mg/dL (65-110); Potassium 4.9 mmol/L (3.4-5.0); Sodium 135 mmol/L (137-145)
[2022-05-12] MEDS: PHENYTOIN SODIUM 100 MG EXTENDED RELEASE CAP 200 MG PO ×2 (06:02→22:16)
[2022-05-12 08:09] LABS: Glucose Point of Care 123 mg/dl (65-105)
[2022-05-12] MEDS: methylPREDNISolone SOD SUCC 40 MG VIAL IV PUSH (09:09)
[2022-05-12] MEDS: ENOXAPARIN 40 MG/0.4 ML SYRINGE SUB-Q (09:09)
--- NOTE | 2022-05-12 09:14 | PM.PNPUL ---
Progress Note: A&P Assessment and Plan (1) Acute respiratory failure with hypoxia: Code(s): J96.01 - Acute respiratory failure with hypoxia Status: Acute Assessment and Plan: 71-year-old man with very severe COPD, severe bronchiectasis bilaterally with previous history of Pseudomonas in sputum, history of obesity, obstructive sleep apnea, intolerant of home ventilatory support via trilogy, history of frequent hospitalizations with acute on chronic hypercapnic and hypoxemic respiratory failure, very severe obstructive airway disease on recent testing, with previously elevated pulmonary artery systolic pressure on echocardiogram done 2 years ago and prominent pulmonary artery on last CT all suggestive of pulmonary hypertension presented with acute on chronic hypercapnic respiratory failure. The patient had a transient improvement of ABGs following noninvasive ventilatory support in the unit. over the last 5 days, he has had persistent respiratory acidosis despite treatment with antibiotics and noninvasive ventilatory support using own BiPAP machine or AVAPS. for the last 2 days the patient has been on Solu-Medrol 40 mg IV daily for 5 days, nebulized Mucomyst twice daily along with nebulized short-acting bronchodilators in an attempt to improve pulmonary toilet. In addition the patient he received Lasix 20 mg IV x2 over the last 2 days. Spent last night on own BIPAP machine. Arterial blood gases this a.m. showed pH of 7.25. the patient is requiring relatively high oxygen flow rate most likely related to end-stage COPD with development of pulmonary hypertension. He desaturates with any movement in bed or when trying to get out of bed. Last chest x-ray showed no evidence of new infiltrates and no pleural effusions. while on noninvasive ventilatory support his minute ventilation is in the range of approximately 13-16 liters/minute and a respiratory rate of about 26 per minute. the patient was placed back on AVAPS with tidal volume of 550 EPAP of 5 backup rate of 20 and supplemental oxygen at 35%. Will measure arterial blood gases in about an hour. (2) Chronic obstructive pulmonary disease: Code(s): J44.9 - Chronic obstructive pulmonary disease, unspecified Status: Acute (3) Acute on chronic respiratory failure with hypoxia and hypercapnia: Code(s): J96.21 - Acute and chronic respiratory failure with hypoxia; J96.22 - Acute and chronic respiratory failure with hypercapnia Status: Acute (4) Obstructive sleep apnea: Code(s): G47.33 - Obstructive sleep apnea (adult) (pediatric) Status: Acute (5) Seizure disorder: Code(s): G40.909 - Epilepsy, unspecified, not intractable, without status epilepticus Status: Acute (6) Secondary pulmonary hypertension: Status: Acute (7) Bronchiectasis: Qualifiers: Bronchiectasis type: uncomplicated Qualified Code(s): J47.9 - Bronchiectasis, uncomplicated Code(s): J47.9 - Bronchiectasis, uncomplicated Status: Acute (8) COPD (chronic obstructive pulmonary disease): Qualifiers: COPD type: unspecified COPD Qualified Code(s): J44.9 - Chronic obstructive pulmonary disease, unspecified Code(s): J44.9 - Chronic obstructive pulmonary disease, unspecified Status: Acute Subjective Date/time seen: 05/12/22 09:14 Patient used his own BiPAP support machine last night. Arterial blood gases this morning showed worsening hypercapnia with a pH in the range of 7.25 and pCO2 over 100 mmHg. Patient has no new respiratory symptoms. Review of Systems Review of Systems: All systems reviewed & are unremarkable except as noted in HPI and below Exam Narrative: GENERAL APPEARANCE: Well developed, well nourished, alert and cooperative, and appears to be in mild respiratory distress. SKIN: Inspection of the skin reveals no rashes, ulcerations or petechiae. HEENT: Sclerae anicteric and conjunctivae
[2022-05-12 11:25] LABS: Base Excess ABG 15.1 mEq/l (+/-2.0); Carboxyhemoglobin 0.2 % THb (0-2.0); Fractional Inspired Oxygen 50 %; HCO3 ABG 45.3 mEq/l (22.0-26.0); Methemoglobin ABG 0.1 %THb (0-1.5); Oxygen Saturation ABG 92.8 % (95.0-100.0); PO2 ABG 77.8 mmHg (80.0-100.0); PO2 FiO2 Ratio Arterial Blood 1.56 %; Reduced Hemoglobin 5.7 %THb (0-5.0); Total Hemoglobin 10.5 g/dL (12.0-18.0)
[2022-05-12 11:30] LABS: Device NON-INVASIVE VENT; Modified Allen's Test Pass; PCO2 ABG 99.3 mmHg (35.0-45.0); Site Drawn LEFT RADIAL; pH ABG 7.277 (7.350-7.450)
[2022-05-12 11:31] LABS: Non-Invasive Expiratory Pressure 8 CMH2O; Non-Invasive Inspiratory Pressure 16 CMH2O; Non-Invasive Vent Rate 10 /MIN
[2022-05-12 12:19] LABS: Glucose Point of Care 130 mg/dl (65-105)
--- NOTE | 2022-05-12 15:46 | PM.IMPN ---
Progress Note: A&P Assessment and Plan (1) Acute and chronic respiratory failure with hypercapnia: Code(s): J96.22 - Acute and chronic respiratory failure with hypercapnia Status: Acute Assessment and Plan: Sudden-onset shortness of breath. Oxygen saturation in 70s on 4 L nasal cannula. PCO2 158 on arrival Placed on BiPAP in the ED improving ABG Chest x-ray with slightly increased fine reticular and ground-glass opacity mid and peripheral lungs overlying coarse interstitial opacities. CTA with no PE likely chronic scattered pneumonia most severe in the right lower lobe where there is associated bronchiectasis. Severe emphysema On steroid bronchodilators and BiPAP Pulmonary consultation ICU on board. BiPAP tapered off ABG improved he is back on his home unit now. Pulmonary following. Contemplating discharge in the morning if stable. Will do home oxygen evaluation in a.m.. Is also overnight oxygen test denies his home machine and 8 L of oxygen bleed in Discussed with Pulmonary. 05/07/2022 ABG reviewed worsening respiratory acidosis however did not use BiPAP all night. BiPAP / started with repeat ABG. Discussed with Pulmonary. Need repeat ABG in the morning with his home machine use all throughout the night 05/08/2022 ABG with persistent respiratory acidosis. Discussed Pulmonary. Back on BiPAP with different settings at 12/6. Repeat ABG in a.m. and x-ray in a.m.. Chest x-ray today reviewed with no new changes 05/09/2022 ABG with persistent respiratory acidosis. Settings changed per Pulmonary to AVAPS. Chest x-ray unchanged. Repeat ABG in the morning 05/10/2022 interval history: patient is 71-year-old male with history severe COPD and bronchiectasis presented hypercapnic respiratory failure patient is seen by pulmonology being treated with cefepime, methylprednisone 40 mg q.day bronchodilator and mucolytics, patient wore a BiPAP with AVAPS settings, however ABG this morning does not show significant improvement, with pH 7.257 and Co2 95.8, patient is also morbidly obese has hypoventilation patient is seen by pulmonology and further recommendation to follow. 05/11/2022 interval history: patient is 71-year-old male with history severe COPD and bronchiectasis presented with hypercapnic respiratory failure patient is seen by pulmonology being treated with cefepime, methylprednisone 40 mg q.day bronchodilator and mucolytics, last night patient wore a BiPAP with AVAPS settings, his ABG this morning does show significant improvement, with pH 7.306 and Co2 76.3, currently patient on 6 L nasal cannula however, he does get desaturated with ambulation. patient is also morbidly obese has hypoventilation patient is seen by pulmonology and further recommendation to follow. 05/12/2022 interval history: patient is 71-year-old male with history severe COPD and bronchiectasis presented with hypercapnic respiratory failure patient is seen by pulmonology being treated with cefepime, methylprednisone 40 mg q.day bronchodilator and mucolytics, currently patient on 6 L nasal cannula however, he does get desaturated with ambulation. today I spoke with the welding estimator patient with a persistent hypercapnia care and requiring constant BiPAP recommending DNR and hospice care, today myself and district scout executive spoke with the patient's and daughter have agreed for DNR and will discuss with hospice service will continue present management and monitor (2) Community acquired pneumonia: Code(s): J18.9 - Pneumonia, unspecified organism Status: Acute Assessment and Plan: Chest x-ray shows slightly increased fine reticular and ground ground-glass opacities in the mid and peripheral lungs, overlying coarse interstitial opacities. -patient has been started on ceftriaxone and azithromycin (05/03) -urine and blood cultures have been obtained pending Currently on vancomycin and cefepime which will be kept as is. plan to switch to cefdin
[2022-05-12 16:27] LABS: Glucose Point of Care 110 mg/dl (65-105)
[2022-05-12 21:01] LABS: Glucose Point of Care 106 mg/dl (65-105)
[2022-05-12] MEDS: ATORVASTATIN 40 MG TABLET PO (22:16)
[2022-05-13] VITALS (19 sets, daily range): BP systolic 116–163; BP diastolic 54–72; PULSE 60–74; RESP 20–29; TEMP 35.9–36.3; O2SAT 87–100
[2022-05-13] MEDS: ALBUTEROL SULFATE NEB 2.5 MG/3 ML INH INHALATION ×3 (03:31→12:05)
[2022-05-13] MEDS: PHENYTOIN SODIUM 100 MG EXTENDED RELEASE CAP 200 MG PO (06:38)
[2022-05-13 08:02] LABS: Glucose Point of Care 98 mg/dl (65-105)
--- NOTE | 2022-05-13 10:58 | PM.DS ---
DS: Admitting Diagnosis Discharge Date 05/13/2022 Admitting Diagnosis shortness of breath DS: Discharge Diagnosis Discharge Diagnosis (1) Acute and chronic respiratory failure with hypercapnia: Code(s): J96.22 - Acute and chronic respiratory failure with hypercapnia Status: Acute Assessment and Plan: Sudden-onset shortness of breath. Oxygen saturation in 70s on 4 L nasal cannula. PCO2 158 on arrival Placed on BiPAP in the ED improving ABG Chest x-ray with slightly increased fine reticular and ground-glass opacity mid and peripheral lungs overlying coarse interstitial opacities. CTA with no PE likely chronic scattered pneumonia most severe in the right lower lobe where there is associated bronchiectasis. Severe emphysema On steroid bronchodilators and BiPAP Pulmonary consultation ICU on board. BiPAP tapered off ABG improved he is back on his home unit now. Pulmonary following. Contemplating discharge in the morning if stable. Will do home oxygen evaluation in a.m.. Is also overnight oxygen test denies his home machine and 8 L of oxygen bleed in Discussed with Pulmonary. 05/07/2022 ABG reviewed worsening respiratory acidosis however did not use BiPAP all night. BiPAP 25/07 started with repeat ABG. Discussed with Pulmonary. Need repeat ABG in the morning with his home machine use all throughout the night 05/08/2022 ABG with persistent respiratory acidosis. Discussed Pulmonary. Back on BiPAP with different settings at 12/6. Repeat ABG in a.m. and x-ray in a.m.. Chest x-ray today reviewed with no new changes 05/09/2022 ABG with persistent respiratory acidosis. Settings changed per Pulmonary to AVAPS. Chest x-ray unchanged. Repeat ABG in the morning 05/10/2022 interval history: patient is 71-year-old male with history severe COPD and bronchiectasis presented hypercapnic respiratory failure patient is seen by pulmonology being treated with cefepime, methylprednisone 40 mg q.day bronchodilator and mucolytics, patient wore a BiPAP with AVAPS settings, however ABG this morning does not show significant improvement, with pH 7.257 and Co2 95.8, patient is also morbidly obese has hypoventilation patient is seen by pulmonology and further recommendation to follow. 05/11/2022 interval history: patient is 71-year-old male with history severe COPD and bronchiectasis presented with hypercapnic respiratory failure patient is seen by pulmonology being treated with cefepime, methylprednisone 40 mg q.day bronchodilator and mucolytics, last night patient wore a BiPAP with AVAPS settings, his ABG this morning does show significant improvement, with pH 7.306 and Co2 76.3, currently patient on 6 L nasal cannula however, he does get desaturated with ambulation. patient is also morbidly obese has hypoventilation patient is seen by pulmonology and further recommendation to follow. 05/12/2022 interval history: patient is 71-year-old male with history severe COPD and bronchiectasis presented with hypercapnic respiratory failure patient is seen by pulmonology being treated with cefepime, methylprednisone 40 mg q.day bronchodilator and mucolytics, currently patient on 6 L nasal cannula however, he does get desaturated with ambulation. today I spoke with the copy clerk patient with a persistent hypercapnia care and requiring constant BiPAP recommending DNR and hospice care, today myself and courtesy bus driver spoke with the patient's and daughter have agreed for DNR and will discuss with hospice service will continue present management and monitor (2) Community acquired pneumonia: Code(s): J18.9 - Pneumonia, unspecified organism Status: Acute Assessment and Plan: Chest x-ray shows slightly increased fine reticular and ground ground-glass opacities in the mid and peripheral lungs, overlying coarse interstitial opacities. -patient has been started on ceftriaxone and azithromycin (05/03) -urine and blood cultures have been obta
[2022-05-13 11:57] LABS: Glucose Point of Care 93 mg/dl (65-105)
--- NOTE | 2022-05-16 20:21 | PC.NURSE ---
critical arterial ph abg of 7.[address] singh at 0536 on 05/08/22
== END 2022-05-13 13:25 | disposition hospice, home (50) | DRG 189 ==
LOC: ANHED 05-03 02:31 → ANHICU 05-03 02:36 → ANHIMU 05-05 22:51
PROVIDERS: Internal Medicine; Internal Medicine Pulmonary Disease; Admitting Provider Internal Medicine; Emergency Provider General Practice; PCP Student in an Organized Health Care Education/Training Program; Visit Provider Family Medicine
DX: J96.22 Acute and chronic respiratory failure with hypercapnia (principal); J18.9 Pneumonia, unspecified organism; I50.32 Chronic diastolic (congestive) heart failure; J96.21 Acute and chronic respiratory failure with hypoxia; J43.9 Emphysema, unspecified; J47.9 Bronchiectasis, uncomplicated; Z20.822 Contact with and (suspected) exposure to COVID-19; G47.33 Obstructive sleep apnea (adult) (pediatric); I27.20 Pulmonary hypertension, unspecified; I11.0 Hypertensive heart disease with heart failure; D53.9 Nutritional anemia, unspecified; G40.909 Epilepsy, unspecified, not intractable, without status epilepticus; E78.5 Hyperlipidemia, unspecified; Z66 Do not resuscitate; E66.9 Obesity, unspecified; Z68.30 Body mass index [BMI] 30.0-30.9, adult; Z28.310 Unvaccinated for COVID-19; Z79.82 Long term (current) use of aspirin; Z79.899 Other long term (current) drug therapy; Z85.46 Personal history of malignant neoplasm of prostate; Z86.16 Personal history of COVID-19; Z86.73 Personal history of transient ischemic attack (TIA), and cerebral infarction without residual deficits; Z87.891 Personal history of nicotine dependence; Z92.3 Personal history of irradiation; Z99.81 Dependence on supplemental oxygen
CPT/HCPCS: 36415; 36600; 51701; 71045; 71275; 80048; 80053; 80185; 80202; 81001; 82375; 82565; 82805; 82948; 83050; 83605; 83735; 83880; 84100; 84484; 85025; 85027; 85055; 85610; 85730; 87040; 87070; 87081; 87086; 87205; 93005; 94002; 94003; 94640; 94660; 94762; 96360; 97161; 97165; 99291; A9270; C9113; C9803; J0456; J0692; J0696; J1165; J1650; J1815; J1940; J1956; J2920; J2930; J3370; J7030; J7050; J7512; Q9967; U0003; U0005